=== PATIENT | female | born 1940 | race Caucasian/White ===

== ENCOUNTER 2020-01-30 11:38 | Inpatient (IN) | payer MEDICARE, SELFPAY ==
[2020-01-30] VITALS (9 sets, daily range): BP systolic 99–140; BP diastolic 40–83; PULSE 63–86; RESP 15–19; TEMP 36.8–37.9; O2SAT 97–100; BMI 33.8
--- NOTE | 2020-01-30 12:12 | ECG_ITS ---
Test Reason : SOB Blood Pressure : / mmHG Vent. Rate : 072 BPM Atrial Rate : 254 BPM P-R Int : 000 ms QRS Dur : 128 ms QT Int : 426 ms P-R-T Axes : 054 -73 -73 degrees QTc Int : 466 ms Atrial flutter with variable A-V block with premature ventricular or aberrantly conducted complexes Left axis deviation Non-specific intra-ventricular conduction block T wave abnormality, consider inferior ischemia Abnormal ECG When compared with ECG of 10-MAY-2016 08:57, Atrial flutter has replaced Sinus rhythm T wave inversion now evident in Inferior leads Nonspecific T wave abnormality, worse in Anterolateral leads Referred By: Altagracia Wall Electronically Signed By:FRAN PABON MD
--- NOTE | 2020-01-30 12:13 | XR_ITS ---
EXAMINATION: XR CHEST CLINICAL INFORMATION: SOB, pneumonia, cough COMPARISON: Chest 07/14/2016 TECHNIQUE: Frontal view of the chest was obtained. FINDINGS: The lungs are fairly well-expanded with new patchy opacity seen in left upper lobe and left lower lobe suspicious for infiltrate. There is no suggestion of pleural effusion. The heart size and perivascular is normal. There are median sternotomy sutures from previous intervention. No gross bony abnormality seen. XR/XR chest 1V IMPRESSION: New left upper lobe and left lower lobe infiltrates.
--- NOTE | 2020-01-30 12:19 | ED_ITS ---
HPI - URI/Sore Throat General Chief Complaint: Upper Respiratory Symptoms Stated Complaint: covid+,sob,ams Time Seen by Provider: 01/30/20 12:12 Source: EMS Mode of arrival: EMS Limitations: no limitations History of Present Illness HPI Narrative: 79-year-old female with a past medical history of COPD on chronic home O2, valve replacement, hypertension, high cholesterol, gout, congestive heart failure, SABRINA, depression, diet controlled diabetes, here with generalized weakness, shortness of breath and confusion. The patient tells me she woke up at 04:00 this morning. She called out to her for help but he did not answer. She tells me she started to walk to the bathroom but felt very short of breath and felt confused. She sat down and the symptoms improved. no associated headache, slurred speech, focal weakness. The patient tells me today with walking she does feel short of breath and has a productive cough with yellow sputum. She denies any fevers or chills. She does have some shortness of breath with exertion. No chest pain, leg pain or swelling. She denies confusion on arrival to the emergency department. She is known COVID positive and tested positive 9 days ago MD elicited complaint: cough Onset (ago): day(s) Consistency: intermittent Severity: mild Description of mucous: yellow Able to tolerate fluids by mouth: Yes Exacerbating factors: exertion Relieving factors: rest Associated symptoms: cough and shortness of breath Treatments prior to arrival: none Related Data Allergies Allergy/AdvReac Type Severity Reaction Status Date / Time No Known Allergies Allergy Unverified 11/17/19 14:34 [No Known Allergies*] Review of Systems Review of Systems: Yes all other systems are reviewed and are negative Constitutional: Constitutional: Reports no additional constitutional complaints, Denies body ache(s), Denies chills, Denies fever(s), Denies headache(s) and Denies weakness Eyes: Eyes: Reports no additional eye complaints and Denies change in vision ENT: Reports system reviewed and no additional complaints, except as documented, Denies dizziness, Denies headache(s), Denies nasal congestion, Denies nasal discharge and Denies neck pain Cardiovascular: Cardiovascular: Reports no additional cardiovascular co mplaints, Denies chest pain, Denies leg edema and Reports dyspnea Respiratory: Respiratory: Reports no additional respiratory complaints, Reports cough and Reports dyspnea Gastrointestinal: Gastrointestinal: Reports no additional gastrointestinal complaints, Denies abdominal pain, Denies diarrhea, Denies nausea and Denies vomiting Genitourinary: Genitourinary: Reports no additional female genitourinary complaints and Denies urinary incontinence Musculoskeletal: Musculoskeletal: Reports no additional musculoskeletal complaints, Denies back pain, Denies arthralgias, Denies joint swelling, Denies neck pain, Denies numbness and Denies tingling Integumentary/Breasts: Skin/Breast: Reports system reviewed and no additional complaints, except as docu and Denies rash Neurologic: Reports system reviewed and no additional complaints, except as documented, Denies Abnormal speech present, Reports confusion, Denies dizziness, Denies headache(s), Denies numbness, Denies tingling and Denies weakness Psychiatric: Psychiatric: Reports confusion PMFSH Past Medical History Attestation statement: The following information was validated with the patient. Source: old records reviewed and nursing notes reviewed Medical History COPD (chronic obstructive pulmonary disease) Heart valve problem HTN (hypertension) Social History Social History Advance Directives: No Advance Directives Information Provided: Yes Physical Exam Vital Signs: Vital Signs: Last Vital Signs Pulse 64 01/30/20 15:49 Resp 16 01/30/20 15:49 BP 109/40 L 01/30/20 15:49 Pulse Ox 99 01/30/20 15:49 Body Mass Index 33.8 Const: General: confusion Orientation/consciousness: confusion Limitations: no limitations HENMT: Head: Yes normal to inspection Ears: hearing grossly normal bilaterally General nose exam: Normal external nose present Face and sinus: Yes normal facial exam Mouth: Normal oral and palatal mucosa present Throat: Yes posterior oropharynx normal Eyes: General: appearance normal, both eyes and all related structures Pupils: Equal, round and reactive pupils present Neck: Neck: Yes normal visual inspection Chest: Chest palpation & inspection: normal inspection of the chest Resp: Effort & Inspection: normal respiratory effort Auscultation: rhonchi left upper and right upper Cardio: Rate: regular rate Rhythm: regular rhythm Peripheral pulses: Peripheral pulses 2+ throughout GI: Inspection: Yes normal to inspection Palpation (GI): Soft to palpation and nontender Auscultation: normal bowel sounds Back/Spine/Pelvis: Thoracic/Lumbar Spine: thoracic and lumbar spine normal to inspection Skin: General skin exam: no rashes or lesions noted Neuro: General: confusion Cranial nerves: Yes Equal, round and reactive pupils present Cognition (Neuro): normal cognition Speech: No Abnormal speech present Gait exam (Neuro): Normal gait present Motor exam (neuro): 5/5 motor strength present throughout Extrem: General: Yes normal to inspection Course Course Course Narrative: 79-year-old female here with complaints of shortness of breath, productive cough, Generalized weakness and some confusion this morning. The patient was tested for COVID 9 days ago and is positive. I called and spoke to the son. He tells me the patient called him several times this morning to ask for help and when he saw her Ms. calls he went downstairs to help her. He noticed she seemed confused and checked her oxygen and it was 84%. He thinks that she was disconnected from her nasal cannula through the night. He called EMS for transfer to hospital. On arrival patient is alert and oriented x3. She is stable saturations on her nasal cannula. She does have a productive cough with some congestion. Will check labs, chest x-ray, EKG. Confusion likely secondary to hypoxia. 1330-Chest x-ray consistent with pneumonia. At this time infection suspected. Blood cultures and lactic acid ordered. Antibiotics ordered. 1415-Episode of low blood pressure in the ED from dehydration and not from sepsis. 1605-Elevated troponin. NO chest pain. EKG shows atrial flutter with rate 72. Additional labs pending. May be secondary to abnormal labs which are pending. 1645- Additional electrolytes reviewed and unremarkable. Call out to Cardiology to discuss. CTA ordered to rule out PE. 1730- Multiple calls to cardiology to discuss patient. Repeat troponin pending. Sign out to Idalmis PEÑALOZA pending above. MDM - URI/Sore Throat MDM Narrative Medical decision making narrative: viral syndrome, COVID-19 infection, pneumonia, congestive heart failure, electrolyte abnormality, anemia Medical Records Attestation: I reviewed the patient's medical records. Lab Data Attestation: I reviewed the patient's lab results. Result diagrams: 01/30/20 12:30 01/30/20 14:24 Labs: Lab Results 01/30/20 01/30/20 01/30/20 Range/Units 12:30 12:30 14:24 WBC 9.1 (4.8-10.8) X10*3/uL RBC 4.02 L (4.20-5.50) X10*6/uL Hgb 12.0 (12.0-16.0) g/dl Hct 36.1 L (37-47) % MCV 89.8 (80-98) fL MCH 29.9 (27.0-33.0) pg MCHC 33.2 (31.0-35.0) g/dl RDW 13.3 (11.0-16.0) % Plt Count 415 H (160-400) X10*3/uL MPV 9.9 (9.4-12.3) fL Immature Gran % (Auto) 1.4 H (0.0-0.4) % Neut % (Auto) 72.8 (45-73) % Lymph % (Auto) 14.5 L (20-40) % Foster % (Auto) 11.2 H (2-11) % Eos % (Auto) 0.0 (0-4) % Baso % (Auto) 0.1 (0-2) % Lymph # (Auto) 1.3 (1.2-4.9) X10*3/uL Foster # (Auto) 1.0 (0.1-1.2) X10*3/uL Eos # (Auto) 0.0 (0.0-0.4) X10*3/uL Baso # (Auto) 0.0 (0.0-0.2) X10*3/uL Abs Immat Gran (auto) 0.13 H (0.00-0.03) X10*3/uL Absolute Neuts (auto) 6.6 (2.0-8.3) X10*3/uL Absolute Nucleated RBC 0.000 (0.0-0.012) X10*3/uL Nucleated RBC % (auto) 0.0 (0.0-0.2) /100WBC Smear Tech's Comments VERIFIED Sodium Cancelled Cancelled Potassium Cancelled Cancelled Chloride Cancelled Cancelled Carbon Dioxide Cancelled Cancelled Anion Gap Cancelled Cancelled BUN Cancelled Cancelled Creatinine Cancelled Cancelled Estim Creat Clear Calc Cancelled Cancelled Estimated GFR Cancelled Cancelled Random Glucose Cancelled Cancelled Lactic Acid (0.5-2.0) mmol/L Calcium Cancelled Cancelled Magnesium Cancelled Cancelled Total Bilirubin Cancelled 0.4 Direct Bilirubin Cancelled 0.2 AST Cancelled 34 H ALT Cancelled 15 Alkaline Phosphatase Cancelled 137 H Troponin I High Sens (<3.5-17.0) ng/L B-Natriuretic Peptide (<100) pg/mL Total Protein Cancelled 5.8 L Albumin Cancelled 3.4 L 01/30/20 01/30/20 01/30/20 Range/Units 14:24 14:24 14:32 WBC (4.8-10.8) X10*3/uL RBC (4.20-5.50) X10*6/uL Hgb (12.0-16.0) g/dl Hct (37-47) % MCV (80-98) fL MCH (27.0-33.0) pg MCHC (31.0-35.0) g/dl RDW (11.0-16.0) % Plt Count (160-400) X10*3/uL MPV (9.4-12.3) fL Immature Gran % (Auto) (0.0-0.4) % Neut % (Auto) (45-73) % Lymph % (Auto) (20-40) % Foster % (Auto) (2-11) % Eos % (Auto) (0-4) % Baso % (Auto) (0-2) % Lymph # (Auto) (1.2-4.9) X10*3/uL Foster # (Auto) (0.1-1.2) X10*3/uL Eos # (Auto) (0.0-0.4) X10*3/uL Baso # (Auto) (0.0-0.2) X10*3/uL Abs Immat Gran (auto) (0.00-0.03) X10*3/uL Absolute Neuts (auto) (2.0-8.3) X10*3/uL Absolute Nucleated RBC (0.0-0.012) X10*3/uL Nucleated RBC % (auto) (0.0-0.2) /100WBC Smear Tech's Comments Sodium 131 L Potassium 3.8 Chloride 95 L Carbon Dioxide 23 Anion Gap 17 BUN 17 H Creatinine 0.82 Estim Creat Clear Calc 57.6 Estimated GFR > 60 Random Glucose 72 Lactic Acid (0.5-2.0) mmol/L Calcium 8.5 Magnesium 1.7 Total Bilirubin 0.4 Direct Bilirubin 0.2 AST 34 H ALT 15 Alkaline Phosphatase 136 H Troponin I High Sens 1190.3 H (<3.5-17.0) ng/L B-Natriuretic Peptide 198 H (<100) pg/mL Total Protein 5.8 L Albumin 3.4 L 11/30/20 Range/Units 14:32 WBC (4.8-10.8) X10*3/uL RBC (4.20-5.50) X10*6/uL Hgb (12.0-16.0) g/dl Hct (37-47) % MCV (80-98) fL MCH (27.0-33.0) pg MCHC (31.0-35.0) g/dl RDW (11.0-16.0) % Plt Count (160-400) X10*3/uL MPV (9.4-12.3) fL Immature Gran % (Auto) (0.0-0.4) % Neut % (Auto) (45-73) % Lymph % (Auto) (20-40) % Foster % (Auto) (2-11) % Eos % (Auto) (0-4) % Baso % (Auto) (0-2) % Lymph # (Auto) (1.2-4.9) X10*3/uL Foster # (Auto) (0.1-1.2) X10*3/uL Eos # (Auto) (0.0-0.4) X10*3/uL Baso # (Auto) (0.0-0.2) X10*3/uL Abs Immat Gran (auto) (0.00-0.03) X10*3/uL Absolute Neuts (auto) (2.0-8.3) X10*3/uL Absolute Nucleated RBC (0.0-0.012) X10*3/uL Nucleated RBC % (auto) (0.0-0.2) /100WBC Smear Tech's Comments Sodium Potassium Chloride Carbon Dioxide Anion Gap BUN Creatinine Estim Creat Clear Calc Estimated GFR Random Glucose Lactic Acid 0.9 (0.5-2.0) mmol/L Calcium Magnesium Total Bilirubin Direct Bilirubin AST ALT Alkaline Phosphatase Troponin I High Sens (<3.5-17.0) ng/L B-Natriuretic Peptide (<100) pg/mL Total Protein Albumin ECG Data Attestation: I personally reviewed and interpreted this ECG as follows: ECG interpretation date: 01/30/20 ECG interpretation time: 15:41 Interpretation: Atrial flutter with a variable AV block, rate of 72. Normal QRS, QTC 466, nonspecific ST changes.
[2020-01-30 12:35] LABS: Basophils Percent Auto 0.1 % (0-2); Hematocrit 36.1 % (37-47); Imm Gran Abs Auto 0.13 X10*3/uL (0.00-0.03); Imm Gran Pct Auto 1.4 % (0.0-0.4); Lymphocytes Absolute Auto 1.3 X10*3/uL (1.2-4.9); Lymphocytes Percent Auto 14.5 % (20-40); MANUAL DIFF FLAG SCAN; Mean Corpuscular HGB Conc 33.2 g/dl (31.0-35.0); Mean Corpuscular Hemoglobin 29.9 pg (27.0-33.0); Mean Corpuscular Volume 89.8 fL (80-98); Mean Platelet Volume 9.9 fL (9.4-12.3); Monocytes Percent Auto 11.2 % (2-11); Neutrophils Absolute Auto 6.6 X10*3/uL (2.0-8.3); Neutrophils Percent Auto 72.8 % (45-73); Platelet Count 415 X10*3/uL (160-400); Red Blood Count 4.02 X10*6/uL (4.20-5.50); Red Cell Distribution Width 13.3 % (11.0-16.0); SCAN SMEAR FLAG 1; White Blood Count 9.1 X10*3/uL (4.8-10.8)
[2020-01-30 13:01] LABS: SLIDE REVIEW VERIFIED
[2020-01-30] MEDS: cefTRIAXone sodium 1 GM in 0.9 % Sodium Chloride 50 ML IV (14:39)
[2020-01-30] MEDS: 0.9 % Sodium Chloride 1,000 ML 999 ML IV (14:41)
[2020-01-30 15:05] LABS: Lactic Acid 0.9 mmol/L (0.5-2.0)
[2020-01-30 15:07] LABS: Alanine Aminotransferase 15 U/L (0-31); Albumin Level 3.4 g/dL (3.5-5.0); Alkaline Phosphatase 137 U/L (39-117); Aspartate Amino Transferase 34 U/L (5-31); Bilirubin Direct 0.2 mg/dL (0.0-0.5); Bilirubin Total 0.4 mg/dL (0.0-1.0); Total Protein 5.8 g/dL (6.5-8.0)
[2020-01-30 15:08] LABS: Alanine Aminotransferase 15 U/L (0-31); Albumin Level 3.4 g/dL (3.5-5.0); Alkaline Phosphatase 136 U/L (39-117); Aspartate Amino Transferase 34 U/L (5-31); Bilirubin Direct 0.2 mg/dL (0.0-0.5); Bilirubin Total 0.4 mg/dL (0.0-1.0); Total Protein 5.8 g/dL (6.5-8.0)
[2020-01-30 15:22] LABS: B Type Natriuretic Peptide 198 pg/mL (<100)
[2020-01-30 15:33] LABS: Troponin-I High Sensitivity 1190.3 ng/L (<3.5-17.0)
[2020-01-30 15:34] LABS: Magnesium 1.7 mg/dL (1.6-2.6)
--- NOTE | 2020-01-30 15:52 | PC.NURSE ---
pt resting comfortably, bronchial and vesicular ls clear and = bilat pt afib on monitor, denies chest discomfort sob or any other symptoms.
--- NOTE | 2020-01-30 15:55 | PC.NURSE ---
AWARE CRTI TROP RESULT. EKG OBTAINED AND REVIEWED.
--- NOTE | 2020-01-30 16:38 | PC.NURSE ---
lab called regarding BMP results, per lab they were cancelled but are now being run on previously drawn tube. pt ambulated approx 30 ft without o2, pt o2 sat 99% immediatly after being placed back on 2lpm. awaiting bmp and repeat trop.
[2020-01-30 16:42] LABS: Anion Gap 17 (12-20); Blood Urea Nitrogen 17 mg/dL (9-16); Calcium 8.5 mg/dL (8.4-10.2); Carbon Dioxide 23 mmol/L (22-29); Chloride 95 mmol/L (96-108); Creatinine Clr Calc Pharmacy 57.6; Estimated Glomerular Filt Rate > 60; Glucose Random 72 mg/dL (60-115); Potassium 3.8 mmol/l (3.3-5.1); Sodium 131 mmol/L (135-145)
--- NOTE | 2020-01-30 16:47 | CT_ITS ---
EXAMINATION: CTA CHEST PE STUDY CLINICAL INFORMATION: elevated troponin, SOB, hypoxia, r/o pe COMPARISON: No pertinent prior studies are available for comparison. TECHNIQUE: Prior to contrast administration, noncontrast localization images were obtained. After the administration of 65 mL of Omnipaque 350 IV contrast, contiguous thin slice helical images were obtained through the thorax. Reformatted MIP images in the coronal and sagittal planes were obtained at the acquisition workstation. This CT examination was performed using dose optimization techniques as appropriate, variously including the following: *Automated exposure control *Adjustment of mA and/or kV according to patient size (this includes techniques or standardized protocols for targeted exams where dose is matched to indication/reason for exam; i.e. extremities or head) *Use of iterative reconstruction technique DLP: 554 mGy-cm. FINDINGS: The bolus timing on this study was acceptable for visualization of the pulmonary arterial tree. There is a focal filling defect in the right lower lobe pulmonary artery consistent with pulmonary embolism. This best appreciated on axial image 334/533. Patchy bilateral airspace disease is seen left more so than right. Atypical or viral infectious etiology would be suspected with this distribution. This does not correspond to the right lower lobe pulmonary emboli. No abnormal pulmonary nodules or masses are appreciated. No significant hilar or mediastinal adenopathy. There is no evidence of pleural effusion or pneumothorax. The heart is normal in size. No evidence of ventricular septal bowing or right heart strain. Great vessels are normal. Otherwise the mediastinum is unremarkable. There is no pericardial effusion or pericardial thickening. Limited evaluation of the upper abdominal viscera demonstrates a lap band in the visualized upper abdomen. Multilevel degenerative changes in the spine.. CT/CT angio chest PE protocol IMPRESSION: There is evidence for a segmental and subsegmental filling defect in the right lower lobe pulmonary arteries consistent with pulmonary emboli. There is patchy bilateral groundglass airspace disease seen left more so than right. The airspace disease is more diffuse than the right sided pulmonary emboli and underlying viral or atypical infectious etiology would be suspected in this setting. COVID 19 cannot be excluded and should be clinically correlated. This critical result was discussed with Idalmis Early at 01/30/2020 6:44 PM and it was ascertained that the content and urgency of the report was understood at the time of direct communication. VTE: Positive
[2020-01-30] MEDS: Azithromycin 500 MG in 0.9 % Sodium Chloride 250 ML 125 MG IV (17:44)
[2020-01-30] MEDS: iohexoL 350 MG/ML 100 ML INFUS..BTL IV (18:14)
[2020-01-30 19:03] LABS: Glucose Urine UA NEG (NEG); Leukocyte Esterase Urine NEG (NEG); Nitrite Urine NEG (NEG); PH 5.5 (5.0-8.0); Specific Gravity - Urine <= 1.005 (1.005-1.025); Urine Blood TRACE (NEG); Urine Ketones NEG (NEG); Urine Protein NEG (NEG-TRACE)
[2020-01-30 19:05] LABS: Appearance Urine CLEAR; Color Urine YELLOW
[2020-01-30 19:10] LABS: INTERNATIONAL NORM RATIO 1.1 (0.9-1.1); Prothrombin Time 13.1 SEC (10.8-13.0)
[2020-01-30 19:13] LABS: Partial Thromboplastin Time 29.6 SEC (24.1-38.0)
[2020-01-30 19:18] LABS: Bacteria Urine 1+ /LPF; RBC Urine 0 /HPF (0); Squamous Epithelial Cell Urine 1+ /LPF; WBC Urine 0 /HPF (0-4)
[2020-01-30 19:38] LABS: Troponin-I High Sensitivity 1751.5 ng/L (<3.5-17.0)
--- NOTE | 2020-01-30 19:40 | PC.NURSE ---
ASSUMED CARE OF PT. PT RESTING IN STRETCHER. HOSPITALIST AT BEDSIDE WITH PT. PT ALERT, RESPIRATIONS N/L. PA ORDERED ELIQUIS TO BE HELD AT THIS TIME. HOSPITALIST AT BEDSIDE FOR EVAL. REPEAT TROP 1751.1 PA AWARE. ZITHROMAX INFUSING W/O DIFFICULTY. AWAITING FOR FURTHER ORDERS.
[2020-01-30] MEDS: Enoxaparin Sodium 100 MG/ML SYRINGE 85 MG SUBCUT (20:27)
--- NOTE | 2020-01-30 20:44 | PM.IMHP ---
History of Present Illness Date of Service: 01/30/20 <Toya Brown NP - Last Filed: 01/30/20 21:11> Chief Complaint: Shortness of breath <Toya Brown NP - Last Filed: 01/30/20 21:11> 79-year-old woman presented to the ER with complaints of worsening shortness of breath and weakness. She reports that approximately 2 weeks ago her son had tested positive for COVID and she had previously tested negative. Then her son encouraged her and her to go back to get tested again and last Thursday they tested positive. Throughout the week they continued to decline and have increased shortness of breath coughing with green and brown sputum, fevers, chills. She does have chronic respiratory failure related to COPD and does use home oxygen however she had been using it more frequently. She reported that she had been quarantine at home for her symptoms full worse especially yesterday where she had increased shortness of breath and lethargy and decided to come into the ER to be evaluated. Chest CT subsequently showed right lower lobe pulmonary emboli with patchy bilateral ground-glass airspace opacities. She had mild decrease in her sodium, she was noted to have an elevated troponin of 1109 D with BP of 1751. She had no complaints of chest pain and her EKG showed new atrial flutter. She did not appear to have any hypoxic episodes while in the ER. She did have some episodes of hypotension but these did resolve. She was started on therapeutic Lovenox in the ER. Given a dose of ceftriaxone, Rocephin. She be admitted for further management and treatment of coronavirus pneumonia, new pulmonary embolus and new onset atrial flutter. <Toya Brown NP - Last Filed: 01/30/20 21:11> Review of Systems Review of Systems: Denies any recent fever chills or decrease in appetite respiratory See HPI cardiovascular is adjustment of any PND or edema gastrointestinal denies any dysphagia abdominal pain nausea vomiting or diarrhea genitourinary denies any dysuria frequency or hematuria musculoskeletal denies any joint pain or swelling neuropsych denies any weakness or seizures all other systems reviewed are negative <Toya Brown NP - Last Filed: 01/30/20 21:11> Constitutional: Constitutional: Denies headache(s) and Denies weakness <Toya Brown NP - Last Filed: 01/30/20 21:11> ENT: Denies dizziness and Denies headache(s) <Toya Brown NP - Last Filed: 01/30/20 21:11> Musculoskeletal: Musculoskeletal: Denies numbness and Denies tingling <Toya Brown NP - Last Filed: 01/30/20 21:11> Neurologic: Reports system reviewed and no additional complaints, except as documented, Denies Abnormal speech present, Reports confusion, Denies dizziness, Denies headache(s), Denies numbness, Denies tingling and Denies weakness <Toya Brown NP - Last Filed: 01/30/20 21:11> Psychiatric: Psychiatric: Reports confusion <Toya Brown NP - Last Filed: 01/30/20 21:11> [facility] Medical History: Medical History Acute respiratory failure CHF (congestive heart failure) COPD (chronic obstructive pulmonary disease) Depression Diabetes mellitus Gout Heart valve problem HTN (hypertension) Myocarditis Obesity SABRINA on CPAP Pneumonia <Toya Brown NP - Last Filed: 01/30/20 21:11> Functional capacity: independent ambulation <Toya Brown NP - Last Filed: 01/30/20 21:11> Family History: Family History Sister Lung cancer Mother Renal cancer Other Diabetes mellitus <Toya Brown NP - Last Filed: 01/30/20 21:11> Surgical History: Surgical History History of aortic valve replacement with bioprosthetic valve History of total right hip arthroplasty Hx of laparoscopic gastric banding Previous back surgery <Toya Brown NP - Last Filed: 01/30/20 21:11> Social History: Social History Household Members: Family Housing: House Alcohol intake: never Smoking Status: Former smoker service: No Current occupational status: retired <Toya Brown NP - Last Filed: 01/30/20 21:11> Meds Allergies/Adverse reactions: Allergies Allergy/AdvReac Type Severity Reaction Status Date / Time No Known Allergies Allergy Unverified 11/17/19 14:34 [No Known Allergies*] <Toya Brown NP - Last Filed: 01/30/20 21:11> Home medications: Home Medications Medication Instructions Recorded Confirmed Type Kendall [place] 1 inh INHALATION DAILY 01/30/20 01/30/20 History allopurinol 100 mg PO DAILY 01/30/20 01/30/20 History bupropion HCl 150 mg PO DAILY@1700 01/30/20 01/30/20 History bupropion HCl 300 mg PO DAILY 01/30/20 01/30/20 History diltiazem HCl [DILT-XR] 240 mg PO DAILY 01/30/20 01/30/20 History duloxetine 60 mg PO DAILY 01/30/20 01/30/20 History furosemide 80 mg PO DAILY 01/30/20 01/30/20 History omeprazole 20 mg PO DAILY 01/30/20 01/30/20 History potassium chloride 10 meq PO DAILY 01/30/20 01/30/20 History rosuvastatin 20 mg PO DAILY 01/30/20 01/30/20 History <Toya Brown NP - Last Filed: 01/30/20 21:11> Physical Exam Vital Signs and Narrative: Vital Signs: Last Vital Signs Pulse 70 01/30/20 19:01 Resp 18 01/30/20 19:01 BP 116/52 L 01/30/20 19:01 Pulse Ox 100 01/30/20 19:01 Body Mass Index 33.8 <Toya Brown NP - Last Filed: 01/30/20 21:11> Const: General: confusion <Toya Brown NP - Last Filed: 01/30/20 21:11> Orientation/consciousness: confusion <Toya Brown NP - Last Filed: 01/30/20 21:11> Neuro: General: confusion <Toya Brown NP - Last Filed: 01/30/20 21:11> Speech: No Abnormal speech present <Toya Brown NP - Last Filed: 01/30/20 21:11> Results Labs CBC and Chem 7: : 02/01/20 05:44 02/01/20 05:44 <Toya Brown NP - Last Filed: 01/30/20 21:11> Labs: Laboratory Results - last 24 hr 01/30/20 01/30/20 01/30/20 12:30 12:30 14:24 MCV 89.8 MCH 29.9 MCHC 33.2 RDW 13.3 Plt Count 415 H MPV 9.9 Immature Gran % (Auto) 1.4 H Neut % (Auto) 72.8 Lymph % (Auto) 14.5 L [place] % (Auto) 11.2 H Eos % (Auto) 0.0 Baso % (Auto) 0.1 Lymph # (Auto) 1.3 [place] # (Auto) 1.0 Eos # (Auto) 0.0 Baso # (Auto) 0.0 Abs Immat Gran (auto) 0.13 H Absolute Neuts (auto) 6.6 Absolute Nucleated RBC 0.000 Nucleated RBC % (auto) 0.0 Smear Tech's Comments VERIFIED PT INR APTT Anion Gap Cancelled Cancelled Estim Creat Clear Calc Cancelled Cancelled Estimated GFR Cancelled Cancelled Random Glucose Cancelled Cancelled Lactic Acid Calcium Cancelled Cancelled Magnesium Cancelled Cancelled Total Bilirubin Cancelled 0.4 Direct Bilirubin Cancelled 0.2 AST Cancelled 34 H ALT Cancelled 15 Alkaline Phosphatase Cancelled 137 H Troponin I High Sens B-Natriuretic Peptide Total Protein Cancelled 5.8 L Albumin Cancelled 3.4 L Urine Color Urine Appearance Urine pH Ur Specific [place] Urine Protein Urine Glucose (UA) Urine Ketones Urine Blood Urine Nitrite Ur Leukocyte Esterase Urine RBC Urine WBC Ur Squamous Epith Cells Urine Bacteria 01/30/20 01/30/20 01/30/20 14:24 14:24 14:32 MCV MCH MCHC RDW Plt Count MPV Immature Gran % (Auto) Neut % (Auto) Lymph % (Auto) [place] % (Auto) Eos % (Auto) Baso % (Auto) Lymph # (Auto) [place] # (Auto) Eos # (Auto) Baso # (Auto) Abs Immat Gran (auto) Absolute Neuts (auto) Absolute Nucleated RBC Nucleated RBC % (auto) Smear Tech's Comments PT INR APTT Anion Gap 17 Estim Creat Clear Calc 57.6 Estimated GFR > 60 Random Glucose 72 Lactic Acid Calcium 8.5 Magnesium 1.7 Total Bilirubin 0.4 Direct Bilirubin 0.2 AST 34 H ALT 15 Alkaline Phosphatase 136 H Troponin I High Sens 1190.3 H B-Natriuretic Peptide 198 H Total Protein 5.8 L Albumin 3.4 L Urine Color Urine Appearance Urine pH Ur Specific [place] Urine Protein Urine Glucose (UA) Urine Ketones Urine Blood Urine Nitrite Ur Leukocyte Esterase Urine RBC Urine WBC Ur Squamous Epith Cells Urine Bacteria 01/30/20 01/30/20 01/30/20 14:32 18:46 18:53 MCV MCH MCHC RDW Plt Count MPV Immature Gran % (Auto) Neut % (Auto) Lymph % (Auto) [place] % (Auto) Eos % (Auto) Baso % (Auto) Lymph # (Auto) [place] # (Auto) Eos # (Auto) Baso # (Auto) Abs Immat Gran (auto) Absolute Neuts (auto) Absolute Nucleated RBC Nucleated RBC % (auto) Smear Tech's Comments PT 13.1 H INR 1.1 APTT 29.6 Anion Gap Estim Creat Clear Calc Estimated GFR Random Glucose Lactic Acid 0.9 Calcium Magnesium Total Bilirubin Direct Bilirubin AST ALT Alkaline Phosphatase Troponin I High Sens B-Natriuretic Peptide Total Protein Albumin Urine Color YELLOW Urine Appearance CLEAR Urine pH 5.5 Ur Specific [place] <= 1.005 Urine Protein NEG Urine Glucose (UA) NEG Urine Ketones NEG Urine Blood TRACE Urine Nitrite NEG Ur Leukocyte Esterase NEG Urine RBC 0 Urine WBC 0 Ur Squamous Epith Cells 1+ Urine Bacteria 1+ 01/30/20 18:53 MCV MCH MCHC RDW Plt Count MPV Immature Gran % (Auto) Neut % (Auto) Lymph % (Auto) [place] % (Auto) Eos % (Auto) Baso % (Auto) Lymph # (Auto) [place] # (Auto) Eos # (Auto) Baso # (Auto) Abs Immat Gran (auto) Absolute Neuts (auto) Absolute Nucleated RBC Nucleated RBC % (auto) Smear Tech's Comments PT INR APTT Anion Gap Estim Creat Clear Calc Estimated GFR Random Glucose Lactic Acid Calcium Magnesium Total Bilirubin Direct Bilirubin AST ALT Alkaline Phosphatase Troponin I High Sens 1751.5 H B-Natriuretic Peptide Total Protein Albumin Urine Color Urine Appearance Urine pH Ur Specific [place] Urine Protein Urine Glucose (UA) Urine Ketones Urine Blood Urine Nitrite Ur Leukocyte Esterase Urine RBC Urine WBC Ur Squamous Epith Cells Urine Bacteria <Toya Brown NP - Last Filed: 01/30/20 21:11> Imaging Radiologist's Impressions: Impressions Chest X-Ray 01/30/20 12:13 IMPRESSION: New left upper lobe and left lower lobe infiltrates. Chest CTA 01/30/20 16:47 IMPRESSION: There is evidence for a segmental and subsegmental filling defect in the right lower lobe pulmonary arteries consistent with pulmonary emboli. There is patchy bilateral groundglass airspace disease seen left more so than right. The airspace disease is more diffuse than the right sided pulmonary emboli and underlying viral or atypical infectious etiology would be suspected in this setting. COVID 19 cannot be excluded and should be clinically correlated. This critical result was discussed with Idalmis Early at 01/30/2020 6:44 PM and it was ascertained that the content and urgency of the report was understood at the time of direct communication. VTE: Positive <Toya Brown NP - Last Filed: 01/30/20 21:11> Assessment and Plan (1) COVID-19: Problem details: She has COVID She is on oxygen as she is at home but with slightly elevated needs She has new PE and is on anticoagulation She has atrial flutter Prognosis guarded <Toya Brown NP - Last Filed: 01/30/20 21:11> (2) Pulmonary embolism: Qualifiers: Acute cor pulmonale presence: without acute cor pulmonale Chronicity: acute Pulmonary embolism type: unspecified Qualified Code(s): I26.99 - Other pulmonary embolism without acute cor pulmonale <Toya Brown NP - Last Filed: 01/30/20 21:11> Status: Acute <Toya Brown NP - Last Filed: 01/30/20 21:11> (3) Atrial flutter: Qualifiers: Atrial flutter type: unspecified Qualified Code(s): I48.92 - Unspecified atrial flutter <Toya Brown NP - Last Filed: 01/30/20 21:11> Status: Resolved <Toya Brown NP - Last Filed: 01/30/20 21:11> 79-year-old woman admitted with COVID 19 pneumonia, new pulmonary embolus and a flutter. COVID-19 pneumonia. Will treat with Rocephin and azithromycin. Id consult, Decadron. Isolation. Add on Procal, ferritin and LDH. Elevated troponin. No chest pain. Likely related to pulmonary embolus and COVID-19. Will trend troponins, patient will be on therapeutic Lovenox for new pulmonary embolus and atrial flutter anyways. Cardiology to follow, trend troponins, EKG. Pulmonary embolus. Possibly related to COVID-19. Will treat with therapeutic Lovenox, echocardiogram in the morning. No heart strain shown on chest CTA. New atrial flutter. Rate controlled. Follow EKGs, cardiology to follow. Telemetry monitoring Chronic respiratory failure related to COPD on home oxygen. No exacerbation. albuterol as needed. Depression. Continue home medications. Hypertension. Hold home medications to episodes of hypotension. GERD. Continue PPI. Obesity. BMI 33.8. May contribute to other comorbidities. DVT prophylaxis with therapeutic Lovenox Discussed with Dr. Mohamud Full code Hyperlipidemia. Continue statin. <Toya Brown NP - Last Filed: 01/30/20 21:11>
--- NOTE | 2020-01-30 21:39 | PC.NURSE ---
attempted to call report to quynh friedman. no answer
[2020-01-30 22:44] LABS: Lactate Dehydrogenase 308 U/L (122-220)
[2020-01-30] MEDS: 0.9 % Sodium Chloride Flush 3 ML SYRINGE IVFLUSH (23:03)
[2020-01-30 23:06] LABS: Ferritin 388 ng/mL (10-250)
[2020-01-30 23:07] LABS: Hematocrit 36.2 % (37-47); Hemoglobin 11.9 g/dl (12.0-16.0); Mean Corpuscular HGB Conc 32.9 g/dl (31.0-35.0); Mean Corpuscular Hemoglobin 30.1 pg (27.0-33.0); Mean Corpuscular Volume 91.4 fL (80-98); Platelet Count 457 X10*3/uL (160-400); Red Blood Count 3.96 X10*6/uL (4.20-5.50); Red Cell Distribution Width 13.4 % (11.0-16.0); White Blood Count 10.1 X10*3/uL (4.8-10.8)
[2020-01-30 23:09] LABS: Procalcitonin 0.28 ng/mL
[2020-01-30 23:16] LABS: INTERNATIONAL NORM RATIO 1.2 (0.9-1.1); Prothrombin Time 13.8 SEC (10.8-13.0)
[2020-01-30 23:35] LABS: Troponin-I High Sensitivity 2052.7 ng/L (<3.5-17.0)
--- NOTE | 2020-01-30 23:41 | P.EN_ITS ---
Event Note Date of Service: 01/30/20 Event Note: admission note: 79 y/o female who presented from home due to SOB. To be admitted due to acute on chronic respiratory failure secondary to covid 19 infection and PE. ROS and Physical exam as per H and P. PMHX: CHF (congestive heart failure) COPD (chronic obstructive pulmonary disease) Depression Diabetes mellitus Gout Heart valve problem HTN (hypertension) Obesity SABRINA on CPAP PSx: History of aortic valve replacement with bioprosthetic valve History of total right hip arthroplasty Hx of laparoscopic gastric banding Previous back surgery Assessment/Plan: 1- Acute on chronic respiratory failure secondary to covid 19 infection and PE Continue with Full dose anticoagulation Continue with albuterol inhaler Continue with O2 supplement and titrate off as tolerated Continue with IV antbx and follow up Bcx / Ucx Infectious disease consult in the am Pulmonology consult as ordered No evidence of right heart strain on CTA but troponin increasing from 1190 to 1751 to 2056 Follow 2D Echo in the am. Patient is chest pain free at present front desk monitor Cardiology consult in the am Rest of the plan and management as discussed with ANABELA Brown per H and P
[2020-01-31] VITALS: BP 123/70; PULSE 85; RESP 16; TEMP 37.9; O2SAT 99
[2020-01-31 00:09] LABS: Influenza A PCR NEGATIVE (Negative); Influenza B PCR NEGATIVE (Negative); Resp Syncy Virus RNA Qual PCR NEGATIVE (Negative)
[2020-01-31 00:13] LABS: SARS COV2 PCR INHOUSE POSITIVE (Negative)
[2020-01-31 04:00] VITALS: BP 133/62; PULSE 82; RESP 16; O2SAT 99
--- NOTE | 2020-01-31 06:00 | ECG_ITS ---
Test Reason : NEW AFLUTTER Blood Pressure : / mmHG Vent. Rate : 074 BPM Atrial Rate : 256 BPM P-R Int : 000 ms QRS Dur : 136 ms QT Int : 482 ms P-R-T Axes : 000 -60 240 degrees QTc Int : 535 ms Atrial flutter with variable A-V block Left axis deviation Non-specific intra-ventricular conduction block T wave abnormality, consider inferior ischemia T wave abnormality, consider anterolateral ischemia Abnormal ECG When compared to the previous EKG of No significant changes seen Referred By: Toya Brown Electronically Signed By:FRAN PABON MD
[2020-01-31] MEDS: Omeprazole 20 MG CAPSULE.DR PO (06:23)
[2020-01-31 06:54] LABS: Hematocrit 34.5 % (37-47); Hemoglobin 11.2 g/dl (12.0-16.0); Mean Corpuscular HGB Conc 32.5 g/dl (31.0-35.0); Mean Corpuscular Hemoglobin 29.6 pg (27.0-33.0); Mean Platelet Volume 10.1 fL (9.4-12.3); Platelet Count 471 X10*3/uL (160-400); Red Blood Count 3.79 X10*6/uL (4.20-5.50); Red Cell Distribution Width 13.6 % (11.0-16.0); White Blood Count 9.8 X10*3/uL (4.8-10.8)
[2020-01-31 07:01] LABS: Anion Gap 13 (12-20); Blood Urea Nitrogen 12 mg/dL (9-16); Calcium 8.5 mg/dL (8.4-10.2); Carbon Dioxide 27 mmol/L (22-29); Chloride 98 mmol/L (96-108); Creatinine Clr Calc Pharmacy 60.6; Estimated Glomerular Filt Rate > 60; Glucose Random 60 mg/dL (60-115); Potassium 4.2 mmol/l (3.3-5.1); Sodium 134 mmol/L (135-145)
[2020-01-31 07:21] LABS: Troponin-I High Sensitivity 2504.1 ng/L (<3.5-17.0)
[2020-01-31 07:36] VITALS: BP 125/60; PULSE 78; RESP 18; TEMP 36.2; O2SAT 98
[2020-01-31] MEDS: DULoxetine HCl 60 MG CAPSULE.DR PO (08:25)
[2020-01-31] MEDS: Atorvastatin Calcium 80 MG TABLET PO (08:25)
[2020-01-31] MEDS: buPROPion HCl XL 300 MG TAB.ER.24H PO (08:26)
[2020-01-31] MEDS: allopurinoL 100 MG TABLET PO (08:26)
[2020-01-31] MEDS: dexAMETHasone 6 MG TABLET PO (08:26)
[2020-01-31] MEDS: 0.9 % Sodium Chloride Flush 3 ML SYRINGE IVFLUSH ×2 (08:26→16:38)
[2020-01-31] MEDS: Enoxaparin Sodium 80 MG/0.8 ML SYRINGE SUBCUT ×2 (08:26→20:25)
[2020-01-31 08:40] LABS: Atypical Lymph Absolute Manual 0.1 x10*3/uL; Atypical Lymphs Percent Manual 1 % (0-6); Band Neutrophils Percent 3 % (3-5); Lymphocytes Absolute Manual 1.1 X10*3/uL (0.6-4.8); Lymphocytes Percent Manual 11 % (20-40); Metamyelocytes Absolute 0.1 X10*3/uL; Metamyelocytes Percent 1 %; Monocytes Absolute Manual 0.8 X10*3/uL (0.0-1.2); Monocytes Percent Manual 8 % (2-11); Neutrophils Absolute Manual 7.7 X10*3/uL (2.2-7.9); Neutrophils Percent Manual 76 % (45-73); RBC Morphology NOTED
[2020-01-31 08:41] LABS: Hypochromasia 1+; Macrocytosis 1+; Platelet Estimate INCREASED (NORMAL)
[2020-01-31 08:42] LABS: Large Platelet PRESENT; Platelet Morphology Comment NOTED
--- NOTE | 2020-01-31 09:28 | P.CONPL_ITS ---
History of Present Illness History of Present Illness Consult date: 01/31/20 Chief complaint: covid+,new pe and aflutter Narrative: 79-year-old woman presented to the ER with complaints of worsening shortness of breath and weakness. She reports that approximately 2 weeks ago her son had tested positive for COVID and she had previously tested negative. Then her son encouraged her and her to go back to get tested again and last Thursday they tested positive. Throughout the week they continued to decline and have increased shortness of breath coughing with green and brown sputum, fevers, chills. She does have chronic respiratory failure related to COPD and does use home oxygen however she had been using it more frequently. She reported that she had been quarantine at home for her symptoms full worse especially yesterday where she had increased shortness of breath and lethargy and decided to come into the ER to be evaluated. Chest CT subsequently showed right lower lobe pulmonary emboli with patchy bilateral ground-glass airspace opacities and consolidation. She had mild decrease in her sodium, she was noted to have an elevated troponin of 1109. She had no complaints of chest pain and her EKG showed new atrial flutter. She did not appear to have any hypoxic episodes while in the ER. She did have some episodes of hypotension but these did resolve. She was started on therapeutic Lovenox in the ER. Given a dose of ceftriaxone, Rocephin. She be admitted for further management and treatment of coronavirus pneumonia, new pulmonary embolus and new onset atrial flutter. Currently the patient is doing well. She denies any chest pains. She is responding well to the oxygen. Review of Systems Constitutional: Constitutional: Denies headache(s) and Denies weakness ENT: Denies dizziness and Denies headache(s) Cardiovascular: Cardiovascular: Reports palpitations Respiratory: Respiratory: Reports cough and Denies pain with cough Musculoskeletal: Musculoskeletal: Denies numbness and Denies tingling Neurologic: Reports system reviewed and no additional complaints, except as documented, Denies Abnormal speech present, Denies dizziness, Denies headache(s), Denies numbness, Denies tingling and Denies weakness Endocrine: Endocrine: Reports palpitations PMFSH Past Medical History Medical History (Updated 01/31/20 @ 09:34 by Victor Hugo Brown MD) Acute respiratory failure CHF (congestive heart failure) COPD (chronic obstructive pulmonary disease) Depression Diabetes mellitus Gout Heart valve problem HTN (hypertension) Myocarditis Obesity SABRINA on CPAP Pneumonia Functional capacity: independent ambulation Family History Family History (Updated 01/30/20 @ 20:48 by Toya Brown NP) Sister Lung cancer Mother Renal cancer Other Diabetes mellitus Surgical History Surgical History History of aortic valve replacement with bioprosthetic valve History of total right hip arthroplasty Hx of laparoscopic gastric banding Previous back surgery Social History Social History (Updated 01/30/20 @ 20:48 by Toya Brown NP) Household Members: Family Household Members Other:: lives with her and her son Housing: House Do you presently have visiting nurse or other home services: No Alcohol intake: never Smoking Status: Former smoker Use of substances other than those prescribed or required for medical reasons: No Have you been hit, kicked, punched, or otherwise hurt by someone within the past year? If so, by whom?: No Do you feel safe in your current relationship?: Yes Is there a partner from a previous relationship who is making you feel unsafe now?: No Are you made to feel afraid or neglected: No Advance Directives: No Advance Directives Information Provided: Yes Do you have thoughts of harming others: None Do you have a plan to hurt others: No Plan Recently lost weight without trying: No Meds Allergies Allergy/AdvReac Type Severity Reaction Status Date / Time No Known Allergies Allergy Unverified 11/17/19 14:34 [No Known Allergies*] Home Medications Medication Instructions Recorded Confirmed Type allopurinol 100 mg PO DAILY 01/30/20 01/30/20 History bupropion HCl 150 mg PO DAILY@1700 01/30/20 01/30/20 History bupropion HCl 300 mg PO DAILY 01/30/20 01/30/20 History diltiazem HCl [DILT-XR] 240 mg PO DAILY 01/30/20 01/30/20 History duloxetine 60 mg PO DAILY 01/30/20 01/30/20 History [id number]-rhwikemop-crixtpxd 1 inh INHALATION DAILY 01/30/20 01/30/20 History [Trelegy Ellipta] furosemide 80 mg PO DAILY 01/30/20 01/30/20 History lisinopril 20 mg PO DAILY 01/30/20 01/30/20 History omeprazole 20 mg PO DAILY 01/30/20 01/30/20 History potassium chloride 10 meq PO DAILY 01/30/20 01/30/20 History rosuvastatin 20 mg PO DAILY 01/30/20 01/30/20 History Physical Exam Vital Signs: Vital Signs: Last Vital Signs Temp 97.1 F 01/31/20 07:36 Pulse 78 01/31/20 07:36 Resp 18 01/31/20 07:36 BP 125/60 01/31/20 07:36 Pulse Ox 98 01/31/20 07:36 Body Mass Index 33.8 Const: General: comfortable and alert HENMT: General nose exam: Abnormal external nose present and Nasal discharge present Eyes: Pupils: Equal, round and reactive pupils present Neck: Neck: Yes normal visual inspection, Yes full ROM and Yes no lymphadenopathy Chest: Chest palpation & inspection: normal inspection of the chest Resp: Auscultation: diminished lung sounds Cardio: Rate: regular rate Rhythm: regular rhythm Heart sounds: S1 normal heart sound present and S2 normal heart sound present GI: Palpation (GI): Soft to palpation and nontender Auscultation: normal bowel sounds Skin: General skin exam: rashes and/or lesions noted Neuro: Cranial nerves: Yes Equal, round and reactive pupils present Speech: No Abnormal speech present Results Laboratory Findings CBC and BMP: 01/31/20 05:50 01/31/20 05:50 ABG, PT/INR, D-dimer: PT/INR, D-dimer PT 13.8 SEC (10.8-13.0) H 01/30/20 22:53 INR 1.2 (0.9-1.1) H 01/30/20 22:53 Abnormal lab findings: Abnormal Labs 01/30/20 01/30/20 01/30/20 12:30 14:24 14:24 RBC 4.02 L Hgb Hct 36.1 L Plt Count 415 H Immature Gran % (Auto) 1.4 H Lymph % (Auto) 14.5 L [place] % (Auto) 11.2 H Abs Immat Gran (auto) 0.13 H Neutrophils % (Manual) Lymphocytes % (Manual) PT INR Sodium 131 L Chloride 95 L BUN 17 H Ferritin 388 H AST 34 H 34 H Alkaline Phosphatase 137 H 136 H Lactate Dehydrogenase 308 H Troponin I High Sens B-Natriuretic Peptide Total Protein 5.8 L 5.8 L Albumin 3.4 L 3.4 L Coronavirus (PCR) 01/30/20 01/30/20 01/30/20 14:32 18:53 18:53 RBC Hgb Hct Plt Count Immature Gran % (Auto) Lymph % (Auto) [place] % (Auto) Abs Immat Gran (auto) Neutrophils % (Manual) Lymphocytes % (Manual) PT 13.1 H INR Sodium Chloride BUN Ferritin AST Alkaline Phosphatase Lactate Dehydrogenase Troponin I High Sens 1190.3 H 1751.5 H B-Natriuretic Peptide 198 H Total Protein Albumin Coronavirus (PCR) 01/30/20 01/30/20 01/30/20 22:53 22:53 22:53 RBC 3.96 L Hgb 11.9 L Hct 36.2 L Plt Count 457 H Immature Gran % (Auto) Lymph % (Auto) [place] % (Auto) Abs Immat Gran (auto) Neutrophils % (Manual) Lymphocytes % (Manual) PT 13.8 H INR 1.2 H Sodium Chloride BUN Ferritin AST Alkaline Phosphatase Lactate Dehydrogenase Troponin I High Sens 2052.7 H B-Natriuretic Peptide Total Protein Albumin Coronavirus (PCR) 01/30/20 01/31/20 01/31/20 23:09 05:50 05:50 RBC 3.79 L Hgb 11.2 L Hct 34.5 L Plt Count 471 H Immature Gran % (Auto) Lymph % (Auto) [place] % (Auto) Abs Immat Gran (auto) Neutrophils % (Manual) 76 H Lymphocytes % (Manual) 11 L PT INR Sodium 134 L Chloride BUN Ferritin AST Alkaline Phosphatase Lactate Dehydrogenase Troponin I High Sens B-Natriuretic Peptide Total Protein Albumin Coronavirus (PCR) POSITIVE A 01/31/20 05:50 RBC Hgb Hct Plt Count Immature Gran % (Auto) Lymph % (Auto) [place] % (Auto) Abs Immat Gran (auto) Neutrophils % (Manual) Lymphocytes % (Manual) PT INR Sodium Chloride BUN Ferritin AST Alkaline Phosphatase Lactate Dehydrogenase Troponin I High Sens 2504.1 H B-Natriuretic Peptide Total Protein Albumin Coronavirus (PCR) Assessment and Plan (1) COVID-19: Problem details: muti-organ involvement. Day#7 of her illness. Needs to be treated aggressively to avoid further organ damage Status: Acute Convalescent plasma today ID consult for the use of Remdesivir. N Engl J Med 2020; [id number] (2) Pulmonary embolism: Qualifiers: Acute cor pulmonale presence: without acute cor pulmonale Chronicity: acute Pulmonary embolism type: unspecified Qualified Code(s): I26.99 - Other pulmonary embolism without acute cor pulmonale Status: Acute Will require anticoagulation x 3 months (3) Acute respiratory failure: Qualifiers: Respiratory failure complication: hypoxia Qualified Code(s): J96.01 - Acute respiratory failure with hypoxia Status: Acute (4) Pneumonia: Qualifiers: Pneumonia type: due to unspecified organism Laterality: right Lung location: lower lobe of lung Qualified Code(s): J18.9 - Pneumonia, unspecified organism Status: Acute RLL consolidation suggestive of post obs PNA versus pulmonary infearct (5) Myocarditis: Qualifiers: Myocarditis type: infective Infective myocarditis organism: viral Chronicity: acute Qualified Code(s): I40.0 - Infective myocarditis Status: Acute (6) COPD (chronic obstructive pulmonary disease): Qualifiers: COPD type: chronic bronchitis Chronic bronchitis type: simple Qualified Code(s): J41.0 - Simple chronic bronchitis Status: Acute
--- NOTE | 2020-01-31 10:10 | PM.CNCAR ---
History of Present Illness History of Present Illness Date of Service: 01/31/20 Requesting physician: Bowen Donnelly Chief complaint: covid+,new pe and aflutter Narrative: Thank you for inviting us on consult on Cindi for elevated troponin new onset atrial flutter. She is a pleasant 79-year-old woman with prior history of oxygen requiring COPD, aortic valve replacement 6 7 years ago with no CAD at that time, no cardiac arrhythmias. Patient present hospital for failure to thrive and generally not feeling well with shortness of breath and fatigue related to diagnosis of COVID about a week ago. She was exposed to go with through her son. She finally decided to come to the hospital. On admission she was noted to have elevated troponin and new onset atrial flutter. Subsequent workup revealed presence of pulmonary embolism as well as bilateral patchy infiltrates consistent with COVID pneumonia. She has been seen by Pulmonary. Blood work as suggested elevated troponin with rising troponin consistent with NSTEMI. Cardiology consult was sought for further management plan. She denies any chest pain. She says she feels tired but overall feels better on oxygen therapy. She has been treated with glucocorticoids and plans for convalescent plasma. She is not having any fevers at this time. She denies any palpitations, lightheadedness, syncope. No clear symptoms of orthopnea, PND, leg edema. Review of Systems Constitutional: Constitutional: Denies body ache(s), Denies chills, Reports fatigue, Denies fever(s), Denies headache(s), Reports lethargy, Reports malaise and Reports weakness Eyes: Eyes: Reports no additional eye complaints ENT: Denies dizziness and Denies headache(s) Cardiovascular: Cardiovascular: Reports no additional cardiovascular complaints and Reports dyspnea Respiratory: Respiratory: Reports dyspnea Gastrointestinal: Gastrointestinal: Reports no additional gastrointestinal complaints Musculoskeletal: Musculoskeletal: Denies numbness and Denies tingling Neurologic: Reports system reviewed and no additional complaints, except as documented, Denies dizziness, Denies headache(s), Denies numbness, Denies tingling and Reports weakness Endocrine: Endocrine: Reports fatigue Hematologic/Lymphatic: Hematologic/Lymphatic: Reports no additional hematologic/lymphatic complaints Allergic/Immunologic: Allergic/Immunologic: Reports no additional allergic/immunologic complaints PMFSH Past Medical History Medical History Acute respiratory failure CHF (congestive heart failure) COPD (chronic obstructive pulmonary disease) Depression Diabetes mellitus Gout Heart valve problem HTN (hypertension) Myocarditis Obesity SABRINA on CPAP Pneumonia Functional capacity: independent ambulation Family History Family History Sister Lung cancer Mother Renal cancer Other Diabetes mellitus Surgical History Surgical History History of aortic valve replacement with bioprosthetic valve History of total right hip arthroplasty Hx of laparoscopic gastric banding Previous back surgery Social History Social History Household Members: Family Household Members Other:: lives with her and her son Housing: House Do you presently have visiting nurse or other home services: No Alcohol intake: never Smoking Status: Former smoker Use of substances other than those prescribed or required for medical reasons: No Have you been hit, kicked, punched, or otherwise hurt by someone within the past year? If so, by whom?: No Do you feel safe in your current relationship?: Yes Is there a partner from a previous relationship who is making you feel unsafe now?: No Are you made to feel afraid or neglected: No Advance Directives: No Advance Directives Information Provided: Yes Do you have thoughts of harming others: None Do you have a plan to hurt others: No Plan Recently lost weight without trying: No Meds Allergies Allergy/AdvReac Type Severity Reaction Status Date / Time No Known Allergies Allergy Unverified 11/17/19 14:34 [No Known Allergies*] Home Medications Medication Instructions Recorded Confirmed Type allopurinol 100 mg PO DAILY 01/30/20 01/30/20 History bupropion HCl 150 mg PO DAILY@1700 01/30/20 01/30/20 History bupropion HCl 300 mg PO DAILY 01/30/20 01/30/20 History diltiazem HCl [DILT-XR] 240 mg PO DAILY 01/30/20 01/30/20 History duloxetine 60 mg PO DAILY 01/30/20 01/30/20 History iojgsusqlgk-iubuzxcuf-afixggey 1 inh INHALATION DAILY 01/30/20 01/30/20 History [Trelegy Ellipta] furosemide 80 mg PO DAILY 01/30/20 01/30/20 History lisinopril 20 mg PO DAILY 01/30/20 01/30/20 History omeprazole 20 mg PO DAILY 01/30/20 01/30/20 History potassium chloride 10 meq PO DAILY 01/30/20 01/30/20 History rosuvastatin 20 mg PO DAILY 01/30/20 01/30/20 History Physical Exam Vital Signs: Vital Signs: Last Vital Signs Temp 97.1 F 01/31/20 07:36 Pulse 78 01/31/20 07:36 Resp 18 01/31/20 07:36 BP 125/60 01/31/20 07:36 Pulse Ox 98 01/31/20 07:36 Body Mass Index 33.8 Const: General: cooperative, comfortable, no acute distress, alert and awake Nutritional Appearance: obese Orientation/consciousness: patient oriented x3 Limitations: no limitations HENMT: Head: Yes normocephalic and Yes atraumatic Eyes: General: appearance normal, both eyes and all related structures Neck: Neck: Yes trachea midline, Yes supple and Yes no JVD Chest: Chest palpation & inspection: normal inspection of the chest and other (Well-healed sternotomy scar) Resp: Effort & Inspection: normal respiratory effort Auscultation: no crackles, no rales, no wheezes and diminished lung sounds Cardio: Rate: regular rate Rhythm: regular rhythm Heart sounds: S1 normal heart sound present, S2 normal heart sound present and Murmur heart sound present (Ejection systolic murmur) GI: Auscultation: normal bowel sounds Skin: General skin exam: no rashes or lesions noted Neuro: General: patient oriented x3 Psych: Appearance: grossly normal Results Labs and Meds Result diagrams: 01/31/20 05:50 01/31/20 05:50 Lab results: Laboratory Results - last 24 hr 01/30/20 01/30/20 01/30/20 12:30 12:30 14:24 WBC 9.1 RBC 4.02 L Hgb 12.0 Hct 36.1 L MCV 89.8 MCH 29.9 MCHC 33.2 RDW 13.3 Plt Count 415 H MPV 9.9 Immature Gran % (Auto) 1.4 H Neut % (Auto) 72.8 Lymph % (Auto) 14.5 L [place] % (Auto) 11.2 H Eos % (Auto) 0.0 Baso % (Auto) 0.1 Lymph # (Auto) 1.3 [place] # (Auto) 1.0 Eos # (Auto) 0.0 Baso # (Auto) 0.0 Abs Immat Gran (auto) 0.13 H Absolute Neuts (auto) 6.6 Absolute Nucleated RBC 0.000 Nucleated RBC % (auto) 0.0 Neutrophils % (Manual) Band Neutrophils % Lymphocytes % (Manual) Atypical Lymphs % (Man) Monocytes % (Manual) Metamyelocytes % Abs Neuts (Manual) Lymphocytes # (Manual) Atyp Lymphs # (Manual) Monocytes # (Manual) Metamyelocytes # Platelet Estimate Large Platelets Plt Morphology Comment RBC Morphology Hypochromasia Macrocytosis Smear Tech's Comments VERIFIED PT INR APTT Sodium Cancelled Cancelled Potassium Cancelled Cancelled Chloride Cancelled Cancelled Carbon Dioxide Cancelled Cancelled Anion Gap Cancelled Cancelled BUN Cancelled Cancelled Creatinine Cancelled Cancelled Estim Creat Clear Calc Cancelled Cancelled Estimated GFR Cancelled Cancelled Random Glucose Cancelled Cancelled Lactic Acid Calcium Cancelled Cancelled Magnesium Cancelled Cancelled Ferritin 388 H Total Bilirubin Cancelled 0.4 Direct Bilirubin Cancelled 0.2 AST Cancelled 34 H ALT Cancelled 15 Alkaline Phosphatase Cancelled 137 H Lactate Dehydrogenase 308 H Troponin I High Sens B-Natriuretic Peptide Total Protein Cancelled 5.8 L Albumin Cancelled 3.4 L Procalcitonin Urine Color Urine Appearance Urine pH Ur Specific [place] Urine Protein Urine Glucose (UA) Urine Ketones Urine Blood Urine Nitrite Ur Leukocyte Esterase Urine RBC Urine WBC Ur Squamous Epith Cells Urine Bacteria Coronavirus (PCR) COVID-19 PCR Influenza Type A (PCR) Influenza Type B (PCR) RSV RNA Qual (PCR) 01/30/20 01/30/20 01/30/20 14:24 14:24 14:24 WBC RBC Hgb Hct MCV MCH MCHC RDW Plt Count MPV Immature Gran % (Auto) Neut % (Auto) Lymph % (Auto) [place] % (Auto) Eos % (Auto) Baso % (Auto) Lymph # (Auto) [place] # (Auto) Eos # (Auto) Baso # (Auto) Abs Immat Gran (auto) Absolute Neuts (auto) Absolute Nucleated RBC Nucleated RBC % (auto) Neutrophils % (Manual) Band Neutrophils % Lymphocytes % (Manual) Atypical Lymphs % (Man) Monocytes % (Manual) Metamyelocytes % Abs Neuts (Manual) Lymphocytes # (Manual) Atyp Lymphs # (Manual) Monocytes # (Manual) Metamyelocytes # Platelet Estimate Large Platelets Plt Morphology Comment RBC Morphology Hypochromasia Macrocytosis Smear Tech's Comments PT INR APTT Sodium 131 L Potassium 3.8 Chloride 95 L Carbon Dioxide 23 Anion Gap 17 BUN 17 H Creatinine 0.82 Estim Creat Clear Calc 57.6 Estimated GFR > 60 Random Glucose 72 Lactic Acid Calcium 8.5 Magnesium 1.7 Ferritin Total Bilirubin 0.4 Direct Bilirubin 0.2 AST 34 H ALT 15 Alkaline Phosphatase 136 H Lactate Dehydrogenase Troponin I High Sens B-Natriuretic Peptide Total Protein 5.8 L Albumin 3.4 L Procalcitonin 0.28 Urine Color Urine Appearance Urine pH Ur Specific [place] Urine Protein Urine Glucose (UA) Urine Ketones Urine Blood Urine Nitrite Ur Leukocyte Esterase Urine RBC Urine WBC Ur Squamous Epith Cells Urine Bacteria Coronavirus (PCR) COVID-19 PCR Influenza Type A (PCR) Influenza Type B (PCR) RSV RNA Qual (PCR) 01/30/20 01/30/20 01/30/20 14:32 14:32 18:46 WBC RBC Hgb Hct MCV MCH MCHC RDW Plt Count MPV Immature Gran % (Auto) Neut % (Auto) Lymph % (Auto) [place] % (Auto) Eos % (Auto) Baso % (Auto) Lymph # (Auto) [place] # (Auto) Eos # (Auto) Baso # (Auto) Abs Immat Gran (auto) Absolute Neuts (auto) Absolute Nucleated RBC Nucleated RBC % (auto) Neutrophils % (Manual) Band Neutrophils % Lymphocytes % (Manual) Atypical Lymphs % (Man) Monocytes % (Manual) Metamyelocytes % Abs Neuts (Manual) Lymphocytes # (Manual) Atyp Lymphs # (Manual) Monocytes # (Manual) Metamyelocytes # Platelet Estimate Large Platelets Plt Morphology Comment RBC Morphology Hypochromasia Macrocytosis Smear Tech's Comments PT INR APTT Sodium Potassium Chloride Carbon Dioxide Anion Gap BUN Creatinine Estim Creat Clear Calc Estimated GFR Random Glucose Lactic Acid 0.9 Calcium Magnesium Ferritin Total Bilirubin Direct Bilirubin AST ALT Alkaline Phosphatase Lactate Dehydrogenase Troponin I High Sens 1190.3 H B-Natriuretic Peptide 198 H Total Protein Albumin Procalcitonin Urine Color YELLOW Urine Appearance CLEAR Urine pH 5.5 Ur Specific [place] <= 1.005 Urine Protein NEG Urine Glucose (UA) NEG Urine Ketones NEG Urine Blood TRACE Urine Nitrite NEG Ur Leukocyte Esterase NEG Urine RBC 0 Urine WBC 0 Ur Squamous Epith Cells 1+ Urine Bacteria 1+ Coronavirus (PCR) COVID-19 PCR Influenza Type A (PCR) Influenza Type B (PCR) RSV RNA Qual (PCR) 01/30/20 01/30/20 01/30/20 18:53 18:53 22:53 WBC RBC Hgb Hct MCV MCH MCHC RDW Plt Count MPV Immature Gran % (Auto) Neut % (Auto) Lymph % (Auto) [place] % (Auto) Eos % (Auto) Baso % (Auto) Lymph # (Auto) [place] # (Auto) Eos # (Auto) Baso # (Auto) Abs Immat Gran (auto) Absolute Neuts (auto) Absolute Nucleated RBC Nucleated RBC % (auto) Neutrophils % (Manual) Band Neutrophils % Lymphocytes % (Manual) Atypical Lymphs % (Man) Monocytes % (Manual) Metamyelocytes % Abs Neuts (Manual) Lymphocytes # (Manual) Atyp Lymphs # (Manual) Monocytes # (Manual) Metamyelocytes # Platelet Estimate Large Platelets Plt Morphology Comment RBC Morphology Hypochromasia Macrocytosis Smear Tech's Comments PT 13.1 H INR 1.1 APTT 29.6 Sodium Potassium Chloride Carbon Dioxide Anion Gap BUN Creatinine Estim Creat Clear Calc Estimated GFR Random Glucose Lactic Acid Calcium Magnesium Ferritin Total Bilirubin Direct Bilirubin AST ALT Alkaline Phosphatase Lactate Dehydrogenase Troponin I High Sens 1751.5 H 2052.7 H B-Natriuretic Peptide Total Protein Albumin Procalcitonin Urine Color Urine Appearance Urine pH Ur Specific [place] Urine Protein Urine Glucose (UA) Urine Ketones Urine Blood Urine Nitrite Ur Leukocyte Esterase Urine RBC Urine WBC Ur Squamous Epith Cells Urine Bacteria Coronavirus (PCR) COVID-19 PCR Influenza Type A (PCR) Influenza Type B (PCR) RSV RNA Qual (PCR) 01/30/20 01/30/20 01/30/20 22:53 22:53 23:09 WBC 10.1 RBC 3.96 L Hgb 11.9 L Hct 36.2 L MCV 91.4 MCH 30.1 MCHC 32.9 RDW 13.4 Plt Count 457 H MPV 10.0 Immature Gran % (Auto) Neut % (Auto) Lymph % (Auto) [place] % (Auto) Eos % (Auto) Baso % (Auto) Lymph # (Auto) [place] # (Auto) Eos # (Auto) Baso # (Auto) Abs Immat Gran (auto) Absolute Neuts (auto) Absolute Nucleated RBC 0.000 Nucleated RBC % (auto) 0.0 Neutrophils % (Manual) Band Neutrophils % Lymphocytes % (Manual) Atypical Lymphs % (Man) Monocytes % (Manual) Metamyelocytes % Abs Neuts (Manual) Lymphocytes # (Manual) Atyp Lymphs # (Manual) Monocytes # (Manual) Metamyelocytes # Platelet Estimate Large Platelets Plt Morphology Comment RBC Morphology Hypochromasia Macrocytosis Smear Tech's Comments PT 13.8 H INR 1.2 H APTT 37.0 D Sodium Potassium Chloride Carbon Dioxide Anion Gap BUN Creatinine Estim Creat Clear Calc Estimated GFR Random Glucose Lactic Acid Calcium Magnesium Ferritin Total Bilirubin Direct Bilirubin AST ALT Alkaline Phosphatase Lactate Dehydrogenase Troponin I High Sens B-Natriuretic Peptide Total Protein Albumin Procalcitonin Urine Color Urine Appearance Urine pH Ur Specific [place] Urine Protein Urine Glucose (UA) Urine Ketones Urine Blood Urine Nitrite Ur Leukocyte Esterase Urine RBC Urine WBC Ur Squamous Epith Cells Urine Bacteria Coronavirus (PCR) POSITIVE A COVID-19 PCR Influenza Type A (PCR) NEGATIVE Influenza Type B (PCR) NEGATIVE RSV RNA Qual (PCR) NEGATIVE 01/30/20 01/31/20 01/31/20 23:09 05:50 05:50 WBC 9.8 RBC 3.79 L Hgb 11.2 L Hct 34.5 L MCV 91.0 MCH 29.6 MCHC 32.5 RDW 13.6 Plt Count 471 H MPV 10.1 Immature Gran % (Auto) Cancelled Neut % (Auto) Cancelled Lymph % (Auto) Cancelled [place] % (Auto) Cancelled Eos % (Auto) Cancelled Baso % (Auto) Cancelled Lymph # (Auto) Cancelled [place] # (Auto) Cancelled Eos # (Auto) Cancelled Baso # (Auto) Cancelled Abs Immat Gran (auto) Cancelled Absolute Neuts (auto) Cancelled Absolute Nucleated RBC 0.000 Nucleated RBC % (auto) 0.0 Neutrophils % (Manual) 76 H Band Neutrophils % 3 Lymphocytes % (Manual) 11 L Atypical Lymphs % (Man) 1 Monocytes % (Manual) 8 Metamyelocytes % 1 Abs Neuts (Manual) 7.7 Lymphocytes # (Manual) 1.1 Atyp Lymphs # (Manual) 0.1 Monocytes # (Manual) 0.8 Metamyelocytes # 0.1 Platelet Estimate INCREASED Large Platelets PRESENT Plt Morphology Comment NOTED RBC Morphology NOTED Hypochromasia 1+ Macrocytosis 1+ Smear Tech's Comments PT INR APTT Sodium 134 L Potassium 4.2 Chloride 98 Carbon Dioxide 27 Anion Gap 13 BUN 12 Creatinine 0.78 Estim Creat Clear Calc 60.6 Estimated GFR > 60 Random Glucose 60 Lactic Acid Calcium 8.5 Magnesium Ferritin Total Bilirubin Direct Bilirubin AST ALT Alkaline Phosphatase Lactate Dehydrogenase Troponin I High Sens B-Natriuretic Peptide Total Protein Albumin Procalcitonin Urine Color Urine Appearance Urine pH Ur Specific [place] Urine Protein Urine Glucose (UA) Urine Ketones Urine Blood Urine Nitrite Ur Leukocyte Esterase Urine RBC Urine WBC Ur Squamous Epith Cells Urine Bacteria Coronavirus (PCR) Cancelled COVID-19 PCR Cancelled Influenza Type A (PCR) Cancelled Influenza Type B (PCR) Cancelled RSV RNA Qual (PCR) Cancelled 01/31/20 05:50 WBC RBC Hgb Hct MCV MCH MCHC RDW Plt Count MPV Immature Gran % (Auto) Neut % (Auto) Lymph % (Auto) [place] % (Auto) Eos % (Auto) Baso % (Auto) Lymph # (Auto) [place] # (Auto) Eos # (Auto) Baso # (Auto) Abs Immat Gran (auto) Absolute Neuts (auto) Absolute Nucleated RBC Nucleated RBC % (auto) Neutrophils % (Manual) Band Neutrophils % Lymphocytes % (Manual) Atypical Lymphs % (Man) Monocytes % (Manual) Metamyelocytes % Abs Neuts (Manual) Lymphocytes # (Manual) Atyp Lymphs # (Manual) Monocytes # (Manual) Metamyelocytes # Platelet Estimate Large Platelets Plt Morphology Comment RBC Morphology Hypochromasia Macrocytosis Smear Tech's Comments PT INR APTT Sodium Potassium Chloride Carbon Dioxide Anion Gap BUN Creatinine Estim Creat Clear Calc Estimated GFR Random Glucose Lactic Acid Calcium Magnesium Ferritin Total Bilirubin Direct Bilirubin AST ALT Alkaline Phosphatase Lactate Dehydrogenase Troponin I High Sens 2504.1 H B-Natriuretic Peptide Total Protein Albumin Procalcitonin Urine Color Urine Appearance Urine pH Ur Specific [place] Urine Protein Urine Glucose (UA) Urine Ketones Urine Blood Urine Nitrite Ur Leukocyte Esterase Urine RBC Urine WBC Ur Squamous Epith Cells Urine Bacteria Coronavirus (PCR) COVID-19 PCR Influenza Type A (PCR) Influenza Type B (PCR) RSV RNA Qual (PCR) EKG shows atrial flutter with variable conduction with PVCs with nonspecific ST T wave changes Assessment and Plan (1) NSTEMI (non-ST elevated myocardial infarction): Status: Acute Elevated troponins consistent with non ST elevation myocardial infarction in setting of COVID infection. Differential diagnosis include coronary thrombosis given that she also has pulmonary embolism. Differential diagnosis also includes possibility of myocarditis. Less likely that this is related to RV strain related to pulmonary embolism and/or related to sepsis. She is already on treatment with full anticoagulation with Lovenox. Continue the same. Heart rate is currently well controlled. No need to add metoprolol therapy. No a need to add additional other anti ischemic therapy. Continue supportive care. Will eventually need to transition to oral anticoagulation therapy for her hypercoagulability. Continue statin therapy. Echocardiogram should be requested to evaluate for LV systolic and diastolic function to evaluate for regional wall motion abnormality. (2) Pulmonary embolism: Qualifiers: Acute cor pulmonale presence: without acute cor pulmonale Chronicity: acute Pulmonary embolism type: unspecified Qualified Code(s): I26.99 - Other pulmonary embolism without acute cor pulmonale Status: Acute Treatment as above. Will need oral anticoagulation therapy for at least 6 months.. (3) COVID-19: Problem details: muti-organ involvement. Day#7 of her illness. Needs to be treated aggressively to avoid further organ damage Status: Acute (4) Atrial flutter: Qualifiers: Atrial flutter type: unspecified Qualified Code(s): I48.92 - Unspecified atrial flutter Status: Acute Atrial flutter with adequate rate control without any rate control therapy. Already on oral anticoagulation. Currently no change in therapy, she is hemodynamically stable and no evidence of cardiac decompensation. Long-term anticoagulation will be decided based on presence of persistent atrial flutter eventually. She can follow with her own client services specialist as outpatient. Will sign of the case at current time. Please feel free to call us if there any other issues. Thank you for allowing us to partake in her care
[2020-01-31] MEDS: Doxycycline Hyclate 100 MG in 0.9 % Sodium Chloride 250 ML 166.67 MG IV ×2 (10:28→22:27)
[2020-01-31 11:13] VITALS: BP 133/63; PULSE 84; RESP 18; TEMP 36.5; O2SAT 100
--- NOTE | 2020-01-31 11:18 | HO.PM.IMPN ---
Subjective Subjective Date of Service: 01/31/20 Interval History: Seen in f/u fpr covid, pe, afib. Hemodynamically stable and no respiratory distress, no fever ROS: no chest pain, no sob, no fever Physical Exam Vital Signs: Vital Signs: Last Vital Signs Temp 97.7 F 01/31/20 11:13 Pulse 84 01/31/20 11:13 Resp 18 01/31/20 11:13 BP 133/63 01/31/20 11:13 Pulse Ox 100 01/31/20 11:13 Body Mass Index 33.8 General: AO X 3, no acute distress Resp: normal respiratory effort CVS: RRR GI: no pain, Skin: No rash Neuro: motor grossly intact Psych: appropriate affect Objective Data Current Medications Generic Name Dose Route Start Last Admin Trade Name Freq PRN Reason Stop Dose Admin Acetaminophen 650 mg 01/30/20 22:19 Acetaminophen 325 Mg Tablet PO Q6H PRN Pain, Mild (Pain Scale 1-3) Allopurinol 100 mg 01/31/20 09:00 01/31/20 08:26 Allopurinol 100 Mg Tablet PO 100 mg DAILY ERICH Administration Atorvastatin Calcium 80 mg 01/31/20 09:00 01/31/20 08:25 Atorvastatin Calcium 80 Mg Tablet PO 80 mg DAILY ERICH Administration Bupropion HCl 150 mg 01/31/20 17:00 Bupropion Hcl Xl 150 Mg Tab.Er.24h PO DAILY@1700 ERICH Bupropion HCl 300 mg 01/31/20 09:00 01/31/20 08:26 Bupropion Hcl Xl 300 Mg Tab.Er.24h PO 300 mg DAILY ERICH Administration Dexamethasone 6 mg 01/31/20 09:00 01/31/20 08:26 Dexamethasone 6 Mg Tablet PO 6 mg DAILY ERICH Administration Duloxetine HCl 60 mg 01/31/20 09:00 01/31/20 08:25 Duloxetine Hcl 60 Mg Capsule.Dr PO 60 mg DAILY ERICH Administration Enoxaparin Sodium 80 mg 01/31/20 08:00 01/31/20 08:26 Enoxaparin Sodium 80 Mg/0.8 Ml Syringe SUBCUT 80 mg Q12H ERICH Administration Doxycycline Hyclate 100 mg/ 250 mls @ 166.67 mls/hr 01/31/20 10:00 01/31/20 10:28 Sodium Chloride IV 166.67 mls/hr Q12H ERICH Administration Ceftriaxone Sodium 1 gm/ 50 mls @ 100 mls/hr 01/31/20 14:00 Sodium Chloride IV Q24H ERICH Omeprazole 20 mg 01/31/20 06:30 01/31/20 06:23 Omeprazole 20 Mg Capsule.Dr DIXON 20 mg DAILY@0630 ERICH Administration Ondansetron HCl 4 mg 01/30/20 22:19 Ondansetron Hcl 4 Mg/2 Ml Vial IVPUSH Q8H PRN Nausea and Vomiting Pharmacy Consult 1 each 01/30/20 17:27 Consult Rx Perform Med Rec MISCELLANE ONCE PRN Consult order Sodium Chloride 3 ml 01/31/20 00:00 01/31/20 08:26 0.9 % Sodium Chloride Flush 3 Ml Syringe IVFLUSH 3 ml QSHIFT ERICH Administration Labs CBC & Chem 7: 01/31/20 05:50 01/31/20 05:50 Assessment and Plan (1) NSTEMI (non-ST elevated myocardial infarction): Status: Acute (2) COVID-19: Problem details: muti-organ involvement. Day#7 of her illness. Needs to be treated aggressively to avoid further organ damage Status: Acute (3) Pulmonary embolism: Status: Acute (4) Atrial flutter: Status: Acute (5) Myocarditis: Status: Acute (6) Pneumonia: Status: Acute Assessment and Plan: 79/F COPD on home O2, and recent diagosis of covid 19 here with SOB and found to have NSTEMI, PE and new AFIB COVID-19 pneumonia. No increase in WBC, oxygenating fine. I don't think Abx indicated at this time and will check with ID about stopping them. NSTEMI. Conservative management as guided by Dr. Ross --see his fan of 01/30 Pulmonary embolus. Possibly related to COVID-19. Will treat with therapeutic Lovenox, echocardiogram today and ultimately will transition to oral NOAC New atrial flutter. Rate is controlled, and anticoagulation as above Chronic respiratory failure related to COPD on home oxygen. No exacerbation. albuterol as needed. Depression. Continue home medications. Hypertension. Hold home medications to episodes of hypotension. GERD. Continue PPI. Obesity. BMI 33.8. May contribute to other comorbidities. Hyperlipidemia. Continue statin DVT prophylaxis with therapeutic Lovenox .
--- NOTE | 2020-01-31 12:26 | MHC.CM.PN ---
IMM 01/31/20 Female 79 dx covid+ aflutter. She lives with family. She is O2 dependent 2.5L via [place]. [facility] is the provider. She has had [facility] for homecare in the past. If home care required she would like [facility] again. She is independent w equipment. DP home w [facility] family transport.
[2020-01-31] MEDS: cefTRIAXone sodium 1 GM in 0.9 % Sodium Chloride 50 ML IV (13:22)
[2020-01-31 15:03] VITALS: BMI 33.8
[2020-01-31 15:18] VITALS: BP 106/58; PULSE 80; RESP 19; TEMP 35.9; O2SAT 95
--- NOTE | 2020-01-31 16:20 | W.PM.IDCN ---
History of Present Illness Data of Consult Service Date: 01/31/20 Requesting physician: Jama Beckwith Primary Care Provider: MD OSCAR Sheets Reason for consult: shortness of breath She has shortness of breath for a week and dry cough Her son had COVID She has tested positive She has no purulent sputum or lobar pneumonia Review of Systems Constitutional: Constitutional: Denies headache(s) and Reports weakness ENT: Denies dizziness and Denies headache(s) Musculoskeletal: Musculoskeletal: Denies numbness and Denies tingling Neurologic: Reports system reviewed and no additional complaints, except as documented, Denies Abnormal speech present, Reports confusion, Denies dizziness, Denies headache(s), Denies numbness, Denies tingling and Reports weakness Psychiatric: Psychiatric: Reports confusion PMFSH Past Medical History Medical History Acute respiratory failure CHF (congestive heart failure) COPD (chronic obstructive pulmonary disease) Depression Diabetes mellitus Gout Heart valve problem HTN (hypertension) Myocarditis Obesity SABRINA on CPAP Pneumonia Functional capacity: independent ambulation Family History Family History Sister Lung cancer Mother Renal cancer Other Diabetes mellitus Surgical History Surgical History History of aortic valve replacement with bioprosthetic valve History of total right hip arthroplasty Hx of laparoscopic gastric banding Previous back surgery Social History Social History Household Members: Family Housing: House Alcohol intake: never Smoking Status: Former smoker service: No Current occupational status: retired [employer] Allergies Allergy/AdvReac Type Severity Reaction Status Date / Time No Known Allergies Allergy Unverified 11/17/19 14:34 [No Known Allergies*] Home Medications Medication Instructions Recorded Confirmed Type Trelegy Ellipta 1 inh INHALATION DAILY 01/30/20 01/30/20 History allopurinol 100 mg PO DAILY 01/30/20 01/30/20 History bupropion HCl 150 mg PO DAILY@1700 01/30/20 01/30/20 History bupropion HCl 300 mg PO DAILY 01/30/20 01/30/20 History diltiazem HCl [DILT-XR] 240 mg PO DAILY 01/30/20 01/30/20 History duloxetine 60 mg PO DAILY 01/30/20 01/30/20 History furosemide 80 mg PO DAILY 01/30/20 01/30/20 History omeprazole 20 mg PO DAILY 01/30/20 01/30/20 History potassium chloride 10 meq PO DAILY 01/30/20 01/30/20 History rosuvastatin 20 mg PO DAILY 01/30/20 01/30/20 History Physical Exam Vital Signs: Vital Signs: Last Vital Signs Temp 96.7 F L 01/31/20 15:18 Pulse 80 01/31/20 15:18 Resp 19 01/31/20 15:18 BP 106/58 L 01/31/20 15:18 Pulse Ox 95 01/31/20 15:18 Body Mass Index 33.8 Const: General: confusion Orientation/consciousness: confusion HENMT: Head: Yes normal to inspection Resp: Effort & Inspection: normal respiratory effort Cardio: Rate: regular rate Rhythm: abnormal rhythm GI: Palpation (GI): nontender Skin: General skin exam: no rashes or lesions noted Neuro: General: confusion Speech: No Abnormal speech present Extrem: General: Yes normal to inspection Assessment and Plan (1) COVID-19: Problem details: She has COVID She is on oxygen as she is at home but with slightly elevated needs She has new PE and is on anticoagulation She has atrial flutter Prognosis guarded Would recommend Dexamethasone 6 mg IV daily Remdesivir 200 mg and then 100 mg daily, clinical benefit modest at best and doesnt impact mortality or progression to need for mechanical ventilation Convalescent plasma is consideration (2) Myocarditis: Qualifiers: Chronicity: acute 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 Qualified Code(s): I40.0 - Infective myocarditis (3) COPD (chronic obstructive pulmonary disease): Qualifiers: COPD type: chronic bronchitis Chronic bronchitis type: simple Qualified Code(s): J41.0 - Simple chronic bronchitis (4) Pulmonary embolism: Qualifiers: Acute cor pulmonale presence: without acute cor pulmonale Chronicity: acute Pulmonary embolism type: unspecified Qualified Code(s): I26.99 - Other pulmonary embolism without acute cor pulmonale Status: Acute Results Labs CBC & Chem 7: 02/01/20 05:44 02/01/20 05:44 Labs: Short CBC 01/30/20 01/31/20 Range/Units 22:53 05:50 WBC 10.1 9.8 (4.8-10.8) X10*3/uL Hgb 11.9 L 11.2 L (12.0-16.0) g/dl Hct 36.2 L 34.5 L (37-47) % Plt Count 457 H 471 H (160-400) X10*3/uL BMP 01/30/20 01/31/20 14:24 05:50 Sodium 131 L 134 L Potassium 3.8 4.2 Chloride 95 L 98 Carbon Dioxide 23 27 BUN 17 H 12 Creatinine 0.82 0.78 Calcium 8.5 8.5 Urine 01/30/20 Range/Units 18:46 Urine Color YELLOW Urine Appearance CLEAR Urine pH 5.5 (5.0-8.0) Ur Specific [place] <= 1.005 (1.005-1.025) Urine Protein NEG (NEG-TRACE) MG/DL Urine Glucose (UA) NEG (NEG) MG/DL
[2020-01-31] MEDS: buPROPion HCl XL 150 MG TAB.ER.24H PO (16:38)
--- NOTE | 2020-01-31 17:00 | CA_ITS ---
Transthoracic Echocardiogram Patient (Last, First, Middle): Cindi Katz, Gender: Female Date of : 1940 Age: 79 Procedure Date: 01/31/2020 Procedure Type: Transthoracic Echocardiogram Location[place] [facility] [place] Height: 157.48 cm Weight: 83.92 kg BSA: 1.85 m2 Heart Rate: bpm Pricing/Signage Team Member: ELSA Referring MD: Toya Brown NP Center Machine Set Up Operator: Shawn Ross MD Symptoms: PE, NEW AFLUTTER Study Quality: Technically Difficult ECG Rhythm: Undetermined Conclusions: - 1. Low normal LV systolic function 2. At least moderate biatrial enlargement 3. Moderately dilated right ventricle 4. Bioprosthetic mitral valve present with mean gradient of 5 mm Hg 5. Moderately elevated right ventricular systolic pressure 6. No gross pericardial effusion Findings Left Ventricle Normal left ventricular cavity size. There is normal left ventricular wall thickness. The left ventricular systolic function is low normal. The visually estimated ejection fraction is between 50-55%. Regional wall motion abnormalities can not be excluded due to suboptimal endocardial definition. There is paradoxical septal motion consistent with a left bundle branch block. Diastolic function is indeterminate on the basis of available data. Right Ventricle Moderately increased right ventricular cavity size. Atria The left atrium is moderately dilated. There is no evidence of interatrial shunt. The right atrium is moderately dilated. Aortic Valve The aortic valve was not well visualized. There is no aortic valve stenosis. There is no aortic valve regurgitation. Mitral Valve A bioprosthetic mitral valve is present. The mitral valve was not well visualized. there appears to be a bioprosthetic aortic valve present in the mitral position with no abnormal rocking motion. The valve is well seated. There is no significant mitral regurgitation noted. Mean gradient across the valve is about 5 mm of mercury. Pulmonic Valve The pulmonic valve was not well visualized. Tricuspid Valve Likely normal tricuspid valve structure and function. There is moderate tricuspid valve regurgitation. Normal right atrial pressure. Moderate pulmonary hypertension is present. Great Vessels All visible segments of the aorta are normal in size. The pulmonary artery was not well visualized. Venous The inferior vena cava is normal in size and collapses greater than 50% with inspiration. Pericardium/Pleural There is no evidence of pericardial effusion. Measurements 2D Linear Measurements IVSd: 1.07 0.6-0.9/0.6-1.0 cm LVIDd: 4.18 3.9-5.3/4.2-5.9 cm LVIDd Index: 2.26 2.4-3.2/2.2-3.1 cm/m2 LVIDs: 2.32 2.0-3.6 cm LVPWd: 1.07 0.7-1.1 cm Ao Root: 2.50 2.1-3.5 cm LA Diam: 3.50 2.7-3.8/3.0-4.0 cm LAIDs Index: 1.89 1.5-2.3 cm/m2 LV Mass: 186.58 67-162/88-224 g LV Mass Index: 100.85 43-95/49-115 g/m2 LVOT Diam: 2.00 3.0+(-)1.3 cm Mitral Valve MV VTI: 0.48 MV Pk Irto: 2.03 MV Mn Rito: 1.05 MV Pk Grad: 16.00 MV Mn Grad: 6.00 MV Pk E: 1.67 MV PK A: 1.21 MV Decel Time: 134.00 E/A: 1.40 E'Lateral: 17.10 E'Medial: 7.45 E/E' Med: 22.40 E/E' Lat: 9.80 PHT: 39.00 MVA PHT: 5.64 MVA Continuity: 1.33 Decel [place]: 12.51 Aortic Valve AoV Pk Rito: 1.50 AoV Mn Rito: 0.94 AoV VTI: 0.26 AoV Pk Grad: 9.00 Aov Mn Grad: 4.00 ALONDRA Cont.VTI: 2.43 LVOT LVOT Pk Rito: 0.76 LVOT Mn Rito: 0.54 LVOT VTI: 0.20 LVOT Pk Grad: 2.00 LVOT Mn Grad: 1.00 LVOT Diam: 2.00 LVOT Area: 3.14 Diastolic Function MV Pk E: 1.67 MV Pk A: 1.21 E/A: 1.40 E'Medial: 7.45 E/E' Med: 22.40 E' Laterial: 17.10 E/E' Lat: 9.80 Tricuspid Valve TR Pk Rito: 3.41 TR Pk Grad: 47.00 RA Press: 8.00 RVSP: 55.00 Great Vessels Aorta Ao Root-2D: 2.50 2.0-3.7 cm Pulmonary Valve PV Pk Rito: 1.05 Peak PV Grad: 4.00 Updated in Other Vendor System with Status of Final Shawn Ross MD electronically signed on 01/31/2020 2:38:31 PM with status of Final
[2020-01-31 18:08] LABS: Hemoglobin 12.4 g/dl (12.0-16.0); Imm Gran Abs Auto 0.14 X10*3/uL (0.00-0.03); Imm Gran Pct Auto 1.4 % (0.0-0.4); MANUAL DIFF FLAG SCAN; Mean Corpuscular HGB Conc 33.2 g/dl (31.0-35.0); PLT CLUMP 1; SCAN SMEAR FLAG 1
[2020-01-31 18:10] LABS: Basophils Percent Auto 0.2 % (0-2); Hematocrit 37.4 % (37-47); Lymphocytes Absolute Auto 1.3 X10*3/uL (1.2-4.9); Lymphocytes Percent Auto 13.3 % (20-40); Mean Corpuscular Volume 90.6 fL (80-98); Mean Platelet Volume 10.9 fL (9.4-12.3); Monocytes Absolute Auto 0.4 X10*3/uL (0.1-1.2); Monocytes Percent Auto 3.9 % (2-11); Neutrophils Absolute Auto 7.9 X10*3/uL (2.0-8.3); Neutrophils Percent Auto 81.2 % (45-73); Platelet Count 487 X10*3/uL (160-400); Red Blood Count 4.13 X10*6/uL (4.20-5.50); Red Cell Distribution Width 13.5 % (11.0-16.0); White Blood Count 9.8 X10*3/uL (4.8-10.8)
[2020-01-31 18:20] LABS: INTERNATIONAL NORM RATIO 1.1 (0.9-1.1)
[2020-01-31 18:23] LABS: Partial Thromboplastin Time 34.8 SEC (24.1-38.0)
[2020-01-31 18:29] LABS: Alanine Aminotransferase 21 U/L (0-31); Albumin Level 3.5 g/dL (3.5-5.0); Alkaline Phosphatase 163 U/L (39-117); Anion Gap 19 (12-20); Aspartate Amino Transferase 45 U/L (5-31); Bilirubin Direct 0.2 mg/dL (0.0-0.5); Bilirubin Total 0.4 mg/dL (0.0-1.0); Blood Urea Nitrogen 12 mg/dL (9-16); Carbon Dioxide 22 mmol/L (22-29); Chloride 98 mmol/L (96-108); Estimated Glomerular Filt Rate > 60; Potassium 4.6 mmol/l (3.3-5.1); Sodium 134 mmol/L (135-145); Total Protein 6.2 g/dL (6.5-8.0)
[2020-01-31 18:44] LABS: SLIDE REVIEW VERIFIED
[2020-01-31 19:18] VITALS: BP 122/57; PULSE 72; RESP 19; TEMP 36; O2SAT 99
[2020-01-31] MEDS: Remdesivir 200 MG in 0.9 % Sodium Chloride 210 ML 125 MG IV (20:01)
[2020-01-31 21:57] LABS: INTERNATIONAL NORM RATIO 1.1 (0.9-1.1); Prothrombin Time 13.6 SEC (10.8-13.0)
[2020-02-01] VITALS (9 sets, daily range): BP systolic 116–160; BP diastolic 56–70; PULSE 66–86; RESP 16–20; TEMP 36.1–36.7; O2SAT 95–100
[2020-02-01] MEDS: 0.9 % Sodium Chloride Flush 3 ML SYRINGE IVFLUSH ×4 (00:35→23:54)
[2020-02-01] MEDS: Omeprazole 20 MG CAPSULE.DR PO (06:11)
[2020-02-01 06:49] LABS: Basophils Percent Auto 0.1 % (0-2); Hematocrit 33.4 % (37-47); Hemoglobin 10.8 g/dl (12.0-16.0); Imm Gran Abs Auto 0.18 X10*3/uL (0.00-0.03); Imm Gran Pct Auto 1.7 % (0.0-0.4); Lymphocytes Absolute Auto 1.6 X10*3/uL (1.2-4.9); Lymphocytes Percent Auto 15.7 % (20-40); MANUAL DIFF FLAG SCAN; Mean Corpuscular HGB Conc 32.3 g/dl (31.0-35.0); Mean Corpuscular Hemoglobin 29.4 pg (27.0-33.0); Mean Platelet Volume 10.2 fL (9.4-12.3); Neutrophils Absolute Auto 7.5 X10*3/uL (2.0-8.3); Neutrophils Percent Auto 72.5 % (45-73); Platelet Count 510 X10*3/uL (160-400); Red Blood Count 3.67 X10*6/uL (4.20-5.50); Red Cell Distribution Width 13.6 % (11.0-16.0); SCAN SMEAR FLAG 1; White Blood Count 10.4 X10*3/uL (4.8-10.8)
[2020-02-01 06:57] LABS: INTERNATIONAL NORM RATIO 1.1 (0.9-1.1); Prothrombin Time 12.5 SEC (10.8-13.0)
[2020-02-01 06:59] LABS: Partial Thromboplastin Time 34.8 SEC (24.1-38.0)
[2020-02-01 07:17] LABS: Alanine Aminotransferase 18 U/L (0-31); Albumin Level 3.1 g/dL (3.5-5.0); Alkaline Phosphatase 136 U/L (39-117); Anion Gap 15 (12-20); Aspartate Amino Transferase 37 U/L (5-31); Bilirubin Direct 0.2 mg/dL (0.0-0.5); Bilirubin Total 0.3 mg/dL (0.0-1.0); Blood Urea Nitrogen 12 mg/dL (9-16); Carbon Dioxide 27 mmol/L (22-29); Chloride 100 mmol/L (96-108); Creatinine Clr Calc Pharmacy 59.1; Estimated Glomerular Filt Rate > 60; Potassium 4.2 mmol/l (3.3-5.1); Sodium 138 mmol/L (135-145); Total Protein 5.7 g/dL (6.5-8.0)
[2020-02-01] MEDS: DULoxetine HCl 60 MG CAPSULE.DR PO (07:59)
[2020-02-01] MEDS: Enoxaparin Sodium 80 MG/0.8 ML SYRINGE SUBCUT ×2 (07:59→19:57)
[2020-02-01] MEDS: allopurinoL 100 MG TABLET PO (07:59)
[2020-02-01] MEDS: dexAMETHasone 6 MG TABLET PO (07:59)
[2020-02-01] MEDS: Atorvastatin Calcium 80 MG TABLET PO (07:59)
[2020-02-01] MEDS: buPROPion HCl XL 300 MG TAB.ER.24H PO (07:59)
[2020-02-01 08:04] LABS: SLIDE REVIEW VERIFIED
[2020-02-01] MEDS: Doxycycline Hyclate 100 MG in 0.9 % Sodium Chloride 250 ML 166.67 MG IV ×2 (10:39→22:24)
--- NOTE | 2020-02-01 13:54 | P.PNIM_ITS ---
Subjective Subjective Date of Service: 02/02/20 Interval History: Seen in f/u fpr covid, pe, afib. Hemodynamically stable and no respiratory distress, no fever ROS: no chest pain, no sob, no fever Physical Exam Vital Signs: Vital Signs: Last Vital Signs Temp 98.1 F 02/01/20 12:00 Pulse 77 02/01/20 12:00 Resp 20 02/01/20 12:00 BP 132/62 02/01/20 12:00 Pulse Ox 97 02/01/20 12:00 Body Mass Index 33.8 General: AO X 3, no acute distress Resp: CTA bilateral CVS: S1,S2,RRR GI: +BS, NT, no distention Skin: No rash Neuro: motor grossly intact Psych: appropriate affect Objective Data Current Medications Generic Name Dose Route Start Last Admin Trade Name Freq PRN Reason Stop Dose Admin Acetaminophen 650 mg 01/30/20 22:19 Acetaminophen 325 Mg Tablet PO Q6H PRN Pain, Mild (Pain Scale 1-3) Allopurinol 100 mg 01/31/20 09:00 02/01/20 07:59 Allopurinol 100 Mg Tablet PO 100 mg DAILY ERICH Administration Atorvastatin Calcium 80 mg 01/31/20 09:00 02/01/20 07:59 Atorvastatin Calcium 80 Mg Tablet PO 80 mg DAILY ERICH Administration Bupropion HCl 150 mg 01/31/20 17:00 01/31/20 16:38 Bupropion Hcl Xl 150 Mg Tab.Er.24h PO 150 mg DAILY@1700 ERICH Administration Bupropion HCl 300 mg 01/31/20 09:00 02/01/20 07:59 Bupropion Hcl Xl 300 Mg Tab.Er.24h PO 300 mg DAILY ERICH Administration Dexamethasone 6 mg 01/31/20 09:00 02/01/20 07:59 Dexamethasone 6 Mg Tablet PO 6 mg DAILY ERICH Administration Duloxetine HCl 60 mg 01/31/20 09:00 02/01/20 07:59 Duloxetine Hcl 60 Mg Capsule.Dr PO 60 mg DAILY ERICH Administration Enoxaparin Sodium 80 mg 01/31/20 08:00 02/01/20 07:59 Enoxaparin Sodium 80 Mg/0.8 Ml Syringe SUBCUT 80 mg Q12H ERICH Administration Doxycycline Hyclate 100 mg/ 250 mls @ 166.67 mls/hr 01/31/20 10:00 02/01/20 12:49 Sodium Chloride IV Infused Q12H [facility] Infusion Remdesivir 100 mg/ Sodium 250 mls @ 125 mls/hr 02/01/20 20:00 Chloride IV 02/04/20 21:59 Q24H ERICH Omeprazole 20 mg 01/31/20 06:30 02/01/20 06:11 Omeprazole 20 Mg Capsule. PO 20 mg DAILY@0630 [facility] Administration Ondansetron HCl 4 mg 01/30/20 22:19 Ondansetron Hcl 4 Mg/2 Ml Vial IVPUSH Q8H PRN Nausea and Vomiting Pharmacy Consult 1 each 01/30/20 17:27 Consult Rx Perform Med Rec MISCELLANE ONCE PRN Consult order Sodium Chloride 3 ml 01/31/20 00:00 02/01/20 08:00 0.9 % Sodium Chloride Flush 3 Ml Syringe IVFLUSH 3 ml QSHIFT [facility] Administration Labs CBC & Chem 7: 02/01/20 05:44 02/01/20 05:44 Microbiology Microbiology Results: Microbiology 01/30/20 14:32 Blood - Venous Blood Culture - Preliminary No growth after 24 hours. 01/30/20 14:24 Blood - Venous Blood Culture - Preliminary No growth after 24 hours. Assessment and Plan (1) NSTEMI (non-ST elevated myocardial infarction): Status: Acute (2) COVID-19: Problem details: She has COVID She is on oxygen as she is at home but with slightly elevated needs She has new PE and is on anticoagulation She has atrial flutter Prognosis guarded Status: Acute (3) Pulmonary embolism: Status: Acute (4) Atrial flutter: Status: Acute (5) Myocarditis: Status: Acute (6) Pneumonia: Status: Acute Assessment and Plan: 79/F COPD on home O2, and recent diagosis of covid 19 here with SOB and found to have NSTEMI, PE and new AFIB COVID-19 pneumonia. No increase in WBC, oxygenating fine. -continue Doxy -ID recommending stopping Remdesevir as no clear indication NSTEMI. Conservative management as guided by Dr. Ross --see his fan of 01/30 Pulmonary embolus. Possibly related to COVID-19. Will treat with therapeutic Lovenox, echocardiogram today and ultimately will transition to oral NOAC SABRINA--[facility]AP at [facility] New atrial flutter. Rate is controlled, and anticoagulation as above Chronic respiratory failure related to COPD on home oxygen. No exacerbation. albuterol as needed. Depression. Continue home medications. Hypertension. Hold home medications to episodes of hypotension. GERD. Continue PPI. Obesity. BMI 33.8. May contribute to other comorbidities. Hyperlipidemia. Continue statin DVT prophylaxis with therapeutic Lovenox .
[2020-02-01] MEDS: buPROPion HCl XL 150 MG TAB.ER.24H PO (18:56)
[2020-02-01] MEDS: Remdesivir 100 MG in 0.9 % Sodium Chloride 230 ML 125 MG IV (19:58)
[2020-02-02] VITALS: BP 137/65; PULSE 82; RESP 17; TEMP 36.4; O2SAT 100
[2020-02-02 03:43] VITALS: BP 126/84; PULSE 73; RESP 17; TEMP 36.1; O2SAT 99
[2020-02-02] MEDS: Omeprazole 20 MG CAPSULE.DR PO (05:36)
[2020-02-02 08:00] VITALS: BP 135/94; PULSE 98; RESP 18; TEMP 36.4; O2SAT 98
[2020-02-02] MEDS: Enoxaparin Sodium 80 MG/0.8 ML SYRINGE SUBCUT (08:35)
[2020-02-02] MEDS: allopurinoL 100 MG TABLET PO (08:36)
[2020-02-02] MEDS: dexAMETHasone 6 MG TABLET PO (08:36)
[2020-02-02] MEDS: DULoxetine HCl 60 MG CAPSULE.DR PO (08:36)
[2020-02-02] MEDS: buPROPion HCl XL 300 MG TAB.ER.24H PO (08:36)
[2020-02-02] MEDS: 0.9 % Sodium Chloride Flush 3 ML SYRINGE IVFLUSH (08:36)
[2020-02-02] MEDS: Atorvastatin Calcium 80 MG TABLET PO (08:36)
[2020-02-02] MEDS: Doxycycline Hyclate 100 MG in 0.9 % Sodium Chloride 250 ML 166.67 MG IV (11:00)
[2020-02-02 11:03] VITALS: BP 127/58; PULSE 88; RESP 18; TEMP 36.3; O2SAT 100
--- NOTE | 2020-02-02 11:36 | PM.DS ---
DS: Providers Provider Date of admission: 01/30/20 21:08 Primary care physician: Jann Thursotn MD Consults: 01/30/20 22:19 Consult to Cardiology Routine Consulting Provider: Shawn Ross Reason for consultation: new aflutter Has provider been notified: No Consult to Infectious Diseases Routine Consulting Provider: Chelsea Estrada Reason for consultation: covid 19 Has provider been notified: No 01/30/20 23:46 Consult to Pulmonology Routine Consulting Provider: [facility] Reason for consultation: PE Has provider been notified: No DS: Diagnosis Discharge Diagnosis (1) NSTEMI (non-ST elevated myocardial infarction): Status: Resolved (2) COVID-19: Problem details: She has COVID She is on oxygen as she is at home but with slightly elevated needs She has new PE and is on anticoagulation She has atrial flutter Prognosis guarded (3) Pulmonary embolism: Status: Acute (4) Atrial flutter: Status: Resolved (5) Myocarditis: (6) Pneumonia: DS: Medications Discharge Medications Home Medications: Home Medications Medication Instructions Recorded Confirmed allopurinol 100 mg PO DAILY 01/30/20 01/30/20 bupropion HCl 150 mg PO DAILY@1700 01/30/20 01/30/20 bupropion HCl 300 mg PO DAILY 01/30/20 01/30/20 diltiazem HCl [DILT-XR] 240 mg PO DAILY 01/30/20 01/30/20 duloxetine 60 mg PO DAILY 01/30/20 01/30/20 [id number] 1 inh INHALATION DAILY 01/30/20 01/30/20 [Trelegy Ellipta] furosemide 80 mg PO DAILY 01/30/20 01/30/20 lisinopril 20 mg PO DAILY 01/30/20 01/30/20 omeprazole 20 mg PO DAILY 01/30/20 01/30/20 potassium chloride 10 meq PO DAILY 01/30/20 01/30/20 rosuvastatin 20 mg PO DAILY 01/30/20 01/30/20 DS: Summary Hospital Course Hospital Course: HPI from 01/30/20 Chief Complaint: Shortness of breath 79-year-old woman presented to the ER with complaints of worsening shortness of breath and weakness. She reports that approximately 2 weeks ago her son had tested positive for COVID and she had previously tested negative. Then her son encouraged her and her to go back to get tested again and last Thursday they tested positive. Throughout the week they continued to decline and have increased shortness of breath coughing with green and brown sputum, fevers, chills. She does have chronic respiratory failure related to COPD and does use home oxygen however she had been using it more frequently. She reported that she had been quarantine at home for her symptoms full worse especially yesterday where she had increased shortness of breath and lethargy and decided to come into the ER to be evaluated. Chest CT subsequently showed right lower lobe pulmonary emboli with patchy bilateral ground-glass airspace opacities. She had mild decrease in her sodium, she was noted to have an elevated troponin of 1109 D with BP of 1751. She had no complaints of chest pain and her EKG showed new atrial flutter. She did not appear to have any hypoxic episodes while in the ER. She did have some episodes of hypotension but these did resolve. She was started on therapeutic Lovenox in the ER. Given a dose of ceftriaxone, Rocephin. She be admitted for further management and treatment of coronavirus pneumonia, new pulmonary embolus and new onset atrial flutter. Hospital Course: 79/F COPD on home O2, and recent diagosis of covid 19 here with SOB and found to have NSTEMI, PE and new AFIB COVID-19 pneumonia. No increase in WBC, oxygenating fine. Will treat with Doxycycline for 7 days To complete 10 day course of Dexamethasone. She wasgiven Plasma x 1 by pulmonology. ID started Remdesevir but given that patient was doing very well even before the medication, ID advised that it be stopped and to NSTEMI. Conservative management as guided by Dr. Ross Pulmonary embolus. Possibly related to COVID-19. Has been on Lovenox in the hospital and will transitioned to Eliquis SABRINA--CPAP at [facility] New atrial flutter. Rate is controlled, and anticoagulation as above Chronic respiratory failure related to COPD on home oxygen. No exacerbation. albuterol as needed. Depression. Continue home medications. Hypertension. Hold home medications to episodes of hypotension. GERD. Continue PPI. Obesity. BMI 33.8. May contribute to other comorbidities, advised weight loss Time Spent with Patient Time attestation: Total time spent providing and/or coordinating discharge services: Physical Exam Vital Signs: Vital Signs: Last Vital Signs Temp 97.3 F 02/02/20 11:03 Pulse 88 02/02/20 11:03 Resp 18 02/02/20 11:03 BP 127/58 L 02/02/20 11:03 Pulse Ox 100 02/02/20 11:03 Body Mass Index 33.8 General: AO X 3, no acute distress Resp: normal respiratory effort CVS: S1,S2,RRR GI: no pain Skin: No rash Neuro: motor grossly intact Psych: appropriate affect DS: Data Data Completed and Pending Labs on day of discharge: 01/30/20 Breakfast Low Sodium Diet 01/30/20 12:12 ECG 12 lead EKG Stat EKG Documentation DIRECTED 01/30/20 12:13 XR chest 1V Stat 01/30/20 12:30 Complete Blood Count Auto Diff Stat SLIDE REVIEW Stat 01/30/20 13:21 Azithromycin [Zithromax] 500 mg 0.9 % Sodium Chloride [Ns] 250 ml IV ONCE cefTRIAXone sodium [Rocephin] 1 gm 0.9 % Sodium Chloride [Ns] 50 ml IV ONCE 01/30/20 13:37 cefTRIAXone sodium [Rocephin] 1 gm .ROUTE .STK-MED ONE 01/30/20 13:38 Azithromycin [Zithromax] 500 mg IV .STK-MED ONE 01/30/20 14:18 0.9 % Sodium Chloride [Ns] 1,000 ml IV 999 mls/hr 01/30/20 14:24 Basic Metabolic Panel Stat Ferritin Stat Lactate Dehydrogenase Stat Liver Panel Stat Liver Panel Stat Magnesium Stat Procalcitonin Stat 01/30/20 14:32 B Type Natriuretic Peptide Stat Lactic Acid Stat Troponin-I High Sensitivity Stat 01/30/20 16:47 CT angio chest PE protocol Stat 01/30/20 17:32 Azithromycin [Zithromax] 500 mg 0.9 % Sodium Chloride [Ns] 250 ml IV ONCE 01/30/20 17:35 Azithromycin [Zithromax] 500 mg IV .STK-MED ONE 01/30/20 18:13 iohexoL 350 MG/ML [Omnipaque 350 MG/ML] 100 ml IV ONCE ONE 01/30/20 18:53 Partial Thromboplastin Time Stat Prothrombin Time INR Stat Troponin-I High Sensitivity Stat 01/30/20 19:04 Apixaban [Eliquis] 10 mg PO ONCE ONE 01/30/20 19:51 Enoxaparin Sodium [Lovenox] 85 mg SUBCUT ONCE ONE 01/30/20 21:00 Transfer Order Routine 01/30/20 22:19 EKG Documentation DIRECTED 01/30/20 22:37 Add Laboratory Test Stat 01/30/20 22:53 Complete Blood Count no Diff Stat Partial Thromboplastin Time Stat Prothrombin Time INR Stat Troponin-I High Sensitivity Routine 01/30/20 23:09 SARS-CoV2/FLU/RSV Stat 01/31/20 05:50 Basic Metabolic Panel DAILY@0600 Complete Blood Count Man Dif Routine Troponin-I High Sensitivity Routine 01/31/20 06:00 ECG 12 lead EKG Routine 01/31/20 08:00 Enoxaparin Sodium [Lovenox] 80 mg SUBCUT Q12H 01/31/20 10:16 Doxycycline Hyclate [Vibramycin] 100 mg IV .STK-MED ONE 01/31/20 13:17 cefTRIAXone sodium [Rocephin] 1 gm .ROUTE .STK-MED ONE 01/31/20 14:00 cefTRIAXone sodium [Rocephin] 1 gm 0.9 % Sodium Chloride [Ns] 50 ml IV Q24H 01/31/20 15:37 Convalescent Covid Plasma Urgent Type and Screen Urgent 01/31/20 17:00 CA echo transthoracic complete Routine 01/31/20 17:24 Blood Urea Nitrogen Stat Complete Blood Count Auto Diff Stat Creatinine Stat Electrolytes Stat Liver Panel Stat Partial Thromboplastin Time Stat Prothrombin Time INR Stat SLIDE REVIEW Stat 01/31/20 20:00 Remdesivir (EUA) 200 mg 0.9 % Sodium Chloride [Ns] 210 ml IV ONCE 01/31/20 21:07 Prothrombin Time INR Routine 01/31/20 21:55 Doxycycline Hyclate [Vibramycin] 100 mg IV .STK-MED ONE 02/01/20 05:44 Blood Urea Nitrogen Routine Complete Blood Count Auto Diff Routine Creatinine Routine Electrolytes Routine Liver Panel Routine Partial Thromboplastin Time Routine Prothrombin Time INR Routine SLIDE REVIEW Routine 02/01/20 10:35 Doxycycline Hyclate [Vibramycin] 100 mg IV .STK-MED ONE 02/01/20 20:00 Remdesivir (EUA) 100 mg 0.9 % Sodium Chloride [Ns] 230 ml IV Q24H 02/01/20 22:17 Doxycycline Hyclate [Vibramycin] 100 mg IV .STK-MED ONE 02/02/20 10:54 Doxycycline Hyclate [Vibramycin] 100 mg IV .STK-MED ONE Laboratory Last Values WBC 10.4 X10*3/uL (4.8-10.8) 02/01/20 05:44 RBC 3.67 X10*6/uL (4.20-5.50) L 02/01/20 05:44 Hgb 10.8 g/dl (12.0-16.0) L 02/01/20 05:44 Hct 33.4 % (37-47) L 02/01/20 05:44 MCV 91.0 fL (80-98) 02/01/20 05:44 MCH 29.4 pg (27.0-33.0) 02/01/20 05:44 MCHC 32.3 g/dl (31.0-35.0) 02/01/20 05:44 RDW 13.6 % (11.0-16.0) 02/01/20 05:44 Plt Count 510 X10*3/uL (160-400) H 02/01/20 05:44 MPV 10.2 fL (9.4-12.3) 02/01/20 05:44 Immature Gran % (Auto) 1.7 % (0.0-0.4) H 02/01/20 05:44 Neut % (Auto) 72.5 % (45-73) 02/01/20 05:44 Lymph % (Auto) 15.7 % (20-40) L 02/01/20 05:44 Power % (Auto) 10.0 % (2-11) 02/01/20 05:44 Eos % (Auto) 0.0 % (0-4) 02/01/20 05:44 Baso % (Auto) 0.1 % (0-2) 02/01/20 05:44 Lymph # (Auto) 1.6 X10*3/uL (1.2-4.9) 02/01/20 05:44 Power # (Auto) 1.0 X10*3/uL (0.1-1.2) 02/01/20 05:44 Eos # (Auto) 0.0 X10*3/uL (0.0-0.4) 02/01/20 05:44 Baso # (Auto) 0.0 X10*3/uL (0.0-0.2) 02/01/20 05:44 Abs Immat Gran (auto) 0.18 X10*3/uL (0.00-0.03) H 02/01/20 05:44 Absolute Neuts (auto) 7.5 X10*3/uL (2.0-8.3) 02/01/20 05:44 Absolute Nucleated RBC 0.000 X10*3/uL (0.0-0.012) 02/01/20 05:44 Nucleated RBC % (auto) 0.0 /100WBC (0.0-0.2) 02/01/20 05:44 Neutrophils % (Manual) 76 % (45-73) H 01/31/20 05:50 Band Neutrophils % 3 % (3-5) 01/31/20 05:50 Lymphocytes % (Manual) 11 % (20-40) L 01/31/20 05:50 Atypical Lymphs % (Man) 1 % (0-6) 01/31/20 05:50 Monocytes % (Manual) 8 % (2-11) 01/31/20 05:50 Metamyelocytes % 1 % 01/31/20 05:50 Abs Neuts (Manual) 7.7 X10*3/uL (2.2-7.9) 01/31/20 05:50 Lymphocytes # (Manual) 1.1 X10*3/uL (0.6-4.8) 01/31/20 05:50 Atyp Lymphs # (Manual) 0.1 x10*3/uL 01/31/20 05:50 Monocytes # (Manual) 0.8 X10*3/uL (0.0-1.2) 01/31/20 05:50 Metamyelocytes # 0.1 X10*3/uL 01/31/20 05:50 Platelet Estimate INCREASED (NORMAL) 01/31/20 05:50 Large Platelets PRESENT 01/31/20 05:50 Plt Morphology Comment NOTED 01/31/20 05:50 RBC Morphology NOTED 01/31/20 05:50 Hypochromasia 1+ 01/31/20 05:50 Macrocytosis 1+ 01/31/20 05:50 Smear Tech's Comments VERIFIED 02/01/20 05:44 PT 12.5 SEC (10.8-13.0) 02/01/20 05:44 INR 1.1 (0.9-1.1) 02/01/20 05:44 APTT 34.8 SEC (24.1-38.0) 02/01/20 05:44 Sodium 138 mmol/L (135-145) 02/01/20 05:44 Potassium 4.2 mmol/l (3.3-5.1) 02/01/20 05:44 Chloride 100 mmol/L (96-108) 02/01/20 05:44 Carbon Dioxide 27 mmol/L (22-29) 02/01/20 05:44 Anion Gap 15 (-20) 02/01/20 05:44 BUN 12 mg/dL (9-16) 02/01/20 05:44 Creatinine 0.80 mg/dL (0.5-1.4) 02/01/20 05:44 Estim Creat Clear Calc 59.1 02/01/20 05:44 Estimated GFR > 60 02/01/20 05:44 Random Glucose 60 mg/dL (60-115) 01/31/20 05:50 Lactic Acid 0.9 mmol/L (0.5-2.0) 01/30/20 14:32 Calcium 8.5 mg/dL (8.4-10.2) 01/31/20 05:50 Magnesium 1.7 mg/dL (1.6-2.6) 01/30/20 14:24 Magnesium Cancelled 01/30/20 14:24 Ferritin 388 ng/mL (10-250) H 01/30/20 14:24 Total Bilirubin 0.3 mg/dL (0.0-1.0) 02/01/20 05:44 Direct Bilirubin 0.2 mg/dL (0.0-0.5) 02/01/20 05:44 AST 37 U/L (5-31) H 02/01/20 05:44 ALT 18 U/L (0-31) 02/01/20 05:44 Alkaline Phosphatase 136 U/L (39-117) H 02/01/20 05:44 Lactate Dehydrogenase 308 U/L (122-220) H 01/30/20 14:24 Troponin I High Sens 2504.1 ng/L (<3.5-17.0) H 01/31/20 05:50 B-Natriuretic Peptide 198 pg/mL (<100) H 01/30/20 14:32 Total Protein 5.7 g/dL (6.5-8.0) L 02/01/20 05:44 Albumin 3.1 g/dL (3.5-5.0) L 02/01/20 05:44 Procalcitonin 0.28 ng/mL 01/30/20 14:24 Urine Color YELLOW 01/30/20 18:46 Urine Appearance CLEAR 01/30/20 18:46 Urine pH 5.5 (5.0-8.0) 01/30/20 18:46 Ur Specific [place] <= 1.005 (1.005-1.025) 01/30/20 18:46 Urine Protein NEG MG/DL (NEG-TRACE) 01/30/20 18:46 Urine Glucose (UA) NEG MG/DL (NEG) 01/30/20 18:46 Urine Ketones NEG MG/DL (NEG) 01/30/20 18:46 Urine Blood TRACE (NEG) 01/30/20 18:46 Urine Nitrite NEG (NEG) 01/30/20 18:46 Ur Leukocyte Esterase NEG (NEG) 01/30/20 18:46 Urine RBC 0 /HPF (0) 01/30/20 18:46 Urine WBC 0 /HPF (0-4) 01/30/20 18:46 Ur Squamous Epith Cells 1+ /LPF 01/30/20 18:46 Urine Bacteria 1+ /LPF 01/30/20 18:46 Coronavirus (PCR) Cancelled 01/30/20 23:09 Coronavirus (PCR) POSITIVE (Negative) A 01/30/20 23:09 COVID-19 PCR Cancelled 01/30/20 23:09 Influenza Type A (PCR) Cancelled 01/30/20 23:09 Influenza Type A (PCR) NEGATIVE (Negative) 01/30/20 23:09 Influenza Type B (PCR) Cancelled 01/30/20 23:09 Influenza Type B (PCR) NEGATIVE (Negative) 01/30/20 23:09 RSV RNA Qual (PCR) Cancelled 11/30/20 23:09 RSV RNA Qual (PCR) NEGATIVE (Negative) 01/30/20 23:09 Blood Type O Negative 01/31/20 15:37 Antibody Screen NEGATIVE 01/31/20 15:37 Preliminary micro results at discharge 01/30/20 14:32 Blood Culture - Preliminary Blood - Venous No growth after 48 hours. 01/30/20 14:24 Blood Culture - Preliminary Blood - Venous No growth after 48 hours. Discharge Plan Discharge Anticipated Discharge Date/Time: 02/02/20 11:47 Patient Disposition: Home, Self-Care Referrals: Jann Thurston MD [Primary Care Provider] - 1 Week (Nurse will call you with a appointment.) Discharge Medications: New doxycycline hyclate 100 mg tablet 100 mg PO DAILY Qty: 10 RF: 0 dexamethasone 6 mg Tablet 6 mg PO DAILY Qty: 7 RF: 0 apixaban 5 mg tablet 5 - 10 mg PO BID Qty: 45 RF: 0 Continued potassium chloride 10 mEq capsule, extended release 10 meq PO DAILY RF: 0 diltiazem HCl [DILT-XR] 240 mg capsule,ext.rel 24h degradable 240 mg PO DAILY RF: 0 allopurinol 100 mg tablet 100 mg PO DAILY RF: 0 furosemide 80 mg tablet 80 mg PO DAILY RF: 0 omeprazole 20 mg capsule,delayed release(DR/EC) 20 mg PO DAILY RF: 0 rosuvastatin 20 mg tablet 20 mg PO DAILY RF: 0 bupropion HCl 300 mg tablet extended release 24 hr 300 mg PO DAILY RF: 0 duloxetine 60 mg capsule,delayed release(DR/EC) 60 mg PO DAILY RF: 0 Trelegy Ellipta 100-62.5-25 mcg blister with device 1 inh inhalation DAILY RF: 0 bupropion HCl 150 mg tablet extended release 24 hr 150 mg PO DAILY@1700 RF: 0 Discontinued lisinopril 20 mg tablet 20 mg PO DAILY RF: 0 Discharge Orders: Discharge Order (Routine); Ordered 02/02/20 Ordered By: Jama Beckwith Activity on Discharge: As tolerated Discharge Date/Time: 02/02/20 15:20 Visit Report Forms: Patient Portal Discharge page Care Plan Goals: prevent rehospitalization and fully recover Health Concerns: need for blood thinking Plan of Treatment: Take Eliquis, Dexamathosone and Doxycline as recommended. Follow up with your Doctor in a week, call for appointment. Stop taking Lisinopril as you do not need for high blood pressure at this time.
--- NOTE | 2020-02-02 12:06 | MHC.CM.PN ---
Pt being discharged home today, no services ordered. Family to transport
--- NOTE | 2020-02-02 12:26 | MHC.CM.PN ---
CM spoke to pts son, Robert ([phone]) who reports he will be the one picking pt up at [place]. CM explained that pt will be Dc on Eliquis and pt will be provided with a 30 free trial coupon that should be presented at the pharmacy. Robert asked that pts DC meds be reviewed with him. CM explained the pts nurse would be reviewing DC meds and instructions and CM will ask that she call him to do so. Robert will discuss pickers material handlers time with pts nurse.
[2020-02-02 13:07] VITALS: BP 127/58; PULSE 88
[2020-02-02] MEDS: dilTIAZem HCL CD 240 MG CAP.ER.DEG PO (13:07)
[2020-02-02] MEDS: Furosemide 40 MG TABLET 80 MG PO (13:07)
[2020-02-02 14:11] VITALS: BP 156/76
== END 2020-02-02 15:20 | disposition home or self-care (01) | DRG 177 ==
LOC: HO.ED 19:09 → HO.IMC 21:37
PROVIDERS: Internal Medicine; Nurse Practitioner Acute Care; Nurse Practitioner Family; Admitting Provider Internal Medicine; Emergency Provider Internal Medicine; PCP Internal Medicine; Visit Provider Internal Medicine
DX: U07.1 COVID-19 (principal); I26.99 Other pulmonary embolism without acute cor pulmonale; J12.89 Other viral pneumonia; I40.0 Infective myocarditis; I21.4 Non-ST elevation (NSTEMI) myocardial infarction; I48.92 Unspecified atrial flutter; J96.10 Chronic respiratory failure, unspecified whether with hypoxia or hypercapnia; M10.9 Gout, unspecified; E66.9 Obesity, unspecified; K21.9 Gastro-esophageal reflux disease without esophagitis; E78.5 Hyperlipidemia, unspecified; J41.0 Simple chronic bronchitis; F32.9 Major depressive disorder, single episode, unspecified; Z68.33 Body mass index [BMI] 33.0-33.9, adult; Z98.84 Bariatric surgery status; Z99.89 Dependence on other enabling machines and devices; Z99.81 Dependence on supplemental oxygen; Z95.2 Presence of prosthetic heart valve; Z79.01 Long term (current) use of anticoagulants; Z79.899 Other long term (current) drug therapy
CPT/HCPCS: 0241U; 36415; 71045; 71275; 80048; 80051; 80076; 81001; 81003; 82565; 82728; 83605; 83615; 83735; 83880; 84145; 84484; 84520; 85007; 85025; 85027; 85610; 85730; 86850; 86900; 86901; 87040; 93005; 93306; 96365; 96366; 96372; 99285; J0456; J0696; J1650; J3490; J8540; Q9967; U0003

== ENCOUNTER 2020-08-17 12:06 | Inpatient (IN) | payer MEDICARE, SELFPAY ==
--- NOTE | ~2020-08-17 | FL_ITS ---
EXAMINATION: FL BARIUM SWALLOW CLINICAL INFORMATION: History a gastric band evaluation of aspiration. COMPARISON: None TECHNIQUE: Barium swallow examination is performed using fluoroscopic evaluation in addition to multiple fluoroscopic spot views. The patient is imaged both upright and prone and using both thick and thin sulfate along with effervescent granules. Fluoroscopy time: 2.2 minutes DAP: 23.868 Gycm2 Images: 67 FINDINGS: Following oral administration of thin barium there is normal propagation of bolus from the oral cavity through the pharynx, esophagus into the stomach is no intraluminal filling defects seen. There is a gastric band seen in the fundus which appears to be slightly tighter resulting in distention of remaining proximal fundus and the distal esophagus. Constant gastroesophageal reflux but no hiatal hernia seen. No laryngeal penetration or aspiration seen during exam. No retention of barium in the valleculae or piriform sinuses. FL/FL barium swallow IMPRESSION: No intraluminal filling defects seen in the esophagus or any narrowing. There is a tight gastric band seen in the proximal fundus resulting in moderate distention proximal fundal stomach and the distal esophagus. There is moderate gastroesophageal reflux seen throughout the exam. No laryngeal penetration or aspiration seen during the exam.
--- NOTE | ~2020-08-17 | CT_ITS ---
EXAMINATION: CT ANGIOGRAM OF THE CHEST WITH AND WITHOUT CONTRAST (CT PULMONARY ANGIOGRAM FOR PE) CLINICAL INFORMATION: Reason for Exam coughing up blood clots. PE? COMPARISON: Previous CTA January 2020 chest x-ray most recent from earlier the same day TECHNIQUE: Prior to contrast administration, noncontrast localization images were obtained. Subsequently, multidetector volumetric imaging was performed from the thoracic inlet to below the diaphragms following the administration of 65 mL Omnipaque 350 intravenous contrast. No contrast reaction reported Sagittal, coronal, and MIP oblique sagittal reformatted images were obtained on the CT workstation, uploaded to PACS, and reviewed. This CT examination was performed using dose optimization techniques as appropriate, variously including the following: *Automated exposure control *Adjustment of mA and/or kV according to patient size (this includes techniques or standardized protocols for targeted exams where dose is matched to indication/reason for exam; i.e. extremities or head) *Use of iterative reconstruction technique Total exam dose-length product 414 mGy-cm FINDINGS: QUALITY OF STUDY/CONTRAST BOLUS: Satisfactory. PULMONARY ARTERIES: There is a small right lower lobe pulmonary embolism for example image [id number] series 5. This is seen in the area of previous pulmonary embolism January 2020 and appears decreased in size. It is uncertain whether this represents a new or acute pulmonary embolism or is related to chronic changes from old pulmonary embolism. No other evidence of pulmonary emboli is seen. THORACIC AORTA: No aneurysm or dissection. LUNG: There are small areas of new airspace disease in the posterior segment of the right upper lobe and left lower lobe suggestive of pneumonia. The previously identified groundglass attenuation areas in the lungs are no longer seen. There is scarring or subsegmental atelectasis in the inferior segment of the lingula and bilateral lower lobes. PLEURA: No pleural effusion or pneumothorax. MEDIASTINUM: Normal heart size. Post-CABG changes. No pericardial effusion. No hilar or mediastinal lymphadenopathy. No evidence of septal bowing or right heart strain. The esophagus is dilated and slightly fluid-filled. Possible aspiration should be considered. CHEST WALL/AXILLA: No axillary or internal mammary lymphadenopathy. OSSEOUS STRUCTURES: There are degenerative changes of the spine. There are median sternotomy changes. UPPER ABDOMEN: There is a gastric lap band. No reflux of contrast into the hepatic veins to suggest elevated right heart pressures. CT/CT angio chest PE protocol IMPRESSION: Small right lower lobe pulmonary emboli. This is in similar location to pulmonary emboli seen January 2020 and appears decreased in size. It is uncertain whether this represents chronic changes from pulmonary emboli or could represent an acute pulmonary emboli. New airspace disease in the right upper lobe and left lower lobe probably representing pneumonia. Dilated fluid filled esophagus. Possible aspiration should be considered. Gastric lap band. Post-CABG changes. VTE: positive Findings were communicated Nikih[place]se[place] by telephone on 08/17/2020 at 5:00 PM.
--- NOTE | ~2020-08-17 | XR_ITS ---
EXAMINATION: XR CHEST CLINICAL INFORMATION: Cough. COMPARISON: CT a chest 01/30/2020 TECHNIQUE: Frontal view of the chest was obtained. FINDINGS: The lungs are is hyperinflated without acute pneumonic process. There is patchy atelectatic changes in the left lower lobe posterior basal segment. The heart size and pulmonary vascularity is normal. There are median sternotomy sutures from previous intervention. No gross bony abnormality seen. XR/XR chest 1V IMPRESSION: There is patchy atelectatic or infiltrate changes in left lower lobe posterior segment. Rest of the lungs. A left lower lobe infiltrate was seen on the previous CTA chest 01/30/2020.
[2020-08-17 12:42] VITALS: BP 165/70; PULSE 78; RESP 81; TEMP 36.4; O2SAT 100; BMI 32.0
[2020-08-17 13:51] VITALS: BP 144/102; PULSE 71; RESP 20; TEMP 36.3; O2SAT 97
[2020-08-17 14:00] VITALS: BP 124/46; PULSE 73; RESP 16; O2SAT 98
[2020-08-17 14:21] LABS: MANUAL DIFF FLAG NO
[2020-08-17 14:22] LABS: Basophils Absolute Auto 0.1 X10*3/uL (0.0-0.2); Basophils Percent Auto 0.4 % (0-2); Eosinophils Absolute Auto 0.1 X10*3/uL (0.0-0.4); Eosinophils Percent Auto 1.1 % (0-4); Hematocrit 35.8 % (37-47); Hemoglobin 11.1 g/dl (12.0-16.0); Imm Gran Pct Auto 0.8 % (0.0-0.4); Lymphocytes Absolute Auto 2.2 X10*3/uL (1.2-4.9); Lymphocytes Percent Auto 17.6 % (20-40); Mean Corpuscular Hemoglobin 28.2 pg (27.0-33.0); Mean Corpuscular Volume 91.1 fL (80-98); Mean Platelet Volume 9.8 fL (9.4-12.3); Monocytes Absolute Auto 1.1 X10*3/uL (0.1-1.2); Monocytes Percent Auto 8.9 % (2-11); Neutrophils Absolute Auto 8.8 X10*3/uL (2.0-8.3); Neutrophils Percent Auto 71.2 % (45-73); Platelet Count 415 X10*3/uL (160-400); Red Blood Count 3.93 X10*6/uL (4.20-5.50); Red Cell Distribution Width 15.2 % (11.0-16.0); White Blood Count 12.3 X10*3/uL (4.8-10.8)
[2020-08-17 14:36] LABS: INTERNATIONAL NORM RATIO 1.6 (0.9-1.1); Prothrombin Time 18.7 SEC (10.8-13.0)
[2020-08-17 14:39] LABS: Partial Thromboplastin Time 38.8 SEC (24.1-38.0)
[2020-08-17 14:56] LABS: Alanine Aminotransferase 9 U/L (0-31); Alkaline Phosphatase 204 U/L (39-117); Anion Gap 15 (12-20); Aspartate Amino Transferase 14 U/L (5-31); Bilirubin Total 0.4 mg/dL (0.0-1.0); Blood Urea Nitrogen 15 mg/dL (9-16); Carbon Dioxide 31 mmol/L (22-29); Chloride 102 mmol/L (96-108); Estimated Glomerular Filt Rate 46; Glucose Random 100 mg/dL (60-115); Potassium 5.1 mmol/L (3.3-5.1); Sodium 143 mmol/L (135-145); Total Protein 6.7 g/dL (6.5-8.0)
[2020-08-17 15:02] LABS: Influenza A PCR NEGATIVE (Negative); Influenza B PCR NEGATIVE (Negative); Resp Syncy Virus RNA Qual PCR NEGATIVE (Negative); SARS COV2 PCR INHOUSE NEGATIVE (Negative)
[2020-08-17 15:03] LABS: B Type Natriuretic Peptide 90 pg/mL (<100)
[2020-08-17 15:21] LABS: OBS Int Ctl Valid YES; OBS1 NEGATIVE (NEGATIVE)
[2020-08-17] MEDS: iohexoL 350 MG/ML 100 ML INFUS..BTL 65 ML IV (16:29)
[2020-08-17 17:43] VITALS: O2SAT 100
--- NOTE | 2020-08-17 17:56 | ED.URI ---
HPI - URI/Sore Throat General Chief Complaint: Upper Respiratory Symptoms Stated Complaint: coughing up blood Time Seen by Provider: 08/17/20 13:47 Source: patient Mode of arrival: ambulatory Limitations: no limitations History of Present Illness HPI Narrative: Patient presents to ED for coughing up blood clots. Patient states 3 days ago she had nose bleed that resolved on his own and today she woke up with 4 episodes of coughing of blood clots. Patient states before this she had been having a dry cough with fever for 4 days. Patient states he is vaccinated against the COVID vaccine. Patient denies any chest pain or shortness of breath. Patient states known history of pulmonary embolus as recent as December of last year. Patient denies any leg swelling or calf pain. MD elicited complaint: fever and cough Related Data Home Medications Medication Instructions Recorded Confirmed Trelegy Ellipta 1 inh INHALATION DAILY 01/30/20 01/30/20 allopurinol 100 mg PO DAILY 01/30/20 01/30/20 bupropion HCl 150 mg PO DAILY@1700 01/30/20 01/30/20 bupropion HCl 300 mg PO DAILY 01/30/20 01/30/20 diltiazem HCl [DILT-XR] 240 mg PO DAILY 01/30/20 01/30/20 duloxetine 60 mg PO DAILY 01/30/20 01/30/20 furosemide 80 mg PO DAILY 01/30/20 01/30/20 omeprazole 20 mg PO DAILY 01/30/20 01/30/20 potassium chloride 10 meq PO DAILY 01/30/20 01/30/20 rosuvastatin 20 mg PO DAILY 01/30/20 01/30/20 Previous Rx's Medication Instructions Recorded apixaban 5 - 10 mg PO BID #45 tab 02/02/20 dexamethasone 6 mg PO DAILY #7 tab 02/02/20 doxycycline hyclate 100 mg PO DAILY #10 tab 02/02/20 Allergies Allergy/AdvReac Type Severity Reaction Status Date / Time No Known Allergies Allergy Unverified 11/17/19 14:34 [No Known Allergies*] Review of Systems Review of Systems: Yes all other systems are reviewed and are negative Constitutional: Constitutional: Reports as per HPI, Reports no additional constitutional complaints and Reports fever(s) Eyes: Eyes: Reports as per HPI and Reports no additional eye complaints ENT: Reports system reviewed and no additional complaints, except as documented and Reports as per HPI Cardiovascular: Cardiovascular: Reports as per HPI and Reports no additional cardiovascular complaints Respiratory: Respiratory: Reports as per HPI, Reports no additional respiratory complaints, Reports cough and Reports hemoptysis Comments: Hemoptysis Gastrointestinal: Gastrointestinal: Reports as per HPI and Reports no additional gastrointestinal complaints Genitourinary: Genitourinary: Reports no additional female genitourinary complaints and Reports as per HPI Musculoskeletal: Musculoskeletal: Reports no additional musculoskeletal complaints and Reports as per HPI Neurologic: Reports system reviewed and no additional complaints, except as documented and Reports as per HPI Psychiatric: Psychiatric: Reports no additional psychiatric complaints and Reports as per HPI [facility] Past Medical History Medical History Acute respiratory failure CHF (congestive heart failure) COPD (chronic obstructive pulmonary disease) Depression Diabetes mellitus Gout Heart valve problem HTN (hypertension) Myocarditis Obesity SABRINA on CPAP Pneumonia Surgical History History of aortic valve replacement with bioprosthetic valve History of total right hip arthroplasty Hx of laparoscopic gastric banding Previous back surgery Family History Family History Sister Lung cancer Mother Renal cancer Other Diabetes mellitus Social History Social History Household Members: Family Household Members Other:: lives with her and her son Housing: House Do you presently have visiting nurse or other home services: No Alcohol intake: never Patient Tobacco Use Status: Never used Tobacco Use of substances other than those prescribed or required for medical reasons: No Advance Directives: No Advance Directives Information Provided: No service: No Current occupational status: retired Physical Exam Vital Signs: Vital Signs: Last Vital Signs Temp 97.4 F 08/17/20 13:51 Pulse 73 08/17/20 14:00 Resp 16 08/17/20 14:00 BP 124/46 L 08/17/20 14:00 Pulse Ox 100 08/17/20 17:43 Oxygen Flow Rate 2 08/17/20 17:43 Body Mass Index 32.0 Const: General: cooperative, healthy appearing, comfortable, no acute distress, well developed, alert, awake and Physically active Orientation/consciousness: patient oriented x3 HENMT: Other: Nares and oral exam negative for any blood. Head: Yes normal to inspection, Yes No palpable skull fracture present, Yes normocephalic, Yes atraumatic and No abrasion Eyes: General: appearance normal, both eyes and all related structures Neck: Neck: Yes normal visual inspection, Yes full ROM, Yes no lymphadenopathy, Yes no meningeal signs, Yes trachea midline and Yes supple Chest: Chest palpation & inspection: normal inspection of the chest and normal palpation of entire chest wall Resp: Effort & Inspection: normal respiratory effort and able to speak in complete sentences Auscultation: clear to auscultation bilaterally Cardio: Jugular venous distension: no JVD Heart sounds: S1 normal heart sound present and S2 normal heart sound present GI: Other: Rectal exam negative for shivani blood or black stool. Positive for brown stool Inspection: Yes normal to inspection and No abdominal wall ecchymosis Palpation (GI): Soft to palpation, not firm, nontender, no guarding and not rigid : General: Yes CVA tenderness and Yes no CVA tenderness Back/Spine/Pelvis: Back: no CVA tenderness, CVA tenderness and No back tenderness Skin: General skin exam: no rashes or lesions noted and elasticity normal Neuro: General: patient oriented x3, gait normal, no meningeal signs and CN's II-XI intact bilaterally Cranial nerves: Yes CN's II-XII intact bilaterally Extrem: General: Yes normal to inspection and Yes full ROM Psych: Appearance: grossly normal, well kempt and not disheveled Course Course Course Narrative: Patient will have labs, stool guaiac, and chest CT ordered. Reevaluation(s) Reevaluation #1: Guaiac stool negative. Patient labs are at baseline. Patient hemodynamically stable. Patient is oxygen dependent and O2 saturation is 97% which is her baseline. Will send patient chest CT to rule out any PE or new pneumonia Time: 12:59 Reevaluation #2: Chest CTA shows right lower lobe PE that is smaller and in the same area as PE that was in December of last year. 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 Chest CT also shows bilateral pneumonia. Patient will be admitted for bilateral pneumonia. Patient evaluated by Dr. Gomez, the hospitalist, who states patient is not septic. She will accept patient for hemoptysis and pneumonia. Patient is afebrile not tachycardic and not hypoxic. Time: 18:05 MDM - URI/Sore Throat MDM Narrative Medical decision making narrative: Pneumonia. Hemoptysis Lab Data Result diagrams: 08/17/20 13:59 08/17/20 13:59 Labs: Lab Results 08/17/20 08/17/20 08/17/20 Range/Units 13:59 13:59 14:15 WBC 12.3 H (4.8-10.8) X10*3/uL RBC 3.93 L (4.20-5.50) X10*6/uL Hgb 11.1 L (12.0-16.0) g/dl Hct 35.8 L (37-47) % MCV 91.1 (80-98) fL MCH 28.2 (27.0-33.0) pg MCHC 31.0 (31.0-35.0) g/dl RDW 15.2 (11.0-16.0) % Plt Count 415 H (160-400) X10*3/uL MPV 9.8 (9.4-12.3) fL Immature Gran % (Auto) 0.8 H (0.0-0.4) % Neut % (Auto) 71.2 (45-73) % Lymph % (Auto) 17.6 L (20-40) % [place] % (Auto) 8.9 (2-11) % Eos % (Auto) 1.1 (0-4) % Baso % (Auto) 0.4 (0-2) % Lymph # (Auto) 2.2 (1.2-4.9) X10*3/uL [place] # (Auto) 1.1 (0.1-1.2) X10*3/uL Eos # (Auto) 0.1 (0.0-0.4) X10*3/uL Baso # (Auto) 0.1 (0.0-0.2) X10*3/uL Abs Immat Gran (auto) 0.10 H (0.00-0.03) X10*3/uL Absolute Neuts (auto) 8.8 H (2.0-8.3) X10*3/uL Absolute Nucleated RBC 0.000 (0.0-0.012) X10*3/uL Nucleated RBC % (auto) 0.0 (0.0-0.2) /100WBC PT 18.7 H D (10.8-13.0) SEC INR 1.6 H (0.9-1.1) APTT 38.8 H (24.1-38.0) SEC Sodium 143 (135-145) mmol/L Potassium 5.1 (3.3-5.1) mmol/L Chloride 102 (96-108) mmol/L Carbon Dioxide 31 H (22-29) mmol/L Anion Gap 15 (12-20) BUN 15 (9-16) mg/dL Creatinine 1.15 (0.5-1.4) mg/dL Estim Creat Clear Calc 40.0 Estimated GFR 46 Random Glucose 100 D (60-115) mg/dL Calcium 10.0 D (8.4-10.2) mg/dL Total Bilirubin 0.4 (0.0-1.0) mg/dL AST 14 D (5-31) U/L ALT 9 (0-31) U/L Alkaline Phosphatase 204 H D (39-117) U/L Troponin I High Sens (<3.5-17.0) ng/L B-Natriuretic Peptide (<100) pg/mL Total Protein 6.7 (6.5-8.0) g/dL Albumin 4.0 D (3.5-5.0) g/dL Stool Occult Blood (NEGATIVE) Coronavirus (PCR) (Negative) Influenza Type A (PCR) (Negative) Influenza Type B (PCR) (Negative) RSV RNA Qual (PCR) (Negative) 08/17/20 08/17/20 08/17/20 Range/Units 14:15 14:15 15:13 WBC (4.8-10.8) X10*3/uL RBC (4.20-5.50) X10*6/uL Hgb (12.0-16.0) g/dl Hct (37-47) % MCV (80-98) fL MCH (27.0-33.0) pg MCHC (31.0-35.0) g/dl RDW (11.0-16.0) % Plt Count (160-400) X10*3/uL MPV (9.4-12.3) fL Immature Gran % (Auto) (0.0-0.4) % Neut % (Auto) (45-73) % Lymph % (Auto) (20-40) % [place] % (Auto) (2-11) % Eos % (Auto) (0-4) % Baso % (Auto) (0-2) % Lymph # (Auto) (1.2-4.9) X10*3/uL [place] # (Auto) (0.1-1.2) X10*3/uL Eos # (Auto) (0.0-0.4) X10*3/uL Baso # (Auto) (0.0-0.2) X10*3/uL Abs Immat Gran (auto) (0.00-0.03) X10*3/uL Absolute Neuts (auto) (2.0-8.3) X10*3/uL Absolute Nucleated RBC (0.0-0.012) X10*3/uL Nucleated RBC % (auto) (0.0-0.2) /100WBC PT (10.8-13.0) SEC INR (0.9-1.1) APTT (24.1-38.0) SEC Sodium (135-145) mmol/L Potassium (3.3-5.1) mmol/L Chloride (96-108) mmol/L Carbon Dioxide (22-29) mmol/L Anion Gap (12-20) BUN (9-16) mg/dL Creatinine (0.5-1.4) mg/dL Estim Creat Clear Calc Estimated GFR Random Glucose (60-115) mg/dL Calcium (8.4-10.2) mg/dL Total Bilirubin (0.0-1.0) mg/dL AST (5-31) U/L ALT (0-31) U/L Alkaline Phosphatase (39-117) U/L Troponin I High Sens 7.0 (<3.5-17.0) ng/L B-Natriuretic Peptide 90 (<100) pg/mL Total Protein (6.5-8.0) g/dL Albumin (3.5-5.0) g/dL Stool Occult Blood NEGATIVE (NEGATIVE) Coronavirus (PCR) NEGATIVE (Negative) Influenza Type A (PCR) NEGATIVE (Negative) Influenza Type B (PCR) NEGATIVE (Negative) RSV RNA Qual (PCR) NEGATIVE (Negative) Discharge Plan Discharge Clinical Impression: Pneumonia Patient Disposition: Admitted As Inpatient
[2020-08-17] MEDS: cefTRIAXone sodium 1 GM in 0.9 % Sodium Chloride 50 ML IV (18:38)
[2020-08-17 18:59] LABS: Lactic Acid 1.5 mmol/L (0.5-2.0)
--- NOTE | 2020-08-17 19:15 | PC.NURSE ---
ASSUMED CARE OF PT FROM PREVIOUS NURSE. PT RESTING IN STRETCHER SPEAKING WITH HOSPITALIST AT BEDSIDE. PT DENIES ANY COMPLAINTS. PT REMAINS ON MONITOR WITH HR 58. PT STATES IM HUNGRY AND HAVEN'T EATEN SINCE NOON . PT GIVEN SANDWICH TO EAT. PT AWAITING FOR ROOM ASSIGNMENT. WILL CONTINUE TO MONITOR PT.
[2020-08-17] MEDS: Azithromycin 500 MG in 0.9 % Sodium Chloride 250 ML 125 MG IV (20:00)
--- NOTE | 2020-08-17 20:19 | P.HPHOSP_ITS ---
History of Present Illness Date of Service: 08/17/20 Chief Complaint: Cough, clots w coughing This is a 79-year-old female with an extensive past medical history including CHF, A fib,CAD s/p CABG, COPD, COVID-19 infection in January of 2020, PE on apixaban, HTN, NSTEMI, who presents to the hospital with complaints of persistent cough as well as shortness of breath. Patient also noticed multiple episodes of bloody phlegm as well as clots. Patient reports she had been coughing for the past 1 week with cold symptoms including runny nose, some sputum production, that initially was just green in color but yesterday she developed three episodes of small nose bleeds that spontaneously resolved. This a.m. around 2:23 a.m. patient felt something in her throat, cough turned up and found a large half upon size solid wet clot, she then had 2-3 episodes of bloody phlegm through the day that were small, reports that he has chronically been short of breath with no worsening, denies any melena, no blood in stool, no abdominal pain, she has had fevers at home around 100, denies any headache or change in vision, no chest pain, no palpitations. Patient is on baseline oxygen of 2-3 L at home. Patient denies any vomiting with no difficulty swallowing or episodes of aspiration. On arrival to the ED patient vitals significant for a temp of 97.5?, heart rate of 78, respiratory rate of 20, blood pressure was 65/70, satting 100% on 3 L of oxygen which is around her baseline Labs on arrival are significant for WBC count of 12.3, hemoglobin of 11.1, hematocrit 35.8 PT of 18.7, INR of 1.6, PTT of 38.8, BUN of 15, creatinine of 1.15, otherwise unremarkable. Chest CT angiogram showed small right lower lobe pulmonary emboli, this is in similar location to pulmonary emboli seen in January 2020 and appears decreased in size, it is uncertain whether this represents chronic changes from pulmonary emboli occurred present and acute pulmonary emboli, new airspace disease in the right upper lobe and left lower lobe probably representing pneumonia. Review of Systems Review of Systems: Yes all other systems are reviewed and are negative [facility] Medical History Acute respiratory failure CHF (congestive heart failure) COPD (chronic obstructive pulmonary disease) COVID-19 Depression Diabetes mellitus Gout Heart valve problem HTN (hypertension) Myocarditis Obesity SABRINA on CPAP Pneumonia Family History Sister Lung cancer Mother Renal cancer Other Diabetes mellitus Surgical History History of aortic valve replacement with bioprosthetic valve History of total right hip arthroplasty Hx of laparoscopic gastric banding Previous back surgery Social History Household Members: Family Household Members Other:: lives with her and her son Housing: House Do you presently have visiting nurse or other home services: No Alcohol intake: never Patient Tobacco Use Status: Never used Tobacco Use of substances other than those prescribed or required for medical reasons: No Advance Directives: No Advance Directives Information Provided: No service: No Current occupational status: retired [employer] Allergies Allergy/AdvReac Type Severity Reaction Status Date / Time No Known Allergies Allergy Unverified 11/17/19 14:34 [No Known Allergies*] Active Medications: Current Medications Generic Name Dose Route Start Last Admin Trade Name Freq PRN Reason Stop Dose Admin Ceftriaxone Sodium 1 gm/ 50 mls @ 100 mls/hr 08/17/20 18:00 08/17/20 18:38 Sodium Chloride IV 100 mls/hr Q12H ERICH Administration Home Medications Medication Instructions Recorded Confirmed Last Taken Type Trelegy Ellipta 1 inh INHALATION DAILY 01/30/20 08/17/20 Unknown History allopurinol 100 mg PO DAILY 01/30/20 08/17/20 Unknown History bupropion HCl 150 mg PO DAILY@1700 01/30/20 08/17/20 Unknown History bupropion HCl 300 mg PO DAILY 01/30/20 08/17/20 Unknown History duloxetine 60 mg PO DAILY 01/30/20 08/17/20 Unknown History furosemide 80 mg PO DAILY 01/30/20 08/17/20 Unknown History omeprazole 20 mg PO DAILY 01/30/20 08/17/20 Unknown History potassium chloride 10 meq PO DAILY 01/30/20 08/17/20 Unknown History rosuvastatin 20 mg PO DAILY 01/30/20 08/17/20 Unknown History apixaban 5 mg PO BID 08/17/20 08/17/20 Unknown History diltiazem HCl [DILT-XR] 180 mg PO DAILY 08/17/20 08/17/20 Unknown History lisinopril 20 mg PO 08/18/20 Unknown History Physical Exam Vital Signs and Narrative: Vital Signs: Last Vital Signs Temp 97.4 F 08/17/20 13:51 Pulse 73 08/17/20 14:00 Resp 16 08/17/20 14:00 BP 124/46 L 08/17/20 14:00 Pulse Ox 100 08/17/20 17:43 Oxygen Flow Rate 2 08/17/20 17:43 Body Mass Index 32.0 Const: General: cooperative and no acute distress Orientation/consciousness: patient oriented x3 Eyes: General: appearance normal, both eyes and all related structures Resp: Effort & Inspection: normal respiratory effort and able to speak in complete sentences Cardio: Rate: regular rate Rhythm: regular rhythm GI: Palpation (GI): Soft to palpation Auscultation: normal bowel sounds Skin: General skin exam: no rashes or lesions noted Neuro: General: patient oriented x3 Cognition (Neuro): normal cognition Extrem: General: Yes normal to inspection and Yes no pedal edema Results Labs CBC and Chem 7: 08/17/20 13:59 08/17/20 13:59 Labs: Laboratory Results - last 24 hr 08/17/20 08/17/20 08/17/20 13:59 13:59 14:15 MCV 91.1 MCH 28.2 MCHC 31.0 RDW 15.2 Plt Count 415 H MPV 9.8 Immature Gran % (Auto) 0.8 H Neut % (Auto) 71.2 Lymph % (Auto) 17.6 L [place] % (Auto) 8.9 Eos % (Auto) 1.1 Baso % (Auto) 0.4 Lymph # (Auto) 2.2 [place] # (Auto) 1.1 Eos # (Auto) 0.1 Baso # (Auto) 0.1 Abs Immat Gran (auto) 0.10 H Absolute Neuts (auto) 8.8 H Absolute Nucleated RBC 0.000 Nucleated RBC % (auto) 0.0 PT 18.7 H D INR 1.6 H APTT 38.8 H Anion Gap 15 Estim Creat Clear Calc 40.0 Estimated GFR 46 Random Glucose 100 D Lactic Acid Calcium 10.0 D Total Bilirubin 0.4 AST 14 D ALT 9 Alkaline Phosphatase 204 H D Troponin I High Sens B-Natriuretic Peptide Total Protein 6.7 Albumin 4.0 D Stool Occult Blood Coronavirus (PCR) Influenza Type A (PCR) Influenza Type B (PCR) RSV RNA Qual (PCR) 08/17/20 08/17/20 08/17/20 14:15 14:15 15:13 MCV MCH MCHC RDW Plt Count MPV Immature Gran % (Auto) Neut % (Auto) Lymph % (Auto) [place] % (Auto) Eos % (Auto) Baso % (Auto) Lymph # (Auto) [place] # (Auto) Eos # (Auto) Baso # (Auto) Abs Immat Gran (auto) Absolute Neuts (auto) Absolute Nucleated RBC Nucleated RBC % (auto) PT INR APTT Anion Gap Estim Creat Clear Calc Estimated GFR Random Glucose Lactic Acid Calcium Total Bilirubin AST ALT Alkaline Phosphatase Troponin I High Sens 7.0 B-Natriuretic Peptide 90 Total Protein Albumin Stool Occult Blood NEGATIVE Coronavirus (PCR) NEGATIVE Influenza Type A (PCR) NEGATIVE Influenza Type B (PCR) NEGATIVE RSV RNA Qual (PCR) NEGATIVE 08/17/20 18:20 MCV MCH MCHC RDW Plt Count MPV Immature Gran % (Auto) Neut % (Auto) Lymph % (Auto) [place] % (Auto) Eos % (Auto) Baso % (Auto) Lymph # (Auto) [place] # (Auto) Eos # (Auto) Baso # (Auto) Abs Immat Gran (auto) Absolute Neuts (auto) Absolute Nucleated RBC Nucleated RBC % (auto) PT INR APTT Anion Gap Estim Creat Clear Calc Estimated GFR Random Glucose Lactic Acid 1.5 Calcium Total Bilirubin AST ALT Alkaline Phosphatase Troponin I High Sens B-Natriuretic Peptide Total Protein Albumin Stool Occult Blood Coronavirus (PCR) Influenza Type A (PCR) Influenza Type B (PCR) RSV RNA Qual (PCR) Imaging Radiologist's Impressions: Impressions Chest X-Ray 08/17/20 12:35 IMPRESSION: There is patchy atelectatic or infiltrate changes in left lower lobe posterior segment. Rest of the lungs. A left lower lobe infiltrate was seen on the previous CTA chest 01/30/2020. Chest CTA 08/17/20 15:35 IMPRESSION: Small right lower lobe pulmonary emboli. This is in similar location to pulmonary emboli seen January 2020 and appears decreased in size. It is uncertain whether this represents chronic changes from pulmonary emboli or could represent an acute pulmonary emboli. New airspace disease in the right upper lobe and left lower lobe probably representing pneumonia. Dilated fluid filled esophagus. Possible aspiration should be considered. Gastric lap band. Post-CABG changes. VTE: positive Findings were communicated September by telephone on 08/17/2020 at 5:00 PM. Assessment and Plan (1) Pneumonia: Status: Acute (2) Pulmonary embolism: Qualifiers: Acute cor pulmonale presence: without acute cor pulmonale Chronicity: acute Pulmonary embolism type: unspecified Qualified Code(s): I26.99 - Other pulmonary embolism without acute cor pulmonale Status: Acute (3) Hemoptysis: Status: Acute 79-year-old female with extensive past medical history as mentioned above who presents to the hospital with complaints of cough, hemoptysis found to have pneumonia # community-acquired pneumonia - CT angiogram shows evidence of pneumonia with possible aspiration - patient denies any aspiration event at home, no difficulty with swallowing - at this time will start her with broad-spectrum antibiotics - follow cultures - follow respiratory status # hemoptysis - reports few episodes of bloody phlegm production as well as 1 episode of wet clot - patient is hemodynamically stable - hemoglobin stable with no drop in hematocrit - no tachycardia or tachypnea suggestive of acute blood loss anemia - blood clot may be secondary to her recent PE in January as well as pneumonia - at this time will resume her apixaban given the stable hemoglobin as well as her history of AFib and PE - consult pulmonology # PE - CT angiogram shows a PE in the same exact location as the previous 1 so there is most likely chronic - will continue apixaban # CHF - no evidence of exacerbation - continue Lasix as well as diltiazem # of hyperlipidemia - continue statin # COPD - on home baseline oxygen - will continue home inhalers - treat pneumonia DVT prophylaxis: Apixaban Quality Stroke Does the patient have a stroke diagnosis?: No VTE Prior VTE?: Yes VTE Risk Level:: Medical - moderate - high VTE Device Contraindication: Treatment Not Indicated VTE Drug Contraindication: N/A - Med Ordered
[2020-08-17 21:45] VITALS: BP 109/40; PULSE 59; RESP 19; TEMP 37.7; O2SAT 97
[2020-08-17 22:00] VITALS: BP 131/46; PULSE 60; RESP 16
[2020-08-18] VITALS (10 sets, daily range): BP systolic 114–168; BP diastolic 43–59; PULSE 58–74; RESP 16–19; TEMP 36.9–37.8; O2SAT 96–100
[2020-08-18] MEDS: guaiFENesin DM 100/10/5 ML 5 ML SYRUP PO ×2 (00:22→09:28)
[2020-08-18] MEDS: 0.9 % Sodium Chloride Flush 3 ML SYRINGE IVFLUSH ×3 (05:50→21:43)
[2020-08-18] MEDS: Omeprazole 20 MG CAPSULE.DR PO (05:52)
[2020-08-18] MEDS: Apixaban 5 MG TABLET PO ×2 (05:52→21:43)
[2020-08-18] MEDS: Lactated Ringers 1,000 ML 50 ML IVCONT (05:53)
--- NOTE | 2020-08-18 07:20 | PC.NURSE ---
report taken from ABDOULAYE Lopez. Pt in bed resting quietly, pt awaiting bed assignment.
[2020-08-18 07:30] LABS: MANUAL DIFF FLAG NO
[2020-08-18 07:38] LABS: Basophils Percent Auto 0.3 % (0-2); Eosinophils Absolute Auto 0.1 X10*3/uL (0.0-0.4); Eosinophils Percent Auto 1.2 % (0-4); Hematocrit 31.5 % (37-47); Hemoglobin 9.9 g/dl (12.0-16.0); Imm Gran Abs Auto 0.06 X10*3/uL (0.00-0.03); Imm Gran Pct Auto 0.5 % (0.0-0.4); Lymphocytes Absolute Auto 2.5 X10*3/uL (1.2-4.9); Mean Corpuscular HGB Conc 31.4 g/dl (31.0-35.0); Mean Corpuscular Volume 89.2 fL (80-98); Mean Platelet Volume 9.9 fL (9.4-12.3); Monocytes Absolute Auto 1.2 X10*3/uL (0.1-1.2); Monocytes Percent Auto 10.1 % (2-11); Neutrophils Absolute Auto 7.6 X10*3/uL (2.0-8.3); Neutrophils Percent Auto 65.9 % (45-73); Platelet Count 378 X10*3/uL (160-400); Red Blood Count 3.53 X10*6/uL (4.20-5.50); Red Cell Distribution Width 15.2 % (11.0-16.0); White Blood Count 11.6 X10*3/uL (4.8-10.8)
[2020-08-18 08:14] LABS: Anion Gap 12 (12-20); Blood Urea Nitrogen 13 mg/dL (9-16); Calcium 9.6 mg/dL (8.4-10.2); Carbon Dioxide 31 mmol/L (22-29); Chloride 103 mmol/L (96-108); Creatinine Clr Calc Pharmacy 45.9; Estimated Glomerular Filt Rate 54; Glucose Random 82 mg/dL (60-115); Sodium 142 mmol/L (135-145)
[2020-08-18] MEDS: allopurinoL 100 MG TABLET PO (09:22)
[2020-08-18] MEDS: DULoxetine HCl 60 MG CAPSULE.DR PO (09:22)
[2020-08-18] MEDS: Furosemide 40 MG TABLET PO (09:22)
[2020-08-18] MEDS: buPROPion HCl XL 300 MG TAB.ER.24H PO (09:22)
[2020-08-18] MEDS: dilTIAZem HCL CD 180 MG CAP.ER.24H PO (09:23)
[2020-08-18] MEDS: Atorvastatin Calcium 80 MG TABLET PO (09:23)
[2020-08-18] MEDS: Benzonatate 100 MG CAPSULE PO (10:46)
--- NOTE | 2020-08-18 11:39 | P.PNIM_ITS ---
Subjective Subjective Date of Service: 08/18/20 Interval History: the patient was seen and evaluated this morning Laying in bed, feels comfortable overall, No recurrent episodes of hemoptysis overnight Denies any fever, chills or chest pain No reported other overnight events. Systemic review: No fever, chills or weakness No chest pain, palpitation Increasing baseline shortness of breath but reporting episodes of coughing No abdominal pain, nausea or vomiting No urinary symptoms No any rash or wounds Physical Exam Vital Signs: Vital Signs: Last Vital Signs Temp 99.8 F 08/17/20 21:45 Pulse 62 08/18/20 09:23 Resp 18 08/18/20 07:12 BP 168/59 H 08/18/20 09:23 Pulse Ox 98 08/18/20 05:08 Oxygen Flow Rate 2 08/17/20 17:43 Body Mass Index 32.0 Const: Other: Constitutional : Alert, oriented, not in distress Neck : Normal inspection, Supple Cardiovascular : RRR, S1 S2, no lower extremity edema Respiratory : Good bilateral air entry, basal fine crackles, no wheezes or rhonchi Gastrointestinal: soft, lax, Normal bowel sounds, Non tender Skin : Warm/Dry, No rash Neurological : Alert & oriented x3, No focal deficit Objective Data Current Medications Generic Name Dose Route Start Last Admin Trade Name Freq PRN Reason Stop Dose Admin Acetaminophen 650 mg 08/18/20 05:08 Acetaminophen 325 Mg Tablet PO Q6H PRN Pain, Mild (Pain Scale 1-3) Allopurinol 100 mg 08/18/20 09:00 08/18/20 09:22 Allopurinol 100 Mg Tablet PO 100 mg DAILY ERIHC Administration Apixaban 5 mg 08/18/20 05:08 08/18/20 05:52 Apixaban 5 Mg Tablet PO 5 mg BID ERICH Administration Atorvastatin Calcium 80 mg 08/18/20 09:00 08/18/20 09:23 Atorvastatin Calcium 80 Mg Tablet PO 80 mg DAILY ERICH Administration Benzonatate 100 mg 08/17/20 20:20 08/18/20 10:46 Benzonatate 100 Mg Capsule PO 100 mg TID PRN Administration Cough Bupropion HCl 150 mg 08/18/20 17:00 Bupropion Hcl Xl 150 Mg Tab.Er.24h PO DAILY@1700 [facility] Bupropion HCl 300 mg 08/18/20 09:00 08/18/20 09:22 Bupropion Hcl Xl 300 Mg Tab.Er.24h PO 300 mg DAILY ERICH Administration Diltiazem HCl 180 mg 08/18/20 09:00 08/18/20 09:23 Diltiazem Hcl Cd 180 Mg Cap.Er.24h PO 180 mg DAILY ERICH Administration Protocol Docusate Sodium 100 mg 08/18/20 05:08 Docusate Sodium 100 Mg Capsule PO DAILY PRN Constipation Duloxetine HCl 60 mg 08/18/20 09:00 08/18/20 09:22 Duloxetine Hcl 60 Mg Capsule. PO 60 mg DAILY ERICH Administration Furosemide 40 mg 08/18/20 09:00 08/18/20 09:22 Furosemide 40 Mg Tablet PO 40 mg DAILY ERICH Administration Protocol Guaifenesin/Dextromethorphan 5 ml 08/17/20 20:20 08/18/20 09:28 Guaifenesin Dm 100/10/5 Ml 5 Ml Syrup PO 5 ml Q4H PRN Administration cough Azithromycin 500 mg/ Sodium 250 mls @ 125 mls/hr 08/18/20 20:00 Chloride IV Q24H ERICH Ceftriaxone Sodium 1 gm/ 50 mls @ 100 mls/hr 08/18/20 18:00 Sodium Chloride IV Q24H ERICH Lactated Ringer's 1,000 mls @ 50 mls/hr 08/18/20 05:08 08/18/20 05:53 Lr IVCONT 50 mls/hr .Q20H ERICH Administration Non-Formulary Medication 1 inhalation 08/18/20 09:00 [id number] [Trelegy Ellipta] INHALE DAILY [facility] Omeprazole 20 mg 08/18/20 06:30 08/18/20 05:52 Omeprazole 20 Mg Capsule. PO 20 mg DAILY@0630 ERICH Administration Ondansetron HCl 4 mg 08/18/20 05:08 Ondansetron Hcl 4 Mg/2 Ml Vial IVPUSH Q8H PRN Nausea and Vomiting Potassium Chloride 10 meq 08/18/20 09:00 08/18/20 09:22 Potassium Chloride Er 10 Meq Capsule.Er PO 10 meq DAILY ERICH Administration Sodium Chloride 3 ml 08/18/20 05:08 08/18/20 08:35 0.9 % Sodium Chloride Flush 3 Ml Syringe IVFLUSH Not Given QSHIFT [facility] Labs CBC & Chem 7: 08/18/20 06:52 08/18/20 06:52 Labs: Laboratory Results - last 24 hr 08/17/20 08/17/20 08/17/20 13:59 13:59 14:15 WBC 12.3 H RBC 3.93 L Hgb 11.1 L Hct 35.8 L MCV 91.1 MCH 28.2 MCHC 31.0 RDW 15.2 Plt Count 415 H MPV 9.8 Immature Gran % (Auto) 0.8 H Neut % (Auto) 71.2 Lymph % (Auto) 17.6 L [place] % (Auto) 8.9 Eos % (Auto) 1.1 Baso % (Auto) 0.4 Lymph # (Auto) 2.2 [place] # (Auto) 1.1 Eos # (Auto) 0.1 Baso # (Auto) 0.1 Abs Immat Gran (auto) 0.10 H Absolute Neuts (auto) 8.8 H Absolute Nucleated RBC 0.000 Nucleated RBC % (auto) 0.0 PT 18.7 H D INR 1.6 H APTT 38.8 H Sodium 143 Potassium 5.1 Chloride 102 Carbon Dioxide 31 H Anion Gap 15 BUN 15 Creatinine 1.15 Estim Creat Clear Calc 40.0 Estimated GFR 46 Random Glucose 100 D Lactic Acid Calcium 10.0 D Total Bilirubin 0.4 AST 14 D ALT 9 Alkaline Phosphatase 204 H D Troponin I High Sens B-Natriuretic Peptide Total Protein 6.7 Albumin 4.0 D Stool Occult Blood Coronavirus (PCR) Influenza Type A (PCR) Influenza Type B (PCR) RSV RNA Qual (PCR) 08/17/20 08/17/20 08/17/20 14:15 14:15 15:13 WBC RBC Hgb Hct MCV MCH MCHC RDW Plt Count MPV Immature Gran % (Auto) Neut % (Auto) Lymph % (Auto) [place] % (Auto) Eos % (Auto) Baso % (Auto) Lymph # (Auto) [place] # (Auto) Eos # (Auto) Baso # (Auto) Abs Immat Gran (auto) Absolute Neuts (auto) Absolute Nucleated RBC Nucleated RBC % (auto) PT INR APTT Sodium Potassium Chloride Carbon Dioxide Anion Gap BUN Creatinine Estim Creat Clear Calc Estimated GFR Random Glucose Lactic Acid Calcium Total Bilirubin AST ALT Alkaline Phosphatase Troponin I High Sens 7.0 B-Natriuretic Peptide 90 Total Protein Albumin Stool Occult Blood NEGATIVE Coronavirus (PCR) NEGATIVE Influenza Type A (PCR) NEGATIVE Influenza Type B (PCR) NEGATIVE RSV RNA Qual (PCR) NEGATIVE 08/17/20 08/18/20 08/18/20 18:20 06:52 06:52 WBC 11.6 H RBC 3.53 L Hgb 9.9 L Hct 31.5 L MCV 89.2 MCH 28.0 MCHC 31.4 RDW 15.2 Plt Count 378 MPV 9.9 Immature Gran % (Auto) 0.5 H Neut % (Auto) 65.9 Lymph % (Auto) 22.0 [place] % (Auto) 10.1 Eos % (Auto) 1.2 Baso % (Auto) 0.3 Lymph # (Auto) 2.5 [place] # (Auto) 1.2 Eos # (Auto) 0.1 Baso # (Auto) 0.0 Abs Immat Gran (auto) 0.06 H Absolute Neuts (auto) 7.6 Absolute Nucleated RBC 0.000 Nucleated RBC % (auto) 0.0 PT INR APTT Sodium 142 Potassium 4.0 D Chloride 103 Carbon Dioxide 31 H Anion Gap 12 BUN 13 Creatinine 1.00 Estim Creat Clear Calc 45.9 Estimated GFR 54 Random Glucose 82 Lactic Acid 1.5 Calcium 9.6 Total Bilirubin AST ALT Alkaline Phosphatase Troponin I High Sens B-Natriuretic Peptide Total Protein Albumin Stool Occult Blood Coronavirus (PCR) Influenza Type A (PCR) Influenza Type B (PCR) RSV RNA Qual (PCR) Quality Stroke Does the patient have a stroke diagnosis?: No VTE Prior VTE?: Yes VTE Risk Level:: Medical - moderate - high VTE Device Contraindication: Treatment Not Indicated VTE Drug Contraindication: N/A - Med Ordered Assessment and Plan (1) Pneumonia: Status: Acute (2) Pulmonary embolism: Status: Acute (3) Hemoptysis: Status: Acute Assessment and Plan: 79-year-old female with extensive past medical history as mentioned above who presents to the hospital with complaints of cough, hemoptysis found to have pneumonia # community-acquired pneumonia CT angiogram shows evidence of pneumonia with possible aspiration patient denies any aspiration event at home no difficulty with swallowing Continue azithromycin and ceftriaxone follow cultures follow respiratory status # hemoptysis reports few episodes of bloody phlegm production as well as 1 episode of wet clot hemoglobin stable with no drop in hematocrit blood clot may be secondary to her recent PE in January as well as pneumonia Continue apixaban given the stable hemoglobin as well as her history of AFib and PE consult pulmonology # PE CT angiogram shows a PE in the same exact location as the previous 1 will continue apixaban for no and discussed the need of change the medication if consider failed # CHF no evidence of exacerbation continue Lasix as well as diltiazem # of hyperlipidemia continue statin # COPD on home baseline oxygen will continue home inhalers treat pneumonia DVT prophylaxis Apixaban
--- NOTE | 2020-08-18 12:25 | PM.CNPUL ---
History of Present Illness History of Present Illness Consult date: 08/18/20 Chief complaint: CAP, Hemotysis Narrative: This is a 79-year-old female with an extensive past medical history including CHF, A fib,CAD s/p CABG, COPD, COVID-19 infection in January of 2020, PE on apixaban, HTN, NSTEMI, who presents to the hospital with complaints of persistent cough as well as shortness of breath. Patient also noticed multiple episodes of bloody phlegm as well as clots. Patient reports she had been coughing for the past 1 week with cold symptoms including runny nose, some sputum production, that initially was just green in color but yesterday she developed three episodes of small nose bleeds that spontaneously resolved. She presented to the ED with worsening hemoptysis and shortness of breath. Had a repeat CT chest personally reviewed by me demonstrating persistent RLL PE along with new areas of airspace disease along with pulmonary nodules. She is feeling better now. No more evidence of hemoptysis. Review of Systems Constitutional: Constitutional: Denies night sweats ENT: Denies change in voice, Denies lip swelling, Denies mouth pain, Reports nasal congestion, Reports nasal discharge and Denies tongue swelling Cardiovascular: Cardiovascular: Denies chest pain and Reports dyspnea Respiratory: Respiratory: Denies chest congestion, Reports cough, Reports hemoptysis and Reports dyspnea Gastrointestinal: Gastrointestinal: Denies abdominal pain Musculoskeletal: Musculoskeletal: Denies no additional musculoskeletal complaints Neurologic: Denies Neuro-related abnormal movements Psychiatric: Psychiatric: Denies no additional psychiatric complaints Hematologic/Lymphatic: Hematologic/Lymphatic: Denies easy bleeding and Denies lymphadenopathy Allergic/Immunologic: Allergic/Immunologic: Denies lip swelling and Denies tongue swelling [facility] Past Medical History Medical History (Updated 08/18/20 @ 12:30 by Victor Hugo Brown MD) Acute respiratory failure CHF (congestive heart failure) COPD (chronic obstructive pulmonary disease) COPD (chronic obstructive pulmonary disease) COVID-19 Depression Diabetes mellitus Gout Heart valve problem HTN (hypertension) Myocarditis Obesity SABRINA on CPAP Pneumonia Pulmonary nodules Family History Family History Sister Lung cancer Mother Renal cancer Other Diabetes mellitus Surgical History Surgical History History of aortic valve replacement with bioprosthetic valve History of total right hip arthroplasty Hx of laparoscopic gastric banding Previous back surgery Social History Social History Household Members: Family Household Members Other:: lives with her and her son Housing: House Do you presently have visiting nurse or other home services: No Alcohol intake: never Patient Tobacco Use Status: Never used Tobacco Use of substances other than those prescribed or required for medical reasons: No Advance Directives: No Advance Directives Information Provided: No service: No Current occupational status: retired [employer] Allergies Allergy/AdvReac Type Severity Reaction Status Date / Time No Known Allergies Allergy Unverified 11/17/19 14:34 [No Known Allergies*] Active Medications: Current Medications Generic Name Dose Route Start Last Admin Trade Name Freq PRN Reason Stop Dose Admin Acetaminophen 650 mg 08/18/20 05:08 Acetaminophen 325 Mg Tablet PO Q6H PRN Pain, Mild (Pain Scale 1-3) Allopurinol 100 mg 08/18/20 09:00 08/18/20 09:22 Allopurinol 100 Mg Tablet PO 100 mg DAILY ERICH Administration Apixaban 5 mg 08/18/20 05:08 08/18/20 05:52 Apixaban 5 Mg Tablet PO 5 mg BID ERICH Administration Atorvastatin Calcium 80 mg 08/18/20 09:00 08/18/20 09:23 Atorvastatin Calcium 80 Mg Tablet PO 80 mg DAILY ERICH Administration Benzonatate 100 mg 08/17/20 20:20 08/18/20 10:46 Benzonatate 100 Mg Capsule PO 100 mg TID PRN Administration Cough Bupropion HCl 150 mg 08/18/20 17:00 Bupropion Hcl Xl 150 Mg Tab.Er.24h PO DAILY@1700 ERICH Bupropion HCl 300 mg 08/18/20 09:00 08/18/20 09:22 Bupropion Hcl Xl 300 Mg Tab.Er.24h PO 300 mg DAILY ERICH Administration Diltiazem HCl 180 mg 08/18/20 09:00 08/18/20 09:23 Diltiazem Hcl Cd 180 Mg Cap.Er.24h PO 180 mg DAILY ERICH Administration Protocol Docusate Sodium 100 mg 08/18/20 05:08 Docusate Sodium 100 Mg Capsule PO DAILY PRN Constipation Duloxetine HCl 60 mg 08/18/20 09:00 08/18/20 09:22 Duloxetine Hcl 60 Mg Capsule. PO 60 mg DAILY ERICH Administration Furosemide 40 mg 08/18/20 09:00 08/18/20 09:22 Furosemide 40 Mg Tablet PO 40 mg DAILY [facility] Administration Protocol Guaifenesin/Dextromethorphan 5 ml 08/17/20 20:20 08/18/20 09:28 Guaifenesin Dm 100/10/5 Ml 5 Ml Syrup PO 5 ml Q4H PRN Administration cough Azithromycin 500 mg/ Sodium 250 mls @ 125 mls/hr 08/18/20 20:00 Chloride IV Q24H ERICH Ceftriaxone Sodium 1 gm/ 50 mls @ 100 mls/hr 08/18/20 18:00 Sodium Chloride IV Q24H ERICH Lactated Ringer's 1,000 mls @ 50 mls/hr 08/18/20 05:08 08/18/20 05:53 Lr IVCONT 50 mls/hr .Q20H ERICH Administration Non-Formulary Medication 1 inhalation 08/18/20 09:00 [id number] [Trelegy Ellipta] INHALE DAILY [facility] Omeprazole 20 mg 08/18/20 06:30 08/18/20 05:52 Omeprazole 20 Mg Capsule. PO 20 mg DAILY@0630 [facility] Administration Ondansetron HCl 4 mg 08/18/20 05:08 Ondansetron Hcl 4 Mg/2 Ml Vial IVPUSH Q8H PRN Nausea and Vomiting Potassium Chloride 10 meq 08/18/20 09:00 08/18/20 09:22 Potassium Chloride Er 10 Meq Capsule.Er PO 10 meq DAILY [facility] Administration Sodium Chloride 3 ml 08/18/20 05:08 08/18/20 08:35 0.9 % Sodium Chloride Flush 3 Ml Syringe IVFLUSH Not Given QSHIFT [facility] Home Medications Medication Instructions Recorded Confirmed Last Taken Type Trelegy Ellipta 1 inh INHALATION DAILY 01/30/20 08/17/20 Unknown History allopurinol 100 mg PO DAILY 01/30/20 08/17/20 Unknown History bupropion HCl 150 mg PO DAILY@1700 01/30/20 08/17/20 Unknown History bupropion HCl 300 mg PO DAILY 01/30/20 08/17/20 Unknown History duloxetine 60 mg PO DAILY 01/30/20 08/17/20 Unknown History furosemide 40 mg PO DAILY 01/30/20 08/18/20 Unknown History omeprazole 20 mg PO DAILY 01/30/20 08/17/20 Unknown History potassium chloride 10 meq PO DAILY 01/30/20 08/17/20 Unknown History rosuvastatin 20 mg PO DAILY 01/30/20 08/17/20 Unknown History apixaban 5 mg PO BID 08/17/20 08/17/20 Unknown History diltiazem HCl [DILT-XR] 180 mg PO DAILY 08/17/20 08/17/20 Unknown History lisinopril 20 mg PO DAILY 08/18/20 08/18/20 Unknown History Physical Exam Vital Signs: Vital Signs: Last Vital Signs Temp 99.8 F 08/17/20 21:45 Pulse 62 08/18/20 09:23 Resp 18 08/18/20 07:12 BP 168/59 H 08/18/20 09:23 Pulse Ox 98 08/18/20 05:08 Oxygen Flow Rate 2 08/17/20 17:43 Body Mass Index 32.0 Const: General: alert HENMT: General nose exam: No nasal polyps present, Normal nasal mucous membranes and turbinates present and Nasal discharge present (post membrane) mucoid Neck: Neck: Yes normal visual inspection, Yes full ROM and Yes no lymphadenopathy Chest: Chest palpation & inspection: normal inspection of the chest Resp: Auscultation: diminished lung sounds Cardio: Rate: regular rate Rhythm: regular rhythm Heart sounds: S1 normal heart sound present and S2 normal heart sound present GI: Palpation (GI): Soft to palpation and nontender Auscultation: normal bowel sounds Skin: General skin exam: rashes and/or lesions noted Results Laboratory Findings CBC and BMP: 08/18/20 06:52 08/18/20 06:52 ABG, PT/INR, D-dimer: PT/INR, D-dimer PT 18.7 SEC (10.8-13.0) H D 08/17/20 14:15 INR 1.6 (0.9-1.1) H 08/17/20 14:15 Abnormal lab findings: Abnormal Labs 08/17/20 08/17/20 08/17/20 13:59 13:59 14:15 WBC 12.3 H RBC 3.93 L Hgb 11.1 L Hct 35.8 L Plt Count 415 H Immature Gran % (Auto) 0.8 H Lymph % (Auto) 17.6 L Abs Immat Gran (auto) 0.10 H Absolute Neuts (auto) 8.8 H PT 18.7 H D INR 1.6 H APTT 38.8 H Carbon Dioxide 31 H Alkaline Phosphatase 204 H D 08/18/20 08/18/20 06:52 06:52 WBC 11.6 H RBC 3.53 L Hgb 9.9 L Hct 31.5 L Plt Count Immature Gran % (Auto) 0.5 H Lymph % (Auto) Abs Immat Gran (auto) 0.06 H Absolute Neuts (auto) PT INR APTT Carbon Dioxide 31 H Alkaline Phosphatase Assessment and Plan (1) Hemoptysis: Status: Acute (2) Pneumonia: Qualifiers: Pneumonia type: aspiration pneumonia Aspiration pneumonia type: due to gastric secretions Laterality: bilateral Lung location: unspecified part of lung Qualified Code(s): J69.0 - Pneumonitis due to inhalation of food and vomit Status: Acute (3) Pulmonary embolism: Qualifiers: Acute cor pulmonale presence: without acute cor pulmonale Chronicity: acute Pulmonary embolism type: unspecified Qualified Code(s): I26.99 - Other pulmonary embolism without acute cor pulmonale Status: Acute (4) COPD (chronic obstructive pulmonary disease): Qualifiers: COPD type: chronic bronchitis Chronic bronchitis type: simple Qualified Code(s): J41.0 - Simple chronic bronchitis Status: Inactive (5) Pulmonary nodules: Status: Acute (6) COPD (chronic obstructive pulmonary disease): Qualifiers: COPD type: chronic bronchitis Chronic bronchitis type: mixed simple and mucopurulent Qualified Code(s): J41.8 - Mixed simple and mucopurulent chronic bronchitis Status: Acute The patient has evidence of chronic thromboembolic disease. Therefore will require life long anticoagulation REC -Continue Eliquis -Monitor for any further hemoptysis -FU with ENT as outpt -Continue Antibiotics to treat for 8 days -Serial Imaging to f/u pulmonary nodules -continue oxygen, may benefit from humidification - -Barium swallow (has a gastric band which could be the problem) - Procedures Date of Service Date of Service: 08/18/20
[2020-08-18] MEDS: lisinopriL 20 MG TABLET PO (14:42)
[2020-08-18] MEDS: cefTRIAXone sodium 1 GM in 0.9 % Sodium Chloride 50 ML IV (16:57)
[2020-08-18] MEDS: buPROPion HCl XL 150 MG TAB.ER.24H PO (16:57)
[2020-08-18] MEDS: Azithromycin 500 MG in 0.9 % Sodium Chloride 250 ML 125 MG IV (21:45)
[2020-08-19] MEDS: Lactated Ringers 1,000 ML 50 ML IVCONT (01:31)
[2020-08-19] MEDS: guaiFENesin DM 100/10/5 ML 5 ML SYRUP PO (01:31)
[2020-08-19] MEDS: Benzonatate 100 MG CAPSULE PO (01:31)
[2020-08-19 03:34] VITALS: BP 140/73; PULSE 67; RESP 18; TEMP 36.4; O2SAT 99
[2020-08-19] MEDS: Omeprazole 20 MG CAPSULE.DR PO (06:13)
[2020-08-19 06:31] LABS: Hematocrit 31.4 % (37-47); Hemoglobin 9.9 g/dl (12.0-16.0); Mean Corpuscular HGB Conc 31.5 g/dl (31.0-35.0); Mean Corpuscular Hemoglobin 28.3 pg (27.0-33.0); Mean Corpuscular Volume 89.7 fL (80-98); Mean Platelet Volume 9.8 fL (9.4-12.3); Platelet Count 366 X10*3/uL (160-400); Red Cell Distribution Width 15.2 % (11.0-16.0); White Blood Count 12.5 X10*3/uL (4.8-10.8)
[2020-08-19 06:57] LABS: Anion Gap 12 (12-20); Blood Urea Nitrogen 14 mg/dL (9-16); Calcium 9.4 mg/dL (8.4-10.2); Carbon Dioxide 32 mmol/L (22-29); Chloride 104 mmol/L (96-108); Creatinine Clr Calc Pharmacy 45.9; Estimated Glomerular Filt Rate 54; Glucose Random 86 mg/dL (60-115); Potassium 4.6 mmol/L (3.3-5.1); Sodium 143 mmol/L (135-145)
[2020-08-19 07:25] VITALS: BP 140/61; PULSE 56; RESP 20; TEMP 37.1; O2SAT 100
[2020-08-19] MEDS: DULoxetine HCl 60 MG CAPSULE.DR PO (08:57)
[2020-08-19] MEDS: lisinopriL 20 MG TABLET PO (08:58)
[2020-08-19] MEDS: allopurinoL 100 MG TABLET PO (08:58)
[2020-08-19] MEDS: dilTIAZem HCL CD 180 MG CAP.ER.24H PO (08:59)
[2020-08-19] MEDS: Apixaban 5 MG TABLET PO ×2 (08:59→20:22)
[2020-08-19] MEDS: Furosemide 40 MG TABLET PO (08:59)
[2020-08-19] MEDS: Atorvastatin Calcium 80 MG TABLET PO (08:59)
[2020-08-19] MEDS: buPROPion HCl XL 300 MG TAB.ER.24H PO (08:59)
[2020-08-19] MEDS: 0.9 % Sodium Chloride Flush 3 ML SYRINGE IVFLUSH ×2 (09:00→15:35)
--- NOTE | 2020-08-19 11:22 | MHC.CM.PN ---
met with pt who is independent and living with her pt does not feel she will require cm intervention when she is dcd
[2020-08-19 11:26] VITALS: BP 117/56; PULSE 70; RESP 20; TEMP 36.2; O2SAT 95
--- NOTE | 2020-08-19 12:38 | HO.PM.IMPN ---
Subjective Subjective Date of Service: 08/19/20 Interval History: The patient was seen and evaluated this morning Laying in bed, feels comfortable overall, the improved to breathe the and oxygen requirement decreased No recurrent episodes of hemoptysis overnight Denies any fever, chills or chest pain No reported other overnight events. Systemic review: No fever, chills or weakness No chest pain, palpitation Increasing baseline shortness of breath but reporting episodes of coughing No abdominal pain, nausea or vomiting No urinary symptoms No any rash or wounds Physical Exam Vital Signs: Vital Signs: Last Vital Signs Temp 97.1 F 08/19/20 11:26 Pulse 70 08/19/20 11:26 Resp 20 08/19/20 11:26 BP 117/56 L 08/19/20 11:26 Pulse Ox 95 08/19/20 11:26 Oxygen Flow Rate 2 08/17/20 17:43 Body Mass Index 32.0 Const: Other: Constitutional : Alert, oriented, not in distress Neck : Normal inspection, Supple Cardiovascular : RRR, S1 S2, no lower extremity edema Respiratory : Good bilateral air entry, basal fine crackles, no wheezes or rhonchi Gastrointestinal: soft, lax, Normal bowel sounds, Non tender Skin : Warm/Dry, No rash Neurological : Alert & oriented x3, No focal deficit Objective Data Current Medications Generic Name Dose Route Start Last Admin Trade Name Freq PRN Reason Stop Dose Admin Acetaminophen 650 mg 08/18/20 05:08 Acetaminophen 325 Mg Tablet PO Q6H PRN Pain, Mild (Pain Scale 1-3) Allopurinol 100 mg 08/18/20 09:00 08/19/20 08:58 Allopurinol 100 Mg Tablet PO 100 mg DAILY [facility] Administration Apixaban 5 mg 08/18/20 05:08 08/19/20 08:59 Apixaban 5 Mg Tablet PO 5 mg BID [facility] Administration Atorvastatin Calcium 80 mg 08/18/20 09:00 08/19/20 08:59 Atorvastatin Calcium 80 Mg Tablet PO 80 mg DAILY [facility] Administration Benzonatate 100 mg 08/17/20 20:20 08/19/20 01:31 Benzonatate 100 Mg Capsule PO 100 mg TID PRN Administration Cough Bupropion HCl 150 mg 08/18/20 17:00 08/18/20 16:57 Bupropion Hcl Xl 150 Mg Tab.Er.24h PO 150 mg DAILY@1700 [facility] Administration Bupropion HCl 300 mg 08/18/20 09:00 08/19/20 08:59 Bupropion Hcl Xl 300 Mg Tab.Er.24h PO 300 mg DAILY [facility] Administration Diltiazem HCl 180 mg 08/18/20 09:00 08/19/20 08:59 Diltiazem Hcl Cd 180 Mg Cap.Er.24h PO 180 mg DAILY [facility] Administration Protocol Docusate Sodium 100 mg 08/18/20 05:08 Docusate Sodium 100 Mg Capsule PO DAILY PRN Constipation Duloxetine HCl 60 mg 08/18/20 09:00 08/19/20 08:57 Duloxetine Hcl 60 Mg Capsule. PO 60 mg DAILY [facility] Administration Furosemide 40 mg 08/18/20 09:00 08/19/20 08:59 Furosemide 40 Mg Tablet PO 40 mg DAILY [facility] Administration Protocol Guaifenesin/Dextromethorphan 5 ml 08/17/20 20:20 08/19/20 01:31 Guaifenesin Dm 100/10/5 Ml 5 Ml Syrup PO 5 ml Q4H PRN Administration cough Azithromycin 500 mg/ Sodium 250 mls @ 125 mls/hr 08/18/20 20:00 08/19/20 00:20 Chloride IV Infused Q24H [facility] Infusion Ceftriaxone Sodium 1 gm/ 50 mls @ 100 mls/hr 08/18/20 18:00 08/18/20 17:42 Sodium Chloride IV Infused Q24H [facility] Infusion Lisinopril 20 mg 08/18/20 13:25 08/19/20 08:58 Lisinopril 20 Mg Tablet PO 20 mg DAILY [facility] Administration Protocol Non-Formulary Medication 1 inhalation 08/18/20 09:00 [id number] [Trelegy Ellipta] INHALE DAILY [facility] Omeprazole 20 mg 08/18/20 06:30 08/19/20 06:13 Omeprazole 20 Mg Capsule. PO 20 mg DAILY@0630 [facility] Administration Ondansetron HCl 4 mg 08/18/20 05:08 Ondansetron Hcl 4 Mg/2 Ml Vial IVPUSH Q8H PRN Nausea and Vomiting Potassium Chloride 10 meq 08/18/20 09:00 08/19/20 08:58 Potassium Chloride Er 10 Meq Capsule.Er PO 10 meq DAILY [facility] Administration Sodium Chloride 3 ml 08/18/20 05:08 08/19/20 09:00 0.9 % Sodium Chloride Flush 3 Ml Syringe IVFLUSH 3 ml QSHIFT [facility] Administration Labs CBC & Chem 7: 08/19/20 05:53 08/19/20 05:53 Labs: Laboratory Results - last 24 hr 08/19/20 08/19/20 05:53 05:53 WBC 12.5 H RBC 3.50 L Hgb 9.9 L Hct 31.4 L MCV 89.7 MCH 28.3 MCHC 31.5 RDW 15.2 Plt Count 366 MPV 9.8 Absolute Nucleated RBC 0.000 Nucleated RBC % (auto) 0.0 Sodium 143 Potassium 4.6 Chloride 104 Carbon Dioxide 32 H Anion Gap 12 BUN 14 Creatinine 1.00 Estim Creat Clear Calc 45.9 Estimated GFR 54 Random Glucose 86 Calcium 9.4 Microbiology Microbiology Results: Microbiology 08/17/20 18:33 Blood Culture - Preliminary Blood - Venous No growth after 24 hours. 08/17/20 18:20 Blood Culture - Preliminary Blood - Venous No growth after 24 hours. Quality Stroke Does the patient have a stroke diagnosis?: No VTE Prior VTE?: Yes VTE Risk Level:: Medical - moderate - high VTE Device Contraindication: Treatment Not Indicated VTE Drug Contraindication: N/A - Med Ordered Assessment and Plan (1) Pneumonia: Status: Acute (2) Pulmonary embolism: Status: Acute (3) Hemoptysis: Status: Acute Assessment and Plan: 79-year-old female with extensive past medical history as mentioned above who presents to the hospital with complaints of cough, hemoptysis found to have pneumonia # community-acquired pneumonia CT angiogram shows evidence of pneumonia with possible aspiration patient denies any aspiration event at home no difficulty with swallowing Continue azithromycin and ceftriaxone D3 follow cultures follow respiratory status # hemoptysis reports few episodes of bloody phlegm production as well as 1 episode of wet clot hemoglobin stable with no drop in hematocrit blood clot may be secondary to her recent PE in January as well as pneumonia Continue apixaban given the stable hemoglobin as well as her history of AFib and PE Pulmonology input appreciated, continue antibiotics and Eliquis # PE CT angiogram shows a PE in the same exact location as the previous 1 will continue apixaban # CHF no evidence of exacerbation continue Lasix as well as diltiazem # of hyperlipidemia continue statin # COPD on home baseline oxygen will continue home inhalers treat pneumonia DVT prophylaxis Apixaban
--- NOTE | 2020-08-19 15:36 | PC.NURSE ---
wound to patient's coccyx noted. Patient states she has had the wound since December and goes to the wound clinic for treatment. changes dressings every other day at home with santyl ointment and foam dressing. Patient states the wound had started as a pilonidal cyst that ruptured from a fall. Picture sent to Dr. Pandey and wound care nurse. Consult entered for wound care center. Dressing changed per order.
[2020-08-19 16:00] VITALS: BP 115/57; PULSE 60; RESP 19; TEMP 37.1; O2SAT 91
[2020-08-19] MEDS: cefTRIAXone sodium 1 GM in 0.9 % Sodium Chloride 50 ML IV (17:16)
[2020-08-19] MEDS: buPROPion HCl XL 150 MG TAB.ER.24H PO (17:16)
[2020-08-19 19:57] VITALS: BP 131/59; PULSE 77; RESP 19; TEMP 36.3; O2SAT 98
[2020-08-19] MEDS: Azithromycin 500 MG in 0.9 % Sodium Chloride 250 ML 125 MG IV (20:22)
[2020-08-19 23:18] VITALS: BP 132/60; PULSE 67; RESP 18; TEMP 37; O2SAT 92
[2020-08-20] VITALS (7 sets, daily range): BP systolic 105–151; BP diastolic 47–69; PULSE 58–79; RESP 18–20; TEMP 36.4–37.1; O2SAT 91–96
[2020-08-20] MEDS: 0.9 % Sodium Chloride Flush 3 ML SYRINGE IVFLUSH ×4 (01:33→20:40)
[2020-08-20] MEDS: Omeprazole 20 MG CAPSULE.DR PO (05:35)
[2020-08-20 06:44] LABS: Hematocrit 32.2 % (37-47); Hemoglobin 10.1 g/dl (12.0-16.0); Mean Corpuscular HGB Conc 31.4 g/dl (31.0-35.0); Mean Corpuscular Hemoglobin 28.1 pg (27.0-33.0); Mean Corpuscular Volume 89.4 fL (80-98); Platelet Count 395 X10*3/uL (160-400); Red Cell Distribution Width 15.2 % (11.0-16.0); White Blood Count 11.9 X10*3/uL (4.8-10.8)
[2020-08-20] MEDS: allopurinoL 100 MG TABLET PO (07:53)
[2020-08-20] MEDS: dilTIAZem HCL CD 180 MG CAP.ER.24H PO (07:53)
[2020-08-20] MEDS: DULoxetine HCl 60 MG CAPSULE.DR PO (07:53)
[2020-08-20] MEDS: Apixaban 5 MG TABLET PO ×2 (07:53→20:40)
[2020-08-20] MEDS: buPROPion HCl XL 300 MG TAB.ER.24H PO (07:53)
[2020-08-20] MEDS: lisinopriL 20 MG TABLET PO (07:54)
[2020-08-20] MEDS: Furosemide 40 MG TABLET PO (07:54)
[2020-08-20] MEDS: Atorvastatin Calcium 80 MG TABLET PO (07:54)
[2020-08-20] MEDS: Collagenase Clostridium Hist. 30 GM TUBE 1 APPL TOPICAL (07:59)
--- NOTE | 2020-08-20 10:18 | MHC.CLN ---
RE: CONSULT PO INTAKE 100% X 1 MEAL DIET RX: 2200DM CHOPPED-APPROPRIATE NSG NOTED: Patient states the wound had started as a pilonidal cyst that ruptured from a fall PT WITH O/A ON COCCYX BUT NOT PRESSURE IN ORIGIN NUTRITION RISK IS LOW CONTINUE TO MONITOR PO INTAKE
--- NOTE | 2020-08-20 11:18 | MHC.CM.PN ---
Per ROUNDS discussion, Patient is having a Barrium study and pending results, may be able to return home today; CM will follow.
--- NOTE | 2020-08-20 13:40 | P.CONWO_ITS ---
History of Present Illness Data of Consult Service Date: 08/20/20 Requesting physician: Candie Pandey Primary Care Provider: CHER Tate HPI Reason for consult: coccyx wound 72-year-old female diagnosed with COVID in January of 2020, recovered now hospitalized with shortness of breath and multiple comorbidities including COPD, CHF, history of NSTEMI and recent pulmonary embolus. She does not correlate her wound with prolonged hospitalization in January. In fact, she has a history of pilonidal cyst and is treated at [facility]. This is being treated with Santyl and debridement. It is moderately painful. No associated fever. Review of Systems Review of Systems: Shortness of breath is better. Denies fever. No chest pain. Appetite is good. Taking plenty of protein. Yes all other systems are reviewed and are negative [facility] Medical History (Updated 08/20/20 @ 13:49 by CHER Doan) Acute respiratory failure CHF (congestive heart failure) COPD (chronic obstructive pulmonary disease) COPD (chronic obstructive pulmonary disease) COVID-19 Depression Diabetes mellitus Gout Heart valve problem HTN (hypertension) Myocarditis Obesity SABRINA on CPAP Pneumonia Pulmonary nodules Family History Sister Lung cancer Mother Renal cancer Other Diabetes mellitus Surgical History History of aortic valve replacement with bioprosthetic valve History of total right hip arthroplasty Hx of laparoscopic gastric banding Previous back surgery Social History Household Members: Family Household Members Other:: lives with her and her son Housing: House Do you presently have visiting nurse or other home services: No Alcohol intake: never Patient Tobacco Use Status: Never used Tobacco service: No Current occupational status: retired Meds Allergies Allergy/AdvReac Type Severity Reaction Status Date / Time No Known Allergies Allergy Unverified 11/17/19 14:34 [No Known Allergies*] Active Medications: Current Medications Generic Name Dose Route Start Last Admin Trade Name Freq PRN Reason Stop Dose Admin Acetaminophen 650 mg 08/18/20 05:08 Acetaminophen 325 Mg Tablet PO Q6H PRN Pain, Mild (Pain Scale 1-3) Allopurinol 100 mg 08/18/20 09:00 08/20/20 07:53 Allopurinol 100 Mg Tablet PO 100 mg DAILY [facility] Administration Apixaban 5 mg 08/18/20 05:08 08/20/20 07:53 Apixaban 5 Mg Tablet PO 5 mg BID ERICH Administration Atorvastatin Calcium 80 mg 08/18/20 09:00 08/20/20 07:54 Atorvastatin Calcium 80 Mg Tablet PO 80 mg DAILY [facility] Administration Benzonatate 100 mg 08/17/20 20:20 08/19/20 01:31 Benzonatate 100 Mg Capsule PO 100 mg TID PRN Administration Cough Bupropion HCl 150 mg 08/18/20 17:00 08/19/20 17:16 Bupropion Hcl Xl 150 Mg Tab.Er.24h PO 150 mg DAILY@1700 [facility] Administration Bupropion HCl 300 mg 08/18/20 09:00 08/20/20 07:53 Bupropion Hcl Xl 300 Mg Tab.Er.24h PO 300 mg DAILY [facility] Administration Collagenase 1 appl 08/20/20 09:00 08/20/20 07:59 Collagenase Clostridium Hist. 30 Gm Tube TOPICAL 1 appl DAILY [facility] Administration Protocol Diltiazem HCl 180 mg 08/18/20 09:00 08/20/20 07:53 Diltiazem Hcl Cd 180 Mg Cap.Er.24h PO 180 mg DAILY [facility] Administration Protocol Docusate Sodium 100 mg 08/18/20 05:08 Docusate Sodium 100 Mg Capsule PO DAILY PRN Constipation Duloxetine HCl 60 mg 08/18/20 09:00 08/20/20 07:53 Duloxetine Hcl 60 Mg Capsule.Dr PO 60 mg DAILY [facility] Administration Fluticasone/Vilanterol 1 puff 08/21/20 08:00 Fluticasone/Vilanterol 100/25 Blst.W.Dev INHALE RDAILY [facility] Furosemide 40 mg 08/18/20 09:00 08/20/20 07:54 Furosemide 40 Mg Tablet PO 40 mg DAILY [facility] Administration Protocol Guaifenesin/Dextromethorphan 5 ml 08/17/20 20:20 08/19/20 01:31 Guaifenesin Dm 100/10/5 Ml 5 Ml Syrup PO 5 ml Q4H PRN Administration cough Azithromycin 500 mg/ Sodium 250 mls @ 125 mls/hr 08/18/20 20:00 08/19/20 22:30 Chloride IV Infused Q24H [facility] Infusion Ceftriaxone Sodium 1 gm/ 50 mls @ 100 mls/hr 08/18/20 18:00 08/19/20 18:15 Sodium Chloride IV Infused Q24H [facility] Infusion Lisinopril 20 mg 08/18/20 13:25 08/20/20 07:54 Lisinopril 20 Mg Tablet PO 20 mg DAILY [facility] Administration Protocol Omeprazole 20 mg 08/18/20 06:30 08/20/20 05:35 Omeprazole 20 Mg Capsule.Dr PO 20 mg DAILY@0630 [facility] Administration Ondansetron HCl 4 mg 08/18/20 05:08 Ondansetron Hcl 4 Mg/2 Ml Vial IVPUSH Q8H PRN Nausea and Vomiting Potassium Chloride 10 meq 08/18/20 09:00 08/20/20 07:53 Potassium Chloride Er 10 Meq Capsule.Er PO 10 meq DAILY [facility] Administration Sodium Chloride 3 ml 08/18/20 05:08 08/20/20 07:53 0.9 % Sodium Chloride Flush 3 Ml Syringe IVFLUSH 3 ml QSHIFT [facility] Administration Tiotropium [place] 1 puff 08/21/20 08:00 Tiotropium [place] 18 Mcg Cap.W.Dev INHALE RDAILY [facility] Home Medications Medication Instructions Recorded Confirmed Last Taken Type Trelegy Ellipta 1 inh INHALATION DAILY 01/30/20 08/17/20 Unknown History allopurinol 100 mg PO DAILY 01/30/20 08/17/20 Unknown History bupropion HCl 150 mg PO DAILY@1700 01/30/20 08/17/20 Unknown History bupropion HCl 300 mg PO DAILY 01/30/20 08/17/20 Unknown History duloxetine 60 mg PO DAILY 01/30/20 08/17/20 Unknown History furosemide 40 mg PO DAILY 01/30/20 08/18/20 Unknown History omeprazole 20 mg PO DAILY 01/30/20 08/17/20 Unknown History potassium chloride 10 meq PO DAILY 01/30/20 08/17/20 Unknown History rosuvastatin 20 mg PO DAILY 01/30/20 08/17/20 Unknown History apixaban 5 mg PO BID 08/17/20 08/17/20 Unknown History diltiazem HCl [DILT-XR] 180 mg PO DAILY 08/17/20 08/17/20 Unknown History lisinopril 20 mg PO DAILY 08/18/20 08/18/20 Unknown History Physical Exam Vital Signs and Narrative: Vital Signs: Last Vital Signs Temp 98.3 F 08/20/20 12:00 Pulse 66 08/20/20 12:00 Resp 18 08/20/20 12:00 BP 134/64 08/20/20 12:00 Pulse Ox 93 08/20/20 12:00 Oxygen Flow Rate 2 08/17/20 17:43 Body Mass Index 32.0 Wound is deep within the gluteal cleft. Is directly over the coccyx. Periwound is blanching. This is not associated with pressure in anyway. No bruising of the gluteal to suggest trauma. No evidence of abscess or infection. No purulence or fluctuance. Results Labs CBC and Chem 7: 08/20/20 05:40 08/19/20 05:53 Labs: Laboratory Results - last 24 hr 08/20/20 05:40 MCV 89.4 MCH 28.1 MCHC 31.4 RDW 15.2 Plt Count 395 MPV 10.0 Absolute Nucleated RBC 0.000 Nucleated RBC % (auto) 0.0 Assessment and Plan (1) Non-pressure chronic ulcer of skin of other sites with fat layer exposed: Status: Acute 80-year-old female with comorbidities as above recovering from community acquired pneumonia with long-standing history of coccygeal ulcer treated at [facility], appropriately with topical Santyl. Her comes in to the hospital daily. He has been doing the wound care. I think this is fine. We do not have Santyl on the formulary. Make an order that the patient can use her own medication. Followup with Dr. Trevino at [facility] wound [facility] after discharge.
--- NOTE | 2020-08-20 14:19 | HO.PM.IMPN ---
Subjective Subjective Date of Service: 08/20/20 Interval History: The patient was seen and evaluated this morning Laying in bed, feels better today, episode of hemoptysis yesterday but nothing overnight Did barium swallow test this morning Denies any fever, chills or chest pain No reported other overnight events. Systemic review: No fever, chills or weakness No chest pain, palpitation Increasing baseline shortness of breath but reporting episodes of coughing No abdominal pain, nausea or vomiting No urinary symptoms No any rash or wounds Physical Exam Vital Signs: Vital Signs: Last Vital Signs Temp 98.3 F 08/20/20 12:00 Pulse 66 08/20/20 12:00 Resp 18 08/20/20 12:00 BP 134/64 08/20/20 12:00 Pulse Ox 93 08/20/20 12:00 Oxygen Flow Rate 2 08/17/20 17:43 Body Mass Index 32.0 Const: Other: Constitutional : Alert, oriented, not in distress Neck : Normal inspection, Supple Cardiovascular : RRR, S1 S2, no lower extremity edema Respiratory : Good bilateral air entry, basal fine crackles bilaterally, no wheezes or rhonchi Gastrointestinal: soft, lax, Normal bowel sounds, Non tender Skin : Warm/Dry, stage III Coccyx ulcer Neurological : Alert & oriented x3, No focal deficit Objective Data Current Medications Generic Name Dose Route Start Last Admin Trade Name Freq PRN Reason Stop Dose Admin Acetaminophen 650 mg 08/18/20 05:08 Acetaminophen 325 Mg Tablet PO Q6H PRN Pain, Mild (Pain Scale 1-3) Allopurinol 100 mg 08/18/20 09:00 08/20/20 07:53 Allopurinol 100 Mg Tablet PO 100 mg DAILY [facility] Administration Apixaban 5 mg 08/18/20 05:08 08/20/20 07:53 Apixaban 5 Mg Tablet PO 5 mg BID ERICH Administration Atorvastatin Calcium 80 mg 08/18/20 09:00 08/20/20 07:54 Atorvastatin Calcium 80 Mg Tablet PO 80 mg DAILY [facility] Administration Benzonatate 100 mg 08/17/20 20:20 08/19/20 01:31 Benzonatate 100 Mg Capsule PO 100 mg TID PRN Administration Cough Bupropion HCl 150 mg 08/18/20 17:00 08/19/20 17:16 Bupropion Hcl Xl 150 Mg Tab.Er.24h PO 150 mg DAILY@1700 ERICH Administration Bupropion HCl 300 mg 08/18/20 09:00 08/20/20 07:53 Bupropion Hcl Xl 300 Mg Tab.Er.24h PO 300 mg DAILY [facility] Administration Collagenase 1 appl 08/20/20 09:00 08/20/20 07:59 Collagenase Clostridium Hist. 30 Gm Tube TOPICAL 1 appl DAILY [facility] Administration Protocol Diltiazem HCl 180 mg 08/18/20 09:00 08/20/20 07:53 Diltiazem Hcl Cd 180 Mg Cap.Er.24h PO 180 mg DAILY [facility] Administration Protocol Docusate Sodium 100 mg 08/18/20 05:08 Docusate Sodium 100 Mg Capsule PO DAILY PRN Constipation Duloxetine HCl 60 mg 08/18/20 09:00 08/20/20 07:53 Duloxetine Hcl 60 Mg Capsule. PO 60 mg DAILY [facility] Administration Fluticasone/Vilanterol 1 puff 08/21/20 08:00 Fluticasone/Vilanterol 100/25 Blst.W.Dev INHALE RDAILY [facility] Furosemide 40 mg 08/18/20 09:00 08/20/20 07:54 Furosemide 40 Mg Tablet PO 40 mg DAILY [facility] Administration Protocol Guaifenesin/Dextromethorphan 5 ml 08/17/20 20:20 08/19/20 01:31 Guaifenesin Dm 100/10/5 Ml 5 Ml Syrup PO 5 ml Q4H PRN Administration cough Azithromycin 500 mg/ Sodium 250 mls @ 125 mls/hr 08/18/20 20:00 08/19/20 22:30 Chloride IV Infused Q24H [facility] Infusion Ceftriaxone Sodium 1 gm/ 50 mls @ 100 mls/hr 08/18/20 18:00 08/19/20 18:15 Sodium Chloride IV Infused Q24H [facility] Infusion Lisinopril 20 mg 08/18/20 13:25 08/20/20 07:54 Lisinopril 20 Mg Tablet PO 20 mg DAILY [facility] Administration Protocol Omeprazole 20 mg 08/18/20 06:30 08/20/20 05:35 Omeprazole 20 Mg Capsule. PO 20 mg DAILY@0630 [facility] Administration Ondansetron HCl 4 mg 08/18/20 05:08 Ondansetron Hcl 4 Mg/2 Ml Vial IVPUSH Q8H PRN Nausea and Vomiting Potassium Chloride 10 meq 08/18/20 09:00 06/21/21 07:53 Potassium Chloride Er 10 Meq Capsule.Er PO 10 meq DAILY [facility] Administration Sodium Chloride 3 ml 08/18/20 05:08 08/20/20 07:53 0.9 % Sodium Chloride Flush 3 Ml Syringe IVFLUSH 3 ml QSHIFT ERICH Administration Tiotropium [place] 1 puff 08/21/20 08:00 Tiotropium [place] 18 Mcg Cap.W.Dev INHALE RDAILY [facility] Labs CBC & Chem 7: 08/20/20 05:40 08/19/20 05:53 Labs: Laboratory Results - last 24 hr 08/20/20 05:40 WBC 11.9 H RBC 3.60 L Hgb 10.1 L Hct 32.2 L MCV 89.4 MCH 28.1 MCHC 31.4 RDW 15.2 Plt Count 395 MPV 10.0 Absolute Nucleated RBC 0.000 Nucleated RBC % (auto) 0.0 Microbiology Microbiology Results: Microbiology 08/17/20 18:33 Blood Culture - Preliminary Blood - Venous No growth after 48 hours. 08/17/20 18:20 Blood Culture - Preliminary Blood - Venous No growth after 48 hours. Quality Stroke Does the patient have a stroke diagnosis?: No VTE Prior VTE?: Yes VTE Risk Level:: Medical - moderate - high VTE Device Contraindication: Treatment Not Indicated VTE Drug Contraindication: N/A - Med Ordered Assessment and Plan (1) Pneumonia: Status: Acute (2) Pulmonary embolism: Status: Acute (3) Hemoptysis: Status: Acute Assessment and Plan: 79-year-old female with extensive past medical history as mentioned above who presents to the hospital with complaints of cough, hemoptysis found to have pneumonia # community-acquired pneumonia CT angiogram shows evidence of pneumonia with possible aspiration patient denies any aspiration event at home no difficulty with swallowing Continue azithromycin and ceftriaxone D3 Negative cultures Value swallow done, pending report follow respiratory status # hemoptysis reports few episodes of bloody phlegm production as well as 1 episode of wet clot hemoglobin stable with no drop in hematocrit blood clot may be secondary to her recent PE in January as well as pneumonia Continue apixaban given the stable hemoglobin as well as her history of AFib and PE Pulmonology input appreciated, continue antibiotics and Eliquis # PE CT angiogram shows a PE in the same exact location as the previous 1 will continue apixaban # stage III Coccyx ulcer Wound care input appreciated Continue wound care # CHF no evidence of exacerbation continue Lasix as well as diltiazem # of hyperlipidemia continue statin # COPD on home baseline oxygen will continue home inhalers treat pneumonia DVT prophylaxis Apixaban
[2020-08-20] MEDS: cefTRIAXone sodium 1 GM in 0.9 % Sodium Chloride 50 ML IV (17:55)
[2020-08-20] MEDS: buPROPion HCl XL 150 MG TAB.ER.24H PO (17:55)
[2020-08-20] MEDS: Azithromycin 500 MG in 0.9 % Sodium Chloride 250 ML 125 MG IV (20:39)
[2020-08-21] VITALS (7 sets, daily range): BP systolic 152–161; BP diastolic 67–87; PULSE 55–66; RESP 18–20; TEMP 35.9–36.4; O2SAT 92–96
[2020-08-21] MEDS: Benzonatate 100 MG CAPSULE PO (00:50)
--- NOTE | 2020-08-21 01:47 | PM.EVENT ---
Event Note Date of Service: 08/21/20 Event Note: Diarrhea: pt on Antibiotics; Sent Stool studies including C diff
[2020-08-21] MEDS: Omeprazole 20 MG CAPSULE.DR PO (06:06)
[2020-08-21] MEDS: Fluticasone/Vilanterol 100/25 BLST.W.DEV 1 PUFF INHALE (07:35)
[2020-08-21] MEDS: 0.9 % Sodium Chloride Flush 3 ML SYRINGE IVFLUSH (08:25)
[2020-08-21] MEDS: dilTIAZem HCL CD 180 MG CAP.ER.24H PO (08:26)
[2020-08-21] MEDS: Apixaban 5 MG TABLET PO (08:26)
[2020-08-21] MEDS: buPROPion HCl XL 300 MG TAB.ER.24H PO (08:27)
[2020-08-21] MEDS: Furosemide 40 MG TABLET PO (08:27)
[2020-08-21] MEDS: DULoxetine HCl 60 MG CAPSULE.DR PO (08:27)
[2020-08-21] MEDS: lisinopriL 20 MG TABLET PO (08:27)
[2020-08-21] MEDS: Atorvastatin Calcium 80 MG TABLET PO (08:27)
[2020-08-21] MEDS: allopurinoL 100 MG TABLET PO (08:27)
[2020-08-21] MEDS: Collagenase Clostridium Hist. 30 GM TUBE 1 APPL TOPICAL (08:28)
--- NOTE | 2020-08-21 11:15 | MHC.CLN ---
F/U PT CONSUMING 100% OF MEALS DIET RX: 2200DM CHOPPED-APPROPRIATE WILL ADD TIALIA TO [facility]
--- NOTE | 2020-08-21 11:54 | MHC.CM.PN ---
pt dcd home with no services pts family to transport
[2020-08-21 12:33] LABS: Leukocytes Stool Qualitative NEGATIVE (NEGATIVE)
[2020-08-21 14:25] LABS: CDIFF Ag Negative (Negative); CDIFF Internal ctrl Dots and bkg OK (V); CDiff Toxin Negative (Negative)
--- NOTE | 2020-08-21 14:37 | PC.NURSE ---
Skin assessment completed today. Stage 3 coccyx PU, stable. Applying Santyl and foam dressing. No other skin issues noted.
--- NOTE | 2020-08-21 14:54 | P.DS_ITS ---
DS: Providers Provider Date of Service: 08/21/20 Date of admission: 08/18/20 05:08 Primary care physician: CHER Tate Consults: 08/18/20 05:08 Consult to Pulmonology Routine Consulting Provider: Roxanna Naik Reason for consultation: hemoptysis w hx of PE Has provider been notified: No 08/19/20 14:19 Consult to Wound Care Routine Consulting Provider: Susannah King Reason for consultation: Coccyx wound; Pilonidal cyst for your kind eval DS: Diagnosis Discharge Diagnosis (1) Pneumonia: Status: Acute (2) Pulmonary embolism: Status: Acute (3) Hemoptysis: Status: Acute (4) Non-pressure chronic ulcer of skin of other sites with fat layer exposed: Status: Acute DS: Medications Discharge Medications Home Medications: Home Medications Medication Instructions Recorded Confirmed Trelegy Ellipta 1 inh INHALATION DAILY 01/30/20 08/17/20 allopurinol 100 mg PO DAILY 01/30/20 08/17/20 bupropion HCl 150 mg PO DAILY@1700 01/30/20 08/17/20 bupropion HCl 300 mg PO DAILY 01/30/20 08/17/20 duloxetine 60 mg PO DAILY 01/30/20 08/17/20 furosemide 40 mg PO DAILY 01/30/20 08/18/20 omeprazole 20 mg PO DAILY 01/30/20 08/17/20 potassium chloride 10 meq PO DAILY 01/30/20 08/17/20 rosuvastatin 20 mg PO DAILY 01/30/20 08/17/20 apixaban 5 mg PO BID 08/17/20 08/17/20 diltiazem HCl [DILT-XR] 180 mg PO DAILY 08/17/20 08/17/20 lisinopril 20 mg PO DAILY 08/18/20 08/18/20 Previous Rx's Medication Instructions Recorded azithromycin 500 mg PO DAILY #6 tab 08/21/20 benzonatate 100 mg PO TID PRN #30 cap 08/21/20 cefuroxime axetil 500 mg PO BID #12 tab 08/21/20 DS: Summary Hospital Course Hospital Course: Admission note HPI This is a 79-year-old female with an extensive past medical history including CHF, A fib,CAD s/p CABG, COPD, COVID-19 infection in January of 2020, PE on apixaban, HTN, NSTEMI, who presents to the hospital with complaints of persistent cough as well as shortness of breath. Patient also noticed multiple episodes of bloody phlegm as well as clots. Patient reports she had been coughing for the past 1 week with cold symptoms including runny nose, some sputum production, that initially was just green in color but yesterday she developed three episodes of small nose bleeds that spontaneously resolved. This a.m. around 2:23 a.m. patient felt something in her throat, cough turned up and found a large half upon size solid wet clot, she then had 2-3 episodes of bloody phlegm through the day that were small, reports that he has chronically been short of breath with no worsening, denies any melena, no blood in stool, no abdominal pain, she has had fevers at home around 100, denies any headache or change in vision, no chest pain, no palpitations. Patient is on baseline oxygen of 2-3 L at home. Patient denies any vomiting with no difficulty swallowing or episodes of aspiration. On arrival to the ED patient vitals significant for a temp of 97.5?, heart rate of 78, respiratory rate of 20, blood pressure was 65/70, satting 100% on 3 L of oxygen which is around her baseline Labs on arrival are significant for WBC count of 12.3, hemoglobin of 11.1, hematocrit 35.8 PT of 18.7, INR of 1.6, PTT of 38.8, BUN of 15, creatinine of 1.15, otherwise unremarkable. Chest CT angiogram showed small right lower lobe pulmonary emboli, this is in similar location to pulmonary emboli seen in January 2020 and appears decreased in size, it is uncertain whether this represents chronic changes from pulmonary emboli occurred present and acute pulmonary emboli, new airspace disease in the right upper lobe and left lower lobe probably representing pneumonia. Hospital course the patient was admitted to the hospital for evaluation of hemoptysis. A CTA of the chest was consistent with pulmonary embolism at the same location of the most recent PE last year along with changes suggestive of pneumonia. She was treated with IV antibiotics of azithromycin and ceftriaxone with resumption of her home Eliquis dose. Evaluated by finance consultant Dr. Brown who recommended to continue anti biotics and to take blood thinners for the rest of her life for recurrence of the PE. A barium swallow study was done showing no deformities in the esophagus but a proximal distension of the part of the stomach above the gastric band that she placed 10 years ago for weight loss causing picture of reflux and distension of the fundus of the stomach. Advised to follow-up with her surgeon for either removal or adjust the the location of the band. Hemoptysis thought to be a result of sided epistaxis given the patient description but still possibly a result of the PE or the pneumonia. No major bleeding was noticed as she had 2 episodes of small amount of hemoptysis inpatient. She was on room her and did not require any oxygen supplement and was able to ambulate freely with no reported dyspnea. Evaluated by the wound care team for stage III coccyx ulcer with local care. Time Spent with Patient Time attestation: Total time spent providing and/or coordinating discharge services: Discharge coordination time: Greater than 30 minutes Quality: Stroke Does the patient have a stroke diagnosis?: No Physical Exam Vital Signs: Vital Signs: Last Vital Signs Temp 97.6 F 08/21/20 10:58 Pulse 62 08/21/20 10:58 Resp 20 08/21/20 10:58 BP 152/67 H 08/21/20 10:58 Pulse Ox 94 08/21/20 10:58 Oxygen Flow Rate 2 08/17/20 17:43 Body Mass Index 32.0 Const: Other: Constitutional : Alert, oriented, not in distress Neck : Normal inspection, Supple Cardiovascular : RRR, S1 S2, no lower extremity edema Respiratory : Good bilateral air entry, no crackles, no wheezes or rhonchi Gastrointestinal: soft, lax, Normal bowel sounds, Non tender Skin : Warm/Dry, stage III Coccyx ulcer Neurological : Alert & oriented x3, No focal deficit DS: Data Data Completed and Pending Completed studies during hospitalization [Text1]: Procedures Introduction of Remdesivir Anti-infective into Peripheral Vein, Percutaneous Approach, [employer] 5 (01/30/20) Transfusion of Nonautologous Frozen Plasma into Peripheral Vein, Percutaneous Approach (01/30/20) Labs on day of discharge: Laboratory Results - last 24 hr 08/21/20 08/21/20 10:37 10:37 Stool Leukocytes, Qual NEGATIVE C. difficile Toxin A&B Negative C. difficile Antigen Negative C. difficile Interpret SEE NOTE Preliminary micro results at discharge 08/17/20 18:33 Blood Culture - Preliminary Blood - Venous No growth after 48 hours. 08/17/20 18:20 Blood Culture - Preliminary Blood - Venous No growth after 48 hours. Discharge Plan Discharge Patient Disposition: Home, Self-Care Discharge Diagnosis: Pneumonia Pulmonary embolisms Referrals: Miguel Morrison PA [Primary Care Provider] - 1 Week Discharge Medications: New benzonatate 100 mg Capsule 100 mg PO TID PRN (Reason: Cough) Qty: 30 RF: 0 cefuroxime axetil 500 mg tablet 500 mg PO BID Qty: 12 RF: 0 azithromycin 500 mg tablet 500 mg PO DAILY Qty: 6 RF: 0 Continued diltiazem HCl [DILT-XR] 180 mg capsule,ext.rel 24h degradable 180 mg PO DAILY RF: 0 apixaban 5 mg tablet 5 mg PO BID RF: 0 lisinopril 20 mg tablet 20 mg PO DAILY RF: 0 potassium chloride 10 mEq capsule, extended release 10 meq PO DAILY RF: 0 allopurinol 100 mg tablet 100 mg PO DAILY RF: 0 furosemide 80 mg tablet 40 mg PO DAILY RF: 0 omeprazole 20 mg capsule,delayed release(DR/EC) 20 mg PO DAILY RF: 0 rosuvastatin 20 mg tablet 20 mg PO DAILY RF: 0 bupropion HCl 300 mg tablet extended release 24 hr 300 mg PO DAILY RF: 0 duloxetine 60 mg capsule,delayed release(DR/EC) 60 mg PO DAILY RF: 0 Trelegy Ellipta 100-62.5-25 mcg blister with device 1 inh inhalation DAILY RF: 0 bupropion HCl 150 mg tablet extended release 24 hr 150 mg PO DAILY@1700 RF: 0 Discharge Orders: Discharge Order (Routine); Ordered 08/21/20 Ordered By: Candie Pandey Diet: advance to usual diet Activity on Discharge: As tolerated Stand Alone Forms: Patient Portal Discharge page Care Plan Goals: Read below Health Concerns: Read below Plan of Treatment: You were admitted to the hospital for evaluation of coughing blood. Images and blood work were concerning for possible pneumonia. A CTA of the chest showed lung clot at the same location as the old 1. You were treated with IV antibiotics and resumption of your blood thinner medication. You were evaluated by lung specialist who recommended treatment for the pneumonia and to take blood thinners for the rest of your life. 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 Continue azithromycin and Ceftin for 6 more days To follow-up with your surgeon regarding the stoma it band and its need to be adjusted or removed.
== END 2020-08-21 15:35 | disposition home or self-care (01) | DRG 193 ==
LOC: HO.ED 18:08 → HO.EDOVER 08-18 05:59 → HO.IMC 08-18 14:04
PROVIDERS: Hospitalist; Physician Assistant; Admitting Provider Internal Medicine; Emergency Provider Internal Medicine; PCP Physician Assistant Medical; Visit Provider Student in an Organized Health Care Education/Training Program
DX: J18.9 Pneumonia, unspecified organism (principal); L89.153 Pressure ulcer of sacral region, stage 3; J44.0 Chronic obstructive pulmonary disease with (acute) lower respiratory infection; R04.2 Hemoptysis; I27.82 Chronic pulmonary embolism; I25.10 Atherosclerotic heart disease of native coronary artery without angina pectoris; Z95.1 Presence of aortocoronary bypass graft; Z98.84 Bariatric surgery status; Z96.641 Presence of right artificial hip joint; E78.5 Hyperlipidemia, unspecified; I25.2 Old myocardial infarction; Z20.822 Contact with and (suspected) exposure to COVID-19; Z95.2 Presence of prosthetic heart valve; Z79.01 Long term (current) use of anticoagulants; Z79.899 Other long term (current) drug therapy
CPT/HCPCS: 0241U; 36415; 71045; 71275; 74220; 80048; 80053; 82272; 83605; 83880; 84484; 85025; 85027; 85610; 85730; 87040; 87045; 87046; 87324; 87449; 89055; 94640; 99285; J0456; J0696; Q9967

== ENCOUNTER 2021-04-04 18:40 | Emergency (ER) | payer MEDICARE, SELFPAY ==
[2021-04-04 18:56] VITALS: BP 156/82; PULSE 68; RESP 16; TEMP 36; O2SAT 97; BMI 34.7
[2021-04-04 20:32] VITALS: BP 140/56; PULSE 63; RESP 18; TEMP 36.6; O2SAT 98
--- NOTE | 2021-04-04 20:43 | ED_ITS ---
History of Present Illness General Chief Complaint: Epistaxis Stated Complaint: bloody nose Time Seen by Provider: 04/04/21 18:53 Source: patient Mode of arrival: ambulatory History of Present Illness HPI Narrative: 80-year-old female currently on anticoagulation who presents with and at that time with a saline spray and a salve. Patient states that her nose is longer bleeding at this time. Related Data Home Medications Medication Instructions Recorded Confirmed allopurinol 100 mg tablet 100 mg PO DAILY 01/30/20 08/17/20 bupropion HCl 150 mg 24 hr 150 mg PO DAILY@1700 01/30/20 08/17/20 tablet, extended release bupropion HCl 300 mg 24 hr 300 mg PO DAILY 01/30/20 08/17/20 tablet, extended release duloxetine 60 mg capsule,delayed 60 mg PO DAILY 01/30/20 08/17/20 release fluticasone fur. 100 mcg-umeclid 1 inh INHALATION DAILY 01/30/20 08/17/20 62.5 mcg-vilant 25 mcg inhalat.powder (Trelegy Ellipta) furosemide 80 mg tablet 40 mg PO DAILY 01/30/20 08/18/20 omeprazole 20 mg capsule,delayed 20 mg PO DAILY 01/30/20 08/17/20 release potassium chloride 10 mEq 10 meq PO DAILY 01/30/20 08/17/20 capsule,extended release rosuvastatin 20 mg tablet 20 mg PO DAILY 01/30/20 08/17/20 apixaban 5 mg tablet 5 mg PO BID 08/17/20 08/17/20 diltiazem HCl 180 mg 180 mg PO DAILY 08/17/20 08/17/20 capsule,extended release 24 hr, controlled (DILT-XR) lisinopril 20 mg tablet 20 mg PO DAILY 08/18/20 08/18/20 Previous Rx's Medication Instructions Recorded azithromycin 500 mg tablet 500 mg PO DAILY #6 tab 08/21/20 benzonatate 100 mg capsule 100 mg PO TID PRN #30 cap 08/21/20 cefuroxime axetil 500 mg tablet 500 mg PO BID #12 tab 08/21/20 Allergies Allergy/AdvReac Type Severity Reaction Status Date / Time No Known Allergies Allergy Verified 04/04/21 18:56 [No Known Allergies*] Review of Systems Verdana 4l Review of Systems: Verdana 4d Pertinent positives and Verdana 4d negatives as stated in HPI 10 point review of systems is otherwise negative. Verdana 4d PMFSH Past Medical History Source: nursing notes reviewed Medical History Acute respiratory failure CHF (congestive heart failure) COPD (chronic obstructive pulmonary disease) COPD (chronic obstructive pulmonary disease) COVID-19 Depression Diabetes mellitus Gout Heart valve problem HTN (hypertension) Myocarditis Non-pressure chronic ulcer of skin of other sites with fat layer exposed Obesity SABRINA on CPAP Pneumonia Pulmonary embolism Pulmonary nodules Surgical History History of aortic valve replacement with bioprosthetic valve History of total right hip arthroplasty Hx of laparoscopic gastric banding Previous back surgery Family History Family History Sister Lung cancer Mother Renal cancer Other Diabetes mellitus Social History Social History Household Members: Family Household Members Other:: lives with her and her son Housing: House Do you presently have visiting nurse or other home services: No Alcohol intake: never Patient Tobacco Use Status: Never used Tobacco Advance Directives: No Advance Directives Information Provided: Yes service: No Current occupational status: retired Physical Exam Verdana 4l Vital Signs: Verdana 4d Verdana 4d Vital Signs: Verdana 4d Verdana 4Bd Last Vital Signs Verdana 4d Lockstitch Binder New 4d Lockstitch Binder New 4d Temp 97.8 F 04/04/21 20:32 Lockstitch Binder New 4d Pulse 63 04/04/21 20:32 Lockstitch Binder New 4d Resp 18 04/04/21 20:32 BP 140/56 H 04/04/21 20:32 Pulse Ox 98 04/04/21 20:32 BMI result Body Mass Index 34.7 VITAL SIGNS: Reviewed. GENERAL: Well developed, well nourished, in no acute distress. HEAD: Normocephalic/atraumatic EYES: PERRLA, EOMI EARS: Ext canals without abnormality NOSE: Nares patent bilateral, no active bleeding at this time OROPHARYNX: no oral lesions noted, posterior pharynx clear but stigmata of recent bleed evident and is not currently active NECK: Supple, no adenopathy LUNGS: Normal breath sounds. No adventitious sounds or accessory muscle use. SpO2<98> CARDIOVASCULAR: Regular rate and rhythm without noted murmurs ABDOMEN: Soft, non-tender, non-distended with bowel sounds. NEUROLOGIC: Alert and oriented x 4. Course Course Course Narrative: 80-year-old female with history and clinical presentation consistent with recurrent epistaxis secondary to anticoagulation use during winter. She is currently asymptomatic will receive Afrin and be discharged home in stable condition. Discharge Plan Discharge Clinical Impression: Epistaxis Patient Disposition: Home, Self-Care Instructions: Nosebleed (ED) Additional Instructions: 1. Resume all home medications as prescribed. 2. Recommend adding a cool mist humidifier in your home, especially at your bedside while sleeping. Return to the ER for worsening symptoms. Prescriptions: No Action diltiazem HCl [DILT-XR] 180 mg capsule,ext.rel 24h degradable 180 mg PO DAILY 0RF apixaban 5 mg tablet 5 mg PO BID 0RF lisinopril 20 mg tablet 20 mg PO DAILY 0RF benzonatate 100 mg Capsule 100 mg PO TID PRN (Reason: Cough) Qty: 30 0RF cefuroxime axetil 500 mg tablet 500 mg PO BID Qty: 12 0RF azithromycin 500 mg tablet 500 mg PO DAILY Qty: 6 0RF potassium chloride 10 mEq capsule, extended release 10 meq PO DAILY 0RF allopurinol 100 mg tablet 100 mg PO DAILY 0RF furosemide 80 mg tablet 40 mg PO DAILY 0RF omeprazole 20 mg capsule,delayed release(DR/EC) 20 mg PO DAILY 0RF rosuvastatin 20 mg tablet 20 mg PO DAILY 0RF bupropion HCl 300 mg tablet extended release 24 hr 300 mg PO DAILY 0RF duloxetine 60 mg capsule,delayed release(DR/EC) 60 mg PO DAILY 0RF Trelegy Ellipta 100-62.5-25 mcg blister with device 1 inh inhalation DAILY 0RF bupropion HCl 150 mg tablet extended release 24 hr 150 mg PO DAILY@1700 0RF
[2021-04-04] MEDS: Oxymetazoline HCl 0.05 % Nasal 15 ML SPRAY 1 SPRAY NOSTRIL-B (20:48)
== END 2021-04-04 20:55 | disposition home or self-care (01) ==
LOC: HO.ED 20:48
PROVIDERS: Emergency Provider Student in an Organized Health Care Education/Training Program
DX: R04.0 Epistaxis (principal); E11.9 Type 2 diabetes mellitus without complications; I11.0 Hypertensive heart disease with heart failure; I50.9 Heart failure, unspecified; Z86.711 Personal history of pulmonary embolism; Z79.01 Long term (current) use of anticoagulants; Z95.2 Presence of prosthetic heart valve; Z79.02 Long term (current) use of antithrombotics/antiplatelets
CPT/HCPCS: 99283; 99284

== ENCOUNTER 2021-06-13 13:38 | Emergency (ER) | payer MEDICARE, SELFPAY ==
--- NOTE | ~2021-06-13 | MR_ITS ---
MRI OF THE BRAIN WITHOUT IV CONTRAST INDICATION: Altered mental status since surgery June 10. COMPARISON: Head CT 06/13/2021. TECHNIQUE: Multiplanar multisequence MR imaging of the brain was obtained without IV contrast. FINDINGS: There is no hydrocephalus, extra-axial surface collection, or herniation. There is global cerebral volume loss and there is mild chronic microangiopathy. The major flow voids at the skull base are preserved. There is no acute infarct on diffusion-weighted imaging. There is no intracranial hemorrhage on the gradient recalled echo acquisition. The midline structures are normal. The cerebellar tonsils are normally positioned. The cerebellum and brainstem are normal. The craniocervical junction is normal. Osseous marrow signal intensity is homogenous. The visualized soft tissues are unremarkable. Hyperostosis frontalis interna. MR/MR head/brain wo con IMPRESSION: - No acute intracranial findings. No acute infarcts. - There is global cerebral volume loss and there is mild chronic microangiopathy.
--- NOTE | ~2021-06-13 | CT_ITS ---
EXAMINATION: CT BRAIN. CHEST. CLINICAL INFORMATION: Heavy sedation centimeters in fusion. COMPARISON: None TECHNIQUE: 5 mm thin axial and reformatted 2 mm thin sagittal and coronal images of brain were obtained without contrast. DLP 645. Chest x-ray 1 view. FINDINGS: Brain: There is no acute intra-axial, extra-axial bleed, masses or midline shift. There is no acute infarction evolution. The lateral ventricles are symmetrical in size and configuration without enlargement. The sousa to white matter difference is maintained normal. Bone windows reveal no calvarial abnormality. There is benign hyperostosis frontalis interna. There is no scalp soft tissue abnormality. Bilateral paranasal sinuses and mastoid air cells are aerated except for minimal mucoperiosteal thickening left frontal sinus. Chest x-ray: The lungs are well-expanded and clear acute pneumonic process. Mild platelike atelectasis left lung base. The heart size and pulmonary vascularity is normal. There are median sternotomy sutures from previous intervention. CT/CT head/brain wo con IMPRESSION: Mild platelike atelectasis left lung base otherwise no acute process seen. There is no acute intracranial process seen
[2021-06-13 13:54] VITALS: BP 115/35; PULSE 68; RESP 16; TEMP 35.9; O2SAT 95; BMI 38.0
[2021-06-13 14:27] VITALS: BP 153/50; PULSE 66; RESP 14; O2SAT 98
--- NOTE | 2021-06-13 14:28 | ECG_ITS ---
Test Reason : AMS Blood Pressure : / mmHG Vent. Rate : 062 BPM Atrial Rate : 234 BPM P-R Int : 000 ms QRS Dur : 118 ms QT Int : 404 ms P-R-T Axes : 093 -61 055 degrees QTc Int : 410 ms Atrial flutter with variable A-V block Left axis deviation Pulmonary disease pattern Non-specific intra-ventricular conduction delay Minimal voltage criteria for LVH, may be normal variant ( Alonzo product ) Junctional ST depression, probably normal Abnormal ECG When compared with ECG of 31-JAN-2020 16:31, Significant changes have occurred Referred By: Tamela Saldana Electronically Signed By:Jimy Ambriz
[2021-06-13 14:46] LABS: Basophils Percent Auto 0.2 % (0-2); Eosinophils Absolute Auto 0.2 X10*3/uL (0.0-0.4); Eosinophils Percent Auto 1.1 % (0-4); Hematocrit 32.8 % (37.0-47.0); Hemoglobin 10.2 g/dl (12.0-16.0); Imm Gran Abs Auto 0.04 X10*3/uL (0.00-0.03); Imm Gran Pct Auto 0.3 % (0.0-0.4); Lymphocytes Absolute Auto 2.4 X10*3/uL (1.2-4.9); Lymphocytes Percent Auto 18.1 % (20-40); MANUAL DIFF FLAG SCAN; Mean Corpuscular HGB Conc 31.1 g/dl (31.0-35.0); Mean Corpuscular Hemoglobin 26.8 pg (27.0-33.0); Mean Corpuscular Volume 86.1 fL (80.0-98.0); Monocytes Absolute Auto 1.7 X10*3/uL (0.1-1.2); Monocytes Percent Auto 12.7 % (2-11); Neutrophils Absolute Auto 9.1 x10*3/uL (2.0-8.3); Neutrophils Percent Auto 67.6 % (45-73); Platelet Count 325 X10*3/uL (160-400); Red Blood Count 3.81 X10*6/uL (4.20-5.50); Red Cell Distribution Width 21.3 % (11.0-16.0); SCAN SMEAR FLAG 1; White Blood Count 13.5 X10*3/uL (4.8-10.8)
[2021-06-13 14:59] LABS: COVID-19 Test Negative (Negative); IDNOW Serial# 16C4AD1C
[2021-06-13 15:03] LABS: INTERNATIONAL NORM RATIO 1.7 (0.9-1.1); Prothrombin Time 19.4 SEC (9.9-13.0)
[2021-06-13 15:05] LABS: Partial Thromboplastin Time 32.8 SEC (24.1-38.0)
[2021-06-13 15:07] LABS: SLIDE REVIEW VERIFIED
--- NOTE | 2021-06-13 15:08 | PHA.MEDREC ---
Pharmacy Consult ? Medication Reconciliation Pharmacy has completed the medication reconciliation. Pt's family at bed side, confirmed medication list as well as OTC. There was some confusion about what dose of potassium pt is currently on, but ultimately son told me that she takes 40 mEq daily, but it changes. Sima Grande, PharmD
[2021-06-13 15:09] LABS: Alanine Aminotransferase 9 U/L (0-31); Albumin Level 3.8 g/dL (3.5-5.0); Alkaline Phosphatase 134 U/L (39-117); Anion Gap 15 (12-20); Aspartate Amino Transferase 20 U/L (5-31); Bilirubin Direct 0.3 mg/dL (0.0-0.5); Bilirubin Total 0.6 mg/dL (0.0-1.0); Blood Urea Nitrogen 27 mg/dL (9-16); Carbon Dioxide 28 mmol/L (22-29); Chloride 97 mmol/L (96-108); Creatinine Clr Calc Pharmacy 39.9; Estimated Glomerular Filt Rate 46; Glucose Random 81 mg/dL (60-115); Lipase 11 U/L (8-78); Potassium 3.9 mmol/L (3.3-5.1); Sodium 136 mmol/L (135-145); Total Protein 6.3 g/dL (6.5-8.0)
[2021-06-13 15:11] LABS: B Type Natriuretic Peptide 132 pg/mL (<100); Troponin-I High Sensitivity 20.6 ng/L (<3.5-17.0)
--- NOTE | 2021-06-13 15:22 | ED.GENADULT ---
HPI - General Adult General Chief complaint: General Medical Stated complaint: confusion Time Seen by Provider: 06/13/21 14:02 Source: patient Mode of arrival: ambulatory History of Present Illness HPI narrative: 80-year-old female with a past medical history of COPD on chronic O2, PE on Eliquis, diabetes, depression, gout, HTN, obesity, SABRINA on CPAP, s/p orthopedic surgery (left thumb basal joint trapeziectomy and interpositional arthroplasty using FCR tendon) on 06/10/[address] Cedillo at [facility] performed under regional and local anesthesia, presenting to the ED for AMS/increasing confusion since surgery. Son reports patient having visual hallucinations/performing on behaviors. Saw people walking in the street when she could not see the street, saw carpet moving/believed she just ate bag of Cheetos when did not, talking as if past events are the present, and picking out stuffing from splint material & throwing on floor while laughing. Patient herself does not realize she is confused. Son does report fall on Thursday off bed onto buttock, denies head trauma or LOC. Denies cough, CP/SOB, abdominal pain, fever, recent illness, abdominal pain, new medication Onset (ago): day(s) Related Data Home Medications Medication Instructions Recorded Confirmed allopurinol 100 mg tablet 100 mg PO DAILY 01/30/20 06/13/21 bupropion HCl 150 mg 24 hr tablet, 150 mg PO DAILY@1700 01/30/20 06/13/21 extended release bupropion HCl 300 mg 24 hr tablet, 300 mg PO DAILY 01/30/20 06/13/21 extended release duloxetine 60 mg capsule,delayed 60 mg PO DAILY 01/30/20 06/13/21 release fluticasone fur. 100 mcg-umeclid 1 inh INHALATION DAILY 01/30/20 06/13/21 62.5 mcg-vilant 25 mcg inhalat.powder (Trelegy Ellipta) omeprazole 20 mg capsule,delayed 20 mg PO DAILY 01/30/20 06/13/21 release potassium chloride 10 mEq 40 meq PO DAILY 01/30/20 06/13/21 capsule,extended release rosuvastatin 20 mg tablet 20 mg PO DAILY 01/30/20 06/13/21 apixaban 5 mg tablet 5 mg PO BID 08/17/20 06/13/21 diltiazem HCl 180 mg 180 mg PO DAILY 08/17/20 06/13/21 capsule,extended release 24 hr, controlled (DILT-XR) lisinopril 20 mg tablet 20 mg PO DAILY 08/18/20 06/13/21 albuterol sulfate 90 mcg/actuation 2 puff INHALATION Q6H PRN 06/13/21 06/13/21 aerosol inhaler cholecalciferol (vitamin D3) 50 50 mcg PO BEDTIME 06/13/21 06/13/21 mcg (2,000 unit) tablet docusate sodium 50 mg capsule 50 mg PO DAILY PRN 06/13/21 06/13/21 ferrous sulfate 325 mg (65 mg 325 mg PO DAILY 06/13/21 06/13/21 iron) tablet furosemide 40 mg tablet 20 mg PO DAILY@1700 06/13/21 06/13/21 furosemide 40 mg tablet 40 mg PO DAILY 06/13/21 06/13/21 Allergies Allergy/AdvReac Type Severity Reaction Status Date / Time No Known Allergies Allergy Verified 04/04/21 18:56 [No Known Allergies*] Review of Systems Review of Systems: Constitutional: No Fever, No Chills, No Fatigue, No Malaise ENT/Mouth: No Ear Pain, No Nasal Congestion, No sore throat, No Rhinorrhea, No Swallowing Difficulty Eyes: No Eye Pain, No Swelling, No Redness,No Vision Changes Cardiovascular: No Chest Pain, No SOB, No Edema, No Palpitations Respiratory: No Cough, No Sputum, No Dyspnea Gastrointestinal: No Nausea, No Vomiting, No Diarrhea, No Constipation, No Abdominal pain Genitourinary: No Dysuria, No Urinary Frequency, No Hematuria, No Flank Pain, No Urinary Flow Changes Musculoskeletal: No joint pain, No Myalgias, No Joint Swelling Skin: No Skin Lesions, No rash Neuro: No Weakness, No Numbness, No Paresthesias, No Loss of Consciousness, No Dizziness, No Headache, + confusion Psych: No Anxiety/Panic, No Depression, +VH, No Social Issues Yes all other systems are reviewed and are negative [facility] Past Medical History Attestation statement: The following information was validated with the patient. Medical History Acute respiratory failure CHF (congestive heart failure) COPD (chronic obstructive pulmonary disease) COPD (chronic obstructive pulmonary disease) COVID-19 Depression Diabetes mellitus Gout Heart valve problem HTN (hypertension) Myocarditis Non-pressure chronic ulcer of skin of other sites with fat layer exposed Obesity SABRINA on CPAP Pneumonia Pulmonary embolism Pulmonary nodules Surgical History History of aortic valve replacement with bioprosthetic valve History of total right hip arthroplasty Hx of laparoscopic gastric banding Previous back surgery Family History Family History Sister Lung cancer Mother Renal cancer Other Diabetes mellitus Social History Social History Household Members: Family Household Members Other:: lives with her and her son Housing: House Do you presently have visiting nurse or other home services: No Alcohol intake: never Patient Tobacco Use Status: Never used Tobacco Advance Directives: No Advance Directives Information Provided: Yes service: No Current occupational status: retired Physical Exam ED Vital Signs: Vital Signs - 24 hr 06/13/21 13:54 06/13/21 14:27 06/13/21 16:31 Temperature 96.7 F L 98.9 F Pulse Rate 68 66 62 Respiratory Rate 16 14 13 Blood Pressure 115/35 L 153/50 H 118/47 L Pulse Oximetry 95 98 99 06/13/21 20:12 Temperature 100.3 F Pulse Rate 58 Respiratory Rate 16 Blood Pressure 137/44 L Pulse Oximetry 95 BMI result Body Mass Index 38.0 Const Other: + confused/altered General: cooperative, healthy appearing and no acute distress Orientation/consciousness: patient oriented x3 Limitations: no limitations HENMT Head: Yes normal to inspection and Yes atraumatic Ears: hearing grossly normal bilaterally General nose exam: Normal external nose present Face and sinus: Yes normal facial exam Eyes General: appearance normal, both eyes and all related structures Pupils: Equal, round and reactive pupils present EOM: EOMs intact bilaterally Neck Neck: Yes normal visual inspection and Yes no meningeal signs Resp Effort & Inspection: normal respiratory effort and no respiratory distress Auscultation: clear to auscultation bilaterally, no rales, no rhonchi and no wheezes Cardio Rate: regular rate Heart sounds: S1 normal heart sound present and S2 normal heart sound present GI Inspection: Yes normal to inspection Palpation (GI): Soft to palpation, nontender, no guarding and not rigid Skin Rashes: no rashes Wounds: no wounds Neuro Other: + mild slurred speech at the end of sentences. Speaking as if past is present. A&O x3 General: patient oriented x3, tone normal, moves all extremities, no meningeal signs, no focal motor deficits and CN's II-XI intact bilaterally Cranial nerves: Yes CN's II-XII intact bilaterally, Yes Equal, round and reactive pupils present, Yes Bilaterally intact EOM present and Yes Nystagmus not present Motor exam (neuro): 5/5 motor strength present throughout, Pronator motor function not present, no tremor noted and no asterixis Coordination: [id number]-to-[id number] test normal Romberg Test: Negative Extrem Other: Splint intact to LUE General: Yes normal to inspection and Yes no pedal edema Course Course Course Narrative: -1533--mild leukocytosis of 13.5. H&H at baseline. BUN 27. Alk-phos chronically elevated. Troponin acute on chronically elevated to 20.6 > will obtain 3hr repeat -BNP 132. COVID-19 negative -tox screen positive for fentanyl >> ?symptoms likely medication related XR chest 1V IMPRESSION: Mild platelike atelectasis left lung base otherwise no acute process seen. CT head/brain wo con IMPRESSION:? There is no acute intracranial process seen -1700--UA negative -CPK 177 -case discussed with hospitalist, no medical need for admission. Will obtain BHN/psychiatry consult. Physician observation initiated as patient needs more time to be evaluated -repeat troponin equivocal, mi unlikely. -2128--ED care transferred to Dr. Priest pending CARE team and psych eval Medical Decision Making [facility] Narrative Medical decision making narrative: 80-year-old female with a past medical history of COPD on chronic O2, PE on Eliquis, diabetes, depression, gout, HTN, obesity, SABRINA on CPAP, s/p orthopedic surgery (left thumb basal joint trapeziectomy and interpositional arthroplasty using FCR tendon) on 06/10/[address] Cedillo at [facility] performed under regional and local anesthesia, presenting to the ED for AMS/increasing confusion since surgery. On exam vital signs stable, NAD/nontoxic, physical exams of the, patient A&O x3 however confused/altered, experiencing visual hallucinations, no focal neuro deficits. Concern for metabolic vs infectious etiologies vs subacute CVA vs anesthesia reaction vs medications/opiate reaction (Rx Oxy after surgery) Plan: EKG, labs, UA, CXR, head CT, drug screen, anticipated admission Medical Records Medical records reviewed: Yes I reviewed the patient's medical records. Lab Data Lab results reviewed: Yes I reviewed the patient's lab results. Result diagrams: 06/13/21 14:38 06/13/21 14:38 Labs: Lab Results 06/13/21 06/13/21 06/13/21 Range/Units 14:38 14:38 14:38 WBC 13.5 H (4.8-10.8) X10*3/uL RBC 3.81 L (4.20-5.50) X10*6/uL Hgb 10.2 L (12.0-16.0) g/dl Hct 32.8 L (37.0-47.0) % MCV 86.1 (80.0-98.0) fL MCH 26.8 L (27.0-33.0) pg MCHC 31.1 (31.0-35.0) g/dl RDW 21.3 H (11.0-16.0) % Plt Count 325 (160-400) X10*3/uL MPV 10.0 (9.4-12.3) fL Immature Gran % (Auto) 0.3 (0.0-0.4) % Neut % (Auto) 67.6 (45-73) % Lymph % (Auto) 18.1 L (20-40) % Gem % (Auto) 12.7 H (2-11) % Eos % (Auto) 1.1 (0-4) % Baso % (Auto) 0.2 (0-2) % Lymph # (Auto) 2.4 (1.2-4.9) X10*3/uL Gem # (Auto) 1.7 H (0.1-1.2) X10*3/uL Eos # (Auto) 0.2 (0.0-0.4) X10*3/uL Baso # (Auto) 0.0 (0.0-0.2) X10*3/uL Abs Immat Gran (auto) 0.04 H (0.00-0.03) X10*3/uL Absolute Neuts (auto) 9.1 H (2.0-8.3) x10*3/uL Absolute Nucleated RBC 0.000 (0.0-0.012) X10*3/uL Nucleated RBC % (auto) 0.0 (0.0-0.2) /100WBC Smear Tech's Comments VERIFIED PT 19.4 H (9.9-13.0) SEC INR 1.7 H (0.9-1.1) APTT 32.8 (24.1-38.0) SEC Sodium 136 (135-145) mmol/L Potassium 3.9 (3.3-5.1) mmol/L Chloride 97 (96-108) mmol/L Carbon Dioxide 28 (22-29) mmol/L Anion Gap 15 (12-20) BUN 27 H (9-16) mg/dL Creatinine 1.15 (0.5-1.4) mg/dL Estim Creat Clear Calc 39.9 Estimated GFR 46 Random Glucose 81 (60-115) mg/dL Calcium 10.0 D (8.4-10.2) mg/dL Magnesium 2.0 (1.6-2.6) mg/dL Total Bilirubin 0.6 (0.0-1.0) mg/dL Direct Bilirubin 0.3 (0.0-0.5) mg/dL AST 20 D (5-31) U/L ALT 9 (0-31) U/L Alkaline Phosphatase 134 H D (39-117) U/L Total Creatine Kinase 177 H (26-140) U/L Troponin I High Sens (<3.5-17.0) ng/L B-Natriuretic Peptide (<100) pg/mL Total Protein 6.3 L (6.5-8.0) g/dL Albumin 3.8 (3.5-5.0) g/dL Lipase 11 (8-78) U/L Urine Color Urine Appearance Urine pH (5.0-8.0) Ur Specific [place] (1.005-1.025) Urine Protein (NEG-TRACE) MG/DL Urine Glucose (UA) (NEG) MG/DL Urine Ketones (NEG) MG/DL Urine Blood (NEG) Urine Nitrite (NEG) Ur Leukocyte Esterase (NEG) Urine RBC (0) /HPF Urine WBC (0-4) /HPF Ur Squamous Epith Cells /LPF Ur Renal Epithelial Cell /LPF Urine Bacteria /LPF Urine Opiates Screen (Not Detect) Urine Fentanyl Screen (Not Detect) Ur Barbiturates Screen (Not Detect) Ur Phencyclidine Scrn (Not Detect) Ur Amphetamines Screen (Not Detect) U Benzodiazepines Scrn (Not Detect) Urine Cocaine Screen (Not Detect) U Marijuana (THC) Screen (Not Detect) COVID-19 ([place]) (Negative) COVID-19 Clin Com 06/13/21 06/13/21 06/13/21 Range/Units 14:38 14:38 16:00 WBC (4.8-10.8) X10*3/uL RBC (4.20-5.50) X10*6/uL Hgb (12.0-16.0) g/dl Hct (37.0-47.0) % MCV (80.0-98.0) fL MCH (27.0-33.0) pg MCHC (31.0-35.0) g/dl RDW (11.0-16.0) % Plt Count (160-400) X10*3/uL MPV (9.4-12.3) fL Immature Gran % (Auto) (0.0-0.4) % Neut % (Auto) (45-73) % Lymph % (Auto) (20-40) % Gem % (Auto) (2-11) % Eos % (Auto) (0-4) % Baso % (Auto) (0-2) % Lymph # (Auto) (1.2-4.9) X10*3/uL Gem # (Auto) (0.1-1.2) X10*3/uL Eos # (Auto) (0.0-0.4) X10*3/uL Baso # (Auto) (0.0-0.2) X10*3/uL Abs Immat Gran (auto) (0.00-0.03) X10*3/uL Absolute Neuts (auto) (2.0-8.3) x10*3/uL Absolute Nucleated RBC (0.0-0.012) X10*3/uL Nucleated RBC % (auto) (0.0-0.2) /100WBC Smear Tech's Comments PT (9.9-13.0) SEC INR (0.9-1.1) APTT (24.1-38.0) SEC Sodium (135-145) mmol/L Potassium (3.3-5.1) mmol/L Chloride (96-108) mmol/L Carbon Dioxide (22-29) mmol/L Anion Gap (12-20) BUN (9-16) mg/dL Creatinine (0.5-1.4) mg/dL Estim Creat Clear Calc Estimated GFR Random Glucose (60-115) mg/dL Calcium (8.4-10.2) mg/dL Magnesium (1.6-2.6) mg/dL Total Bilirubin (0.0-1.0) mg/dL Direct Bilirubin (0.0-0.5) mg/dL AST (5-31) U/L ALT (0-31) U/L Alkaline Phosphatase (39-117) U/L Total Creatine Kinase (26-140) U/L Troponin I High Sens 20.6 H (<3.5-17.0) ng/L B-Natriuretic Peptide 132 H (<100) pg/mL Total Protein (6.5-8.0) g/dL Albumin (3.5-5.0) g/dL Lipase (8-78) U/L Urine Color YELLOW Urine Appearance HAZY Urine pH 5.5 (5.0-8.0) Ur Specific [place] 1.015 (1.005-1.025) Urine Protein NEG (NEG-TRACE) MG/DL Urine Glucose (UA) NEG (NEG) MG/DL Urine Ketones NEG (NEG) MG/DL Urine Blood NEG (NEG) Urine Nitrite NEG (NEG) Ur Leukocyte Esterase TRACE H (NEG) Urine RBC 0 (0) /HPF Urine WBC 1-4 (0-4) /HPF Ur Squamous Epith Cells 4+ /LPF Ur Renal Epithelial Cell 1+ /LPF Urine Bacteria 3+ /LPF Urine Opiates Screen (Not Detect) Urine Fentanyl Screen (Not Detect) Ur Barbiturates Screen (Not Detect) Ur Phencyclidine Scrn (Not Detect) Ur Amphetamines Screen (Not Detect) U Benzodiazepines Scrn (Not Detect) Urine Cocaine Screen (Not Detect) U Marijuana (THC) Screen (Not Detect) COVID-19 ([place]) Negative (Negative) COVID-19 Clin Com See Note 06/13/21 06/13/21 Range/Units 16:00 17:35 WBC (4.8-10.8) X10*3/uL RBC (4.20-5.50) X10*6/uL Hgb (12.0-16.0) g/dl Hct (37.0-47.0) % MCV (80.0-98.0) fL MCH (27.0-33.0) pg MCHC (31.0-35.0) g/dl RDW (11.0-16.0) % Plt Count (160-400) X10*3/uL MPV (9.4-12.3) fL Immature Gran % (Auto) (0.0-0.4) % Neut % (Auto) (45-73) % Lymph % (Auto) (20-40) % Gem % (Auto) (2-11) % Eos % (Auto) (0-4) % Baso % (Auto) (0-2) % Lymph # (Auto) (1.2-4.9) X10*3/uL Gem # (Auto) (0.1-1.2) X10*3/uL Eos # (Auto) (0.0-0.4) X10*3/uL Baso # (Auto) (0.0-0.2) X10*3/uL Abs Immat Gran (auto) (0.00-0.03) X10*3/uL Absolute Neuts (auto) (2.0-8.3) x10*3/uL Absolute Nucleated RBC (0.0-0.012) X10*3/uL Nucleated RBC % (auto) (0.0-0.2) /100WBC Smear Tech's Comments PT (9.9-13.0) SEC INR (0.9-1.1) APTT (24.1-38.0) SEC Sodium (135-145) mmol/L Potassium (3.3-5.1) mmol/L Chloride (96-108) mmol/L Carbon Dioxide (22-29) mmol/L Anion Gap (12-20) BUN (9-16) mg/dL Creatinine (0.5-1.4) mg/dL Estim Creat Clear Calc Estimated GFR Random Glucose (60-115) mg/dL Calcium (8.4-10.2) mg/dL Magnesium (1.6-2.6) mg/dL Total Bilirubin (0.0-1.0) mg/dL Direct Bilirubin (0.0-0.5) mg/dL AST (5-31) U/L ALT (0-31) U/L Alkaline Phosphatase (39-117) U/L Total Creatine Kinase (26-140) U/L Troponin I High Sens 18.9 H (<3.5-17.0) ng/L B-Natriuretic Peptide (<100) pg/mL Total Protein (6.5-8.0) g/dL Albumin (3.5-5.0) g/dL Lipase (8-78) U/L Urine Color Urine Appearance Urine pH (5.0-8.0) Ur Specific [place] (1.005-1.025) Urine Protein (NEG-TRACE) MG/DL Urine Glucose (UA) (NEG) MG/DL Urine Ketones (NEG) MG/DL Urine Blood (NEG) Urine Nitrite (NEG) Ur Leukocyte Esterase (NEG) Urine RBC (0) /HPF Urine WBC (0-4) /HPF Ur Squamous Epith Cells /LPF Ur Renal Epithelial Cell /LPF Urine Bacteria /LPF Urine Opiates Screen Not Detected (Not Detect) Urine Fentanyl Screen POSITIVE H (Not Detect) Ur Barbiturates Screen Not Detected (Not Detect) Ur Phencyclidine Scrn Not Detected (Not Detect) Ur Amphetamines Screen Not Detected (Not Detect) U Benzodiazepines Scrn Not Detected (Not Detect) Urine Cocaine Screen Not Detected (Not Detect) U Marijuana (THC) Screen Not Detected (Not Detect) COVID-19 ([place]) (Negative) COVID-19 Clin Com Discharge Plan Discharge Clinical Impression: Confusion, Hallucinations Patient Disposition: Still a Patient Prescriptions: No Action diltiazem HCl [DILT-XR] 180 mg capsule,ext.rel 24h degradable 180 mg PO DAILY 0RF apixaban 5 mg tablet 5 mg PO BID 0RF lisinopril 20 mg tablet 20 mg PO DAILY 0RF potassium chloride 10 mEq capsule, extended release 40 meq PO DAILY 0RF allopurinol 100 mg tablet 100 mg PO DAILY 0RF omeprazole 20 mg capsule,delayed release(DR/EC) 20 mg PO DAILY 0RF rosuvastatin 20 mg tablet 20 mg PO DAILY 0RF bupropion HCl 300 mg tablet extended release 24 hr 300 mg PO DAILY 0RF duloxetine 60 mg capsule,delayed release(DR/EC) 60 mg PO DAILY 0RF Trelegy Ellipta 100-62.5-25 mcg blister with device 1 inh inhalation DAILY 0RF bupropion HCl 150 mg tablet extended release 24 hr 150 mg PO DAILY@1700 0RF furosemide 40 mg tablet 40 mg PO DAILY 0RF furosemide 40 mg tablet 20 mg PO DAILY@1700 0RF docusate sodium 50 mg Capsule 50 mg PO DAILY PRN (Reason: Constipation) 0RF ferrous sulfate 325 mg (65 mg iron) Tablet 325 mg PO DAILY 0RF albuterol sulfate 90 mcg/actuation Hfa Aerosol Inhaler 2 puff INHALATION Q6H PRN (Reason: Shortness Of Breath) 0RF cholecalciferol (vitamin D3) 50 mcg (2,000 unit) Tablet 50 mcg PO BEDTIME 0RF
[2021-06-13] MEDS: 0.9 % Sodium Chloride 500 ML 999 ML IV (16:09)
[2021-06-13 16:14] LABS: Appearance Urine HAZY; Color Urine YELLOW; Glucose Urine UA NEG (NEG); Leukocyte Esterase Urine TRACE (NEG); Nitrite Urine NEG (NEG); PH 5.5 (5.0-8.0); Specific Gravity - Urine 1.015 (1.005-1.025); UACC Culture Trigger YES; Urine Blood NEG (NEG); Urine Ketones NEG (NEG); Urine Protein NEG (NEG-TRACE)
[2021-06-13 16:28] LABS: Amphetamine Screen Urine Not Detected (Not Detect); Barbiturates, Urine Not Detected (Not Detect); Benzodiazepines Screen Urine Not Detected (Not Detect); Cannabinoid Screen Urine Not Detected (Not Detect); Cocaine Screen Urine Not Detected (Not Detect); Fentanyl, urine POSITIVE (Not Detect); Opiate Screen Urine Not Detected (Not Detect); Phencyclidine Screen Urine Not Detected (Not Detect)
[2021-06-13 16:31] VITALS: BP 118/47; PULSE 62; RESP 13; TEMP 37.2; O2SAT 99
[2021-06-13 16:43] LABS: Bacteria Urine 3+ /LPF; RBC Urine 0 /HPF (0); Renal Epithelial Cells Urine 1+ /LPF; Squamous Epithelial Cell Urine 4+ /LPF
[2021-06-13 18:00] LABS: Troponin-I High Sensitivity 18.9 ng/L (<3.5-17.0)
[2021-06-13 20:12] VITALS: BP 137/44; PULSE 58; RESP 16; TEMP 37.9; O2SAT 95
[2021-06-13] MEDS: Acetaminophen 325 MG TABLET 975 MG PO (20:49)
[2021-06-13] MEDS: Apixaban 5 MG TABLET PO (20:49)
[2021-06-13] MEDS: Cholecalciferol (Vitamin D3) 25 MCG TABLET 50 MCG PO (20:49)
--- NOTE | 2021-06-13 21:37 | PM.PSYCN ---
History of Present Illness Date of Service: 06/13/21 Chief Complaint: confusion Reason for Consult: Disposition, medication Requesting physician: Tamela Saldana Discussed with referring provider: Yes Sources of Information: patient interviewed, chart reviewed and crisis/core team assessment reviewed HPI Narrative: Cindi is a 80 y.o. Female who carries a dx of MDD recurrent and EDWIAN. She has a past medical history of COPD on chronic O2, PE on Eliquis, diabetes, gout, HTN, obesity, SABRINA on CPAP, s/p orthopedic surgery (left thumb basal joint trapeziectomy and interpositional arthroplasty using FCR tendon) on 06/10/[address] Cedillo at [facility] performed under regional and local anesthesia. She presented to [facility] [place] [facility] for AMS/increasing confusion since surgery. Pt?s son reported pt is also having VH i.e. ?saw people walking in the street when she could not see the street, saw carpet moving/believed she just ate bag of Cheetos when did not, talking as if past events are the present, and picking out stuffing from splint material & throwing on floor while laughing. The hospitalist noted that pt had mild slurred speech, was speaking as if past is present. Patient herself does not realize she is confused.? Utox positive for fentanyl, pt denies illicit substance use. Per CARE team laurenal pt is not at baseline and this is a ?huge change? in her mental status and that she did not present this way prior to surgery. Pt told CARE team clinician that she feels depressed. Has poor appetite and sleep.? Consult requested for medication, disposition.? I evaluated the pt this evening and upon interview she reports she is at the hospital because ?My kids are concerned with my health.? Per pt, ?I think they are all ganging up on me to put me away.? At times pt is coherent. She is tangential with racing thoughts. Says ?it was the hallucinations that made him [her son] think I needed the hospital. Sleep is ?not good, I dream all night long.? Says her energy is low. Mood is ?depressed,? as she discusses her three marriages and regrets she has. Says she has been writing journals for her kids about her life. Pt says she had a similar episode in which she was hallucinating last December, after she was hospitalized with COVBROOKE. Says her sons told her she was not making sense, however this resolved on its own. She doesnt want to take anything for sleep. She does acknowledge ?I am a talker, all this stuff is bottled up.? Current medications: wellbutrin XL 300 mg QAM, cymbalta 90 mg, and ativan 0.5 mg QD PRN.? Past Psychiatric History: -Denies Medical Evaluation Reviewed: Yes [facility] Medical History Acute respiratory failure CHF (congestive heart failure) COPD (chronic obstructive pulmonary disease) COPD (chronic obstructive pulmonary disease) COVID-19 Depression Diabetes mellitus Gout Heart valve problem HTN (hypertension) Myocarditis Non-pressure chronic ulcer of skin of other sites with fat layer exposed Obesity SABRINA on CPAP Pneumonia Pulmonary embolism Pulmonary nodules Surgical History History of aortic valve replacement with bioprosthetic valve History of total right hip arthroplasty Hx of laparoscopic gastric banding Previous back surgery Social History: -Pt resides with her and her son Robert. Diagnostics Vital Signs (24Hr): Vital Signs - 24 hr 06/13/21 13:54 06/13/21 14:27 06/13/21 16:31 Temperature 96.7 F L 98.9 F Pulse Rate 68 66 62 Respiratory Rate 16 14 13 Blood Pressure 115/35 L 153/50 H 118/47 L Pulse Oximetry 95 98 99 06/13/21 20:12 Temperature 100.3 F Pulse Rate 58 Respiratory Rate 16 Blood Pressure 137/44 L Pulse Oximetry 95 BMI result Body Mass Index 38.0 Labs Results: 06/13/21 14:38 06/13/21 14:38 Labs: Laboratory Results - last 48 hr 06/13/21 06/13/21 06/13/21 14:38 14:38 14:38 WBC 13.5 H RBC 3.81 L Hgb 10.2 L Hct 32.8 L MCV 86.1 MCH 26.8 L MCHC 31.1 RDW 21.3 H Plt Count 325 MPV 10.0 Immature Gran % (Auto) 0.3 Neut % (Auto) 67.6 Lymph % (Auto) 18.1 L Bergen % (Auto) 12.7 H Eos % (Auto) 1.1 Baso % (Auto) 0.2 Lymph # (Auto) 2.4 Bergen # (Auto) 1.7 H Eos # (Auto) 0.2 Baso # (Auto) 0.0 Abs Immat Gran (auto) 0.04 H Absolute Neuts (auto) 9.1 H Absolute Nucleated RBC 0.000 Nucleated RBC % (auto) 0.0 Smear Tech's Comments VERIFIED PT 19.4 H INR 1.7 H APTT 32.8 Sodium 136 Potassium 3.9 Chloride 97 Carbon Dioxide 28 Anion Gap 15 BUN 27 H Creatinine 1.15 Estim Creat Clear Calc 39.9 Estimated GFR 46 Random Glucose 81 Calcium 10.0 D Magnesium 2.0 Total Bilirubin 0.6 Direct Bilirubin 0.3 AST 20 D ALT 9 Alkaline Phosphatase 134 H D Total Creatine Kinase 177 H Troponin I High Sens B-Natriuretic Peptide Total Protein 6.3 L Albumin 3.8 Lipase 11 Urine Color Urine Appearance Urine pH Ur Specific [place] Urine Protein Urine Glucose (UA) Urine Ketones Urine Blood Urine Nitrite Ur Leukocyte Esterase Urine RBC Urine WBC Ur Squamous Epith Cells Ur Renal Epithelial Cell Urine Bacteria Urine Opiates Screen Urine Fentanyl Screen Ur Barbiturates Screen Ur Phencyclidine Scrn Ur Amphetamines Screen U Benzodiazepines Scrn Urine Cocaine Screen U Marijuana (THC) Screen COVID-19 ([facility]) COVID-19 Clin Com 06/13/21 06/13/21 06/13/21 14:38 14:38 16:00 WBC RBC Hgb Hct MCV MCH MCHC RDW Plt Count MPV Immature Gran % (Auto) Neut % (Auto) Lymph % (Auto) Berg[place] % (Auto) Eos % (Auto) Baso % (Auto) Lymph # (Auto) [place] # (Auto) Eos # (Auto) Baso # (Auto) Abs Immat Gran (auto) Absolute Neuts (auto) Absolute Nucleated RBC Nucleated RBC % (auto) Smear Tech's Comments PT INR APTT Sodium Potassium Chloride Carbon Dioxide Anion Gap BUN Creatinine Estim Creat Clear Calc Estimated GFR Random Glucose Calcium Magnesium Total Bilirubin Direct Bilirubin AST ALT Alkaline Phosphatase Total Creatine Kinase Troponin I High Sens 20.6 H B-Natriuretic Peptide 132 H Total Protein Albumin Lipase Urine Color YELLOW Urine Appearance HAZY Urine pH 5.5 Ur Specific [place] 1.015 Urine Protein NEG Urine Glucose (UA) NEG Urine Ketones NEG Urine Blood NEG Urine Nitrite NEG Ur Leukocyte Esterase TRACE H Urine RBC 0 Urine WBC 1-4 Ur Squamous Epith Cells 4+ Ur Renal Epithelial Cell 1+ Urine Bacteria 3+ Urine Opiates Screen Urine Fentanyl Screen Ur Barbiturates Screen Ur Phencyclidine Scrn Ur Amphetamines Screen U Benzodiazepines Scrn Urine Cocaine Screen U Marijuana (THC) Screen COVID-19 ([place]) Negative COVID-19 Clin Com See Note 06/13/21 06/13/21 16:00 17:35 WBC RBC Hgb Hct MCV MCH MCHC RDW Plt Count MPV Immature Gran % (Auto) Neut % (Auto) Lymph % (Auto) Berg[place] % (Auto) Eos % (Auto) Baso % (Auto) Lymph # (Auto) Berg[place] # (Auto) Eos # (Auto) Baso # (Auto) Abs Immat Gran (auto) Absolute Neuts (auto) Absolute Nucleated RBC Nucleated RBC % (auto) Smear Tech's Comments PT INR APTT Sodium Potassium Chloride Carbon Dioxide Anion Gap BUN Creatinine Estim Creat Clear Calc Estimated GFR Random Glucose Calcium Magnesium Total Bilirubin Direct Bilirubin AST ALT Alkaline Phosphatase Total Creatine Kinase Troponin I High Sens 18.9 H B-Natriuretic Peptide Total Protein Albumin Lipase Urine Color Urine Appearance Urine pH Ur Specific [place] Urine Protein Urine Glucose (UA) Urine Ketones Urine Blood Urine Nitrite Ur Leukocyte Esterase Urine RBC Urine WBC Ur Squamous Epith Cells Ur Renal Epithelial Cell Urine Bacteria Urine Opiates Screen Not Detected Urine Fentanyl Screen POSITIVE H Ur Barbiturates Screen Not Detected Ur Phencyclidine Scrn Not Detected Ur Amphetamines Screen Not Detected U Benzodiazepines Scrn Not Detected Urine Cocaine Screen Not Detected U Marijuana (THC) Screen Not Detected COVID-19 ([facility]) COVID-19 Clin Com Imaging Radiology Impressions: ITS Impressions Chest X-Ray 06/13/21 15:15 IMPRESSION: Mild platelike atelectasis left lung base otherwise no acute process seen. There is no acute intracranial process seen Head CT 06/13/21 15:25 IMPRESSION: Mild platelike atelectasis left lung base otherwise no acute process seen. There is no acute intracranial process seen Medications Medications Current Medications Albuterol Sulfate (Albuterol Sulfate 90 Mcg 8 Gm Inhaler) 2 puff INHALE RQ6H PRN PRN Reason: Shortness Of Breath Allopurinol (Allopurinol 100 Mg Tablet) 100 mg PO DAILY [facility] Apixaban (Apixaban 5 Mg Tablet) 5 mg PO BID [facility] Last Admin: 06/13/21 20:49 Dose: 5 mg Documented by: Atorvastatin Calcium (Atorvastatin Calcium 80 Mg Tablet) 80 mg PO DAILY [facility] Bupropion HCl (Bupropion Hcl Xl 300 Mg Tab.Er.24h) 300 mg PO DAILY [facility] Diltiazem HCl (Diltiazem Hcl Cd 180 Mg Cap.Er.24h) 180 mg PO DAILY [facility]; Protocol Docusate Sodium (Docusate Sodium 100 Mg/10 Ml Liquid) 50 mg PO DAILY PRN PRN Reason: Constipation Duloxetine HCl (Duloxetine Hcl 60 Mg Capsule.) 60 mg PO DAILY [facility] Ferrous Sulfate (Ferrous Sulfate 324 Mg Tablet.) 324 mg PO DAILY [facility] Furosemide (Furosemide 20 Mg Tablet) 20 mg PO DAILY@1700 [facility]; Protocol Furosemide (Furosemide 40 Mg Tablet) 40 mg PO DAILY [facility]; Protocol Lisinopril (Lisinopril 20 Mg Tablet) 20 mg PO DAILY [facility]; Protocol Non-Formulary Medication (Pohecxsaghh-Hvvmbodgd-Hsfbmqyp [Trelegy Ellipta]) 1 inhalation INHALE DAILY [facility] Omeprazole (Omeprazole 20 Mg Capsule.) 20 mg PO DAILY@0630 [facility] Pharmacy Consult (Consult Rx Perform Med Rec) 1 each MISCELLANE ONCE PRN PRN Reason: Consult order Potassium Chloride (Potassium Chloride Er 10 Meq Capsule.Er) 40 meq PO DAILY [facility] Vitamin D (Cholecalciferol (Vitamin D3) 25 Mcg Tablet) 50 mcg PO BEDTIME [facility] Last Admin: 06/13/21 20:49 Dose: 50 mcg Documented by: Allergies Allergies Allergy/AdvReac Type Severity Reaction Status Date / Time No Known Allergies Allergy Verified 04/04/21 18:56 [No Known Allergies*] Assessment & Plan Assessment & Plan (1) Delirium: Status: Acute Code(s): R41.0 - Disorientation, unspecified Plan Cindi is a 80 y.o. Female who carries a dx of MDD recurrent and EDWINA. She has a past medical history of COPD on chronic O2, PE on Eliquis, diabetes, gout, HTN, obesity, SABRINA on CPAP, s/p orthopedic surgery (left thumb basal joint trapeziectomy and interpositional arthroplasty using FCR tendon) on 06/10/[address] Cedillo at [facility] performed under regional and local anesthesia. She presented to [facility] [place] [facility] for AMS/increasing confusion since surgery. Plan: Pt appears to have sx consistent with delirium s/p recent surgery, as she does not have a psychiatric history and has had a hx of delirium s/p COVID that was similar and resolved with treatment of underlying condition. Recommend holding wellbutrin, as this is stimulating and may be worsening pt?s symptoms and sleep. Hospitalist will obtain MRI to r/o CVA. -Continue monitoring medically. -Patient cannot leave AGAINST MEDICAL ADVICE. initial treatments ordered collateral history needed I have shared this with Tamela Thank you for this consultation. If you have any questions or concerns, please do not hesitate to contact psychiatry service. I spent minutes with the patient and/or on the patient floor today, greater than?50% of which was spent counseling/coordinating care.
[2021-06-13 23:51] LABS: Influenza A Negative (Negative); Influenza B2 Negative (Negative)
[2021-06-14] VITALS (8 sets, daily range): BP systolic 128–175; BP diastolic 50–59; PULSE 60–83; RESP 11–18; TEMP 36.7–37.2; O2SAT 88–99
[2021-06-14] MEDS: Omeprazole 20 MG CAPSULE.DR PO (06:06)
--- NOTE | 2021-06-14 06:06 | PC.NURSE ---
Pt POC blood sugar 72, applications system analyst aware
[2021-06-14 06:08] LABS: Glucose, Whole Blood 72 mg/dL (60-115)
[2021-06-14] MEDS: Apixaban 5 MG TABLET PO (08:27)
[2021-06-14] MEDS: Ferrous Sulfate 324 MG TABLET.DR PO (08:27)
[2021-06-14] MEDS: DULoxetine HCl 60 MG CAPSULE.DR PO (08:27)
[2021-06-14] MEDS: allopurinoL 100 MG TABLET PO (08:27)
[2021-06-14] MEDS: buPROPion HCl XL 300 MG TAB.ER.24H PO (08:27)
[2021-06-14] MEDS: dilTIAZem HCL CD 180 MG CAP.ER.24H PO (08:27)
[2021-06-14] MEDS: Atorvastatin Calcium 80 MG TABLET PO (08:27)
[2021-06-14] MEDS: Furosemide 40 MG TABLET PO (08:27)
[2021-06-14] MEDS: lisinopriL 20 MG TABLET PO (08:28)
[2021-06-14 08:29] LABS: Glucose, Whole Blood 74 mg/dL (60-115)
--- NOTE | 2021-06-14 11:10 | PC.NURSE ---
patient a&o, vitals obtained after patient returning from bathroom, noted pt o2 sat in 80s on room air, pt states she is on home o2, reapplied oxygen at 2.5 liters and patient increased to 96%, pt was speaking in full sentences no distress noted, family at bedside, pt c/o back pain from stretcher- will see if we can obtain a hospital bed to help, call [facility] within reach, will continue to monitor
--- NOTE | 2021-06-14 13:12 | MHC.CARE ---
Pt does not require a psychiatric admission. Plan for case management regarding discharge needs.
--- NOTE | 2021-06-14 14:10 | MHC.CM.ED ---
Received case management consult from Altagracia PEÑALOZA. Patient came to ER due to confusion. Work up was essentially negative. Patient was cleared by Care team. Physical therapy eval completed. Home therapy is recommended. Met with patient and , Don in regards to discharge planning. Patient lives with Don and son Robert. Patient is active with [facility] for alf and occupational therapy. PCP verified as Miguel Morrison. Patient and Don agreeable to returning home with physical therapy being added to services. [facility] made aware. Don will transport patient home when medically stable. Continue to monitor for d/c needs.
== END 2021-06-14 14:17 | disposition home or self-care (01) ==
PROVIDERS: Physician Assistant; Emergency Provider Emergency Medicine; PCP Physician Assistant Medical
DX: R41.0 Disorientation, unspecified (principal); R44.1 Visual hallucinations; Z20.822 Contact with and (suspected) exposure to COVID-19; E11.9 Type 2 diabetes mellitus without complications; I10 Essential (primary) hypertension; J44.9 Chronic obstructive pulmonary disease, unspecified; Z86.711 Personal history of pulmonary embolism; Z99.81 Dependence on supplemental oxygen; Z79.01 Long term (current) use of anticoagulants; Z79.899 Other long term (current) drug therapy
CPT/HCPCS: 36415; 70450; 70551; 71045; 80048; 80076; 80307; 81001; 82550; 82947; 83690; 83735; 83880; 84484; 85025; 85610; 85730; 87086; 87502; 87635; 93005; 97162; 99285

== ENCOUNTER 2021-06-19 11:29 | Emergency (ER) | payer MEDICARE, SELFPAY ==
--- NOTE | ~2021-06-19 | XR_ITS ---
EXAMINATION: XR CHEST CLINICAL INFORMATION: Hemoptysis for one month. COMPARISON: 06/13/2021 chest radiograph. TECHNIQUE: Frontal view of the chest was obtained. FINDINGS: The lungs are clear. The heart and mediastinal structures are unremarkable. Multilevel sternotomy wires are intact. XR/XR chest 1V IMPRESSION: No acute cardiopulmonary process.
[2021-06-19 11:41] VITALS: BP 147/57; PULSE 90; RESP 17; TEMP 36.3; O2SAT 95; BMI 31.8
[2021-06-19 13:25] LABS: MANUAL DIFF FLAG NO
--- NOTE | 2021-06-19 13:29 | ECG_ITS ---
Test Reason : VOMITING BLOOD Blood Pressure : / mmHG Vent. Rate : 072 BPM Atrial Rate : 241 BPM P-R Int : 000 ms QRS Dur : 126 ms QT Int : 412 ms P-R-T Axes : 110 -69 050 degrees QTc Int : 451 ms Atrial flutter with variable A-V block with premature ventricular or aberrantly conducted complexes Left axis deviation Non-specific intra-ventricular conduction block Minimal voltage criteria for LVH, may be normal variant ( [place] product ) Abnormal ECG When compared with ECG of 13-JUN-2021 14:42, ST less depressed in Inferior leads Referred By: Danita Dozier Electronically Signed By:FRAN PABON MD
--- NOTE | 2021-06-19 13:29 | ED.NAVMDI ---
HPI - Nausea/Vomiting/Diarrhea General Chief complaint: Nausea/Vomiting/Diarrhea Stated complaint: vomiting blood clots Time Seen by Provider: 06/19/21 13:18 Source: patient Mode of arrival: ambulatory Limitations: no limitations History of Present Illness HPI Narrative: Patient comes to the emergency room complaining of black emesis for 2 days. Patient states that yesterday she started complaining of epigastric burning, today she had multiple episodes of black vomiting. Patient states that she has noticed that for about a month, sometimes when she coughs black specks. Patient states that she is compliant taking Eliquis, patient takes it for previous history of pulmonary embolisms and atrial fibrillation. Patient denies any chest pain or shortness of breath. She uses 3 L of oxygen at home. Patient denies fever chills, no diarrhea, no blood/black stool. This time, patient does not have abdominal pain, nausea, no vomiting since patient arrived to emergency room. Related Data Home Medications Medication Instructions Recorded Confirmed allopurinol 100 mg tablet 100 mg PO DAILY 01/30/20 06/13/21 bupropion HCl 150 mg 24 hr tablet, 150 mg PO DAILY@1700 01/30/20 06/13/21 extended release bupropion HCl 300 mg 24 hr tablet, 300 mg PO DAILY 01/30/20 06/13/21 extended release duloxetine 60 mg capsule,delayed 60 mg PO DAILY 01/30/20 06/13/21 release fluticasone fur. 100 mcg-umeclid 1 inh INHALATION DAILY 01/30/20 06/13/21 62.5 mcg-vilant 25 mcg inhalat.powder (Trelegy Ellipta) omeprazole 20 mg capsule,delayed 20 mg PO DAILY 01/30/20 06/13/21 release potassium chloride 10 mEq 40 meq PO DAILY 01/30/20 06/13/21 capsule,extended release rosuvastatin 20 mg tablet 20 mg PO DAILY 01/30/20 06/13/21 apixaban 5 mg tablet 5 mg PO BID 08/17/20 06/13/21 diltiazem HCl 180 mg 180 mg PO DAILY 08/17/20 06/13/21 capsule,extended release 24 hr, controlled (DILT-XR) lisinopril 20 mg tablet 20 mg PO DAILY 08/18/20 06/13/21 albuterol sulfate 90 mcg/actuation 2 puff INHALATION Q6H PRN 06/13/21 06/13/21 aerosol inhaler cholecalciferol (vitamin D3) 50 50 mcg PO BEDTIME 06/13/21 06/13/21 mcg (2,000 unit) tablet docusate sodium 50 mg capsule 50 mg PO DAILY PRN 06/13/21 06/13/21 ferrous sulfate 325 mg (65 mg 325 mg PO DAILY 06/13/21 06/13/21 iron) tablet furosemide 40 mg tablet 20 mg PO DAILY@1700 06/13/21 06/13/21 furosemide 40 mg tablet 40 mg PO DAILY 06/13/21 06/13/21 Previous Rx's Medication Instructions Recorded ondansetron 4 mg disintegrating 4 mg PO Q8H PRN #14 tab 06/19/21 tablet Allergies Allergy/AdvReac Type Severity Reaction Status Date / Time No Known Allergies Allergy Verified 04/04/21 18:56 [No Known Allergies*] Review of Systems Review of Systems: Constitutional : No Weight loss, No Fever, No Chills, No Night Sweats, No Fatigue, No Malaise ENT/Mouth : No Hearing loss, No Ear Pain, No Nasal Congestion, No Sinus Pain, No Hoarseness, No sore throat, No Rhinorrhea, No Swallowing Difficulty Eyes: No Eye Pain, No Swelling, No Redness, No Foreign Body, No Discharge, No Vision Changes Cardiovascular : No Chest Pain, No SOB, No Dyspnea on Exertion, No Orthopnea, No Edema, No Palpitations Respiratory : No Cough, No Sputum, No Wheezing, No Smoke Exposure, No Dyspnea Gastrointestinal : Complaining of multiple episodes of nausea and black emesis, No Diarrhea, No Constipation, complaining of epigastric burning sensation since yesterday, No Hematochezia, No Melena Genitourinary : no irregular bleeding, No Dysuria, No Urinary Frequency, No Hematuria, No Urinary Incontinence, No Urgency, No Flank Pain, No Urinary Flow Changes, No Hesitancy Musculoskeletal : No joint pain, No Myalgias, No Joint Swelling Skin : No Skin Lesions, No rash Neuro : No Weakness, No Numbness, No Paresthesias, No Loss of Consciousness, No Dizziness, No Headache Psych : No Anxiety/Panic, No Depression, No SI/HI/AH/VH, No Social Issues, Heme/Lymph: No Bruising, No Bleeding,No Lymphadenopathy Endocrine : No Polyuria, No Polydipsia, No Temperature Intolerance [facility] Past Medical History Medical History Acute respiratory failure CHF (congestive heart failure) COPD (chronic obstructive pulmonary disease) COPD (chronic obstructive pulmonary disease) COVID-19 Depression Diabetes mellitus Gout Heart valve problem HTN (hypertension) Myocarditis Non-pressure chronic ulcer of skin of other sites with fat layer exposed Obesity SABRINA on CPAP Pneumonia Pulmonary embolism Pulmonary nodules Surgical History History of aortic valve replacement with bioprosthetic valve History of total right hip arthroplasty Hx of laparoscopic gastric banding Previous back surgery Family History Family History Sister Lung cancer Mother Renal cancer Other Diabetes mellitus Social History Social History Household Members: Family Household Members Other:: lives with her and her son Housing: House Do you presently have visiting nurse or other home services: No Alcohol intake: never Patient Tobacco Use Status: Never used Tobacco Advance Directives: Yes Advance Directives Information Provided: Yes Advance Directives on File: No service: No Current occupational status: retired Physical Exam Vital Signs: Vital Signs: Last Vital Signs Temp 97.4 F 06/19/21 11:41 Pulse 90 06/19/21 11:41 Resp 17 06/19/21 11:41 BP 147/57 H 06/19/21 11:41 Pulse Ox 95 06/19/21 11:41 BMI result Body Mass Index 31.8 Const: Other: Appearance: Alert. Oriented X3. No acute distress. Eyes: Pupils equal, round and reactive to light. ENT: Pharynx normal. Neck: Normal inspection. Neck supple. No lymph nodes noted. No crepitus CVS: Normal heart rate and rhythm. Pulses normal. Normal S1 and S2 Respiratory: No respiratory distress. Breath sounds normal. No Wheezing. No rales , on 3 L home O2 Abdomen: Soft and nontender. No rigidity. No distention. Digital rectal exam shows brown stool Skin: Skin warm and dry. Normal skin color. Normal skin turgor. Patient has a healing wound above the gluteal , without any drainage. Extremities: No lower extremity edema. No Lacerations. No Rash Neuro: Oriented X 3. No motor deficit. No sensory deficit. Moving all extremities. No slurred speech. CN 2 through 12 grossly intact Psych: calm, cooperative, normal affect Course Course Course Narrative: On physical exam it was noted the patient has a 1 cm wound above her buttocks. Patient states she has been going to the wound clinic for 1 year, patient had a pilonidal cyst and a fall, patient denies any worsening pain. Patient's takes care of the wound in the have ongoing wound clinic visits, last visit 3 weeks ago. Patient received 1 L of fluids and Zofran. I discussed the labs with the patient, no acute findings that need correction, white blood cell count, hemoglobin, hematocrit and platelets are at baseline, no electrolyte abnormalities. Chest x-ray normal, urinalysis negative, occult/guaiac test negative. Troponin at baseline. MDM - Nausea/Vomiting/Diarrhea Lab Data Result diagrams: 06/19/21 13:21 06/19/21 13:21 Labs: Lab Results 06/19/21 06/19/21 06/19/21 Range/Units 13:21 13:21 13:21 WBC 11.6 H (4.8-10.8) X10*3/uL RBC 4.08 L (4.20-5.50) X10*6/uL Hgb 11.0 L (12.0-16.0) g/dl Hct 35.5 L (37.0-47.0) % MCV 87.0 (80.0-98.0) fL MCH 27.0 (27.0-33.0) pg MCHC 31.0 (31.0-35.0) g/dl RDW 20.8 H (11.0-16.0) % Plt Count 423 H D (160-400) X10*3/uL MPV 10.0 (9.4-12.3) fL Immature Gran % (Auto) 0.6 H (0.0-0.4) % Neut % (Auto) 73.6 H (45-73) % Lymph % (Auto) 16.1 L (20-40) % [place] % (Auto) 8.2 (2-11) % Eos % (Auto) 1.2 (0-4) % Baso % (Auto) 0.3 (0-2) % Lymph # (Auto) 1.9 (1.2-4.9) X10*3/uL [place] # (Auto) 1.0 (0.1-1.2) X10*3/uL Eos # (Auto) 0.1 (0.0-0.4) X10*3/uL Baso # (Auto) 0.0 (0.0-0.2) X10*3/uL Abs Immat Gran (auto) 0.07 H (0.00-0.03) X10*3/uL Absolute Neuts (auto) 8.5 H (2.0-8.3) x10*3/uL Absolute Nucleated RBC 0.000 (0.0-0.012) X10*3/uL Nucleated RBC % (auto) 0.0 (0.0-0.2) /100WBC Sodium 139 (135-145) mmol/L Potassium 4.2 (3.3-5.1) mmol/L Chloride 99 (96-108) mmol/L Carbon Dioxide 29 (22-29) mmol/L Anion Gap 15 (12-20) BUN 12 D (9-16) mg/dL Creatinine 1.03 (0.5-1.4) mg/dL Estim Creat Clear Calc 47.2 Estimated GFR 52 Random Glucose 129 H (60-115) mg/dL Calcium 10.5 H (8.4-10.2) mg/dL Total Bilirubin 0.2 (0.0-1.0) mg/dL Direct Bilirubin 0.2 (0.0-0.5) mg/dL AST 17 (5-31) U/L ALT 10 (0-31) U/L Alkaline Phosphatase 153 H (39-117) U/L Troponin I High Sens 13.2 (<3.5-17.0) ng/L Total Protein 6.4 L (6.5-8.0) g/dL Albumin 3.8 (3.5-5.0) g/dL Lipase 15 (8-78) U/L Urine Color Urine Appearance Urine pH (5.0-8.0) Ur Specific [place] (1.005-1.025) Urine Protein (NEG-TRACE) MG/DL Urine Glucose (UA) (NEG) MG/DL Urine Ketones (NEG) MG/DL Urine Blood (NEG) Urine Nitrite (NEG) Ur Leukocyte Esterase (NEG) Stool Occult Blood (NEGATIVE) 06/19/21 06/19/21 Range/Units 13:42 14:00 WBC (4.8-10.8) X10*3/uL RBC (4.20-5.50) X10*6/uL Hgb (12.0-16.0) g/dl Hct (37.0-47.0) % MCV (80.0-98.0) fL MCH (27.0-33.0) pg MCHC (31.0-35.0) g/dl RDW (11.0-16.0) % Plt Count (160-400) X10*3/uL MPV (9.4-12.3) fL Immature Gran % (Auto) (0.0-0.4) % Neut % (Auto) (45-73) % Lymph % (Auto) (20-40) % [place] % (Auto) (2-11) % Eos % (Auto) (0-4) % Baso % (Auto) (0-2) % Lymph # (Auto) (1.2-4.9) X10*3/uL [place] # (Auto) (0.1-1.2) X10*3/uL Eos # (Auto) (0.0-0.4) X10*3/uL Baso # (Auto) (0.0-0.2) X10*3/uL Abs Immat Gran (auto) (0.00-0.03) X10*3/uL Absolute Neuts (auto) (2.0-8.3) x10*3/uL Absolute Nucleated RBC (0.0-0.012) X10*3/uL Nucleated RBC % (auto) (0.0-0.2) /100WBC Sodium (135-145) mmol/L Potassium (3.3-5.1) mmol/L Chloride (96-108) mmol/L Carbon Dioxide (22-29) mmol/L Anion Gap (12-20) BUN (9-16) mg/dL Creatinine (0.5-1.4) mg/dL Estim Creat Clear Calc Estimated GFR Random Glucose (60-115) mg/dL Calcium (8.4-10.2) mg/dL Total Bilirubin (0.0-1.0) mg/dL Direct Bilirubin (0.0-0.5) mg/dL AST (5-31) U/L ALT (0-31) U/L Alkaline Phosphatase (39-117) U/L Troponin I High Sens (<3.5-17.0) ng/L Total Protein (6.5-8.0) g/dL Albumin (3.5-5.0) g/dL Lipase (8-78) U/L Urine Color YELLOW Urine Appearance CLOUDY Urine pH 6.0 (5.0-8.0) Ur Specific [place] 1.020 (1.005-1.025) Urine Protein NEG (NEG-TRACE) MG/DL Urine Glucose (UA) NEG (NEG) MG/DL Urine Ketones NEG (NEG) MG/DL Urine Blood NEG (NEG) Urine Nitrite NEG (NEG) Ur Leukocyte Esterase NEG (NEG) Stool Occult Blood NEGATIVE (NEGATIVE) ECG Data Attestation: I personally reviewed and interpreted this ECG as follows: (Atrial flutter, heart rate 72, no ST segment depression elevation, occasional PVCs, QTC 451) Discharge Plan Discharge Clinical Impression: Vomiting Patient Disposition: Home, Self-Care Instructions: Acute Nausea and Vomiting (ED) Additional Instructions: Please follow-up with your primary care physician tomorrow. If you have any worsening or new symptoms, please return to the emergency room or call 911 Prescriptions: New ondansetron 4 mg tablet,disintegrating 4 mg PO Q8H PRN (Reason: nausea and vomiting) Qty: 14 0RF No Action diltiazem HCl [DILT-XR] 180 mg capsule,ext.rel 24h degradable 180 mg PO DAILY 0RF apixaban 5 mg tablet 5 mg PO BID 0RF lisinopril 20 mg tablet 20 mg PO DAILY 0RF potassium chloride 10 mEq capsule, extended release 40 meq PO DAILY 0RF allopurinol 100 mg tablet 100 mg PO DAILY 0RF omeprazole 20 mg capsule,delayed release(DR/EC) 20 mg PO DAILY 0RF rosuvastatin 20 mg tablet 20 mg PO DAILY 0RF bupropion HCl 300 mg tablet extended release 24 hr 300 mg PO DAILY 0RF duloxetine 60 mg capsule,delayed release(DR/EC) 60 mg PO DAILY 0RF Trelegy Ellipta 100-62.5-25 mcg blister with device 1 inh inhalation DAILY 0RF bupropion HCl 150 mg tablet extended release 24 hr 150 mg PO DAILY@1700 0RF furosemide 40 mg tablet 40 mg PO DAILY 0RF furosemide 40 mg tablet 20 mg PO DAILY@1700 0RF docusate sodium 50 mg Capsule 50 mg PO DAILY PRN (Reason: Constipation) 0RF ferrous sulfate 325 mg (65 mg iron) Tablet 325 mg PO DAILY 0RF albuterol sulfate 90 mcg/actuation Hfa Aerosol Inhaler 2 puff INHALATION Q6H PRN (Reason: Shortness Of Breath) 0RF cholecalciferol (vitamin D3) 50 mcg (2,000 unit) Tablet 50 mcg PO BEDTIME 0RF Referrals: Miguel Morrison PA [Primary Care Provider] - 2 days
[2021-06-19 13:32] LABS: Basophils Percent Auto 0.3 % (0-2); Eosinophils Absolute Auto 0.1 X10*3/uL (0.0-0.4); Eosinophils Percent Auto 1.2 % (0-4); Hematocrit 35.5 % (37.0-47.0); Imm Gran Abs Auto 0.07 X10*3/uL (0.00-0.03); Imm Gran Pct Auto 0.6 % (0.0-0.4); Lymphocytes Absolute Auto 1.9 X10*3/uL (1.2-4.9); Lymphocytes Percent Auto 16.1 % (20-40); Monocytes Percent Auto 8.2 % (2-11); Neutrophils Absolute Auto 8.5 x10*3/uL (2.0-8.3); Neutrophils Percent Auto 73.6 % (45-73); Platelet Count 423 X10*3/uL (160-400); Red Blood Count 4.08 X10*6/uL (4.20-5.50); Red Cell Distribution Width 20.8 % (11.0-16.0); White Blood Count 11.6 X10*3/uL (4.8-10.8)
[2021-06-19 13:49] LABS: OBS Int Ctl Valid YES; OBS1 NEGATIVE (NEGATIVE)
[2021-06-19] MEDS: 0.9 % Sodium Chloride 1,000 ML 300 ML IVCONT (13:56)
[2021-06-19] MEDS: ondansetron HCL 4 MG/2 ML VIAL IVPUSH (13:56)
[2021-06-19 14:04] LABS: Troponin-I High Sensitivity 13.2 ng/L (<3.5-17.0)
[2021-06-19 14:08] LABS: Alanine Aminotransferase 10 U/L (0-31); Albumin Level 3.8 g/dL (3.5-5.0); Alkaline Phosphatase 153 U/L (39-117); Anion Gap 15 (12-20); Aspartate Amino Transferase 17 U/L (5-31); Bilirubin Direct 0.2 mg/dL (0.0-0.5); Bilirubin Total 0.2 mg/dL (0.0-1.0); Blood Urea Nitrogen 12 mg/dL (9-16); Calcium 10.5 mg/dL (8.4-10.2); Carbon Dioxide 29 mmol/L (22-29); Chloride 99 mmol/L (96-108); Creatinine Clr Calc Pharmacy 47.2; Estimated Glomerular Filt Rate 52; Glucose Random 129 mg/dL (60-115); Lipase 15 U/L (8-78); Potassium 4.2 mmol/L (3.3-5.1); Sodium 139 mmol/L (135-145); Total Protein 6.4 g/dL (6.5-8.0)
[2021-06-19 14:11] LABS: Appearance Urine CLOUDY; Color Urine YELLOW; Glucose Urine UA NEG (NEG); Leukocyte Esterase Urine NEG (NEG); Nitrite Urine NEG (NEG); Urine Blood NEG (NEG); Urine Ketones NEG (NEG); Urine Protein NEG (NEG-TRACE)
== END 2021-06-19 15:45 | disposition home or self-care (01) ==
PROVIDERS: Emergency Provider Emergency Medicine; PCP Physician Assistant Medical
DX: R11.10 Vomiting, unspecified (principal); I48.91 Unspecified atrial fibrillation; E11.9 Type 2 diabetes mellitus without complications; I11.0 Hypertensive heart disease with heart failure; I50.9 Heart failure, unspecified; J44.9 Chronic obstructive pulmonary disease, unspecified; Z86.711 Personal history of pulmonary embolism; Z79.01 Long term (current) use of anticoagulants; Z99.81 Dependence on supplemental oxygen
CPT/HCPCS: 36415; 71045; 80048; 80076; 81003; 82272; 83690; 84484; 85025; 93005; 96361; 96374; 99284; J2405

== ENCOUNTER 2024-04-12 12:03 | Outpatient (AMB) | payer MEDICARE, SELFPAY ==
[2024-04-12 12:46] VITALS: BP 110/68; PULSE 70; TEMP 36.6; O2SAT 94
--- NOTE | 2024-04-12 12:46 | MHC.OFFWIV ---
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 Patient Tobacco Use Status: Never used Tobacco Allergies No Known Allergies [No Known Allergies*] Allergy (Verified 04/12/24 13:00) Do you need a note to return to daycare/school/sports/work: No HPI HPI Comments History of Present Illness Details This is an 83-year-old female with a past medical history of COPD currently oxygen dependent on 2 L via nasal cannula, pulmonary emboli currently anticoagulated, hypertension, [id number] diabetes and hyperlipidemia presenting for evaluation of cough, chills and subjective fevers that have been ongoing for the past 2 days. Patient states that she had to increase her oxygen requirement of 3 L today. She denies having any chest pain, otalgia, pharyngitis, nausea or vomiting. Patient has not taken any medication for management of her symptoms. [facility] Medical History Acute respiratory failure CHF (congestive heart failure) COPD (chronic obstructive pulmonary disease) COPD (chronic obstructive pulmonary disease) COVID-19 Depression Diabetes mellitus Gout Heart valve problem HTN (hypertension) Myocarditis Non-pressure chronic ulcer of skin of other sites with fat layer exposed Obesity SABRINA on CPAP Pneumonia Pulmonary embolism Pulmonary nodules Surgical History History of aortic valve replacement with bioprosthetic valve History of total right hip arthroplasty Hx of laparoscopic gastric banding Previous back surgery Family History Sister Lung cancer Mother Renal cancer Other Diabetes mellitus Social History Household Members: Family Household Members Other:: lives with her and her son Housing: House Do you presently have visiting nurse or other home services: No Alcohol intake: never Patient Tobacco Use Status: Never used Tobacco service: No Current occupational status: retired Review of Systems Const All systems reviewed & are unremarkable except as noted in HPI and below Reports chills, Reports fatigue, Reports fever(s) and Denies headache(s) Eyes Reports no additional complaints ENT Reports no additional complaints, Denies otalgia, Denies headache(s) and Denies sore throat Card Denies chest pain and Reports dyspnea Resp Reports cough and Reports dyspnea GI Reports no additional complaints, Denies diarrhea, Denies nausea and Denies vomiting Reports no additional complaints Musc Reports no additional complaints Skin/Breast Reports system reviewed and no additional complaints, except as documented Neuro Reports no additional complaints and Denies headache(s) Psych Reports no additional complaints Endo Reports no additional complaints and Reports fatigue Rylan/Lymph Reports no additional complaints Aller/Immun Reports no additional complaints Physical Exam Vital Signs: Last Vital Signs Temp 97.9 F 04/12/24 12:46 Pulse 70 04/12/24 12:46 BP 110/68 04/12/24 12:46 Pulse Ox 94 04/12/24 12:46 Oxygen Delivery Method Room Air 04/12/24 12:46 Const Other: Patient is on supplemental oxygen via nasal cannula. General: cooperative, comfortable, no acute distress, well developed, alert, awake and Physically active; No acute distress Nutritional Appearance: obese Orientation/consciousness: patient oriented x3 Limitations: wheelchair HEENT Head: Yes normal to inspection and Yes normocephalic Ears: hearing grossly normal bilaterally, external ears normal, TM's normal bilaterally and EAC's normal Face and sinus: Yes normal facial exam and Yes sinuses nontender Mouth: Normal oral and palatal mucosa present Throat: Yes posterior oropharynx normal and No postnasal drainage Eyes General: appearance normal, both eyes and all related structures Resp Effort & Inspection: normal respiratory effort, able to speak in complete sentences, no audible wheezes, Actively coughing, decreased respiratory effort, no nasal flaring and not tachypneic Auscultation: rhonchi right lower and diminished lung sounds bilateral in the lower lung salazar Cardio Rate: regular rate Rhythm: regular rhythm Skin Other: no pitting edema distal lower extremities Neuro General: patient oriented x3 Psych Appearance: grossly normal Mental Status: mental status grossly normal Insight: Good insight present (Psych) Judgement: Good judgement present (Psych) Results Reviewed Results Reviewed: CXR reviewed Assessment & Plan Assessment & Plan (1) Acute upper respiratory infection: Comment: SARS panel is ordered and pending. Code(s): J06.9 - Acute upper respiratory infection, unspecified Plan: Oxygen as needed, ibuprofen or Tylenol for any fevers that may develop. Cefpodoxime will be prescribed given the chronicity of illness. Orders: Orders SARS-CoV2/FLU/RSV Today J06.9 - Acute upper respiratory infection, unspecified XR chest 2V Today J06.9 - Acute upper respiratory infection, unspecified Medications: New cefpodoxime must administer with a meal/food 100 mg PO BID 14 tabs 0RF Coding Level of Care Code Est Pt Level 4 (85176) Diagnoses Acute upper respiratory infection J06.9
== END 2024-04-12 14:39 | disposition home or self-care (01) ==
PROVIDERS: PCP Physician Assistant Medical; Visit Provider Physician Assistant
DX: J06.9 Acute upper respiratory infection, unspecified (principal)

== ENCOUNTER 2024-04-12 12:03 | Outpatient (REF) | payer MEDICARE, SELFPAY ==
--- NOTE | ~2024-04-12 | XR_ITS ---
EXAMINATION: XR CHEST CLINICAL INFORMATION: J06.9 - Acute upper respiratory infection, unspecified COMPARISON: 06/19/2021. TECHNIQUE: 2 views of the chest were obtained. FINDINGS: The cardiac, hilar, and mediastinal contours are normal. Prior median sternotomy. Calcification of the aorta. Lungs demonstrate mild hyperaeration. There are linear opacities in the left lower lobe distribution, which could represent atelectasis and/or pneumonia. No effusion or pneumothorax. There is no focal osseous or soft tissue abnormality. There are spinal degenerative changes. XR/XR chest 2V IMPRESSION: 1. Linear opacities left lower lobe, either atelectasis or patchy pneumonia suspected. 2. Prior median sternotomy. Electronically signed by: Willy Christianson MD 04/12/2024 01:48 PM [facility]
--- OUTSIDE RECORDS SUMMARY | 2024-04-12 14:30 | XMS_ITS | Encounter Summary ---
Author Organization [facility] Address [address] [place] [address] Care Team Providers Care Picker Box Operator Name Role Phone Miguel Morrison Primary Care Provider [phone] Reason for Visit * Reason Onset Date Comments Medication Problem 03/30/2024 Encounter Details Date Type Department Care Team (Special Care Hospital Contact Info) Description 03/30/2024 Telephone [facility] [address] [facility] [address] [place] [address] Jose Guillen MD [address] [facility] [address] [place], [place] [id number] Medication Problem Social History Tobacco Use Types Packs/Day Years Used Date Smoking Tobacco: Former Cigarettes 2.5 45.9 0 [birth year]/1953 - 07/04/1999 Smokeless Tobacco: Never Alcohol Use Standard Drinks/Week Comments No 0 (1 standard drink = 0.6 oz pur e alcohol) Housing Instability Answer Date Recorde d Are you worried that in the next 2 months you may not have stable housing? No 03/09/2024 Food Access & Nutrition Answer Date Rec orded Do you have access to a vari ety of food including fruits and vegetables? Yes 03/09/2024 Access to Healthcare Answer Date Record ed Within the last 3 months, ho w many times did you visit the emergency department for your medical care? 0 03/09/2024 Health Literacy Answer Date Recorded How often do you need to hav e someone help you when you read instructions, pamphlets, or other written material from your doctor or pharmacy? Sometimes 03/09/2024 Caregiver: How often do you need to have someone help you when you read instructions, pamphlets, or other written material from your doctor or pharmacy? Not on file 03/09/2024 Financial Risk Answer Date Recorded How hard is it for you to pa y for the very basics like food, housing, medical care, and air conditioning / heating? Patient declined 03/09/2024 Transportation Answer Date Recorded Has the lack of transportati on kept you from meetings, work, or from getting things needed for daily living? No Has the lack of transportati on kept you from medical appointments or from getting medications? No 03/09/2024 Social Isolation Answer Date Recorded How often do you feel lonely or isolated from those around you? Sometimes 03/09/2024 Food Risk Answer Date Recorded Within the past 12 months we worried whether our food would run out before we got money to buy more. Never true 03/09/2024 Within the past 12 months th e food we bought just didn't last and we didn't have money to get more. Never true 03/09/2024 Dependent Care Answer Date Recorded Do you need help finding or paying for care for your loved ones. For example, director child development center or elderly care for an older adult? No 03/09/2024 Education Answer Date Recorded Do you think completing more education or training, like finishing a GED, going to college, or learning a trade, would be helpful for you? No 03/09/2024 Employment and Income Answer Date Recor ded During the last four weeks, have you been actively looking for work? No 03/09/2024 Living Situation Answer Date Recorded What is your living situation? 0 03/09/2024 Comments Unknown Sex and Gender Information Value Date Recorded Sex Assigned at Not on file Legal Sex Female 9:51 PM EST Gender Identity Not on file Sexual Orientation Not on file documented as of this encounter Progress Notes * Jose Guillen MD - 03/31/2024 6:35 PM EST Okay- you send the breztri * Cuong Garland MA - 03/31/2024 4:35 PM EST Rx request received and faxed to [facility]. * Cuong Garland MA - 03/30/2024 4:29 PM EST RYLIE 02/22/24 * Alicia Guerin - 03/30/2024 4:19 PM EST Pharmacy requesting alternative medication for: BREZTRI AERO SPHERE INHALER 120 Medication not covered by insurance. documented in this encounter Plan of Treatment Upcoming Encounters Date Type Department Care Team (Late st Contact Info) Description 06/22/2024 9:45 AM EDT Office Visit Pulmonolgy - [place] [address] [facility] [address] [place] [address] Jose Guillen MD 175 [facility] [address] [place] [address] 07/13/2024 10:30 AM EDT Office Visit [facility] [address] [phone] Miguel Morrison PA [address] [place], [place] 08/11/2024 2:45 PM EDT Office Visit Nephrology - [address] [phone] Karthik Marroquin MD [address] [facility] [address] [place] [address] documented as of this encounter Visit Diagnoses Diagnosis COPD, moderate (CMS/HCC)- Primary documented in this encounter Additional Health Concerns Assessment Noted Time PHQ-9 Depression Total Score: 0 03/09/19 25 8:56 AM EST documented as of this encounter Care Teams Picker Box Operator Relationship Specialty Start Date End Date Miguel Morrison PA [address] [place] [address] PCP - General Internal Medicine 02/16/20 documented as of this encounter
--- OUTSIDE RECORDS SUMMARY | 2024-04-12 14:30 | XMS_ITS | Clinical Summary ---
Author Organization [facility] [address] [facility] Address [address] [place] [address] Phone Care Team Providers Care Education Technician Name Role Phone Miguel Morrison Primary Care Provider [phone] Allergies Active Allergy Reactions Criticality Noted Date Comments Fentanyl 08/15/2022 delerium Medications furosemide (LASIX) 40 mg tablet TAKE 1 TABLET EVERY DAY MAY ALSO TAKE 1/2 TABLET DAILY NEEDED (IF DEVELOPS LEG SWELLING) 023 Active ferrous sulfate 325 mg (65 mg elemental iron) tablet Take 1 tablet (325 mg total) by mouth 1 (one) time each day. 024 Active azithromycin (ZITHROMAX) 500 mg tablet Take 1 tablet (500 mg total) by mouth 1 (one) time each day. 024 Active albuterol HFA (PROAIR HFA ; PROVENTIL HFA ; VENTOLIN HFA) 90 mcg/actuation inhaler Inhale 2 puffs by mouth. 024 Active acetaminophen (TYLENOL) 500 mg tablet Take by mouth. Activ e glucose blood test strip Test blood sugar 3 times daily Active Oxygen Therapy (O2) gas Administer 2-3 L into affected nostril(s). Active blood-glucose meter misc 1 Lancet by extracorporeal route 1 (one) time each day. 10/05/2 016 Active Autolet lancing device by Not Applicable route. 005 Active ONETOUCH DELICA LANCETS [facility] Test blood sugar 3 times daily 016 Active lisinopril (PRINIVIL,ZES TRIL) 40 mg tablet Take 1 tablet (40 mg total) by mouth 1 (one) time each day. 90 tablet 1 025 Active DULoxetine (CYMBALTA) [address] capsule Take 1 capsule (60 mg total) by mouth 1 (one) time each day. 90 capsule 1 025 Active colchicine (COLCRYS) 0.6 mg tablet TAKE 1 TABLET BY MOUTH DAILY NEEDED (FOR GOUT FLARE UP) 90 tablet 1 025 Active buPROPion XL (WELLBUTRIN XL) 300 mg 24 hr tablet Take 1 tablet (300 mg total) by mouth 1 (one) time each day in the morning. 90 tablet 1 025 Active allopurinoL (ZYLOPRIM) 100 mg tablet Take 1 tablet (100 mg total) by mouth 1 (one) time each day. 90 tablet 1 025 Active rosuvastatin (CRESTOR) 20 mg tablet Take 1 tablet (20 mg total) by mouth 1 (one) time each day. 90 tablet 3 025 Active potassium chloride (MICRO-K) 10 mEq CR capsule Take 2 capsules (20 mEq total) by mouth 1 (one) time each day. 90 capsule 1 025 Active omeprazole (PriLOSEC) [address] capsule Take 1 capsule (20 mg total) by mouth 2 (two) times a day. 90 capsule 1 025 Active budesonide-gl ycopyr-formot kyree (Breztri Aerosphere) 160-9-4.8 mcg/actuation HFA aerosol inhaler inhaler Inhale 2 puffs by mouth 1 (one) time each day. 1 each 1 025 Active apixaban (Eliquis) 5 mg tablet Take 1 tablet (5 mg total) by mouth 2 (two) times a day. 90 tablet 1 025 Active dilTIAZem CD (CARDIZEM CD) 180 mg 24 hr capsule Take 1 capsule (180 mg total) by mouth 1 (one) time each day. 90 each 2 025 Active potassium chloride (MICRO-K) 10 mEq CR capsule Take 2 capsules (20 mEq total) by mouth 1 (one) time each day. 024 2024 Discontinued(R eorder) omeprazole (PriLOSEC) [address] capsule Take 1 capsule (20 mg total) by mouth 2 (two) times a day. 023 2024 Discontinued(R eorder) DULoxetine (CYMBALTA) [address] capsule Take 1 capsule (60 mg total) by mouth 1 (one) time each day. 023 2024 Discontinued(R eorder) dilTIAZem XR (DILACOR XR) 180 mg 24 hr capsule Take 1 capsule (180 mg total) by mouth 1 (one) time each day. 024 2024 Discontinued colchicine (COLCRYS) 0.6 mg tablet TAKE 1 TABLET BY MOUTH DAILY NEEDED (FOR GOUT FLARE UP) 2024 Discontinued(R eorder) buPROPion XL (WELLBUTRIN XL) 300 mg 24 hr tablet Take 1 tablet (300 mg total) by mouth 1 (one) time each day in the morning. 023 2024 Discontinued(R eorder) budesonide-gl ycopyr-formot kyree (Breztri Aerosphere) 160-9-4.8 mcg/actuation HFA aerosol inhaler inhaler Inhale 2 puffs by mouth. 2024 Discontinued(R eorder) apixaban (Eliquis) 5 mg tablet Take 1 tablet (5 mg total) by mouth 2 (two) times a day. 024 2024 Discontinued(R eorder) rosuvastatin (CRESTOR) 20 mg tablet Take 1 tablet (20 mg total) by mouth 1 (one) time each day. 90 tablet 3 024 2024 Discontinued(R eorder) lisinopril (PRINIVIL,ZES TRIL) 40 mg tablet Take 1 tablet (40 mg total) by mouth 1 (one) time each day. 90 tablet 1 024 2024 Discontinued(R eorder) allopurinoL (ZYLOPRIM) 100 mg tablet Take 1 tablet (100 mg total) by mouth 1 (one) time each day. 90 tablet 1 024 2024 Discontinued(R eorder) dilTIAZem CD (CARDIZEM CD) 180 mg 24 hr capsule Take 1 capsule (180 mg total) by mouth 1 (one) time each day. 90 each 3 025 2024 Discontinued(R eorder) dilTIAZem CD (CARDIZEM CD) 180 mg 24 hr capsule Take 1 capsule (180 mg total) by mouth 1 (one) time each day. 10 each 025 2024 Discontinued Active Problems Problem Noted Date Diagnosed Date Chronic cough 12/22/2023 SOB (shortness of breath) 12/22/2023 Pulmonary hypertension 11/18/2023 Peripheral edema 11/17/2023 Overview (01/04/2024): Last Assessment & Plan: As above; may be related to heart failure but we will evaluate for venous insufficiency with bilateral venous duplex study. Secondary hypercoagulable state 07/23/2023 Typical atrial flutter 08/21/2021 Arthritis of carpometacarpal (CMC) joint of left thumb 07/06/2021 Prediabetes 05/22/2021 Primary osteoarthritis of both first carpometaca rpal joints 03/22/2021 Mitral valve stenosis 03/04/2021 Overview (01/04/2024): Mitral valve stenosis Last Assessment & Plan: Status post mitral valve replacement in August 2012. Valve appears to continue to function normally on most recent echo 10/26/2023. We will contiue to monitor with serial echocardiograms. Diastolic congestive heart failure 05/18/2020 Overview (01/04/2024): Last Assessment & Plan: The patient's most recent echocardiogram shows a preserved EF, and is quite ismilar to last echo in 2020 except that her pulmonary pressure has risen, likely secondary to both her COPD and diastolic dysfunction. She has a history of chronic dyspnea with exertion secondary to COPD and continues to use supplemental oxygen with exertion. She continues to struggle with lower extremity edema and is also noted to have fine crackles bibasilarly despite using an extra 20 mg of furosemide daily. She will increase her furosemide to 40 mg twice daily for the next 3 days with close follow up uf her renal function which has increased slightly since increasing furosemide at last visit. She will obtain compression stockings and elevate as able being mindful to not cross her legs which she did repeatedly throughout our visit and which coincides with the indentation noted at the location of her previous injury on her right krishna. We once again had a long discussion today regarding heart healthy diet including sodium restriction; she appears to feel as though she follows a low-sodium diet although specific foods she has described are quite the opposite. I have asked her to obtain a new scale so that she may monitor her weights at home and we discussed the importance of this as it relates to her heart failure. She will call us sooner for any new or worsening symptoms, seeking emergent medical attention as appropriate. Continue ACEI and loop diuretic; we may want to consider addition if SGLT2 if renal function will allow in the future. I've asked the patient to call if they develop worsening symptoms of heart failure such as increased shortness of breath, new or worsening cough, increased swelling in the legs or ankles, or weight gain of more than 2 pounds in one day or 4 pounds in one week. Paroxysmal atrial fibrillation 05/18/2020 Overview (01/04/2024): Unsuccessful MARIA ANTONIA guided cardioversion in June 2020 No symptom benefit when briefly in sinus rhythm Rate control strategy and anticoagulation with apixaban Last Assessment & Plan: Rhythm remains regular today and she was noted to be in sinus rhythm on ECG at last visit; rate remains well-controlled on diltiazem. She remains anticoagulated on full dose of Eliquis which is appropriate for her age of [age] years old; her creatinine has risen to 1.7 (baseline 1.3) and if it remains elevated above 1.5 after trial of increased furosemide, we will need to consider a reduced dose of Eliquis. We discussed the risks and benefits of continuing with anticoagulation for cardioembolic prophylaxis and she wishes to continue with the current plan. She is aware to seek emergent medical attention for any uncontrolled bleeding, signs or symptoms of GI or other internal bleeding, or for any head injury. 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 Continue with rosuvastatin. S/P mitral valve replacement 10/26/2012 Overview (01/04/2024): 09/2012 Dr. Garay Last Assessment & Plan: Her mitral valve is normally functioning on most recent MARIA ANTONIA as well as TTE. Continue routine surveillance, as well as antibiotic prophylaxis prior to dental or surgical procedures. Lung nodules 08/25/2012 Overview (01/04/2024): Multiple low suspicion lung nodules. Previous smoker, will repeat in 1 year for follow up( due in 07/2013) Obesity 10/02/2010 Overview (01/04/2024): Last Assessment & Plan: Patient is obese. Approaches towards weight loss are discussed, including burning more calories than one takes in by portion control and regular exercise with an emphasis on duration rather than intensity . COPD, moderate 05/29/2010 Overview (01/04/2024): last PFTs 03/2009; on 2.5-3 L portable oxygen with activity Last Assessment & Plan: I have requested she use her inhalers as ordered, including rescue inhaler, to see if this improves breathing at all. Continue supplemental oxygen with exertion. She will continue to follow with pulmonology. CKD (chronic kidney disease) stage 3, GFR 30-59 ml/min 05/06/2010 Overview (01/04/2024): Last Assessment & Plan: Continues to follow with Dr. Marroquin as recommended. Will update metabolic panel after the completion of increased furosemide dosing x [address] with Dr Marroquin moving forward as indicated. Microalbuminuria 05/06/2010 Status post hip replacement 05/06/2010 Obstructive sleep apnea 08/09/2009 Overview (01/04/2024): Has mask Used infrequently. [facility] Home Sleep Apnea Test: Date 10/23/2017; Wt 221#; BMI 42; VIK 7, AI 0.4; HI 6.4; Unclassified apneas 0; Obstructive apneas 3; Central apneas 0; Mixed apneas 0; hypopneas 50; average oxygen saturation 90% (lowest 80% with saturations <88% for 5% or more of study) [facility] Sleep Center Polysomnogram treatment study. Date 11/14/2018. Wt 200#; BMI 36; SE 22 % SM 30 %; spent 0 % of the study in REM. On CPAP @ 6; RDI 9 (AHI 7.2), Central apneas 0; Obstructive apneas 0; Mixed apneas 0; hypopneas 12; RERAs 3; and, average oxygen saturation was 94%. For the entire study, PLMs ~0. - Obstructive Sleep Apnea - mild; mostly hypopneas; with sleep related hypoventilation by 2018 home sleep apnea test. 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 Depression 09/07/2008 Gout 09/25/2005 Hypertension 03/13/2005 Overview (01/04/2024): Last Assessment & Plan: Blood pressure is relatively well-controlled on current medical therapy; continue lisinopril, diltiazem, and furosemide. Patient continues to follow with nephrology as per their recommendation; will continue to follow labs to assist with further treatment planning. Lumbosacral spondylosis without myelopathy 02/05 Overview (01/04/2024): SX x 2 Encounters Date Type Department Care Team Description 04/04/2024 Telephone [facility] [address] [facility] [address] [place] [address] Venancio Dobbs MD Med Refill 03/30/2024 Telephone Pulmonolgy - [place] [address] [phone] Jose Guillen MD Medication Problem 03/24/2024 Telephone [facility] 154 [address] [facility] [address] [place] [phone] Nettie Montejo MA Med Refill (Incoming fax [facility] Diltiazem 180) 03/09/2024 10:00 AM EST Office Visit Adult Medicine [address] [phone] Miguel Morrison PA Diabetes mellitus type 2 with neurological manifestations (CMS/HCC) (Primary Dx); Stage 3 chronic kidney disease, unspecified whether stage 3a or 3b CKD (CMS/HCC); COPD, moderate (CMS/HCC); Gout, unspecified cause, unspecified chronicity, unspecified site; Hyperparathyroidism (CMS/HCC); Primary hypertension; Hyperlipidemia, unspecified hyperlipidemia type; Depression, unspecified depression type; Typical atrial flutter (CMS/HCC); Paroxysmal atrial fibrillation (CMS/HCC); Prediabetes 03/08/[address] [facility] [address] [place] [phone] Cuong Garland [place] dme request ([employer] [facility] [employer]) 03/04/2024 Telephone Adult [address] [phone] Christa Persaud RN Forms/questionnaires 02/23/[address] [phone] Gretta Jameson [place] DME request 02/22/2024 10:42 AM EST - 02/22/2024 11:59 PM EST Hospital Encounter [address] [phone] Chronic cough Discharge Disposition: Home or Self Care 02/22/2024 9:30 AM EST Office Visit [address] [phone] Jose Guillen MD SABRINA (obstructive sleep apnea) (Primary Dx); COPD, severe (CMS/HCC) 01/19/2024 3:21 PM EST - 01/19/2024 11:59 PM EST Hospital Encounter [facility]EL [facility] [place] [address] Chronic cough Discharge Disposition: Home or Self Care from Last 3 Months Immunizations Name Administration Dates Next Due H1N1 Inj Preservative Free 03/22/2009 Influenza Quadravalent, 0.5m l (Fluad) 65yo and older 11/28/2022 Influenza trivalent, 0.5mL ( Fluad) 65yo and older 12/09/2021,12/30/2018 Influenza trivalent, 0.5mL, preservative free (Fluarix; FluLaval; Fluzone) ages 6mo and older (Afluria) 3 years and older 11/30/2017,12/25/2014,12/15/2012,01/11,01/02/2011,11/21/2009,12/08/2008 ,12/21/2007,12/24/2006,02/01/2006 Pneumococcal conjugate 13 va lent (Prevnar 13, PCV13) 2mo and older 11/30/2017,01/29/2015 Pneumococcal polysaccharide 23 valent (Pneumovax 23) 2yo and older 01/16/2014,12/25/2005,02/01/1993 Td Tetanus diptheria (Tdvax) 7yo and older 09/15/2018,12/31/1997 Tdap Tetanus diptheria acell ular pertussis (Boostrix; Adacel) 7yo and older 09/07/2008 Zoster Live 09/13/2008 Zoster recombinant (Shingrix ) 19yo and older 01/11/2019,11/11/2018 Surgical History Surgery Date Site/Laterality Comments OTHER SURGICAL HISTORY PROCEDURE: WA MADRID FACETECTOMY & FORAMOTOMY 1 VRT SGM LUMBAR; COMMENT: x 2 FOR DDD LAPAROSCOPIC GASTRIC BANDING 05/2010 PROCEDURE: LAP ADJUSTABLE GASTRIC BAND OTHER SURGICAL HISTORY 2012 PROCEDURE: HISTORICAL MITRAL VALVE REPL TONSILLECTOMY PROCEDURE: HISTORICAL TONSILLECTOMY COLONOSCOPY 03/17/2007 PROCEDURE: HISTORICAL COLONOSCOPY; COMMENT: Up to hepatic flexure, small polyp in transverse colon: Tubular adenoma. BE: Extreme degree of sigmoid redundancy. Mild left colonic diverticulosis. No evidence of neoplasm. HAND SURGERY 01/13/2022 Right PROCEDURE: HISTORICAL HAND SURGERY; COMMENT: right [facility] arthritis surgery Medical History Medical History Date Comments CKD (chronic kidney disease) stage 3, GFR 30-59 ml/min ([facility]) 05/06/2010 DX:CKD (chronic kidney dise ase) stage 3, GFR 30-59 ml/min ([facility]) Congestive heart failure (CH F) ([facility]) 07/07/2012 DX:Congestive heart failure (CHF) ([facility]); COMMENT: ECHO: 06/2012: LVEF 60-65%, no focal wall motion abnormalitis, moderate diastolic dysfunction with dilated right ventricle and increased LA pressure, mod-severe pulm htn and mode/severe MS. Depressive disorder 09/07/2008 DX:Depressiv e disorder Diabetes mellitus type 2 wit h neurological manifestations ([facility]) 03/19/2015 DX:Diabetes vivian itus type 2 with neurological manifestations ([facility]) Gout 09/25/2005 DX:Gout Hyperlipidemia 02/24/2014 DX:Hyperlipidemi a Hypertension 03/13/2005 DX:Hypertension LAP-BAND surgery status 10/06/2016 DX:LAP-B AND surgery status Lumbosacral spondylosis with out myelopathy 02/05/2005 DX:Lumbosacral spondylosis w ithout myelopathy; COMMENT: SX x 2 Lung nodules 08/25/2012 DX:Lung nodules; COMMENT: Multiple low suspicion lung nodules. Previous smoker, will repeat in 1 year for follow up( due in 07/2013) Microalbuminuria 05/06/2010 DX:Microalbumin uria COPD, moderate ([facility]) 05/29/2010 DX:COPD , moderate ([facility]); COMMENT: last PFTs 03/2009; on 2.5-3 L portable oxygen with activity Morbid obesity ([facility]) 10/02/2010 DX:Morb id obesity ([facility]) Obstructive sleep apnea 08/09/2009 DX:Obstr uctive sleep apnea; COMMENT: Has mask Used infreeequently S/P mitral valve replacement 10/26/2012 DX: S/P mitral valve replacement; COMMENT: 09/2012 Dr. Garay Status post hip replacement 05/06/2010 DX:S tatus post hip replacement Type 2 diabetes mellitus wit h renal manifestations, controlled ([facility]) 12/15/2012 DX:Type 2 diabete s mellitus with renal manifestations, controlled (HCC) Family History Medical History Relation Name Comments Ovarian cancer Aunt maternal (ova poly or uterine) Diabetes Maternal Grandmother Diabetes Mother Hypertension Mother Other cancer Mother kidney Thyroid disease Other cousin, mate rnal Lung cancer Sister 1 Diabetes Sister 2 Hypertension Sister 3 Relation Name Status Comments Aunt Father WWII Maternal Grandmother Mother (Age 70s) renal anamaria l cancer dm Other Sister 1 Sister 2 Sister 3 Sister 4 (Age 67) lung cance r Social History Tobacco Use Types Packs/Day Years Used Date Smoking Tobacco: Former Cigarettes 2.5 45.9 0 [birth year]/12/1953 - 07/04/1999 Smokeless Tobacco: Never Tobacco Cessation:Counseling Given: Not Answered Alcohol Use Standard Drinks/Week Comments No 0 [...] care for your loved ones. For example, child care center assistant director or elderly care for an older adult? [...] on file Sexual Orientation Not on file Obstetrics History Last Filed Vital Signs Vital Sign Reading Time Taken Comments Blood Pressure 133/54 03/09/2024 10:13 AM EST Pulse 50 03/09/2024 10:13 AM EST Temperature 35.7 ??C (96.2 ??F) 03/09/2024 10:[address] Respiratory Rate 18 03/09/2024 10:13 AM EST Oxygen Saturation 97% 02/22/2024 9:45 AM EST Inhaled Oxygen Concentration - - Weight 88.3 kg (194 lb 9.6 oz) 03/09/2024 10:13 AM EST Height 157.5 cm (5' 2 ) 03/09/2024 10:13 AM EST Body Mass Index 35.59 03/09/2024 10:13 AM EST Plan of Treatment Upcoming Encounters Date Type Department Care Team (Late st Contact Info) Description 06/22/2024 9:45 AM EDT Office Visit Pulmonolgy - [place] [address] [place] [phone] Joes Guillen MD [address] [place] [address] [place] [address] 07/13/2024 10:30 AM EDT Office Visit Adult Medicine [place] - [place] [address] [place], [place] [phone] Miguel Morrison PA [address] [place], [place] 08/11/2024 2:45 PM EDT Office Visit Nephrology - [place] [address] [place], [place] [phone] Karthik Marroquin MD [address] [phone] Health Maintenance Due Date Last Done Comments Medicare Annual Wellness Visit 02/08/2022 COVID-19 Vaccine ( season) 2023 12/18/2021, 07/31/2021, 01/03/2021, Additional history exists Influenza Vaccine (#1) 2023 , 12/09/2021, 11/16/2019, Additional history exists Diabetes: Blood Sugar Control Test (HGBA1C) 09/06/2024 03/09/2024, 11/23/2023, 07/28/2023 Diabetes: Annual Retina Eye Exam 10/07/2024 10/08/2023 Diabetes: Annual Foot Exam 10/08/2024 10/09/2023 Depression Screening 03/09/2025 03/09/2024 Diabetes: Annual Urine Albumin-Creatinine Ratio (uACR) 03/09/2025 03/09/2024, 11/23/2023 Diabetes: Annual GFR (Glomerular Filtration Rate) 03/09/2025 03/09/2024, 11/23/2023, 11/23/2023, Additional history exists Falls Risk Assessment 03/09/2025 03/09/2024 Hypertension/CHF/CAD Annual BMP Blood Test 03/09/2025 03/09/2024, 11/23/2023, 11/23/2023, Additional history exists Social Influencers of Health Screening 03/09/2025 03/09/2024 DTaP,Tdap,and Td Vaccines (4 - Td or Tdap) 09/15/2028 09/15/2018, 09/07/2008, 12/31/1997 Cholesterol Screening (Lipid Panel) 03/09/2029 03/09/2024, 11/23/2023 Osteoporosis Screening (Bone Density Screening) 08/12/2032 08/12/2017 Pneumococcal Vaccine: 50+ Years Completed 11/30/2017, 01/29/2015, 01/16/2014, Additional history exists Zoster Vaccines Completed 01/11/2019, 10/31, 09/13/2008 RSV Immunization Patients 60+ Years Old Completed 12/06/2022 HIB Vaccines Aged Out No longer eligi ble based on patient's age to complete this topic HPV Vaccines Aged Out No longer eligi ble based on patient's age to complete this topic Hepatitis A Vaccines Aged Out No long er eligible based on patient's age to complete this topic Hepatitis B Vaccines Aged Out No long er eligible based on patient's age to complete this topic IPV Vaccines Aged Out No longer eligi ble based on patient's age to complete this topic MMR Vaccines Aged Out No longer eligi ble based on patient's age to complete this topic Meningococcal ACWY Vaccine Aged Out N o longer eligible based on patient's age to complete this topic Meningococcal B Vacine Aged Out No lo nger eligible based on patient's age to complete this topic RSV Immunization Patients Under 20 months Aged Out No longer eligible based on patient's age to complete this topic Varicella Vaccines Aged Out No longer eligible based on patient's age to complete this topic Procedures Procedure Name Priority Date/Time Associated Diagnosis Comments CBC WITH AUTO DIFFERENTIAL Routine 03/09/2024 11:22 AM EST Stage 3 chronic kidney disease, unspecified whether stage 3a or 3b CKD (CMS/HCC) COPD, 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) Gout, unspecified cause, unspecified chronicity, unspecified site Hyperparathyroidism (CMS/HCC) Primary hypertension Hyperlipidemia, unspecified hyperlipidemia type Depression, unspecified depression type Typical atrial flutter (CMS/HCC) Paroxysmal atrial fibrillation (CMS/HCC) Prediabetes URIC ACID Routine 03/09/2024 11:22 AM EST Stage 3 chronic kidney disease, unspecified whether stage 3a or 3b CKD (CMS/HCC) COPD, 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) Gout, unspecified cause, unspecified chronicity, unspecified site Hyperparathyroidism (CMS/HCC) Primary hypertension Hyperlipidemia, unspecified hyperlipidemia type Depression, unspecified depression type Typical atrial flutter (CMS/HCC) Paroxysmal atrial fibrillation (CMS/HCC) Prediabetes LIPID PANEL WITH REFLEX TO DIRECT LDL Routine 03/09/2024 11:22 AM EST Stage 3 chronic kidney disease, unspecified whether stage 3a or 3b CKD (CMS/HCC) COPD, 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) Gout, unspecified cause, unspecified chronicity, unspecified site Hyperparathyroidism (CMS/HCC) Primary hypertension Hyperlipidemia, unspecified hyperlipidemia type Depression, unspecified depression type Typical atrial flutter (CMS/HCC) Paroxysmal atrial fibrillation (CMS/HCC) Prediabetes MICROALBUMIN CREATININE URINE RATIO Routine 03/09/2024 11:22 AM EST Stage 3 chronic kidney disease, unspecified whether stage 3a or 3b CKD (CMS/HCC) COPD, 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) Gout, unspecified cause, unspecified chronicity, unspecified site Hyperparathyroidism (CMS/HCC) Primary hypertension Hyperlipidemia, unspecified hyperlipidemia type Depression, unspecified depression type Typical atrial flutter (CMS/HCC) Paroxysmal atrial fibrillation (CMS/HCC) Prediabetes COMPREHENSIVE METABOLIC PANEL Routine 03/09/2024 11:22 AM EST Stage 3 chronic kidney disease, unspecified whether stage 3a or 3b CKD (CMS/HCC) COPD, 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) Gout, unspecified cause, unspecified chronicity, unspecified site Hyperparathyroidism (CMS/HCC) Primary hypertension Hyperlipidemia, unspecified hyperlipidemia type Depression, unspecified depression type Typical atrial flutter (CMS/HCC) Paroxysmal atrial fibrillation (CMS/HCC) Prediabetes HEMOGLOBIN A1C Routine 03/09/2024 11:22 AM EST Stage 3 chronic kidney disease, unspecified whether stage 3a or 3b CKD (CMS/HCC) COPD, 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) Gout, unspecified cause, unspecified chronicity, unspecified site Hyperparathyroidism (CMS/HCC) Primary hypertension Hyperlipidemia, unspecified hyperlipidemia type Depression, unspecified depression type Typical atrial flutter (CMS/HCC) Paroxysmal atrial fibrillation (CMS/HCC) Prediabetes CBC AND DIFFERENTIAL Routine 03/09/2024 11:22 AM EST Stage 3 chronic kidney disease, unspecified whether stage 3a or 3b CKD (CMS/HCC) COPD, 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) Gout, unspecified cause, unspecified chronicity, unspecified site Hyperparathyroidism (CMS/HCC) Primary hypertension Hyperlipidemia, unspecified hyperlipidemia type Depression, unspecified depression type Typical atrial flutter (CMS/HCC) Paroxysmal atrial fibrillation (CMS/HCC) Prediabetes IRON AND TIBC Routine 03/09/2024 11:22 AM EST Stage 3 chronic kidney disease, unspecified whether stage 3a or 3b CKD (CMS/HCC) COPD, 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) Gout, unspecified cause, unspecified chronicity, unspecified site Hyperparathyroidism (CMS/HCC) Primary hypertension Hyperlipidemia, unspecified hyperlipidemia type Depression, unspecified depression type Typical atrial flutter (CMS/HCC) Paroxysmal atrial fibrillation (CMS/HCC) Prediabetes PARATHYROID HORMONE INTACT Routine 03/09/2024 11:22 AM EST Stage 3 chronic kidney disease, unspecified whether stage 3a or 3b CKD (CMS/HCC) COPD, 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) Gout, unspecified cause, unspecified chronicity, unspecified site Hyperparathyroidism (CMS/HCC) Primary hypertension Hyperlipidemia, unspecified hyperlipidemia type Depression, unspecified depression type Typical atrial flutter (CMS/HCC) Paroxysmal atrial fibrillation (CMS/HCC) Prediabetes XR CHEST 2 VIEWS Routine 02/22/2024 10:53 AM EST Chronic cough XR CHEST 2 VIEWS Routine 01/19/2024 3:25 PM EST Chronic cough DXA BONE DENSITY STUDY 1+ SITS AXIAL SKEL Routine 08/12/2017 10:37 AM EDT Encounter for screening for osteoporosis Stage 3 chronic kidney disease (CMS/HCC) Hyperparathyroidism, unspecified (CMS/HCC) from Last 3 Months or Most Recently Relevant to Health Maintenance Results * Lipid panel with reflex to direct LDL (03/09/2024 11:22 AM EST) Cholesterol 165 0 - 200 mg/dL LAB CHEMISTRY METHOD 03/09/2024 3:11 PM EST [facility] Triglycerides 126 0 - 150 mg/dL LAB CHEMISTRY METHOD 03/09/2024 3:11 PM EST [facility] HDL 86 >=40 mg/dL LAB CHEMISTRY METHOD 03/09/2024 3:11 PM [facility] LDL Calculated 54 0 - 100 mg/dL LAB CHEMISTRY METHOD 03/09/2024 3:11 PM EST [facility] VLDL Cholesterol Jonathan 25.2 mg/dL LAB CHEMISTRY METHOD 03/09/2024 3:11 PM EST [facility] Non HDL Chol. (LDL+VLDL) 79 <145 mg/dL LAB CHEMISTRY METHOD 03/09/2024 3:11 PM EST [facility] Chol/HDL Ratio 1.9 0.0 - 4.4 LAB CHEMISTRY METHOD 03/09/2024 3:11 PM EST [facility] Blood Venous blood specimen / Unknown Venipuncture / Unknown 03/09/2024 11:22 AM EST 03/09/2024 11:22 AM EST us Miguel KWON LAB BLOOD ORDERABLES Dede l Result [facility] [address] [place] [address], * (ABNORMAL) CBC auto differential (03/09/2024 11:22 AM EST) WBC 15.7(H) 4.8 - 10.8 K/mcL LAB HEMETOLOGY METHOD 03/09/2024 3:57 PM [facility] RBC 3.90 3.80 - 4.80 M/mcL LAB HEMETOLOGY METHOD 03/09/2024 3:57 PM [facility] Hemoglobin 11.2(L) 11.5 - 16.0 g/dL LAB HEMETOLOGY METHOD 03/09/2024 3:57 PM [facility] Hematocrit 38.3 35.0 - 47.0 % LAB HEMETOLOGY METHOD 03/09/2024 3:57 PM [facility] MCV 99.0(H) 79.0 - 98.0 FL LAB HEMETOLOGY METHOD 03/09/2024 3:57 PM [facility] MCH 28.9 27.0 - 32.0 pcg LAB HEMETOLOGY METHOD 03/09/2024 3:57 PM [facility] MCHC 29.2(L) 32.0 - 37.0 g/dL LAB HEMETOLOGY METHOD 03/09/2024 3:57 PM [facility] RDW 15.9(H) 11.0 - 15.0 % LAB HEMETOLOGY METHOD 03/09/2024 3:57 PM [facility] Platelets 397 130 - 400 K/mcL LAB HEMETOLOGY METHOD 03/09/2024 3:57 PM [facility] MPV 12.1(H) 7.0 - 11.0 FL LAB HEMETOLOGY METHOD 03/09/2024 3:57 PM [facility] NRBC 0.0 <1.0 % LAB HEMETOLOGY METHOD 03/09/2024 3:57 PM [facility] NRBC Absolute 0.00 <0.10 K/mcL LAB HEMETOLOGY METHOD 03/09/2024 3:57 PM [facility] Neutrophils Relative 65.8 % LAB HEMETOLOGY METHOD 03/09/2024 3:57 PM [facility] Lymphocytes Relative 22.4 % LAB HEMETOLOGY METHOD 03/09/2024 3:57 PM [facility] Monocytes Relative 9.1 % LAB HEMETOLOGY METHOD 03/09/2024 3:57 PM [facility] Eosinophils Relative 1.8 % LAB HEMETOLOGY METHOD 03/09/2024 3:57 PM [facility] Basophils Relative 0.6 % LAB HEMETOLOGY METHOD 03/09/2024 3:57 PM [facility] Immature Granulocytes Relative 0.3 % LAB HEMETOLOGY METHOD 03/09/2024 3:57 PM [facility] Neutrophils Absolute 10.32(H) 1.50 - 7.00 K/mcL LAB HEMETOLOGY METHOD 03/09/2024 3:57 PM [facility] Lymphocytes Absolute 3.51 1.00 - 5.00 K/mcL LAB HEMETOLOGY METHOD 03/09/2024 3:57 PM [facility] Monocytes Absolute 1.43(H) 0.20 - 1.00 K/mcL LAB HEMETOLOGY METHOD 03/09/2024 3:57 PM [facility] Eosinophils Absolute 0.28 0.00 - 0.50 K/mcL LAB HEMETOLOGY METHOD 03/09/2024 3:57 PM [facility] Basophils Absolute 0.09 0.00 - 0.20 K/mcL LAB HEMETOLOGY METHOD 03/09/2024 3:57 PM [facility] Immature Granulocytes Absolute 0.05(H) 0.00 - 0.03 K/mcL LAB HEMETOLOGY METHOD 03/09/2024 3:57 PM [facility] Blood Venous blood specimen / Unknown Venipuncture / Unknown 03/09/2024 11:22 AM EST 03/09/2024 11:22 AM EST Miguel KWON LAB BLOOD ORDERABLES Dede l Result Performing Organization Address [facility]/ZIP Co de Phone Number [facility] [address] [place] [address], [place] [phone] * (ABNORMAL) Iron and TIBC (03/09/2024 11:22 AM EST) Iron 50 40 - 150 mcg/dL LAB CHEMISTRY METHOD 03/09/2024 3:06 PM EST [facility] TIBC 437 250 - 450 mcg/dL LAB CHEMISTRY METHOD 03/09/2024 3:06 PM EST [facility] Iron Saturation 11(L) 15 - 50 % LAB CHEMISTRY METHOD 03/09/2024 3:06 PM EST [facility] Blood Venous blood specimen / Unknown Venipuncture / Unknown 03/09/2024 11:22 AM EST 03/09/2024 11:22 AM EST Miguel KWON LAB BLOOD ORDERABLES Dede l Result Performing Organization Address [facility]/ZIP Co de Phone Number [facility] [address] [place] [address], [place] [phone] * Microalbumin creatinine urine ratio (03/09/2024 11:22 AM EST) Creatinine, Urine 111.0 mg/dL LAB CHEMISTRY METHOD 03/09/2024 3:36 PM EST [facility] Microalb, Ur 19.8 0.0 - 29.0 mg/L LAB CHEMISTRY METHOD 03/09/2024 3:36 PM EST [facility] Microalb/Creat Ratio 18 <30 mg/g creat LAB CHEMISTRY METHOD 03/09/2024 3:36 PM EST [facility] Urine Urine specimen obtained by clean catch procedure / Unknown Non-blood Collection / Unknown 03/09/2024 11:22 AM EST 03/09/2024 11:22 AM EST Miguel KWON LAB URINE ORDERABLES Dede l Result Performing Organization Address [facility]/ZIP Co de Phone Number [facility] [address] [place] [address], [place] [phone] * Uric acid (03/09/2024 11:22 AM EST) [facility] Uric Acid 5.1 3.1 - 7.8 mg/dL LAB CHEMISTRY METHOD 03/09/2024 3:06 PM EST [facility] Blood Venous blood specimen / Unknown Venipuncture / Unknown 03/09/2024 11:22 AM EST 03/09/2024 11:22 AM EST Miguel KWON LAB BLOOD ORDERABLES Dede l Result Performing Organization Address [facility] Co de Phone Number [facility] [address] [place] [address], [place] [phone] * (ABNORMAL) Parathyroid hormone intact (03/09/2024 11:22 AM EST) [facility] PTH 114.1(H) 18.5 - 88.0 pcg/mL LAB CHEMISTRY METHOD 03/09/2024 2:41 PM EST [facility] Blood Venous blood specimen / Unknown Venipuncture / Unknown 03/09/2024 11:22 AM EST 03/09/2024 11:22 AM EST Miguel KWON LAB BLOOD ORDERABLES Dede l Result Performing Organization Address City/[facility]/ZIP Co de Phone Number [facility] [address] [place] [address], [place] [phone] * Hemoglobin A1c (03/09/2024 11:22 AM EST) Hemoglobin A1C 6.0 <6.5 % LAB CHEMISTRY METHOD 03/09/2024 7:52 PM [facility] Mean Bld Glu Estim. 126 mg/dL LAB CHEMISTRY METHOD 03/09/2024 7:52 PM [facility] Blood Venous blood specimen / Unknown Venipuncture / Unknown 03/09/2024 11:22 AM EST 03/09/2024 11:22 AM EST Miguel KWON LAB BLOOD ORDERABLES Dede l Result [facility] [address] [place] [address], * (ABNORMAL) Comprehensive metabolic panel (03/09/2024 11:22 AM EST) Sodium 138 133 - 145 mmol/L LAB CHEMISTRY METHOD 03/09/2024 3:06 PM [facility] Potassium 4.5 3.5 - 5.5 mmol/L LAB CHEMISTRY METHOD 03/09/2024 3:06 PM [facility] Chloride 102 96 - 110 mmol/L LAB CHEMISTRY METHOD 03/09/2024 3:06 PM [facility] CO2 24 21 - 32 mmol/L LAB CHEMISTRY METHOD 03/09/2024 3:06 PM [facility] Anion Gap 12(H) 3 - 11 LAB CHEMISTRY METHOD 03/09/2024 3:06 PM [facility] Glucose 158(H) 70 - 100 mg/dL LAB CHEMISTRY METHOD 03/09/2024 3:06 PM [facility] BUN 17 5 - 25 mg/dL LAB CHEMISTRY METHOD 03/09/2024 3:06 PM [facility] Creatinine 1.60(H) 0.50 - 1.10 mg/dL LAB CHEMISTRY METHOD 03/09/2024 3:06 PM [facility] eGFR 32(L) >=60 mL/min/1. 73m2 LAB CHEMISTRY METHOD 03/09/2024 3:06 PM [facility] Comment:Calculation based on the??Chronic Kidney Disease Epidemiology Collaboration (CKD-EPI) equation refit??without adjustment for race. BUN/Creatinine Ratio 10.6 LAB CHEMISTRY METHOD 03/09/2024 3:06 PM [facility] Calcium 10.8(H) 8.5 - 10.5 mg/dL LAB CHEMISTRY METHOD 03/09/2024 3:06 PM [facility] AST (SGOT) 18 10 - 42 unit/L LAB CHEMISTRY METHOD 03/09/2024 3:06 PM [facility] ALT (SGPT) 18 10 - 60 unit/L LAB CHEMISTRY METHOD 03/09/2024 3:06 PM [facility] Alkaline Phosphatase 138(H) 42 - 121 unit/L LAB CHEMISTRY METHOD 03/09/2024 3:06 PM [facility] Total Protein 6.7 6.0 - 8.0 g/dL LAB CHEMISTRY METHOD 03/09/2024 3:06 PM [facility] Albumin 3.8 3.2 - 5.0 g/dL LAB CHEMISTRY METHOD 03/09/2024 3:06 PM [facility] Total Bilirubin 0.6 0.0 - 1.4 mg/dL LAB CHEMISTRY METHOD 03/09/2024 3:06 PM [facility] Blood Venous blood specimen / Unknown Venipuncture / Unknown 03/09/2024 11:22 AM EST 03/09/2024 11:22 AM EST us Miguel KWON LAB BLOOD ORDERABLES Dede craven Result [facility] [address] [place] [address], * XR Chest 2 Views (02/22/2024 10:53 AM EST) Only the most recent of2 resultswithin the time period is included. Anatomical Region Laterality Modality Body Radiographic Sravanthi ging 02/22/2024 10:5 9 AM EST Impressions 02/22/2024 11:03 AM EST Impression: No acute radiographic findings. -------- FINAL REPORT -------- Dictated By: Harris Lama Dictated Date: 02/22/2024 10:59 ET Assigned Physician: Harris Lama Reviewed and Electronically Signed By: Harris Lama Signed Date: 02/22/2024 11:03 ET Workstation ID: [id number] Transcribed By: Self Edit Transcribed Date: 02/22/2024 10:59 ET Narrative 02/22/2024 11:03 AM EST History: Chronic cough. ??Abnormal chest x-ray. Chest PA and lateral: Compared to 01/19/2024 some subtle left basilar patchy densities seen previously has resolved. ??A prominent left epicardial fat pad is again noted. ??Otherwise the lungs are clear. ??There are no infiltrates or effusions. The vasculature is not congested. The cardiac and mediastinal silhouettes appear normal. ??Degenerative changes are again noted in the spine. Procedure Note Harris Lama MD - 02/22/2024 History: Chronic cough. Abnormal chest x-ray. Chest PA and lateral: Compared to 01/19/2024 some subtle left basilarpatchy densities seen previously has resolved. A prominent leftepicardial fat pad is again noted. Otherwise the lungs are clear. Thereare no infiltrates or effusions. The vasculature is not congested. Thecardiac and mediastinal silhouettes appear normal. Degenerative changesare again noted in the spine. IMPRESSION: Impression: No acute radiographic findings. -------- FINAL REPORT -------- Dictated By: Harris Lama Dictated Date: 02/22/2024 10:59 ET Assigned Physician: Harris Lama Reviewed and Electronically Signed By: Harris Lama Signed Date: 02/22/2024 11:03 ET Workstation ID: [id number] Transcribed By: Self Edit Transcribed Date: 02/22/2024 10:59 ET us Lauren Cates MD IMG XR PROCEDURES Final Res ult * DXA BONE DENSITY STUDY 1+ SITS AXIAL SKEL (08/12/2017 10:37 AM EDT) Anatomical Region Laterality Modality Bone Densitometr y 07/10/2017 10:5 9 AM EDT Narrative 08/12/2017 12:21 PM EDT BONE DENSITY ? Left Wrist T-score is -0.5 ?? (SD relative to 20-29 y/o adult) Z-score is +1.9 ??(SD relative to age matched peers) This is normal by criteria defined by the WHO. Left Hip T-score is +0.2 Z-score is +2.3 This is normal by criteria defined by the WHO. Comparison exam(s): significant decrease in bone density of ??hip when compared to most recent bone density examination ?? Confidence level is +/-95%. Impression: Based on the World Health Organization criteria, Cindi Katz should be classified as having normal bone density. [facility] Department of Internal Medicine recommends using National Osteoporosis Foundation (NOF) guidelines in treatment decisions related to osteoporosis. NOF guidelines suggest considering treatment for postmenopausal women and men aged 50 or older presenting with the following: History of hip or vertebral fracture. T-score less than or equal to -2.5 (DXA) at the femoral neck, total hip, or spine, after appropriate evaluation to exclude secondary causes. Low bone mass (T-score between -1.0 and -2.5 at the femoral neck or spine) AND a 10-year probability of a hip fracture greater than or equal to 3% OR a 10-year probability of a major osteoporosis-related fracture greater than or equal to 20% based on the [place]-adapted WHO algorithm Please note that all treatment decisions require clinical judgment and consideration of individual patient factors, including patient preferences, co-morbidities, previous drug use, risk factors not captured in the FRAX model (e.g., frailty, falls, vitamin D deficiency, increased bone turnover, interval significant decline in bone density) and possible under- or over-estimation of fracture risk by FRAX. Procedure Note Harris Lama MD - 02/18/2022 BONE DENSITY Left Wrist T-score is -0.5 (SD relative to 20-29 y/o adult) Z-score is +1.9 (SD relative to age matched peers) This is normal by criteria defined by the WHO. Left Hip T-score is +0.2 Z-score is +2.3 This is normal by criteria defined by the WHO. Comparison exam(s): significant decrease in bone density of hip whencompared to most recent bone density examination Confidence level is +/-95%. Impression: Based on the World Health Organization criteria, Cindi Craven Felicitylyndsey shouldbe classified as having normal bone density. [facility] Department of Internal Medicine recommendsusing National Osteoporosis Foundation (NOF) guidelines in treatmentdecisions related to osteoporosis. NOF guidelines suggest consideringtreatment for postmenopausal women and men aged 50 or older presentingwith the following: History of hip or vertebral fracture. T-score less than or equal to -2.5 (DXA) at the femoral neck, total hip,or spine, after appropriate evaluation to exclude secondary causes. Low bone mass (T-score between -1.0 and -2.5 at the femoral neck or spine)AND a 10-year probability of a hip fracture greater than or equal to 3% ORa 10-year probability of a major osteoporosis-related fracture greaterthan or equal to 20% based on the [place]-adapted WHO algorithm Please note that all treatment decisions require clinical judgment andconsideration of individual patient factors, including patientpreferences, co-morbidities, previous drug use, risk factors not capturedin the FRAX model (e.g., frailty, falls, vitamin D deficiency, increasedbone turnover, interval significant decline in bone density) and possibleunder- or over-estimation of fracture risk by FRAX. Miguel KWON Casimiro DXA PROCEDURES Final Result from Last 3 Months or Most Recently Relevant to Health Maintenance Insurance MEDICARE [facility] Care Teams Education Technician Relationship Specialty Start Date End Date Miguel Morrison PA [address] [place] [address] PCP - General Internal Medicine 02/16/20
--- OUTSIDE RECORDS SUMMARY | 2024-04-12 14:30 | XMS_ITS | Encounter Summary ---
Author Organization [facility] Address [address] [place] [address] Care Team Providers Care Senior Software Engineering Manager Name Role Phone Miguel Morrison Primary Care Provider [phone] Reason for Visit * Reason Onset Date Comments Med Refill 03/24/2024 Incoming fax Exp ress scripts Diltiazem 180 Encounter Details Date Type Department Care Team (Late st Contact Info) Description 03/24/2024 Telephone [facility] - [facility] [address] [facility] [address] [place] [address] Nettie Montejo [place] Med Refill (Incoming fax Express scripts Diltiazem 180) Social History Tobacco Use Types Packs/Day Years [...] care for your loved ones. For example, childcare worker or elderly care for an older adult? [...] on file documented as of this encounter Ordered Prescriptions Prescription Sig Dispense Quantity Refills Last Filled Start Date End Date dilTIAZem CD (CARDIZEM CD) 180 mg 24 hr capsule Take 1 capsule (180 mg total) by mouth 1 (one) time each day. 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 Labs documented in this encounter Plan of Treatment Upcoming Encounters Date Type Department Care Team (Late st Contact Info) Description 06/22/2024 9:45 AM EDT Office Visit Pulmonolgy - [place] [address] [facility] [address] [place] [address] Jose Guillen MD 175 [facility] [address] [place] [address] 07/13/2024 10:30 AM EDT Office Visit [facility] - [place] [address] [place], [place] [phone] Miguel Morrison PA [address] [place], [place] [phone] 08/11/2024 2:45 PM EDT Office Visit Nephrology - [place] [address] [place] [address] Karthik Marroquin MD [address] [facility] [address] [place] [address] documented as of this encounter Visit Diagnoses Not on filedocumented in this encounter Discontinued Medications Medication Sig Discontinue Reason Start Date End Da te dilTIAZem XR (DILACOR XR) 180 mg 24 hr capsule Take 1 capsule (180 mg total) by mouth 1 (one) time each day. 08/13/2023 03/24/2024 documented as of this encounter Additional Health Concerns Assessment Noted Time PHQ-9 Depression Total Score: 0 03/09/19 25 8:56 AM EST documented as of this encounter Care Teams Senior Software Engineering Manager Relationship Specialty Start Date End Date Miguel Morrison PA [address] [place] [address] PCP - General Internal Medicine 02/16/20 documented as of this encounter
--- OUTSIDE RECORDS SUMMARY | 2024-04-12 14:30 | XMS_ITS | Encounter Summary ---
Author Organization [facility] Address [address] [place] [address] Care Team Providers Care Nurses Medical Assistants Phlebotomists Name Role Phone Miguel Morrison Primary Care Provider [phone] Reason for Visit * Reason Onset Date Comments Med Refill 04/04/2024 Encounter Details Date Type Department Care Team (Late st Contact Info) Description 04/04/2024 Telephone [facility] - [facility] [address] [address] Venancio Dobbs MD [address] [address] Med Refill Social History Tobacco Use Types Packs/Day Years [...] care for your loved ones. For example, early childhood services coordinator or elderly care for an older adult? [...] (one) time each day. 90 each 2 04/08/2024 dilTIAZem CD (CARDIZEM CD) 180 mg 24 hr capsule Take 1 capsule (180 mg total) by mouth 1 (one) time each day. 10 each 04/04/2024 documented in this encounter Progress Notes * Torres Montejo MA - 04/08/2024 4:45 PM ESTAddended by: TORRES MONTEJO on: 04/08/2024 04:45 PM Modules accepted: Orders * Torres Montejo [place] - 04/08/2024 4:45 PM EST Incoming fax from [facility] diltiazem renewed. * Torres Montejo [place] - 04/04/2024 12:00 PM EST Sent * Carey Donnelly - 04/04/2024 11:29 AM EST The patients harish Jones called requesting a 10 day refill for Diltiazem 180 mg, 1 tablet daily. Please send to the local pharmacy as they are still waiting for the order from [employer]. documented in this encounter Plan of Treatment Upcoming Encounters Date Type Department Care Team (Late st Contact Info) Description 06/22/2024 9:45 AM EDT [facility] [address] [phone] Jose Guillen MD 175 [facility] [address] [place] [address] 07/13/2024 10:30 AM EDT Office Visit Adult Medicine [address] [phone] Miguel Morrison PA [address] [place] [address] 08/11/2024 2:45 PM EDT Office Visit Nephrology - [place] [address] [place] [address] Karthik Marroquin MD [address] [phone] documented as of this encounter Visit Diagnoses Not on filedocumented in this encounter Discontinued Medications Medication Sig Discontinue Reason Start Date End Da te dilTIAZem CD (CARDIZEM CD) 180 mg 24 hr capsule Take 1 capsule (180 mg total) by mouth 1 (one) time each day. Reorder 03/24/2024 04/04/2024 dilTIAZem CD (CARDIZEM CD) 180 mg 24 hr capsule Take 1 capsule (180 mg total) by mouth 1 (one) time each day. 04/04/2024 04/08/2024 documented as of this encounter Additional Health Concerns Assessment Noted Time PHQ-9 Depression Total Score: 0 03/09/19 25 8:56 AM EST documented as of this encounter Care Teams Nurses Medical Assistants Phlebotomists Relationship Specialty Start Date End Date Miguel Morrison PA [address] [place] [address] PCP - General Internal Medicine 02/16/20 documented as of this encounter
[2024-04-12 17:22] LABS: Influenza A PCR NEGATIVE (Negative); Influenza B PCR NEGATIVE (Negative); Resp Syncy Virus RNA Qual PCR NEGATIVE (Negative); SARS COV2 PCR INHOUSE NEGATIVE (Negative)
== END 2024-04-12 12:04 | disposition home or self-care (01) ==
LOC: HO.HMGCX 12:03
PROVIDERS: PCP Physician Assistant Medical; Visit Provider Physician Assistant
DX: J06.9 Acute upper respiratory infection, unspecified (principal); J44.9 Chronic obstructive pulmonary disease, unspecified; I10 Essential (primary) hypertension; E11.9 Type 2 diabetes mellitus without complications; Z86.711 Personal history of pulmonary embolism; Z79.01 Long term (current) use of anticoagulants; Z99.81 Dependence on supplemental oxygen
CPT/HCPCS: 0241U; 71046; 99212

== ENCOUNTER → 2024-04-12 13:24 | Outpatient (BNV) | payer MEDICARE, SELFPAY | PROVIDERS: PCP Physician Assistant Medical; Visit Provider Radiology Diagnostic Radiology | DX: J06.9 Acute upper respiratory infection, unspecified (principal) | CPT/HCPCS: 71046 ==

== ENCOUNTER 2024-10-19 15:59 | Inpatient (IN) | payer MEDICARE, SELFPAY ==
--- NOTE | 2024-10-19 | ECG_ITS ---
Test Reason : CHEST TIGHTNESS Blood Pressure : */* mmHG Vent. Rate : 62 BPM Atrial Rate : 234 BPM P-R Int : * ms QRS Dur : 116 ms QT Int : 346 ms P-R-T Axes : * -64 34 degrees QTcB Int : 351 ms Poor data quality Possible Atrial flutter with 4:1 A-V conduction Left axis deviation Minimal voltage criteria for LVH, may be normal variant ( Alonzo product ) Nonspecific ST and T wave abnormality Abnormal ECG When compared with ECG of 19-Jun-2021 14:04, Poor data quality in current ECG precludes serial comparison Referred By: Generic ED Physician Electronically Signed By: FRAN PABON MD
--- NOTE | ~2024-10-19 | CT_ITS ---
CLINICAL HISTORY: dyspnea, chf vs pna CT chest without contrast Comparison: None provided Findings: Normal heart size. Severe mitral annular calcification 1 cm nodule within the left lobe of the thyroid gland. Numerous mediastinal lymph nodes measuring up to 15 mm in short axis dimension. Dilatation of the esophagus with gas and fluid. There are moderate bilateral pleural effusions. There are ground-glass opacities and areas of septal thickening within the bilateral lungs. There are foci of atelectasis within the bilateral lower lungs. There is a gastric band. There is no acute abnormality of the visualized abdomen. The bones are intact. IMPRESSION: 1. Moderate bilateral pleural effusions. Mild interstitial edema. 2. There is dilatation of the esophagus which is distended with gas and fluid. This may be secondary to achalasia. This document has been electronically signed by: Sharifa Luna MD on 10/19/2024 20:57:20
--- NOTE | ~2024-10-19 | XR_ITS ---
CLINICAL HISTORY: SOB 1 view chest x-ray Comparison: CR/SR - XR CHEST 2 VIEWS - 04/12/24 13:32 EST Findings: Airspace opacities within the bilateral lower lungs. Possible small bilateral pleural effusions. Borderline heart size. Prior sternotomy. No acute fracture. IMPRESSION: 1. Atelectasis and/or infiltrate and/or edema within the bilateral lower lungs. 2. Possible small bilateral pleural effusions. This document has been electronically signed by: Sharifa Luna MD on 10/19/2024 17:58:17
[2024-10-19 16:14] VITALS: BP 163/71; PULSE 74; PULSE 80; RESP 22; O2SAT 100; O2SAT 97; BMI 36.1
--- NOTE | 2024-10-19 16:42 | ED.SOB ---
HPI - SOB/Dyspnea General Chief Complaint: Dyspnea Stated Complaint: sob, weakness, chest tightness Time Seen by Provider: 10/19/24 16:33 Source: patient, family and EMS Mode of arrival: EMS Limitations: no limitations History of Present Illness ED Provider: HPI Narrative: 84-year-old woman with history of COPD, on CPAP and oxygen at home as needed, presenting with shortness of breath and a secondary complaint of dark appearing urine, she was reported a low 80s wheezy for EMS, received nebulizer treatments with some improvement but continues to have some shortness of breath denies chest pain fevers or chills reports intermittent back pain. Has had no dysuria or hematuria. Nonsmoker Related Data Home Medications ?Medication ?Instructions ?Recorded ?Confirmed allopurinol 100 mg tablet 100 mg PO DAILY 01/30/20 06/13/21 bupropion HCl 150 mg 24 hr tablet, 150 mg PO DAILY@1700 01/30/20 06/13/21 extended release bupropion HCl 300 mg 24 hr tablet, 300 mg PO DAILY 01/30/20 06/13/21 extended release duloxetine 60 mg capsule,delayed 60 mg PO DAILY 01/30/20 06/13/21 release fluticasone fur. 100 mcg-umeclid 1 inh inhalation DAILY 01/30/20 06/13/21 62.5 mcg-vilant 25 mcg inhalat.powder (Trelegy Ellipta) omeprazole 20 mg capsule,delayed 20 mg PO DAILY@0630 01/30/20 06/13/21 release potassium chloride 10 mEq 40 meq PO DAILY 01/30/20 06/13/21 capsule,extended release rosuvastatin 20 mg tablet 20 mg PO DAILY 01/30/20 06/13/21 apixaban 5 mg tablet 5 mg PO BID 08/17/20 06/13/21 diltiazem HCl 180 mg 180 mg PO DAILY 08/17/20 06/13/21 capsule,extended release 24 hr, controlled (DILT-XR) lisinopril 20 mg tablet 20 mg PO DAILY 08/18/20 06/13/21 albuterol sulfate 90 mcg/actuation 2 puff inhalation Q6H PRN 06/13/21 06/13/21 aerosol inhaler Shortness Of Breath cholecalciferol (vitamin D3) 50 50 mcg PO BEDTIME 06/13/21 06/13/21 mcg (2,000 unit) tablet docusate sodium 50 mg capsule 50 mg PO DAILY PRN Constipation 06/13/21 06/13/21 ferrous sulfate 325 mg (65 mg 325 mg PO DAILY 06/13/21 06/13/21 iron) tablet furosemide 40 mg tablet 40 mg PO DAILY 06/13/21 06/13/21 buspirone 7.5 mg tablet 7.5 mg PO BID 10/19/24 colchicine 0.6 mg tablet 0.6 mg PO DAILY 10/19/24 Previous Rx's ?Medication ?Instructions ?Recorded ondansetron 4 mg disintegrating 4 mg PO Q8H PRN nausea and 06/19/21 tablet vomiting #14 tabs Allergies Allergy/AdvReac Type Severity Reaction Status Date / Time fentanyl Allergy Difficulty Verified 10/19/24 16:31 Breathing Review of Systems Constitutional: Constitutional: Reports as per [facility] Past Medical History Medical History Non-pressure chronic ulcer of skin of other sites with fat layer exposed COPD (chronic obstructive pulmonary disease) Pulmonary nodules Myocarditis Pneumonia Acute respiratory failure Gout Depression Obesity CHF (congestive heart failure) SABRNIA on CPAP Diabetes mellitus Pulmonary embolism COVID-19 HTN (hypertension) Heart valve problem COPD (chronic obstructive pulmonary disease) Surgical History History of aortic valve replacement with bioprosthetic valve History of total right hip arthroplasty Hx of laparoscopic gastric banding Previous back surgery Family History Family History Sister Lung cancer Mother Renal cancer Other Diabetes mellitus Social History Social History Household Members: Family Household Members Other:: lives with her and her son Housing: House Do you presently have visiting nurse or other home services: No Unable to assess alcohol history related to: Unable to respond Alcohol intake: never Patient Tobacco Use Status: Never used Tobacco Smoked in Last 30 Days: No Use of substances other than those prescribed or required for medical reasons: No Advance Directives: No Advance Directives Information Provided: Yes Do you have a plan to hurt others: No Plan Nutrition Risks: No Nutritional Risk service: No Current occupational status: retired Physical Exam Vital Signs: Vital Signs: Last Vital Signs Temp 98.2 F 10/19/24 20:04 Pulse 76 10/19/24 20:04 Resp 20 10/19/24 20:04 BP 147/59 H 10/19/24 20:04 Pulse Ox 94 10/19/24 20:04 O2 Del Method Room Air 10/19/24 20:04 O2 Flow Rate 1 10/19/24 19:12 Oxygen Flow Rate 2 10/19/24 16:14 BMI result Body Mass Index 36.1 Const: Other: Gen: ?Overall well-appearing patient HEENT: PERRLA, EOMI, MMM, Neck: Supple, no LAD CV: RRR, no obvious murmurs appreciated Resp: No rales, slight expiratory wheezing Abd: ?Bowel sounds are present, no tenderness no rebound no rigidity MSK: FROM, strength 5/5 all extremities, no lower extremity edema Skin: Warm, dry, intact, Neuro: ?Alert and oriented x3, moving upper and lower extremities symmetrically, no obvious facial asymmetry noted Medications Administered Discontinued Medications Generic Name Dose Route Start Last Admin Trade Name Freq PRN Reason Stop Dose Admin Ceftriaxone Sodium 2 gm 10/19/24 18:47 10/19/24 19:06 Ceftriaxone Sodium 2 Gm Vial IVPUSH 10/19/24 18:48 2 gm ONCE ONE Administration Albuterol Sulfate 5 mg/ 0 mg 10/19/24 17:31 10/19/24 17:40 Albuterol/Ipratropium 3 ml INHALE 10/19/24 17:32 1 each ONCE ONE Administration Furosemide 40 mg 10/19/24 17:42 10/19/24 18:32 Furosemide 40 Mg/4 Ml Vial IVPUSH 10/19/24 17:43 40 mg ONCE ONE Administration Protocol Methylprednisolone Sodium Succinate 60 mg 10/19/24 16:43 10/19/24 17:01 Methylprednisolone Sod Succ 125 Mg/2 Ml Vial IVPUSH 10/19/24 16:44 60 mg ONCE ONE Administration Medical Decision Making Medical Decision Making [facility] Narrative: Presenting with shortness of breath does have history of COPD and CHF, reportedly hypoxic at home, admit the time of elevation still endorses some dyspnea, difficult to tell whether this is mild heart failure or COPD exacerbation we will provide additional nebulizer treatments, we will workup for CHF, there were no apparent rales, no weight gain no pitting edema, disposition to be determined. Her ECG does not reveal any evidence for underlying ACS or the underlying dysrhythmia. Five hundred forty-three thus far patient's workup is suggestive of CHF based on chest x-ray, BNP highest it has been, slightly elevated troponin, likely demand overall anticipating admission 0645: Patient is meeting adult SIRS criteria, chest x-ray with what my impression was pulmonary edema and pleural effusions but also possibly underlying infectious etiology, we will obtain blood cultures, start IV antibiotics, and if lactate is elevated over 4 I will administer fluids but with a fluid occlusion bolus given the fact that she also appears to have CHF. Differential Diagnosis Differential Diagnoses: The differential diagnosis associated with the presentation includes (CHF, COPD exacerbation, pneumonia, pneumothorax, ACS, PE,) Admission/Observation Consideration of admission/observation: Escalation of care including admission/observation considered 2022 Emergency Medicine Coding Guide from [employer] on 10/19/2024 All calculations should be rechecked by clinician prior to use RESULT SUMMARY: 5 Estimated Level of Service Problems: High (5) Risk: High (5) Data: Extensive (5) NARRATIVE MDM: This patient's problem complexity is High as patient: with chronic illness(es) with severe exacerbation/progression/side effects. This patient's risk is High due to: overall presentation requiring evaluation for a potentially High-risk process. This patient's data complexity is Extensive due to: -multiple tests ordered/reviewed -independent interpretation of imaging or EKG INPUTS: Number and Complexity ?> 1 = 5: chronic illness w/severe exacerbation (a) Risk level ?> 4 = High Tests ordered ?> 3 = =3 Tests results reviewed (excluding labs) ?> 2 = 2 Prior external notes reviewed ?> 0 = 0 Assessment requiring and independent historian ?> 0 = No Independent interpretation of tests ?> 1 = Yes Discussed management/test interpretation w/external professional ?> 0 = No Lab Data [facility] Lab Attestation statement: I reviewed the patient's lab results. 10/19/24 17:01 10/19/24 18:05 Labs: Lab Results 10/19/24 10/19/24 10/19/24 Range/Units 17:00 17:01 18:05 WBC 15.3 H (4.8-10.8) X10*3/uL RBC 4.26 (4.20-5.50) X10*6/uL Hgb 12.6 (12.0-16.0) g/dl Hct 38.6 (37.0-47.0) % MCV 90.6 (80.0-98.0) fL MCH 29.6 (27.0-33.0) pg MCHC 32.6 (31.0-35.0) g/dl RDW 17.1 H (11.0-16.0) % Plt Count 255 D (160-400) X10*3/uL MPV 11.1 (9.4-12.3) fL Immature Gran % (Auto) 0.4 (0.0-0.4) % Neut % (Auto) 74.9 H (45-73) % Lymph % (Auto) 11.4 L (20-40) % [place] % (Auto) 12.5 H (2-11) % Eos % (Auto) 0.5 (0-4) % Baso % (Auto) 0.3 (0-2) % Lymph # (Auto) 1.7 (1.2-4.9) X10*3/uL [place] # (Auto) 1.9 H (0.1-1.2) X10*3/uL Eos # (Auto) 0.1 (0.0-0.4) X10*3/uL Baso # (Auto) 0.0 (0.0-0.2) X10*3/uL Abs Immat Gran (auto) 0.06 H (0.00-0.03) X10*3/uL Absolute Neuts (auto) 11.5 H (2.0-8.3) x10*3/uL Absolute Nucleated RBC 0.000 (0.0-0.012) X10*3/uL Nucleated RBC % (auto) 0.0 (0.0-0.2) /100WBC Smear Tech's Comments VERIFIED Sodium 144 (135-145) mmol/L Potassium 3.8 (3.3-5.1) mmol/L Chloride 103 (96-108) mmol/L Carbon Dioxide 30 H (22-29) mmol/L Anion Gap 15 (12-20) BUN 9 (9-16) mg/dL Creatinine 0.68 (0.5-1.4) mg/dL Estim Creat Clear Calc 61.3 Estimated GFR > 60 Random Glucose 100 (60-115) mg/dL Lactic Acid (0.5-2.0) mmol/L Calcium 9.9 (8.4-10.2) mg/dL Troponin I High Sens 36.6 H (<3.5-17.0) ng/L B-Natriuretic Peptide 706 H (<100) pg/mL Influenza Type A (PCR) NEGATIVE (Negative) Influenza Type B (PCR) NEGATIVE (Negative) RSV RNA Qual (PCR) NEGATIVE (Negative) SARS-CoV-2 RNA (RT-PCR) NEGATIVE (Negative) 10/19/24 Range/Units 19:03 WBC (4.8-10.8) X10*3/uL RBC (4.20-5.50) X10*6/uL Hgb (12.0-16.0) g/dl Hct (37.0-47.0) % MCV (80.0-98.0) fL MCH (27.0-33.0) pg MCHC (31.0-35.0) g/dl RDW (11.0-16.0) % Plt Count (160-400) X10*3/uL MPV (9.4-12.3) fL Immature Gran % (Auto) (0.0-0.4) % Neut % (Auto) (45-73) % Lymph % (Auto) (20-40) % [place] % (Auto) (2-11) % Eos % (Auto) (0-4) % Baso % (Auto) (0-2) % Lymph # (Auto) (1.2-4.9) X10*3/uL [place] # (Auto) (0.1-1.2) X10*3/uL Eos # (Auto) (0.0-0.4) X10*3/uL Baso # (Auto) (0.0-0.2) X10*3/uL Abs Immat Gran (auto) (0.00-0.03) X10*3/uL Absolute Neuts (auto) (2.0-8.3) x10*3/uL Absolute Nucleated RBC (0.0-0.012) X10*3/uL Nucleated RBC % (auto) (0.0-0.2) /100WBC Smear Tech's Comments Sodium (135-145) mmol/L Potassium (3.3-5.1) mmol/L Chloride (96-108) mmol/L Carbon Dioxide (22-29) mmol/L Anion Gap (12-20) BUN (9-16) mg/dL Creatinine (0.5-1.4) mg/dL Estim Creat Clear Calc Estimated GFR Random Glucose (60-115) mg/dL Lactic Acid 1.9 (0.5-2.0) mmol/L Calcium (8.4-10.2) mg/dL Troponin I High Sens (<3.5-17.0) ng/L B-Natriuretic Peptide (<100) pg/mL Influenza Type A (PCR) (Negative) Influenza Type B (PCR) (Negative) RSV RNA Qual (PCR) (Negative) SARS-CoV-2 RNA (RT-PCR) (Negative) Independent Interpretation I performed an independent interpretation of an: EKG (62 beats per minute otherwise normal ECG without dysrhythmia, AV shayan blocks or ST-T changes to suspect underlying ACS, my independent interpretation) and Plain X-Ray (Increased vascular congestion, bilateral pleural effusions all) Independent Historian Clinical information obtained from an independent historian. History obtained from or confirmed by: EMS Critical Care Time Critical Care Time Critical Care Time: Yes Total Critical Care Time: 45 Attestation: Time is exclusive of separately billable procedures. Time includes: direct patient care, patient reassessment, coordination of patient care, interpretation of data (laboratory data, pulse oximetry, arterial blood gases and chest xrays), review of patient's medical records, medical consultation and documentation of patient care. Procedures excluded from critical care time: central intravenous line placement and electrocardiography. Discharge Plan Discharge Clinical Impression: Acute exacerbation of CHF (congestive heart failure), Community acquired pneumonia Patient Disposition: Admitted As Inpatient
--- OUTSIDE RECORDS SUMMARY | 2024-10-19 16:43 | XMS_ITS | Clinical Summary ---
Author Organization [facility] Address [address] [place] [id number] Phone Care Team Providers Care Ground Support Agent Name Role Phone Lowell Washington MD Primary Care Provider + Social History Tobacco Use Types Packs/Day Years Used Date Smoking Tobacco: Never Assessed Education Answer Date Recorded Are you interested in more education? Not on lolly e 06/28/2022 Are you concerned about learning? Not on file 06/28/2022 No 06/28/2022 No 06/28/2022 Digital Access Answer Date Recorded No 07/29/2022 No 07/29/2022 Reliable internet access at home? Not on file 07/29/2022 Device with a working camera? Not on file Comments Unknown Sex and Gender Information Value Date Recorded Sex Assigned at Not on file Legal Sex Female 9:16 AM EST Gender Identity Not on file Sexual Orientation Not on file Plan of Treatment Not on file Medical Devices Not on file [place] [id number] [facility] MEDEX SUPPLEMENT MEDICARE PART A & B Member Subscriber Plan / Payer ( fective 2007-) Name:Cindi Katz Member ID:[id number] Relation to Subscriber:Self Name:Cindi Katz Subscriber ID:[id number] Payer ID:[id number] Group ID:Not on file Type:Medicare Address: [facility] [employer] [facility] [address] [place] [phone] [facility] MEDEX SUPPLEMENT MEDICARE PART A & B [employer] MEDEX SUPPLEMENT MEDICARE PART A & B [employer] MEDEX SUPPLEMENT MEDICARE PART A & B [employer] MEDEX SUPPLEMENT MEDICARE PART A & B [employer] MEDEX SUPPLEMENT MEDICARE PART A & B [employer] MEDEX SUPPLEMENT MEDICARE PART A & B [employer] MEDEX SUPPLEMENT MEDICARE PART A & B [employer] MEDEX SUPPLEMENT Care Teams Ground Support Agent Relationship Specialty Start Date End Date Lowell Washington MD [address] [place] [id number] PCP - General Internal Medicine 01/28/21 Additional Source Comments The information contained in this document represents components of the legal health record. It is not the complete legal health record.[facility]
--- OUTSIDE RECORDS SUMMARY | 2024-10-19 16:43 | XMS_ITS | Clinical Summary ---
Author Organization [facility] Facility Address [address] [place] [address] Care Team Providers Care Radarman Name Role Phone Unavailable Primary Care Provider Unavailabl e Allergies Active Allergy Reactions Criticality Noted Date Comments Fentanyl 08/15/2022 delerium Encounters Date Type Department Care Team Description 08/15/2024 Orders Only [facility] [address] [address] [phone] Karthik Marroquin MD Anemia in chronic kidney disease (Primary Dx) 08/12/2024 Telephone [facility] [address] [phone] Jannette Gonzales from Last 3 Months Social History Tobacco Use Types Packs/Day Years Used Date Smoking Tobacco: Never Assessed Comments Unknown Sex and Gender Information Value Date Recorded Sex Assigned at Not on file Legal Sex Female 11:58 AM EDT Gender Identity Not on file Sexual Orientation Not on file Plan of Treatment Health Maintenance Due Date Last Done Comments Diabetes: Ophthalmology Exam 08/12/2024 Diabetes: Pedal Pulse Checked 08/12/2024 Diabetes: Sensory Foot Exam 08/12/2024 Diabetes: Visual Foot Exam 08/12/2024 Diabetes: Hemoglobin A1C 10/06/2024 07/06/2024 Influenza Vaccine (#1) 2024 3, 12/09/2021, 12/30/2018, Additional history exists Pneumococcal Vaccine: 50+ Years Completed 11/30/2017, 01/29/2015, 01/16/2014, Additional history exists Hepatitis B Vaccine Aged Out No longe r eligible based on patient's age to complete this topic
--- OUTSIDE RECORDS SUMMARY | 2024-10-19 16:43 | XMS_ITS ---
Author Name [facility] Organization Unknown Care Team Organization Name Specialty Phone Email Start Date End Da te [facility] 10/19/2024 [facility] 01/07/2022
[2024-10-19 17:16] LABS: Hematocrit 38.6 % (37.0-47.0); Hemoglobin 12.6 g/dl (12.0-16.0); Imm Gran Abs Auto 0.06 X10*3/uL (0.00-0.03); Imm Gran Pct Auto 0.4 % (0.0-0.4); Lymphocytes Absolute Auto 1.7 X10*3/uL (1.2-4.9); MANUAL DIFF FLAG SCAN; Mean Corpuscular HGB Conc 32.6 g/dl (31.0-35.0); Mean Corpuscular Hemoglobin 29.6 pg (27.0-33.0); Mean Corpuscular Volume 90.6 fL (80.0-98.0); NRBC Abs Auto 0.000 X10*3/uL (0.0-0.012); NRBC Pct Auto 0.0 /100WBC (0.0-0.2); Platelet Count 255 X10*3/uL (160-400); Red Blood Count 4.26 X10*6/uL (4.20-5.50); SCAN SMEAR FLAG 1; White Blood Count 15.3 X10*3/uL (4.8-10.8)
[2024-10-19 17:39] LABS: B Type Natriuretic Peptide 706 pg/mL (<100)
[2024-10-19] MEDS: Albuterol Sulfate 5 MG, Albuterol/Iprat 2.5/0.5MG 3 ML 3 ML INHALE (17:40)
[2024-10-19 17:41] VITALS: PULSE 56; RESP 17; O2SAT 95
[2024-10-19 17:41] LABS: Troponin-I High Sensitivity 36.6 ng/L (<3.5-17.0)
[2024-10-19 17:55] LABS: Resp Syncy Virus RNA Qual PCR NEGATIVE (Negative); SARS COV2 PCR INHOUSE NEGATIVE (Negative)
[2024-10-19 18:25] LABS: Anion Gap 15 (12-20); Blood Urea Nitrogen 9 mg/dL (9-16); Calcium 9.9 mg/dL (8.4-10.2); Carbon Dioxide 30 mmol/L (22-29); Chloride 103 mmol/L (96-108); Creatinine Clr Calc Pharmacy 61.3; Estimated Glomerular Filt Rate > 60; Potassium 3.8 mmol/L (3.3-5.1); Sodium 144 mmol/L (135-145)
[2024-10-19 18:30] VITALS: BP 142/46; PULSE 73; RESP 20; TEMP 36.9; O2SAT 94
[2024-10-19 18:32] VITALS: BP 142/46
[2024-10-19] MEDS: Furosemide 40 MG/4 ML VIAL IVPUSH (18:32)
[2024-10-19 19:12] VITALS: BP 110/85; PULSE 76; RESP 16; O2SAT 93
[2024-10-19 19:39] LABS: Appearance Urine Clear; Glucose Urine UA Negative (Negative); PH 5.5 (5.0-9.0); Specific Gravity - Urine 1.010 (1.005-1.025); UMIC TRIGGER UACC YES
--- NOTE | 2024-10-19 19:53 | PM.IMHP ---
History of Present Illness Date of Service: 10/19/24 Chief Complaint: Dyspnea This has a 84-year-old female with pertinent history of chronic hypoxemic respiratory failure due to COPD on baseline 3 L supplemental oxygen, mood disorder, history of PE and paroxysmal atrial flutter on Eliquis, gout, congestive heart failure with preserved ejection fraction who presents to the emergency department for evaluation of dyspnea. Patient states he has been having dyspnea which is worse with exertion and worse when lying flat. No cough reported. No fever or chills. She denies chest pain or palpitations. No lower extremity leg swelling. Patient states her symptoms have been progressive over the last few days and got worse on the day of presentation. She has been compliant with home medications. No abdominal pain, changes in urinary or bowel habits. In the emergency department, BNP found to be elevated and imaging concerning for pulmonary edema. Patient was given IV lasix in the ER. Review of Systems Constitutional: Constitutional: Reports fatigue, Reports malaise and Reports weakness Cardiovascular: Cardiovascular: Reports dyspnea on exertion and Reports orthopnea Respiratory: Respiratory: Reports dyspnea on exertion Neurologic: Reports weakness Endocrine: Endocrine: Reports fatigue [facility] Medical History Non-pressure chronic ulcer of skin of other sites with fat layer exposed COPD (chronic obstructive pulmonary disease) Pulmonary nodules Myocarditis Pneumonia Acute respiratory failure Gout Depression Obesity CHF (congestive heart failure) SABRINA on CPAP Diabetes mellitus Pulmonary embolism COVID-19 HTN (hypertension) Heart valve problem COPD (chronic obstructive pulmonary disease) Family History Sister Lung cancer Mother Renal cancer Other Diabetes mellitus Surgical History Previous back surgery History of aortic valve replacement with bioprosthetic valve Hx of laparoscopic gastric banding History of total right hip arthroplasty Social History Household Members: Family Household Members Other:: lives with her and her son Housing: House Do you presently have visiting nurse or other home services: No Unable to assess alcohol history related to: Unable to respond Alcohol intake: never Patient Tobacco Use Status: Never used Tobacco Smoked in Last 30 Days: No Use of substances other than those prescribed or required for medical reasons: No Advance Directives: No Advance Directives Information Provided: Yes Do you have a plan to hurt others: No Plan Nutrition Risks: No Nutritional Risk service: No Current occupational status: retired Meds Allergies Allergy/AdvReac Type Severity Reaction Status Date / Time fentanyl Allergy Difficulty Verified 10/19/24 16:31 Breathing Home Medications ?Medication ?Instructions ?Recorded ?Confirmed ?Last Taken ?Type allopurinol 100 mg tablet 100 mg PO DAILY 01/30/20 10/19/24 10/19/24 History bupropion HCl 150 mg 24 hr tablet, 150 mg PO DAILY@1700 01/30/20 10/19/24 10/18/24 History extended release bupropion HCl 300 mg 24 hr tablet, 300 mg PO DAILY 01/30/20 10/19/24 10/18/24 History extended release duloxetine 60 mg capsule,delayed 60 mg PO DAILY 01/30/20 10/19/24 10/18/24 History release omeprazole 20 mg capsule,delayed 20 mg PO DAILY@0630 01/30/20 10/19/24 10/18/24 History release potassium chloride 10 mEq 10 meq PO BID 01/30/20 10/19/24 10/18/24 History capsule,extended release rosuvastatin 20 mg tablet 20 mg PO BEDTIME 01/30/20 10/19/24 10/18/24 History apixaban 5 mg tablet 5 mg PO BID 08/17/20 10/19/24 10/19/24 History diltiazem HCl 180 mg 180 mg PO DAILY 08/17/20 10/19/24 10/19/24 History capsule,extended release 24 hr, controlled (DILT-XR) lisinopril 20 mg tablet 20 mg PO DAILY 08/18/20 10/19/24 10/19/24 History albuterol sulfate 90 mcg/actuation 2 puff inhalation Q6H PRN 06/13/21 10/19/24 Unknown History aerosol inhaler Shortness Of Breath cholecalciferol (vitamin D3) 50 50 mcg PO BEDTIME 06/13/21 10/19/24 10/18/24 History mcg (2,000 unit) tablet docusate sodium 50 mg capsule 50 mg PO DAILY PRN Constipation 06/13/21 10/19/24 Unknown History ferrous sulfate 325 mg (65 mg 325 mg PO Q48H 06/13/21 10/19/24 10/17/24 History iron) tablet furosemide 40 mg tablet 40 mg PO DAILY 06/13/21 10/19/24 10/18/24 History budesonide 160 mcg-glycopyr 9 2 inh inhalation BID 10/19/24 10/19/24 10/19/24 History mcg-formot 4.8 mcg/actuation HFA inhaler (Breztri Aerosphere) buspirone 7.5 mg tablet 7.5 mg PO BID 10/19/24 10/19/24 10/19/24 History colchicine 0.6 mg tablet 0.6 mg PO DAILY 10/19/24 10/19/24 10/18/24 History Physical Exam Vital Signs and Narrative: Vital Signs: Last Vital Signs Temp 98.4 F 10/19/24 18:30 Pulse 76 10/19/24 19:12 Resp 16 10/19/24 19:12 BP 110/85 10/19/24 19:12 Pulse Ox 93 10/19/24 19:12 O2 Del Method Nasal Cannula 10/19/24 19:12 O2 Flow Rate 1 10/19/24 19:12 Oxygen Flow Rate 2 10/19/24 16:14 BMI result Body Mass Index 36.1 Const: Other: Elderly female lying in bed in mild distress on supplemental oxygen Neck supple Regular rate and rhythm, S1-S2 heard Bilateral crackles appreciated Abdomen soft nontender, no guarding, no rigidity Patient is awake, alert and oriented x3 ; no focal motor deficit Psych: Normal mood Mild pedal edema Results Labs 10/19/24 17:01 10/19/24 18:05 Labs: Laboratory Results - last 24 hr 10/19/24 10/19/24 10/19/24 17:00 17:01 18:05 MCV 90.6 MCH 29.6 MCHC 32.6 RDW 17.1 H Plt Count 255 D MPV 11.1 Immature Gran % (Auto) 0.4 Neut % (Auto) 74.9 H Lymph % (Auto) 11.4 L Lamb % (Auto) 12.5 H Eos % (Auto) 0.5 Baso % (Auto) 0.3 Lymph # (Auto) 1.7 Lamb # (Auto) 1.9 H Eos # (Auto) 0.1 Baso # (Auto) 0.0 Abs Immat Gran (auto) 0.06 H Absolute Neuts (auto) 11.5 H Absolute Nucleated RBC 0.000 Nucleated RBC % (auto) 0.0 Smear Tech's Comments VERIFIED Anion Gap 15 Estim Creat Clear Calc 61.3 Estimated GFR > 60 Random Glucose 100 Lactic Acid Calcium 9.9 B-Natriuretic Peptide 706 H Urine Color Urine Appearance Urine pH Ur Specific [place] Urine Protein Urine Glucose (UA) Urine Ketones Urine Blood Urine Nitrite Ur Leukocyte Esterase Influenza Type A (PCR) NEGATIVE Influenza Type B (PCR) NEGATIVE RSV RNA Qual (PCR) NEGATIVE SARS-CoV-2 RNA (RT-PCR) NEGATIVE 10/19/24 10/19/24 19:03 19:26 MCV MCH MCHC RDW Plt Count MPV Immature Gran % (Auto) Neut % (Auto) Lymph % (Auto) Lamb % (Auto) Eos % (Auto) Baso % (Auto) Lymph # (Auto) Lamb # (Auto) Eos # (Auto) Baso # (Auto) Abs Immat Gran (auto) Absolute Neuts (auto) Absolute Nucleated RBC Nucleated RBC % (auto) Smear Tech's Comments Anion Gap Estim Creat Clear Calc Estimated GFR Random Glucose Lactic Acid 1.9 Calcium B-Natriuretic Peptide Urine Color Yellow Urine Appearance Clear Urine pH 5.5 Ur Specific [place] 1.010 Urine Protein 30 (1+) H Urine Glucose (UA) Negative Urine Ketones Negative Urine Blood Trace H Urine Nitrite Negative Ur Leukocyte Esterase Trace H Influenza Type A (PCR) Influenza Type B (PCR) RSV RNA Qual (PCR) SARS-CoV-2 RNA (RT-PCR) Assessment and Plan (1) Acute exacerbation of CHF (congestive heart failure): Status: Acute Plan This has a 84-year-old female with pertinent history of chronic hypoxemic respiratory failure due to COPD on baseline 3 L supplemental oxygen, mood disorder, history of PE and paroxysmal atrial flutter on Eliquis, gout, congestive heart failure with preserved ejection fraction who presents to the emergency department for evaluation of dyspnea. #. Acute on chronic congestive heart failure with preserved ejection fraction: Will admit patient with IV diuresis. Strict I's and O's. Patient refused low-salt diet. Will repeat transthoracic echocardiogram. Scheduled and p.r.n. DuoNebs for cardiac wheezing. #. Chronic hypoxemic respiratory failure due to COPD: DuoNebs as above. Continue home inhaler. Defer steroids as can cause worsening of CHF. #. Leukocytosis, reactive #. Dilatation of esophagus on imaging. Patient without any symptoms currently. Continue to monitor #. Mood disorder: Continue home mood stabilizers #. Proximal atrial flutter: On Eliquis Med rec pending DVT prophylaxis: Eliquis Full code. Discussed with patient at bedside Admit as inpatient and will require two night minimum hospital stay for IV diuresis (as above), which is not possible in a lesser acute setting. Quality Stroke Does the patient have a stroke diagnosis?: No VTE Prior VTE?: No VTE Risk Level:: Medical - moderate - high VTE Device Contraindication: Treatment Not Indicated VTE Drug Contraindication: N/A - Med Ordered
[2024-10-19 20:04] VITALS: BP 147/59; PULSE 76; RESP 20; TEMP 36.8; O2SAT 94
--- NOTE | 2024-10-19 21:07 | PHA.MEDREC ---
Pharmacy Consult ? Medication Reconciliation Pharmacy has completed the medication reconciliation. Spoke with pt son at bedside and he was able to confirm the pt medications. Per son pt, takes her Colchicine as needed for gout (pt has not really needed it since starting on Allopurinol), takes her Iron tablets Q48h (pt last took it Thursday but not able to take this Am) and is taking Breztri 2 puffs BID per son.
--- NOTE | 2024-10-19 21:16 | PHA.MEDREC ---
Addendum entered by Mina Lindsey [facility] 10/19/24 21:21: Reviewed by [facility] Addendum entered by Melida Arshad 10/19/24 21:20: Per son pt taking Omeprazole QD not BID as prescribed. Original Note: Pharmacy Consult ? Medication Reconciliation Pharmacy has completed the medication reconciliation. Spoke with pt son at bedside and he was able to confirm the pt medications. Per son pt, takes her Colchicine as needed for gout (pt has not really needed it since starting on Allopurinol), takes her Iron tablets Q48h (pt last took it Thursday but not able to take this Am) and is taking Breztri 2 puffs BID per son. Pt son confirmed pt is not taking Lorazepam anymore and is now taking Buspirone for anxiety.
[2024-10-20] VITALS (9 sets, daily range): BP systolic 140–170; BP diastolic 50–72; PULSE 74–97; RESP 16–22; TEMP 36.4–36.9; O2SAT 74–99; BMI 35.7
--- NOTE | 2024-10-20 01:45 | PC.NURSE ---
Report received and care assumed at 2300. Staff to bedside to answer callbell shortly after 0115. Pt requesting need for toileting, up with a 1 person assist to bedside commode. Pt noted to be winded and short of breath upon returning to the bed however never desatted and O2 always remains above 90 with O2 via NC in place and with rest she was able to regain her breath and is now comfortably sitting in the stretcher. The pt reports always waking with a headache and requested additional tylenol to be given if able; unfortunately the pt is not yet due for additional medicine. She reports difficulty sleeping s/t alarms from monitors and a close by patient in the room across the rodriguez; RN offered her ear plugs to assist with quiet and relaxation
[2024-10-20 05:53] LABS: MANUAL DIFF FLAG NO
[2024-10-20 06:16] LABS: Hematocrit 37.1 % (37.0-47.0); Hemoglobin 11.9 g/dl (12.0-16.0); Imm Gran Abs Auto 0.04 X10*3/uL (0.00-0.03); Imm Gran Pct Auto 0.4 % (0.0-0.4); Lymphocytes Absolute Auto 0.8 X10*3/uL (1.2-4.9); Mean Corpuscular HGB Conc 32.1 g/dl (31.0-35.0); Mean Corpuscular Hemoglobin 28.8 pg (27.0-33.0); Mean Corpuscular Volume 89.8 fL (80.0-98.0); NRBC Abs Auto 0.000 X10*3/uL (0.0-0.012); NRBC Pct Auto 0.0 /100WBC (0.0-0.2); Platelet Count 264 X10*3/uL (160-400); Red Blood Count 4.13 X10*6/uL (4.20-5.50); White Blood Count 10.0 X10*3/uL (4.8-10.8)
[2024-10-20 06:21] LABS: Anion Gap 15 (12-20); Blood Urea Nitrogen 10 mg/dL (9-16); Calcium 10.3 mg/dL (8.4-10.2); Carbon Dioxide 29 mmol/L (22-29); Chloride 103 mmol/L (96-108); Creatinine Clr Calc Pharmacy 50.7; Estimated Glomerular Filt Rate > 60; Potassium 3.9 mmol/L (3.3-5.1); Sodium 143 mmol/L (135-145)
--- NOTE | 2024-10-20 07:00 | CA_ITS ---
Transthoracic Echocardiogram Patient (Last, First, Middle): Cindi Katz, Gender: Female Date of : 1940 Age: 84 Procedure Date: 10/20/2024 Procedure Type: Transthoracic Echocardiogram Location: ER Height: 152.4 cm Weight: 83.92 kg BSA: 1.81 m2 Heart Rate: 76 bpm BP: 147 / 59 mmHg Needle Molder: JAREN/ELMER Referring MD: Idalmis Graham MD Drill Press Operator For Metal: Shawn Ross MD Symptoms: CHF Study Quality: Adequate w contrast ECG Rhythm: Sinus Conclusions: - 1. Normal LV ejection fraction 65-70% 2. Biatrial enlargement, right greater than left 3. Mild aortic stenosis 4. Significantly increased gradient across bioprosthetic mitral valve suggestive of significant stenosis 5. Moderate to severe elevation of right ventricular systolic pressure 6. No pericardial effusion Findings Procedure Information Contrast agent, definity, is being given per protocol without apparent complications. Left Ventricle Normal left ventricular size, thickness, and systolic function. The visually estimated ejection fraction is between 65-70%. Diastolic function is indeterminate on the basis of available data. Right Ventricle Mildly increased right ventricular cavity size. There is normal right ventricular systolic function. Atria The left atrium is mildly dilated. There is no evidence of interatrial shunt. The right atrium is moderately dilated. Aortic Valve There is mild calcification of the aortic valve. There is mild aortic valve stenosis. There is no aortic valve regurgitation. Mitral Valve A bioprosthetic mitral valve is present. The prosthetic mitral valve appears to be functioning abnormally. 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 Pulmonic Valve The pulmonic valve is likely normal. Tricuspid Valve Normal tricuspid valve structure. There is mild tricuspid valve regurgitation. Normal right atrial pressure. Moderate to severe pulmonary hypertension is present. Great Vessels All visible segments of the aorta are normal in size. The pulmonary artery was not well visualized. Venous The inferior vena cava is normal in size and collapses greater than 50% with inspiration. Pericardium/Pleural There is no evidence of pericardial effusion. Prior Study Comparison Changes noted compared to prior study dated: 01/31/2020. RV systolic pressures are further elevated. Gradient across bioprosthetic mitral valve significantly increased to 13 mm Hg suggestive of stenosis of the valve. Measurements 2D Linear Measurements IVSd: 0.97 0.6-0.9/0.6-1.0 cm LVIDd: 4.37 3.9-5.3/4.2-5.9 cm LVIDd Index: 2.41 2.4-3.2/2.2-3.1 cm/m2 LVIDs: 2.49 2.0-3.6 cm LVPWd: 1.01 0.7-1.1 cm LA Diam: 3.70 2.7-3.8/3.0-4.0 cm LAIDs Index: 2.04 1.5-2.3 cm/m2 LV Mass: 178.87 67-162/88-224 g LV Mass Index: 98.82 43-95/49-115 g/m2 LVOT Diam: 1.80 3.0+(-)1.3 cm 2D Systolic Function EF 4C: 57.20 >55% EF 2C: 73.70 >55% EF BiP: 67.20 >55% Mitral Valve MV VTI: 0.74 MV Pk Rito: 2.65 MV Mn Rito: 1.65 MV Pk Grad: 28.00 MV Mn Grad: 13.00 MV Pk E: 1.91 MV PK A: 1.37 MV Decel Time: 268.00 E/A: 1.40 E'Lateral: 11.90 E'Medial: 5.87 E/E' Med: 32.50 E/E' Lat: 16.10 PHT: 78.00 MVA PHT: 2.82 MVA Continuity: 1.00 Decel Uinta: 7.13 Aortic Valve AoV Pk Rito: 2.14 AoV Mn Rito: 1.40 AoV VTI: 0.43 AoV Pk Grad: 18.00 Aov Mn Grad: 9.00 ALONDRA Cont.VTI: 1.73 LVOT LVOT Pk Rito: 1.30 LVOT Mn Rito: 1.00 LVOT VTI: 0.29 LVOT Pk Grad: 7.00 LVOT Mn Grad: 4.00 LVOT Diam: 1.80 LVOT Area: 2.54 Diastolic Function MV Pk E: 1.91 MV Pk A: 1.37 E/A: 1.40 E'Medial: 5.87 E/E' Med: 32.50 E' Laterial: 11.90 E/E' Lat: 16.10 Right Ventricle TAPSE (mm): 21.70 TVS' Rito: 14.00 Tricuspid Valve TR Pk Rito: 3.66 TR Pk Grad: 58.00 RA Press: 3.00 RVSP: 61.00 Great Vessels Aorta Sinus of Valsalva: 2.60 2.0-3.5 cm Ao Asc: 2.80 2.1-3.4 cm Pulmonary Veins Pulm Vein S/D 0.70 Pulmonary Valve PV Pk Rito: 1.27 Peak PV Grad: 6.00 Updated in Other Vendor System with Status of Final Shawn Ross MD electronically signed on 10/20/2024 4:41:49 PM with status of Final
[2024-10-20 07:16] LABS: Glucose, Whole Blood 148 mg/dL (60-115)
[2024-10-20] MEDS: Albuterol/Iprat 2.5/0.5MG 3 ML AMPUL.NEB INHALE ×4 (07:55→19:52)
[2024-10-20] MEDS: dilTIAZem HCL CD 180 MG CAP.ER.24H PO (08:46)
[2024-10-20] MEDS: Potassium Chloride ER 10 MEQ TABLET.ER PO ×2 (08:47→20:00)
[2024-10-20] MEDS: buPROPion HCl XL 300 MG TAB.ER.24H PO (08:47)
[2024-10-20] MEDS: Furosemide 40 MG/4 ML VIAL IVPUSH (08:47)
[2024-10-20] MEDS: 0.9 % Sodium Chloride Flush 3 ML SYRINGE IVFLUSH ×3 (08:51→20:03)
--- NOTE | 2024-10-20 14:50 | MHC.SL.SWA ---
Speech Pathologist Impression: Risk of Aspiration Due to: Dysphasia Diet Status: Liquid Consistency and Strategies for Safe Swallow: Liquid Intake Recommendation: Thin Liquid Intake Strategies: Solid Food Consistency: Dietary Recommendations: Regular Additional Modifications to Solid Foods: Elect softer foods from regular menu to accommodate dentures. Oral Medication Intake: Whole with Liquid Please contact the pharmacy regarding appropriate crushable or liquid drug formulations that are available whenever modified delivery is recommended. Compensatory Strategies and Precautions to be Taken for Safe Swallow: Supervision While Eating and Drinking for Safe Swallow: None Needed Foods to Avoid: Tough difficult to chew solids, secondary to dentures. Swallowing Recommended Treatments: Recommendation for Speech: NA:Typical Evaluation Comment: Patient presents with all aspects of oral motor function (with the exception of dentures due to absent dentition) and swallow WFL. Patient denied any history of GERD, difficulty swallowing, globus sensation. Patient does have history of bariatric/gastric band. Recommend patient continue on current REGULAR diet with THIN liquids, pills whole with liquid. Patient was encouraged to elect softer foods from regular menu to accommodated dentures. No further speech service indicated at this time, ASSEMBLY LINE DRIVER will d/c order. REGAN ESTRADA notified by secure text, RN in person. Frequency/Duration: Date Range for Service Req: Timeline to reassess: Iv Rn Clinican/Clinical Fellow: No Supervisory Statement: I have reviewed and agree with the student/clinical fellow's documentation: N/A Speech Language Pathologist: Katelin Gonzalez M.A., [facility]-ASSEMBLY LINE DRIVER
--- NOTE | 2024-10-20 16:38 | P.PNIM_ITS ---
Subjective Subjective Date of Service: 10/20/24 Interval History: chf execerebation Review of Systems sob seems improving denies any chest pain Review of Systems: Yes all other systems are reviewed and are negative Physical Exam 2 Exam: Exam: cvs:Regular rate and rhythm, S1-S2 heard chest:air entry diminshed ,mild Bilateral crackles. Abdomen soft nontender, no guarding, no rigidity Patient is awake, alert and oriented x3 ; no focal motor deficit Psych: Normal mood Mild pedal edema Vital Signs: Vital Signs: Last Vital Signs Temp 98.3 F 10/20/24 15:35 Pulse 82 10/20/24 15:50 Resp 22 H 10/20/24 15:50 BP 140/50 H 10/20/24 15:35 Pulse Ox 98 10/20/24 15:35 O2 Del Method Nasal Cannula 10/20/24 15:35 O2 Flow Rate 3 10/20/24 15:35 Oxygen Flow Rate 2 10/19/24 16:14 BMI result Body Mass Index 36.1 Objective Data Active Medications Acetaminophen (Acetaminophen 325 Mg Tablet) 650 mg PO Q6H PRN PRN Reason: Pain, Mild 1-3,fever,headache Last Admin: 10/20/24 15:29 Dose: 650 mg Documented By: BARB Albuterol/Ipratropium (Albuterol/Iprat 2.5/0.5mg 3 Ml Ampul.Neb) 3 ml INHALE Q4H PRN PRN Reason: Shortness of Breath/Wheezing Albuterol/Ipratropium (Albuterol/Iprat 2.5/0.5mg 3 Ml Ampul.Neb) 3 ml INHALE RQ4H WHILE AWAKE [facility] Last Admin: 10/20/24 15:49 Dose: 3 ml Documented By: LAVON Allopurinol (Allopurinol 100 Mg Tablet) 100 mg PO DAILY [facility] Last Admin: 10/20/24 08:46 Dose: 100 mg Documented By: LOTUS Apixaban (Apixaban 5 Mg Tablet) 5 mg PO BID [facility] Last Admin: 10/20/24 08:47 Dose: 5 mg Documented By: LOTUS Atorvastatin Calcium (Atorvastatin Calcium 80 Mg Tablet) 80 mg PO BEDTIME [facility] Benzonatate (Benzonatate 100 Mg Capsule) 100 mg PO TID PRN PRN Reason: Cough Bupropion HCl (Bupropion Hcl Xl 150 Mg Tab.Er.24h) 150 mg PO DAILY@1700 ERICH Bupropion HCl (Bupropion Hcl Xl 300 Mg Tab.Er.24h) 300 mg PO DAILY [facility] Last Admin: 10/20/24 08:47 Dose: 300 mg Documented By: LOTUS Buspirone HCl (Buspirone Hcl 5 Mg Tablet) 7.5 mg PO BID [facility] Last Admin: 10/20/24 08:46 Dose: 7.5 mg Documented By: LOTUS Calcium Carbonate (Calcium Carbonate 750 Mg Tab.Chew) 750 mg PO Q4H PRN PRN Reason: Heartburn Diltiazem HCl (Diltiazem Hcl Cd 180 Mg Cap.Er.24h) 180 mg PO DAILY [facility]; Protocol Last Admin: 10/20/24 08:46 Dose: 180 mg Documented By: LOTUS Docusate Sodium (Docusate Sodium 100 Mg/10 Ml Liquid) 50 mg PO DAILY PRN PRN Reason: Constipation Duloxetine HCl (Duloxetine Hcl 60 Mg Capsule.) 60 mg PO DAILY [facility] Last Admin: 10/20/24 08:46 Dose: 60 mg Documented By: LOTUS Furosemide (Furosemide 40 Mg/4 Ml Vial) 40 mg IVPUSH DAILY [facility]; Protocol Last Admin: 10/20/24 08:47 Dose: 40 mg Documented By: LOTUS Lisinopril (Lisinopril 40 Mg Tablet) 40 mg PO DAILY [facility]; Protocol Last Admin: 10/20/24 08:46 Dose: 40 mg Documented By: LOTUS Magnesium Hydroxide (Milk Of Magnesia 30 Ml Oral.Susp) 30 ml PO DAILY PRN PRN Reason: Constipation Melatonin (Melatonin 3 Mg Tablet) 6 mg PO BEDTIME PRN PRN Reason: Insomnia Multivitamins/Vitamin C (Multivitamin Tablet) 1 tab PO DAILY [facility] Last Admin: 10/20/24 08:47 Dose: 1 tab Documented By: LOTUS Non-Formulary Medication (Mjskblalqs-Lweaosuj-Amrdjaczir [Breztri Aerosphere]) 2 inhalation INHALE BID [facility] Omeprazole (Omeprazole 20 Mg Capsule.) 20 mg PO DAILY@0630 [facility] Last Admin: 10/20/24 07:07 Dose: 20 mg Documented By: LOTUS Ondansetron HCl (Ondansetron Hcl 4 Mg/2 Ml Vial) 4 mg IVPUSH Q8H PRN PRN Reason: Nausea and Vomiting Potassium Chloride (Potassium Chloride Er 10 Meq Tablet.Er) 10 meq PO BID [facility] Last Admin: 10/20/24 08:47 Dose: 10 meq Documented By: LOTUS Sodium Chloride (0.9 % Sodium Chloride Flush 3 Ml Syringe) 3 ml IVFLUSH QSHIFT [facility] Last Admin: 10/20/24 08:51 Dose: 3 ml Documented By: LOTUS Vitamin D (Cholecalciferol (Vitamin D3) 25 Mcg Tablet) 50 mcg PO BEDTIME [facility] Labs 10/20/24 05:11 10/20/24 05:11 Labs: Laboratory Results - last 24 hr 10/19/24 10/19/24 10/19/24 17:00 17:01 18:05 MCV 90.6 MCH 29.6 MCHC 32.6 RDW 17.1 H Plt Count 255 D MPV 11.1 Immature Gran % (Auto) 0.4 Neut % (Auto) 74.9 H Lymph % (Auto) 11.4 L [place] % (Auto) 12.5 H Eos % (Auto) 0.5 Baso % (Auto) 0.3 Lymph # (Auto) 1.7 [place] # (Auto) 1.9 H Eos # (Auto) 0.1 Baso # (Auto) 0.0 Abs Immat Gran (auto) 0.06 H Absolute Neuts (auto) 11.5 H Absolute Nucleated RBC 0.000 Nucleated RBC % (auto) 0.0 Smear Tech's Comments VERIFIED Anion Gap 15 Estim Creat Clear Calc 61.3 Estimated GFR > 60 POC Glucose Random Glucose 100 Lactic Acid Calcium 9.9 B-Natriuretic Peptide 706 H Urine Color Urine Appearance Urine pH Ur Specific [place] Urine Protein Urine Glucose (UA) Urine Ketones Urine Blood Urine Nitrite Ur Leukocyte Esterase Urine RBC Urine WBC Ur Squamous Epith Cells Urine Bacteria Hyaline Casts Influenza Type A (PCR) NEGATIVE Influenza Type B (PCR) NEGATIVE RSV RNA Qual (PCR) NEGATIVE SARS-CoV-2 RNA (RT-PCR) NEGATIVE 10/19/24 10/19/24 10/20/24 19:03 19:26 05:11 MCV 89.8 MCH 28.8 MCHC 32.1 RDW 16.9 H Plt Count 264 MPV 10.6 Immature Gran % (Auto) 0.4 Neut % (Auto) 88.3 H Lymph % (Auto) 7.9 L [place] % (Auto) 3.3 Eos % (Auto) 0.0 Baso % (Auto) 0.1 Lymph # (Auto) 0.8 L [place] # (Auto) 0.3 Eos # (Auto) 0.0 Baso # (Auto) 0.0 Abs Immat Gran (auto) 0.04 H Absolute Neuts (auto) 8.8 H Absolute Nucleated RBC 0.000 Nucleated RBC % (auto) 0.0 Smear Tech's Comments Anion Gap 15 Estim Creat Clear Calc 50.7 Estimated GFR > 60 POC Glucose Random Glucose 182 H Lactic Acid 1.9 Calcium 10.3 H B-Natriuretic Peptide Urine Color Yellow Urine Appearance Clear Urine pH 5.5 Ur Specific [place] 1.010 Urine Protein 30 (1+) H Urine Glucose (UA) Negative Urine Ketones Negative Urine Blood Trace H Urine Nitrite Negative Ur Leukocyte Esterase Trace H Urine RBC 0-2 Urine WBC 0-5 Ur Squamous Epith Cells 3-5 Urine Bacteria None Seen Hyaline Casts 0-2 Influenza Type A (PCR) Influenza Type B (PCR) RSV RNA Qual (PCR) SARS-CoV-2 RNA (RT-PCR) 10/20/24 07:04 MCV MCH MCHC RDW Plt Count MPV Immature Gran % (Auto) Neut % (Auto) Lymph % (Auto) [place] % (Auto) Eos % (Auto) Baso % (Auto) Lymph # (Auto) [place] # (Auto) Eos # (Auto) Baso # (Auto) Abs Immat Gran (auto) Absolute Neuts (auto) Absolute Nucleated RBC Nucleated RBC % (auto) Smear Tech's Comments Anion Gap Estim Creat Clear Calc Estimated GFR POC Glucose 148 H Random Glucose Lactic Acid Calcium B-Natriuretic Peptide Urine Color Urine Appearance Urine pH Ur Specific [place] Urine Protein Urine Glucose (UA) Urine Ketones Urine Blood Urine Nitrite Ur Leukocyte Esterase Urine RBC Urine WBC Ur Squamous Epith Cells Urine Bacteria Hyaline Casts Influenza Type A (PCR) Influenza Type B (PCR) RSV RNA Qual (PCR) SARS-CoV-2 RNA (RT-PCR) Assessment and Plan (1) Acute exacerbation of CHF (congestive heart failure): Status: Acute Plan 84-year-old female with pertinent history of chronic hypoxemic respiratory failure due to COPD on baseline 3 L supplemental oxygen, mood disorder, history of PE and paroxysmal atrial flutter on Eliquis, gout, congestive heart failure with preserved ejection fraction who presents to the emergency department for evaluation of dyspnea. Acute on chronic congestive heart failure with preserved ejection fraction: sob seems somwhat improving po intake need to monitered properly( i/o),daily weights plan; IV diuresis. Strict I's and O's. transthoracic echocardiogram. Scheduled and p.r.n. DuoNebs for cardiac wheezing. Chronic hypoxemic respiratory failure due to COPD: DuoNebs as above. Continue home inhaler. Defer steroids as can cause worsening of CHF. Leukocytosis, reactive and resolved. Dilatation of esophagus on imaging. Patient without any symptoms currently. Continue to monitor denies any acute symptoms ,cleared by speech Mood disorder: Continue home mood stabilizers. generalised weak-added pt eval. Proximal atrial flutter: On Eliquis ongoing need:Acute on chronic congestive heart failure with preserved ejection fraction-iv lasix ,i/o monitering ,cardiac workup ,renal function/electrolytic monitering Quality Stroke Does the patient have a stroke diagnosis?: No VTE Prior VTE?: No VTE Risk Level:: Medical - moderate - high VTE Device Contraindication: Treatment Not Indicated VTE Drug Contraindication: N/A - Med Ordered
[2024-10-20] MEDS: buPROPion HCl XL 150 MG TAB.ER.24H PO (16:39)
[2024-10-20 17:52] LABS: Glucose, Whole Blood 124 mg/dL (60-115)
[2024-10-20 18:10] LABS: Hemoglobin A1C 120.7096 umol/L; Total Hemoglobin (HGBA1C) 3194.6473 umol/L
[2024-10-21] VITALS (8 sets, daily range): BP systolic 129–148; BP diastolic 62–67; PULSE 63–78; RESP 16–20; TEMP 36.2–36.6; O2SAT 97–99
[2024-10-21] MEDS: Albuterol/Iprat 2.5/0.5MG 3 ML AMPUL.NEB INHALE ×4 (07:58→20:00)
[2024-10-21] MEDS: Furosemide 40 MG/4 ML VIAL IVPUSH (08:09)
[2024-10-21] MEDS: buPROPion HCl XL 300 MG TAB.ER.24H PO (08:09)
[2024-10-21] MEDS: dilTIAZem HCL CD 180 MG CAP.ER.24H PO (08:09)
[2024-10-21] MEDS: Potassium Chloride ER 10 MEQ TABLET.ER PO ×2 (08:09→20:32)
[2024-10-21] MEDS: 0.9 % Sodium Chloride Flush 3 ML SYRINGE IVFLUSH ×3 (08:12→20:33)
[2024-10-21 08:17] LABS: Glucose, Whole Blood 89 mg/dL (60-115)
--- NOTE | 2024-10-21 08:51 | MHC.CM.PN ---
PT REPORTS SHE LIVES WITH HER AND IS INDEPENDENT WITH SELF CARE SHE USES A WALKER WHEN OUT OF THE HOME AND HAS [employer] FOR O2 (3L @ BL) AND CPAP SHE IS ACTIVE WITH [facility] FOR A DEVULCANIZER TENDER AND MOW PCP: JOLEEN PRATT COPY OF HCP REQUESTED, SHE REPORTS THE AGENTS ARE HER AND TWO SONS, HOLLY AND JOLEEN IMM DELIVERED DCP: [facility] FAMILY TO TRANSPORT
[2024-10-21 09:11] LABS: Anion Gap 11 (12-20); Blood Urea Nitrogen 15 mg/dL (9-16); Calcium 9.7 mg/dL (8.4-10.2); Carbon Dioxide 33 mmol/L (22-29); Chloride 104 mmol/L (96-108); Creatinine Clr Calc Pharmacy 44.0; Estimated Glomerular Filt Rate 57; Potassium 3.6 mmol/L (3.3-5.1); Sodium 144 mmol/L (135-145)
[2024-10-21 09:15] LABS: B Type Natriuretic Peptide 216 pg/mL (<100)
[2024-10-21 11:35] LABS: Glucose, Whole Blood 109 mg/dL (60-115)
--- NOTE | 2024-10-21 13:58 | PM.CNCAR ---
History of Present Illness History of Present Illness Date of Service: 10/21/24 Requesting physician: Marian Cates Consult reason: congestive heart failure Chief complaint: Dyspnea Narrative: I was consulted to see Cindi in cardiology consultation today for worsening shortness of breath and heart failure. She was 84-year-old female with prior history of bioprosthetic mitral valve replacement 2012 for what appears to be severe mitral stenosis and heart failure syndrome, undergoing a 29 mm bioprosthetic [place] valve. At that time she had nonobstructive coronary artery disease. She also has history of oxygen requiring COPD, consistent with chronic respiratory failure, obesity, atrial flutter persistent on chronic anticoagulation, hypertension, hyperlipidemia. She came to the hospital with worsening shortness of breath over the last few months. She says she has been having progressively more and more short of breath walking short distance and having shortness of breath laying down. She denies any palpitations. When she came to the hospital she was noted to be in congestive heart failure with radiographic findings elevated BNP. He has been admitted for diuresis. She has been diuresed although intake and output chart seems to be inaccurate. She feels better but continues to have exertional shortness of breath walking to the bathroom. No palpitations, lightheadedness, chest pain. Patient was accompanied by her son and in the room. She was not had any recent bleeding issues or neurologic events. Echo done yesterday showed significant stenosis of the bioprosthetic aortic valve with mean gradient which has significantly increased with elevated right ventricular systolic pressure is significantly elevated right atrial pressures. Review of Systems Constitutional: Constitutional: Reports no additional constitutional complaints Eyes: Eyes: Reports no additional eye complaints Cardiovascular: Cardiovascular: Denies chest pain, Reports leg edema, Denies lightheadedness, Denies Loss of Consciousness, Denies palpitations, Reports dyspnea on exertion and Reports orthopnea Respiratory: Respiratory: Reports cough, Reports dyspnea on exertion and Denies wheezing Gastrointestinal: Gastrointestinal: Reports no additional gastrointestinal complaints Genitourinary: Genitourinary: Reports no additional female genitourinary complaints Integumentary/Breasts: Skin/Breast: Reports system reviewed and no additional complaints, except as docu Neurologic: Reports system reviewed and no additional complaints, except as documented Psychiatric: Psychiatric: Reports no additional psychiatric complaints Endocrine: Endocrine: Denies palpitations Allergic/Immunologic: Allergic/Immunologic: Denies wheezing PMFSH Past Medical History Medical History Non-pressure chronic ulcer of skin of other sites with fat layer exposed COPD (chronic obstructive pulmonary disease) Pulmonary nodules Myocarditis Pneumonia Acute respiratory failure Gout Depression Obesity CHF (congestive heart failure) SABRINA on CPAP Diabetes mellitus Pulmonary embolism COVID-19 HTN (hypertension) Heart valve problem COPD (chronic obstructive pulmonary disease) Family History Family History Sister Lung cancer Mother Renal cancer Other Diabetes mellitus Surgical History Surgical History Previous back surgery History of aortic valve replacement with bioprosthetic valve Hx of laparoscopic gastric banding History of total right hip arthroplasty Social History Social History Household Members: Spouse and Children Household Members Other:: lives with her and her son Housing: House Do you presently have visiting nurse or other home services: No Unable to assess alcohol history related to: Unable to respond Alcohol intake: never Patient Tobacco Use Status: Never used Tobacco service: No Current occupational status: retired [employer] Allergies Allergy/AdvReac Type Severity Reaction Status Date / Time fentanyl Allergy Difficulty Verified 10/19/24 16:31 Breathing Active Medications: Current Medications Acetaminophen (Acetaminophen 325 Mg Tablet) 650 mg PO Q6H PRN PRN Reason: Pain, Mild 1-3,fever,headache Last Admin: 10/20/24 15:29 Dose: 650 mg Albuterol/Ipratropium (Albuterol/Iprat 2.5/0.5mg 3 Ml Ampul.Neb) 3 ml INHALE Q4H PRN PRN Reason: Shortness of Breath/Wheezing Albuterol/Ipratropium (Albuterol/Iprat 2.5/0.5mg 3 Ml Ampul.Neb) 3 ml INHALE RQ4H WHILE AWAKE [facility] Last Admin: 10/21/24 11:30 Dose: 3 ml Allopurinol (Allopurinol 100 Mg Tablet) 100 mg PO DAILY [facility] Last Admin: 10/21/24 08:09 Dose: 100 mg Apixaban (Apixaban 5 Mg Tablet) 5 mg PO BID [facility] Last Admin: 10/21/24 08:09 Dose: 5 mg Atorvastatin Calcium (Atorvastatin Calcium 80 Mg Tablet) 80 mg PO BEDTIME [facility] Last Admin: 10/20/24 20:00 Dose: 80 mg Benzonatate (Benzonatate 100 Mg Capsule) 100 mg PO TID PRN PRN Reason: Cough Bupropion HCl (Bupropion Hcl Xl 150 Mg Tab.Er.24h) 150 mg PO DAILY@1700 [facility] Last Admin: 10/20/24 16:39 Dose: 150 mg Bupropion HCl (Bupropion Hcl Xl 300 Mg Tab.Er.24h) 300 mg PO DAILY [facility] Last Admin: 10/21/24 08:09 Dose: 300 mg Buspirone HCl (Buspirone Hcl 5 Mg Tablet) 7.5 mg PO BID [facility] Last Admin: 10/21/24 08:10 Dose: 7.5 mg Calcium Carbonate (Calcium Carbonate 750 Mg Tab.Chew) 750 mg PO Q4H PRN PRN Reason: Heartburn Diltiazem HCl (Diltiazem Hcl Cd 180 Mg Cap.Er.24h) 180 mg PO DAILY [facility]; Protocol Last Admin: 10/21/24 08:09 Dose: 180 mg Docusate Sodium (Docusate Sodium 100 Mg/10 Ml Liquid) 50 mg PO DAILY PRN PRN Reason: Constipation Last Admin: 10/21/24 11:31 Dose: 50 mg Duloxetine HCl (Duloxetine Hcl 60 Mg Capsule.Dr) 60 mg PO DAILY [facility] Last Admin: 10/21/24 08:09 Dose: 60 mg Furosemide (Furosemide 40 Mg/4 Ml Vial) 40 mg IVPUSH DAILY [facility]; Protocol Last Admin: 10/21/24 08:09 Dose: 40 mg Lisinopril (Lisinopril 40 Mg Tablet) 40 mg PO DAILY [facility]; Protocol Last Admin: 10/21/24 08:09 Dose: 40 mg Magnesium Hydroxide (Milk Of Magnesia 30 Ml Oral.Susp) 30 ml PO DAILY PRN PRN Reason: Constipation Melatonin (Melatonin 3 Mg Tablet) 6 mg PO BEDTIME PRN PRN Reason: Insomnia Multivitamins/Vitamin C (Multivitamin Tablet) 1 tab PO DAILY [facility] Last Admin: 10/21/24 08:09 Dose: 1 tab Non-Formulary Medication (Cgrvnyqzcu-Jvysrxeo-Uyguikifrb [Breztri Aerosphere]) 2 inhalation INHALE BID [facility] Omeprazole (Omeprazole 20 Mg Capsule.Dr) 20 mg PO DAILY@0630 [facility] Last Admin: 10/21/24 06:42 Dose: 20 mg Ondansetron HCl (Ondansetron Hcl 4 Mg/2 Ml Vial) 4 mg IVPUSH Q8H PRN PRN Reason: Nausea and Vomiting Potassium Chloride (Potassium Chloride Er 10 Meq Tablet.Er) 10 meq PO BID [facility] Last Admin: 10/21/24 08:09 Dose: 10 meq Sodium Chloride (0.9 % Sodium Chloride Flush 3 Ml Syringe) 3 ml IVFLUSH QSHIFT [facility] Last Admin: 10/21/24 08:12 Dose: 3 ml Vitamin D (Cholecalciferol (Vitamin D3) 25 Mcg Tablet) 50 mcg PO BEDTIME [facility] Last Admin: 10/20/24 20:00 Dose: 50 mcg Home Medications ?Medication ?Instructions ?Recorded ?Confirmed ?Last Taken ?Type allopurinol 100 mg tablet 100 mg PO DAILY 01/30/20 10/19/24 10/19/24 History bupropion HCl 150 mg 24 hr tablet, 150 mg PO DAILY@1700 01/30/20 10/19/24 10/18/24 History extended release bupropion HCl 300 mg 24 hr tablet, 300 mg PO DAILY 01/30/20 10/19/24 10/18/24 History extended release duloxetine 60 mg capsule,delayed 60 mg PO DAILY 01/30/20 10/19/24 10/18/24 History release omeprazole 20 mg capsule,delayed 20 mg PO DAILY@0630 01/30/20 10/19/24 10/18/24 History release potassium chloride 10 mEq 10 meq PO BID 01/30/20 10/19/24 10/18/24 History capsule,extended release rosuvastatin 20 mg tablet 20 mg PO BEDTIME 01/30/20 10/19/24 10/18/24 History apixaban 5 mg tablet 5 mg PO BID 08/17/20 10/19/24 10/19/24 History diltiazem HCl 180 mg 180 mg PO DAILY 08/17/20 10/19/24 10/19/24 History capsule,extended release 24 hr, controlled (DILT-XR) albuterol sulfate 90 mcg/actuation 2 puff inhalation Q6H PRN 06/13/21 10/19/24 Unknown History aerosol inhaler Shortness Of Breath cholecalciferol (vitamin D3) 50 50 mcg PO BEDTIME 04/14/22 08/20/25 08/19/25 History mcg (2,000 unit) tablet docusate sodium 50 mg capsule 50 mg PO DAILY PRN Constipation 06/13/21 10/19/24 Unknown History ferrous sulfate 325 mg (65 mg 325 mg PO Q48H 06/13/21 10/19/24 10/17/24 History iron) tablet furosemide 40 mg tablet 40 mg PO DAILY 06/13/21 10/19/24 10/18/24 History budesonide 160 mcg-glycopyr 9 2 inh inhalation BID 10/19/24 10/19/24 10/19/24 History mcg-formot 4.8 mcg/actuation HFA inhaler (Breztri Aerosphere) buspirone 7.5 mg tablet 7.5 mg PO BID 10/19/24 10/19/24 10/19/24 History colchicine 0.6 mg tablet 0.6 mg PO DAILY PRN Gout 10/19/24 10/19/24 Unknown History lisinopril 40 mg tablet 40 mg PO DAILY 10/19/24 10/19/24 10/19/24 History mhmgvylt-jxcr-kgki 8 mg-folic 400 1 tab PO DAILY 10/19/24 10/19/24 10/18/24 History mcg-K 50 mcg-lutein 300 mcg tablet (Multivitamin Women 50 Plus) Physical Exam Vital Signs: Vital Signs: Last Vital Signs Temp 97.8 F 10/21/24 08:00 Pulse 73 10/21/24 12:35 Resp 16 10/21/24 11:33 BP 129/62 10/21/24 08:00 Pulse Ox 98 10/21/24 08:00 O2 Del Method Nasal Cannula 10/21/24 08:00 O2 Flow Rate 3 10/21/24 08:00 Oxygen Flow Rate 2 10/19/24 16:14 BMI result Body Mass Index 35.7 Const: General: cooperative, comfortable, alert and awake Nutritional Appearance: obese Orientation/consciousness: patient oriented x3 HEENT: Head: Yes normocephalic and Yes atraumatic Neck: Neck: Yes trachea midline, Yes supple and Yes JVD Resp: Effort & Inspection: normal respiratory effort Auscultation: no wheezes and diminished lung sounds Cardio: Jugular venous distension: JVD Rate: regular rate Heart sounds: S1 normal heart sound present, S2 normal heart sound present, no click, no gallops and Murmur heart sound present diastolic GI: Auscultation: normal bowel sounds Skin: General skin exam: no rashes or lesions noted Neuro: General: patient oriented x3 and no focal motor deficits Extrem: General: No clubbing, No cyanosis and Yes edema Psych: Appearance: grossly normal Objective Labs and Meds 10/20/24 05:11 10/21/24 08:00 Lab results: Laboratory Results - last 24 hr 10/20/24 10/20/24 10/21/24 05:11 17:46 08:00 Sodium 144 Potassium 3.6 Chloride 104 Carbon Dioxide 33 H Anion Gap 11 L BUN 15 Creatinine 0.94 Estim Creat Clear Calc 44.0 Estimated GFR 57 POC Glucose 124 H Random Glucose 87 Estimat Average Glucose 114 Hemoglobin A1c % 5.6 Calcium 9.7 B-Natriuretic Peptide 216 H 10/21/24 10/21/24 08:01 11:31 Sodium Potassium Chloride Carbon Dioxide Anion Gap BUN Creatinine Estim Creat Clear Calc Estimated GFR POC Glucose 89 109 Random Glucose Estimat Average Glucose Hemoglobin A1c % Calcium B-Natriuretic Peptide Assessment and Plan (1) Acute exacerbation of CHF (congestive heart failure): Status: Acute Patient comes with acute heart failure with symptoms. Clinically doing better with diuresis. Continue IV diuresis. Strict intake and output chart needs to be pursued. Heart failure appears to be secondary to stenosis of her bioprosthetic aortic valve with fusion need to be evaluated eventually. For now continue aggressive diuretic therapy. Continue monitor renal function as well as electrolytes and and replace as needed. Continue oxygen therapy. Continue management of COPD. Will continue to follow with you (2) S/P mitral valve replacement with bioprosthetic valve: Status: Acute Patient with bioprosthetic mitral valve in place which appears to be stenotic with significantly increased gradient. This will need further evaluation as outpatient by his own primary veneer lathe operator Dr. Dobbs. Will most likely need a MARIA ANTONIA and if confirms will need cardiac catheterization consideration for replacement although would be not a candidate for open valve replacement but possibly transcatheter mitral valve replacement. Will need to be followed as outpatient. Continue SBE prophylaxis as per [facility] guidelines. Continue currently on full oral anticoagulation. (3) Atrial flutter: Qualifiers: Atrial flutter type: unspecified Qualified Code(s): I48.92 - Unspecified atrial flutter Status: Resolved Persistent rate control atrial flutter, has failed rhythm control as per her in the past. In his rate control approach. Continue full oral anticoagulation, currently on Eliquis 5 mg b.i.d.. Will continue to follow with you. Gradient 40 minutes was spent in managing and reviewing her chart and formulating a plan Procedures Date of Service Date of Service: 10/21/24
--- NOTE | 2024-10-21 15:35 | P.PNIM_ITS ---
Subjective Subjective Date of Service: 10/21/24 Interval History: chf execerebation Review of Systems sob seems improving denies any chest pain Review of Systems: Yes all other systems are reviewed and are negative Physical Exam 2 Exam: Exam: cvs:Regular rate and rhythm, S1-S2 heard chest:air entry diminshed ,mild Bilateral crackles. Abdomen soft nontender, no guarding, no rigidity Patient is awake, alert and oriented x3 ; no focal motor deficit Psych: Normal mood Mild pedal edema Vital Signs: Vital Signs: Last Vital Signs Temp 97.5 F 10/21/24 15:21 Pulse 71 10/21/24 15:21 Resp 18 10/21/24 15:21 BP 148/67 H 10/21/24 15:21 Pulse Ox 98 10/21/24 15:21 O2 Del Method Nasal Cannula 10/21/24 15:21 O2 Flow Rate 2 10/21/24 15:21 Oxygen Flow Rate 2 10/19/24 16:14 BMI result Body Mass Index 35.7 Objective Data Active Medications Acetaminophen (Acetaminophen 325 Mg Tablet) 650 mg PO Q6H PRN PRN Reason: Pain, Mild 1-3,fever,headache Last Admin: 10/21/24 13:59 Dose: 650 mg Documented By: SON Albuterol/Ipratropium (Albuterol/Iprat 2.5/0.5mg 3 Ml Ampul.Neb) 3 ml INHALE Q4H PRN PRN Reason: Shortness of Breath/Wheezing Albuterol/Ipratropium (Albuterol/Iprat 2.5/0.5mg 3 Ml Ampul.Neb) 3 ml INHALE RQ4H WHILE AWAKE [facility] Last Admin: 10/21/24 15:33 Dose: 3 ml Documented By: TIFFANIE Allopurinol (Allopurinol 100 Mg Tablet) 100 mg PO DAILY [facility] Last Admin: 10/21/24 08:09 Dose: 100 mg Documented By: SON Apixaban (Apixaban 5 Mg Tablet) 5 mg PO BID [facility] Last Admin: 10/21/24 08:09 Dose: 5 mg Documented By: SON Atorvastatin Calcium (Atorvastatin Calcium 80 Mg Tablet) 80 mg PO BEDTIME [facility] Last Admin: 10/20/24 20:00 Dose: 80 mg Documented By: JORY Benzonatate (Benzonatate 100 Mg Capsule) 100 mg PO TID PRN PRN Reason: Cough Bupropion HCl (Bupropion Hcl Xl 150 Mg Tab.Er.24h) 150 mg PO DAILY@1700 [facility] Last Admin: 10/20/24 16:39 Dose: 150 mg Documented By: LOTUS Bupropion HCl (Bupropion Hcl Xl 300 Mg Tab.Er.24h) 300 mg PO DAILY [facility] Last Admin: 10/21/24 08:09 Dose: 300 mg Documented By: SON Buspirone HCl (Buspirone Hcl 5 Mg Tablet) 7.5 mg PO BID [facility] Last Admin: 10/21/24 08:10 Dose: 7.5 mg Documented By: SON Calcium Carbonate (Calcium Carbonate 750 Mg Tab.Chew) 750 mg PO Q4H PRN PRN Reason: Heartburn Diltiazem HCl (Diltiazem Hcl Cd 180 Mg Cap.Er.24h) 180 mg PO DAILY [facility]; Protocol Last Admin: 10/21/24 08:09 Dose: 180 mg Documented By: SON Docusate Sodium (Docusate Sodium 100 Mg/10 Ml Liquid) 50 mg PO DAILY PRN PRN Reason: Constipation Last Admin: 10/21/24 11:31 Dose: 50 mg Documented By: SON Duloxetine HCl (Duloxetine Hcl 60 Mg Capsule.Dr) 60 mg PO DAILY [facility] Last Admin: 10/21/24 08:09 Dose: 60 mg Documented By: SON Furosemide (Furosemide 40 Mg/4 Ml Vial) 40 mg IVPUSH DAILY [facility]; Protocol Last Admin: 10/21/24 08:09 Dose: 40 mg Documented By: SON Lisinopril (Lisinopril 40 Mg Tablet) 40 mg PO DAILY [facility]; Protocol Last Admin: 10/21/24 08:09 Dose: 40 mg Documented By: SON Magnesium Hydroxide (Milk Of Magnesia 30 Ml Oral.Susp) 30 ml PO DAILY PRN PRN Reason: Constipation Melatonin (Melatonin 3 Mg Tablet) 6 mg PO BEDTIME PRN PRN Reason: Insomnia Multivitamins/Vitamin C (Multivitamin Tablet) 1 tab PO DAILY [facility] Last Admin: 10/21/24 08:09 Dose: 1 tab Documented By: SON Non-Formulary Medication (Letjlxwbec-Vkllqjnc-Okcqrrqmek [Breztri Aerosphere]) 2 inhalation INHALE BID [facility] Omeprazole (Omeprazole 20 Mg Capsule.Dr) 20 mg PO DAILY@0630 [facility] Last Admin: 10/21/24 06:42 Dose: 20 mg Documented By: JORY Ondansetron HCl (Ondansetron Hcl 4 Mg/2 Ml Vial) 4 mg IVPUSH Q8H PRN PRN Reason: Nausea and Vomiting Potassium Chloride (Potassium Chloride Er 10 Meq Tablet.Er) 10 meq PO BID [facility] Last Admin: 10/21/24 08:09 Dose: 10 meq Documented By: SON Sodium Chloride (0.9 % Sodium Chloride Flush 3 Ml Syringe) 3 ml IVFLUSH QSHIFT [facility] Last Admin: 10/21/24 15:28 Dose: 3 ml Documented By: SON Vitamin D (Cholecalciferol (Vitamin D3) 25 Mcg Tablet) 50 mcg PO BEDTIME [facility] Last Admin: 10/20/24 20:00 Dose: 50 mcg Documented By: JORY Labs 10/20/24 05:11 10/21/24 08:00 Labs: Laboratory Results - last 24 hr 10/20/24 10/20/24 10/21/24 05:11 17:46 08:00 Anion Gap 11 L Estim Creat Clear Calc 44.0 Estimated GFR 57 POC Glucose 124 H Random Glucose 87 Estimat Average Glucose 114 Hemoglobin A1c % 5.6 Calcium 9.7 B-Natriuretic Peptide 216 H 10/21/24 10/21/24 08:01 11:31 Anion Gap Estim Creat Clear Calc Estimated GFR POC Glucose 89 109 Random Glucose Estimat Average Glucose Hemoglobin A1c % Calcium B-Natriuretic Peptide Microbiology Microbiology Results: Microbiology 10/19/24 19:03 Blood Culture - Preliminary Blood - Venous No growth after 24 hours. 10/19/24 19:03 Blood Culture - Preliminary Blood - Venous No growth after 24 hours. Assessment and Plan (1) Acute exacerbation of CHF (congestive heart failure): Status: Acute Plan 84-year-old female with pertinent history of chronic hypoxemic respiratory failure due to COPD on baseline 3 L supplemental oxygen, mood disorder, history of PE and paroxysmal atrial flutter on Eliquis, gout, congestive heart failure with preserved ejection fraction who presents to the emergency department for evaluation of dyspnea. Acute on chronic congestive heart failure with preserved ejection fraction: sob seems somwhat improving po intake need to monitered properly( i/o),daily weights transthoracic echocardiogram:1. Normal LV ejection fraction 65-70% 2. Biatrial enlargement, right greater than left. 3. Mild aortic stenosis 4. Significantly increased gradient across bioprosthetic mitral valve suggestive of significant stenosis 5. Moderate to severe elevation of right ventricular systolic pressure . 6. No pericardial effusion plan; IV diuresis. Strict I's and O's. Scheduled and p.r.n. DuoNebs for cardiac wheezing. seen by cardiology-continue iv lasix , moniter i/o Chronic hypoxemic respiratory failure due to COPD: DuoNebs as above. Continue home inhaler. Defer steroids as can cause worsening of CHF. Leukocytosis, reactive and resolved. Dilatation of esophagus on imaging. Patient without any symptoms currently. Continue to monitor denies any acute symptoms ,cleared by speech Mood disorder: Continue home mood stabilizers. generalised weak-added pt eval. Proximal atrial flutter: On Eliquis ongoing need:Acute on chronic congestive heart failure with preserved ejection fraction-iv lasix ,i/o monitering ,cardiac workup ,renal function/electrolytic monitering Quality Stroke Does the patient have a stroke diagnosis?: No VTE Prior VTE?: No VTE Risk Level:: Medical - moderate - high VTE Device Contraindication: Treatment Not Indicated VTE Drug Contraindication: N/A - Med Ordered
[2024-10-21 15:58] LABS: Glucose, Whole Blood 102 mg/dL (60-115)
[2024-10-21] MEDS: buPROPion HCl XL 150 MG TAB.ER.24H PO (17:31)
[2024-10-21 19:55] LABS: Glucose, Whole Blood 113 mg/dL (60-115)
[2024-10-22] VITALS (8 sets, daily range): BP systolic 140–154; BP diastolic 62–72; PULSE 64–78; RESP 15–20; TEMP 36.2–36.4; O2SAT 92–98
[2024-10-22] MEDS: Albuterol/Iprat 2.5/0.5MG 3 ML AMPUL.NEB INHALE ×4 (07:35→19:58)
[2024-10-22 07:39] LABS: Glucose, Whole Blood 97 mg/dL (60-115)
[2024-10-22] MEDS: dilTIAZem HCL CD 180 MG CAP.ER.24H PO (08:27)
[2024-10-22] MEDS: buPROPion HCl XL 300 MG TAB.ER.24H PO (08:27)
[2024-10-22] MEDS: Potassium Chloride ER 10 MEQ TABLET.ER PO ×2 (08:27→20:11)
[2024-10-22] MEDS: Furosemide 40 MG/4 ML VIAL IVPUSH (08:29)
[2024-10-22] MEDS: 0.9 % Sodium Chloride Flush 3 ML SYRINGE IVFLUSH ×3 (08:36→20:12)
--- NOTE | 2024-10-22 09:50 | PM.PNCARD ---
Subjective Subjective Date of Service: 10/22/24 Principal diagnosis: Congestive heart failure status post MVR with stenosis Interval history: Patient says she feels better but still short of breath walking to the bathroom which has minimal improvement. She does not have significant orthopnea although this is difficult to a certain. Leg edema is better. Intake and output charts are not chart it. Review of Systems Constitutional: Reports fatigue Cardiovascular: Denies chest pain, Denies lightheadedness, Denies Loss of Consciousness, Denies palpitations and Reports dyspnea on exertion Respiratory: Reports dyspnea on exertion and Reports wheezing Gastrointestinal: Reports no additional gastrointestinal complaints Musculoskeletal: Reports no additional musculoskeletal complaints Reports system reviewed and no additional complaints, except as documented Endocrine: Reports fatigue and Denies palpitations Allergic/Immunologic: Reports wheezing Physical Exam Vital Signs: Last Vital Signs Temp 97.6 F 10/22/24 07:51 Pulse 64 10/22/24 07:51 Resp 18 10/22/24 07:51 BP 152/72 H 10/22/24 07:51 Pulse Ox 97 10/22/24 07:51 O2 Del Method Nasal Cannula 10/22/24 07:51 O2 Flow Rate 2 10/22/24 07:51 Oxygen Flow Rate 2 10/19/24 16:14 BMI result Body Mass Index 35.7 Const General: cooperative, comfortable, alert and awake Nutritional Appearance: obese Orientation/consciousness: patient oriented x3 HEENT Head: Yes normocephalic and Yes atraumatic Neck Neck: Yes trachea midline, Yes supple and Yes JVD Resp Effort & Inspection: normal respiratory effort Auscultation: no wheezes and diminished lung sounds Cardio Jugular venous distension: JVD Rate: regular rate Heart sounds: S1 normal heart sound present, S2 normal heart sound present, no click, no gallops and Murmur heart sound present diastolic GI Auscultation: normal bowel sounds Skin General skin exam: no rashes or lesions noted Neuro General: patient oriented x3 and no focal motor deficits Extrem General: No clubbing, No cyanosis and Yes edema Psych Appearance: grossly normal Objective Labs and Meds 10/20/24 05:11 10/21/24 08:00 Lab results: Laboratory Results - last 24 hr 10/21/24 10/21/24 10/21/24 11:31 15:46 19:42 POC Glucose 109 102 113 10/22/24 07:35 POC Glucose 97 Progress Note: A&P Assessment and plan (1) Acute exacerbation of CHF (congestive heart failure): Status: Acute Assessment and Plan: Patient with continued shortness of breath but also appears to have some wheezing. Can you diuresis. Strict intake and output chart needs to be pursued as it was not done for now. Patient was some improvement in overall fluid overload. Continue to trend renal function as well as BNP. Replace electrolytes as needed. Better control blood pressure. Add spironolactone 12.5 mg to regimen. Check potassium tomorrow. (2) S/P mitral valve replacement with bioprosthetic valve: Status: Acute Assessment and Plan: Status post mitral valve with recent echo suggestive of significantly increased gradient across bioprosthetic valve suggest a stenosis. Will need further evaluation by her primary carton lettering machine operator as an outpatient including possibly a MARIA ANTONIA to evaluate her valve function appropriately as well as possibly a cardiac catheterization. Then decision will have to be made if she was significant stenosis to pursue transcatheter mitral valve replacement. Continue SBE prophylaxis. Continue full oral anticoagulation she had, currently on Eliquis (3) Atrial flutter: Status: Resolved Assessment and Plan: Persistent long-lasting atrial flutter. Continue rate control. Continue full oral anticoagulation with Eliquis. Will follow with you Time Spent With Patient Time: Total time managing care of this patient today ____ minutes. Progress Note: Quality Stroke Does the patient have a stroke diagnosis?: No Procedures Date of Service Date of Service: 10/22/24
[2024-10-22 09:52] LABS: Anion Gap 13 (12-20); Blood Urea Nitrogen 12 mg/dL (9-16); Calcium 10.1 mg/dL (8.4-10.2); Carbon Dioxide 32 mmol/L (22-29); Chloride 103 mmol/L (96-108); Creatinine Clr Calc Pharmacy 49.9; Estimated Glomerular Filt Rate > 60; Potassium 3.5 mmol/L (3.3-5.1); Sodium 144 mmol/L (135-145)
[2024-10-22 10:01] LABS: B Type Natriuretic Peptide 202 pg/mL (<100)
[2024-10-22 11:28] LABS: Glucose, Whole Blood 131 mg/dL (60-115)
--- NOTE | 2024-10-22 13:31 | P.PNIM_ITS ---
Subjective Subjective Date of Service: 10/22/24 Interval History: chf execerebation Review of Systems sob seems improving ,denies any chest pain Review of Systems: Yes all other systems are reviewed and are negative Physical Exam 2 Exam: Exam: cvs:Regular rate and rhythm, S1-S2 heard chest:air entry diminshed ,mild Bilateral crackles. Abdomen soft nontender, no guarding, no rigidity Patient is awake, alert and oriented x3 ; no focal motor deficit Psych: Normal mood Mild pedal edema Vital Signs: Vital Signs: Last Vital Signs Temp 97.6 F 10/22/24 07:51 Pulse 66 10/22/24 12:05 Resp 16 10/22/24 12:05 BP 152/72 H 10/22/24 07:51 Pulse Ox 97 10/22/24 07:51 O2 Del Method Nasal Cannula 10/22/24 07:51 O2 Flow Rate 2 10/22/24 07:51 Oxygen Flow Rate 2 10/19/24 16:14 BMI result Body Mass Index 35.7 Objective Data Active Medications Acetaminophen (Acetaminophen 325 Mg Tablet) 650 mg PO Q6H PRN PRN Reason: Pain, Mild 1-3,fever,headache Last Admin: 10/21/24 13:59 Dose: 650 mg Documented By: SON Albuterol/Ipratropium (Albuterol/Iprat 2.5/0.5mg 3 Ml Ampul.Neb) 3 ml INHALE Q4H PRN PRN Reason: Shortness of Breath/Wheezing Albuterol/Ipratropium (Albuterol/Iprat 2.5/0.5mg 3 Ml Ampul.Neb) 3 ml INHALE RQ4H WHILE AWAKE [facility] Last Admin: 10/22/24 12:02 Dose: 3 ml Documented By: URBANO Allopurinol (Allopurinol 100 Mg Tablet) 100 mg PO DAILY [facility] Last Admin: 10/22/24 08:27 Dose: 100 mg Documented By: PATRIA Apixaban (Apixaban 5 Mg Tablet) 5 mg PO BID [facility] Last Admin: 10/22/24 08:28 Dose: 5 mg Documented By: PATRIA Atorvastatin Calcium (Atorvastatin Calcium 80 Mg Tablet) 80 mg PO BEDTIME [facility] Last Admin: 10/21/24 20:30 Dose: 80 mg Documented By: HO.VILAA Benzonatate (Benzonatate 100 Mg Capsule) 100 mg PO TID PRN PRN Reason: Cough Bisacodyl (Bisacodyl 5 Mg Tablet.Dr) 10 mg PO BEDTIME PRN PRN Reason: Constipation Bupropion HCl (Bupropion Hcl Xl 150 Mg Tab.Er.24h) 150 mg PO DAILY@1700 [facility] Last Admin: 10/21/24 17:31 Dose: 150 mg Documented By: SON Bupropion HCl (Bupropion Hcl Xl 300 Mg Tab.Er.24h) 300 mg PO DAILY [facility] Last Admin: 10/22/24 08:27 Dose: 300 mg Documented By: PATRIA Buspirone HCl (Buspirone Hcl 5 Mg Tablet) 7.5 mg PO BID [facility] Last Admin: 10/22/24 08:28 Dose: 7.5 mg Documented By: PATRIA Calcium Carbonate (Calcium Carbonate 750 Mg Tab.Chew) 750 mg PO Q4H PRN PRN Reason: Heartburn Diltiazem HCl (Diltiazem Hcl Cd 180 Mg Cap.Er.24h) 180 mg PO DAILY [facility]; Protocol Last Admin: 10/22/24 08:27 Dose: 180 mg Documented By: PATRIA Docusate Sodium (Docusate Sodium 100 Mg/10 Ml Liquid) 50 mg PO DAILY PRN PRN Reason: Constipation Last Admin: 10/21/24 11:31 Dose: 50 mg Documented By: SON Docusate Sodium (Docusate Sodium 100 Mg Capsule) 100 mg PO BID [facility] Last Admin: 10/22/24 09:46 Dose: 100 mg Documented By: PATRIA Duloxetine HCl (Duloxetine Hcl 60 Mg Capsule.) 60 mg PO DAILY [facility] Last Admin: 10/22/24 08:27 Dose: 60 mg Documented By: PATRIA Furosemide (Furosemide 40 Mg/4 Ml Vial) 40 mg IVPUSH DAILY [facility]; Protocol Last Admin: 10/22/24 08:29 Dose: 40 mg Documented By: PATRIA Lisinopril (Lisinopril 40 Mg Tablet) 40 mg PO DAILY [facility]; Protocol Last Admin: 10/22/24 08:27 Dose: 40 mg Documented By: PATRIA Magnesium Hydroxide (Milk Of Magnesia 30 Ml Oral.Susp) 30 ml PO DAILY PRN PRN Reason: Constipation Melatonin (Melatonin 3 Mg Tablet) 6 mg PO BEDTIME PRN PRN Reason: Insomnia Multivitamins/Vitamin C (Multivitamin Tablet) 1 tab PO DAILY [facility] Last Admin: 10/22/24 08:27 Dose: 1 tab Documented By: PATRIA Omeprazole (Omeprazole 20 Mg Capsule.Dr) 20 mg PO DAILY@0630 [facility] Last Admin: 10/22/24 05:48 Dose: 20 mg Documented By: JORY Ondansetron HCl (Ondansetron Hcl 4 Mg/2 Ml Vial) 4 mg IVPUSH Q8H PRN PRN Reason: Nausea and Vomiting Potassium Chloride (Potassium Chloride Er 10 Meq Tablet.Er) 10 meq PO BID [facility] Last Admin: 10/22/24 08:27 Dose: 10 meq Documented By: PATRIA Sodium Chloride (0.9 % Sodium Chloride Flush 3 Ml Syringe) 3 ml IVFLUSH QSHIFT [facility] Last Admin: 10/22/24 08:36 Dose: 3 ml Documented By: PATRIA Vitamin D (Cholecalciferol (Vitamin D3) 25 Mcg Tablet) 50 mcg PO BEDTIME [facility] Last Admin: 10/21/24 20:30 Dose: 50 mcg Documented By: JORY Labs 10/20/24 05:11 10/22/24 09:34 Labs: Laboratory Results - last 24 hr 10/21/24 10/21/24 10/22/24 15:46 19:42 07:35 Anion Gap Estim Creat Clear Calc Estimated GFR POC Glucose 102 113 97 Random Glucose Calcium B-Natriuretic Peptide 10/22/24 10/22/24 09:34 11:24 Anion Gap 13 Estim Creat Clear Calc 49.9 Estimated GFR > 60 POC Glucose 131 H Random Glucose 152 H Calcium 10.1 B-Natriuretic Peptide 202 H Microbiology Microbiology Results: Microbiology 10/19/24 19:03 Blood Culture - Preliminary Blood - Venous No growth after 48 hours. 10/19/24 19:03 Blood Culture - Preliminary Blood - Venous No growth after 48 hours. Assessment and Plan (1) Acute exacerbation of CHF (congestive heart failure): Status: Acute Plan 84-year-old female with pertinent history of chronic hypoxemic respiratory failure due to COPD on baseline 3 L supplemental oxygen, mood disorder, history of PE and paroxysmal atrial flutter on Eliquis, gout, congestive heart failure with preserved ejection fraction who presents to the emergency department for evaluation of dyspnea. Acute on chronic congestive heart failure with preserved ejection fraction: sob seems somwhat improving po intake need to monitered properly( i/o),daily weights transthoracic echocardiogram:1. Normal LV ejection fraction 65-70% 2. Biatrial enlargement, right greater than left. 3. Mild aortic stenosis 4. Significantly increased gradient across bioprosthetic mitral valve suggestive of significant stenosis 5. Moderate to severe elevation of right ventricular systolic pressure . 6. No pericardial effusion plan; IV diuresis. Strict I's and O's. Scheduled and p.r.n. DuoNebs for cardiac wheezing. seen by cardiology-continue iv lasix , moniter i/o Chronic hypoxemic respiratory failure due to COPD: DuoNebs as above. Continue home inhaler. Defer steroids as can cause worsening of CHF. Leukocytosis, reactive and resolved. Dilatation of esophagus on imaging. Patient without any symptoms currently. Continue to monitor denies any acute symptoms ,cleared by speech Mood disorder: Continue home mood stabilizers. generalised weak-added pt eval. Proximal atrial flutter: On Eliquis ongoing need:Acute on chronic congestive heart failure with preserved ejection fraction-iv lasix ,i/o monitering ,cardiac workup ,renal function/electrolytic monitering Quality Stroke Does the patient have a stroke diagnosis?: No VTE Prior VTE?: No VTE Risk Level:: Medical - moderate - high VTE Device Contraindication: Treatment Not Indicated VTE Drug Contraindication: N/A - Med Ordered
[2024-10-22 16:26] LABS: Glucose, Whole Blood 110 mg/dL (60-115)
[2024-10-22] MEDS: buPROPion HCl XL 150 MG TAB.ER.24H PO (16:33)
[2024-10-22 20:27] LABS: Glucose, Whole Blood 109 mg/dL (60-115)
[2024-10-23] VITALS (7 sets, daily range): BP systolic 130–182; BP diastolic 60–68; PULSE 62–86; RESP 14–18; TEMP 36–36.3; O2SAT 95–100
--- NOTE | 2024-10-23 01:55 | MHC.PIE ---
p; pt c/o pain to back 5/10 asking for tylenol. note; prn tylenol 650mg q6 given at 2236. i; dr gallegos notified - new order tylenol 975mg q6. ok to give now e; will cont to monitor
[2024-10-23 06:51] LABS: B Type Natriuretic Peptide 218 pg/mL (<100)
[2024-10-23 06:57] LABS: Anion Gap 13 (12-20); Blood Urea Nitrogen 11 mg/dL (9-16); Calcium 10.5 mg/dL (8.4-10.2); Carbon Dioxide 34 mmol/L (22-29); Chloride 102 mmol/L (96-108); Creatinine Clr Calc Pharmacy 51.1; Estimated Glomerular Filt Rate > 60; Potassium 4.5 mmol/L (3.3-5.1); Sodium 144 mmol/L (135-145)
[2024-10-23 07:55] LABS: Glucose, Whole Blood 101 mg/dL (60-115)
[2024-10-23] MEDS: Potassium Chloride ER 10 MEQ TABLET.ER PO ×2 (08:32→20:33)
[2024-10-23] MEDS: dilTIAZem HCL CD 180 MG CAP.ER.24H PO (08:32)
[2024-10-23] MEDS: Furosemide 40 MG/4 ML VIAL IVPUSH (08:34)
[2024-10-23] MEDS: buPROPion HCl XL 300 MG TAB.ER.24H PO (08:34)
[2024-10-23] MEDS: 0.9 % Sodium Chloride Flush 3 ML SYRINGE IVFLUSH ×3 (08:35→20:33)
[2024-10-23] MEDS: PT OWN (Budesonide-Glycopyr-Formoterol [Breztri Aerosphere] 160-9-4.8 mc 2 EACH INHALE ×2 (08:42→20:37)
--- NOTE | 2024-10-23 11:13 | P.PNCA_ITS ---
Subjective Subjective Date of Service: 10/23/24 Principal diagnosis: Congestive heart failure status post MVR with stenosis Interval history: She states that she is okay at rest but when she starts walking she does get short of breath. Per sign-out and recent echocardiogram, suspected to be related to bioprosthetic mitral valve stenosis. Review of Systems Review of Systems Yes all other systems are reviewed and are negative Constitutional: Reports as per HPI and Reports no additional constitutional complaints Eyes: Reports as per HPI and Denies no additional eye complaints Denies system reviewed and no additional complaints, except as documented and Reports as per HPI Cardiovascular: Reports as per HPI, Reports no additional cardiovascular complaints, Denies acrocyanosis, Denies cool extremities, Denies chest pain, Denies leg edema, Denies lightheadedness, Denies palpitations and Reports dyspnea Respiratory: Reports as per HPI, Denies no additional respiratory complaints and Reports dyspnea Gastrointestinal: Reports as per HPI and Denies no additional gastrointestinal complaints Genitourinary: Reports as per HPI Musculoskeletal: Reports no additional musculoskeletal complaints and Reports as per HPI Skin/Breast: Reports system reviewed and no additional complaints, except as docu Reports system reviewed and no additional complaints, except as documented and Reports as per HPI Psychiatric: Reports no additional psychiatric complaints and Reports as per HPI Endocrine: Reports no additional endocrine complaints, Reports as per HPI and Denies palpitations Hematologic/Lymphatic: Reports no additional hematologic/lymphatic complaints and Reports as per HPI Allergic/Immunologic: Reports no additional allergic/immunologic complaints and Reports as per HPI Physical Exam Vital Signs: Last Vital Signs Temp 97.1 F 10/23/24 07:47 Pulse 62 10/23/24 07:47 Resp 14 10/23/24 07:47 BP 130/60 10/23/24 07:47 Pulse Ox 97 10/23/24 07:47 O2 Del Method Nasal Cannula 10/23/24 07:47 O2 Flow Rate 2 10/23/24 07:47 Oxygen Flow Rate 2 10/19/24 16:14 BMI result Body Mass Index 35.7 Const General: comfortable and no acute distress Orientation/consciousness: patient oriented x3 HEENT Other: Unremarkable Head: Yes normal to inspection Neck Neck: Yes normal visual inspection Chest Chest palpation & inspection: normal inspection of the chest Resp Auscultation: crackles Cardio Palpation: normal PMI Heart sounds: S1 normal heart sound present, S2 normal heart sound present, no gallops, no murmurs and no rubs GI Palpation (GI): Soft to palpation Back/Spine/Pelvis Other: unremarkable Skin General skin exam: no rashes or lesions noted Neuro General: patient oriented x3 Extrem General: Yes normal to inspection Psych Mental Status: mental status grossly normal Objective Labs and Meds 10/20/24 05:11 10/23/24 05:48 Lab results: Laboratory Results - last 24 hr 10/22/24 10/22/24 10/22/24 11:24 16:14 20:17 Hold Purple Top Sodium Potassium Chloride Carbon Dioxide Anion Gap BUN Creatinine Estim Creat Clear Calc Estimated GFR POC Glucose 131 H 110 109 Random Glucose Calcium B-Natriuretic Peptide 10/23/24 10/23/24 05:48 07:51 Hold Purple Top SEE NOTE Sodium 144 Potassium 4.5 D Chloride 102 Carbon Dioxide 34 H Anion Gap 13 BUN 11 Creatinine 0.81 Estim Creat Clear Calc 51.1 Estimated GFR > 60 POC Glucose 101 Random Glucose 104 Calcium 10.5 H B-Natriuretic Peptide 218 H Progress Note: A&P Assessment and plan (1) Acute exacerbation of CHF (congestive heart failure): Status: Acute (2) S/P mitral valve replacement with bioprosthetic valve: Status: Acute (3) Prosthetic mitral valve stenosis: Status: Acute Plan Per recent echocardiogram, LVEF is 65-70%. Description of bioprosthetic mitral valve stenosis. Mild aortic stenosis. [id number] pulmonary hypertension. Clinically, she does not appear overtly volume overloaded. Continue with IV diuretics. Renal function is stable with a BUN of 11 creatinine of 0.81. 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 Time Spent With Patient Time: Total time managing care of this patient today ____ minutes. Progress Note: Quality Stroke Does the patient have a stroke diagnosis?: No Procedures Date of Service Date of Service: 10/23/24
--- NOTE | 2024-10-23 11:24 | P.PNIM_ITS ---
Subjective Subjective Date of Service: 10/23/24 Interval History: chf execerebation Review of Systems sob seems improving,still sob with minimal excersion no chest pain Review of Systems: Yes all other systems are reviewed and are negative Physical Exam 2 Exam: Exam: cvs:Regular rate and rhythm, S1-S2 heard chest:air entry diminshed ,mild Bilateral crackles. Abdomen soft nontender, no guarding, no rigidity Patient is awake, alert and oriented x3 ; no focal motor deficit Psych: Normal mood Mild pedal edema Vital Signs: Vital Signs: Last Vital Signs Temp 97.1 F 10/23/24 07:47 Pulse 62 10/23/24 07:47 Resp 14 10/23/24 07:47 BP 130/60 10/23/24 07:47 Pulse Ox 97 10/23/24 07:47 O2 Del Method Nasal Cannula 10/23/24 07:47 O2 Flow Rate 2 10/23/24 07:47 Oxygen Flow Rate 2 10/19/24 16:14 BMI result Body Mass Index 35.7 Objective Data Active Medications Acetaminophen (Acetaminophen 325 Mg Tablet) 975 mg PO Q6H PRN PRN Reason: Pain, Mild 1-3,fever,headache Last Admin: 10/23/24 01:53 Dose: 975 mg Documented By: SOLEDAD Albuterol/Ipratropium (Albuterol/Iprat 2.5/0.5mg 3 Ml Ampul.Neb) 3 ml INHALE Q4H PRN PRN Reason: Shortness of Breath/Wheezing Albuterol/Ipratropium (Albuterol/Iprat 2.5/0.5mg 3 Ml Ampul.Neb) 3 ml INHALE RQ4H WHILE AWAKE [facility] Last Admin: 10/23/24 07:47 Dose: Not Given Documented By: LATONYA Non-Admin Reason: Patient Refused Allopurinol (Allopurinol 100 Mg Tablet) 100 mg PO DAILY [facility] Last Admin: 10/23/24 08:32 Dose: 100 mg Documented By: PATRIA Apixaban (Apixaban 5 Mg Tablet) 5 mg PO BID [facility] Last Admin: 10/23/24 08:33 Dose: 5 mg Documented By: PATRIA Atorvastatin Calcium (Atorvastatin Calcium 80 Mg Tablet) 80 mg PO BEDTIME [facility] Last Admin: 10/22/24 20:11 Dose: 80 mg Documented By: SOLEDAD Benzonatate (Benzonatate 100 Mg Capsule) 100 mg PO TID PRN PRN Reason: Cough Bisacodyl (Bisacodyl 5 Mg Tablet.) 10 mg PO BEDTIME PRN PRN Reason: Constipation Bupropion HCl (Bupropion Hcl Xl 150 Mg Tab.Er.24h) 150 mg PO DAILY@1700 [facility] Last Admin: 10/22/24 16:33 Dose: 150 mg Documented By: MANI Bupropion HCl (Bupropion Hcl Xl 300 Mg Tab.Er.24h) 300 mg PO DAILY [facility] Last Admin: 10/23/24 08:34 Dose: 300 mg Documented By: PATRIA Buspirone HCl (Buspirone Hcl 5 Mg Tablet) 7.5 mg PO BID [facility] Last Admin: 10/23/24 08:32 Dose: 7.5 mg Documented By: PATRIA Calcium Carbonate (Calcium Carbonate 750 Mg Tab.Chew) 750 mg PO Q4H PRN PRN Reason: Heartburn Diltiazem HCl (Diltiazem Hcl Cd 180 Mg Cap.Er.24h) 180 mg PO DAILY [facility]; Protocol Last Admin: 10/23/24 08:32 Dose: 180 mg Documented By: PATRIA Docusate Sodium (Docusate Sodium 100 Mg/10 Ml Liquid) 50 mg PO DAILY PRN PRN Reason: Constipation Last Admin: 10/21/24 11:31 Dose: 50 mg Documented By: GRAZMEHNAZ Docusate Sodium (Docusate Sodium 100 Mg Capsule) 100 mg PO BID [facility] Last Admin: 10/23/24 08:32 Dose: 100 mg Documented By: PATRIA Duloxetine HCl (Duloxetine Hcl 60 Mg Capsule.) 60 mg PO DAILY [facility] Last Admin: 10/23/24 08:32 Dose: 60 mg Documented By: PATRIA Furosemide (Furosemide 40 Mg/4 Ml Vial) 40 mg IVPUSH DAILY [facility]; Protocol Last Admin: 10/23/24 08:34 Dose: 40 mg Documented By: PATRIA Lisinopril (Lisinopril 40 Mg Tablet) 40 mg PO DAILY [facility]; Protocol Last Admin: 10/23/24 08:34 Dose: 40 mg Documented By: PATRIA Magnesium Hydroxide (Milk Of Magnesia 30 Ml Oral.Susp) 30 ml PO DAILY PRN PRN Reason: Constipation Melatonin (Melatonin 3 Mg Tablet) 6 mg PO BEDTIME PRN PRN Reason: Insomnia Multivitamins/Vitamin C (Multivitamin Tablet) 1 tab PO DAILY [facility] Last Admin: 10/23/24 08:34 Dose: 1 tab Documented By: PATRIA Pt Own (Budesonide- Glycopyr-Formoterol [Breztri Aerosphere] 160-9-4.8 Mc 2 inhalation INHALE BID [facility] Last Admin: 10/23/24 08:42 Dose: 2 inhalation Documented By: PATRIA Omeprazole (Omeprazole 20 Mg Capsule.Dr) 20 mg PO DAILY@0630 [facility] Last Admin: 10/23/24 06:14 Dose: 20 mg Documented By: SOLEDAD Ondansetron HCl (Ondansetron Hcl 4 Mg/2 Ml Vial) 4 mg IVPUSH Q8H PRN PRN Reason: Nausea and Vomiting Potassium Chloride (Potassium Chloride Er 10 Meq Tablet.Er) 10 meq PO BID [facility] Last Admin: 10/23/24 08:32 Dose: 10 meq Documented By: PATRIA Sodium Chloride (0.9 % Sodium Chloride Flush 3 Ml Syringe) 3 ml IVFLUSH QSHIFT [facility] Last Admin: 10/23/24 08:35 Dose: 3 ml Documented By: PATRIA Vitamin D (Cholecalciferol (Vitamin D3) 25 Mcg Tablet) 50 mcg PO BEDTIME [facility] Last Admin: 10/22/24 20:11 Dose: 50 mcg Documented By: SOLEDAD Labs 10/20/24 05:11 10/23/24 05:48 Labs: Laboratory Results - last 24 hr 10/22/24 10/22/24 10/22/24 11:24 16:14 20:17 Hold Purple Top Anion Gap Estim Creat Clear Calc Estimated GFR POC Glucose 131 H 110 109 Random Glucose Calcium B-Natriuretic Peptide 10/23/24 10/23/24 05:48 07:51 Hold Purple Top SEE NOTE Anion Gap 13 Estim Creat Clear Calc 51.1 Estimated GFR > 60 POC Glucose 101 Random Glucose 104 Calcium 10.5 H B-Natriuretic Peptide 218 H Assessment and Plan (1) Acute exacerbation of CHF (congestive heart failure): Status: Acute Plan 84-year-old female with pertinent history of chronic hypoxemic respiratory failure due to COPD on baseline 3 L supplemental oxygen, mood disorder, history of PE and paroxysmal atrial flutter on Eliquis, gout, congestive heart failure with preserved ejection fraction who presents to the emergency department for evaluation of dyspnea. Acute on chronic congestive heart failure with preserved ejection fraction: sob seems somwhat improving po intake need to monitered properly( i/o),daily weights transthoracic echocardiogram:1. Normal LV ejection fraction 65-70% 2. Biatrial enlargement, right greater than left. 3. Mild aortic stenosis 4. Significantly increased gradient across bioprosthetic mitral valve suggestive of significant stenosis 5. Moderate to severe elevation of right ventricular systolic pressure . 6. No pericardial effusion plan; IV diuresis. Strict I's and O's. Scheduled and p.r.n. DuoNebs for cardiac wheezing. seen by cardiology-continue iv lasix , moniter i/o Chronic hypoxemic respiratory failure due to COPD: DuoNebs as above. Continue home inhaler. Defer steroids as can cause worsening of CHF. Leukocytosis, reactive and resolved. Dilatation of esophagus on imaging. Patient without any symptoms currently. Continue to monitor denies any acute symptoms ,cleared by speech Mood disorder: Continue home mood stabilizers. generalised weak-added pt eval. Proximal atrial flutter: On Eliquis ongoing need:Acute on chronic congestive heart failure with preserved ejection fraction-iv lasix ,i/o monitering ,cardiac workup ,renal function/electrolytic monitering Quality Stroke Does the patient have a stroke diagnosis?: No VTE Prior VTE?: No VTE Risk Level:: Medical - moderate - high VTE Device Contraindication: Treatment Not Indicated VTE Drug Contraindication: N/A - Med Ordered
[2024-10-23 11:27] LABS: Glucose, Whole Blood 160 mg/dL (60-115)
[2024-10-23] MEDS: Albuterol/Iprat 2.5/0.5MG 3 ML AMPUL.NEB INHALE ×3 (11:36→20:02)
[2024-10-23 16:09] LABS: Glucose, Whole Blood 143 mg/dL (60-115)
[2024-10-23] MEDS: buPROPion HCl XL 150 MG TAB.ER.24H PO (16:56)
[2024-10-23 20:17] LABS: Glucose, Whole Blood 131 mg/dL (60-115)
[2024-10-24] VITALS (9 sets, daily range): BP systolic 122–179; BP diastolic 60–72; PULSE 59–78; RESP 12–18; TEMP 36.1–36.9; O2SAT 94–100
[2024-10-24 07:44] LABS: Glucose, Whole Blood 91 mg/dL (60-115)
--- NOTE | 2024-10-24 07:52 | HO.PM.IMPN ---
Subjective Subjective Date of Service: 10/24/24 Interval History: chf Review of Systems sob seems slightly improving ,but still sob with ambulation Review of Systems: Yes all other systems are reviewed and are negative Physical Exam Exam: Exam: cvs:Regular rate and rhythm, S1-S2 heard chest:air entry diminshed ,mild Bilateral crackles. Abdomen soft nontender, no guarding, no rigidity Patient is awake, alert and oriented x3 ; no focal motor deficit Psych: Normal mood Mild pedal edema Vital Signs: Vital Signs: Last Vital Signs Temp 97.4 F 10/24/24 07:18 Pulse 60 10/24/24 07:18 Resp 16 10/24/24 07:18 BP 167/71 H 10/24/24 07:18 Pulse Ox 94 10/24/24 07:18 O2 Del Method Nasal Cannula 10/24/24 07:18 O2 Flow Rate 2 10/24/24 07:18 Oxygen Flow Rate 2 10/19/24 16:14 BMI result Body Mass Index 35.7 Objective Data Active Medications Acetaminophen (Acetaminophen 325 Mg Tablet) 975 mg PO Q6H PRN PRN Reason: Pain, Mild 1-3,fever,headache Last Admin: 10/23/24 22:52 Dose: 975 mg Documented By: NATHANIEL Albuterol/Ipratropium (Albuterol/Iprat 2.5/0.5mg 3 Ml Ampul.Neb) 3 ml INHALE Q4H PRN PRN Reason: Shortness of Breath/Wheezing Albuterol/Ipratropium (Albuterol/Iprat 2.5/0.5mg 3 Ml Ampul.Neb) 3 ml INHALE RQ4H WHILE AWAKE [facility] Last Admin: 10/23/24 20:02 Dose: 3 ml Documented By: BRAD Allopurinol (Allopurinol 100 Mg Tablet) 100 mg PO DAILY [facility] Last Admin: 10/23/24 08:32 Dose: 100 mg Documented By: PATRIA Apixaban (Apixaban 5 Mg Tablet) 5 mg PO BID [facility] Last Admin: 10/23/24 20:33 Dose: 5 mg Documented By: NATHANIEL Atorvastatin Calcium (Atorvastatin Calcium 80 Mg Tablet) 80 mg PO BEDTIME [facility] Last Admin: 10/23/24 20:33 Dose: 80 mg Documented By: NATHANIEL Benzonatate (Benzonatate 100 Mg Capsule) 100 mg PO TID PRN PRN Reason: Cough Bisacodyl (Bisacodyl 5 Mg Tablet.Dr) 10 mg PO BEDTIME PRN PRN Reason: Constipation Bupropion HCl (Bupropion Hcl Xl 150 Mg Tab.Er.24h) 150 mg PO DAILY@1700 [facility] Last Admin: 10/23/24 16:56 Dose: 150 mg Documented By: PATRIA Bupropion HCl (Bupropion Hcl Xl 300 Mg Tab.Er.24h) 300 mg PO DAILY [facility] Last Admin: 10/23/24 08:34 Dose: 300 mg Documented By: PATRIA Buspirone HCl (Buspirone Hcl 5 Mg Tablet) 7.5 mg PO BID [facility] Last Admin: 10/23/24 20:32 Dose: 7.5 mg Documented By: NATHANIEL Calcium Carbonate (Calcium Carbonate 750 Mg Tab.Chew) 750 mg PO Q4H PRN PRN Reason: Heartburn Diltiazem HCl (Diltiazem Hcl Cd 180 Mg Cap.Er.24h) 180 mg PO DAILY [facility]; Protocol Last Admin: 10/23/24 08:32 Dose: 180 mg Documented By: PATRIA Docusate Sodium (Docusate Sodium 100 Mg/10 Ml Liquid) 50 mg PO DAILY PRN PRN Reason: Constipation Last Admin: 10/21/24 11:31 Dose: 50 mg Documented By: SON Docusate Sodium (Docusate Sodium 100 Mg Capsule) 100 mg PO BID [facility] Last Admin: 10/23/24 20:33 Dose: 100 mg Documented By: NATHANIEL Duloxetine HCl (Duloxetine Hcl 60 Mg Capsule.) 60 mg PO DAILY [facility] Last Admin: 10/23/24 08:32 Dose: 60 mg Documented By: PATRIA Furosemide (Furosemide 40 Mg/4 Ml Vial) 40 mg IVPUSH DAILY [facility]; Protocol Last Admin: 10/23/24 08:34 Dose: 40 mg Documented By: PATRIA Lisinopril (Lisinopril 40 Mg Tablet) 40 mg PO DAILY [facility]; Protocol Last Admin: 10/23/24 08:34 Dose: 40 mg Documented By: PATRIA Magnesium Hydroxide (Milk Of Magnesia 30 Ml Oral.Susp) 30 ml PO DAILY PRN PRN Reason: Constipation Melatonin (Melatonin 3 Mg Tablet) 6 mg PO BEDTIME PRN PRN Reason: Insomnia Multivitamins/Vitamin C (Multivitamin Tablet) 1 tab PO DAILY [facility] Last Admin: 10/23/24 08:34 Dose: 1 tab Documented By: PATRIA Pt Own (Budesonide- Glycopyr-Formoterol [Breztri Aerosphere] 160-9-4.8 Mc 2 inhalation INHALE BID [facility] Last Admin: 10/23/24 20:37 Dose: 2 inhalation Documented By: NATHANIEL Omeprazole (Omeprazole 20 Mg Capsule.Dr) 20 mg PO DAILY@0630 [facility] Last Admin: 10/24/24 05:27 Dose: 20 mg Documented By: NATHANIEL Ondansetron HCl (Ondansetron Hcl 4 Mg/2 Ml Vial) 4 mg IVPUSH Q8H PRN PRN Reason: Nausea and Vomiting Potassium Chloride (Potassium Chloride Er 10 Meq Tablet.Er) 10 meq PO BID [facility] Last Admin: 10/23/24 20:33 Dose: 10 meq Documented By: NATHANIEL Sodium Chloride (0.9 % Sodium Chloride Flush 3 Ml Syringe) 3 ml IVFLUSH QSHIFT [facility] Last Admin: 10/23/24 20:33 Dose: 3 ml Documented By: NATHANIEL Vitamin D (Cholecalciferol (Vitamin D3) 25 Mcg Tablet) 50 mcg PO BEDTIME [facility] Last Admin: 10/23/24 20:33 Dose: 50 mcg Documented By: NATHANIEL Labs 10/20/24 05:11 10/24/24 08:37 Labs: Laboratory Results - last 24 hr 10/23/24 10/23/24 10/23/24 07:51 11:20 15:58 POC Glucose 101 160 H 143 H 10/23/24 10/24/24 20:10 07:23 POC Glucose 131 H 91 Assessment and Plan (1) Acute exacerbation of CHF (congestive heart failure): Status: Acute Plan 84-year-old female with pertinent history of chronic hypoxemic respiratory failure due to COPD on baseline 3 L supplemental oxygen, mood disorder, history of PE and paroxysmal atrial flutter on Eliquis, gout, congestive heart failure with preserved ejection fraction who presents to the emergency department for evaluation of dyspnea. Acute on chronic congestive heart failure with preserved ejection fraction: sob seems somwhat improving po intake need to monitered properly( i/o),daily weights transthoracic echocardiogram:1. Normal LV ejection fraction 65-70% 2. Biatrial enlargement, right greater than left. 3. Mild aortic stenosis 4. Significantly increased gradient across bioprosthetic mitral valve suggestive of significant stenosis 5. Moderate to severe elevation of right ventricular systolic pressure . 6. No pericardial effusion plan; IV diuresis. Strict I's and O's. Scheduled and p.r.n. DuoNebs for cardiac wheezing. seen by cardiology-continue iv lasix , moniter i/o 4 liter negative Chronic hypoxemic respiratory failure due to COPD: DuoNebs as above. Continue home inhaler. Defer steroids as can cause worsening of CHF. Leukocytosis, reactive and resolved. Dilatation of esophagus on imaging. Patient without any symptoms currently. Continue to monitor denies any acute symptoms ,cleared by speech Mood disorder: Continue home mood stabilizers. generalised weak-added pt eval. Proximal atrial flutter: On Eliquis ongoing need:Acute on chronic congestive heart failure with preserved ejection fraction-iv lasix ,i/o monitering ,cardiac workup ,renal function/electrolytic monitering Quality Stroke Does the patient have a stroke diagnosis?: No VTE Prior VTE?: No VTE Risk Level:: Medical - moderate - high VTE Device Contraindication: Treatment Not Indicated VTE Drug Contraindication: N/A - Med Ordered
[2024-10-24] MEDS: buPROPion HCl XL 300 MG TAB.ER.24H PO (08:24)
[2024-10-24] MEDS: dilTIAZem HCL CD 180 MG CAP.ER.24H PO (08:24)
[2024-10-24] MEDS: Furosemide 40 MG/4 ML VIAL IVPUSH (08:24)
[2024-10-24] MEDS: Potassium Chloride ER 10 MEQ TABLET.ER PO ×2 (08:25→20:46)
[2024-10-24] MEDS: 0.9 % Sodium Chloride Flush 3 ML SYRINGE IVFLUSH ×3 (08:25→20:47)
[2024-10-24] MEDS: Albuterol/Iprat 2.5/0.5MG 3 ML AMPUL.NEB INHALE ×4 (08:40→21:15)
[2024-10-24 09:42] LABS: Anion Gap 12 (12-20); Blood Urea Nitrogen 11 mg/dL (9-16); Calcium 10.0 mg/dL (8.4-10.2); Carbon Dioxide 33 mmol/L (22-29); Chloride 102 mmol/L (96-108); Creatinine Clr Calc Pharmacy 51.8; Estimated Glomerular Filt Rate > 60; Potassium 3.9 mmol/L (3.3-5.1); Sodium 143 mmol/L (135-145)
[2024-10-24 09:47] LABS: B Type Natriuretic Peptide 222 pg/mL (<100)
--- NOTE | 2024-10-24 10:25 | PM.PNCARD ---
Subjective Subjective Date of Service: 10/24/24 Principal diagnosis: Congestive heart failure status post MVR with stenosis Interval history: She states that she is feeling better. Improving shortness of breath. Still feels deconditioned. Review of Systems Review of Systems Yes all other systems are reviewed and are negative Constitutional: Reports as per HPI and Reports no additional constitutional complaints Eyes: Reports as per HPI and Denies no additional eye complaints Denies system reviewed and no additional complaints, except as documented and Reports as per HPI Cardiovascular: Reports as per HPI, Reports no additional cardiovascular complaints, Denies acrocyanosis, Denies cool extremities, Denies chest pain, Denies leg edema, Denies lightheadedness, Denies palpitations and Reports dyspnea Respiratory: Reports as per HPI, Denies no additional respiratory complaints and Reports dyspnea Gastrointestinal: Reports as per HPI and Denies no additional gastrointestinal complaints Genitourinary: Reports as per HPI Musculoskeletal: Reports no additional musculoskeletal complaints and Reports as per HPI Skin/Breast: Reports system reviewed and no additional complaints, except as docu Reports system reviewed and no additional complaints, except as documented and Reports as per HPI Psychiatric: Reports no additional psychiatric complaints and Reports as per HPI Endocrine: Reports no additional endocrine complaints, Reports as per HPI and Denies palpitations Hematologic/Lymphatic: Reports no additional hematologic/lymphatic complaints and Reports as per HPI Allergic/Immunologic: Reports no additional allergic/immunologic complaints and Reports as per HPI Physical Exam Vital Signs: Last Vital Signs Temp 97.4 F 10/24/24 07:18 Pulse 78 10/24/24 08:40 Resp 16 10/24/24 07:18 BP 167/71 H 10/24/24 07:18 Pulse Ox 94 10/24/24 07:18 O2 Del Method Nasal Cannula 10/24/24 07:18 O2 Flow Rate 2 10/24/24 07:18 Oxygen Flow Rate 2 10/19/24 16:14 BMI result Body Mass Index 35.7 Const General: comfortable and no acute distress Orientation/consciousness: patient oriented x3 HEENT Other: Unremarkable Head: Yes normal to inspection Neck Neck: Yes normal visual inspection Chest Chest palpation & inspection: normal inspection of the chest Resp Auscultation: crackles Cardio Palpation: normal PMI Heart sounds: S1 normal heart sound present, S2 normal heart sound present, no gallops, no murmurs and no rubs GI Palpation (GI): Soft to palpation Back/Spine/Pelvis Other: unremarkable Skin General skin exam: no rashes or lesions noted Neuro General: patient oriented x3 Extrem Other: Trace edema General: Yes normal to inspection Psych Mental Status: mental status grossly normal Objective Labs and Meds 10/20/24 05:11 10/24/24 08:37 Lab results: Laboratory Results - last 24 hr 10/23/24 10/23/24 10/23/24 11:20 15:58 20:10 Sodium Potassium Chloride Carbon Dioxide Anion Gap BUN Creatinine Estim Creat Clear Calc Estimated GFR POC Glucose 160 H 143 H 131 H Random Glucose Calcium B-Natriuretic Peptide 10/24/24 10/24/24 07:23 08:37 Sodium 143 Potassium 3.9 Chloride 102 Carbon Dioxide 33 H Anion Gap 12 BUN 11 Creatinine 0.80 Estim Creat Clear Calc 51.8 Estimated GFR > 60 POC Glucose 91 Random Glucose 101 Calcium 10.0 B-Natriuretic Peptide 222 H Progress Note: A&P Assessment and plan (1) Acute exacerbation of CHF (congestive heart failure): Status: Acute (2) S/P mitral valve replacement with bioprosthetic valve: Status: Acute (3) Prosthetic mitral valve stenosis: Status: Acute Plan Per recent echocardiogram, LVEF is 65-70%. Description of bioprosthetic mitral valve stenosis. Mild aortic stenosis. [id number] pulmonary hypertension. Per I/O charting, she is negative 2890ml. Renal function remains stable. We can continue IV diuretics for another day or so and then switch her back to p.o.. With regard to the finding of prosthetic mitral valve dysfunction, we will need follow up with her own administrative specialist as an outpatient. Concurrent treatment of her COPD and that may also be contributing to her shortness of breath. Clinically, she does not appear overtly volume overloaded. Continue with IV diuretics. Renal function is stable with a BUN of 11 creatinine of 0.81. With regard to the question of prosthetic mitral valve dysfunction, most likely outpatient workup through her own administrative specialist. Ambulate her and see how she does. Time Spent With Patient Time: Total time managing care of this patient today ____ minutes. Progress Note: Quality Stroke Does the patient have a stroke diagnosis?: No Procedures Date of Service Date of Service: 10/24/24
[2024-10-24] MEDS: PT OWN (Budesonide-Glycopyr-Formoterol [Breztri Aerosphere] 160-9-4.8 mc 2 EACH INHALE ×2 (10:50→20:46)
--- NOTE | 2024-10-24 15:54 | MHC.CM.PN ---
per rounds pt may be transferred to [facility]
[2024-10-24 16:50] LABS: Glucose, Whole Blood 122 mg/dL (60-115)
[2024-10-24] MEDS: buPROPion HCl XL 150 MG TAB.ER.24H PO (17:57)
[2024-10-24 19:58] LABS: Glucose, Whole Blood 158 mg/dL (60-115)
[2024-10-25 03:37] VITALS: BP 173/76; PULSE 53; RESP 16; TEMP 36.1; O2SAT 93
--- NOTE | 2024-10-25 07:30 | P.PNIM_ITS ---
Subjective Subjective Date of Service: 10/25/24 Interval History: chf Review of Systems Review of Systems: Yes all other systems are reviewed and are negative Physical Exam 2 Vital Signs: Vital Signs: Last Vital Signs Temp 96.9 F 10/25/24 03:37 Pulse 53 10/25/24 03:37 Resp 16 10/25/24 03:37 BP 173/76 H 10/25/24 03:37 Pulse Ox 93 10/25/24 03:37 O2 Del Method Nasal Cannula 10/25/24 03:37 O2 Flow Rate 2 10/25/24 03:37 Oxygen Flow Rate 2 10/19/24 16:14 BMI result Body Mass Index 35.7 Objective Data Active Medications Acetaminophen (Acetaminophen 325 Mg Tablet) 975 mg PO Q6H PRN PRN Reason: Pain, Mild 1-3,fever,headache Last Admin: 10/24/24 12:12 Dose: 975 mg Documented By: YANELIS Albuterol/Ipratropium (Albuterol/Iprat 2.5/0.5mg 3 Ml Ampul.Neb) 3 ml INHALE Q4H PRN PRN Reason: Shortness of Breath/Wheezing Albuterol/Ipratropium (Albuterol/Iprat 2.5/0.5mg 3 Ml Ampul.Neb) 3 ml INHALE RQ4H WHILE AWAKE [facility] Last Admin: 10/24/24 21:15 Dose: 3 ml Documented By: BRAD Allopurinol (Allopurinol 100 Mg Tablet) 100 mg PO DAILY [facility] Last Admin: 10/24/24 08:24 Dose: 100 mg Documented By: YANELIS Apixaban (Apixaban 5 Mg Tablet) 5 mg PO BID [facility] Last Admin: 10/24/24 20:46 Dose: 5 mg Documented By: NATHANIEL Atorvastatin Calcium (Atorvastatin Calcium 80 Mg Tablet) 80 mg PO BEDTIME [facility] Last Admin: 10/24/24 20:46 Dose: 80 mg Documented By: NATHANIEL Benzonatate (Benzonatate 100 Mg Capsule) 100 mg PO TID PRN PRN Reason: Cough Bisacodyl (Bisacodyl 5 Mg Tablet.Dr) 10 mg PO BEDTIME PRN PRN Reason: Constipation Bupropion HCl (Bupropion Hcl Xl 150 Mg Tab.Er.24h) 150 mg PO DAILY@1700 [facility] Last Admin: 10/24/24 17:57 Dose: 150 mg Documented By: YANELIS Bupropion HCl (Bupropion Hcl Xl 300 Mg Tab.Er.24h) 300 mg PO DAILY [facility] Last Admin: 10/24/24 08:24 Dose: 300 mg Documented By: YANELIS Buspirone HCl (Buspirone Hcl 5 Mg Tablet) 7.5 mg PO BID [facility] Last Admin: 10/24/24 20:46 Dose: 7.5 mg Documented By: NATHANIEL Calcium Carbonate (Calcium Carbonate 750 Mg Tab.Chew) 750 mg PO Q4H PRN PRN Reason: Heartburn Diltiazem HCl (Diltiazem Hcl Cd 180 Mg Cap.Er.24h) 180 mg PO DAILY [facility]; Protocol Last Admin: 10/24/24 08:24 Dose: 180 mg Documented By: YANELIS Docusate Sodium (Docusate Sodium 100 Mg/10 Ml Liquid) 50 mg PO DAILY PRN PRN Reason: Constipation Last Admin: 10/21/24 11:31 Dose: 50 mg Documented By: SON Docusate Sodium (Docusate Sodium 100 Mg Capsule) 100 mg PO BID [facility] Last Admin: 10/24/24 20:46 Dose: 100 mg Documented By: NATHANIEL Duloxetine HCl (Duloxetine Hcl 60 Mg Capsule.Dr) 60 mg PO DAILY [facility] Last Admin: 10/24/24 08:24 Dose: 60 mg Documented By: YANELIS Furosemide (Furosemide 40 Mg/4 Ml Vial) 40 mg IVPUSH DAILY [facility]; Protocol Last Admin: 10/24/24 08:24 Dose: 40 mg Documented By: YANELIS Hydralazine HCl (Hydralazine Hcl 10 Mg Tablet) 10 mg PO BID [facility]; Protocol Last Admin: 10/24/24 20:46 Dose: 10 mg Documented By: NATHANIEL Lisinopril (Lisinopril 40 Mg Tablet) 40 mg PO DAILY [facility]; Protocol Last Admin: 10/24/24 08:24 Dose: 40 mg Documented By: YANELIS Magnesium Hydroxide (Milk Of Magnesia 30 Ml Oral.Susp) 30 ml PO DAILY PRN PRN Reason: Constipation Melatonin (Melatonin 3 Mg Tablet) 6 mg PO BEDTIME PRN PRN Reason: Insomnia Multivitamins/Vitamin C (Multivitamin Tablet) 1 tab PO DAILY [facility] Last Admin: 10/24/24 08:24 Dose: 1 tab Documented By: YANELIS Pt Own (Budesonide- Glycopyr-Formoterol [Breztri Aerosphere] 160-9-4.8 Mc 2 inhalation INHALE BID [facility] Last Admin: 10/24/24 20:46 Dose: 2 inhalation Documented By: NATHANIEL Omeprazole (Omeprazole 20 Mg Capsule.Dr) 20 mg PO DAILY@0630 [facility] Last Admin: 10/25/24 05:25 Dose: 20 mg Documented By: NATHANIEL Ondansetron HCl (Ondansetron Hcl 4 Mg/2 Ml Vial) 4 mg IVPUSH Q8H PRN PRN Reason: Nausea and Vomiting Potassium Chloride (Potassium Chloride Er 10 Meq Tablet.Er) 10 meq PO BID [facility] Last Admin: 10/24/24 20:46 Dose: 10 meq Documented By: NATHANIEL Sodium Chloride (0.9 % Sodium Chloride Flush 3 Ml Syringe) 3 ml IVFLUSH QSHIFT [facility] Last Admin: 10/24/24 20:47 Dose: 3 ml Documented By: NATHANIEL Vitamin D (Cholecalciferol (Vitamin D3) 25 Mcg Tablet) 50 mcg PO BEDTIME [facility] Last Admin: 10/24/24 20:46 Dose: 50 mcg Documented By: NATHANIEL Labs 10/20/24 05:11 10/24/24 08:37 Labs: Laboratory Results - last 24 hr 10/24/24 10/24/24 10/24/24 07:23 08:37 16:22 Anion Gap 12 Estim Creat Clear Calc 51.8 Estimated GFR > 60 POC Glucose 91 122 H Random Glucose 101 Calcium 10.0 B-Natriuretic Peptide 222 H 10/24/24 19:04 Anion Gap Estim Creat Clear Calc Estimated GFR POC Glucose 158 H Random Glucose Calcium B-Natriuretic Peptide Microbiology Microbiology Results: Microbiology 10/19/24 19:03 Blood Culture - Final Blood - Venous No growth after 5 days. 10/19/24 19:03 Blood Culture - Final Blood - Venous No growth after 5 days. Assessment and Plan (1) Acute exacerbation of CHF (congestive heart failure): Status: Acute Plan 84-year-old female with pertinent history of chronic hypoxemic respiratory failure due to COPD on baseline 3 L supplemental oxygen, mood disorder, history of PE and paroxysmal atrial flutter on Eliquis, gout, congestive heart failure with preserved ejection fraction who presents to the emergency department for evaluation of dyspnea. Acute on chronic congestive heart failure with preserved ejection fraction: sob seems somwhat improving po intake need to monitered properly( i/o),daily weights transthoracic echocardiogram:1. Normal LV ejection fraction 65-70% 2. Biatrial enlargement, right greater than left. 3. Mild aortic stenosis 4. Significantly increased gradient across bioprosthetic mitral valve suggestive of significant stenosis 5. Moderate to severe elevation of right ventricular systolic pressure . 6. No pericardial effusion plan; IV diuresis. Strict I's and O's. Scheduled and p.r.n. DuoNebs for cardiac wheezing. seen by cardiology-continue iv lasix , moniter i/o 4 liter negative Chronic hypoxemic respiratory failure due to COPD: DuoNebs as above. Continue home inhaler. Defer steroids as can cause worsening of CHF. Leukocytosis, reactive and resolved. Dilatation of esophagus on imaging. Patient without any symptoms currently. Continue to monitor denies any acute symptoms ,cleared by speech Mood disorder: Continue home mood stabilizers. generalised weak-added pt eval. Proximal atrial flutter: On Eliquis ongoing need:Acute on chronic congestive heart failure with preserved ejection fraction-iv lasix ,i/o monitering ,cardiac workup ,renal function/electrolytic monitering Quality Stroke Does the patient have a stroke diagnosis?: No VTE Prior VTE?: No VTE Risk Level:: Medical - moderate - high VTE Device Contraindication: Treatment Not Indicated VTE Drug Contraindication: N/A - Med Ordered
[2024-10-25 07:36] LABS: Glucose, Whole Blood 95 mg/dL (60-115)
[2024-10-25 07:37] VITALS: BP 156/64; PULSE 60; RESP 18; TEMP 36.3; O2SAT 98
[2024-10-25] MEDS: Albuterol/Iprat 2.5/0.5MG 3 ML AMPUL.NEB INHALE ×2 (07:47→11:27)
[2024-10-25 07:50] VITALS: PULSE 65; RESP 18; O2SAT 95
[2024-10-25 08:41] LABS: Anion Gap 11 (12-20); Blood Urea Nitrogen 14 mg/dL (9-16); Calcium 10.4 mg/dL (8.4-10.2); Carbon Dioxide 36 mmol/L (22-29); Chloride 101 mmol/L (96-108); Creatinine Clr Calc Pharmacy 52.4; Estimated Glomerular Filt Rate > 60; Potassium 4.3 mmol/L (3.3-5.1); Sodium 144 mmol/L (135-145)
[2024-10-25 08:49] LABS: B Type Natriuretic Peptide 135 pg/mL (<100)
[2024-10-25] MEDS: dilTIAZem HCL CD 180 MG CAP.ER.24H PO (08:58)
[2024-10-25] MEDS: Potassium Chloride ER 10 MEQ TABLET.ER PO (08:58)
[2024-10-25] MEDS: PT OWN (Budesonide-Glycopyr-Formoterol [Breztri Aerosphere] 160-9-4.8 mc 2 EACH INHALE (08:59)
[2024-10-25] MEDS: buPROPion HCl XL 300 MG TAB.ER.24H PO (08:59)
[2024-10-25] MEDS: 0.9 % Sodium Chloride Flush 3 ML SYRINGE IVFLUSH (09:06)
--- NOTE | 2024-10-25 10:20 | P.DS_ITS ---
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 Attending physician on discharge: Marian Cates Discharging clinician: Marian Cates DS: Diagnosis Discharge Diagnosis (1) Acute exacerbation of CHF (congestive heart failure): Status: Acute DS: Summary Hospital Course Hospital Course: Hpi:84-year-old female with pertinent history of chronic hypoxemic respiratory failure due to COPD on baseline 3 L supplemental oxygen, mood disorder, history of PE and paroxysmal atrial flutter on Eliquis, gout, congestive heart failure with preserved ejection fraction who presents to the emergency department for evaluation of dyspnea. Patient states he has been having dyspnea which is worse with exertion and worse when lying flat. No cough reported. No fever or chills. She denies chest pain or palpitations. No lower extremity leg swelling. Patient states her symptoms have been progressive over the last few days and got worse on the day of presentation. She has been compliant with home medications. No abdominal pain, changes in urinary or bowel habits. In the emergency department, BNP found to be elevated and imaging concerning for pulmonary edema. Patient was given IV lasix in the ER. Hospital course: Patient was admitted for acute on chronic CHF-heart failure with preserved fraction: CT chest shows mild interstitial edema, pleural effusions, elevated BNP, patient was significantly short of breath especially with exertion: Patient was started on IV Lasix, renal function electrolytes monitored closely, echo was done Which showed:1. Normal LV ejection fraction 65- 70%2. Biatrial enlargement, right greater than left. 3. Mild aortic stenosis . 4. 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 Moderate to severe elevation of right ventricular systolic pressure .6. No pericardial effusion. With the above management patient significantly improved, in addition patient seen by cardiology: Recommended to continue home Lasix, patient is to follow-up with her own correctional case manager for question of mitral valve dysfunction. Leukocytosis likely reactive, resolved patient does not have any new symptoms. Asymptomatic currently. Chronic respiratory failure due to COPD:continue home oxygen. Generalized weak: Seen by PT- Patient will be going home with [facility] PT. Dilatation of esophagus on imaging. Patient without any symptoms currently. Continue to monitor denies any acute symptoms ,patient seems eating fine ,denies any gi symptoms , follow up with pcp - consider outpatient workup and management . plan: Continue Lasix, CHF education given.Monitor renal function electrolytes outpatient. Home oxygen evaluation pending If any new symptoms shortness of breath or chest pain or any new symptoms go to nearest emergency room for further evaluation. Above management discussed with the patient in detail length as well as her son- they both understand and in agreement with the above plan, time spent 45 minute. All questions answered. Staff was present during conversation. Time Attestation Total time managing care of this patient today: 45 mintues. Discharge Coordination Time (in mins): 45 min Quality: Safe Use of Opioids Does Pt have an Active Cancer Diagnosis on the Problem List?: No Quality: Stroke Does the patient have a stroke diagnosis?: No Physical Exam Exam: Exam: Appearance: Alert.? Oriented X3.resting comfortably. cvs: rrr, [id number] . res: air entry fair , no rales or wheezing abd: no rebound or guarding ,nt, bs present. ext pulses present , no cyanosis. neuro: axo3 , nonfocal. Vital Signs: Vital Signs: Last Vital Signs Temp 97.4 F 10/25/24 07:37 Pulse 65 10/25/24 07:50 Resp 18 10/25/24 07:50 BP 156/64 H 10/25/24 07:37 Pulse Ox 98 10/25/24 07:37 O2 Del Method Nasal Cannula 10/25/24 07:37 O2 Flow Rate 2 10/25/24 07:37 Oxygen Flow Rate 2 10/19/24 16:14 BMI result Body Mass Index 35.7 DS: Data Data Completed and Pending Completed studies during hospitalization [Text1]: Procedures Introduction of Remdesivir Anti-infective into Peripheral Vein, Percutaneous Approach, [employer] 5 (01/30/20) Transfusion of Nonautologous Frozen Plasma into Peripheral Vein, Percutaneous Approach (01/30/20) Labs on day of discharge: Laboratory Results - last 24 hr 10/24/24 10/24/24 10/25/24 16:22 19:04 07:10 Sodium Potassium Chloride Carbon Dioxide Anion Gap BUN Creatinine Estim Creat Clear Calc Estimated GFR POC Glucose 122 H 158 H 95 Random Glucose Calcium B-Natriuretic Peptide 10/25/24 07:59 Sodium 144 Potassium 4.3 Chloride 101 Carbon Dioxide 36 H Anion Gap 11 L BUN 14 Creatinine 0.79 Estim Creat Clear Calc 52.4 Estimated GFR > 60 POC Glucose Random Glucose 87 Calcium 10.4 H B-Natriuretic Peptide 135 H Imaging Chest x-ray: My impression: cxr: 1. Atelectasis and/or infiltrate and/or edema within the bilateral lower lungs. 2. Possible small bilateral pleural effusions. Ct chest: 1. Moderate bilateral pleural effusions. Mild interstitial edema. 2. There is dilatation of the esophagus which is distended with gas and fluid. This may be secondary to achalasia. Discharge Plan Discharge Anticipated Discharge Date/Time: 10/25/24 10:11 Patient Disposition: Home Health Service Discharge Diagnosis: chf Referrals: [facility] [Other] - 1 Week Miguel Morrison PA [Primary Care Provider, Internal Medicine] - 1 Week Discharge Medications: Continued diltiazem HCl [DILT-XR] 180 mg capsule,ext.rel 24h degradable 180 mg PO DAILY apixaban 5 mg tablet 5 mg PO BID potassium chloride 10 mEq capsule, extended release 10 meq PO BID allopurinol 100 mg tablet 100 mg PO DAILY omeprazole 20 mg capsule,delayed release(DR/EC) 20 mg PO DAILY@0630 rosuvastatin 20 mg tablet 20 mg PO BEDTIME bupropion HCl 300 mg tablet extended release 24 hr 300 mg PO DAILY duloxetine 60 mg capsule,delayed release(DR/EC) 60 mg PO DAILY bupropion HCl 150 mg tablet extended release 24 hr 150 mg PO DAILY@1700 furosemide 40 mg tablet 40 mg PO DAILY docusate sodium 50 mg Capsule 50 mg PO DAILY PRN (Reason: Constipation) ferrous sulfate 325 mg (65 mg iron) Tablet 325 mg PO Q48H albuterol sulfate 90 mcg/actuation Hfa Aerosol Inhaler 2 puff INHALATION Q6H PRN (Reason: Shortness Of Breath) cholecalciferol (vitamin D3) 50 mcg (2,000 unit) Tablet 50 mcg PO BEDTIME buspirone 7.5 mg tablet 7.5 mg PO BID colchicine 0.6 mg tablet 0.6 mg PO DAILY PRN (Reason: Gout) Breztri Aerosphere 160-9-4.8 mcg/actuation HFA aerosol inhaler 2 inh inhalation BID Multivitamin Women 50 Plus 8 mg iron-400 mcg-50 mcg Tablet 1 tab PO DAILY lisinopril 40 mg tablet 40 mg PO DAILY Discharge Orders: Discharge Order (Routine); Ordered 10/25/24 Ordered By: Marian Cates Diet: Advance to usual diet Activity on Discharge: As tolerated Stand Alone Forms: Patient Portal Discharge page Print Language: Togolese Other Ambulatory Orders: Basic Metabolic Panel (Routine) Timeframe: 1 Week Facility: [facility] - Location: Laboratory Ordered By: Marian Cates B Type Natriuretic Peptide (Routine) Timeframe: 1 Week Facility: [facility] - Location: Laboratory Ordered By: Marian Cates Care Plan Goals: chf -CHF education given-if gains weight 2 lb or more in a week-will need outpatient Lasix dosing assessment with PCP. Consider Follow-up with cardiology outpatient. Continue Lasix 40 mg daily Follow-up with PCP/Cardiology outpatient for question of prosthetic mitral valve dysfunction, most likely outpatient workup through her own correctional case manager. leucocytosis seems reactive - improved. Health Concerns: As above. Plan of Treatment: As above. Assessment: As above. Patient Instructions: Heart Failure (DC) Discharge Date/Time: 10/25/24 12:15
--- NOTE | 2024-10-25 10:34 | MHC.CM.PN ---
pt is dcd today w/[facility]
--- NOTE | 2024-10-25 11:20 | P.F2F_ITS ---
Service Date Service Date: 10/25/24 Encounter Date of encounter: 10/25/24 Encounter: chf ,copd Reasons for Services Signs and symptoms assessed: Shortness of breaths or chest pain or any new complaints Reason for intermediate: CV/CP assess and/or care, medication management, medication treatment and teach disease management Reason for physical therapy: home safety and mobility, therapeutic exercises, restore joint function, gait/transfer training, assess need for DME, ADL training, energy conservation and other MD Overseeing Care: Miguel Morrison Homebound: Leaving the home is medically contraindicated at this time without the asist of a device and/or another person due th the listed conditions above and below. Reason homebound: weakness related to hospital stay Homebound supporting statement: Patient is generalised weak post hospitlisation and need help with going to appointments and labs draws as well as PT. Certification: Based on the above findings, I certify that this patient is confined to the home and needs intermittent intermediate care, physical therapy and/or speech therapy, or continues to need occupational therapy. The patient is under my care, and I have initiated the establishment of the plan of care. The patient will be followed by a physician who will periodically review the plan of care. Time Spent With Patient Time: Total time managing care of this patient today ____ minutes.
[2024-10-25 11:28] LABS: Glucose, Whole Blood 115 mg/dL (60-115)
[2024-10-25 11:50] VITALS: BP 128/58; PULSE 71; RESP 18; TEMP 36.9; O2SAT 93
[2024-10-25 11:55] VITALS: PULSE 75; RESP 18; O2SAT 100
== END 2024-10-25 12:15 | disposition home health service (06) | DRG 291 ==
LOC: HO.ED 19:00 → HO.EDOVER 19:29 → HO.S3 10-20 16:00
PROVIDERS: Admitting Provider Student in an Organized Health Care Education/Training Program; Emergency Provider Emergency Medicine; PCP Physician Assistant Medical; Visit Provider Internal Medicine
DX: I11.0 Hypertensive heart disease with heart failure (principal); I50.33 Acute on chronic diastolic (congestive) heart failure; J18.9 Pneumonia, unspecified organism; J44.0 Chronic obstructive pulmonary disease with (acute) lower respiratory infection; J96.11 Chronic respiratory failure with hypoxia; I48.92 Unspecified atrial flutter; T82.857A Stenosis of other cardiac prosthetic devices, implants and grafts, initial encounter; F39 Unspecified mood [affective] disorder; Y71.2 Prosthetic and other implants, materials and accessory cardiovascular devices associated with adverse incidents; I35.0 Nonrheumatic aortic (valve) stenosis; Z20.822 Contact with and (suspected) exposure to COVID-19; Z99.81 Dependence on supplemental oxygen; Z79.01 Long term (current) use of anticoagulants; Z79.899 Other long term (current) drug therapy
CPT/HCPCS: 36415; 71045; 71250; 80048; 81001; 82947; 83036; 83605; 83880; 84484; 85025; 87040; 87637; 92610; 93005; 93306; 94640; 97162; 97530; 99285; J0696; J1938; J2919; Q9957

== ENCOUNTER → 2024-10-19 16:30 | Outpatient (BNV) | payer MEDICARE, SELFPAY | PROVIDERS: Admitting Provider Student in an Organized Health Care Education/Training Program; Emergency Provider Emergency Medicine; PCP Physician Assistant Medical; Visit Provider Internal Medicine Cardiovascular Disease | DX: R94.31 Abnormal electrocardiogram [ECG] [EKG] (principal); R07.89 Other chest pain | CPT/HCPCS: 93010 ==

== ENCOUNTER → 2024-10-19 16:43 | Outpatient (BNV) | payer MEDICARE, SELFPAY | PROVIDERS: Emergency Provider Emergency Medicine; PCP Physician Assistant Medical; Visit Provider Radiology Diagnostic Radiology | DX: J90 Pleural effusion, not elsewhere classified (principal); R06.02 Shortness of breath | CPT/HCPCS: 71045; 71250 ==

== ENCOUNTER 2024-10-19 19:06 | Outpatient (BNV) | payer MEDICARE, SELFPAY | END 2024-10-20 07:00 | PROVIDERS: Admitting Provider Student in an Organized Health Care Education/Training Program; Emergency Provider Emergency Medicine; PCP Physician Assistant Medical; Visit Provider Internal Medicine Cardiovascular Disease | DX: I51.7 Cardiomegaly (principal) | CPT/HCPCS: 93306 ==

== ENCOUNTER → 2024-10-19 19:06 | Outpatient (BNV) | payer MEDICARE, SELFPAY | PROVIDERS: Admitting Provider Student in an Organized Health Care Education/Training Program; Emergency Provider Emergency Medicine; PCP Physician Assistant Medical; Visit Provider Student in an Organized Health Care Education/Training Program | DX: I50.9 Heart failure, unspecified (principal) | CPT/HCPCS: 99223; 99231; 99232 ==

== ENCOUNTER → 2024-10-19 19:06 | Outpatient (BNV) | payer MEDICARE, SELFPAY | PROVIDERS: Admitting Provider Student in an Organized Health Care Education/Training Program; Emergency Provider Emergency Medicine; PCP Physician Assistant Medical; Visit Provider Internal Medicine Cardiovascular Disease | DX: I50.9 Heart failure, unspecified (principal); Z95.3 Presence of xenogenic heart valve; I48.92 Unspecified atrial flutter | CPT/HCPCS: 99233 ==

== ENCOUNTER 2024-11-01 11:41 | Outpatient (REF) | payer MEDICARE, SELFPAY ==
--- OUTSIDE RECORDS SUMMARY | 2024-10-26 17:30 | XMS_ITS | Encounter Summary ---
Author Organization [facility] Address [address] [place] [address] Care Team Providers Care Blintze Roller Name Role Phone Miguel Morrison Primary Care Provider [phone] Reason for Referral * Imaging (Routine) - Closed Specialty Diagnoses / Procedures Referred By Contgloria t Referred To Contact Radiology Diagnoses Low back pain without sciatica, unspecified back pain laterality, unspecified chronicity Dysuria Stage 3 chronic kidney disease, unspecified whether stage 3a or 3b CKD ([facility] V24, [facility] V28) COPD, moderate ([facility] V24, [facility] V28) Depression, unspecified depression type Diabetes mellitus type 2 with neurological manifestations ([facility] V24, [facility] V28) Hyperlipidemia, unspecified hyperlipidemia type Gout, unspecified cause, unspecified chronicity, unspecified site Primary hypertension Hyperparathyroidism ([facility] V24) Microalbuminuria Obstructive sleep apnea Paroxysmal atrial fibrillation ([facility] V24, [facility] V28) Pulmonary hypertension ([facility] V24, [facility] V28) Procedures MR Lumbar Spine wo Contrast Miguel Morrison PA [address] [place], [place] Phone: tel: fax: [facility] [address] [place] [address] Phone: tel:[phone] Referral ID Status Reason Start Date Expiration Date Visits Re quested Visits Authorized [id number] Closed 10/14/2024 10/14/2025 1 1 Reason for Visit * Imaging (Routine) - Closed Specialty Diagnoses / Procedures Referred By Contgloria t Referred To Contact Radiology Diagnoses Low back pain without sciatica, unspecified back pain laterality, unspecified chronicity Dysuria Stage 3 chronic kidney disease, unspecified whether stage 3a or 3b CKD ([facility] V24, [facility] V28) COPD, moderate ([facility] V24, [facility] V28) Depression, unspecified depression type Diabetes mellitus type 2 with neurological manifestations ([facility] V24, [facility] V28) Hyperlipidemia, unspecified hyperlipidemia type Gout, unspecified cause, unspecified chronicity, unspecified site Primary hypertension Hyperparathyroidism ([facility] V24) Microalbuminuria Obstructive sleep apnea Paroxysmal atrial fibrillation ([facility] V24, [facility] V28) Pulmonary hypertension ([facility] V24, [facility] V28) Procedures MR Lumbar Spine wo Contrast Miguel Morrison PA [address] [place] [address] Phone: tel: fax: [address] Phone: tel: Referral ID Status Reason Start Date Expiration Date Visits Re quested Visits Authorized [id number] Closed 10/14/2024 10/14/2025 1 1 Encounter Details Date Type Department Care Team (Latest Contact Info) Description 10/26/2024 5:30 PM EDT - 10/26/2024 11:59 PM EDT Hospital Encounter Radiology Department - [address] [phone] Low back pain without sciatica, unspecified back pain laterality, unspecified chronicity; Dysuria; Stage 3 chronic kidney disease, unspecified whether stage 3a or 3b CKD ([facility] V24, [facility] V28); COPD, moderate ([facility] V24, [facility] V28); Depression, unspecified depression type; Diabetes mellitus type 2 with neurological manifestations ([facility] V24, [facility] V28); Hyperlipidemia, unspecified hyperlipidemia type; Gout, unspecified cause, unspecified chronicity, unspecified site; Primary hypertension; Hyperparathyroidism ([facility] V24); Microalbuminuria; Obstructive sleep apnea; Paroxysmal atrial fibrillation ([facility] V24, [facility] V28); Pulmonary hypertension ([facility] V24, [facility] V28) Discharge Disposition: Home or Self Care Social History Tobacco Use Types Packs/Day Years [...] Record ed Within the last 3 months, joslyn mccartney many times did you visit the emergency [...] your loved ones. For example, early childhood specialist or elderly care for an older adult? [...] is your living situation? 0 03/09/2024 Comments No Sex and Gender Information Value Date Recorded Sex Assigned at Not on file Legal Sex Female 9:51 PM EST Gender Identity Not on file Sexual Orientation Not on file documented as of this encounter Medications at Time of Discharge acetaminophen (TYLENOL) 500 mg tablet Take by mouth. albuterol HFA (PROAIR HFA ; PROVENTIL HFA ; VENTOLIN HFA) 90 mcg/actuation inhaler Inhale 2 puffs by mouth. 10/02/2023 allopurinoL (ZYLOPRIM) 100 mg tablet TAKE 1 TABLET DAILY 90 tablet 3 09/01/2024 Autolet lancing device by Not Applicable route. 02/06/2005 bisacodyL (DULCOLAX) 5 mg EC tablet Take 2 tablets by mouth right before beginning bowel prep. See instructions provided by the office 2 tablet 10/12/2024 blood sugar diagnostic (FreeStyle Lite Strips) test strip Use to check blood sugar daily 100 each 12 06/20/2024 blood-glucose meter kit 1 each if needed (use to check blood sugar daily). 1 each 06/20/2024 blood-glucose meter misc 1 Lancet by extracorporeal route 1 (one) time each day. 12/05/2015 budesonide-glyc opyr-formoterol (Breztri Aerosphere) 160-9-4.8 mcg/actuation HFA aerosol inhaler inhaler Inhale 2 puffs by mouth 1 (one) time each day. 1 each 1 03/28/2024 buPROPion XL (WELLBUTRIN XL) 300 mg 24 hr tablet Take 1 tablet (300 mg total) by mouth 1 (one) time each day in the morning. 90 tablet 1 03/28/2024 busPIRone (BUSPAR) 7.5 mg tablet Take 1 tablet (7.5 mg total) by mouth 2 (two) times a day. 180 each 3 07/13/2024 colchicine (COLCRYS) 0.6 mg tablet TAKE 1 TABLET BY MOUTH DAILY NEEDED (FOR GOUT FLARE UP) 90 tablet 1 03/28/2024 dilTIAZem CD (CARDIZEM CD) 180 mg 24 hr capsule Take 1 capsule (180 mg total) by mouth 1 (one) time each day. 90 each 2 04/08/2024 DULoxetine (CYMBALTA) [address] capsule Take 1 capsule (60 mg total) by mouth 1 (one) time each day. 90 capsule 1 03/28/2024 Eliquis 5 mg tablet TAKE 1 TABLET TWICE A DAY 90 tablet 7 09/26/2024 ferrous sulfate (Slow Fe) 137 mg (45 mg iron) tablet extended release Take 1 tablet by mouth 1 (one) time each day. 90 tablet 3 07/13/2024 freestyle (FreeStyle Lancets) 28 gauge lancets Use to check blood sugar daily 100 each 12 06/20/2024 furosemide (LASIX) 40 mg tablet TAKE 1 TABLET DAILY 30 tablet 11 09/26/2024 glucose blood test strip Test blood sugar 3 times daily 12/05/2015 lisinopril (PRINIVIL,ZESTR IL) 40 mg tablet TAKE 1 TABLET DAILY 90 tablet 3 09/01/2024 omeprazole (PriLOSEC) [address] capsule TAKE 1 CAPSULE TWICE A DAY 90 capsule 7 09/26/2024 ONETOUCH DELICA LANCETS MISC Test blood sugar 3 times daily 12/05/2015 Oxygen Therapy (O2) gas Administer 2-3 L into affected nostril(s). polyethylene glycol (Golytely) 236-22.74-6.74 -5.86 gram solution Take 4L by mouth once for one dose. May substitue any PEG. Starting at 2PM the day before your procedure drink 1 8oz glasses at your own pace until you complete half of the gallon. Finish 2nd half of the gallon at 8PM. 4000 mL 10/12/2024 potassium chloride (MICRO-K) 10 mEq CR capsule Take 2 capsules (20 mEq total) by mouth 1 (one) time each day. 180 capsule 3 08/02/2024 rosuvastatin (CRESTOR) 20 mg tablet Take 1 tablet (20 mg total) by mouth 1 (one) time each day. 90 tablet 3 03/28/2024 documented as of this encounter Discharge Disposition Disposition Code Departure Means Destination Home or Self Care documented in this encounter Plan of Treatment Upcoming Encounters Date Type Department Care Team (Late st Contact Info) Description 11/29/2024 8:10 AM EDT Office Visit [facility] [address] [facility] [address] [place] [phone] Shari Guerrero NP [address] [place] [address] [address] [place] [address] 12/27/2024 2:15 PM EDT Office Visit Orthopedic Surgery - [place] [address] [phone] Manolo Trammell DPM [address] [phone] 12/30/2024 1:30 PM EDT Office Visit [facility] - [address] [phone] Miguel Morrison PA [address] [place], [place] 01/02/2025 8:00 AM EST Appointment [facility] Endoscopy [address] [place] [phone] Rylan Castillo DO [address] [place], [place] 01/30/2025 9:45 AM EST Office Visit Pulmonolgy [facility] 175 [facility] [address] [place] [phone] Jose Guillen MD [address] [place] [address] 08/10/2025 1:00 PM EDT Office Visit Nephrology [address] [phone] Karthik Marroquin MD [address] [facility] [address] [place] [phone] documented as of this encounter Procedures Procedure Name Priority Date/Time Associated Diagnosis Comments MR LUMBAR SPINE WO CONTRAST Routine 10/26/2024 6:22 PM EDT Low back pain without sciatica, unspecified back pain laterality, unspecified chronicity Dysuria Stage 3 chronic kidney disease, unspecified whether stage 3a or 3b CKD ([facility] V24, [facility] V28) COPD, moderate ([facility] V24, [facility] V28) Depression, unspecified depression type Diabetes mellitus type 2 with neurological manifestations ([facility] V24, [facility] V28) Hyperlipidemia, unspecified hyperlipidemia type Gout, unspecified cause, unspecified chronicity, unspecified site Primary hypertension Hyperparathyroidism ([facility] V24) Microalbuminuria Obstructive sleep apnea Paroxysmal atrial fibrillation ([facility] V24, [facility] V28[facility] Pulmonary hypertension ([facility] V24, [facility] V28) documented in this encounter Results * MR Lumbar Spine wo Contrast (10/26/2024 6:22 PM EDT) Anatomical Region Laterality Modality L-spine, Spine Magnetic Resonan ce 10/27/2024 9:06 AM EDT Impressions 10/27/2024 5:39 PM EDT Multilevel central spinal canal stenosis, most severe at L3-4 and L4-5. Compression left T10 nerve root, left T11 nerve root, right L3 nerve root and right L4 nerve root. Multilevel bony and discogenic degenerative changes as described. -------- FINAL REPORT -------- Dictated By: Kathia Almanzar Dictated Date: 10/27/2024 09:06 ET Assigned Physician: Kathia Almanzar Reviewed and Electronically Signed By: Kathia Almanzar Signed Date: 10/27/2024 17:39 ET Workstation ID: [id number] Transcribed By: Self Edit Transcribed Date: 10/27/2024 09:13 ET Narrative 10/27/2024 5:39 PM EDT MR LUMBAR SPINE WO CONTRAST MR OF THE LUMBAR SPINE WITHOUT CONTRAST HISTORY: Lumbar radiculopathy. Technique: MR of the lumber spine was performed without contrast utilizing the standard departmental protocol. COMPARISON: Lumbar spine 10/14/2024. FINDINGS: Detail somewhat limited by motion. Conus medullaris terminates at the [L1-2] level, and demonstrates normal signal. There is clumping of the nerve roots in the canal distal to the conus medullaris.. There is rotatory levoscoliosis of the lumbar spine. There is slight anterolisthesis of L4 on L5. Vertebral body heights are normal. Marrow signal is normal. At T10-T11: There is diffuse disc bulging with bilateral paracentral disc protrusions and endplate osteophytes. There is severe left neural foraminal narrowing with compression of the left T10 nerve root. There is moderate to severe right neural foraminal narrowing. There is moderate moderate central spinal canal stenosis. At T11-T12: There is diffuse disc bulging with bilateral paracentral disc protrusions and endplate osteophytes. There is severe left neural foramen with compression of the left T11 nerve root. There is moderate severe right neural foraminal narrowing. Ligamentous bulging and facet hypertrophy. There is severe central canal stenosis. At T12-L1, diffuse disc bulging, endplate spurring, facet hypertrophy, and ligamentous bulging. There is mild left neural foraminal narrowing and moderate right neural foraminal narrowing. No central canal stenosis. At L1-L2, there is disc space narrowing. There is diffuse disc bulging with tiny central disc herniation extending slightly caudal to the disc space. There is endplate spurring, ligamentous hypertrophy and facet hypertrophy. There is severe right neural foraminal narrowing and moderate left neural foraminal narrowing. Mild central spinal canal stenosis. At L2-L3, there is disc space narrowing. There is diffuse disc bulging, endplate spurring, ligamentous bulging, moderate facet hypertrophy, mild to moderate right neural foraminal narrowing, mild left neural foraminal narrowing and mild central spinal canal stenosis. At L3-L4, there is disc space narrowing. There is diffuse disc bulging, endplate spurring, ligamentous bulging and severe facet hypertrophy. There is severe right neural foraminal narrowing with compression of the exiting right L3 nerve root. There is moderate left neural foraminal narrowing. There is severe central spinal canal stenosis with obliteration of the CSF at this level. At L4-L5, there is slight anterolisthesis of L4 on L5. There is diffuse disc bulging, endplate spurring, ligamentous bulging and severe facet hypertrophy. There is moderate to severe bilateral neural foraminal narrowing with compression of the right elbow for nerve root and effacement of the left L5 nerve root. There is severe central spinal canal stenosis. At L5-S1, there is disc space narrowing. There is mild disc bulging and severe left lateral endplate spurring. There is mild right neural foraminal narrowing and moderate to severe left neural foraminal narrowing. No central spinal canal stenosis. There is mild right facet hypertrophy and moderate left facet hypertrophy. There is left lateral recess narrowing. Procedure Note Kathia Almanzar MD - 10/27/2024 MR LUMBAR SPINE WO CONTRAST MR OF THE LUMBAR SPINE WITHOUT CONTRAST HISTORY: Lumbar radiculopathy. Technique: MR of the lumber spine was performed without contrast utilizingthe standard departmental protocol. COMPARISON: Lumbar spine 10/14/2024. FINDINGS: Detail somewhat limited by motion. Conus medullaris terminatesat the [L1-2] level, and demonstrates normal signal. There is clumping ofthe nerve roots in the canal distal to the conus medullaris.. There isrotatory levoscoliosis of the lumbar spine. There is slightanterolisthesis of L4 on L5. Vertebral body heights are normal. Marrowsignal is normal. At T10-T11: There is diffuse disc bulging with bilateral paracentral discprotrusions and endplate osteophytes. There is severe left neuralforaminal narrowing with compression of the left T10 nerve root. There ismoderate to severe right neural foraminal narrowing. There is moderatemoderate central spinal canal stenosis. At T11-T12: There is diffuse disc bulging with bilateral paracentral discprotrusions and endplate osteophytes. There is severe left neural foramenwith compression of the left T11 nerve root. There is moderate severeright neural foraminal narrowing. Ligamentous bulging and facethypertrophy. There is severe central canal stenosis. At T12-L1, diffuse disc bulging, endplate spurring, facet hypertrophy, andligamentous bulging. There is mild left neural foraminal narrowing andmoderate right neural foraminal narrowing. No central canal stenosis. At L1-L2, there is disc space narrowing. There is diffuse disc bulgingwith tiny central disc herniation extending slightly caudal to the discspace. There is endplate spurring, ligamentous hypertrophy and facethypertrophy. There is severe right neural foraminal narrowing and moderateleft neural foraminal narrowing. Mild central spinal canal stenosis. At L2-L3, there is disc space narrowing. There is diffuse disc bulging,endplate spurring, ligamentous bulging, moderate facet hypertrophy, mildto moderate right neural foraminal narrowing, mild left neural foraminalnarrowing and mild central spinal canal stenosis. At L3-L4, there is disc space narrowing. There is diffuse disc bulging,endplate spurring, ligamentous bulging and severe facet hypertrophy. Thereis severe right neural foraminal narrowing with compression of the exitingright L3 nerve root. There is moderate left neural foraminal narrowing.There is severe central spinal canal stenosis with obliteration of the CSFat this level. At L4-L5, there is slight anterolisthesis of L4 on L5. There is diffusedisc bulging, endplate spurring, ligamentous bulging and severe facethypertrophy. There is moderate to severe bilateral neural foraminalnarrowing with compression of the right elbow for nerve root andeffacement of the left L5 nerve root. There is severe central spinal canalstenosis. At L5-S1, there is disc space narrowing. There is mild disc bulging andsevere left lateral endplate spurring. There is mild right neuralforaminal narrowing and moderate to severe left neural foraminalnarrowing. No central spinal canal stenosis. There is mild right facethypertrophy and moderate left facet hypertrophy. There is left lateralrecess narrowing. IMPRESSION: Multilevel central spinal canal stenosis, most severe at L3-4 and L4-5. Compression left T10 nerve root, left T11 nerve root, right L3 nerve rootand right L4 nerve root. Multilevel bony and discogenic degenerative changes as described. -------- FINAL REPORT -------- Dictated By: Kathia Almanzar Dictated Date: 10/27/2024 09:06 ET Assigned Physician: Kathia Almanzar Reviewed and Electronically Signed By: Kathia Almanzar Signed Date: 10/27/2024 17:39 ET Workstation ID: [id number] Transcribed By: Self Edit Transcribed Date: 10/27/2024 09:13 ET Miguel ARCEO MRI PROCEDURES Final Result documented in this encounter Visit Diagnoses Diagnosis Low back pain without sciatica, unspecified back pain laterality, unspecified chronicity Dysuria Stage 3 chronic kidney disease, unspecified whether stage 3a or 3b CKD ([facility] V24, [facility] V28) COPD, moderate ([facility] V24, [facility] V28) Depression, unspecified depression type Diabetes mellitus type 2 with neurological manifestations ([facility] V24, [facility] V28) Hyperlipidemia, unspecified hyperlipidemia type Gout, unspecified cause, unspecified chronicity, unspecified site Primary hypertension Unspecified essential hypertension Hyperparathyroidism ([facility] V24) Hyperparathyroidism, unspecified Microalbuminuria Proteinuria Obstructive sleep apnea Obstructive sleep apnea (adult) (pediatric) Paroxysmal atrial fibrillation ([facility] V24, [facility] V28) Atrial fibrillation Pulmonary hypertension ([facility] V24, [facility] V28) Other chronic pulmonary heart diseases documented in this encounter Additional Health Concerns Assessment Noted Time PHQ-9 Depression Total Score: 0 03/09/19 25 8:56 AM EST documented as of this encounter Care Teams Blintze Roller Relationship Specialty Start Date End Date Miguel Morrison PA [address] [place] [address] PCP - General Internal Medicine 02/16/20 documented as of this encounter
--- OUTSIDE RECORDS SUMMARY | 2024-11-01 13:15 | XMS_ITS | Encounter Summary ---
Author Organization [facility] Address [address] [place] [address] Care Team Providers Care Egg Tester Name Role Phone Miguel Morrison Primary Care Provider [phone] Reason for Referral * Imaging (Routine) - Authorized Specialty Diagnoses / Procedures Referred By Contac t Referred To Contact Cardiology Diagnoses Nonrheumatic mitral valve stenosis SOB (shortness of breath) S/P mitral valve replacement Procedures Transthoracic echocardiogram (TTE) complete with PRN contrast, bubble, strain, and 3D order panel NH TTE W 2D IMAGE COMPLETE W DOPPLER ECHO & COLOR FLOW DOPPLER ECHO NH MARIA ANTONIA 2D COMPLETE W/CONTRAST OR W & WO CONTRAST WITH DOPPLER Venancio Dobbs MD [address] [place] [address] Dr Ford [address] [place] [phone] [facility] Referral ID Status Reason Start Date Expiration Date V isits Requested Visits Authorized [id number] Authorized 10/26/2024 10/26/2025 1 1 Reason for Visit * Reason Onset Date Comments valve issue 10/21/2024 Encounter Details Date Type Department Care Team (Late st Contact Info) Description 10/21/2024 Telephone [facility] - [address] [place] [address] Venancio Dobbs MD [address] [place] [address] [place] [address] Social History Tobacco Use Types Packs/Day Years [...] care for your loved ones. For example, children's minister or elderly care for an older adult? [...] as of this encounter Progress Notes * Lorrie Avalos RN - 10/28/2024 1:12 PM EDT Poke with patient and relayed Dr. Dobbs stated she does not need to repeat. * Lorrie Avalos RN - 10/28/2024 10:38 AM EDT Regarding task below, was the echo done at [facility] acceptable or do you feel she needs echo done that was cancelled here. Just want to check with provider before calling patient/family. * Kayla Grover MA - 10/28/2024 10:24 AM EDT No if the echo is already done we can not bill the insurance for another one. * Lorrie Avalos RN - 10/26/2024 3:22 PM EDT Please see task below. Echo done at [facility] this month scanned in. Was scheduled for echo here. It was cancelled because she had one done at [facility]. Per task D in law asking if this needed to be repeated. * Carey Donnelly - 10/26/2024 2:26 PM EDT Spoke with the patients daughter in law and scheduled for the next available opening on 11/29/24 with Shari Guerrero. They would like to clarify if a repeat echo is needed. The patient came in this morning and was turned away because she had one done at [place]. Please call them back at [phone]. * Alexandra Mosquera RN - 10/26/2024 9:06 AM EDT ACCESS: Pt went to [facility] for SOB chest pain, records are in [employer] Pt needs hospitalfollow up son is requesting HFU with Dr Dobbs Thank you Son Robert informed he will be hearing from ACCESS Pt has been scheduled today for ECHO * Venancio Dobbs MD - 10/26/2024 9:00 AM EDTAddended by: VENANCIO DOBBS on: 10/26/2024 09:00 AM Modules accepted: Orders * Alexandra Mosquera RN - 10/26/2024 8:28 AM EDT Records from [facility] are in [employer] ER NOTE, CT CHEST and XRAY * Yulissa Suárez - 10/24/2024 10:35 AM EDT Patients son Robert states Dr. Dennis spoke to . He states he should be getting a call back regarding his mom at [phone] * Renetta Fitzgerald - 10/21/2024 3:01 PM EDT Notes requested from [facility] . * Carey Donnelly - 10/21/2024 2:31 PM EDT Please request records from [facility], thank you. * Екатерина Leavitt MA - 10/21/2024 2:24 PM EDT Called patient's son, he stated this was not a provider to provider call, the patient is already home.The patient was in the emergency room at [facility] the other day because she was unable to breathe. During the workup one of their doctors noticed that the mitral valve that was replaced is now narrowing. The provider at [facility] advised them to contact her primary vice president sales and marketing office to getan appointment to go over options on what to do. The provider wants the patient to see Campbell Dobbs asa follow up to go over this, the provider is also sending the notes over from her visit in the ER. Please contact the son Robert at [phone] as soon as possible to schedule an appointment, * Yulissa Suárez - 10/21/2024 1:37 PM EDT Patients harish Jones states patient is admitted to [facility]. The [employer] states the valve she has is narrowing and she needs Dr. Dobbs to look at it. He was told to call and see what he can do. The doctor will be sending over the note as well. He would like a call back. documented in this encounter Plan of Treatment Upcoming Encounters Date Type Department Care Team (Late st Contact Info) Description 11/29/2024 8:10 AM EDT Office Visit [facility] - [address] [place] [address] Shari Guerrero NP [address] [place] [address] [place] [address] 12/27/2024 2:15 PM EDT Office Visit Orthopedic Surgery - [place] [address] [facility] 250 [place] [phone] Manolo Trammell DPM 175 [facility] 250 [place] [phone] 12/30/2024 1:30 PM EDT Office Visit Adult Medicine [facility] [address] [place] [address] Miguel Morrison PA [address] [place] [address] 01/02/2025 8:00 AM EST Appointment [facility] Endoscopy [address] [place] [phone] Rylan Castillo DO [address] [place] [address] 01/30/2025 9:45 AM EST Office Visit Pulmonolgy - [place] 175 [facility] 200 [place] [phone] Jose Guillen MD [address] [place] [address] 08/10/2025 1:00 PM EDT Office Visit Nephrology [facility] [address] [place], [place] [phone] Karthik Marroquin MD [address] [facility] [address] [place] [phone] Scheduled Orders Name Type Priority Associated Diagnoses Orde r Schedule Transthoracic echocardiogram (TTE) complete with PRN contrast, bubble, strain, and 3D order panel Echocardiography Routine Nonrheumatic mitral valve stenosis SOB (shortness of breath) S/P mitral valve replacement Expected: 10/26/2024, Expires: 10/26/2025 documented as of this encounter Visit Diagnoses Diagnosis Nonrheumatic mitral valve stenosis- Primary SOB (shortness of breath) Shortness of breath S/P mitral valve replacement Heart valve replaced by other means documented in this encounter Additional Health Concerns Assessment Noted Time PHQ-9 Depression Total Score: 0 03/09/19 8:56 AM EST documented as of this encounter Care Teams Egg Tester Relationship Specialty Start Date End Date Miguel Morrison PA [address] [place] [address] PCP - General Internal Medicine 02/16/20 documented as of this encounter
--- OUTSIDE RECORDS SUMMARY | 2024-11-01 13:15 | XMS_ITS ---
Author Organization [facility] [address] [facility] Address [address] [place] [address] Phone Care Team Providers Care Supervisor [employer] Name Role Phone Miguel Morrison Primary Care Provider [phone] [phone] Chronic Care Management Status:Identified (Enrolling) Start date:10/26/2024 Enrollment reason:Referred by Care Team Case Team Name Relationship Phone Na Talbert RN Care Manager(Responsible Staff) Continued Care and Services Coordination
--- OUTSIDE RECORDS SUMMARY | 2024-11-01 13:15 | XMS_ITS | Encounter Summary ---
Author Organization [facility] Address [address] [place] [address] Care Team Providers Care Business Records Manager Name Role Phone Miguel Morrison Primary Care Provider [phone] [phone] Reason for Visit * Reason Onset Date Comments vna 10/28/2024 Encounter Details Date Type Department Care Team (Late st Contact Info) Description 10/28/2024 Telephone Adult Medicine [address] [phone] Miguel Morrison PA [address] [place] [phone] Social History Tobacco Use Types Packs/Day Years [...] for your loved ones. For example, child psychology teacher or elderly care for an older adult? [...] as of this encounter Progress Notes * Fazal Johnson LPN - 10/28/2024 1:05 PM EDT Please see message from [facility] need VO for PT care plan Please send response to nurse triage [facility] ok to wait * Yola Juan David - 10/28/2024 12:42 PM EDT [facility] CALL Which [facility] office is calling? Moustapha BUCK Full name of caller: Fredy The caller is An Occupational Therapist Is the caller at the patients home?: no Reason for call: Fredy calls in stating he will be doing ot with patient 1x a week for up to 9 weeks, doesn't need a call back unless the Dr disagrees with plan Does caller need an urgent call back? no Was CONTACT Telephone # obtained above?: yes Fax #: n/a documented in this encounter Plan of Treatment Upcoming Encounters Date Type Department Care Team (Late st Contact Info) Description 11/29/2024 8:10 AM EDT Office Visit [facility] - [facility] [address] [facility] 102 [place] [phone] Shari Guerrero, ANABELA [address] [place] [address] Dr Ford [address] [place] [address] 12/27/2024 2:15 PM EDT Office Visit Orthopedic Surgery - [place] [address] [phone] Manolo Trammell DPM [address] [phone] 12/30/2024 1:30 PM EDT Office Visit Adult Medicine [address] [address] Miguel Morrison PA [address] [place], [place] 01/02/2025 8:00 AM EST Appointment [facility] Endoscopy [address] [place] [phone] Rylan Castillo DO [address] [place] [address] 01/30/2025 9:45 AM EST Office Visit Pulmonolgy - [place] 175 [facility] 200 [place] [phone] Jose Guillen MD [address] [place] [address] 08/10/2025 1:00 PM EDT Office Visit Nephrology - [place] [address] [place] [address] Karthik Marroquin MD [address] [phone] documented as of this encounter Visit Diagnoses Not on filedocumented in this encounter Additional Health Concerns Assessment Noted Time PHQ-9 Depression Total Score: 0 03/09/19 25 8:56 AM EST documented as of this encounter Care Teams Business Records Manager Relationship Specialty Start Date End Date Miguel Morrison PA [address] [place] [address] PCP - General Internal Medicine 02/16/20 documented as of this encounter
--- OUTSIDE RECORDS SUMMARY | 2024-11-01 13:15 | XMS_ITS | Clinical Summary ---
Author Organization [facility] Address [address] [place] [address] Phone Care Team Providers Care Key Entry Operator Name Role Phone Miguel Morrison Primary Care Provider [phone] Allergies Active Allergy Reactions Criticality Noted Date Comments Fentanyl 08/15/2022 delerium Medications albuterol HFA (PROAIR HFA ; PROVENTIL HFA ; VENTOLIN HFA) 90 mcg/actuation inhaler Inhale 2 puffs by mouth. 4 Active acetaminophen (TYLENOL) 500 mg tablet Take by mouth. Activ e glucose blood test strip Test blood sugar 3 times daily 6 Active Oxygen Therapy (O2) gas Administer 2-3 L into affected nostril(s). Active blood-glucose meter misc 1 Lancet by extracorporeal route 1 (one) time each day. 6 Active Autolet lancing device by Not Applicable route. 5 Active ONETOUCH DELICA LANCETS MISC Test blood sugar 3 times daily 6 Active DULoxetine (CYMBALTA) [address] capsule Take 1 capsule (60 mg total) by mouth 1 (one) time each day. 90 capsule 1 5 Active colchicine (COLCRYS) 0.6 mg tablet TAKE 1 TABLET BY MOUTH DAILY NEEDED (FOR GOUT FLARE UP) 90 tablet 1 5 Active buPROPion XL (WELLBUTRIN XL) 300 mg 24 hr tablet Take 1 tablet (300 mg total) by mouth 1 (one) time each day in the morning. 90 tablet 1 5 Active rosuvastatin (CRESTOR) 20 mg tablet Take 1 tablet (20 mg total) by mouth 1 (one) time each day. 90 tablet 3 5 Active budesonide-gly copyr-formoter ol (Breztri Aerosphere) 160-9-4.8 mcg/actuation HFA aerosol inhaler inhaler Inhale 2 puffs by mouth 1 (one) time each day. 1 each 1 5 Active dilTIAZem CD (CARDIZEM CD) 180 mg 24 hr capsule Take 1 capsule (180 mg total) by mouth 1 (one) time each day. 90 each 2 5 Active freestyle (FreeStyle Lancets) 28 gauge lancets Use to check blood sugar daily 100 each 12 5 Active blood-glucose meter kit 1 each if needed (use to check blood sugar daily). 1 each 5 026 Active blood sugar diagnostic (FreeStyle Lite Strips) test strip Use to check blood sugar daily 100 each 12 5 Active busPIRone (BUSPAR) 7.5 mg tablet Take 1 tablet (7.5 mg total) by mouth 2 (two) times a day. 180 each 3 5 Active ferrous sulfate (Slow Fe) 137 mg (45 mg iron) tablet extended release Take 1 tablet by mouth 1 (one) time each day. 90 tablet 3 5 Active Additional Information Patient not taking.Reported on 10/14/2024 potassium chloride (MICRO-K) 10 mEq CR capsule Take 2 capsules (20 mEq total) by mouth 1 (one) time each day. 180 capsule 3 5 Active allopurinoL (ZYLOPRIM) 100 mg tablet TAKE 1 TABLET DAILY 90 tablet 3 5 Active lisinopril (PRINIVIL,ZEST RIL) 40 mg tablet TAKE 1 TABLET DAILY 90 tablet 3 5 Active furosemide (LASIX) 40 mg tablet TAKE 1 TABLET DAILY 30 tablet 11 5 Active Eliquis 5 mg tablet TAKE 1 TABLET TWICE A DAY 90 tablet 7 5 Active omeprazole (PriLOSEC) [address] capsule TAKE 1 CAPSULE TWICE A DAY 90 capsule 7 5 Active polyethylene glycol (Golytely) 236-22.74-6.74 -5.86 gram solution Take 4L by mouth once for one dose. May substitue any PEG. Starting at 2PM the day before your procedure drink 1 8oz glasses at your own pace until you complete half of the gallon. Finish 2nd half of the gallon at 8PM. 4000 mL 5 Active bisacodyL (DULCOLAX) 5 mg EC tablet Take 2 tablets by mouth right before beginning bowel prep. See instructions provided by the office 2 tablet 5 Active Active Problems Problem Noted Date Diagnosed Date Chronic cough 12/22/2023 SOB (shortness of breath) 12/22/2023 Pulmonary hypertension ([facility] V24, [facility] V28 ) 11/18/2023 Peripheral edema 11/17/2023 Overview (01/04/2024): Last Assessment & Plan: As above; may be related to heart failure but we will evaluate for venous insufficiency with bilateral venous duplex study. Secondary hypercoagulable state ([facility] V24) Typical atrial flutter ([facility] V24, [facility] V28 ) 08/21/2021 Arthritis of carpometacarpal (CMC) joint of [...] monitor with serial echocardiograms. Diastolic congestive heart f ailure ([facility] V24, [facility] V28) 05/18/2020 Overview (01/04/2024): Last Assessment & Plan: [...] pounds in one week. Paroxysmal atrial fibrillation ([facility] V24, CMS /HCC V28) 05/18/2020 Overview (01/04/2024): Unsuccessful MARIA ANTONIA guided [...] or for any head injury. Pulmonary embolism ([facility] V24, [facility] V28) Disease due to severe acute respiratory syndrome coronavirus 2 (SARS-CoV-2) 01/25/2020 Hyperparathyroidism ([facility] V24) 07/09/2017 Diabetes mellitus type 2 wit h neurological manifestations ([facility] V24, [facility] V28) 03/19/2015 Hyperlipidemia 02/24/2014 Overview (01/04/2024): Last Assessment [...] duration rather than intensity . COPD, moderate ([facility] V24, [facility] V28) 2010 Overview (01/04/2024): last PFTs 03/2009; on 2.5-3 L portable oxygen with activity Last Assessment & Plan: I have requested she use her inhalers as ordered, including rescue inhaler, to see if this improves breathing at all. Continue supplemental oxygen with exertion. She will continue to follow with pulmonology. CKD (chronic kidney disease) stage 3, GFR 30-59 ml/min ([facility] V24, [facility] V28) 05/06/2010 Overview (01/04/2024): Last Assessment & Plan: Continues to follow with Dr. Marroquin as recommended. Will update metabolic panel after the completion of increased furosemide dosing x [address] with Dr Marroquin moving forward as indicated. Microalbuminuria 05/06/2010 Status post hip replacement 05/06/2010 Obstructive sleep apnea 08/09/2009 Overview (01/04/2024): Has mask Used infrequently. [facility] Home Sleep Apnea Test: Date 10/23/2017; Wt 221#; BMI 42; VIK 7, AI 0.4; HI 6.4; Unclassified apneas 0; Obstructive apneas 3; Central apneas 0; Mixed apneas 0; hypopneas 50; average oxygen saturation 90% (lowest 80% with saturations <88% for 5% or more of study) [facility] Sleep Center Polysomnogram treatment study. [...] own machine; she is working with her acquisition marketing coordinator regarding this. Depression 09/07/2008 Gout 09/25/2005 Hypertension [...] Encounters Date Type Department Care Team Description 10/28/2024 Telephone Adult Medicine [address] [phone] Miguel Morrison, PA 10/26/2024 5:30 PM EDT - 10/26/2024 11:59 PM EDT Hospital Encounter Radiology Department [address] [phone] Low back pain without sciatica, unspecified back pain laterality, unspecified chronicity; Dysuria; Stage 3 chronic kidney disease, unspecified whether stage 3a or 3b CKD ([facility] V24, [facility] V28); COPD, moderate ([facility] V24, [facility] V28); Depression, unspecified depression type; Diabetes mellitus type 2 with neurological manifestations ([facility] V24, [facility] V28); Hyperlipidemia, unspecified hyperlipidemia type; Gout, unspecified cause, unspecified chronicity, unspecified site; Primary hypertension; Hyperparathyroidism ([facility] V24); Microalbuminuria; Obstructive sleep apnea; Paroxysmal atrial fibrillation ([facility] V24, [facility] V28); Pulmonary hypertension ([facility] V24, [facility] V28) Discharge Disposition: Home or Self Care 10/26/2024 Telephone Adult Medicine [address] [phone] Amina Newberry PharmD 10/26/2024 Telephone [facility] Cardiology [facility] [address] [phone] Emily Kevin 10/21/2024 Telephone [facility] Cardiology [facility] 101 300 [facility] [address] [place] [phone] Venancio Dobbs MD 10/21/2024 Telephone Gastroenterology [facility] 175 [facility] [address] [facility] [address] [place] [phone] JonathanRylan DO 10/14/2024 9:53 AM EDT - 10/14/2024 11:59 PM EDT Hospital Encounter [address] [phone] Low back pain without sciatica, unspecified back pain laterality, unspecified chronicity; Dysuria; Stage 3 chronic kidney disease, unspecified whether stage 3a or 3b CKD (CMS/HCC V24, CMS/HCC V28); COPD, moderate (CMS/HCC V24, CMS/HCC V28); Depression, unspecified depression type; Diabetes mellitus type 2 with neurological manifestations (CMS/HCC V24, CMS/HCC V28); Hyperlipidemia, unspecified hyperlipidemia type; Gout, unspecified cause, unspecified chronicity, unspecified site; Primary hypertension; Hyperparathyroidism (CMS/HCC V24); Microalbuminuria; Obstructive sleep apnea; Paroxysmal atrial fibrillation (CMS/HCC V24, CMS/HCC V28); Pulmonary hypertension (CMS/HCC V24, CMS/HCC V28) Discharge Disposition: Home or Self Care 10/14/2024 9:00 AM EDT Office Visit Adult Medicine [address] [phone] Miguel Morrison PA Diabetes mellitus type 2 with neurological manifestations (CMS/HCC V24, CMS/HCC V28) (Primary Dx); Low back pain without sciatica, unspecified back pain laterality, unspecified chronicity; Dysuria; Stage 3 chronic kidney disease, unspecified whether stage 3a or 3b CKD (CMS/HCC V24, CMS/HCC V28); COPD, moderate (CMS/HCC V24, CMS/HCC V28); Depression, unspecified depression type; Hyperlipidemia, unspecified hyperlipidemia type; Gout, unspecified cause, unspecified chronicity, unspecified site; Primary hypertension; Hyperparathyroidism (CMS/HCC V24); Microalbuminuria; Obstructive sleep apnea; Paroxysmal atrial fibrillation (CMS/HCC V24, CMS/HCC V28); Pulmonary hypertension (CMS/HCC V24, CMS/HCC V28) 09/28/2024 Telephone Gastroenterology - [place] 175 [facility] 175 [facility] [address] [place] [phone] ConwayPatti fabianOEMGA 09/13/2024 9:00 AM EDT Consult Gastroenterology - [place] [address] [facility] [address] [place] [address] Josee Andrade, ANABELA Iron deficiency anemia, unspecified iron deficiency anemia type (Primary Dx) 09/13/2024 Telephone Gastroenterology - [address] [facility] [address] [place] [address] Josee Andrade NP 08/11/2024 2:00 PM EDT Office Visit Nephrology [facility] [address] [place] [address] Karthik Marroquin MD Stage 3 chronic kidney disease, unspecified whether stage 3a or 3b CKD ([facility] V24, [facility] V28) (Primary Dx); Hypertension, unspecified type; Heart failure with preserved ejection fraction, unspecified HF chronicity ([facility] V24, [facility] V28); Iron deficiency from Last 3 Months Immunizations Name Administration [...] Date Site/Laterality Comments OTHER SURGICAL HISTORY PROCEDURE: [place] MADRID FACETECTOMY & FORAMOTOMY 1 VRT SGM [...] kidney disease) stage 3, GFR 30-59 ml/min ([facility] V24, [facility] V28) 05/06/2010 DX:CKD (chronic kidney disea se) stage 3, GFR 30-59 ml/min ([facility]) Congestive heart failure (CH F) ([facility] V24, [facility] V28) 07/07/2012 DX:Congestive heart failure (CHF) ([facility]); COMMENT: ECHO: 06/2012: LVEF 60-65%, no focal wall motion abnormalitis, moderate diastolic dysfunction with dilated right ventricle and increased LA pressure, mod-severe pulm htn and mode/severe MS. Depressive disorder 09/07/2008 DX:Depressiv e disorder Diabetes mellitus type 2 wit h neurological manifestations ([facility] V24, [facility] V28) 03/19/2015 DX:Diabetes mellitus type 2 with neurological manifestations (HCC) Gout 09/25/2005 DX:Gout Hyperlipidemia 02/24/2014 DX:Hyperlipidemi a Hypertension 03/13/2005 DX:Hypertension LAP-BAND surgery status 10/06/2016 DX:LAP-B AND surgery status Lumbosacral spondylosis with out myelopathy 02/05/2005 DX:Lumbosacral spondylosis w ithout myelopathy; COMMENT: SX x 2 Lung nodules 08/25/2012 DX:Lung nodules; COMMENT: Multiple low suspicion lung nodules. Previous smoker, will repeat in 1 year for follow up( due in 07/2013) Microalbuminuria 05/06/2010 DX:Microalbumin uria COPD, moderate ([facility] V24, [facility] V28) 05/29/2010 DX:COPD, moderate ([facility]); COM MENT: last PFTs 03/2009; on 2.5-3 L portable oxygen with activity Morbid obesity ([facility] V24, [facility] V28) 10/02/2010 DX:Morbid obesity ([facility]) Obstructive sleep apnea 08/09/2009 DX:Obstr uctive sleep apnea; COMMENT: Has mask Used infreeequently S/P mitral valve replacement 10/26/2012 DX: S/P mitral valve replacement; COMMENT: 09/2012 Dr. Garay Status post hip replacement 05/06/2010 DX:S tatus post hip replacement Type 2 diabetes mellitus wit h renal manifestations, controlled ([facility] V24, [facility] V28) 12/15/2012 DX:Type 2 diabetes mellitus with renal manifestations, controlled ([facility]) Family History Medical History Relation Name Comments [...] care for your loved ones. For example, childrens club attendant or elderly care for an older adult? [...] Sign Reading Time Taken Comments Blood Pressure 146/68 10/14/2024 9:12 AM EDT provider will recheck Pulse 71 10/14/2024 9:12 AM EDT Temperature 36.1 C (97 F) 10/14/2024 9:12 AM EDT Respiratory Rate 13 10/14/2024 9:12 AM EDT Oxygen Saturation 98% 10/14/2024 9:1 2 AM EDT Inhaled Oxygen Concentration - - Weight 77.1 kg (170 lb) 10/14/2024 9:12 AM EDT Height 152.4 cm (5') 10/14/2024 9:12 AM EDT Body Mass Index 33.2 10/14/2024 9:12 AM EDT Plan of Treatment Upcoming Encounters Date Type Department Care Team (Late st Contact Info) Description 11/29/2024 8:10 AM EDT Office Visit [facility] 102 300 [facility] [address] [place] [phone] Shari Guerrero NP [address] [place] [address] [address] [place] [address] 12/27/2024 2:15 PM EDT Office Visit Orthopedic Surgery - [place] [address] 175 [facility] [address] [place] [phone] Manolo Trammell DPM 175 [facility] [address] [place] [phone] 12/30/2024 1:30 PM EDT Office Visit [facility] - [place] [address] [place], [place] [phone] Miguel Morrison PA [address] [place], [place] 01/02/2025 8:00 AM EST Appointment [facility] [address] [place] [phone] Rylan Castillo DO [address] [place], [place] 01/30/2025 9:45 AM EST Office Visit Pulmonolgy - [place] 175 [facility] 200 [place] [phone] Jose Guillen MD [address] [place], [place] 08/10/2025 1:00 PM EDT Office Visit Nephrology - [place] [address] [place], [place] [phone] Karthik Marroquin MD [address] [facility] [address] [place] [address] Health Maintenance Due Date Last Done Comments Medicare Annual Wellness Visit 02/08/2022 Diabetes: Annual Foot Exam 10/08/2024 10/09/2023 COVID-19 Vaccine ( season) 2024 12/18/2021, 07/31/2021, 01/03/2021, Additional history exists Influenza Vaccine (#1) 2024 , 12/09/2021, 11/16/2019, Additional history exists Falls Risk Assessment 03/09/2025 03/09/2024 Social Influencers of Health Screening 03/09/2025 03/09/2024 Diabetes: Blood Sugar Control Test (HGBA1C) 04/14/2025 10/12/2024, 07/06/2024, 03/09/2024, Additional history exists Diabetes: Annual Retina Eye Exam 10/03/2025 10/03/2024, 10/08/2023 Diabetes: Annual Urine Albumin-Creatinine Ratio (uACR) 10/12/2025 10/12/2024, 07/06/2024, 03/09/2024, Additional history exists Diabetes: Annual GFR (Glomerular Filtration Rate) 10/12/2025 10/12/2024, 07/06/2024, 03/09/2024, Additional history exists Hypertension/CHF/CAD Annual BMP Blood Test 10/12/2025 10/12/2024, 07/06/2024, 03/09/2024, Additional history exists DTaP,Tdap,and Td Vaccines (4 - Td or Tdap) 09/15/2028 09/15/2018, 09/07/2008, 12/31/1997 Cholesterol Screening (Lipid Panel) 10/12/2029 10/12/2024, 07/06/2024, 03/09/2024, Additional history exists Osteoporosis Screening (Bone Density Screening) 08/12/2032 08/12/2017 Pneumococcal Vaccine: 50+ Years Completed 11/30/2017, 01/29/2015, 01/16/2014, Additional history exists Zoster Vaccines Completed 01/11/2019, 10/31, 09/13/2008 RSV Immunization Adult Patients Completed 12/06/2022 Depression Screening Completed 03/09/2024 HIB Vaccines Aged Out No longer eligi [...] age to complete this topic Meningococcal B Vaccine Aged Out No l onger eligible based on patient's age to complete [...] unspecified whether stage 3a or 3b CKD ([facility] V24, [facility] V28) COPD, moderate ([facility] V24, [facility] V28) Depression, unspecified depression type Diabetes mellitus type 2 with neurological manifestations ([facility] V24, [facility] V28) Hyperlipidemia, unspecified hyperlipidemia type Gout, unspecified cause, unspecified chronicity, unspecified site Primary hypertension Hyperparathyroidism ([facility] V24) Microalbuminuria Obstructive sleep apnea Paroxysmal atrial fibrillation ([facility] V24, [facility] V28) Pulmonary hypertension ([facility] V24, [facility] V28) EXTERNAL CT REPORT 10/19/2024 URINALYSIS WITH REFLEX MICROSCOPIC Routine 10/14/2024 10:32 AM EDT Low back pain without sciatica, unspecified back pain laterality, unspecified chronicity Dysuria Stage 3 chronic kidney disease, unspecified whether stage 3a or 3b CKD (CMS/HCC V24, [facility] V28) COPD, moderate (CMS/HCC V24, [facility] V28) Depression, unspecified depression type Diabetes mellitus type 2 with neurological manifestations ([facility] V24, [facility] V28) Hyperlipidemia, unspecified hyperlipidemia type Gout, unspecified cause, unspecified chronicity, unspecified site Primary hypertension Hyperparathyroidism ([facility] V[facility]) Microalbuminuria Obstructive sleep apnea Paroxysmal atrial fibrillation ([facility], [facility] V28) Pulmonary hypertension ([facility], [facility] V28) URINALYSIS WITH REFLEX MICROSCOPIC Routine 10/14/2024 10:32 AM EDT Low back pain without sciatica, unspecified back pain laterality, unspecified chronicity Dysuria Stage 3 chronic kidney disease, unspecified whether stage 3a or 3b CKD ([facility], [facility] V[facility]) COPD, moderate ([facility], [facility]) Depression, unspecified depression type Diabetes mellitus type 2 with neurological manifestations ([facility], [facility] V28) Hyperlipidemia, unspecified hyperlipidemia type Gout, unspecified cause, unspecified chronicity, unspecified site Primary hypertension Hyperparathyroidism ([facility]) Microalbuminuria Obstructive sleep apnea Paroxysmal atrial fibrillation ([facility], [facility]) Pulmonary hypertension ([facility], [facility] V28) XR LUMBAR SPINE 4+ VIEWS Routine 10/14/2024 10:08 AM EDT Low back pain without sciatica, unspecified back pain laterality, unspecified chronicity Dysuria Stage 3 chronic kidney disease, unspecified whether stage 3a or 3b CKD ([facility], [facility] V28) COPD, moderate ([facility], [facility] V28) Depression, unspecified depression type Diabetes mellitus type 2 with neurological manifestations ([facility], [facility] V28) Hyperlipidemia, unspecified hyperlipidemia type Gout, unspecified cause, unspecified chronicity, unspecified site Primary hypertension Hyperparathyroidism ([facility]) Microalbuminuria Obstructive sleep apnea Paroxysmal atrial fibrillation ([facility], [facility]) Pulmonary hypertension ([facility], [facility] V28) CBC WITH AUTO DIFFERENTIAL Routine 10/12/2024 10:35 AM EDT Stage 3 chronic kidney disease, unspecified whether stage 3a or 3b CKD ([facility], [facility]) COPD, moderate ([facility], [facility]) Depression, unspecified depression type Diabetes mellitus type 2 with neurological manifestations ([facility], [facility]) Gout, unspecified cause, unspecified chronicity, unspecified site Hyperparathyroidism ([facility]) Primary hypertension Hyperlipidemia, unspecified hyperlipidemia type Diastolic congestive heart failure, unspecified HF chronicity ([facility], [facility]) Pulmonary hypertension ([facility], [facility]) Paroxysmal atrial fibrillation ([facility], [facility]) Obstructive sleep apnea Typical atrial flutter ([facility], [facility]) URIC ACID Routine 10/12/2024 10:35 AM EDT Stage 3 chronic kidney disease, unspecified whether stage 3a or 3b CKD ([facility], [facility]) COPD, moderate ([facility], [facility]) Depression, unspecified depression type Diabetes mellitus type 2 with neurological manifestations ([facility], [facility]) Gout, unspecified cause, unspecified chronicity, unspecified site Hyperparathyroidism ([facility]) Primary hypertension Hyperlipidemia, unspecified hyperlipidemia type Diastolic congestive heart failure, unspecified HF chronicity ([facility], [facility]) Pulmonary hypertension ([facility], [facility] Paroxysmal atrial fibrillation ([facility], [facility]) Obstructive sleep apnea Typical atrial flutter ([facility], [facility]) PARATHYROID HORMONE INTACT Routine 10/12/2024 10:35 AM EDT Stage 3 chronic kidney disease, unspecified whether stage 3a or 3b CKD ([facility], [facility] V28) COPD, moderate ([facility], [facility] V28) Depression, unspecified depression type Diabetes mellitus type 2 with neurological manifestations ([facility], [facility] V28) Gout, unspecified cause, unspecified chronicity, unspecified site Hyperparathyroidism ([facility] V24) Primary hypertension Hyperlipidemia, unspecified hyperlipidemia type Diastolic congestive heart failure, unspecified HF chronicity (CMS/HCC V24, CMS/HCC V28) Pulmonary hypertension (CMS/HCC V24, CMS/HCC V28) Paroxysmal atrial fibrillation (CMS/HCC V24, CMS/HCC V28) Obstructive sleep apnea Typical atrial flutter (CMS/HCC V24, CMS/HCC V28) CBC AND DIFFERENTIAL Routine 10/12/2024 10:35 AM EDT Stage 3 chronic kidney disease, unspecified whether stage 3a or 3b CKD (CMS/HCC V24, CMS/HCC V28) COPD, moderate (CMS/HCC V24, CMS/HCC V28) Depression, unspecified depression type Diabetes mellitus type 2 with neurological manifestations (CMS/HCC V24, CMS/HCC V28) Gout, unspecified cause, unspecified chronicity, unspecified site Hyperparathyroidism ([facility]/HCC V24) Primary hypertension Hyperlipidemia, unspecified hyperlipidemia type Diastolic congestive heart failure, unspecified HF chronicity (CMS/HCC V24, CMS/HCC V28) Pulmonary hypertension (CMS/HCC V24, CMS/HCC V28) Paroxysmal atrial fibrillation (CMS/HCC V24, CMS/HCC V28) Obstructive sleep apnea Typical atrial flutter (CMS/HCC V24, CMS/HCC V28) IRON AND TIBC Routine 10/12/2024 10:35 AM EDT Stage 3 chronic kidney disease, unspecified whether stage 3a or 3b CKD ([facility]/HCC V24, CMS/HCC V28) COPD, moderate (CMS/HCC V24, CMS/HCC V28) Depression, unspecified depression type Diabetes mellitus type 2 with neurological manifestations ([facility]/HCC V24, [facility]/HCC V28) Gout, unspecified cause, unspecified chronicity, unspecified site Hyperparathyroidism (CMS/HCC V24) Primary hypertension Hyperlipidemia, unspecified hyperlipidemia type Diastolic congestive heart failure, unspecified HF chronicity (CMS/HCC V24, CMS/HCC V28) Pulmonary hypertension (CMS/HCC V24, CMS/HCC V28) Paroxysmal atrial fibrillation (CMS/HCC V24, CMS/HCC V28) Obstructive sleep apnea Typical atrial flutter (CMS/HCC V24, CMS/HCC V28) HEMOGLOBIN A1C Routine 10/12/2024 10:35 AM EDT Stage 3 chronic kidney disease, unspecified whether stage 3a or 3b CKD ([facility], [facility] V28) COPD, moderate ([facility], [facility] V28) Depression, unspecified depression type Diabetes mellitus type 2 with neurological manifestations ([facility], [facility] V28) Gout, unspecified cause, unspecified chronicity, unspecified site Hyperparathyroidism ([facility] V24) Primary hypertension Hyperlipidemia, unspecified hyperlipidemia type Diastolic congestive heart failure, unspecified HF chronicity ([facility], [facility] V28) Pulmonary hypertension ([facility], [facility] V28) Paroxysmal atrial fibrillation ([facility], [facility] V28) Obstructive sleep apnea Typical atrial flutter ([facility], [facility] V28) COMPREHENSIVE METABOLIC PANEL Routine 10/12/2024 10:35 AM EDT Stage 3 chronic kidney disease, unspecified whether stage 3a or 3b CKD ([facility], [facility] V28) COPD, moderate ([facility], [facility] V28) Depression, unspecified depression type Diabetes mellitus type 2 with neurological manifestations ([facility], [facility] V28) Gout, unspecified cause, unspecified chronicity, unspecified site Hyperparathyroidism ([facility] V[facility]) Primary hypertension Hyperlipidemia, unspecified hyperlipidemia type Diastolic congestive heart failure, unspecified HF chronicity ([facility], [facility] V28) Pulmonary hypertension ([facility], [facility] V28) Paroxysmal atrial fibrillation ([facility], [facility] V28) Obstructive sleep apnea Typical atrial flutter ([facility], [facility] V28) MICROALBUMIN CREATININE URINE RATIO Routine 10/12/2024 10:35 AM EDT Stage 3 chronic kidney disease, unspecified whether stage 3a or 3b CKD ([facility], [facility] V[facility]) COPD, moderate ([facility], [facility] V[facility]) Depression, unspecified depression type Diabetes mellitus type 2 with neurological manifestations ([facility], [facility] V[facility]) Gout, unspecified cause, unspecified chronicity, unspecified site Hyperparathyroidism ([facility]) Primary hypertension Hyperlipidemia, unspecified hyperlipidemia type Diastolic congestive heart failure, unspecified HF chronicity ([facility]/HCC V24, [facility] V28) Pulmonary hypertension ([facility]/HCC V24, CMS/HCC V28) Paroxysmal atrial fibrillation ([facility] V24, [facility] V28) Obstructive sleep apnea Typical atrial flutter ([facility] V24, CMS/HCC V28) LIPID PANEL WITH REFLEX TO DIRECT LDL Routine 10/12/2024 10:35 AM EDT Stage 3 chronic kidney disease, unspecified whether stage 3a or 3b CKD ([facility] V24, [facility] V28) COPD, moderate ([facility]/HCC V24, [facility] V28) Depression, unspecified depression type Diabetes mellitus type 2 with neurological manifestations ([facility] V24, [facility] V28) Gout, unspecified cause, unspecified chronicity, unspecified site Hyperparathyroidism ([facility] V24) Primary hypertension Hyperlipidemia, unspecified hyperlipidemia type Diastolic congestive heart failure, unspecified HF chronicity ([facility] V24, [facility] V28) Pulmonary hypertension ([facility] V24, [facility] V28) Paroxysmal atrial fibrillation ([facility] V24, [facility] V28) Obstructive sleep apnea Typical atrial flutter ([facility] V24, [facility] V28) EXTERNAL DIABETIC RETINA EYE EXAM 10/03/2024 DXA BONE DENSITY STUDY 1+ SITS AXIAL SKEL Routine 08/12/2017 10:37 AM EDT Encounter for screening for osteoporosis Stage 3 chronic kidney disease ([facility] V24, [facility] V28) Hyperparathyroidism, unspecified ([facility] V24) from Last 3 Months or Most Recently Relevant to Health Maintenance Results * MR Lumbar Spine wo Contrast [...] Signed Date: 10/27/2024 17:39 ET Workstation ID: [id number] Transcribed By: Self Edit Transcribed Date: 10/27/2024 [...] Signed Date: 10/27/2024 17:39 ET Workstation ID: [id number] Transcribed By: Self Edit Transcribed Date: 10/27/2024 09:13 ET Miguel KWON [facility] MRI PROCEDURES Final Result * External CT Report (10/19/2024) Anatomical Region Laterality Modality Computed Tomogra phy Provider [facility] G CT PROCEDURES Final Result * (ABNORMAL) Urinalysis with reflex microscopic (10/14/2024 10:32 AM EDT) Specific [place] Urine 1.014 1.003 - 1.030 LAB URINALYSIS - AUTOMATED METHOD 10/14/2024 12:00 PM [facility] pH, Urine 6.0 5.0 - 8.0 pH LAB URINALYSIS - AUTOMATED METHOD 10/14/2024 12:00 PM [facility] Leukocytes, Urine Trace(A) Negative LAB URINALYSIS - AUTOMATED METHOD 10/14/2024 12:00 PM [facility] Nitrite, Urine Negative Negative LAB URINALYSIS - AUTOMATED METHOD 10/14/2024 12:00 PM [facility] Protein, Urine Trace <=Trace mg/dL LAB URINALYSIS - AUTOMATED METHOD 10/14/2024 12:00 PM [facility] Glucose, Urine Negative Negative mg/dL LAB URINALYSIS - AUTOMATED METHOD 10/14/2024 12:00 PM [facility] Ketones, Urine Negative Negative mg/dL LAB URINALYSIS - AUTOMATED METHOD 10/14/2024 12:00 PM [facility] Urobilinogen, Urine 0.2 0.2 - 1.0 mg/dL LAB URINALYSIS - AUTOMATED METHOD 10/14/2024 12:00 PM [facility] Bilirubin, Urine Negative Negative LAB URINALYSIS - AUTOMATED METHOD 10/14/2024 12:00 PM [facility] Blood, Urine Negative Negative LAB URINALYSIS - AUTOMATED METHOD 10/14/2024 12:00 PM [facility] RBC, Urine 2.6 0 - 4 /HPF LAB URINALYSIS - AUTOMATED METHOD 10/14/2024 12:00 PM [facility] WBC, Urine 6.8(H) 0 - 4 /HPF LAB URINALYSIS - AUTOMATED METHOD 10/14/2024 12:00 PM [facility] Squamous Epithelial, Urine >100(H) 0 - 60 /LPF LAB URINALYSIS - AUTOMATED METHOD 10/14/2024 12:00 PM [facility] Bacteria, Urine Negative Negative /HPF LAB URINALYSIS - AUTOMATED METHOD 10/14/2024 12:00 PM [facility] Hyaline Casts, Urine 1.6 0 - 3 /LPF LAB URINALYSIS - AUTOMATED METHOD 10/14/2024 12:00 PM [facility] Urine Urine specimen obtained by clean catch procedure / Unknown Non-blood Collection / Unknown 10/14/2024 10:32 AM EDT 10/14/2024 10:32 AM EDT us Miguel KWON LAB URINE ORDERABLES Dede craven Result [facility] [address] [place] [address], [place] [phone] * XR Lumbar Spine 4+ Views (10/14/2024 10:08 AM EDT) Anatomical Region Laterality Modality Spine, L-spine Radiographic Sravanthi ging 10/14/2024 11:5 3 AM EDT Impressions 10/14/2024 12:01 PM EDT Scoliosis. Extensive degenerative changes. Grade 1 spondylolisthesis at L4-5. POS - [id number] -------- FINAL REPORT -------- Dictated By: Lorena Conroy Dictated Date: 10/14/2024 11:53 ET Assigned Physician: Lorena Conroy Reviewed and Electronically Signed By: Lorena Conroy Signed Date: 10/14/2024 12:01 ET Workstation ID: [id number] Transcribed By: Self Edit Transcribed Date: 10/14/2024 11:53 ET Narrative 10/14/2024 12:01 PM EDT EXAM: Lumbar spine x-ray HISTORY: Low back pain. COMPARISON: None FINDINGS: 4 views of the lumbar spine were performed. 5 lumbar type vertebral bodies and a transitional lumbosacral element. Levoscoliosis with a rotatory component. Vertebral body heights appear maintained. Diffuse moderate/severe disc space narrowing. Diffuse endplate osteophytes which are bridging at multiple levels. Limited visualization of the right pars. No definite spondylolysis of the visualized left pars. Multilevel facet arthropathy. Grade 1 anterolisthesis of L4 on L5. Moderate atherosclerotic calcifications of the abdominal aorta with ectasia of the upper calcifications. Gastric band in place in the left epigastric region. Partially imaged right hip prosthesis. Procedure Note Lorean Conroy MD - 10/14/2024 EXAM: Lumbar spine x-ray HISTORY: Low back pain. COMPARISON: None FINDINGS: 4 views of the lumbar spine were performed. 5 lumbar type vertebral bodies and a transitional lumbosacral element.Levoscoliosis with a rotatory component. Vertebral body heights appearmaintained. Diffuse moderate/severe disc space narrowing. Diffuse endplateosteophytes which are bridging at multiple levels. Limited visualizationof the right pars. No definite spondylolysis of the visualized left pars.Multilevel facet arthropathy. Grade 1 anterolisthesis of L4 on L5. Moderate atherosclerotic calcifications of the abdominal aorta withectasia of the upper calcifications. Gastric band in place in the leftepigastric region. Partially imaged right hip prosthesis. IMPRESSION: Scoliosis. Extensive degenerative changes. Grade 1 spondylolisthesis atL4-5. POS - [id number] -------- FINAL REPORT -------- Dictated By: Lorena Conroy Dictated Date: 10/14/2024 11:53 ET Assigned Physician: Lorena Conroy Reviewed and Electronically Signed By: Lorena Conroy Signed Date: 10/14/2024 12:01 ET Workstation ID: [id number] Transcribed By: Self Edit Transcribed Date: 10/14/2024 11:53 ET Miguel KWON IMG XR PROCEDURES Final R esult * Lipid panel with reflex to direct LDL (10/12/2024 10:35 AM EDT) Cholesterol 141 0 - 200 mg/dL LAB CHEMISTRY METHOD 10/12/2024 3:23 PM [facility] Triglycerides 104 0 - 150 mg/dL LAB CHEMISTRY METHOD 10/12/2024 3:23 PM [facility] HDL 68 >=40 mg/dL LAB CHEMISTRY METHOD 10/12/2024 3:23 PM [facility] LDL Calculated 52 0 - 100 mg/dL LAB CHEMISTRY METHOD 10/12/2024 3:23 PM [facility] Comment:Estimated LDL Calcul ated using equation: Total cholesterol - HDL cholesterol - (Triglycerides/5) VLDL Cholesterol Jonathan 20.8 mg/dL LAB CHEMISTRY METHOD 10/12/2024 3:23 PM [facility] Non HDL Chol. (LDL+VLDL) 73 <145 mg/dL LAB CHEMISTRY METHOD 10/12/2024 3:23 PM [facility] Chol/HDL Ratio 2.1 0.0 - 4.4 LAB CHEMISTRY METHOD 10/12/2024 3:23 PM [facility] Blood Venous blood specimen / Unknown Venipuncture / Unknown 10/12/2024 10:35 AM EDT 10/12/2024 10:35 AM EDT Miguel KWON LAB BLOOD ORDERABLES Dede merissa Result [facility] [address] [place] [address], * (ABNORMAL) CBC auto differential (10/12/2024 10:35 AM EDT) WBC 14.8(H) 4.8 - 10.8 K/mcL LAB HEMETOLOGY METHOD 10/12/2024 1:53 PM EDT [facility] RBC 4.20 3.80 - 4.80 M/mcL LAB HEMETOLOGY METHOD 10/12/2024 1:53 PM EDT [facility] Hemoglobin 12.3 11.5 - 16.0 g/dL LAB HEMETOLOGY METHOD 10/12/2024 1:53 PM EDT [facility] Hematocrit 39.6 35.0 - 47.0 % LAB HEMETOLOGY METHOD 10/12/2024 1:53 PM EDT [facility] MCV 93.6 79.0 - 98.0 FL LAB HEMETOLOGY METHOD 10/12/2024 1:53 PM EDT [facility] MCH 29.1 27.0 - 32.0 pcg LAB HEMETOLOGY [facility] MCHC 31.1(L) 32.0 - 37.0 g/dL LAB HEMETOLOGY METHOD 10/12/2024 1:53 PM EDT [facility] RDW 17.7(H) 11.0 - 15.0 % LAB HEMETOLOGY METHOD 10/12/2024 1:53 PM EDT [facility] Platelets 279 130 - 400 K/mcL LAB HEMETOLOGY METHOD 10/12/2024 1:53 PM EDT [facility] MPV 11.5(H) 7.0 - 11.0 FL LAB HEMETOLOGY METHOD [facility] NRBC 0.0 <1.0 % LAB HEMETOLOGY METHOD [facility] NRBC Absolute 0.00 <0.10 K/mcL LAB HEMETOLOGY METHOD 10/[facility]24 [facility] Neutrophils Relative 72.5 % LAB HEMETOLOGY METHOD 10/12/2024 1:53 PM [facility] Lymphocytes Relative 15.4 % LAB HEMETOLOGY METHOD 10/12/2024 1:53 PM [facility] Monocytes Relative 9.4 % LAB HEMETOLOGY METHOD 10/12/2024 1:53 PM [facility] Eosinophils Relative 2.0 % LAB HEMETOLOGY METHOD 10/12/2024 1:53 PM [facility] Basophils Relative 0.3 % LAB HEMETOLOGY METHOD 10/12/2024 1:53 PM [facility] Immature Granulocytes Relative 0.4 % LAB HEMETOLOGY METHOD [facility] Neutrophils Absolute 10.70(H) 1.50 - 7.00 K/mcL LAB HEMETOLOGY METHOD 10/[facility] Lymphocytes Absolute 2.27 1.00 - 5.00 K/mcL LAB HEMETOLOGY METHOD 10/[facility] Monocytes Absolute 1.38(H) 0.20 - 1.00 K/mcL LAB HEMETOLOGY METHOD 10/12/2024 1:53 PM EDT [facility] Eosinophils Absolute 0.29 0.00 - 0.50 K/mcL LAB HEMETOLOGY METHOD 10/12/2024 1:53 PM EDT [facility] Basophils Absolute 0.05 0.00 - 0.20 K/mcL LAB HEMETOLOGY METHOD 10/12/2024 1:53 PM EDT [facility] Immature Granulocytes Absolute 0.06(H) 0.00 - 0.03 K/mcL LAB HEMETOLOGY METHOD 10/12/2024 1:53 PM EDT [facility] Blood Venous blood specimen / Unknown Venipuncture / Unknown 10/12/2024 10:35 AM EDT 10/12/2024 10:35 AM EDT Miguel KWON LAB BLOOD ORDERABLES Dede l Result Performing Organization Address City/[facility]/ZIP Co de Phone Number [facility] [address] [place] [address], [place] [phone] * (ABNORMAL) Iron and TIBC (10/12/2024 10:35 AM EDT) Iron 47 40 - 150 mcg/dL LAB CHEMISTRY METHOD 10/12/2024 3:23 PM EDT [facility] TIBC 351 250 - 450 mcg/dL LAB CHEMISTRY METHOD 10/12/2024 3:23 PM EDT [facility] Iron Saturation 13(L) 15 - 50 % LAB CHEMISTRY METHOD 10/12/2024 3:23 PM EDT [facility] Blood Venous blood specimen / Unknown Venipuncture / Unknown 10/12/2024 10:35 AM EDT 10/12/2024 10:35 AM EDT [facility] Bindu KWON LAB BLOOD ORDERABLES Dede l Result Performing Organization Address City/[facility]/ZIP Co de Phone Number [facility] [address] [place] [address], [place] [phone] * (ABNORMAL) Microalbumin creatinine urine ratio (10/12/2024 10:35 AM EDT) Creatinine, Urine 85.0 mg/dL LAB CHEMISTRY METHOD 10/12/2024 2:39 PM EDT [facility] Microalb, Ur 80.3(H) 0.0 - 29.0 mg/L LAB CHEMISTRY METHOD 10/12/2024 2:39 PM EDT [facility] Microalb/Crea t Ratio 94(H) <30 mg/g creat LAB CHEMISTRY METHOD 10/12/2024 2:39 PM EDT [facility] Urine Urine specimen obtained by clean catch procedure / Unknown Non-blood Collection / Unknown 10/12/2024 10:35 AM EDT 10/12/2024 10:35 AM EDT Miguel KWON LAB URINE ORDERABLES Dede l Result [facility] [address] [place] [address], [place] [phone] * Uric acid (10/12/2024 10:35 AM EDT) Uric Acid 3.5 3.1 - 7.8 mg/dL LAB CHEMISTRY METHOD 10/12/2024 3:23 PM EDT [facility] Blood Venous blood specimen / Unknown Venipuncture / Unknown 10/12/2024 10:35 AM EDT 10/12/2024 10:35 AM EDT Miguel KWON LAB BLOOD ORDERABLES Dede l Result [facility] [address] [place] [address], [place] [phone] * Parathyroid hormone intact (10/12/2024 10:35 AM EDT) PTH 68.7 18.5 - 88.0 pcg/mL LAB CHEMISTRY METHOD 10/12/2024 4:29 PM EDT [facility] Blood Venous blood specimen / Unknown Venipuncture / Unknown 10/12/2024 10:35 AM EDT 10/12/2024 10:35 AM EDT [facility] Bindu [place] LAB BLOOD ORDERABLES Dede l Result Performing Organization Address City/[facility]/ZIP Co de Phone Number [facility] [address] [place] [address], [place] [phone] * Hemoglobin A1c (10/12/2024 10:35 AM EDT) [facility] Hemoglobin A1C 5.8 <6.5 % LAB CHEMISTRY METHOD 10/12/2024 3:09 PM EDT [facility] Mean Bld Glu Estim. 120 mg/dL LAB CHEMISTRY METHOD 10/12/2024 3:09 PM EDT [facility] Blood Venous blood specimen / Unknown Venipuncture / Unknown 10/12/2024 10:35 AM EDT 10/12/2024 10:35 AM EDT Miguel Morrison [place] LAB BLOOD ORDERABLES Dede l Result Performing Organization Address City/[facility]/ZIP Co de Phone Number [facility] [address] [place] [address], [place] [phone] * (ABNORMAL) Comprehensive metabolic panel (10/12/2024 10:35 AM EDT) [facility] Sodium 141 133 - 145 mmol/L LAB CHEMISTRY METHOD 10/12/2024 3:30 PM EDT [facility] Potassium 4.2 3.5 - 5.5 mmol/L LAB CHEMISTRY METHOD 10/12/2024 3:30 PM EDT [facility] Chloride 107 96 - 110 mmol/L LAB CHEMISTRY METHOD 10/12/2024 3:30 PM [facility] CO2 29 21 - 32 mmol/L LAB CHEMISTRY METHOD 10/12/2024 3:30 PM [facility] Anion Gap 5 3 - 11 LAB CHEMISTRY METHOD 10/12/2024 3:30 PM [facility] Glucose 88 70 - 100 mg/dL LAB CHEMISTRY METHOD 10/12/2024 3:30 PM [facility] BUN 9 5 - 25 mg/dL LAB CHEMISTRY METHOD 10/12/2024 3:30 PM [facility] Creatinine 1.02 0.50 - 1.10 mg/dL LAB CHEMISTRY METHOD 10/12/2024 3:30 PM [facility] eGFR 55(L) >=60 mL/min/1. 73m2 LAB CHEMISTRY METHOD 10/12/2024 3:30 PM [facility] Comment:Calculation based on the Chronic Kidney Disease Epidemiology Collaboration (CKD-EPI) equation refit without adjustment for race. BUN/Creatinine Ratio 8.8 LAB CHEMISTRY METHOD 10/12/2024 3:30 PM [facility] Calcium 9.9 8.5 - 10.5 mg/dL LAB CHEMISTRY METHOD 10/12/2024 3:30 PM [facility] AST (SGOT) 19 10 - 42 unit/L LAB CHEMISTRY METHOD 10/12/2024 3:30 PM [facility] ALT (SGPT) 22 10 - 60 unit/L LAB CHEMISTRY METHOD 10/12/2024 3:30 PM [facility] Alkaline Phosphatase 139(H) 42 - 121 unit/L LAB CHEMISTRY METHOD 10/12/2024 3:30 PM [facility] Total Protein 6.5 6.0 - 8.0 g/dL LAB CHEMISTRY METHOD 10/12/2024 3:30 PM [facility] Albumin 3.8 3.2 - 5.0 g/dL LAB CHEMISTRY METHOD 10/12/2024 3:30 PM EDT [facility] Total Bilirubin 0.6 0.0 - 1.4 mg/dL LAB CHEMISTRY METHOD 10/12/2024 3:30 PM EDT [facility] Blood Venous blood specimen / Unknown Venipuncture / Unknown 10/12/2024 10:35 AM EDT 10/12/2024 10:35 AM EDT Miguel KWON LAB BLOOD ORDERABLES Dede craven Result [facility] [address] [place] [address], [place] [phone] * External Diabetic Retina Eye Exam Report (10/03/2024) Anatomical Region Laterality Modality Ultrasound us Provider [facility] IMG US PROCEDURES Final Result * DXA BONE DENSITY STUDY 1+ SITS AXIAL SKEL (08/12/2017 10:37 AM EDT) Anatomical Region Laterality Modality Bone Densitometr y 07/10/2017 10:5 9 AM EDT Narrative 08/12/2017 12:21 PM EDT BONE DENSITY Left Wrist T-score is -0.5 (SD relative to 20-29 y/o adult) Z-score is +1.9 (SD relative to age matched peers) This is normal by criteria defined by the WHO. Left Hip T-score is +0.2 Z-score is +2.3 This is normal by criteria defined by the WHO. Comparison exam(s): significant decrease in bone density of hip when compared to most recent bone density examination Confidence level is +/-95%. Impression: Based on the World Health Organization criteria, Cindi Katz should be classified as having normal bone density. [facility] Department of Internal Medicine recommends using National [...] the World Health Organization criteria, Cindi Katz shouldbe classified as having normal bone density. [facility] Department of Internal Medicine recommendsusing National Osteoporosis [...] of fracture risk by FRAX. Miguel KWON IMCasimiro DXA PROCEDURES Final Result from Last 3 Months or Most Recently Relevant to Health Maintenance Insurance MEDICARE [facility] Care Teams Key Entry Operator Relationship Specialty Start Date End Date Miguel Morrison, CHER [address] [place] [id number] PCP - General Internal Medicine 02/16/20
--- OUTSIDE RECORDS SUMMARY | 2024-11-01 13:15 | XMS_ITS | Clinical Summary ---
Author Organization [facility] Address [address] [place] [id number] Phone Care Team Providers Care Dairy Scientist Name Role Phone Lowell Washington MD Primary [...] [place] [id number] [facility] MEDEX SUPPLEMENT MEDICARE PART A & B [facility] MEDEX SUPPLEMENT MEDICARE PART A & B [employer] MEDEX SUPPLEMENT MEDICARE PART A & B [employer] MED[employer] SUPPLEMENT MEDICARE PART A & B [employer] MED[employer] SUPPLEMENT MEDICARE PART A & B [employer] MED[employer] SUPPLEMENT MEDICARE PART A & B [employer] MEDEX SUPPLEMENT MEDICARE PART A & B [employer] SUPPLEMENT MEDICARE PART A & B [employer] MEDEX SUPPLEMENT Care Teams Dairy Scientist Relationship Specialty Start Date End Date Lowell Washington MD [address] [place] [id number] PCP - General Internal Medicine 01/28/21 Additional Source Comments The information contained in this document represents components of the legal health record. It is not the complete legal health record.[facility]
--- OUTSIDE RECORDS SUMMARY | 2024-11-01 13:15 | XMS_ITS ---
Author Organization [facility] [address] [facility] Address [address] [place] [address] Phone Care Team Providers Care Risk Control Representative Name Role Phone Miguel Morrison Primary Care Provider [phone] Transitional Care Management Status:Ongoing (Active) Start date:10/25/2024 Enrollment date:10/26/2024 Enrollment reason:Identified using hospital discharge data Case Team Name Relationship Phone Zuleyma Grace LPN Care Manager(Responsible Staf f) [phone] Continued Care and Services Coordination
[2024-11-01 13:51] LABS: B Type Natriuretic Peptide 131 pg/mL (<100)
[2024-11-01 13:54] LABS: Anion Gap 12 (12-20); Blood Urea Nitrogen 10 mg/dL (9-16); Calcium 10.3 mg/dL (8.4-10.2); Carbon Dioxide 30 mmol/L (22-29); Chloride 107 mmol/L (96-108); Estimated Glomerular Filt Rate 60; Potassium 4.7 mmol/L (3.3-5.1); Sodium 144 mmol/L (135-145)
== END 2024-11-01 11:42 | disposition home or self-care (01) ==
LOC: HO.LAB 11:41
PROVIDERS: PCP Physician Assistant Medical; Visit Provider Internal Medicine
DX: I50.9 Heart failure, unspecified (principal)
CPT/HCPCS: 36415; 80048; 83880

== ENCOUNTER 2024-11-28 12:29 | Outpatient (REF) | payer MEDICARE, SELFPAY ==
[2024-11-28 13:08] LABS: Anion Gap 13 (12-20); Blood Urea Nitrogen 16 mg/dL (9-16); Calcium 10.5 mg/dL (8.4-10.2); Carbon Dioxide 33 mmol/L (22-29); Chloride 103 mmol/L (96-108); Estimated Glomerular Filt Rate 52; Magnesium 2.3 mg/dL (1.6-2.6); Potassium 3.9 mmol/L (3.3-5.1); Sodium 145 mmol/L (135-145)
[2024-11-28 13:15] LABS: NT Pro B Type Natriuretic Pept 901.4 pg/mL (<300)
--- OUTSIDE RECORDS SUMMARY | 2024-11-28 13:44 | XMS_ITS | Encounter Summary ---
Author Organization [facility] Address [address] [place] [address] Care Team Providers Care Medical Technologist Name Role Phone Miguel Morrison Primary Care Provider [phone] Encounter Details Date Type Department Care Team (Late st Contact Info) Description 11/24/2024 Telephone [facility] - [facility] [place] [address] [facility] [place] [address] [place] [address] Lorrie Avalos, ABDOUALYE Social History Tobacco Use Types Packs/Day Years Used Date Smoking Tobacco: Former Cigarettes 2.5 45.9 0 08/12/1951 - 07/04/1999 Smokeless Tobacco: Never Alcohol Use Standard Drinks/Week Comments No 0 (1 standard drink = 0.6 oz pur e alcohol) Housing Instability Answer Date Recorde d Are you worried that in the next 2 months you may not have stable housing? No 11/08/2024 Food Access & Nutrition Answer Date Rec orded Do you have access to a vari ety of food including fruits and vegetables? Yes 11/08/2024 Access to Healthcare Answer Date Record ed Within the last 3 months, joslyn mccartney many times did you visit the emergency department for your medical care? 1 11/08/2024 Health Literacy Answer Date Recorded How often do you need to hav e someone help you when you read instructions, pamphlets, or other written material from your doctor or pharmacy? Rarely 11/08/2024 Caregiver: How often do you need to have someone help you when you read instructions, pamphlets, or other written material from your doctor or pharmacy? Not on file 11/08/2024 Financial Risk Answer Date Recorded How hard is it for you to pa y for the very basics like food, housing, medical care, and air conditioning / heating? Not very hard 11/08/2024 Transportation Answer Date Recorded Has the lack of transportati on kept you from meetings, work, or from getting things needed for daily living? No Has the lack of transportati on kept you from medical appointments or from getting medications? No 11/08/2024 Social Isolation Answer Date Recorded How often do you feel lonely or isolated from th ose around you? Never 11/08/2024 Food Risk Answer Date Recorded Within the past 12 months we worried whether our food would run out before we got money to buy more. Never true 11/08/2024 Within the past 12 months th e food we bought just didn't last and we didn't have money to get more. Never true 11/08/2024 Dependent Care Answer Date Recorded Do you need help finding or paying for care for your loved ones. For example, child psychiatrist or elderly care for an older adult? No 11/08/2024 Education Answer Date Recorded Do you think completing more education or training, like finishing a GED, going to college, or learning a trade, would be helpful for you? N/A 11/08/2024 Employment and Income Answer Date Recor ded During the last four weeks, have you been actively looking for work? No 11/08/2024 Living Situation Answer Date Recorded What is your living situation? Unrecognized valu e 11/08/2024 Comments No Sex and Gender Information Value Date Recorded Sex Assigned at Not on file Legal Sex Female 9:51 PM EST Gender Identity Not on file Sexual Orientation Not on file documented as of this encounter Progress Notes * Belkys Lucas, J2EE CONSULTANT - 11/28/2024 12:35 PM EDT Her lungs sound to be unchanged when compared to Shilpi's visit on 11/17/24. But her BP is quite elevated, leading to a propensity to hold onto water Let's see if her labs allow more diuresis which would also help her BP * Clovis Murillo RN - 11/28/2024 11:46 AM EDT Please see below. Called harish Jones this AM for an update. States pt is doing better. Had completed the additional 2 day increase of Lasix 40mg BID and is back to normal dosing 40mg daily. Swelling infeet has improved. U/O consistent. Weight has been consistent no significant weight loss over the weekend. Per [facility] this AM still has crackles in bases, BP 178/76, no other concerns from [facility]. Has baseline LOPEZ - no worsening SOB. Labs drawn this AM by [facility], results pending. Is aware to cont to monitor, aware to call office back if any changes in s/s. Is aware for any developing concerning s/s to call 911. * Clovis Murillo RN - 11/25/2024 9:41 AM EDT Called [facility] this AM and scheduled home lab draw for pt on Thursday - BMP, BNP, Mag - resultingagency is [facility]. Called son back this AM. Made aware of lab draw on Thursday. Is aware for now, per provider, we will be following up on Thursday for an update and determine from there if pt would need to schedule a triage apt. Is thankful for the call back. * Shari Guerrero NP - 11/24/2024 6:21 PM EDT Sure, ok to add BMP and BNP to mag level already ordered for next week. Let's have her check in on Tuesday 11/28 to see how she is doing and can get her set up for a triage visit as needed at that point if it is still needed. * Clovis Murillo RN - 11/24/2024 5:05 PM EDT Called pt's son Robert this PM and made aware of Dia Guerrero's response below. Is aware and already has the RX for the Mag replacement. Is aware to additionally have labs drawn in one week. States uses [facility] but is aware I will f/u with [facility] to see if we can do a home draw. Shilpi: Do we want BMP, MAG, and a BNP for next week? Is aware to cont increase of Lasix for another 2 days to 40 mg twice daily to see if we can take off some more fluid and improve swelling further and then go back to normal dosing. Aware to have her elevate her legs and encourage daily compression stocking use. Aware to encouragestrict low-sodium diet as well as daily weights. States his sister has already called about the high sodium meals provided by [employer] and is awaiting call back to see if they offer any alternatives (low salt meals). Is aware blood pressures and heart rates should be checked 1 to 2 hours after medications are taken in the morning. Made aware to also encourage her to call her toddler caregiver as recommended at her last visit. No available apts with you to book, do you want me to schedule with another ANISH or squeeze her in atriage spot with Dr. Dobbs? * Shari Guerrero NP - 11/24/2024 4:12 PM EDT Chart reviewed. The patient had labs completed yesterday showing normal renal function and low magnesium but otherwise normal electrolytes; I have started her on a magnesium supplement and it has been sent to the pharmacy for her with recheck of labs due in about 1 week. Please have her increase her Lasix for another 2 days to 40 mg twice daily to see if we can take off some more fluid and improve swelling further. Please have her elevate her legs and encourage daily compression stocking use. Please encourage strict low-sodium diet as well as daily weights. Agree that there needs to be an alternative to high sodium meals provided by [employer]. Blood pressures and heart rate should be c hecked 1 to 2 hours after medications are taken in the morning. Please also encourage her to call her toddler caregiver as I recommended at her last visit. FYI, the patient does not have an appointment with me on 11/29/2024; this was canceled by the patient. * Lorrie Avalos RN - 11/24/2024 2:40 PM EDT Images from the original note were not included. See below sent from [facility] [employer]. Patient has appt 11/29/24 with SHILPI. Na Talbert RN [facility] [address] [facility] minutes ago (2:04 PM) [facility], Pt is not wearing compression stockings. Pt has swelling in right ankle and the left leg from the krishna down to the foot. The swelling is down and looks better than it did when I started the Lasix. Pt was not aware to take Lasix 40 mg po for 2 days. Pt took Lasix 40 mg po today. Pt took Lasix 40 mg po BID for the past 3 days. Daily weight has not been taken in 3 days. Pt receiving MOW and sodiumcontent in today's lunch was 902 mgs of sodium. Daughter to contact [facility] where pt is receiving MOW's to see if a cardiac diet is offered. 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 Date Daily weight BP O2 sat 11/24 Not taken 158/78 93% 11/23 Unsure 146/67 88% 11/22 Not taken had appts 11/21 174 168/82 95% 11/20 178.2 153/66 91% 11/19 178 124/60 90% Blood pressure taken before medications. Pt not recording heart rates, I asked to do so moving forward. Oxygen saturation is taken Sometimes with or without oxygen. If I am sitting I do not wear theoxygen as much. Please call pt to advise, Thank you Na Talbert RN aemt [facility] PH: [phone] Hours: M-F 7:30a-4p documented in this encounter Plan of Treatment Upcoming Encounters Date Type Department Care Team (Late st Contact Info) Description 11/29/2024 9:00 AM EDT Office Visit Adult Medicine [facility] [address] [place], [place] [phone] Lexi De Oliveira PA [address] [place], [place] 12/27/2024 2:15 PM EDT Office Visit Orthopedic Surgery - [place] [address] [phone] Manolo Trammell DPM [address] [phone] 01/02/2025 8:00 AM EST Appointment [facility] Endoscopy [address] [place] [phone] Rylan Castillo DO [address] [phone] 01/30/2025 9:45 AM EST Office Visit Pulmonology [facility] [address] [phone] Jose Guillen MD [address] [address] 08/10/2025 1:00 PM EDT Office Visit Nephrology [facility] [address] [place] [address] Karthik Marroquin MD [address] [phone] Scheduled Orders Name Type Priority Associated Diagnoses Orde r Schedule Basic metabolic panel Lab Routine Diastolic congestive heart failure, unspecified HF chronicity (CMS/HCC V24, [facility] V28) 1 Occurrences starting 11/25/2024 until 11/24/2025 B-type natriuretic peptide Lab Routine Diastolic congestive heart failure, unspecified HF chronicity ([facility] V24, [facility] V28) 1 Occurrences starting 11/25/2024 until 11/24/2025 documented as of this encounter Goals Goal Patient Goal Type Associated Problems Recent Progress Patient-Stated? Author Adherence to Treatment Plan General Na Hua, RN Note: To to weigh herself daily Pt to continue to follow a low salt diet documented as of this encounter Visit Diagnoses Diagnosis Diastolic congestive heart failure, unspecified HF chronicity ([facility] V24, [facility] V28)- Primary documented in this encounter Additional Health Concerns Assessment Noted Time PHQ-9 Depression Total Score: 0 03/09/19 25 8:56 AM EST documented as of this encounter Care Teams Medical Technologist Relationship Specialty Start Date End Date Miguel Morrison PA [address] [place] [address] PCP - General Internal Medicine 02/16/20 documented as of this encounter
--- OUTSIDE RECORDS SUMMARY | 2024-11-28 13:44 | XMS_ITS | Encounter Summary ---
Author Organization [facility] Address [address] [place] [address] Care Team Providers Care Director Of Academic Name Role Phone Miguel Morrison Primary Care Provider [phone] Reason for Visit * Reason Onset Date Comments Results 11/24/2024 Bmp/Mag levels Encounter Details Date Type Department Care Team (Late st Contact Info) Description 11/24/2024 Telephone [facility] - [facility] [address] [facility] [place] [address] [place] [address] Gisel Crain MA Social History Tobacco Use Types Packs/Day Years [...] for your loved ones. For example, children's ministry director or elderly care for an older [...] Refills Last Filled Start Date End Date magnesium oxide (MAG-OX) 400 mg (241.3 elemental magnesium) tabletIndications:H ypomagnesemia Take 1 tablet (400 mg total) by mouth 1 (one) time each day. 90 each 1 11/24/2024 documented in this encounter Progress Notes * Shari Marinelli NP - 11/24/2024 10:23 AM EDTAddended by: SHILPI MARINELLI on: 11/24/2024 10:23 AM Modules accepted: Orders * Shari Marinelli NP - 11/24/2024 10:21 AM EDT Magnesium prescription sent and orders entered as below. * Gisel Crain MA - 11/24/2024 9:26 AM EDT Spoke with the patient and her daughter and she is okay with you sending the Magnesium Oxide to [facility] [place] [facility]. You can place the order for the repeat labs as she goes to a [place] lab. Thank you * Gisel Crain MA - 11/24/2024 9:25 AM EDT ----- Message from Boo Marinelli NP sent at 11/23/2024 7:33 PM EDT ----- Please call the patient and let her know that her magnesium level came back low; I would like her to start magnesium oxide 400 mg tablet once daily with a repeat of labs in approximately 1 week. I amhappy to send it to the pharmacy for her if you can confirm which pharmacy she would like it to go to; also confirm which lab she will go to. Please let her know that sometimes this will cause some GI upset; if it is really significant, she should notify our office and we can discuss an alternativebut most people tolerate it well. Otherwise her labs look fine; her kidney function is much improved from the past and electrolytes are otherwise normal. Thank you. documented in this encounter Plan of Treatment Upcoming Encounters Date Type Department Care Team (Late st Contact Info) Description 11/29/2024 9:00 AM EDT Office Visit Adult Medicine [facility] [address] [place], [place] [phone] Lexi De Oliveira PA [address] [place], [place] 12/27/2024 2:15 PM EDT Office Visit Orthopedic Surgery - [place] [address] [phone] Manolo Trammell DPM [address] [phone] 01/02/2025 8:00 AM EST Appointment [facility] Endoscopy [address] [place] [phone] Rylan Castillo DO [address] [address] 01/30/2025 9:45 AM EST Office Visit Pulmonology [facility] [address] [phone] Jose Guillen MD [address] [address] 08/10/2025 1:00 PM EDT Office Visit Nephrology [facility] [address] [place] [address] Karthik Marroquin MD [address] [facility] [address] [place] [phone] Scheduled Orders Name Type Priority Associated Diagnoses Orde r Schedule Magnesium Lab Routine Hypomagnesemia 1 Occurrences starting 11/24/2024 until 11/24/2025 documented as of this encounter Goals Goal Patient Goal Type Associated Problems Recent Progress Patient-Stated? Author Adherence to Treatment Plan General Na Hua, RN Note: To to weigh herself daily Pt to continue to follow a low salt diet documented as of this encounter Visit Diagnoses Diagnosis Hypomagnesemia- Primary Disorders of magnesium metabolism documented in this encounter Additional Health Concerns Assessment Noted Time PHQ-9 Depression Total Score: 0 03/09/19 25 8:56 AM EST documented as of this encounter Care Teams Director Of Academic Relationship Specialty Start Date End Date Miguel Morrison PA [address] [place] [address] PCP - General Internal Medicine 02/16/20 documented as of this encounter
--- OUTSIDE RECORDS SUMMARY | 2024-11-28 13:44 | XMS_ITS | Clinical Summary ---
Author Organization [facility] [address] [facility] Address [address] [place] [address] Phone Care Team Providers Care Indirect Sales Representative Name Role Phone Miguel Morrison Primary Care Provider [phone] Allergies Active Allergy Reactions Criticality Noted Date Comments Fentanyl 08/15/2022 delerium Medications albuterol HFA (PROAIR HFA ; PROVENTIL HFA ; VENTOLIN HFA) 90 mcg/actuation inhaler Inhale 2 puffs by mouth. 10/02/19 24 Active acetaminophen (TYLENOL) 500 mg tablet Take by mouth. Activ e glucose blood test strip Test blood sugar 3 times daily 12/05/19 16 Active Oxygen Therapy (O2) gas Administer 2-3 L into affected nostril(s). Active blood-glucose meter misc 1 Lancet by extracorporeal route 1 (one) time each day. 12/05/19 16 Active Autolet lancing device by Not Applicable route. 02/07/20 05 Active ONETOUCH DELICA LANCETS MISC Test blood sugar 3 times daily 12/05/19 16 Active DULoxetine (CYMBALTA) [address] capsule Take 1 capsule (60 mg total) by mouth 1 (one) time each day. 90 capsule 1 03/28/19 25 Active colchicine (COLCRYS) 0.6 mg tablet TAKE 1 TABLET BY MOUTH DAILY NEEDED (FOR GOUT FLARE UP) 90 tablet 1 03/28/19 25 Active buPROPion XL (WELLBUTRIN XL) 300 mg 24 hr tablet Take 1 tablet (300 mg total) by mouth 1 (one) time each day in the morning. 90 tablet 1 03/28/19 25 Active rosuvastatin (CRESTOR) 20 mg tablet Take 1 tablet (20 mg total) by mouth 1 (one) time each day. 90 tablet 3 03/28/19 25 Active budesonide-gly copyr-formoter ol (Breztri Aerosphere) 160-9-4.8 mcg/actuation HFA aerosol inhaler inhaler Inhale 2 puffs by mouth 1 (one) time each day. 1 each 1 03/28/19 25 Active dilTIAZem CD (CARDIZEM CD) 180 mg 24 hr capsule Take 1 capsule (180 mg total) by mouth 1 (one) time each day. 90 each 2 04/08/19 25 Active freestyle (FreeStyle Lancets) 28 gauge lancets Use to check blood sugar daily 100 each 06/21/19 25 Active blood sugar diagnostic (FreeStyle Lite Strips) test strip Use to check blood sugar daily 100 each 06/21/19 25 Active busPIRone (BUSPAR) 7.5 mg tablet Take 1 tablet (7.5 mg total) by mouth 2 (two) times a day. 180 each 07/14/19 25 Active ferrous sulfate (Slow Fe) 137 mg (45 mg iron) tablet extended release Take 1 tablet by mouth 1 (one) time each day. 90 tablet 07/14/19 25 Active allopurinoL (ZYLOPRIM) 100 mg tablet TAKE 1 TABLET DAILY 90 tablet 09/02/19 25 Active lisinopril (PRINIVIL,ZEST RIL) 40 mg tablet TAKE 1 TABLET DAILY 90 tablet 09/02/19 25 Active furosemide (LASIX) 40 mg tablet TAKE 1 TABLET DAILY 30 tablet 11 09/27/19 25 Active Eliquis 5 mg tablet TAKE 1 TABLET TWICE A DAY 90 tablet 09/27/19 25 Active omeprazole (PriLOSEC) [address] capsule TAKE 1 CAPSULE TWICE A DAY 90 capsule 09/27/19 25 Active Additional Information Patient taking differently:20 mg oralDaily, Reported on 11/17/2024 polyethylene glycol (Golytely) 236-22.74-6.74 -5.86 gram solution Take 4L by mouth once for one dose. May substitue any PEG. Starting at 2PM the day before your procedure drink 1 8oz glasses at your own pace until you complete half of the gallon. Finish 2nd half of the gallon at 8PM. 4000 mL 10/13/19 Active bisacodyL (DULCOLAX) 5 mg EC tablet Take 2 tablets by mouth right before beginning bowel prep. See instructions provided by the office 2 tablet 10/13/19 Active Additional Information Patient not taking.Reported on 11/17/2024 blood-glucose meter kit Used to check blood sugar daily 1 each 11/09/19 Active lancets lancets Used to check blood sugar daily 100 each 11 11/09/19 Active potassium chloride (MICRO-K) 10 mEq CR capsule Take 2 capsules (20 mEq total) by mouth 1 (one) time each day. 180 capsule 11/16/19 25 Active multivit-min/f errous fumarate (MULTI VITAMIN ORAL) Take by mouth. Activ e HYDROcodone-ac etaminophen (NORCO) 5-325 mg per tablet Take 1 tablet by mouth every 6 (six) hours if needed for severe pain. Max Daily Amount: 4 tablets Active magnesium oxide (MAG-OX) 400 mg (241.3 elemental magnesium) tabletIndicati ons:Hypomagnes emia Take 1 tablet (400 mg total) by mouth 1 (one) time each day. 90 each 1 11/25/19 25 Active blood-glucose meter kit 1 each if needed (use to check blood sugar daily). 1 each 06/21/19 25 025 Discontin ued(Reord er) potassium chloride (MICRO-K) 10 mEq CR capsule Take 2 capsules (20 mEq total) by mouth 1 (one) time each day. 180 capsule 3 08/03/19 25 025 Discontin ued(Reord er) Active Problems Problem Noted Date Diagnosed Date Tricuspid valve insufficiency 11/18/2024 Assessment & Plan (11/18/2024 2:46 PM EDT): Mild TR and mild aortic valve stenosis were both noted on her most recent echocardiogram from 10/20/2024. Will continue to monitor these on serial echocardiograms. Aortic valve stenosis 11/18/2024 Assessment & Plan (11/18/2024 2:46 PM EDT): As above. Coronary artery disease invo lving barrow coronary artery of barrow heart without angina pectoris 11/17/2024 Assessment & Plan (11/18/2024 2:46 PM EDT): The patient is noted to have a diagnosis of coronary artery disease on her chart today; however, I do not see this on her problem list in [facility] epic prior to our conversion to the current system. Her cath from 2012 showed minimal luminal irregularities. She does present today with worsening shortness of breath with exertion; she presented in respiratory distress at the time of her cath in 2012. It does not currently appear as though her shortness of breath is related to underlying ischemia; rather it appears as though it is related to diastolic heart failure and underlying pulmonary disease. We will continue to pursue her shortness of breath from this perspective; we will continue to consider underlying ischemia as an anginal equivalent should this be unrevealing for a cause. 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 I have reviewed these findings with Dr. Dobbs who would like to review the echo images from [place] himself; I will reach out to the appropriate folks to get this done. She is aware of the need for antibiotic prophylaxis 30 to 60 minutes prior to dental procedures or cleanings. Acute exacerbation of CHF (c ongestive heart failure) (CMS/[facility] V24, CMS/[facility] V28) 11/16/2024 Chronic cough 12/22/2023 SOB (shortness of breath) 12/22/2023 Assessment & Plan (11/18/2024 2:46 PM EDT): As above, likely multifactorial related to underlying pulmonary hypertension due to both diastolic heart failure and underlying pulmonary disease (on supplemental oxygen) as well as deconditioning and obesity. Her diastolic heart failure is likely aggravated by her valvular dysfunction as well as significant dietary indiscretions. She reports that she has become more reliant on her supplemental oxygen than in the past, even at rest now; review of her previous notes shows that she previously reported needing her supplemental oxygen even with walking just a few feet around the house. We are attempting to improve symptoms with increases in her diuretics. Otherwise, I have asked her to follow-up with her filling machine operator for continued evaluation and treatment. We will continue to readdress this as indicated. Pulmonary hypertension ([facility] V24, CMS/[facility] V28 ) 11/18/2023 Assessment & Plan (11/18/2024 2:46 PM EDT): Peripheral edema 11/17/2023 Overview (01/04/2024): Last Assessment & Plan: As above; may be related to heart failure but we will evaluate for venous insufficiency with bilateral venous duplex study. Secondary hypercoagulable state (CMS/[facility] V24) Assessment & Plan (11/18/2024 2:46 PM EDT): Typical atrial flutter (CMS/HCC V24, CMS/HCC V28 ) 08/21/2021 Arthritis of carpometacarpal (CMC) [...] will contiue to monitor with serial echocardiograms. Assessment & Plan (11/18/2024 2:46 PM EDT): Diastolic congestive heart f ailure (CMS/[facility] V24, CMS/[facility] V28) 05/18/2020 Overview (01/04/2024): Last Assessment & [...] day or 4 pounds in one week. Assessment & Plan (11/18/2024 2:46 PM EDT): The patient's most recent echocardiogram on 10/20/2024 showed preserved systolic function with an LV EF of 65 to 70% with mild aortic stenosis and a significantly increased gradient across her bioprosthetic mitral valve suggestive of significant stenosis. She was also noted to have moderate to severe pulmonary hypertension, likely due to combination of her diastolic dysfunction and underlying COPD. At the time of this echocardiogram, she was hospitalized for heart failure exacerbation and diuresed well while inpatient and was discharged home on her home dose of Lasix. She reports today that she does not feel as though her breathing improve much at all with this increased diuresis and she remains short of breath with increased supplemental oxygen requirements and is noted to have right lower lobe crackles and increased bilateral lower extremity edema. Given what we discussed today, I suspect that her recent heart failure exacerbation was due to a combination of different factors including dietary indiscretions and worsening valvular dysfunction. She has continued to eat poorly with a high sodium diet. We had a very detailed discussion regarding the importance of a strict low-sodium diet, elevating her legs and using compression stockings which she admits she does have at home. She was encouraged to not cross her legs which she was noted to do throughout the entirety of her visit today and corresponds with an indentation on her right anterior lower leg at the site of her previous injury. She was instructed on daily weights. She reports that historically, she has not benefited from an extra 20 mg of furosemide in addition to her normal daily dosing of 40 mg daily; as such we will have her increase her furosemide to 40 mg twice daily for the next 3 days with close follow-up of her renal function and electrolytes early next week. She will call us on Thursday11/21/2024 to let us know how she responded; at that point, we could consider continuing this higher dose for a longer timeframe if she did have a good response but continues to have symptoms. ER precautions were reviewed. We discussed risk reduction through lifestyle modifications including healthy diet, routine exercise, and weight management. We reviewed heart failure management including low sodium diet, symptom surveillance, daily weights, and medication compliance. I've asked the patient to call if they develop worsening symptoms of heart failure such as increased shortness of breath, new or worsening cough, increased swelling in the legs or ankles, or weight gain of more than 2 pounds in one day or 4 pounds in one week. Orders: Basic metabolic panel; Future Magnesium; Future Paroxysmal atrial fibrillation ([facility] V24, [facility] V28) 05/18/2020 Overview (01/04/2024): Unsuccessful MARIA ANTONIA [...] internal bleeding, or for any head injury. Assessment & Plan (11/18/2024 2:46 PM EDT): Patient has a history of paroxysmal atrial fibrillation; rhythm is regular on exam today. Rate is well-controlled on diltiazem alone. She is anticoagulated on Eliquis for cardioembolic prophylaxis. We discussed the risks and benefits of continuing with anticoagulation and she wishes to continue with current plan. Eliquis 5 mg twice daily is the appropriate dose for her age of greater than 80 years, weight of greater than 60 kg, and creatinine of less than 1.5. She is aware to seek urgent medical attention for any uncontrolled bleeding, signs or symptoms of GI or other internal bleeding, or for any head injury. Pulmonary embolism ([facility] V24, [facility] V28) Disease due to severe acute respiratory syndrome coronavirus 2 (SARS-CoV-2) 01/25/2020 Hyperparathyroidism ([facility] V24) 07/09/2017 Diabetes mellitus type 2 wit h neurological manifestations ([facility] V24, [facility] V28) 03/19/2015 Hyperlipidemia 02/24/2014 Overview (01/04/2024): Last Assessment & Plan: Most recent lipid panel completed 05/05/2023 with an LDL of 55 which is at goal for this patient who has a history of coronary artery disease as well as diabetes. Continue with rosuvastatin. Assessment & Plan (11/18/2024 2:46 PM EDT): The patient's most recent lipid panel was completed on 10/12/2024 showing an LDL of 52 which is at goal; continue rosuvastatin. S/P mitral valve replacement 10/26/2012 Overview (01/04/2024): 09/2012 Dr. Garay Last Assessment & Plan: Her mitral valve is normally functioning on most recent MARIA ANTONIA as well as TTE. Continue routine surveillance, as well as antibiotic prophylaxis prior to dental or surgical procedures. Assessment & Plan (11/18/2024 2:46 PM EDT): Lung nodules 08/25/2012 Overview (01/04/2024): Multiple low suspicion lung nodules. Previous smoker, will repeat in 1 year for follow up( due in 07/2013) Obesity 10/02/2010 Overview (01/04/2024): Last Assessment & Plan: Patient is obese. Approaches towards weight loss are discussed, including burning more calories than one takes in by portion control and regular exercise with an emphasis on duration rather than intensity . Assessment & Plan (11/18/2024 2:46 PM EDT): Patient is obese. Approaches towards weight loss are discussed, including burning more calories than one takes in by portion control and regular exercise with an emphasis on duration rather than intensity. COPD, moderate (CMS/HCC V24, CMS/HCC V28) 2010 Overview (01/04/2024): last PFTs 03/2009; on 2.5-3 L portable oxygen with activity Last Assessment & Plan: I have requested she use her inhalers as ordered, including rescue inhaler, to see if this improves breathing at all. Continue supplemental oxygen with exertion. She will continue to follow with pulmonology. CKD (chronic kidney disease) stage 3, GFR 30-59 ml/min (CMS/HCC V24, CMS/HCC V28) 05/06/2010 Overview (01/04/2024): Last Assessment & Plan: Continues to follow with Dr. Marroquin as recommended. Will update metabolic panel after the completion of increased furosemide dosing x [address] with Dr Marroquin moving forward as indicated. Microalbuminuria 05/06/2010 Status post hip replacement 05/06/2010 Obstructive sleep apnea 08/09/2009 Overview (01/04/2024): Has mask Used infrequently. [facility] Home Sleep Apnea Test: Date 10/23/2017; Wt 221#; BMI 42; VIK 7, AI 0.4; HI 6.4; Unclassified apneas 0; Obstructive apneas 3; Central apneas 0; Mixed apneas 0; hypopneas 50; average oxygen saturation 90% (lowest 80% with saturations <88% for 5% or more of study) [facility] Sleep Center Polysomnogram treatment study. Date [...] own machine; she is working with her filling machine operator regarding this. Depression 09/07/2008 Gout 09/25/2005 Hypertension 03/13/2005 Overview (01/04/2024): Last Assessment & Plan: Blood pressure is relatively well-controlled on current medical therapy; continue lisinopril, diltiazem, and furosemide. Patient continues to follow with nephrology as per their recommendation; will continue to follow labs to assist with further treatment planning. Assessment & Plan (11/18/2024 2:46 PM EDT): Blood pressure is favorable on current medical therapy; continue current antihypertensive regimen with lisinopril, diltiazem, and furosemide. Most recent metabolic panel from hospitalization showed normal renal function and electrolytes. Orders: Basic metabolic panel; Future Magnesium; Future Lumbosacral spondylosis without myelopathy 02/05 Overview (01/04/2024): SX x 2 Encounters Date Type Department Care Team Description 11/24/2024 Telephone [facility] Cardiology [facility] [address] [place] [address] Lorrie Avalos RN 11/24/2024 Telephone [facility] [address] [place] [address] Gisel Crain MA 11/21/2024 Telephone [facility] [address] [place] [phone] Shari Guerrero NP 11/20/2024 Telephone Adult Medicine [address] [phone] Alphonse Amos MD 11/18/2024 Telephone Adult Medicine [address] [phone] Miguel Morrison PA 11/17/2024 12:40 PM EDT Office Visit [facility] [address] [place] [phone] Shari Guerrero NP Chronic diastolic congestive heart failure (CMS/HCC V24, CMS/HCC V28) (Primary Dx); Pulmonary hypertension (CMS/HCC V24, CMS/HCC V28); Stenosis of prosthetic mitral valve, subsequent encounter; S/P mitral valve replacement; Nonrheumatic mitral valve stenosis; Tricuspid valve insufficiency, unspecified etiology; Aortic valve stenosis, etiology of cardiac valve disease unspecified; Coronary artery disease involving barrow coronary artery of barrow heart without angina pectoris; Hyperlipidemia, unspecified hyperlipidemia type; Primary hypertension; Paroxysmal atrial fibrillation (CMS/HCC V24, CMS/HCC V28); Secondary hypercoagulable state (CMS/HCC V24); Class 1 obesity due to excess calories with serious comorbidity and body mass index (BMI) of 33.0 to 33.9 in adult; SOB (shortness of breath); Hospital discharge follow-up 11/08/2024 Telephone Adult Medicine [address] [phone] Miguel Morrison PA 11/02/2024 Telephone [facility] Cardiology [facility] [address] [facility] [address] [place] [phone] Venancio Dobbs MD 10/28/2024 Telephone Adult Medicine [address] [phone] Miguel Morrison PA 10/26/2024 5:30 PM EDT - 10/26/2024 11:59 PM EDT Hospital Encounter Radiology Department [address] [phone] Low back pain without sciatica, unspecified back [...] or Self Care 10/26/2024 Telephone Adult Medicine [address] [phone] Amina Newberry PharmD 10/26/2024 Telephone [facility] Cardiology [facility] [address] [facility] [address] [place] [phone] Emily Kevin 10/21/2024 Telephone [facility] Cardiology [facility] [address] [place] [phone] Venancio Dobbs MD 10/21/2024 Telephone Gastroenterology - [place] [address] [facility] [address] [place] [address] Jonathan RylanDO 10/14/2024 9:53 AM EDT - 10/14/2024 11:59 PM EDT Hospital Encounter [address] [phone] Low back pain without sciatica, unspecified back [...] 9:00 AM EDT Office Visit Adult Medicine [address] [phone] Miguel Morrison, PA Diabetes mellitus type 2 with neurological [...] V24, CMS/HCC V28) 09/28/2024 Telephone Gastroenterology - [place] [address] [place] [address] Chamisal PattiOMEGA 09/13/2024 9:00 AM EDT Consult Gastroenterology - [place] [address] [place] [address] Josee Andrade, INSPECTION MANAGER Iron deficiency anemia, unspecified iron deficiency anemia type (Primary Dx) 09/13/2024 Telephone Gastroenterology - [address] [place] [address] Josee Andrade, ANABELA from Last 3 Months Immunizations Immunization Administration Dates Next Due H1N1 Inj Preservative [...] Date Site/Laterality Comments OTHER SURGICAL HISTORY PROCEDURE: [place] MADRID FACETECTOMY & FORAMOTOMY 1 VRT SGM [...] kidney disease) stage 3, GFR 30-59 ml/min ([facility] V24, [facility] V28) 05/06/2010 DX:CKD (chronic kidney disea se) stage 3, GFR 30-59 ml/min ([facility]) Congestive heart failure (CH F) ([facility] V24, [facility] V28) 07/07/2012 DX:Congestive heart failure (CHF) ([facility]); COMMENT: ECHO: 06/2012: LVEF 60-65%, no focal wall motion abnormalitis, moderate diastolic dysfunction with dilated right ventricle and increased LA pressure, mod-severe pulm htn and mode/severe MS. Depressive disorder 09/07/2008 DX:Depressiv e disorder Diabetes mellitus type 2 wit h neurological manifestations ([facility] V24, [facility] V28) 03/19/2015 DX:Diabetes mellitus type 2 with neurological manifestations ([facility]) Gout 09/25/2005 DX:Gout Hyperlipidemia 02/24/2014 DX:Hyperlipidemi a Hypertension 03/13/2005 DX:Hypertension LAP-BAND surgery status 10/06/2016 DX:LAP-B AND surgery status Lumbosacral spondylosis with out myelopathy 02/05/2005 DX:Lumbosacral spondylosis w ithout myelopathy; COMMENT: SX x 2 Lung nodules 08/25/2012 DX:Lung nodules; COMMENT: Multiple low suspicion lung nodules. Previous smoker, will repeat in 1 year for follow up( due in 07/2013) Microalbuminuria 05/06/2010 DX:Microalbumin uria COPD, moderate ([facility] V24, [facility] V28) 05/29/2010 DX:COPD, moderate ([facility]); COM MENT: last PFTs 03/2009; on 2.5-3 L portable oxygen with activity Morbid obesity ([facility] V24, [facility] V28) 10/02/2010 DX:Morbid obesity (HCC) Obstructive sleep apnea 08/09/2009 DX:Obstr uctive sleep apnea; COMMENT: Has mask Used infreeequently S/P mitral valve replacement 10/26/2012 DX: S/P mitral valve replacement; COMMENT: 09/2012 Dr. Garay Status post hip replacement 05/06/2010 DX:S tatus post hip replacement Type 2 diabetes mellitus wit h renal manifestations, controlled ([facility] V24, [facility] V28) 12/15/2012 DX:Type 2 diabetes mellitus with renal manifestations, controlled ([facility]) Family History Medical History Relation Name Comments [...] for your loved ones. For example, child watch attendant or elderly care for an older [...] Sign Reading Time Taken Comments Blood Pressure 128/70 11/17/2024 12:42 PM EDT Pulse 70 11/17/2024 12:42 PM EDT Temperature 36.1 C (97 F) 10/14/2024 9:12 AM EDT Respiratory Rate 13 10/14/2024 9:12 AM EDT Oxygen Saturation 97% 11/17/2024 12:42 PM EDT Inhaled Oxygen Concentration - - Weight 79.4 kg (175 lb) 11/17/2024 12:42 PM EDT Height 152.4 cm (5') 11/17/2024 12:42 PM EDT Body Mass Index 34.18 11/17/2024 12:42 PM EDT Plan of Treatment Upcoming Encounters Date Type Department Care Team (Late st Contact Info) Description 11/29/2024 9:00 AM EDT Office Visit [facility] - [place] [address] [place], [place] [phone] Lexi De Oliveira PA [address] [place], [place] 12/27/2024 2:15 PM EDT Office Visit Orthopedic Surgery - [place] [address] [phone] Manolo Trammell DPM [address] [phone] 01/02/2025 8:00 AM EST Appointment [facility] Endoscopy [address] [place] [phone] Rylan Castillo DO [address] [address] 01/30/2025 9:45 AM EST Office Visit Pulmonology - [place] [address] [phone] Jose Guillen MD [address] [id number] 08/10/2025 1:00 PM EDT Office Visit Nephrology - [place] [address] [place], [place] [phone] Karthik Marroquin MD 3550 [facility] [address] [place] [phone] Health Maintenance Due Date Last Done Comments Medicare Annual Wellness Visit 02/08/2022 Diabetes: Annual Foot Exam 10/08/2024 10/09/2023 COVID-19 Vaccine ( season) 2024 12/18/2021, 07/31/2021, 01/03/2021, Additional history exists Influenza Vaccine (#1) 2024 , 12/09/2021, 11/16/2019, Additional history exists Falls Risk Assessment 03/09/2025 03/09/2024 Diabetes: Blood Sugar Control Test (HGBA1C) 04/14/2025 10/12/2024, 07/06/2024, 03/09/2024, Additional history exists Diabetes: Annual Retina Eye Exam 10/03/2025 10/03/2024, 10/08/2023 Diabetes: Annual Urine Albumin-Creatinine Ratio (uACR) 10/12/2025 10/12/2024, 07/06/2024, 03/09/2024, Additional history exists Social Influencers of Health Screening 11/08/2025 11/08/2024 Diabetes: Annual GFR (Glomerular Filtration Rate) 11/22/2025 11/22/2024, 10/12/2024, 07/06/2024, Additional history exists Hypertension/CHF/CAD Annual BMP Blood Test 11/22/2025 11/22/2024, 10/12/2024, 07/06/2024, Additional history exists DTaP,Tdap,and Td Vaccines (4 [...] on patient's age to complete this topic Goals Goal Patient Goal Type Associated Problems Recent Progress Patient-Stated? Author Adherence to Treatment Plan General No Na Talbert, RN Note: To to weigh herself daily Pt to continue to follow a low salt diet Procedures Procedure Name Priority Date/Time Associated Diagnosis Comments BASIC METABOLIC PANEL Routine 11/22/2024 2:18 PM EDT Chronic diastolic congestive heart failure ([facility] V24, CMS/[facility] V28) Primary hypertension MAGNESIUM Routine 11/22/2024 2:18 PM EDT Chronic diastolic congestive heart failure (CMS/HCC V24, CMS/HCC V28) Primary hypertension EXTERNAL CLINICAL LAB 11/01/2024 MR LUMBAR SPINE WO CONTRAST Routine 10/26/2024 6:22 PM EDT Low back pain without sciatica, unspecified back pain laterality, unspecified chronicity Dysuria Stage 3 chronic kidney disease, unspecified whether stage 3a or 3b CKD (CMS/HCC V24, CMS/HCC V28) COPD, moderate (CMS/HCC V24, CMS/HCC V28) Depression, unspecified depression type Diabetes mellitus type 2 with neurological manifestations (CMS/HCC V24, CMS/HCC V28) Hyperlipidemia, unspecified hyperlipidemia type Gout, unspecified cause, unspecified chronicity, unspecified site Primary hypertension Hyperparathyroidism (CMS/[facility] V24) Microalbuminuria Obstructive sleep apnea Paroxysmal atrial fibrillation (CMS/[facility] V24, CMS/[facility] V28) Pulmonary hypertension (CMS/[facility] V24, CMS/[facility] V28) EXTERNAL CT REPORT 10/19/2024 URINALYSIS WITH REFLEX MICROSCOPIC Routine 10/14/2024 10:32 AM EDT Low back pain without sciatica, unspecified back pain laterality, unspecified chronicity Dysuria Stage 3 chronic kidney disease, unspecified whether stage 3a or 3b CKD ([facility] V24, [facility] V28) COPD, moderate ([facility] V24, [facility] V28) Depression, unspecified depression type Diabetes mellitus type 2 with neurological manifestations ([facility] V24, [facility] V28) Hyperlipidemia, unspecified hyperlipidemia type Gout, unspecified cause, unspecified chronicity, unspecified site Primary hypertension Hyperparathyroidism ([facility] V24) Microalbuminuria Obstructive sleep apnea Paroxysmal atrial fibrillation ([facility] V24, [facility] V28) Pulmonary hypertension ([facility] V24, [facility] V28) URINALYSIS WITH REFLEX MICROSCOPIC Routine 10/14/2024 10:32 AM EDT Low back pain without sciatica, unspecified back pain laterality, unspecified chronicity Dysuria Stage 3 chronic kidney disease, unspecified whether stage 3a or 3b CKD ([facility] V24, [facility] V28) COPD, moderate ([facility] V24, [facility] V28) Depression, unspecified depression type Diabetes mellitus type 2 with neurological manifestations ([facility] V24, [facility] V28) Hyperlipidemia, unspecified hyperlipidemia type Gout, unspecified cause, unspecified chronicity, unspecified site Primary hypertension Hyperparathyroidism ([facility] V24) Microalbuminuria Obstructive sleep apnea Paroxysmal atrial fibrillation ([facility] V24, [facility] V28) Pulmonary hypertension ([facility] V24, [facility] V28) XR LUMBAR SPINE 4+ VIEWS Routine 10/14/2024 10:08 AM EDT Low back pain without sciatica, unspecified back pain laterality, unspecified chronicity Dysuria Stage 3 chronic kidney disease, unspecified whether stage 3a or 3b CKD ([facility] V24, [facility] V28) COPD, moderate ([facility] V24, [facility] V28) Depression, unspecified depression type Diabetes mellitus type 2 with neurological manifestations ([facility] V24, [facility] V28) Hyperlipidemia, unspecified hyperlipidemia type Gout, unspecified cause, unspecified chronicity, unspecified site Primary hypertension Hyperparathyroidism ([facility] V24) Microalbuminuria Obstructive sleep apnea Paroxysmal atrial fibrillation (CMS/HCC V24, CMS/HCC V28) Pulmonary hypertension (CMS/HCC V24, CMS/HCC V28) CBC WITH AUTO DIFFERENTIAL Routine 10/12/2024 10:35 AM EDT Stage 3 chronic kidney disease, unspecified whether stage 3a or 3b CKD ([facility]/HCC V24, [facility]/HCC V28) COPD, moderate ([facility]/HCC V24, [facility]/HCC V28) Depression, unspecified depression type Diabetes mellitus type 2 with neurological manifestations ([facility]/HCC V24, CMS/[facility] V28) Gout, unspecified cause, unspecified chronicity, unspecified site Hyperparathyroidism ([facility]/HCC V24) Primary hypertension Hyperlipidemia, unspecified hyperlipidemia type Diastolic congestive heart failure, unspecified HF chronicity ([facility]/HCC V24, CMS/HCC V28) Pulmonary hypertension ([facility]/HCC V24, CMS/HCC V28) Paroxysmal atrial fibrillation ([facility] V24, CMS/HCC V28) Obstructive sleep apnea Typical atrial flutter ([facility] V24, CMS/HCC V28) URIC ACID Routine 10/12/2024 10:35 AM EDT Stage 3 chronic kidney disease, unspecified whether stage 3a or 3b CKD ([facility]/HCC V24, [facility]/HCC V28) COPD, moderate (CMS/HCC V24, CMS/HCC V28) Depression, unspecified depression type Diabetes mellitus type 2 with neurological manifestations ([facility]/HCC V24, [facility]/HCC V28) Gout, unspecified cause, unspecified chronicity, unspecified site Hyperparathyroidism ([facility]/HCC V24) Primary hypertension Hyperlipidemia, unspecified hyperlipidemia type Diastolic congestive heart failure, unspecified HF chronicity (CMS/HCC V24, CMS/HCC V28) Pulmonary hypertension (CMS/HCC V24, CMS/HCC V28) Paroxysmal atrial fibrillation (CMS/HCC V24, CMS/HCC V28) Obstructive sleep apnea Typical atrial flutter ([facility]/HCC V24, CMS/HCC V28) PARATHYROID HORMONE INTACT Routine 10/12/2024 10:35 AM EDT Stage 3 chronic kidney disease, unspecified whether stage 3a or 3b CKD ([facility]/HCC V24, [facility] V28) COPD, moderate (CMS/HCC V24, CMS/HCC V28) Depression, unspecified depression type Diabetes mellitus type 2 with neurological manifestations ([facility] V24, [facility] V28) Gout, unspecified cause, unspecified chronicity, unspecified site Hyperparathyroidism ([facility] V24) Primary hypertension Hyperlipidemia, unspecified hyperlipidemia type Diastolic congestive heart failure, unspecified HF chronicity ([facility] V24, [facility] V28) Pulmonary hypertension ([facility] V24, [facility]/HCC V28) Paroxysmal atrial fibrillation ([facility] V24, [facility] V28) Obstructive sleep apnea Typical atrial flutter ([facility] V24, [facility] V28) CBC AND DIFFERENTIAL Routine 10/12/2024 10:35 AM EDT Stage 3 chronic kidney disease, unspecified whether stage 3a or 3b CKD ([facility] V24, [facility] V28) COPD, moderate ([facility] V24, [facility] V28) Depression, unspecified depression type Diabetes mellitus type 2 with neurological manifestations ([facility] V24, [facility] V28) Gout, unspecified cause, unspecified chronicity, unspecified site Hyperparathyroidism ([facility] V24) Primary hypertension Hyperlipidemia, unspecified hyperlipidemia type Diastolic congestive heart failure, unspecified HF chronicity ([facility] V24, [facility] V28) Pulmonary hypertension ([facility] V24, [facility] V28) Paroxysmal atrial fibrillation ([facility] V24, [facility] V28) Obstructive sleep apnea Typical atrial flutter ([facility] V24, [facility] V28) IRON AND TIBC Routine 10/12/2024 10:35 AM EDT Stage 3 chronic kidney disease, unspecified whether stage 3a or 3b CKD ([facility] V24, [facility] V28) COPD, moderate ([facility] V24, [facility] V28) Depression, unspecified depression type Diabetes mellitus type 2 with neurological manifestations ([facility] V24, [facility] V28) Gout, unspecified cause, unspecified chronicity, unspecified site Hyperparathyroidism ([facility] V24) Primary hypertension Hyperlipidemia, unspecified hyperlipidemia type Diastolic congestive heart failure, unspecified HF chronicity ([facility] V24, [facility] V28) Pulmonary hypertension ([facility] V24, [facility] V28) Paroxysmal atrial fibrillation ([facility] V24, [facility] V28) Obstructive sleep apnea Typical atrial flutter ([facility] V24, [facility] V28) HEMOGLOBIN A1C Routine 10/12/2024 10:35 AM EDT Stage 3 chronic kidney disease, unspecified whether stage 3a or 3b CKD ([facility] V24, [facility] V28) COPD, moderate ([facility] V24, [facility] V28) Depression, unspecified depression type Diabetes mellitus type 2 with neurological manifestations ([facility] V24, [facility] V28) Gout, unspecified cause, unspecified chronicity, unspecified site Hyperparathyroidism ([facility] V24) Primary hypertension Hyperlipidemia, unspecified hyperlipidemia type Diastolic congestive heart failure, unspecified HF chronicity ([facility] V24, [facility] V28) Pulmonary hypertension ([facility] V24, [facility] V28) Paroxysmal atrial fibrillation ([facility] V24, [facility] V28) Obstructive sleep apnea Typical atrial flutter ([facility] V24, [facility] V28) COMPREHENSIVE METABOLIC PANEL Routine 10/12/2024 10:35 AM EDT Stage 3 chronic kidney disease, unspecified whether stage 3a or 3b CKD ([facility] V24, [facility] V28) COPD, moderate ([facility] V24, [facility] V28) Depression, unspecified depression type Diabetes mellitus type 2 with neurological manifestations ([facility] V24, [facility] V28) Gout, unspecified cause, unspecified chronicity, unspecified site Hyperparathyroidism ([facility] V24) Primary hypertension Hyperlipidemia, unspecified hyperlipidemia type Diastolic congestive heart failure, unspecified HF chronicity ([facility] V24, [facility] V28) Pulmonary hypertension ([facility] V24, [facility] V28) Paroxysmal atrial fibrillation ([facility] V24, [facility] V28) Obstructive sleep apnea Typical atrial flutter ([facility] V24, [facility] V28) MICROALBUMIN CREATININE URINE RATIO Routine 10/12/2024 10:35 AM EDT Stage 3 chronic kidney disease, unspecified whether stage 3a or 3b CKD ([facility] V24, [facility] V28) COPD, moderate ([facility] V24, [facility] V28) Depression, unspecified depression type Diabetes mellitus type 2 with neurological manifestations ([facility] V24, [facility] V28) Gout, unspecified cause, unspecified chronicity, unspecified site Hyperparathyroidism ([facility] V24) Primary hypertension Hyperlipidemia, unspecified hyperlipidemia type Diastolic congestive heart failure, unspecified HF chronicity ([facility] V24, [facility] V28) Pulmonary hypertension ([facility] V24, [facility] V28) Paroxysmal atrial fibrillation ([facility] V24, [facility] V28) Obstructive sleep apnea Typical atrial flutter ([facility] V24, [facility] V28) LIPID PANEL WITH REFLEX TO DIRECT LDL Routine 10/12/2024 10:35 AM EDT Stage 3 chronic kidney disease, unspecified whether stage 3a or 3b CKD ([facility] V24, [facility] V28) COPD, moderate ([facility] V24, [facility] V28) Depression, unspecified depression type Diabetes mellitus type 2 with neurological manifestations ([facility] V24, [facility] V28) Gout, unspecified cause, unspecified chronicity, unspecified site Hyperparathyroidism ([facility] V24) Primary hypertension Hyperlipidemia, unspecified hyperlipidemia type Diastolic congestive heart failure, unspecified HF chronicity ([facility] V24, [facility] V28) Pulmonary hypertension ([facility] V24, [facility] V28) Paroxysmal atrial fibrillation ([facility] V24, [facility] V28) Obstructive sleep apnea Typical atrial flutter ([facility] V24, [facility] V28) EXTERNAL DIABETIC RETINA EYE EXAM 10/03/2024 DXA BONE DENSITY STUDY 1+ SITS AXIAL SKEL Routine 08/12/2017 10:37 AM EDT Encounter for screening for osteoporosis Stage 3 chronic kidney disease ([facility] V24, [facility] V28) Hyperparathyroidism, unspecified ([facility] V24) from Last 3 Months or Most Recently Relevant to Health Maintenance Results * (ABNORMAL) Magnesium (11/22/2024 2:18 PM EDT) [facility] Signature Magnesium 1.7(L) 1.9 - 2.6 mg/dL LAB CHEMISTRY METHOD 11/22/2024 4:58 PM T [facility] Blood Venous blood specimen / Unknown Venipuncture / Unknown 11/22/2024 2:18 PM EDT 11/22/2024 2:18 PM EDT Shari Guerrero INSPECTION MANAGER LAB BLOOD ORDERABLES Final Result [facility] [address] [place] [address], [place] [phone] * Basic metabolic panel (11/22/2024 2:18 PM EDT) Sodium 140 133 - 145 mmol/L LAB CHEMISTRY METHOD 11/22/2024 4:58 PM [facility] Potassium 3.8 3.5 - 5.5 mmol/L LAB CHEMISTRY METHOD 11/22/2024 4:58 PM [facility] Chloride 102 96 - 110 mmol/L LAB CHEMISTRY METHOD 11/22/2024 4:58 PM [facility] CO2 30 21 - 32 mmol/L LAB CHEMISTRY METHOD 11/22/2024 4:58 PM [facility] Anion Gap 8 3 - 11 LAB CHEMISTRY METHOD 11/22/2024 4:58 PM [facility] Glucose 85 70 - 100 mg/dL LAB CHEMISTRY METHOD 11/22/2024 4:58 PM [facility] BUN 12 5 - 25 mg/dL LAB CHEMISTRY METHOD 11/22/2024 4:58 PM [facility] Creatinine 0.85 0.50 - 1.10 mg/dL LAB CHEMISTRY METHOD 11/22/2024 4:58 PM [facility] eGFR 69 >=60 mL/min/1. 73m2 LAB CHEMISTRY METHOD 11/22/2024 4:58 PM EDT [facility] Comment:Calculation based on the Chronic Kidney Disease Epidemiology Collaboration (CKD-EPI) equation refit without adjustment for race. BUN/Creatinine Ratio 14.1 LAB CHEMISTRY METHOD 11/22/2024 4:58 PM EDT [facility] Calcium 9.8 8.5 - 10.5 mg/dL LAB CHEMISTRY METHOD 11/22/2024 4:58 PM EDT [facility] Blood Venous blood specimen / Unknown Venipuncture / Unknown 11/22/2024 2:18 PM EDT 11/22/2024 2:18 PM EDT Shari Guerrero NP LAB BLOOD ORDERABLES Final Result [facility] [address] [place] [address], [place] [phone] * External clinical lab (11/01/2024) Provider [facility] LAB BLOOD ORDERABLES Fin al Result * MR Lumbar Spine wo Contrast (10/26/2024 [...] Signed Date: 10/27/2024 17:39 ET Workstation ID: [id number] Transcribed By: Self Edit Transcribed Date: 10/27/2024 [...] Signed Date: 10/27/2024 17:39 ET Workstation ID: [id number] Transcribed By: Self Edit Transcribed Date: 10/27/2024 09:13 ET Miguel KWON IM MRI PROCEDURES Final Result * External CT Report (10/19/2024) Anatomical Region Laterality Modality Computed Tomogra phy Provider [facility] IMG CT PROCEDURES Final Result * (ABNORMAL) Urinalysis with reflex microscopic (10/14/2024 10:32 AM EDT) Specific [place] Urine 1.014 1.003 - 1.030 LAB URINALYSIS - AUTOMATED METHOD 10/14/2024 12:00 PM [facility] pH, Urine 6.0 5.0 - 8.0 pH LAB URINALYSIS - AUTOMATED METHOD 10/14/2024 12:00 PM [facility] Leukocytes, Urine Trace(A) Negative LAB URINALYSIS - AUTOMATED METHOD 10/14/2024 12:00 PM [facility] Nitrite, Urine Negative Negative LAB URINALYSIS - AUTOMATED METHOD 10/14/2024 12:00 PM [facility] Protein, Urine Trace <=Trace mg/dL LAB URINALYSIS - AUTOMATED METHOD 10/14/2024 12:00 PM [facility] Glucose, Urine Negative Negative mg/dL LAB URINALYSIS - AUTOMATED METHOD 10/14/2024 12:00 PM [facility] Ketones, Urine Negative Negative mg/dL LAB URINALYSIS - AUTOMATED METHOD 10/14/2024 12:00 PM [facility] Urobilinogen, Urine 0.2 0.2 - 1.0 mg/dL LAB URINALYSIS - AUTOMATED METHOD 10/14/2024 12:00 PM [facility] Bilirubin, Urine Negative Negative LAB URINALYSIS - AUTOMATED METHOD 10/14/2024 12:00 PM EDT [facility] Blood, Urine Negative Negative LAB URINALYSIS - AUTOMATED METHOD 10/14/2024 12:00 PM EDT [facility] RBC, Urine 2.6 0 - 4 /HPF LAB URINALYSIS - AUTOMATED METHOD 10/14/2024 12:00 PM EDT [facility] WBC, Urine 6.8(H) 0 - 4 /HPF LAB URINALYSIS - AUTOMATED METHOD 10/14/2024 12:00 PM EDT [facility] Squamous Epithelial, Urine >100(H) 0 - 60 /LPF LAB URINALYSIS - AUTOMATED METHOD 10/14/2024 12:00 PM EDT [facility] Bacteria, Urine Negative Negative /HPF LAB URINALYSIS - AUTOMATED METHOD 10/14/2024 12:00 PM [facility] Hyaline Casts, Urine 1.6 0 - 3 /LPF LAB URINALYSIS - AUTOMATED METHOD 10/14/2024 12:00 PM T [facility] Urine Urine specimen obtained by clean catch procedure / Unknown Non-blood Collection / Unknown 10/14/2024 10:32 AM EDT 10/14/2024 10:32 AM EDT Miguel KWON LAB URINE ORDERABLES Dede l Result [facility] [address] [place] [address], * XR Lumbar Spine 4+ Views (10/14/2024 10:08 AM EDT) Anatomical Region Laterality Modality Spine, L-spine Radiographic Sravanthi ging 10/14/2024 11:5 3 AM EDT Impressions 10/14/2024 12:01 PM EDT Scoliosis. Extensive degenerative changes. Grade 1 spondylolisthesis at L4-5. POS - [id number] -------- FINAL REPORT -------- Dictated By: Lorena Conroy Dictated Date: 10/14/2024 11:53 ET Assigned Physician: Lorena Conroy Reviewed and Electronically Signed By: Lorena Conroy Signed Date: 10/14/2024 12:01 ET Workstation ID: [id number] Transcribed By: Self Edit Transcribed Date: 10/14/2024 [...] Partially imaged right hip prosthesis. Procedure Note Lorena Conroy MD - 10/14/2024 EXAM: Lumbar spine [...] changes. Grade 1 spondylolisthesis atL4-5. POS - [id number] -------- FINAL REPORT -------- Dictated By: Lorena Conroy Dictated Date: 10/14/2024 11:53 ET Assigned Physician: Lorena Conroy Reviewed and Electronically Signed By: Lorena Conroy Signed Date: 10/14/2024 12:01 ET Workstation ID: [id number] Transcribed By: Self Edit Transcribed Date: 10/14/2024 11:53 ET Miguel KWON IMG XR PROCEDURES Final R esult * Lipid panel with reflex to direct LDL (10/12/2024 10:35 AM EDT) Cholesterol 141 0 - 200 mg/dL LAB CHEMISTRY METHOD 10/12/2024 3:23 PM EDT [facility] Triglycerides 104 0 - 150 mg/dL LAB CHEMISTRY METHOD 10/12/2024 3:23 PM EDT [facility] HDL 68 >=40 mg/dL LAB CHEMISTRY METHOD 10/12/2024 3:23 PM EDT [facility] LDL Calculated 52 0 - 100 mg/dL LAB CHEMISTRY METHOD 10/12/2024 3:23 PM EDT [facility] [facility] Comment:Estimated LDL Calcul ated using equation: Total cholesterol - HDL cholesterol - (Triglycerides/5) VLDL Cholesterol Jonathan 20.8 mg/dL LAB CHEMISTRY METHOD 10/12/2024 3:23 PM EDT [facility] Non HDL Chol. (LDL+VLDL) 73 <145 mg/dL LAB CHEMISTRY METHOD 10/12/2024 3:23 PM EDT [facility] Chol/HDL Ratio 2.1 0.0 - 4.4 LAB CHEMISTRY METHOD 10/12/2024 3:23 PM EDT [facility] Blood Venous blood specimen / Unknown Venipuncture / Unknown 10/12/2024 10:35 AM EDT 10/12/2024 10:35 AM EDT Miguel KWON LAB BLOOD ORDERABLES Dede l Result [facility] [address] [place] [address], [place] [phone] * (ABNORMAL) CBC auto differential (10/12/2024 10:35 AM EDT) [facility] WBC 14.8(H) 4.8 - 10.8 K/mcL LAB HEMETOLOGY METHOD 10/12/2024 1:53 PM [facility] RBC 4.20 3.80 - 4.80 M/mcL LAB HEMETOLOGY [facility] Hemoglobin 12.3 11.5 - 16.0 g/dL LAB HEMETOLOGY METHOD 10/12/2024 1:53 PM [facility] Hematocrit 39.6 35.0 - 47.0 % LAB HEMETOLOGY METHOD 10/12/2024 1:53 PM [facility] MCV 93.6 79.0 - 98.0 FL LAB HEMETOLOGY METHOD 10/12/2024 1:53 PM [facility] MCH 29.1 27.0 - 32.0 pcg LAB HEMETOLOGY METHOD 10/12/2024 1:53 PM [facility] MCHC 31.1(L) 32.0 - 37.0 g/dL LAB HEMETOLOGY METHOD 10/12/2024 1:53 PM [facility] RDW 17.7(H) 11.0 - 15.0 % LAB HEMETOLOGY METHOD 10/12/2024 1:53 PM [facility] Platelets 279 130 - 400 K/mcL LAB HEMETOLOGY METHOD 10/12/2024 1:53 PM [facility] MPV 11.5(H) 7.0 - 11.0 FL LAB HEMETOLOGY METHOD 10/12/2024 1:53 PM [facility] NRBC 0.0 <1.0 % LAB HEMETOLOGY METHOD [facility]24 [facility] NRBC Absolute 0.00 <0.10 K/mcL LAB HEMETOLOGY METHOD 10/12/2024 1:53 PM EDT [facility] Neutrophils Relative 72.5 % LAB HEMETOLOGY METHOD 10/12/2024 1:53 PM [facility] Lymphocytes Relative 15.4 % LAB HEMETOLOGY METHOD 10/12/2024 1:53 [facility] Monocytes Relative 9.4 % LAB HEMETOLOGY METHOD 10/12/2024 1:53 PM [facility] Eosinophils Relative 2.0 % LAB HEMETOLOGY METHOD 10/12/2024 1:53 PM [facility] Basophils Relative 0.3 % LAB HEMETOLOGY METHOD 10/12/2024 1:53 PM [facility] Immature Granulocytes Relative 0.4 % LAB HEMETOLOGY METHOD 10/12/2024 1:53 PM [facility] Neutrophils Absolute 10.70(H) 1.50 - 7.00 K/mcL LAB HEMETOLOGY METHOD 10/12/2024 1:53 PM [facility] Lymphocytes Absolute 2.27 1.00 - 5.00 K/mcL LAB HEMETOLOGY METHOD 10/12/2024 1:53 PM [facility] Monocytes Absolute 1.38(H) 0.20 - 1.00 K/mcL LAB HEMETOLOGY METHOD 10/12/2024 1:53 PM [facility] Eosinophils Absolute 0.29 0.00 - 0.50 K/mcL LAB HEMETOLOGY METHOD 10/12/2024 1:53 PM [facility] Basophils Absolute 0.05 0.00 - 0.20 K/mcL LAB HEMETOLOGY METHOD 10/12/2024 1:53 PM [facility] Immature Granulocytes Absolute 0.06(H) 0.00 - 0.03 K/mcL LAB HEMETOLOGY METHOD 10/12/2024 1:53 PM EDT [facility] Blood Venous blood specimen / Unknown Venipuncture / Unknown 10/12/2024 10:35 AM EDT 10/12/2024 10:35 AM EDT Miguel KWON LAB BLOOD ORDERABLES Dede l Result Performing Organization Address [facility] de Phone Number [facility] [address] [place] [address], [place] [phone] * (ABNORMAL) Iron and TIBC (10/12/2024 10:35 AM EDT) Iron 47 40 - 150 mcg/dL LAB CHEMISTRY METHOD 10/12/2024 3:23 PM EDT [facility] TIBC 351 250 - 450 mcg/dL LAB CHEMISTRY METHOD 10/12/2024 3:23 PM EDT [facility] Iron Saturation 13(L) 15 - 50 % LAB CHEMISTRY METHOD 10/12/2024 3:23 PM EDT [facility] Blood Venous blood specimen / Unknown Venipuncture / Unknown 10/12/2024 10:35 AM EDT 10/12/2024 10:35 AM EDT Miguel KWON LAB BLOOD ORDERABLES Dede l Result Performing Organization Address [facility] de Phone Number [facility] [address] [place] [address], [place] [phone] * (ABNORMAL) Microalbumin creatinine urine ratio (10/12/2024 10:35 AM EDT) Creatinine, Urine 85.0 mg/dL LAB CHEMISTRY METHOD 10/12/2024 2:39 PM EDT [facility] Microalb, Ur 80.3(H) 0.0 - 29.0 mg/L LAB CHEMISTRY METHOD 10/12/2024 2:39 PM EDT [facility] Microalb/Crea t Ratio 94(H) <30 mg/g creat LAB CHEMISTRY METHOD 10/12/2024 2:39 PM EDT [facility] Urine Urine specimen obtained by clean catch procedure / Unknown Non-blood Collection / Unknown 10/12/2024 10:35 AM EDT 10/12/2024 10:35 AM EDT iMguel KWON LAB URINE ORDERABLES Dede l Result Performing Organization Address [facility]/ZIP Co de Phone Number [facility] [address] [place] [address], * Uric acid (10/12/2024 10:35 AM EDT) Uric Acid 3.5 3.1 - 7.8 mg/dL LAB CHEMISTRY METHOD 10/12/2024 3:23 PM EDT [facility] Blood Venous blood specimen / Unknown Venipuncture / Unknown 10/12/2024 10:35 AM EDT 10/12/2024 10:35 AM EDT Miguel KWON LAB BLOOD ORDERABLES Dede l Result Performing Organization Address [facility]/ZIP Co de Phone Number [facility] [address] [place] [address], [place] [phone] * Parathyroid hormone intact (10/12/2024 10:35 AM EDT) PTH 68.7 18.5 - 88.0 pcg/mL LAB CHEMISTRY METHOD 10/12/2024 4:29 PM EDT [facility] Blood Venous blood specimen / Unknown Venipuncture / Unknown 10/12/2024 10:35 AM EDT 10/12/2024 10:35 AM EDT Miguel KWON LAB BLOOD ORDERABLES Dede l Result Performing Organization Address City/[facility]/ZIP Co de Phone Number [facility] [address] [place] [address], * Hemoglobin A1c (10/12/2024 10:35 AM EDT) [facility] Hemoglobin A1C 5.8 <6.5 % LAB CHEMISTRY METHOD 10/12/2024 3:09 PM EDT [facility] Mean Bld Glu Estim. 120 mg/dL LAB CHEMISTRY METHOD 10/12/2024 3:09 PM EDT [facility] Blood Venous blood specimen / Unknown Venipuncture / Unknown 10/12/2024 10:35 AM EDT 10/12/2024 10:35 AM EDT Miguel KWON LAB BLOOD ORDERABLES Dede l Result Performing Organization Address [facility]/ZIP Co de Phone Number [facility] [address] [place] [address], [place] [phone] * (ABNORMAL) Comprehensive metabolic panel (10/12/2024 10:35 AM EDT) [facility] Sodium 141 133 - 145 mmol/L LAB CHEMISTRY METHOD 10/12/2024 3:30 PM EDT [facility] Potassium 4.2 3.5 - 5.5 mmol/L LAB CHEMISTRY METHOD 10/12/2024 3:30 PM EDT [facility] Chloride 107 96 - 110 mmol/L LAB CHEMISTRY METHOD 10/12/2024 3:30 PM EDT [facility] CO2 29 21 - 32 mmol/L LAB CHEMISTRY METHOD 10/12/2024 3:30 PM EDT [facility] Anion Gap 5 3 - 11 LAB CHEMISTRY METHOD [facility] Glucose 88 70 - 100 mg/dL LAB CHEMISTRY METHOD 10/12/2024 3:30 PM [facility] BUN 9 5 - 25 mg/dL LAB CHEMISTRY METHOD 10/12/2024 3:30 PM [facility] Creatinine 1.02 0.50 - 1.10 mg/dL LAB CHEMISTRY METHOD 10/12/2024 3:30 PM [facility] eGFR 55(L) >=60 mL/min/1. 73m2 LAB CHEMISTRY METHOD 10/12/2024 3:30 PM [facility] Comment:Calculation based on the Chronic Kidney Disease Epidemiology Collaboration (CKD-EPI) equation refit without adjustment for race. BUN/Creatinine Ratio 8.8 LAB CHEMISTRY METHOD 10/12/2024 3:30 PM [facility] Calcium 9.9 8.5 - 10.5 mg/dL LAB CHEMISTRY METHOD 10/12/2024 3:30 PM [facility] AST (SGOT) 19 10 - 42 unit/L LAB CHEMISTRY METHOD 10/12/2024 3:30 PM [facility] ALT (SGPT) 22 10 - 60 unit/L LAB CHEMISTRY METHOD 10/12/2024 3:30 PM [facility] Alkaline Phosphatase 139(H) 42 - 121 unit/L LAB CHEMISTRY METHOD 10/12/2024 3:30 PM [facility] Total Protein 6.5 6.0 - 8.0 g/dL LAB CHEMISTRY METHOD 10/12/2024 3:30 PM [facility] Albumin 3.8 3.2 - 5.0 g/dL LAB CHEMISTRY METHOD 10/12/2024 3:30 PM [facility] Total Bilirubin 0.6 0.0 - 1.4 mg/dL LAB CHEMISTRY METHOD 10/12/2024 3:30 PM [facility] Blood Venous blood specimen / Unknown Venipuncture / Unknown 10/12/2024 10:35 AM EDT 10/12/2024 10:35 AM EDT Miguel KWON LAB BLOOD ORDERABLES Dede merissa Result [facility] [address] [place] [address], * External Diabetic Retina Eye Exam Report [...] classified as having normal bone density. The [facility] Department of Internal Medicine recommends using [...] classified as having normal bone density. The [facility] Department of Internal Medicine recommendsusing National [...] Recently Relevant to Health Maintenance Insurance MEDICARE [facility] Care Teams Indirect Sales Representative Relationship Specialty Start Date End Date Miguel Morrison PA [address] [place] [phone] PCP - General Internal Medicine 02/16/20
--- OUTSIDE RECORDS SUMMARY | 2024-11-28 13:44 | XMS_ITS ---
Author Organization [facility] [address] [facility] Address [address] [place] [address] Phone Care Team Providers Care Director Of Vocational Training Name Role Phone Miguel Morrison Primary Care Provider [phone] [phone] Chronic Care Management Status:Ongoing (Active) Start date:10/26/2024 Enrollment date:11/08/2024 Enrollment reason:Referred by Care Team Related social drivers of health:Housing Instability, Food Access & Nutrition, Access to Healthcare, Health Literacy, Financial Risk, Transportation, Social Isolation, Food Risk, Dependent Care, Education, Employment and Income, [place] Health Literacy, Living Situation Case Team Name Relationship Phone Na Talbert RN(Responsible Staff) [employer] Continued Care and Services Coordination
--- OUTSIDE RECORDS SUMMARY | 2024-11-28 13:44 | XMS_ITS ---
Author Organization [facility] [address] [facility] Address [address] [place] [address] Phone Care Team Providers Care Service Center Specialist Name Role Phone Miguel Morrison Primary Care Provider [phone] [phone] Transitional Care Management Status:Closed (Closed) Start date:10/25/2024 Enrollment date:10/25/2024 Enrollment reason:Identified using hospital discharge data End date:11/25/2024 Close reason:Completed program Related social drivers of health:Housing Instability, Food Access & Nutrition, Access to Healthcare, Health Literacy, Financial Risk, Transportation, Social Isolation, Food Risk, Dependent Care, Education, Employment and Income, [place] Health Literacy, Living Situation Continued Care and Services Coordination
--- OUTSIDE RECORDS SUMMARY | 2024-11-28 13:44 | XMS_ITS | Encounter Summary ---
Author Organization [facility] Address [address] [place] [address] Care Team Providers Care Talent Acquisition Partner Name Role Phone Miguel Morriosn Primary Care Provider [phone] [phone] Reason for Visit * Reason Onset Date Comments faxed order 11/18/2024 Moustapha A - #[id number], #[id number] Encounter Details Date Type Department Care Team ([facility] Contact Info) Description 11/18/2024 Telephone Adult Medicine [address] [phone] Miguel Morrison PA [address] [place] [phone] Social History Tobacco Use Types Packs/Day Years [...] for your loved ones. For example, children's service supervisor or elderly care for an older adult? [...] as of this encounter Progress Notes * Frances Stark MA - 11/23/2024 8:59 AM EDT ORDER FAXED BACK ON 11.23.24 Via Right Fax * Ruthann Ward MA - 11/20/2024 6:04 PM EDT Order on dr hazel desk to sign covering for jose calros * Saul Pickering - 11/18/2024 3:13 PM EDT Moustapha FUNG - #[id number], #[id number] orders received. Please sign and fax to [phone] documented in this encounter Plan of Treatment Upcoming Encounters Date Type Department Care Team (Late st Contact Info) Description 11/29/2024 9:00 AM EDT Office Visit Adult Medicine [facility] [address] [place] [address] Lexi De Oliveira PA [address] [place], [place] 12/27/2024 2:15 PM EDT Office Visit Orthopedic Surgery - [place] [address] [phone] Manolo Trammell DPM [address] [phone] 01/02/2025 8:00 AM EST Appointment [facility] Endoscopy [address] [place] [phone] Rylan Castillo DO 175 [facility] [place] [address] [place] [address] 01/30/2025 9:45 AM EST Office Visit Pulmonology - [place] 175 [facility] [address] [place] [phone] Jose Guillen MD 175 [facility] 200 [place] [address] 08/10/2025 1:00 PM EDT Office Visit Nephrology [facility] [address] [place] [address] Karthik Marroquin MD 3550 [facility] [address] [place] [address] documented as of this encounter Goals Goal [...] documented as of this encounter Care Teams Talent Acquisition Partner Relationship Specialty Start Date End Date Miguel Morrison PA [address] [place] [address] PCP - General Internal Medicine 02/16/20 documented as of this encounter
--- OUTSIDE RECORDS SUMMARY | 2024-11-28 13:44 | XMS_ITS | Encounter Summary ---
Author Organization [facility] Address [address] [place] [address] Care Team Providers Care Supervisor Contact Lens Name Role Phone Miguel Morrison Primary Care Provider [phone] [phone] Reason for Visit * Reason Onset Date Comments Home Health Cert 11/20/2024 10/25/24- 5 Encounter Details Date Type Department Care Team (Late st Contact Info) Description 11/20/[address] [facility] [address] [place] [phone] Alphonse Amos MD [address] [place], [place] Social History Tobacco Use Types Packs/Day [...] your loved ones. For example, early childhood lead teacher or elderly care for an older [...] Notes * Frances Stark MA - 11/23/2024 8:36 AM EDT ORDER FAXED BACK ON 11.23.24 Via Right Fax * Ruthann Ward MA - 11/20/2024 6:19 PM EDT [facility] 10/27/24-12/25/[address] hazel desk to sign covering for jose carlos documented in this encounter Plan of Treatment Upcoming Encounters Date Type Department Care Team (Late st Contact Info) Description 11/29/2024 9:00 AM EDT Office Visit Adult Medicine [address] [phone] Lexi De Oliveira PA [address] [place], [place] 12/27/2024 2:15 PM EDT Office Visit Orthopedic Surgery - [place] [address] [phone] Manolo Trammell DPJaved [address] [phone] 01/02/2025 8:00 AM EST Appointment [facility] Endoscopy [address] [place] [phone] Rylan Castillo DO [address] [address] 01/30/2025 9:45 AM EST Office Visit Pulmonology - [place] [address] [phone] Jose Guillen MD [address] [address] 08/10/2025 1:00 PM EDT Office Visit Nephrology - [place] [address] [place] [address] Karthik Marroquin MD [address] [phone] documented as of this encounter Goals Goal [...] documented as of this encounter Care Teams Supervisor Contact Lens Relationship Specialty Start Date End Date Miguel Morrison PA [address] [place] [address] PCP - General Internal Medicine 02/16/20 documented as of this encounter
== END 2024-11-28 12:30 | disposition home or self-care (01) ==
LOC: HO.HVNA 12:29
PROVIDERS: Visit Provider Internal Medicine Cardiovascular Disease
DX: I11.0 Hypertensive heart disease with heart failure (principal); I50.33 Acute on chronic diastolic (congestive) heart failure
CPT/HCPCS: 36415; 80048; 83735; 83880

== ENCOUNTER 2024-12-06 13:31 | Outpatient (REF) | payer MEDICARE, SELFPAY ==
[2024-12-06 13:51] LABS: Anion Gap 13 (12-20); Blood Urea Nitrogen 21 mg/dL (9-16); Calcium 10.7 mg/dL (8.4-10.2); Carbon Dioxide 30 mmol/L (22-29); Chloride 101 mmol/L (96-108); Estimated Glomerular Filt Rate 52; Potassium 4.2 mmol/L (3.3-5.1); Sodium 140 mmol/L (135-145)
--- OUTSIDE RECORDS SUMMARY | 2024-12-06 16:36 | XMS_ITS ---
Author Organization [facility] 444 [facility] Address [address] [place] [address] Phone Care Team Providers Care Hardware Sales Assistant Name Role Phone Miguel Morrison Primary Care Provider [phone] [phone] Chronic Care Management Status:Ongoing (Active) Start date:10/26/2024 Enrollment date:11/08/2024 Enrollment reason:Referred by Care Team Related social drivers of health:Housing Instability, Food Access & Nutrition, Access to Healthcare, [place] Health Literacy, Financial Risk, Transportation, Social Isolation, Food Risk Case Team Name Relationship Phone Na Talbert RN(Responsible Staff) Paleobotanist Continued Care and Services Coordination
--- OUTSIDE RECORDS SUMMARY | 2024-12-06 16:36 | XMS_ITS | Encounter Summary ---
Author Organization [facility] Address [address] [place] [address] Care Team Providers Care Stitchdowns Toe Former Name Role Phone Miguel Morrison Primary Care Provider [phone] Encounter Details Date Type Department Care Team (Late st Contact Info) Description 11/24/2024 Telephone [facility] - [facility] [address] [facility] [address] [place] [address] Lorrie Avalos, ABDOULAYE Social History Tobacco Use Types Packs/Day Years [...] for your loved ones. For example, child attendant or elderly care for an older [...] Refills Last Filled Start Date End Date potassium chloride (KLOR-CON M20) 20 mEq CR tablet Take 1 tablet (20 mEq total) by mouth 2 (two) times a day. Tablet may be swallowed whole (do not crush/chew/suck on) OR broken in half and each half swallowed separately OR dissolved (whole tablet) in ~4 ounces of water (allow ~2 minutes to dissolve, stir well and administer immediately). 60 each 2 11/30/2024 furosemide (LASIX) 40 mg tablet Take 1 tablet (40 mg total) by mouth 2 (two) times a day. 60 each 2 11/30/2024 documented in this encounter Progress Notes * Lorrie Avalos RN - 11/30/2024 1:18 PM EDT Spoke with harish Jones and made him aware of med changes Lasix 40 mg BID KCL 20 MEQ BID and that new scripts sent to pharmacy. Faxed [facility] lab orders. * Belkys Lucas NP - 11/30/2024 12:11 PM EDT Yes please for increased potassium as well Thank you! * Lorrie Avalos RN - 11/30/2024 9:15 AM EDT Spoke with harish Jones and relayed your response and orders. Sent in script lasix 40 mg BID #60 2 rfsas req. Do you still want KCL 20 MEQ increased to BID? Son reports patient ran out of lasix for 5 days. She has been back on KCL 20 MEQ QD x 1 week. BMP ordered and will be faxed to [facility]. Awaiting response from provider regarding KCL. * Belkys Lucas NP - 11/30/2024 7:27 AM EDT Reviewed labs. Renal function and electrolytes with support increase diuretic. Her BNP is elevated at 900, suggesting still some volume on board. Lets have her stay on the 40 mg of furosemide twice daily as a new regular dose for the week and update her labs next week--another BMP. We and follow her symptoms and blood pressure along to determine if she should stay on this dose permanently or if we need to back off. Her potassium is borderline. According to her medication list, looks like she takes 20 mEq of her potassium daily. I like to increase that to 20 mEq twice daily. Does she need new prescriptions for either the furosemide or the potassium at the increased doses? I am happy to send anything wherever. Can you please order a BMP and get it to her [facility] however they feel best? Thank you for your help! * Nettie Montejo MA - 11/29/2024 4:12 PM EDT Labs are scanned in for review * Clovis Murillo RN - 11/29/2024 3:24 PM EDT Called [facility] pt lab and they will be faxing results from labs drawn yesterday. Will scan intoEPIC once available. * Belkys Lucas NP - 11/28/2024 12:35 PM EDT Her lungs [...] RN - 11/25/2024 9:41 AM EDT Called [facility] this AM and scheduled home lab draw for pt on Thursday - BMP, BNP, Mag - resultingagency is [facility]. Called son back this AM. Made aware [...] is aware I will f/u with [facility] services to see if we can [...] to also encourage her to call her jump iron machine presser as recommended at her last visit. No [...] Please also encourage her to call her jump iron machine presser as I recommended at her last visit. FYI, the patient does not have an appointment with me on 11/29/2024; this was canceled by the patient. * Lorrie Avalos RN - 11/24/2024 2:40 PM EDT Images from the original note were not included. See below sent from [facility] Insurance Follow Up Representative. Patient has appt 11/29/24 with SHILPI. Na Talbert RN [facility] [address] [facility]33 minutes ago (2:04 PM) [facility], Pt [...] to be ready at the pharmacy to sampler pickup. Date Daily weight BP O2 sat 11/24 [...] to advise, Thank you Na Talbert RN bending press operator [facility] PH: [phone] Hours: M-F 7:30a-4p documented in this encounter Plan of Treatment Upcoming Encounters Date Type Department Care Team (Late st Contact Info) Description 12/15/2024 9:00 AM EDT Office Visit Adult Medicine [place] [address] [place] [phone] Lexi De Oliveira PA [address] [place], [place] 12/27/2024 2:15 PM EDT Office Visit Orthopedic Surgery - [place] 250 175 [facility] [address] [place] [phone] Manolo Trammell DPJaved 175 [facility] [address] [place] [phone] 01/02/2025 8:00 AM EST Appointment [facility] Endoscopy [address] [place] [phone] Rylan Castillo DO 175 [facility] [address] [place] [address] 01/30/2025 9:45 AM EST Office Visit Pulmonology - [place] 175 [facility] [address] [place] [phone] Jose Guillen MD 175 [facility] [address] [place] [address] 08/10/2025 1:00 PM EDT Office Visit Nephrology [facility] [address] [place], [place] [phone] Karthik Marroquin MD 3550 [facility] [address] [place] [phone] Scheduled Orders Name Type Priority Associated Diagnoses Orde r Schedule Basic metabolic panel Lab Routine Diastolic congestive heart failure, unspecified HF chronicity (CMS/HCC V24, CMS/HCC V28) 1 Occurrences starting 11/25/2024 until 11/24/2025 B-type natriuretic peptide Lab Routine Diastolic congestive heart failure, unspecified HF chronicity (CMS/HCC V24, CMS/HCC V28) 1 Occurrences starting 11/25/2024 until 11/24/2025 Basic metabolic panel Lab Routine Diastolic congestive heart failure, unspecified HF chronicity (CMS/HCC V24, CMS/HCC V28) 1 Occurrences starting 11/30/2024 until 11/30/2025 documented as of this encounter Goals Goal Patient Goal Type Associated Problems Recent Progress Patient-Stated? Author Adherence to Treatment Plan Na Ladd, RN Note: To to weigh herself daily Pt to continue to follow a low salt diet documented as of this encounter Visit Diagnoses Diagnosis Diastolic congestive heart failure, unspecified HF chronicity (CMS/[facility] V24, CMS/[facility] V28)- Primary documented in this encounter Discontinued Medications Medication Sig Discontinue Reason Start Date End Da te furosemide (LASIX) 40 mg tablet TAKE 1 TABLET DAILY 09/26/2024 11/30/2024 potassium chloride (MICRO-K) 10 mEq CR capsule Take 2 capsules (20 mEq total) by mouth 1 (one) time each day. 11/15/2024 11/30/2024 documented as of this encounter Additional Health Concerns Assessment Noted Time PHQ-9 Depression Total Score: 0 03/09/19 25 8:56 AM EST documented as of this encounter Care Teams Stitchdowns Toe Former Relationship Specialty Start Date End Date Miguel Morrison PA [address] [place] [phone] PCP - General Internal Medicine 02/16/20 documented as of this encounter
--- OUTSIDE RECORDS SUMMARY | 2024-12-06 16:36 | XMS_ITS | Encounter Summary ---
Author Organization [facility] Address [address] [place] [address] Care Team Providers Care Research Electrician Name Role Phone Miguel Morrison Primary Care Provider [phone] Reason for Visit * Reason Onset Date Comments faxed order 12/06/2024 Moustapha A - #[id number], #[id number] Encounter Details Date Type Department Care Team ([facility] Contact Info) Description 12/06/2024 Telephone Adult Medicine [address] [phone] Miguel Morrison PA [address] [place] [phone] Social History Tobacco Use Types Packs/Day Years [...] your loved ones. For example, children's service worker or elderly care for an older [...] as of this encounter Progress Notes * Saul Pickering - 12/06/2024 9:55 AM EDT Moustapha A - #[id number], #[id number] orders received. Please sign and fax to [phone] documented in this encounter Plan of Treatment Upcoming Encounters Date Type Department Care Team (Late st Contact Info) Description 12/15/2024 9:00 AM EDT Office Visit Adult Medicine [facility] - [place] [address] [place], [place] [phone] Lexi De Oliveira PA [address] [place], [place] 12/27/2024 2:15 PM EDT Office Visit Orthopedic Surgery - [place] [address] [phone] Manolo Trammell DPJaved [address] [phone] 01/02/2025 8:00 AM EST Appointment [facility] [address] [place] [phone] Rylan Castillo DO [address] [address] 01/30/2025 9:45 AM EST Office Visit Pulmonology - [place] [address] [phone] Jose Guillen MD [address] [address] 08/10/2025 1:00 PM EDT Office Visit Nephrology - [place] [address] [place], [place] [phone] Karthik Marroquin MD [address] [phone] documented as of this encounter Goals Goal Patient Goal Type Associated Problems Recent Progress Patient-Stated? Author Adherence to Treatment Plan General Na Hua, RN Note: To to weigh herself daily Pt to continue to follow a low salt diet documented as of this encounter Visit Diagnoses Not on filedocumented in this encounter Additional Health Concerns Active Problems Noted Date Diagnosed Date Autogenerated Problem 12/04/2024 Assessment Noted Time PHQ-9 Depression Total Score: 0 03/09/19 25 8:56 AM EST documented as of this encounter Care Teams Research Electrician Relationship Specialty Start Date End Date Miguel Morrison PA [address] [place] [address] PCP - General Internal Medicine 02/16/20 documented as of this encounter
--- OUTSIDE RECORDS SUMMARY | 2024-12-06 16:36 | XMS_ITS | Clinical Summary ---
Author Organization [facility] [address] [facility] Address [address] [place] [address] Phone Care Team Providers Care Client Relations Representative Name Role Phone Miguel Morrison Primary Care Provider [phone] Allergies Active Allergy Reactions Criticality Noted Date [...] extracorporeal route 1 (one) time each day. 016 Active Autolet lancing device by Not Applicable route. 005 Active ONETOUCH DELICA LANCETS MISC Test blood sugar 3 times daily Active DULoxetine (CYMBALTA) [address] capsule Take 1 capsule (60 mg total) by mouth 1 (one) time each day. 90 capsule 1 01/27/2 025 Active colchicine (COLCRYS) 0.6 mg tablet TAKE 1 TABLET BY MOUTH DAILY NEEDED (FOR GOUT FLARE UP) 90 tablet 1 025 Active buPROPion XL (WELLBUTRIN XL) 300 mg 24 hr tablet Take 1 tablet (300 mg total) by mouth 1 (one) time each day in the morning. 90 tablet 1 025 Active rosuvastatin (CRESTOR) 20 mg tablet Take 1 tablet (20 mg total) by mouth 1 (one) time each day. 90 tablet 3 025 Active dilTIAZem CD (CARDIZEM CD) 180 mg 24 hr capsule Take 1 capsule (180 mg total) by mouth 1 (one) time each day. 90 each 2 025 Active freestyle (FreeStyle Lancets) 28 gauge lancets Use to check blood sugar daily 100 each 12 025 Active blood sugar diagnostic (FreeStyle Lite Strips) test strip Use to check blood sugar daily 100 each Active busPIRone (BUSPAR) 7.5 mg tablet Take 1 tablet (7.5 mg total) by mouth 2 (two) times a day. 180 each Active ferrous sulfate (Slow Fe) 137 mg (45 mg iron) tablet extended release Take 1 tablet by mouth 1 (one) time each day. 90 tablet 025 Active allopurinoL (ZYLOPRIM) 100 mg tablet TAKE 1 TABLET DAILY 90 tablet 3 Active lisinopril (PRINIVIL,ZES TRIL) 40 mg tablet TAKE 1 TABLET DAILY 90 tablet 3 Active Eliquis 5 mg tablet TAKE 1 TABLET TWICE A DAY 90 tablet 7 Active omeprazole (PriLOSEC) [address] capsule TAKE 1 CAPSULE TWICE A DAY 90 capsule Active Additional Information Patient taking differently:20 mg oralDaily, Reported on 11/17/2024 polyethylene glycol (Golytely) 236-22.74-6.7 4 -5.86 gram solution Take 4L by mouth once for one dose. May substitue any PEG. Starting at 2PM the day before your procedure drink 1 8oz glasses at your own pace until you complete half of the gallon. Finish 2nd half of the gallon at 8PM. 4000 mL Active bisacodyL (DULCOLAX) 5 mg EC tablet Take 2 tablets by mouth right before beginning bowel prep. See instructions provided by the office 2 tablet Active Additional Information Patient not taking.Reported on 11/17/2024 blood-glucose meter kit Used to check blood sugar daily 1 each Active lancets lancets Used to check blood sugar daily 100 each 11 Active multivit-min/ ferrous fumarate (MULTI VITAMIN ORAL) Take by mouth. A ctive HYDROcodone-a cetaminophen (NORCO) 5-325 mg per tablet Take 1 tablet by mouth every 6 (six) hours if needed for severe pain. Max Daily Amount: 4 tablets Active magnesium oxide (MAG-OX) 400 mg (241.3 elemental magnesium) tabletIndicat ions:Hypomagn esemia Take 1 tablet (400 mg total) by mouth 1 (one) time each day. 90 each 1 Active furosemide (LASIX) 40 mg tablet Take 1 tablet (40 mg total) by mouth 2 (two) times a day. 60 each 2 Active potassium chloride (KLOR-CON M20) 20 mEq CR tablet Take 1 tablet (20 mEq total) by mouth 2 (two) times a day. Tablet may be swallowed whole (do not crush/chew/suck on) OR broken in half and each half swallowed separately OR dissolved (whole tablet) in ~4 ounces of water (allow ~2 minutes to dissolve, stir well and administer immediately). 60 each 2 Active budesonide-gl ycopyr-formot kyree (Breztri Aerosphere) 160-9-4.8 mcg/actuation HFA aerosol inhaler inhaler INHALE 2 PUFFS INTO THE LUNGS TWICE DAILY FOR 30 DAYS 10.7 g 11 025 2025 Active budesonide-gl ycopyr-formot kyree (Breztri Aerosphere) 160-9-4.8 mcg/actuation HFA aerosol inhaler inhaler Inhale 2 puffs by mouth 1 (one) time each day. 1 each 1 025 2024 Discontinued blood-glucose meter kit 1 each if needed (use to check blood sugar daily). 1 each 025 2024 Discontinued(R eorder) potassium chloride (MICRO-K) 10 mEq CR capsule Take 2 capsules (20 mEq total) by mouth 1 (one) time each day. 180 capsule 3 025 2024 Discontinued(R eorder) furosemide (LASIX) 40 mg tablet TAKE 1 TABLET DAILY 30 tablet 11 025 2024 Discontinued potassium chloride (MICRO-K) 10 mEq CR capsule Take 2 capsules (20 mEq total) by mouth 1 (one) time each day. 180 capsule 025 2024 Discontinued Active Problems Problem Noted [...] As above. Coronary artery disease invo lving nome coronary artery of nome heart without angina pectoris 11/17/2024 Assessment & [...] echocardiogram completed while hospitalized on 10/20/2024 at [facility] showed a significantly increased gradient across the bioprosthetic mitral valve suggestive of significant stenosis; mean gradient was 13 at heart rate of 76 bpm. I have reviewed these findings with Dr. Dobbs who would like to review the echo images from [place] himself; I will reach out to the appropriate folks to get this done. She is aware of the need for antibiotic prophylaxis 30 to 60 minutes prior to dental procedures or cleanings. Acute exacerbation of CHF (c ongestive heart failure) ([facility] V24, [facility] V28) 11/16/2024 Chronic cough 12/22/2023 SOB (shortness [...] have asked her to follow-up with her biopharmaceutical rep for continued evaluation and treatment. We will continue to readdress this as indicated. Pulmonary hypertension ([facility] V24, [facility] V28 ) 11/18/2023 Assessment & Plan (11/18/2024 2:46 PM EDT): Peripheral edema 11/17/2023 Overview (01/04/2024): Last Assessment & Plan: As above; may be related to heart failure but we will evaluate for venous insufficiency with bilateral venous duplex study. Secondary hypercoagulable state ([facility] V24) Assessment & Plan (11/18/2024 2:46 PM EDT): Typical atrial flutter ([facility] V24, [facility] V28 ) 08/21/2021 Arthritis of carpometacarpal (CMC) [...] PM EDT): Diastolic congestive heart f ailure ([facility] V24, [facility] V28) 05/18/2020 Overview (01/04/2024): Last Assessment & [...] panel; Future Magnesium; Future Paroxysmal atrial fibrillation (CMS/[facility] V24, CMS /[facility] V28) 05/18/2020 Overview (01/04/2024): Unsuccessful MARIA ANTONIA [...] or for any head injury. Pulmonary embolism ([facility] V24, [facility] V28) Disease due to severe acute respiratory syndrome coronavirus 2 (SARS-CoV-2) 01/25/2020 Hyperparathyroidism ([facility] V24) 07/09/2017 Diabetes mellitus type 2 wit h neurological manifestations ([facility] V24, [facility] V28) 03/19/2015 Hyperlipidemia 02/24/2014 Overview (01/04/2024): Last [...] on duration rather than intensity. COPD, moderate ([facility] V24, [facility] V28) 2010 Overview (01/04/2024): last PFTs 03/2009; on 2.5-3 L portable oxygen with activity Last Assessment & Plan: I have requested she use her inhalers as ordered, including rescue inhaler, to see if this improves breathing at all. Continue supplemental oxygen with exertion. She will continue to follow with pulmonology. CKD (chronic kidney disease) stage 3, GFR 30-59 ml/min ([facility] V24, [facility] V28) 05/06/2010 Overview (01/04/2024): Last Assessment & Plan: Continues to follow with Dr. Marroquin as recommended. Will update metabolic panel after the completion of increased furosemide dosing x 3 days [address] collaborate with Dr Marroquin moving forward as indicated. Microalbuminuria 05/06/2010 Status post hip replacement 05/06/2010 Obstructive sleep apnea 08/09/2009 Overview (01/04/2024): Has mask Used infrequently. [facility] Home Sleep Apnea Test: Date 10/23/2017; Wt 221#; BMI 42; VIK 7, AI 0.4; HI 6.4; Unclassified apneas 0; Obstructive apneas 3; Central apneas 0; Mixed apneas 0; hypopneas 50; average oxygen saturation 90% (lowest 80% with saturations <88% for 5% or more of study) [facility] Sleep Center Polysomnogram treatment study. [...] own machine; she is working with her biopharmaceutical rep regarding this. Depression 09/07/2008 Gout 09/25/2005 Hypertension [...] Encounters Date Type Department Care Team Description 12/06/2024 Telephone Adult Medicine [address] [phone] Miguel Morrison, PA 11/30/2024 Telephone Adult Medicine [address] [phone] Miguel Morrison PA 11/30/2024 Telephone Adult Medicine [address] [phone] Miguel Morrison PA 11/30/2024 Telephone Adult Medicine [address] [phone] Miguel Morrison PA 11/29/2024 Telephone Adult Medicine [address] [phone] Miguel Morrison PA 11/24/2024 Telephone [facility] [address] [facility] [address] [place] [phone] Lorrie Avalos RN 11/24/2024 Telephone [facility] Cardiology [facility] [address] [address] [place] [address] Gisel Crain MA 11/21/2024 Telephone [facility] [address] [place] [address] Shari Guerrero NP 11/20/2024 Telephone Adult [address] [phone] Alphonse Amos MD 11/18/2024 Telephone Adult [address] [phone] Miguel Morrison, PA 11/17/2024 12:40 PM EDT Office Visit [facility] [address] [place] [address] Shari Guerrero NP Chronic diastolic congestive heart failure (CMS/HCC V24, CMS/HCC V28) (Primary Dx); Pulmonary hypertension (CMS/HCC V24, CMS/HCC V28); Stenosis of prosthetic mitral valve, subsequent encounter; S/P mitral valve replacement; Nonrheumatic mitral valve stenosis; Tricuspid valve insufficiency, unspecified etiology; Aortic valve stenosis, etiology of cardiac valve disease unspecified; Coronary artery disease involving nome coronary artery of nome heart without angina pectoris; Hyperlipidemia, unspecified hyperlipidemia type; Primary hypertension; Paroxysmal atrial fibrillation (CMS/HCC V24, CMS/HCC V28); Secondary hypercoagulable state (CMS/HCC V24); Class 1 obesity due to excess calories with serious comorbidity and body mass index (BMI) of 33.0 to 33.9 in adult; SOB (shortness of breath); Hospital discharge follow-up 11/08/2024 Telephone Adult Medicine [address] [phone] Miguel Morrison, PA 11/02/2024 Telephone [facility] [address] [facility] [address] [place] [address] Venancio Dobbs MD 10/28/2024 Telephone Adult Medicine [address] [phone] Miguel Morrison PA 10/26/2024 5:30 PM EDT - 10/26/2024 11:59 PM EDT Hospital Encounter Radiology Department [address] [phone] Low back pain without sciatica, unspecified back pain laterality, unspecified chronicity; Dysuria; Stage 3 chronic kidney disease, unspecified whether stage 3a or 3b CKD ([facility] V24, [facility] V28); COPD, moderate ([facility] V24, [facility] V28); Depression, unspecified depression type; Diabetes mellitus type 2 with neurological manifestations ([facility] V24, [facility] V28); Hyperlipidemia, unspecified hyperlipidemia type; Gout, unspecified cause, unspecified chronicity, unspecified site; Primary hypertension; Hyperparathyroidism ([facility] V24); Microalbuminuria; Obstructive sleep apnea; Paroxysmal atrial fibrillation ([facility] V24, [facility] V28); Pulmonary hypertension ([facility] V24, [facility] V28) Discharge Disposition: Home or Self Care 10/26/2024 Telephone Adult Medicine [address] [phone] Amina Newberry, Janie 10/26/2024 Telephone [facility] Cardiology [facility] [address] [facility] 101 [place] [address] Emily Kevin 10/21/2024 Telephone [facility] Cardiology [facility] [address] [facility] 101 [place] [address] Venancio Dobbs MD 10/21/2024 Telephone Gastroenterology [facility] [address] [place] [phone] Rylan Castillo DO 10/14/2024 9:53 AM EDT - 10/14/2024 11:59 PM EDT Hospital Encounter [address] [phone] Low back pain without sciatica, unspecified back [...] AM EDT Office Visit Adult Medicine [address] [phone] Miguel Morrison PA Diabetes mellitus type 2 [...] (CMS/HCC V24, CMS/HCC V28) 09/28/2024 Telephone Gastroenterology [facility] [address] [facility] [address] [place] [address] Patti Causey LPN 09/13/2024 9:00 AM EDT Consult Gastroenterology - [place] [address] [place] [address] Josee Andrade, ANABELA Iron deficiency anemia, unspecified iron deficiency anemia type (Primary Dx) 09/13/2024 Telephone Gastroenterology - [address] [place] [address] Josee Andrade NP from Last 3 Months Immunizations Immunization Administration [...] Date Site/Laterality Comments OTHER SURGICAL HISTORY PROCEDURE: PA MADRID FACETECTOMY & FORAMOTOMY 1 VRT SGM [...] kidney disease) stage 3, GFR 30-59 ml/min ([facility] V24, [facility] V28) 05/06/2010 DX:CKD (chronic kidney disea se) stage 3, GFR 30-59 ml/min ([facility]) Congestive heart failure (CH F) ([facility] V24, [facility] V28) 07/07/2012 DX:Congestive heart failure (CHF) ([facility]); COMMENT: ECHO: 06/2012: LVEF 60-65%, no focal wall motion abnormalitis, moderate diastolic dysfunction with dilated right ventricle and increased LA pressure, mod-severe pulm htn and mode/severe MS. Depressive disorder 09/07/2008 DX:Depressiv e disorder Diabetes mellitus type 2 wit h neurological manifestations ([facility] V24, [facility] V28) 03/19/2015 DX:Diabetes mellitus type 2 with neurological manifestations ([facility]) Gout 09/25/2005 DX:Gout Hyperlipidemia 02/24/2014 DX:Hyperlipidemi a Hypertension 03/13/2005 DX:Hypertension LAP-BAND surgery status 10/06/2016 DX:LAP-B AND surgery status Lumbosacral spondylosis with out myelopathy 02/05/2005 DX:Lumbosacral spondylosis w ithout myelopathy; COMMENT: SX x 2 Lung nodules 08/25/2012 DX:Lung nodules; COMMENT: Multiple low suspicion lung nodules. Previous smoker, will repeat in 1 year for follow up( due in 07/2013) Microalbuminuria 05/06/2010 DX:Microalbumin uria COPD, moderate ([facility] V24, [facility] V28) 05/29/2010 DX:COPD, moderate ([facility]); COM MENT: last PFTs 03/2009; on 2.5-3 L portable oxygen with activity Morbid obesity ([facility] V24, [facility] V28) 10/02/2010 DX:Morbid obesity ([facility]) Obstructive sleep apnea 08/09/2009 DX:Obstr uctive sleep apnea; COMMENT: Has mask Used infreeequently S/P mitral valve replacement 10/26/2012 DX: S/P mitral valve replacement; COMMENT: 09/2012 Dr. Garay Status post hip replacement 05/06/2010 DX:S tatus post hip replacement Type 2 diabetes mellitus wit h renal manifestations, controlled ([facility] V24, [facility] V28) 12/15/2012 DX:Type 2 diabetes mellitus with renal manifestations, controlled ([facility]) Family History Medical History Relation Name Comments [...] for your loved ones. For example, children's ministries director or elderly care for an older [...] AM EDT Office Visit Adult Medicine [address] [phone] Lexi De Oliveira PA [address] [place], [place] 12/27/2024 2:15 PM EDT Office Visit Orthopedic Surgery - [place] [address] [facility] 250 [place] [phone] Manolo Trammell DPM 175 [facility] [address] [place] [phone] 01/02/2025 8:[address] [facility] [address] [place] [phone] Rylan Castillo DO [address] [address] 01/30/2025 9:45 AM EST Office Visit Pulmonology - [place] [address] [phone] Jose Guillen MD [address] [address] 08/10/2025 1:00 PM EDT Office Visit [facility] [address] [place], [place] [phone] Karthik Marroquin MD [address] [facility] [address] [place] [phone] Health Maintenance Due Date Last Done Comments Medicare Annual Wellness Visit 02/08/2022 Diabetes: Annual Foot Exam 10/08/2024 10/09/2023 COVID-19 Vaccine ( season) 2024 12/18/2021, 07/31/2021, 01/03/2021, Additional history exists Influenza Vaccine (#1) 2024 3, 12/09/2021, 11/16/2019, Additional history exists Falls Risk [...] Meningococcal B Vaccine Aged Out No l carenger eligible based on patient's age to complete this topic RSV Immunization Patients Under 20 months Aged Out No longer eligible based on patient's age to complete this topic Varicella Vaccines Aged Out No longer eligible based on patient's age to complete this topic Goals Goal Patient Goal Type Associated Problems Recent Progress Patient-Stated? Author Adherence to Treatment Plan Na Ladd RN Note: To to weigh herself daily Pt to continue to follow a low salt diet Procedures Procedure Name Priority Date/Time Associated Diagnosis Comments BASIC METABOLIC PANEL Routine 11/22/2024 2:18 PM EDT Chronic diastolic congestive heart failure ([facility]/HCC V24, CMS/HCC V28) Primary hypertension MAGNESIUM Routine 11/22/2024 2:18 [...] unspecified chronicity, unspecified site Primary hypertension Hyperparathyroidism (CMS/HCC V24) Microalbuminuria Obstructive sleep apnea Paroxysmal atrial fibrillation (CMS/HCC V24, CMS/HCC V28) Pulmonary hypertension (CMS/HCC V24, CMS/HCC V28) EXTERNAL CT REPORT 10/19/2024 URINALYSIS WITH REFLEX MICROSCOPIC Routine 10/14/2024 10:32 AM EDT Low back pain without sciatica, unspecified back pain laterality, unspecified chronicity Dysuria Stage 3 chronic kidney disease, unspecified whether stage 3a or 3b CKD (CMS/HCC V24, CMS/HCC V28) COPD, moderate (CMS/[facility] V24, CMS/HCC V28) Depression, unspecified depression type Diabetes mellitus type 2 with neurological manifestations ([facility] V24, [facility] V28) Hyperlipidemia, unspecified hyperlipidemia type Gout, unspecified cause, unspecified chronicity, unspecified site Primary hypertension Hyperparathyroidism ([facility] V24) Microalbuminuria Obstructive sleep apnea Paroxysmal atrial fibrillation ([facility] V24, [facility] V28) Pulmonary hypertension ([facility] V24, [facility] V28) URINALYSIS WITH REFLEX MICROSCOPIC Routine 10/14/2024 10:32 AM EDT Low back pain without sciatica, unspecified back pain laterality, unspecified chronicity Dysuria Stage 3 chronic kidney disease, unspecified whether stage 3a or 3b CKD ([facility] V24, [facility] V28) COPD, moderate ([facility] V24, [facility] V28) Depression, unspecified depression type Diabetes mellitus type 2 with neurological manifestations ([facility] V24, [facility] V28) Hyperlipidemia, unspecified hyperlipidemia type Gout, unspecified cause, unspecified chronicity, unspecified site Primary hypertension Hyperparathyroidism ([facility] V24) Microalbuminuria Obstructive sleep apnea Paroxysmal atrial fibrillation ([facility] V24, [facility] V28) Pulmonary hypertension ([facility] V24, [facility] V28) XR LUMBAR SPINE 4+ VIEWS Routine 10/14/2024 10:08 AM EDT Low back pain without sciatica, unspecified back pain laterality, unspecified chronicity Dysuria Stage 3 chronic kidney disease, unspecified whether stage 3a or 3b CKD ([facility] V24, [facility] V28) COPD, moderate ([facility] V24, [facility] V28) Depression, unspecified depression type Diabetes mellitus type 2 with neurological manifestations ([facility] V24, [facility] V28) Hyperlipidemia, unspecified hyperlipidemia type Gout, unspecified cause, unspecified chronicity, unspecified site Primary hypertension Hyperparathyroidism ([facility] V24) Microalbuminuria Obstructive sleep apnea Paroxysmal atrial fibrillation ([facility] V24, [facility] V28) Pulmonary hypertension ([facility] V24, [facility] V28) CBC WITH AUTO DIFFERENTIAL Routine 10/12/2024 10:35 AM EDT Stage 3 chronic kidney disease, unspecified whether stage 3a or 3b CKD ([facility] V24, [facility] V28) COPD, moderate ([facility] V24, [facility] V28) Depression, unspecified depression type Diabetes mellitus type 2 with neurological manifestations ([facility] V24, [facility] V28) Gout, unspecified cause, unspecified chronicity, unspecified site Hyperparathyroidism ([facility] V24) Primary hypertension Hyperlipidemia, unspecified hyperlipidemia type Diastolic congestive heart failure, unspecified HF chronicity ([facility] V24, [facility] V28) Pulmonary hypertension ([facility] V24, [facility] V28) Paroxysmal atrial fibrillation ([facility] V24, [facility] V28) Obstructive sleep apnea Typical atrial flutter ([facility] V24, [facility] V28) URIC ACID Routine 10/12/2024 10:35 AM EDT Stage 3 chronic kidney disease, unspecified whether stage 3a or 3b CKD ([facility] V24, [facility] V28) COPD, moderate ([facility] V24, [facility] V28) Depression, unspecified depression type Diabetes mellitus type 2 with neurological manifestations ([facility] V24, [facility] V28) Gout, unspecified cause, unspecified chronicity, unspecified site Hyperparathyroidism ([facility] V24) Primary hypertension Hyperlipidemia, unspecified hyperlipidemia type Diastolic congestive heart failure, unspecified HF chronicity ([facility] V24, [facility] V28) Pulmonary hypertension ([facility] V24, [facility] V28) Paroxysmal atrial fibrillation ([facility] V24, [facility] V28) Obstructive sleep apnea Typical atrial flutter ([facility] V24, [facility] V28) PARATHYROID HORMONE INTACT Routine 10/12/2024 10:35 AM EDT Stage 3 chronic kidney disease, unspecified whether stage 3a or 3b CKD ([facility] V24, [facility] V28) COPD, moderate ([facility] V24, [facility] V28) Depression, unspecified depression type Diabetes mellitus type 2 with neurological manifestations ([facility] V24, [facility] V28) Gout, unspecified cause, unspecified chronicity, unspecified site Hyperparathyroidism ([facility] V24) Primary hypertension Hyperlipidemia, unspecified hyperlipidemia type Diastolic congestive heart failure, unspecified HF chronicity (CMS/HCC V24, CMS/HCC V28) Pulmonary hypertension (CMS/HCC V24, CMS/HCC V28) Paroxysmal atrial fibrillation (CMS/HCC V24, CMS/HCC V28) Obstructive sleep apnea Typical atrial flutter (CMS/HCC V24, CMS/HCC V28) CBC AND DIFFERENTIAL Routine 10/12/2024 10:35 AM EDT Stage 3 chronic kidney disease, unspecified whether stage 3a or 3b CKD ([facility]/HCC V24, CMS/HCC V28) COPD, moderate (CMS/HCC V24, CMS/HCC V28) Depression, unspecified depression type Diabetes mellitus type 2 with neurological manifestations (CMS/HCC V24, CMS/HCC V28) Gout, unspecified cause, unspecified chronicity, unspecified site Hyperparathyroidism ([facility]/HCC V24) Primary hypertension Hyperlipidemia, unspecified hyperlipidemia type Diastolic congestive heart failure, unspecified HF chronicity ([facility]/HCC V24, [facility]/HCC V28) Pulmonary hypertension ([facility]/HCC V24, CMS/HCC V28) Paroxysmal atrial fibrillation ([facility]/HCC V24, CMS/HCC V28) Obstructive sleep apnea Typical atrial flutter (CMS/HCC V24, CMS/HCC V28) IRON AND TIBC Routine 10/12/2024 10:35 AM EDT Stage 3 chronic kidney disease, unspecified whether stage 3a or 3b CKD ([facility]/HCC V24, [facility]/HCC V28) COPD, moderate (CMS/HCC V24, CMS/HCC V28) Depression, unspecified depression type Diabetes mellitus type 2 with neurological manifestations ([facility]/HCC V24, [facility]/HCC V28) Gout, unspecified cause, unspecified chronicity, unspecified site Hyperparathyroidism ([facility]/HCC V24) Primary hypertension Hyperlipidemia, unspecified hyperlipidemia type Diastolic congestive heart failure, unspecified HF chronicity (CMS/HCC V24, CMS/HCC V28) Pulmonary hypertension ([facility]/HCC V24, CMS/HCC V28) Paroxysmal atrial fibrillation (CMS/HCC V24, CMS/HCC V28) Obstructive sleep apnea Typical atrial flutter ([facility]/HCC V24, CMS/HCC V28) HEMOGLOBIN A1C Routine 10/12/2024 10:35 AM EDT Stage 3 chronic kidney disease, unspecified whether stage 3a or 3b CKD ([facility] V24, [facility] V28) COPD, moderate ([facility] V24, [facility] V28) Depression, unspecified depression type Diabetes mellitus type 2 with neurological manifestations ([facility] V24, [facility] V28) Gout, unspecified cause, unspecified chronicity, unspecified site Hyperparathyroidism ([facility] V24) Primary hypertension Hyperlipidemia, unspecified hyperlipidemia type Diastolic congestive heart failure, unspecified HF chronicity ([facility] V24, [facility] V28) Pulmonary hypertension ([facility] V24, [facility] V28[facility] Paroxysmal atrial fibrillation ([facility] V24, [facility] V28) Obstructive sleep apnea Typical atrial flutter ([facility] V24, [facility] V28) COMPREHENSIVE METABOLIC PANEL Routine 10/12/2024 10:35 AM EDT Stage 3 chronic kidney disease, unspecified whether stage 3a or 3b CKD ([facility] V24, [facility] V28) COPD, moderate ([facility] V24, [facility] V28) Depression, unspecified depression type Diabetes mellitus type 2 with neurological manifestations ([facility] V24, [facility] V28) Gout, unspecified cause, unspecified chronicity, unspecified site Hyperparathyroidism ([facility] V24) Primary hypertension Hyperlipidemia, unspecified hyperlipidemia type Diastolic congestive heart failure, unspecified HF chronicity ([facility] V24, [facility] V28) Pulmonary hypertension ([facility] V24, [facility] V28[facility] Paroxysmal atrial fibrillation ([facility] V24, [facility] V28) Obstructive sleep apnea Typical atrial flutter ([facility] V24, [facility] V28) MICROALBUMIN CREATININE URINE RATIO Routine 10/12/2024 10:35 AM EDT Stage 3 chronic kidney disease, unspecified whether stage 3a or 3b CKD ([facility] V24, [facility] V28) COPD, moderate ([facility] V24, [facility] V28) Depression, unspecified depression type Diabetes mellitus type 2 with neurological manifestations ([facility] V24, [facility] V28) Gout, unspecified cause, unspecified chronicity, unspecified site Hyperparathyroidism ([facility] V24) Primary hypertension Hyperlipidemia, unspecified hyperlipidemia type Diastolic congestive heart failure, unspecified HF chronicity ([facility] V24, [facility] V28[facility] Pulmonary hypertension ([facility] V24, [facility] V28[facility] Paroxysmal atrial fibrillation ([facility] V24[facility] V28[facility] Obstructive sleep apnea Typical atrial flutter ([facility] V24, [facility] V28) LIPID PANEL WITH REFLEX TO DIRECT LDL Routine 10/12/2024 10:35 AM EDT Stage 3 chronic kidney disease, unspecified whether stage 3a or 3b CKD ([facility] V24, [facility] V28) COPD, moderate ([facility] V24, [facility] V28) Depression, unspecified depression type Diabetes mellitus type 2 with neurological manifestations ([facility] V24, [facility] V28) Gout, unspecified cause, unspecified chronicity, unspecified site Hyperparathyroidism ([facility] V24) Primary hypertension Hyperlipidemia, unspecified hyperlipidemia type Diastolic congestive heart failure, unspecified HF chronicity ([facility] V24, [facility] V28[facility] Pulmonary hypertension ([facility] V24, [facility] V28[facility] Paroxysmal atrial fibrillation ([facility] V24, [facility] V28) Obstructive sleep apnea Typical atrial flutter ([facility] V24, [facility] V28) EXTERNAL DIABETIC RETINA EYE EXAM 10/03/2024 DXA BONE DENSITY STUDY 1+ SITS AXIAL SKEL Routine 08/12/2017 10:37 AM EDT Encounter for screening for osteoporosis Stage 3 chronic kidney disease ([facility] V24, [facility] V28) Hyperparathyroidism, unspecified ([facility] V24) from Last 3 Months or Most Recently Relevant to Health Maintenance Results * (ABNORMAL) Magnesium (11/22/2024 2:18 PM EDT) [facility] Signature Magnesium 1.7(L) 1.9 - 2.6 mg/dL LAB CHEMISTRY METHOD 11/22/2024 4:58 PM EDT [facility] Blood Venous blood specimen / Unknown Venipuncture / Unknown 11/22/2024 2:18 PM EDT 11/22/2024 2:18 PM EDT Shari Guerrero NP LAB BLOOD ORDERABLES Final Result [facility] [address] [place] [address], [place] [phone] * Basic metabolic panel (11/22/2024 2:18 PM EDT) Sodium 140 133 - 145 mmol/L LAB CHEMISTRY METHOD 11/22/2024 4:58 PM EDT [facility] Potassium 3.8 3.5 - 5.5 mmol/L LAB CHEMISTRY METHOD 11/22/2024 4:58 PM [facility] Chloride 102 96 - 110 mmol/L LAB CHEMISTRY METHOD 11/22/2024 4:58 PM [facility] CO2 30 21 - 32 mmol/L LAB CHEMISTRY METHOD 11/22/2024 4:58 PM T [facility] Anion Gap 8 3 - 11 LAB CHEMISTRY METHOD 11/22/2024 4:58 PM T [facility] Glucose 85 70 - 100 mg/dL LAB CHEMISTRY METHOD 11/22/2024 4:58 PM [facility] BUN 12 5 - 25 mg/dL LAB CHEMISTRY METHOD 11/22/2024 4:58 PM T [facility] Creatinine 0.85 0.50 - 1.10 mg/dL LAB CHEMISTRY METHOD 11/22/2024 4:58 PM [facility] eGFR 69 >=60 mL/min/1. 73m2 LAB CHEMISTRY METHOD 11/22/2024 4:58 PM [facility] Comment:Calculation based on the Chronic Kidney Disease Epidemiology Collaboration (CKD-EPI) equation refit without adjustment for race. BUN/Creatinine Ratio 14.1 LAB CHEMISTRY METHOD 11/22/2024 4:58 PM T [facility] Calcium 9.8 8.5 - 10.5 mg/dL LAB CHEMISTRY METHOD 11/22/2024 4:58 PM EDT [facility] Blood Venous blood specimen / Unknown Venipuncture / Unknown 11/22/2024 2:18 PM EDT 11/22/2024 2:18 PM EDT Shari Guerrero [facility] LAB BLOOD ORDERABLES Final Result [facility] [address] [place] [address], [place] [phone] * External clinical lab (11/01/2024) Provider [facility] [...] Signed Date: 10/27/2024 17:39 ET Workstation ID: [id number] Transcribed By: Self Edit Transcribed Date: 10/27/2024 [...] Signed Date: 10/27/2024 17:39 ET Workstation ID: [id number] Transcribed By: Self Edit Transcribed Date: 10/27/2024 09:13 ET Miguel KWON IMG MRI PROCEDURES Final Result * External CT Report (10/19/2024) Anatomical Region Laterality Modality Computed Tomogra phy us [facility] Final Result * (ABNORMAL) Urinalysis with reflex microscopic (10/14/2024 10:32 AM EDT) Specific [place] Urine 1.014 1.003 - 1.030 LAB URINALYSIS - AUTOMATED METHOD 10/14/2024 12:00 PM [facility] pH, Urine 6.0 5.0 - 8.0 pH LAB URINALYSIS - AUTOMATED METHOD 10/14/2024 12:00 PM [facility] Leukocytes, Urine Trace(A) Negative LAB URINALYSIS - AUTOMATED METHOD 10/14/2024 12:00 PM [facility] Nitrite, Urine Negative Negative LAB URINALYSIS - AUTOMATED METHOD 10/14/2024 12:00 PM [facility] Protein, Urine Trace <=Trace mg/dL LAB URINALYSIS - AUTOMATED METHOD 10/14/2024 12:00 PM [facility] Glucose, Urine Negative Negative mg/dL LAB URINALYSIS - AUTOMATED METHOD 10/14/2024 12:00 PM [facility] Ketones, Urine Negative Negative mg/dL LAB URINALYSIS - AUTOMATED METHOD 10/14/2024 12:00 PM [facility] Urobilinogen, Urine 0.2 0.2 - 1.0 mg/dL LAB URINALYSIS - AUTOMATED METHOD 10/14/2024 12:00 PM [facility] Bilirubin, Urine Negative Negative LAB URINALYSIS - AUTOMATED METHOD 10/14/2024 12:00 PM [facility] Blood, Urine Negative Negative LAB URINALYSIS - AUTOMATED METHOD 10/14/2024 12:00 PM [facility] RBC, Urine 2.6 0 - 4 /HPF LAB URINALYSIS - AUTOMATED METHOD 10/14/2024 12:00 PM EDT [facility] WBC, Urine 6.8(H) 0 - 4 /HPF LAB URINALYSIS - AUTOMATED METHOD 10/14/2024 12:00 PM EDT [facility] Squamous Epithelial, Urine >100(H) 0 - 60 /LPF LAB URINALYSIS - AUTOMATED METHOD 10/14/2024 12:00 PM EDT [facility] Bacteria, Urine Negative Negative /HPF LAB URINALYSIS - AUTOMATED METHOD 10/14/2024 12:00 PM EDT [facility] Hyaline Casts, Urine 1.6 0 - 3 /LPF LAB URINALYSIS - AUTOMATED METHOD 10/14/2024 12:00 PM EDT [facility] Urine Urine specimen obtained by clean catch procedure / Unknown Non-blood Collection / Unknown 10/14/2024 10:32 AM EDT 10/14/2024 10:32 AM EDT Miguel KWON LAB URINE ORDERABLES Dede l Result [facility] [address] [place] [address], * XR Lumbar Spine 4+ Views (10/14/2024 10:08 AM EDT) Anatomical Region Laterality Modality Spine, L-spine Radiographic Sravanthi ging 10/14/2024 11:5 3 AM EDT Impressions 10/14/2024 12:01 PM EDT Scoliosis. Extensive degenerative changes. Grade 1 spondylolisthesis at L4-5. POS - [id number] -------- FINAL REPORT -------- Dictated By: Lorena Conroy Dictated Date: 10/14/2024 11:53 ET Assigned Physician: Lorena Conroy Reviewed and Electronically Signed By: Lorena Conroy Signed Date: 10/14/2024 12:01 ET Workstation ID: [id number] Transcribed By: Self Edit Transcribed Date: 10/14/2024 [...] changes. Grade 1 spondylolisthesis atL4-5. POS - [id number] -------- FINAL REPORT -------- Dictated By: Lorena Conroy Dictated Date: 10/14/2024 11:53 ET Assigned Physician: Lorena Conroy Reviewed and Electronically Signed By: Lorena Conroy Signed Date: 10/14/2024 12:01 ET Workstation ID: [id number] Transcribed By: Self Edit Transcribed Date: 10/14/2024 11:53 ET Miguel KWON IMG XR PROCEDURES Final R esult * Lipid panel with reflex to direct LDL (10/12/2024 10:35 AM EDT) Cholesterol 141 0 - 200 mg/dL LAB CHEMISTRY METHOD 10/12/2024 3:23 PM EDT [facility] Triglycerides 104 0 - 150 mg/dL LAB CHEMISTRY METHOD 10/12/2024 3:23 PM EDT [facility] HDL 68 >=40 mg/dL LAB CHEMISTRY METHOD 10/12/2024 3:23 PM EDT [facility] LDL Calculated 52 0 - 100 mg/dL LAB CHEMISTRY METHOD 10/12/2024 3:23 PM EDT [facility] Comment:Estimated LDL Calcul ated using equation: Total cholesterol - HDL cholesterol - (Triglycerides/5) VLDL Cholesterol Aime 20.8 mg/dL LAB CHEMISTRY METHOD 10/12/2024 3:23 PM EDT [facility] Non HDL Chol. (LDL+VLDL) 73 <145 mg/dL LAB CHEMISTRY METHOD 10/12/2024 3:23 PM EDT [facility] Chol/HDL Ratio 2.1 0.0 - 4.4 LAB CHEMISTRY METHOD 10/12/2024 3:23 PM T [facility] Blood Venous blood specimen / Unknown Venipuncture / Unknown 10/12/2024 10:35 AM EDT 10/12/2024 10:35 AM EDT us Miguel KWON LAB BLOOD ORDERABLES Dede l Result [facility] [address] [place] [address], * (ABNORMAL) CBC auto differential (10/12/2024 10:35 AM EDT) WBC 14.8(H) 4.8 - 10.8 K/mcL LAB HEMETOLOGY METHOD 10/12/2024 1:53 PM [facility] RBC 4.20 3.80 - 4.80 M/mcL LAB HEMETOLOGY METHOD 10/12/2024 1:53 PM [facility] Hemoglobin 12.3 11.5 - 16.0 g/dL LAB HEMETOLOGY METHOD 10/12/2024 1:53 PM [facility] Hematocrit 39.6 35.0 - 47.0 % LAB HEMETOLOGY METHOD 10/12/2024 1:53 PM [facility] MCV 93.6 79.0 - 98.0 FL LAB HEMETOLOGY METHOD 10/12/2024 1:53 PM [facility] MCH 29.1 27.0 - 32.0 pcg LAB HEMETOLOGY METHOD 10/12/2024 1:53 PM [facility] MCHC 31.1(L) 32.0 - 37.0 g/dL LAB HEMETOLOGY METHOD 10/12/2024 1:53 PM [facility] RDW 17.7(H) 11.0 - 15.0 % LAB HEMETOLOGY METHOD 10/12/2024 1:53 PM [facility] Platelets 279 130 - 400 K/mcL LAB HEMETOLOGY METHOD 10/12/2024 1:53 PM [facility] MPV 11.5(H) 7.0 - 11.0 FL LAB HEMETOLOGY METHOD 10/12/2024 1:53 PM [facility] NRBC 0.0 <1.0 % LAB HEMETOLOGY METHOD 10/12/2024 1:53 PM [facility] NRBC Absolute 0.00 <0.10 K/mcL LAB HEMETOLOGY METHOD 10/12/2024 1:53 PM [facility] Neutrophils Relative 72.5 % LAB HEMETOLOGY METHOD 10/12/2024 1:53 PM [facility] Lymphocytes Relative 15.4 % LAB HEMETOLOGY METHOD 10/12/2024 1:53 PM [facility] Monocytes Relative 9.4 % LAB HEMETOLOGY METHOD 10/12/2024 1:53 PM [facility] Eosinophils Relative 2.0 % LAB HEMETOLOGY METHOD 10/12/2024 1:53 PM [facility] Basophils Relative 0.3 % LAB HEMETOLOGY METHOD 10/12/2024 1:53 PM [facility] Immature Granulocytes Relative 0.4 % LAB HEMETOLOGY METHOD 10/12/2024 1:53 PM [facility] Neutrophils Absolute 10.70(H) 1.50 - 7.00 K/mcL LAB HEMETOLOGY METHOD 10/12/2024 1:53 PM [facility] Lymphocytes Absolute 2.27 1.00 - 5.00 K/mcL LAB HEMETOLOGY METHOD 10/12/2024 1:53 PM [facility] Monocytes Absolute 1.38(H) 0.20 - 1.00 K/mcL LAB HEMETOLOGY METHOD 10/12/2024 1:53 PM [facility] Eosinophils Absolute 0.29 0.00 - 0.50 K/mcL LAB HEMETOLOGY METHOD 10/12/2024 1:53 PM [facility] Basophils Absolute 0.05 0.00 - 0.20 K/mcL LAB HEMETOLOGY METHOD 10/12/2024 1:53 PM [facility] Immature Granulocytes Absolute 0.06(H) 0.00 - 0.03 K/mcL LAB HEMETOLOGY METHOD 10/12/2024 1:53 PM [facility] Blood Venous blood specimen / Unknown Venipuncture / Unknown 10/12/2024 10:35 AM EDT 10/12/2024 10:35 AM EDT Miguel KWON LAB BLOOD ORDERABLES Dede l Result Performing Organization Address City/[facility]/ZIP Co de Phone Number [facility] [address] [place] [address], [place] [phone] * (ABNORMAL) Iron and TIBC (10/12/2024 10:35 AM EDT) Iron 47 40 - 150 mcg/dL LAB CHEMISTRY METHOD 10/12/2024 3:23 PM EDT [facility] TIBC 351 250 - 450 mcg/dL LAB CHEMISTRY METHOD 10/12/2024 3:23 PM EDT [facility] Iron Saturation 13(L) 15 - 50 % LAB CHEMISTRY METHOD 10/12/2024 3:23 PM EDT [facility] Blood Venous blood specimen / Unknown Venipuncture / Unknown 10/12/2024 10:35 AM EDT 10/12/2024 10:35 AM EDT Miguel KWON LAB BLOOD ORDERABLES Dede l Result Performing Organization Address [facility]/[place] Co de Phone Number [facility] [address] [place] [address], [place] [phone] * (ABNORMAL) Microalbumin creatinine urine ratio (10/12/2024 10:35 AM EDT) Creatinine, Urine 85.0 mg/dL LAB CHEMISTRY METHOD 10/12/2024 2:39 PM EDT [facility] Microalb, Ur 80.3(H) 0.0 - 29.0 mg/L LAB CHEMISTRY METHOD 10/12/2024 2:39 PM EDT [facility] Microalb/Crea t Ratio 94(H) <30 mg/g creat LAB CHEMISTRY METHOD 10/12/2024 2:39 PM EDT [facility] Urine Urine specimen obtained by clean catch procedure / Unknown Non-blood Collection / Unknown 10/12/2024 10:35 AM EDT 10/12/2024 10:35 AM EDT Miguel KOWN LAB URINE ORDERABLES Dede l Result Performing Organization Address [facility]/ZIP Co de Phone Number [facility] [address] [place] [address], * Uric acid (10/12/2024 10:35 AM EDT) Uric Acid 3.5 3.1 - 7.8 mg/dL LAB CHEMISTRY METHOD 10/12/2024 3:23 PM EDT [facility] Blood Venous blood specimen / Unknown Venipuncture / Unknown 10/12/2024 10:35 AM EDT 10/12/2024 10:35 AM EDT Miguel KWON LAB BLOOD ORDERABLES Dede l Result Performing Organization Address [facility] de Phone Number [facility] [address] [place] [address], * Parathyroid hormone intact (10/12/2024 10:35 AM EDT) PTH 68.7 18.5 - 88.0 pcg/mL LAB CHEMISTRY METHOD 10/12/2024 4:29 PM EDT [facility] Blood Venous blood specimen / Unknown Venipuncture / Unknown 10/12/2024 10:35 AM EDT 10/12/2024 10:35 AM EDT Miguel Morrison [place] LAB BLOOD ORDERABLES Dede l Result Performing Organization Address City/[facility]/ZIP Co de Phone Number [facility] [address] [place] [address], [place] [phone] * Hemoglobin A1c (10/12/2024 10:35 AM EDT) [facility] [address] Hemoglobin A1C 5.8 <6.5 % LAB CHEMISTRY METHOD 10/12/2024 3:09 PM EDT [facility] Mean Bld Glu Estim. 120 mg/dL LAB CHEMISTRY METHOD 10/12/2024 3:09 PM T [facility] Blood Venous blood specimen / Unknown Venipuncture / Unknown 10/12/2024 10:35 AM EDT 10/12/2024 10:35 AM EDT Miguel KWON LAB BLOOD ORDERABLES Dede craven Result [facility] [address] [place] [address], [place] [phone] * (ABNORMAL) Comprehensive metabolic panel (10/12/2024 10:35 AM EDT) [facility] [address] Sodium 141 133 - 145 mmol/L LAB CHEMISTRY METHOD 10/12/2024 3:30 PM [facility] Potassium 4.2 3.5 - 5.5 mmol/L LAB CHEMISTRY METHOD 10/12/2024 3:30 PM [facility] Chloride 107 96 - 110 mmol/L LAB CHEMISTRY METHOD 10/12/2024 3:30 PM [facility] CO2 29 21 - 32 mmol/L LAB CHEMISTRY METHOD 10/12/2024 3:30 PM [facility] Anion Gap 5 3 - 11 LAB CHEMISTRY METHOD 10/12/2024 3:30 PM [facility] Glucose 88 70 - 100 mg/dL LAB CHEMISTRY METHOD 10/12/2024 3:30 PM [facility] BUN 9 5 - 25 mg/dL LAB CHEMISTRY METHOD 10/12/2024 3:30 PM [facility] Creatinine 1.02 0.50 - 1.10 mg/dL LAB CHEMISTRY METHOD 10/12/2024 3:30 PM EDT [facility] eGFR 55(L) >=60 mL/min/1. 73m2 LAB CHEMISTRY METHOD 10/12/2024 3:30 PM T [facility] Comment:Calculation based on the Chronic Kidney Disease Epidemiology Collaboration (CKD-EPI) equation refit without adjustment for race. BUN/Creatinine Ratio 8.8 LAB CHEMISTRY METHOD 10/12/2024 3:30 PM EDT [facility] Calcium 9.9 8.5 - 10.5 mg/dL LAB CHEMISTRY METHOD 10/12/2024 3:30 PM [facility] AST (SGOT) 19 10 - 42 unit/L LAB CHEMISTRY METHOD 10/12/2024 3:30 PM [facility] ALT (SGPT) 22 10 - 60 unit/L LAB CHEMISTRY METHOD 10/12/2024 3:30 PM [facility] Alkaline Phosphatase 139(H) 42 - 121 unit/L LAB CHEMISTRY METHOD 10/12/2024 3:30 PM T [facility] Total Protein 6.5 6.0 - 8.0 g/dL LAB CHEMISTRY METHOD 10/12/2024 3:30 PM [facility] Albumin 3.8 3.2 - 5.0 g/dL LAB CHEMISTRY METHOD 10/12/2024 3:30 PM [facility] Total Bilirubin 0.6 0.0 - 1.4 mg/dL LAB CHEMISTRY METHOD 10/12/2024 3:30 PM [facility] Blood Venous blood specimen / Unknown Venipuncture / Unknown 10/12/2024 10:35 AM EDT 10/12/2024 10:35 AM EDT us Miguel KWON LAB BLOOD ORDERABLES Dede l Result [facility] [address] [place] [address], * External Diabetic Retina Eye Exam Report (10/03/2024) Anatomical Region Laterality Modality Ultrasound us Provider [employer] [facility] US PROCEDURES Final Result * DXA BONE [...] classified as having normal bone density. The [facility] Department of Internal Medicine recommends [...] classified as having normal bone density. The [facility] Department of Internal Medicine recommendsusing [...] or Most Recently Relevant to Health Maintenance Additional Health Concerns Active Problems Noted Date Diagnosed Date Autogenerated Problem 12/04/2024 Insurance MEDICARE [facility] Care Teams Client Relations Representative Relationship Specialty Start Date End Date Miguel Morrison PA [address] [place] [address] PCP - General Internal Medicine 02/16/20
--- OUTSIDE RECORDS SUMMARY | 2024-12-06 16:36 | XMS_ITS | Clinical Summary ---
Author Organization [facility] Facility Address [address] [address] Care Team Providers Care Financial Aid Administrator Name Role Phone Unavailable Primary Care Provider Unavailabl e Allergies Active Allergy Reactions Criticality Noted Date Comments Fentanyl 08/15/2022 delerium Social History Tobacco Use Types Packs/Day Years [...] A1C 10/06/2024 07/06/2024 Influenza Vaccine (#1) 2024 , 12/09/2021, 12/30/2018, Additional history exists Pneumococcal Vaccine: 50+ Years Completed 11/30/2017, 01/29/2015, 01/16/2014, Additional history exists Hepatitis B Vaccine Aged Out No longe r eligible based on patient's age to complete this topic
--- OUTSIDE RECORDS SUMMARY | 2024-12-06 16:36 | XMS_ITS | Encounter Summary ---
Author Organization [facility] Address [address] [place] [address] Care Team Providers Care Centrifugal Drier Operator Name Role Phone Miguel Morrison Primary Care Provider [phone] Reason for Visit * Reason Onset Date Comments triage fall 11/30/2024 Encounter Details Date Type Department Care Team ([facility] st Contact Info) Description 11/30/2024 Telephone Adult Medicine [address] [phone] Miguel Morrison PA [address] [place] [phone] Social History Tobacco Use Types Packs/Day Years [...] for your loved ones. For example, director maternal child or elderly care for an older adult? [...] as of this encounter Progress Notes * Keith Yee RN - 11/30/2024 12:23 PM EDT Called pt mailbox is full unable to leave vm to return call mobile Called pt home number spoke with pt. Pt fell last night was walking quickly to bathroom with walkerand leg of walker got caught on door jam and fell on left side. No head injury. No dizziness or lightheadedness prior to fall. Pt sts has small bruise on left wrist and left knee small abrasion no redness no open areas no swelling. Pt sts back pain is not new from fall going to get injections in back on Thursday. Declined appt at this time if doesn't continue to improve or worsens will call back for appt pt has hosp fu scheduled for 12/15 * Fazal Johnson LPN - 11/30/2024 11:51 AM EDT Please triage see VNA message * Chase Gonzalez - 11/30/2024 9:59 AM EDT [facility]NA CALL Which [facility] office is calling? [facility] / Full name of caller: Cora The caller is An Occupational Therapist Is the caller at the patients home?: yes Reason for call: OT is calling to inform Patient fell. No serious injuries. Pt states her back is sore, small scrape covered on right knee. Does caller need an urgent call back? no Was CONTACT Telephone # obtained above?: yes Fax #: N/A documented in this encounter Plan of Treatment Upcoming Encounters Date Type Department Care Team (Late st Contact Info) Description 12/15/2024 9:00 AM EDT Office Visit Adult Medicine [address] [phone] Lexi De Oliveira PA [address] [place], [place] 12/27/2024 2:15 PM EDT Office Visit Orthopedic Surgery - [place] 250 175 [facility] 250 [place] [phone] Manolo Trammell DPM [address] [phone] 01/02/2025 8:00 AM EST Appointment [facility] Endoscopy [address] [place] [phone] Rylan Castillo DO [address] [address] 01/30/2025 9:45 AM EST Office Visit Pulmonology - [place] [address] [phone] Jose Guillen MD [address] [address] 08/10/2025 1:00 PM EDT Office Visit Nephrology [facility] [address] [place] [phone] Karthik Marroquin MD 3550 [facility] [address] [place] [phone] documented as of this encounter Goals Goal [...] documented as of this encounter Care Teams Centrifugal Drier Operator Relationship Specialty Start Date End Date Miguel Morrison PA [address] [place], [place] PCP - General Internal Medicine 02/16/20 documented as of this encounter
--- OUTSIDE RECORDS SUMMARY | 2024-12-06 16:36 | XMS_ITS | Clinical Summary ---
Author Organization [facility] Address [address] [place] [phone] Phone Care Team Providers Care Pot Feeder Name Role Phone Lowell Washington MD Primary [...] [place] [id number] [facility] MEDEX SUPPLEMENT MEDICARE PART A & B [facility] MEDEX SUPPLEMENT MEDICARE PART A & B [employer] SUPPLEMENT MEDICARE PART A & B [employer] SUPPLEMENT MEDICARE PART A & B [employer] SUPPLEMENT MEDICARE PART A & B [employer] SUPPLEMENT MEDICARE PART A & B [employer] MED[employer] SUPPLEMENT MEDICARE PART A & B [employer] SUPPLEMENT MEDICARE PART A & B [employer] MEDEX SUPPLEMENT Care Teams Pot Feeder Relationship Specialty Start Date End Date Lowell Washington MD [address] [place] [phone] PCP - General Internal Medicine 01/28/21 Additional Source Comments The information contained in this document represents components of the legal health record. It is not the complete legal health record.[facility]
--- OUTSIDE RECORDS SUMMARY | 2024-12-06 16:36 | XMS_ITS | Encounter Summary ---
Author Organization Address [address] [place] [address] Care Team Providers Care Derrick Operator Name Role Phone Miguel Morrison Primary Care Provider [phone] Reason for Visit * Reason Onset Date Comments faxed order 11/30/2024 [facility] A - #[id number] Encounter Details Date Type Department Care Team ([facility] st Contact Info) Description 11/30/2024 Telephone Adult Medicine [address] [phone] Miguel Morrison PA [address] [place] [phone] Social History Tobacco Use Types Packs/Day Years [...] for your loved ones. For example, child development assistant or elderly care for an older adult? [...] as of this encounter Progress Notes * Luz Maria Rodríguez MA - 12/05/2024 3:59 PM EDT Faxed Manually, signed and scanned. * Frances Stark MA - 11/30/2024 1:37 PM EDT Order on 's desk for signature. * Saul Pickering - 11/30/2024 12:09 PM EDT M[facility] FUNG - #[id number] orders received. Please sign and fax to [phone] documented in this encounter Plan of Treatment Upcoming Encounters Date Type Department Care Team (Late st Contact Info) Description 12/15/2024 9:00 AM EDT Office Visit Adult Medicine [facility] [address] [place], [place] [phone] Lexi De Oliveira PA [address] [place], [place] 12/27/2024 2:15 PM EDT Office Visit Orthopedic Surgery [facility] [address] [phone] Manolo Trammell DPM [address] [phone] 01/02/2025 8:[address] [facility] Endoscopy [address] [place] [phone] Rylan Castillo DO [address] [address] 01/30/2025 9:45 AM EST Office Visit Pulmonology - [place] [address] [phone] Jose Guillen MD 175 [facility] 200 [place] [address] 08/10/2025 1:00 PM EDT Office Visit Nephrology [facility] [address] [place] [phone] Karthik Marroquin MD 3550 [facility] 204 [place] [phone] documented as of this encounter Goals Goal Patient Goal Type Associated Problems Recent Progress Patient-Stated? Author Adherence to Treatment Plan General Na Hua, ABDOULAYE Note: To to weigh herself daily Pt to continue to follow a low salt diet documented as of this encounter Visit Diagnoses Not on filedocumented in this encounter Additional Health Concerns Assessment Noted Time PHQ-9 Depression Total Score: 0 03/09/19 25 8:56 AM EST documented as of this encounter Care Teams Derrick Operator Relationship Specialty Start Date End Date Miguel Morrison PA [address] [place] [address] PCP - General Internal Medicine 02/16/20 documented as of this encounter
--- OUTSIDE RECORDS SUMMARY | 2024-12-06 16:36 | XMS_ITS | Encounter Summary ---
Author Organization [facility] Address [address] [place] [address] Care Team Providers Care Shot Hole Shooter Name Role Phone Miguel Morrison Primary Care Provider [phone] Reason for Visit * Reason Onset Date Comments faxed order 11/30/2024 Access [facility] - Delivered Meals Order 11/25/24 Encounter Details Date Type Department [facility] Team ([facility] Contact Info) Description 11/30/2024 Telephone Adult Medicine [address] [phone] Miguel Morrison PA [address] [place] [phone] Social History Tobacco Use Types Packs/Day Years [...] for your loved ones. For example, child nutrition assistant or elderly care for an older [...] Notes * Luz Maria Rodríguez MA - 12/06/2024 8:17 AM EDT Order faxed manually, signed and scanned. * Frances Stark MA - 11/30/2024 1:40 PM EDT Order on Dr. Mukherjee's desk for signature. * Saul Pickering - 11/30/2024 11:28 AM EDT [facility] - Delivered Meals Order dated 11/25/24 received. Please sign and fax to [phone] documented in this encounter Plan of Treatment Upcoming Encounters Date Type Department Care Team (Late st Contact Info) Description 12/15/2024 9:00 AM EDT Office Visit Adult Medicine [address] [phone] Lexi De Oliveira PA [address] [place], [place] 12/27/2024 2:15 PM EDT Office Visit Orthopedic Surgery - [place] [address] [phone] Manolo Trammell DPM [address] [phone] 01/02/2025 8:00 AM EST Appointment [facility] Endoscopy [address] [place] [phone] Rylan Castillo DO 175 [facility] 200 [place] [address] 01/30/2025 9:45 AM EST Office Visit Pulmonology - [place] 175 [facility] 200 [place] [phone] Jose Guillen MD 175 [facility] 200 [place] [address] 08/10/2025 1:00 PM EDT Office Visit Nephrology [facility] [address] [place] [phone] Karthik Marroquin MD 3550 [facility] [address] [place] [phone] documented as of this encounter Goals Goal [...] documented as of this encounter Care Teams Shot Hole Shooter Relationship Specialty Start Date End Date Miguel Morrison PA [address] [place] [address] PCP - General Internal Medicine 02/16/20 documented as of this encounter
== END 2024-12-06 13:32 | disposition home or self-care (01) ==
LOC: HO.HVNA 13:31
PROVIDERS: Visit Provider Internal Medicine Cardiovascular Disease
DX: I11.0 Hypertensive heart disease with heart failure (principal); I50.9 Heart failure, unspecified
CPT/HCPCS: 36415; 80048

== ENCOUNTER 2024-12-21 15:42 | Inpatient (IN) | payer MEDICARE, SELFPAY ==
--- NOTE | ~2024-12-21 | CT_ITS ---
CLINICAL HISTORY: GI bleed CT abdomen and pelvis without IV contrast. COMPARISON: None provided. FINDINGS: Mild bronchiectasis along the partially visualized lung bases. Distal esophageal wall thickening. Gastric banding present. Normal gallbladder. Noncontrast appearance of the liver, spleen, pancreas and adrenal glands are unremarkable. No hydronephrosis or hydroureter. No renal or ureteral calculus. Appendix is not seen. Moderate colonic stool burden. No bowel obstruction. No mesenteric or retroperitoneal lymphadenopathy. Moderate aortoiliac atherosclerotic vascular calcifications. Urinary bladder is unremarkable given degree of distention No adnexal mass. Rightward curvature of the lower lumbar spine. Right total hip arthroplasty partially visualized. Advanced degenerative changes of the left hip. Advanced multilevel spondylosis. No acute fracture. IMPRESSION: 1. No cause for patient's symptoms identified. No bowel obstruction. No evidence of diverticulitis. 2. Moderate colonic stool burden. This document has been electronically signed by: Anthony Weston MD on 12/21/2024 19:23:05
[2024-12-21 15:54] VITALS: BP 104/53; PULSE 60; RESP 18; TEMP 36.3; O2SAT 97; BMI 31.4
--- NOTE | 2024-12-21 15:54 | ED.GENADULT ---
HPI - General Adult General Chief complaint: GI Bleed Stated complaint: Dizziness Time Seen by Provider: 12/21/24 17:05 Source: patient Mode of arrival: ambulatory Limitations: no limitations History of Present Illness ED Provider: Dr. Gray [facility] narrative: This is a 84-year-old female history of AFib on Eliquis, COPD, CHF presented hospital today for evaluation of GI bleed for past 3 days. Patient stated that it appears to be coffee-ground that she has passing when she used the bathroom. She is also complaining of some bright blood as well. Patient has not complain of any abdominal pain. Patient has no epigastric pain. Denies any fever. Denies any dysuria. Patient states she does feel weak and fatigued more than usual. This is abnormal for her. At baseline patient does spend most of the day in the chair. She has trouble with her ambulation. Related Data Home Medications ?Medication ?Instructions ?Recorded ?Confirmed allopurinol 100 mg tablet 100 mg PO DAILY 01/30/20 10/19/24 bupropion HCl 150 mg 24 hr tablet, 150 mg PO DAILY@1700 01/30/20 10/19/24 extended release bupropion HCl 300 mg 24 hr tablet, 300 mg PO DAILY 01/30/20 10/19/24 extended release duloxetine 60 mg capsule,delayed 60 mg PO DAILY 01/30/20 10/19/24 release omeprazole 20 mg capsule,delayed 20 mg PO DAILY@0630 01/30/20 10/19/24 release potassium chloride 10 mEq 10 meq PO BID 01/30/20 10/19/24 capsule,extended release rosuvastatin 20 mg tablet 20 mg PO BEDTIME 01/30/20 10/19/24 apixaban 5 mg tablet 5 mg PO BID 08/17/20 10/19/24 diltiazem HCl 180 mg 180 mg PO DAILY 08/17/20 10/19/24 capsule,extended release 24 hr, controlled (DILT-XR) albuterol sulfate 90 mcg/actuation 2 puff inhalation Q6H PRN 06/13/21 10/19/24 aerosol inhaler Shortness Of Breath cholecalciferol (vitamin D3) 50 50 mcg PO BEDTIME 06/13/21 10/19/24 mcg (2,000 unit) tablet docusate sodium 50 mg capsule 50 mg PO DAILY PRN Constipation 06/13/21 10/19/24 ferrous sulfate 325 mg (65 mg 325 mg PO Q48H 06/13/21 10/19/24 iron) tablet furosemide 40 mg tablet 40 mg PO DAILY 06/13/21 10/19/24 budesonide 160 mcg-glycopyr 9 2 inh inhalation BID 10/19/24 10/19/24 mcg-formot 4.8 mcg/actuation HFA inhaler (Breztri Aerosphere) buspirone 7.5 mg tablet 7.5 mg PO BID 10/19/24 10/19/24 colchicine 0.6 mg tablet 0.6 mg PO DAILY PRN Gout 10/19/24 10/19/24 lisinopril 40 mg tablet 40 mg PO DAILY 10/19/24 10/19/24 uncfties-lkpq-ogqs 8 mg-folic 400 1 tab PO DAILY 10/19/24 10/19/24 mcg-K 50 mcg-lutein 300 mcg tablet (Multivitamin Women 50 Plus) Allergies Allergy/AdvReac Type Severity Reaction Status Date / Time fentanyl Allergy Difficulty Verified 12/21/24 15:59 Breathing Review of Systems Review of Systems: Pertinent review of systems as mentioned in HPI. All other system otherwise negative. [facility] Past Medical History [facility] Narrative: Medical history as mentioned in HPI Medical History Non-pressure chronic ulcer of skin of other sites with fat layer exposed COPD (chronic obstructive pulmonary disease) Pulmonary nodules Myocarditis Pneumonia Acute respiratory failure Gout Depression Obesity CHF (congestive heart failure) SABRINA on CPAP Diabetes mellitus Pulmonary embolism COVID-19 HTN (hypertension) Heart valve problem COPD (chronic obstructive pulmonary disease) Surgical History Previous back surgery History of aortic valve replacement with bioprosthetic valve Hx of laparoscopic gastric banding History of total right hip arthroplasty Family History Family History Sister Lung cancer Mother Renal cancer Other Diabetes mellitus Social History Social History Household Members: Spouse and Children Household Members Other:: lives with her and her son Housing: House Do you presently have visiting nurse or other home services: No Alcohol intake: never Patient Tobacco Use Status: Never used Tobacco Smoked in Last 30 Days: No Use of substances other than those prescribed or required for medical reasons: No Advance Directives: No Advance Directives Information Provided: Yes Nutrition Risks: No Nutritional Risk service: No Current occupational status: retired Physical Exam ED Exam Exam: General: Pleasant, no distress, interacting appropriately Head: Normacephalic, atraumatic ENT: oral mucosa moist, neck supple, no tracheal deviation, no conjunctival paleness identify exam. Tongue does not appear to be pale Cardiovascular: regular rate, regular rhythm, no murmurs, rubbing, gallops Respiratory: CTAB, no wheeze, rales, rhonchi Gastrointestinal: Soft, non distended, non tender, non guarding Extremities: There was some duskiness to the distal part of her feet. We will obtain a Doppler., trace pitting edema appreciated on exam Neurological: Awake and alert, no facial droop noted Skin: Warm and dry Psychiatric: Appropriate mood and thoughts Vital Signs: Vital Signs - 24 hr 12/21/24 15:54 12/21/24 18:10 Temperature 97.4 F 98.2 F Pulse Rate 60 51 Respiratory Rate 18 15 Blood Pressure 104/53 L 135/36 L Pulse Oximetry 97 97 Oxygen Delivery Method Room Air Room Air BMI result Body Mass Index 31.4 Course Course Course Narrative: This is a Rapid Medical Examination (RME) performed by Liberty Botello PA-C in triage. Full HPI, ROS, assessment and treatment plan per primary provider in the Main ED. Hx: 84 yo F hx afib and mitral valve replacement on eliquis here for eval of black tarry stools x3 days. also reports seeing bright red blood leakage from rectum on her diaper. recent constipation 1 wk ago, took mirlax w/ improvement. on iron supplements x a while. no abd pain. now feeling lightheaded/ dizzy Plan: labs, will defer imaging to primary provider Medications Administered Generic Name Dose Route Start Last Admin Trade Name Freq PRN Reason Stop Dose Admin Lactated Ringer's 1,000 mls @ 50 mls/hr 12/21/24 22:30 12/21/24 22:49 Lr IVCONT 50 mls/hr .Q20H ERICH Administration Sodium Chloride 3 ml 12/22/24 00:00 12/22/24 00:30 0.9 % Sodium Chloride Flush 3 Ml Syringe IVFLUSH Not Given QSHIFT ERICH Discontinued Medications Generic Name Dose Route Start Last Admin Trade Name Lina PRN Reason Stop Dose Admin Famotidine 20 mg 12/21/24 17:41 12/21/24 18:19 Famotidine/Pf 20 Mg/2 Ml Vial IVPUSH 12/21/24 17:42 20 mg ONCE ONE Administration Sodium Chloride 1,000 mls @ 999 mls/hr 12/21/24 17:45 12/21/24 21:03 Ns IV 12/21/24 18:45 Infused .Q1H1M ERICH Infusion Octreotide Acetate 100 mcg 12/21/24 17:40 12/21/24 18:19 Octreotide Acetate 100 Mcg/Ml Ampul IVPUSH 12/21/24 17:41 100 mcg ONCE ONE Administration Pantoprazole Sodium 80 mg 12/21/24 17:40 12/21/24 18:18 Pantoprazole Sodium 40 Mg/10 Ml Vial IVPUSH 12/21/24 17:41 80 mg ONCE ONE Administration Sodium Bicarbonate 50 meq 12/21/24 21:55 12/21/24 22:37 Sodium Bicarbonate 8.4% 50 Meq/50 Ml Syringe IVPUSH 12/21/24 21:56 50 meq ONCE ONE Administration Medical Decision Making Medical Decision Making MDM Narrative: 84-year-old female presented hospital today for 3 days of GI bleed. She is anticoagulated on Eliquis due to AFib. We will give IV Protonix, IV Pepcid, IV octreotide. CBC CMP type and screen will be obtained. Assess whether patient would require transfusion. Patient has no abdominal pain at this time. We will obtain a CT abdomen and pelvis to assess for any other occult cause of her GI bleeding including gastric mass, at the lower GI bleed. On my rectal exam the patient does have some pressure sores on her bilateral gluteus. Patient also has signs signs of hemorrhoids. No sign of tachycardic no sign of hypotension at this time we will continue to monitor the patient. OBS will be sent off. We will initiate a bolus IV fluid. The patient's occult blood stool test was positive. Hemoglobin low remains appropriate. CT imaging was negative for any signs of acute intra-abdominal pathology that may be explaining her symptoms. Suspect patient likely has a GI bleed. I did consult the GI team for the patient. Patient will be admitted to the hospital for further monitoring. I do not think patient has sepsis. Or infection at this time. Differential Diagnosis Differential Diagnoses: The differential diagnosis associated with the presentation includes Upper GI bleed, colitis, gastroenteritis, lower GI bleed, hemorrhoids Lab Data MDM Lab Attestation statement: I reviewed the patient's lab results. 12/21/24 20:59 12/21/24 20:59 Labs: Lab Results 12/21/24 12/21/24 12/21/24 Range/Units 16:08 17:49 18:14 WBC 18.2 H (4.8-10.8) X10*3/uL RBC 4.40 (4.20-5.50) X10*6/uL Hgb 13.2 (12.0-16.0) g/dl Hct 41.7 (37.0-47.0) % MCV 94.8 (80.0-98.0) fL MCH 30.0 (27.0-33.0) pg MCHC 31.7 (31.0-35.0) g/dl RDW 15.5 (11.0-16.0) % Plt Count 212 (160-400) X10*3/uL MPV 11.0 (9.4-12.3) fL Immature Gran % (Auto) 0.4 (0.0-0.4) % Neut % (Auto) 75.6 H (45-73) % Lymph % (Auto) 15.2 L (20-40) % [place] % (Auto) 7.7 (2-11) % Eos % (Auto) 0.9 (0-4) % Baso % (Auto) 0.2 (0-2) % Lymph # (Auto) 2.8 (1.2-4.9) X10*3/uL [place] # (Auto) 1.4 H (0.1-1.2) X10*3/uL Eos # (Auto) 0.2 (0.0-0.4) X10*3/uL Baso # (Auto) 0.0 (0.0-0.2) X10*3/uL Abs Immat Gran (auto) 0.07 H (0.00-0.03) X10*3/uL Absolute Neuts (auto) 13.7 H (2.0-8.3) x10*3/uL Absolute Nucleated RBC 0.000 (0.0-0.012) X10*3/uL Nucleated RBC % (auto) 0.0 (0.0-0.2) /100WBC Sodium 139 (135-145) mmol/L Potassium 5.3 H D (3.3-5.1) mmol/L Chloride 104 (96-108) mmol/L Carbon Dioxide 30 H (22-29) mmol/L Anion Gap 10 L (12-20) BUN 39 H (9-16) mg/dL Creatinine 1.67 H (0.5-1.4) mg/dL Estim Creat Clear Calc 23.1 Estimated GFR 29 Random Glucose 182 H (60-115) mg/dL Lactic Acid 1.7 (0.5-2.0) mmol/L Calcium 10.8 H (8.4-10.2) mg/dL Magnesium 2.3 (1.6-2.6) mg/dL Total Bilirubin 0.6 (0.0-1.0) mg/dL AST 32 H (5-31) U/L ALT 29 (0-31) U/L Alkaline Phosphatase 101 (39-117) U/L Total Protein 6.9 (6.5-8.0) g/dL Albumin 4.3 (3.5-5.0) g/dL Lipase 20 (8-78) U/L Urine Color Urine Appearance Urine pH (5.0-9.0) Ur Specific [place] (1.005-1.025) Urine Protein (Neg-Trace) mg/dL Urine Glucose (UA) (Negative) mg/dL Urine Ketones (Negative) mg/dL Urine Blood (Negative) Urine Nitrite (Negative) Ur Leukocyte Esterase (Negative) Urine RBC (0-2) /HPF Urine WBC (0-5) /HPF Ur Squamous Epith Cells (0-2) /HPF Urine Bacteria (None Seen) Hyaline Casts (0-2) /LPF Stool Occult Blood POSITIVE (NEGATIVE) Blood Type O Negative Antibody Screen NEGATIVE 12/21/24 12/21/24 Range/Units 18:26 20:59 WBC 15.8 H (4.8-10.8) X10*3/uL RBC 4.15 L (4.20-5.50) X10*6/uL Hgb 12.5 (12.0-16.0) g/dl Hct 39.3 (37.0-47.0) % MCV 94.7 (80.0-98.0) fL MCH 30.1 (27.0-33.0) pg MCHC 31.8 (31.0-35.0) g/dl RDW 15.5 (11.0-16.0) % Plt Count 191 (160-400) X10*3/uL MPV 10.9 (9.4-12.3) fL Immature Gran % (Auto) 0.3 (0.0-0.4) % Neut % (Auto) 74.2 H (45-73) % Lymph % (Auto) 16.0 L (20-40) % [place] % (Auto) 8.0 (2-11) % Eos % (Auto) 1.2 (0-4) % Baso % (Auto) 0.3 (0-2) % Lymph # (Auto) 2.5 (1.2-4.9) X10*3/uL [place] # (Auto) 1.3 H (0.1-1.2) X10*3/uL Eos # (Auto) 0.2 (0.0-0.4) X10*3/uL Baso # (Auto) 0.0 (0.0-0.2) X10*3/uL Abs Immat Gran (auto) 0.05 H (0.00-0.03) X10*3/uL Absolute Neuts (auto) 11.8 H (2.0-8.3) x10*3/uL Absolute Nucleated RBC 0.000 (0.0-0.012) X10*3/uL Nucleated RBC % (auto) 0.0 (0.0-0.2) /100WBC Sodium 142 (135-145) mmol/L Potassium 5.3 H (3.3-5.1) mmol/L Chloride 107 (96-108) mmol/L Carbon Dioxide 25 (22-29) mmol/L Anion Gap 15 (12-20) BUN 35 H (9-16) mg/dL Creatinine 1.52 H (0.5-1.4) mg/dL Estim Creat Clear Calc 25.4 Estimated GFR 33 Random Glucose 125 H (60-115) mg/dL Lactic Acid (0.5-2.0) mmol/L Calcium 9.8 D (8.4-10.2) mg/dL Magnesium (1.6-2.6) mg/dL Total Bilirubin (0.0-1.0) mg/dL AST (5-31) U/L ALT (0-31) U/L Alkaline Phosphatase (39-117) U/L Total Protein (6.5-8.0) g/dL Albumin (3.5-5.0) g/dL Lipase (8-78) U/L Urine Color Yellow Urine Appearance Clear Urine pH 5.5 (5.0-9.0) Ur Specific [place] 1.010 (1.005-1.025) Urine Protein Negative (Neg-Trace) mg/dL Urine Glucose (UA) Negative (Negative) mg/dL Urine Ketones Negative (Negative) mg/dL Urine Blood Negative (Negative) Urine Nitrite Negative (Negative) Ur Leukocyte Esterase Negative (Negative) Urine RBC 0-2 (0-2) /HPF Urine WBC 0-5 (0-5) /HPF Ur Squamous Epith Cells 0-2 (0-2) /HPF Urine Bacteria None Seen (None Seen) Hyaline Casts 3-5 (0-2) /LPF Stool Occult Blood (NEGATIVE) Blood Type Antibody Screen Independent Interpretation I performed an independent interpretation of an: CT Scan Radiology Impression Discussion of test interpretation with radiology: I have reviewed the radiologist's reading. Discharge Plan Discharge Clinical Impression: Acute upper GI bleed Patient Disposition: Admitted As Inpatient
[2024-12-21 16:15] LABS: Hematocrit 41.7 % (37.0-47.0); Hemoglobin 13.2 g/dl (12.0-16.0); Imm Gran Pct Auto 0.4 % (0.0-0.4); MANUAL DIFF FLAG NO; Mean Corpuscular HGB Conc 31.7 g/dl (31.0-35.0); Mean Corpuscular Hemoglobin 30.0 pg (27.0-33.0); Mean Corpuscular Volume 94.8 fL (80.0-98.0); Platelet Count 212 X10*3/uL (160-400); Red Blood Count 4.40 X10*6/uL (4.20-5.50); White Blood Count 18.2 X10*3/uL (4.8-10.8)
[2024-12-21 16:16] LABS: Imm Gran Abs Auto 0.07 X10*3/uL (0.00-0.03); Lymphocytes Absolute Auto 2.8 X10*3/uL (1.2-4.9); NRBC Abs Auto 0.000 X10*3/uL (0.0-0.012); NRBC Pct Auto 0.0 /100WBC (0.0-0.2)
[2024-12-21 16:29] LABS: Alanine Aminotransferase 29 U/L (0-31); Albumin Level 4.3 g/dL (3.5-5.0); Alkaline Phosphatase 101 U/L (39-117); Anion Gap 10 (12-20); Aspartate Amino Transferase 32 U/L (5-31); Blood Urea Nitrogen 39 mg/dL (9-16); Calcium 10.8 mg/dL (8.4-10.2); Carbon Dioxide 30 mmol/L (22-29); Chloride 104 mmol/L (96-108); Creatinine Clr Calc Pharmacy 23.1; Estimated Glomerular Filt Rate 29; Lipase 20 U/L (8-78); Magnesium 2.3 mg/dL (1.6-2.6); Potassium 5.3 mmol/L (3.3-5.1); Sodium 139 mmol/L (135-145); Total Protein 6.9 g/dL (6.5-8.0)
[2024-12-21 17:58] LABS: OBS Int Ctl Valid YES; OBS1 POSITIVE (NEGATIVE)
[2024-12-21 18:10] VITALS: BP 135/36; PULSE 51; RESP 15; TEMP 36.8; O2SAT 97
[2024-12-21] MEDS: Octreotide Acetate 100 MCG/ML AMPUL IVPUSH (18:19)
[2024-12-21 18:34] LABS: Appearance Urine Clear; Glucose Urine UA Negative (Negative); PH 5.5 (5.0-9.0); Specific Gravity - Urine 1.010 (1.005-1.025)
--- NOTE | 2024-12-21 19:46 | PC.NURSE ---
18gIV noted to be infiltrated. IV access removed. additional 20gIV placed in the right forearm - IVF continues to infuse at this time.
[2024-12-21 21:03] LABS: MANUAL DIFF FLAG NO
[2024-12-21 21:06] LABS: Hematocrit 39.3 % (37.0-47.0); Hemoglobin 12.5 g/dl (12.0-16.0); Imm Gran Abs Auto 0.05 X10*3/uL (0.00-0.03); Imm Gran Pct Auto 0.3 % (0.0-0.4); Lymphocytes Absolute Auto 2.5 X10*3/uL (1.2-4.9); Mean Corpuscular HGB Conc 31.8 g/dl (31.0-35.0); Mean Corpuscular Hemoglobin 30.1 pg (27.0-33.0); Mean Corpuscular Volume 94.7 fL (80.0-98.0); NRBC Abs Auto 0.000 X10*3/uL (0.0-0.012); NRBC Pct Auto 0.0 /100WBC (0.0-0.2); Platelet Count 191 X10*3/uL (160-400); Red Blood Count 4.15 X10*6/uL (4.20-5.50); White Blood Count 15.8 X10*3/uL (4.8-10.8)
[2024-12-21 21:20] LABS: Anion Gap 15 (12-20); Blood Urea Nitrogen 35 mg/dL (9-16); Calcium 9.8 mg/dL (8.4-10.2); Carbon Dioxide 25 mmol/L (22-29); Chloride 107 mmol/L (96-108); Creatinine Clr Calc Pharmacy 25.4; Estimated Glomerular Filt Rate 33; Potassium 5.3 mmol/L (3.3-5.1); Sodium 142 mmol/L (135-145)
--- OUTSIDE RECORDS SUMMARY | 2024-12-21 22:02 | XMS_ITS | Clinical Summary ---
Author Organization [facility] [address] [facility] Address [address] [place] [address] Phone Care Team Providers Care Boat Hand Name Role Phone Miguel Morrison Primary Care Provider [phone] Allergies Active Allergy Reactions Criticality Noted Date [...] day. 90 tablet 3 03/28/19 25 Active dilTIAZem CD (CARDIZEM CD) 180 mg 24 hr capsule Take 1 capsule (180 mg total) by mouth 1 (one) time each day. 90 each 2 04/08/19 25 Active freestyle (FreeStyle Lancets) 28 gauge lancets Use to check blood sugar daily 100 each 12 06/21/19 25 Active blood sugar diagnostic (FreeStyle Lite Strips) test strip Use to check blood sugar daily 100 each 12 06/21/19 25 Active busPIRone (BUSPAR) 7.5 mg tablet Take 1 tablet (7.5 mg total) by mouth 2 (two) times a day. 180 each 3 07/14/19 25 Active ferrous sulfate (Slow Fe) 137 mg (45 mg iron) tablet extended release Take 1 tablet by mouth 1 (one) time each day. 90 tablet 3 07/14/19 25 Active allopurinoL (ZYLOPRIM) 100 mg tablet TAKE 1 TABLET DAILY 90 tablet 3 09/02/19 25 Active lisinopril (PRINIVIL,ZES TRIL) 40 mg tablet TAKE 1 TABLET DAILY 90 tablet 3 09/02/19 25 Active Eliquis 5 mg tablet TAKE 1 TABLET TWICE A DAY 90 tablet 7 09/27/19 25 Active omeprazole (PriLOSEC) [address] capsule TAKE 1 CAPSULE TWICE A DAY 90 capsule 7 09/27/19 25 Active polyethylene glycol (Golytely) 236-22.74-6.7 4 -5.86 gram solution Take 4L by mouth once for one dose. May substitue any PEG. Starting at 2PM the day before your procedure drink 1 8oz glasses at your own pace until you complete half of the gallon. Finish 2nd half of the gallon at 8PM. 4000 mL 10/13/19 25 Active bisacodyL (DULCOLAX) 5 mg EC tablet Take 2 tablets by mouth right before beginning bowel prep. See instructions provided by the office 2 tablet 10/13/19 25 Active blood-glucose meter kit Used to check blood sugar daily 1 each 11/09/19 25 Active lancets lancets Used to check blood sugar daily 100 each 11 11/09/19 25 Active multivit-min/ ferrous fumarate (MULTI VITAMIN ORAL) [...] day. 90 each 1 11/25/19 25 Active furosemide (LASIX) 40 mg tablet Take 1 tablet (40 mg total) by mouth 2 (two) times a day. 60 each 2 12/01/19 25 Active potassium chloride (KLOR-CON M20) 20 mEq CR tablet Take 1 tablet (20 mEq total) by mouth 2 (two) times a day. Tablet may be swallowed whole (do not crush/chew/suck on) OR broken in half and each half swallowed separately OR dissolved (whole tablet) in ~4 ounces of water (allow ~2 minutes to dissolve, stir well and administer immediately). 60 each 2 12/01/19 25 Active budesonide-gl ycopyr-formot kyree (Breztri Aerosphere) 160-9-4.8 mcg/actuation HFA aerosol inhaler inhaler INHALE 2 PUFFS INTO THE LUNGS TWICE DAILY FOR 30 DAYS 10.7 g 11 12/06/19 25 2025 Active amoxicillin-c lavulanate (AUGMENTIN) 250-125 mg per tablet Take 1 tablet (250 mg total) by mouth every 12 (twelve) hours for 5 days. 10 tablet 12/17/19 25 2024 Active budesonide-gl ycopyr-formot kyree (Breztri Aerosphere) 160-9-4.8 mcg/actuation HFA aerosol inhaler inhaler Inhale 2 puffs by mouth 1 (one) time each day. 1 each 1 03/28/19 25 2024 Discontinued furosemide (LASIX) 40 mg tablet TAKE 1 TABLET DAILY 30 tablet 11 09/27/19 25 2024 Discontinued potassium chloride (MICRO-K) 10 mEq CR capsule Take 2 capsules (20 mEq total) by mouth 1 (one) time each day. 180 capsule 11/16/192024 Discontinued amoxicillin-c lavulanate (AUGMENTIN) 250-125 mg per tablet Take 1 tablet (250 mg total) by mouth every 12 (twelve) hours for 5 days. 10 tablet 12/17/19 25 2024 Discontinued Active Problems Problem Noted Date Diagnosed Date Tricuspid valve insufficiency 11/18/2024 Assessment & Plan (11/18/2024 2:46 PM EDT): Mild TR and mild aortic valve stenosis were both noted on her most recent echocardiogram from 10/20/2024. Will continue to monitor these on serial echocardiograms. Aortic valve stenosis 11/18/2024 Assessment & Plan (11/18/2024 2:46 PM EDT): As above. Coronary artery disease invo lving kaguy[place] coronary artery of kaguy[place] heart without angina pectoris 11/17/2024 Assessment & [...] echocardiogram completed while hospitalized on 10/20/2024 at [facility] showed a significantly increased gradient across the bioprosthetic mitral valve suggestive of significant stenosis; mean gradient was 13 at heart rate of 76 bpm. I have reviewed these findings with Dr. Dobbs who would like to review the echo images from [place] himself; I will reach out to the appropriate folks to get this done. She is aware of the need for antibiotic prophylaxis 30 to 60 minutes prior to dental procedures or cleanings. Acute exacerbation of CHF (c ongestive heart failure) ([facility] V24, [facility] V28) 11/16/2024 Chronic cough 12/22/2023 SOB (shortness [...] have asked her to follow-up with her retail parts pro for continued evaluation and treatment. We will continue to readdress this as indicated. Pulmonary hypertension ([facility] V24, [facility] V28 ) 11/18/2023 Assessment & Plan (11/18/2024 2:46 PM EDT): Peripheral edema 11/17/2023 Overview (01/04/2024): Last Assessment & Plan: As above; may be related to heart failure but we will evaluate for venous insufficiency with bilateral venous duplex study. Secondary hypercoagulable state ([facility] V24) Assessment & Plan (11/18/2024 2:46 PM [...] PM EDT): Diastolic congestive heart f ailure (CMS/[facility] V24, CMS/[facility] V28) 05/18/2020 Overview (01/04/2024): Last Assessment & [...] panel; Future Magnesium; Future Paroxysmal atrial fibrillation (CMS/[facility] V24, CMS /[facility] V28) 05/18/2020 Overview (01/04/2024): Unsuccessful MARIA ANTONIA [...] or for any head injury. Pulmonary embolism ([facility] V24, [facility] V28) Disease due to severe acute respiratory syndrome coronavirus 2 (SARS-CoV-2) 01/25/2020 Hyperparathyroidism ([facility] V24) 07/09/2017 Diabetes mellitus type 2 wit h neurological manifestations ([facility] V24, [facility] V28) 03/19/2015 Hyperlipidemia 02/24/2014 Overview (01/04/2024): Last [...] on duration rather than intensity. COPD, moderate ([facility] V24, [facility] V28) 2010 Overview (01/04/2024): last PFTs 03/2009; on 2.5-3 L portable oxygen with activity Last Assessment & Plan: I have requested she use her inhalers as ordered, including rescue inhaler, to see if this improves breathing at all. Continue supplemental oxygen with exertion. She will continue to follow with pulmonology. CKD (chronic kidney disease) stage 3, GFR 30-59 ml/min ([facility] V24, [facility] V28) 05/06/2010 Overview (01/04/2024): Last Assessment & Plan: Continues to follow with Dr. Marroquin as recommended. Will update metabolic panel after the completion of increased furosemide dosing x [address] with Dr Marroquin moving forward as indicated. Microalbuminuria 05/06/2010 Status post hip replacement 05/06/2010 Obstructive sleep apnea 08/09/2009 Overview (01/04/2024): Has mask Used infrequently. [facility] Home Sleep Apnea Test: Date 10/23/2017; Wt 221#; BMI 42; VIK 7, AI 0.4; HI 6.4; Unclassified apneas 0; Obstructive apneas 3; Central apneas 0; Mixed apneas 0; hypopneas 50; average oxygen saturation 90% (lowest 80% with saturations <88% for 5% or more of study) [facility] Sleep Center Polysomnogram treatment study. Date 11/14/2018. [...] own machine; she is working with her retail parts pro regarding this. Depression 09/07/2008 Gout 09/25/2005 Hypertension [...] Encounters Date Type Department Care Team Description 12/21/2024 Telephone Adult Medicine [address] [phone] Miguel Morrison PA 12/16/2024 Results Follow-Up Adult Medicine [address] [phone] Lexi De Oliveira PA 12/15/2024 9:00 AM EDT Office Visit Adult Medicine [address] [phone] Lexi De Oliveira PA Hospital discharge follow-up (Primary Dx); Chronic diastolic (congestive) heart failure (CMS/HCC V24, CMS/HCC V28); Pulmonary hypertension (CMS/HCC V24, CMS/HCC V28); Coronary artery disease involving kaguyuk coronary artery of kaguy[place] heart without angina pectoris; Paroxysmal atrial fibrillation (CMS/HCC V24, CMS/HCC V28); Primary hypertension; Other hyperlipidemia; Diabetes mellitus type 2 with neurological manifestations (CMS/HCC V24, CMS/HCC V28); COPD, moderate (CMS/HCC V24, CMS/HCC V28); Depressive disorder; Chronic gout without tophus, unspecified cause, unspecified site; Hyperparathyroidism (CMS/HCC V24); Memory loss; Stage II pressure ulcer of right buttock (CMS/HCC V24, CMS/HCC V28); Need for prophylactic vaccination and inoculation against influenza 12/15/2024 Results Follow-Up [facility] 102 300 [facility] 102 [place] [address] Belkys Lucas NP 12/15/2024 Telephone Adult Medicine [address] [phone] Miguel Morrison, PA 12/07/2024 Telephone [facility] 101 300 [facility] 101 [place] [address] Gisel Crain MA 12/06/2024 Telephone Adult Medicine [address] [phone] Miguel Morrison, PA 11/30/2024 Telephone Adult Medicine [address] [phone] Miguel Morrison, PA 11/30/2024 Telephone Adult Medicine [address] [phone] Miguel Morrison, PA 11/30/2024 Telephone Adult Medicine [address] [phone] Miguel Morrison, PA 11/29/2024 Telephone Adult Medicine [address] [phone] Miguel Morrison, PA 11/24/2024 Telephone [facility] 154 300 [facility] 154 [place] [address] Lorrie Avalos RN 11/24/2024 Telephone [facility] 101 300 [facility] 101 [place] [address] Gisel Rae MA 11/21/2024 Telephone [facility] Cardiology [facility] 154 300 [facility] 154 [place] [phone] Shari Guerrero NP 11/20/2024 Telephone Adult Medicine [address] [phone] Alphonse Amos MD 11/18/2024 Telephone Adult Medicine [address] [phone] Miguel Morrison PA 11/17/2024 12:40 PM EDT Office Visit [facility] 102 300 [facility] 102 [place] [phone] Shari Guerrero NP Chronic diastolic congestive heart failure (CMS/HCC V24, CMS/HCC V28) (Primary Dx); Pulmonary hypertension (CMS/HCC V24, CMS/HCC V28); Stenosis of prosthetic mitral valve, subsequent encounter; S/P mitral valve replacement; Nonrheumatic mitral valve stenosis; Tricuspid valve insufficiency, unspecified etiology; Aortic valve stenosis, etiology of cardiac valve disease unspecified; Coronary artery disease involving kaguy[place] coronary artery of kaguy[place] heart without angina pectoris; Hyperlipidemia, unspecified hyperlipidemia type; Primary hypertension; Paroxysmal atrial fibrillation (CMS/HCC V24, CMS/HCC V28); Secondary hypercoagulable state (CMS/HCC V24); Class 1 obesity due to excess calories with serious comorbidity and body mass index (BMI) of 33.0 to 33.9 in adult; SOB (shortness of breath); Hospital discharge follow-up 11/08/2024 Telephone Adult Medicine [address] [phone] Miguel Morrison, PA 11/02/2024 Telephone [facility] Cardiology [facility] 154 300 [facility] 154 [place] [phone] Venancio Dobbs MD 10/28/2024 Telephone Adult Medicine [address] [phone] Miguel Morrison PA 10/26/2024 5:30 PM EDT - 10/26/2024 11:59 PM EDT Hospital Encounter Radiology Department [address] [phone] Low back pain without sciatica, unspecified back pain laterality, unspecified chronicity; Dysuria; Stage 3 chronic kidney disease, unspecified whether stage 3a or 3b CKD ([facility] V24, [facility] V28); COPD, moderate ([facility] V24, [facility] V28); Depression, unspecified depression type; Diabetes mellitus type 2 with neurological manifestations ([facility] V24, [facility] V28); Hyperlipidemia, unspecified hyperlipidemia type; Gout, unspecified cause, unspecified chronicity, unspecified site; Primary hypertension; Hyperparathyroidism ([facility] V24); Microalbuminuria; Obstructive sleep apnea; Paroxysmal atrial fibrillation ([facility] V24, [facility] V28); Pulmonary hypertension ([facility] V24, [facility] V28) Discharge Disposition: Home or Self Care 10/26/2024 Telephone Adult Medicine [address] [phone] Amina Newberry PharmD 10/26/2024 Telephone [facility] Cardiology [facility] [address] [phone] Emily Kevin 10/21/2024 Telephone [facility] Cardiology [facility] 101 300 [facility] 101 [place] [address] Venancio Dobbs MD 10/21/2024 Telephone Gastroenterology [facility] [address] [place] [phone] Rylan Castillo DO 10/14/2024 9:53 AM EDT - 10/14/2024 11:59 PM EDT Hospital Encounter XRAY - [address] [phone] Low back pain without sciatica, unspecified back pain laterality, unspecified chronicity; Dysuria; Stage 3 chronic kidney disease, unspecified whether stage 3a or 3b CKD ([facility] V24, [facility] V28); COPD, moderate ([facility] V24, [facility] V28); Depression, unspecified depression type; Diabetes mellitus type 2 with neurological manifestations ([facility] V24, [facility] V28); Hyperlipidemia, unspecified hyperlipidemia type; Gout, unspecified cause, unspecified chronicity, unspecified site; Primary hypertension; Hyperparathyroidism ([facility] V24); Microalbuminuria; Obstructive sleep apnea; Paroxysmal atrial fibrillation ([facility] V24, [facility] V28); Pulmonary hypertension ([facility] V24, [facility] V28) Discharge Disposition: Home or Self Care 10/14/2024 9:00 AM EDT Office Visit Adult Medicine [address] [phone] Miguel Morrison PA Diabetes mellitus type 2 with neurological manifestations ([facility] V24, [facility] V28) (Primary Dx); Low back pain without sciatica, unspecified back pain laterality, unspecified chronicity; Dysuria; Stage 3 chronic kidney disease, unspecified whether stage 3a or 3b CKD ([facility] V24, [facility] V28); COPD, moderate ([facility] V24, [facility] V28); Depression, unspecified depression type; Hyperlipidemia, unspecified hyperlipidemia type; Gout, unspecified cause, unspecified chronicity, unspecified site; Primary hypertension; Hyperparathyroidism ([facility] V24); Microalbuminuria; Obstructive sleep apnea; Paroxysmal atrial fibrillation ([facility] V24, [facility] V28); Pulmonary hypertension ([facility] V24, [facility] V28) 09/28/2024 Telephone Gastroenterology - [place] 175 [facility] 175 [facility] 200 [place] [address] Patti Causey LPN from Last 3 Months Immunizations Immunization Administration Dates Next Due H1N1 Inj Preservative Free 03/22/2009 Influenza Quadravalent, 0.5m l (Fluad) 65yo and older 11/28/2022 Influenza trivalent, 0.5mL ( Fluad) 65yo and older 12/15/2024,12/09/2021,12/30/2018 Influenza trivalent, 0.5mL, preservative free (Fluarix; FluLaval; [...] Date Site/Laterality Comments OTHER SURGICAL HISTORY PROCEDURE: GA MADRID FACETECTOMY & FORAMOTOMY 1 VRT SGM [...] 30-59 ml/min (CMS/HCC V24, CMS/HCC V28) 05/06/2010 DX:CKD (chronic kidney disea se) stage 3, GFR 30-59 ml/min (HCC) Congestive heart failure (CH F) (CMS/HCC V24, CMS/HCC V28) 07/07/2012 DX:Congestive heart failure (CHF) ([facility]); COMMENT: ECHO: 06/2012: LVEF 60-65%, no focal wall motion abnormalitis, moderate diastolic dysfunction with dilated right ventricle and increased LA pressure, mod-severe pulm htn and mode/severe MS. Depressive disorder 09/07/2008 DX:Depressiv e disorder Diabetes mellitus type 2 wit h neurological manifestations ([facility] V24, [facility] V28) 03/19/2015 DX:Diabetes mellitus type 2 with [...] 07/2013) Microalbuminuria 05/06/2010 DX:Microalbumin uria COPD, moderate ([facility] V24, [facility] V28) 05/29/2010 DX:COPD, moderate ([facility]); COM MENT: last PFTs 03/2009; on 2.5-3 L portable oxygen with activity Morbid obesity ([facility] V24, [facility] V28) 10/02/2010 DX:Morbid obesity ([facility]) Obstructive sleep apnea 08/09/2009 DX:Obstr uctive sleep apnea; COMMENT: Has mask Used infreeequently S/P mitral valve replacement 10/26/2012 DX: S/P mitral valve replacement; COMMENT: 09/2012 Dr. Garay Status post hip replacement 05/06/2010 DX:S tatus post hip replacement Type 2 diabetes mellitus wit h renal manifestations, controlled ([facility] V24, [facility] V28) 12/15/2012 DX:Type 2 diabetes mellitus with renal manifestations, controlled ([facility]) Family History Medical History Relation Name Comments Ovarian cancer Aunt maternal (ova poly or uterine) Diabetes Maternal Grandmother Diabetes Mother Hypertension Mother Other cancer Mother kidney Thyroid disease Other cousin, mate rnal Lung cancer Sister 1 Diabetes Sister 2 Hypertension Sister 3 Relation Name Status Comments Aunt Father WWII Maternal Grandmother Mother (Age 70s) renal ce ll cancer dm Other Sister 1 Sister 2 [...] for your loved ones. For example, children's tutor or elderly care for an older adult? [...] Sign Reading Time Taken Comments Blood Pressure 117/62 12/15/2024 9:04 AM EDT Pulse 56 12/15/2024 9:04 AM EDT Temperature 36.8 C (98.3 F) 12/15/2024 9:04 AM EDT Respiratory Rate 13 12/15/2024 9:04 AM EDT Oxygen Saturation 96% 12/15/2024 9:37 AM EDT Inhaled Oxygen Concentration - - Weight 75.5 kg (166 lb 6.4 oz) 12/15/2024 9:04 A M EDT Height 152.4 cm (5') 12/15/2024 9:04 AM EDT Body Mass Index 32.5 12/15/2024 9:04 AM EDT Plan of Treatment Upcoming Encounters Date Type Department Care Team ([facility] st Contact Info) Description 12/27/2024 2:15 PM EDT Office Visit Orthopedic Surgery - [place] [address] [phone] Manolo Trammell, DPM 175 [facility] 250 [place] [phone] 01/02/2025 8:[address] [facility] [address] [place] [phone] Rylan Castillo DO 175 [facility] 200 [place] [address] 01/30/2025 9:45 AM EST Office Visit Pulmonology - [place] 175 [facility] 200 [place] [phone] Jose Guillen MD 175 [facility] 200 [place] [address] 03/17/2025 9:00 AM EST Office Visit Adult Medicine [place] [address] [place] [phone] Miguel Morrison PA 230 [place] [phone] 08/10/2025 1:00 PM EDT Office Visit Nephrology - [address] [phone] Karthik Marroquin MD 3550 [facility] 204 [place] [phone] Health Maintenance Due Date Last Done Comments Medicare Annual Wellness Visit 02/08/2022 Diabetes: Annual Foot Exam 10/08/2024 10/09/2023 COVID-19 Vaccine ( season) 2024 12/18/2021, 07/31/2021, 01/03/2021, Additional history exists Falls Risk Assessment 03/09/2025 03/09/2024 Diabetes: Blood Sugar Control Test (HGBA1C) 04/14/2025 10/12/2024, 07/06/2024, 03/09/2024, Additional history exists Diabetes: Annual Retina Eye Exam 10/03/2025 10/03/2024, 10/08/2023 Diabetes: Annual Urine Albumin-Creatinine Ratio (uACR) 10/12/2025 10/12/2024, 07/06/2024, 03/09/2024, Additional history exists Social Influencers of Health Screening 11/08/2025 11/08/2024 Diabetes: Annual GFR (Glomerular Filtration Rate) 12/15/2025 12/15/2024, 11/22/2024, 10/12/2024, Additional history exists Hypertension/CHF/CAD Annual BMP Blood Test 12/15/2025 12/15/2024, 11/22/2024, 10/12/2024, Additional history exists DTaP,Tdap,and Td Vaccines (4 - Td or Tdap) 09/15/2028 09/15/2018, 09/07/2008, 12/31/1997 Cholesterol Screening (Lipid Panel) 10/12/2029 10/12/2024, 07/06/2024, 03/09/2024, Additional history exists Osteoporosis Screening (Bone Density Screening) 08/12/2032 08/12/2017 Pneumococcal Vaccine: 50+ Years Completed 11/30/2017, 01/29/2015, 01/16/2014, Additional history exists Zoster Vaccines Completed 01/11/2019, 10/31, 09/13/2008 RSV Immunization Adult Patients Completed 12/06/2022 Depression Screening Completed 03/09/2024 Influenza Vaccine Completed 12/15/2024, , 12/09/2021, Additional history exists HIB Vaccines Aged Out No longer eligi [...] Procedure Name Priority Date/Time Associated Diagnosis Comments CULTURE URINE Routine 12/15/2024 10:18 AM EDT Low back pain without sciatica, unspecified back pain laterality, unspecified chronicity Dysuria Stage 3 chronic kidney disease, unspecified whether stage 3a or 3b CKD ([facility] V24, [facility] V28) COPD, moderate ([facility] V24, [facility] V28) Depression, unspecified depression type Diabetes mellitus type 2 with neurological manifestations ([facility] V24, [facility] V28) Hyperlipidemia, unspecified hyperlipidemia type Gout, unspecified cause, unspecified chronicity, unspecified site Primary hypertension Hyperparathyroidism ([facility] V24) Microalbuminuria Obstructive sleep apnea Paroxysmal atrial fibrillation ([facility] V24, [facility] V28) Pulmonary hypertension ([facility] V24, [facility] V28) URINALYSIS WITH REFLEX MICROSCOPIC Routine 12/15/2024 10:14 AM EDT Memory loss MAGNESIUM Routine 12/15/2024 10:14 AM EDT Hypomagnesemia B-TYPE NATRIURETIC PEPTIDE Routine 12/15/2024 10:14 AM EDT Diastolic congestive heart failure, unspecified HF chronicity ([facility] V24, [facility] V28) BASIC METABOLIC PANEL Routine 12/15/2024 10:14 AM EDT Diastolic congestive heart failure, unspecified HF chronicity ([facility] V24, [facility] V28) URINALYSIS WITH REFLEX MICROSCOPIC Routine 12/15/2024 10:14 AM EDT Memory loss EXTERNAL CLINICAL LAB Routine 12/06/2024 9:34 AM EDT EXTERNAL CLINICAL LAB Routine 11/28/2024 9:39 AM EDT BASIC METABOLIC PANEL Routine 11/22/2024 2:18 PM EDT Chronic diastolic congestive heart failure ([facility] V24, [facility] V28) Primary hypertension MAGNESIUM Routine 11/22/2024 2:18 PM EDT Chronic diastolic congestive heart failure ([facility] V24, [facility] V28) Primary hypertension EXTERNAL CLINICAL LAB 11/01/2024 MR LUMBAR SPINE WO CONTRAST Routine 10/26/2024 6:22 PM EDT Low back pain without sciatica, unspecified back pain laterality, unspecified chronicity Dysuria Stage 3 chronic kidney disease, unspecified whether stage 3a or 3b CKD ([facility] V24, [facility] V28) COPD, moderate ([facility] V24, [facility] V28) Depression, unspecified depression type Diabetes mellitus type 2 with neurological manifestations ([facility]CC V24, [facility] V28) Hyperlipidemia, unspecified hyperlipidemia type Gout, unspecified cause, unspecified chronicity, unspecified site Primary hypertension Hyperparathyroidism ([facility] V24) Microalbuminuria Obstructive sleep apnea Paroxysmal atrial fibrillation ([facility] V24, [facility] V28) Pulmonary hypertension ([facility] V24, [facility] V28) EXTERNAL CT REPORT 10/19/2024 URINALYSIS WITH REFLEX MICROSCOPIC Routine 10/14/2024 10:32 AM EDT Low back pain without sciatica, unspecified back pain laterality, unspecified chronicity Dysuria Stage 3 chronic kidney disease, unspecified whether stage 3a or 3b CKD ([facility] V24, [facility] V28) COPD, moderate ([facility] V24, [facility] V28) Depression, unspecified depression type Diabetes mellitus type 2 with neurological manifestations ([facility] V24, [facility] V28) Hyperlipidemia, unspecified hyperlipidemia type Gout, unspecified cause, unspecified chronicity, unspecified site Primary hypertension Hyperparathyroidism ([facility] V24) Microalbuminuria Obstructive sleep apnea Paroxysmal atrial fibrillation ([facility] V24, [facility] V28) Pulmonary hypertension ([facility] V24, [facility] V28) URINALYSIS WITH REFLEX MICROSCOPIC Routine 10/14/2024 10:32 AM EDT Low back pain without sciatica, unspecified back pain laterality, unspecified chronicity Dysuria Stage 3 chronic kidney disease, unspecified whether stage 3a or 3b CKD ([facility]/HCC V24, [facility] V28) COPD, moderate ([facility] V24, [facility] V28) Depression, unspecified depression type Diabetes mellitus type 2 with neurological manifestations ([facility] V24, [facility] V28) Hyperlipidemia, unspecified hyperlipidemia type Gout, unspecified cause, unspecified chronicity, unspecified site Primary hypertension Hyperparathyroidism ([facility] V24) Microalbuminuria Obstructive sleep apnea Paroxysmal atrial fibrillation ([facility] V24, [facility] V28) Pulmonary hypertension ([facility] V24, [facility] V28) XR LUMBAR SPINE 4+ VIEWS Routine 10/14/2024 10:08 AM EDT Low back pain without sciatica, unspecified back pain laterality, unspecified chronicity Dysuria Stage 3 chronic kidney disease, unspecified whether stage 3a or 3b CKD ([facility] V24, [facility] V28) COPD, moderate ([facility] V24, [facility] V28) Depression, unspecified depression type Diabetes mellitus type 2 with neurological manifestations ([facility] V24, [facility] V28) Hyperlipidemia, unspecified hyperlipidemia type Gout, unspecified cause, unspecified chronicity, unspecified site Primary hypertension Hyperparathyroidism ([facility] V24) Microalbuminuria Obstructive sleep apnea Paroxysmal atrial fibrillation ([facility] V24, [facility] V28) Pulmonary hypertension ([facility] V24, [facility] V28) CBC WITH AUTO DIFFERENTIAL Routine 10/12/2024 10:35 AM EDT Stage 3 chronic kidney disease, unspecified whether stage 3a or 3b CKD ([facility] V24, [facility] V28) COPD, moderate ([facility] V24, [facility] V28) Depression, unspecified depression type Diabetes mellitus type 2 with neurological manifestations ([facility] V24, [facility] V28) Gout, unspecified cause, unspecified chronicity, unspecified site Hyperparathyroidism ([facility] V24) Primary hypertension Hyperlipidemia, unspecified hyperlipidemia type Diastolic congestive heart failure, unspecified HF chronicity ([facility] V24, [facility] V28[facility] Pulmonary hypertension ([facility] V24, [facility] V28[facility] Paroxysmal atrial fibrillation ([facility] V24, [facility] V28) Obstructive sleep apnea Typical atrial flutter ([facility] V24, [facility] V28) URIC ACID Routine 10/12/2024 10:35 AM EDT Stage 3 chronic kidney disease, unspecified whether stage 3a or 3b CKD ([facility] V24, [facility] V28) COPD, moderate ([facility] V24, [facility] V28) Depression, unspecified depression type Diabetes mellitus type 2 with neurological manifestations ([facility] V24, [facility] V28) Gout, unspecified cause, unspecified chronicity, unspecified site Hyperparathyroidism ([facility] V24) Primary hypertension Hyperlipidemia, unspecified hyperlipidemia type Diastolic congestive heart failure, unspecified HF chronicity ([facility] V24, [facility] V28[facility] Pulmonary hypertension ([facility] V24, [facility] V28) Paroxysmal atrial fibrillation ([facility] V24, [facility] V28) Obstructive sleep apnea Typical atrial flutter ([facility] V24, [facility] V28) PARATHYROID HORMONE INTACT Routine 10/12/2024 10:35 AM EDT Stage 3 chronic kidney disease, unspecified whether stage 3a or 3b CKD ([facility] V24, [facility] V28) COPD, moderate ([facility] V24, [facility] V28) Depression, unspecified depression type Diabetes mellitus type 2 with neurological manifestations ([facility] V24, [facility] V28) Gout, unspecified cause, unspecified chronicity, unspecified site Hyperparathyroidism ([facility] V24) Primary hypertension Hyperlipidemia, unspecified hyperlipidemia type Diastolic congestive heart failure, unspecified HF chronicity ([facility] V24, [facility] V28) Pulmonary hypertension ([facility] V24, [facility] V28) Paroxysmal atrial fibrillation ([facility] V24, [facility] V28) Obstructive sleep apnea Typical atrial flutter ([facility] V24, [facility] V28) CBC AND DIFFERENTIAL Routine 10/12/2024 10:35 AM EDT Stage 3 chronic kidney disease, unspecified whether stage 3a or 3b CKD ([facility] V24, [facility] V28) COPD, moderate ([facility] V24, [facility] V28) Depression, unspecified depression type Diabetes mellitus type 2 with neurological manifestations ([facility] V24, [facility] V28) Gout, unspecified cause, unspecified chronicity, unspecified site Hyperparathyroidism ([facility] V24) Primary hypertension Hyperlipidemia, unspecified hyperlipidemia type Diastolic congestive heart failure, unspecified HF chronicity ([facility] V24, [facility] V28) Pulmonary hypertension ([facility] V24, [facility] V28[facility] Paroxysmal atrial fibrillation ([facility]/HCC V24, [facility] V28) Obstructive sleep apnea Typical atrial flutter ([facility] V24, [facility] V28) IRON AND TIBC Routine 10/12/2024 10:35 AM EDT Stage 3 chronic kidney disease, unspecified whether stage 3a or 3b CKD ([facility] V24, [facility] V28) COPD, moderate ([facility] V24, [facility] V28) Depression, unspecified depression type Diabetes mellitus type 2 with neurological manifestations ([facility] V24, [facility] V28) Gout, unspecified cause, unspecified chronicity, unspecified site Hyperparathyroidism ([facility] V24) Primary hypertension Hyperlipidemia, unspecified hyperlipidemia type Diastolic congestive heart failure, unspecified HF chronicity ([facility] V24, [facility] V28[facility] Pulmonary hypertension ([facility] V24, [facility] V28[facility] Paroxysmal atrial fibrillation ([facility] V24, [facility] V28) Obstructive sleep apnea Typical atrial flutter ([facility] V24, [facility] V28) HEMOGLOBIN A1C Routine 10/12/2024 10:35 AM EDT Stage 3 chronic kidney disease, unspecified whether stage 3a or 3b CKD ([facility] V24, [facility] V28) COPD, moderate ([facility] V24, [facility] V28) Depression, unspecified depression type Diabetes mellitus type 2 with neurological manifestations ([facility] V24, [facility] V28) Gout, unspecified cause, unspecified chronicity, unspecified site Hyperparathyroidism ([facility] V24) Primary hypertension Hyperlipidemia, unspecified hyperlipidemia type Diastolic congestive heart failure, unspecified HF chronicity ([facility] V24, [facility] V28[facility] Pulmonary hypertension ([facility] V24, [facility] V28[facility] Paroxysmal atrial fibrillation ([facility] V24, [facility] V28) Obstructive sleep apnea Typical atrial flutter ([facility] V24, [facility] V28) COMPREHENSIVE METABOLIC PANEL Routine 10/12/2024 10:35 AM EDT Stage 3 chronic kidney disease, unspecified whether stage 3a or 3b CKD ([facility] V24, [facility] V28) COPD, moderate ([facility] V24, [facility] V28) Depression, unspecified depression type Diabetes mellitus type 2 with neurological manifestations ([facility] V24, [facility] V28) Gout, unspecified cause, unspecified chronicity, unspecified site Hyperparathyroidism ([facility] V24) Primary hypertension Hyperlipidemia, unspecified hyperlipidemia type Diastolic congestive heart failure, unspecified HF chronicity ([facility] V24, [facility] V28[facility] Pulmonary hypertension ([facility] V24, [facility] V28) Paroxysmal atrial fibrillation ([facility] V24, [facility] V28) Obstructive sleep apnea Typical atrial flutter ([facility] V24, [facility] V28) MICROALBUMIN CREATININE URINE RATIO Routine 10/12/2024 10:35 AM EDT Stage 3 chronic kidney disease, unspecified whether stage 3a or 3b CKD ([facility] V24, [facility] V28) COPD, moderate ([facility] V24, [facility] V28) Depression, unspecified depression type Diabetes mellitus type 2 with neurological manifestations ([facility] V24, [facility] V28) Gout, unspecified cause, unspecified chronicity, unspecified site Hyperparathyroidism ([facility] V24) Primary hypertension Hyperlipidemia, unspecified hyperlipidemia type Diastolic congestive heart failure, unspecified HF chronicity ([facility] V24, [facility] V28) Pulmonary hypertension ([facility] V24, [facility] V28) Paroxysmal atrial fibrillation ([facility] V24, [facility] V28) Obstructive sleep apnea Typical atrial flutter ([facility] V24, [facility] V28) LIPID PANEL WITH REFLEX TO DIRECT LDL Routine 10/12/2024 10:35 AM EDT Stage 3 chronic kidney disease, unspecified whether stage 3a or 3b CKD ([facility] V24, [facility] V28) COPD, moderate ([facility] V24, [facility] V28) Depression, unspecified depression type Diabetes mellitus type 2 with neurological manifestations ([facility] V24, [facility] V28) Gout, unspecified cause, unspecified chronicity, unspecified site Hyperparathyroidism ([facility] V24) Primary hypertension Hyperlipidemia, unspecified hyperlipidemia type Diastolic congestive heart failure, unspecified HF chronicity ([facility] V24, [facility] V28) Pulmonary hypertension ([facility] V24, [facility] V28) Paroxysmal atrial fibrillation ([facility] V24, [facility] V28) Obstructive sleep apnea Typical atrial flutter ([facility] V24, [facility] V28) EXTERNAL DIABETIC RETINA EYE EXAM 10/03/2024 DXA BONE DENSITY STUDY 1+ SITS AXIAL SKEL Routine 08/12/2017 10:37 AM EDT Encounter for screening for osteoporosis Stage 3 chronic kidney disease ([facility] V24, [facility] V28) Hyperparathyroidism, unspecified ([facility] V24) from Last 3 Months or Most Recently Relevant to Health Maintenance Results * (ABNORMAL) Culture urine (12/15/2024 10:18 AM EDT) [facility] Culture, Urine 10,000-49,000 CFU/mL Streptococcus beta-hemolytic Group B(A) 12/16/2024 10:02 AM EDT [facility] Comment: Susceptibility testing is not routinely performed for Beta Streptococcus isolates since these organisms are predictably sensitive to Penicillin. If the Patient is not responding, is allergic to Penicillin, or further therapeutic information is requir ed, please consult an Infectious Disease Specialist. Urine Urine specimen obtained by clean catch procedure / Unknown Non-blood Collection / Unknown 12/15/2024 10:18 AM EDT 12/15/2024 10:18 AM EDT Miguel KWON LAB MICROBIOLOGY - GENERA L ORDERABLES Final Result [facility] [address] [place] [address], * (ABNORMAL) Urinalysis with reflex microscopic (12/15/2024 10:14 AM EDT) Only the most recent of2 resultswithin the time period is included. [facility] Specific [place] Urine 1.008 1.003 - 1.030 LAB URINALYSIS - AUTOMATED METHOD 12/15/2024 12:37 PM EDT [facility] pH, Urine 6.5 5.0 - 8.0 pH LAB URINALYSIS - AUTOMATED METHOD 12/15/2024 12:37 PM [facility] Leukocytes, Urine Trace(A) Negative LAB URINALYSIS - AUTOMATED METHOD 12/15/2024 12:37 PM [facility] Nitrite, Urine Negative Negative LAB URINALYSIS - AUTOMATED METHOD 12/15/2024 12:37 PM [facility] Protein, Urine Negative <=Trace mg/dL LAB URINALYSIS - AUTOMATED METHOD 12/15/2024 12:37 PM [facility] Glucose, Urine Negative Negative mg/dL LAB URINALYSIS - AUTOMATED METHOD 12/15/2024 12:37 PM [facility] Ketones, Urine Negative Negative mg/dL LAB URINALYSIS - AUTOMATED METHOD 12/15/2024 12:37 PM [facility] Urobilinogen, Urine 0.2 0.2 - 1.0 mg/dL LAB URINALYSIS - AUTOMATED METHOD 12/15/2024 12:37 PM [facility] Bilirubin, Urine Negative Negative LAB URINALYSIS - AUTOMATED METHOD 12/15/2024 12:37 PM [facility] Blood, Urine Negative Negative LAB URINALYSIS - AUTOMATED METHOD 12/15/2024 12:37 PM [facility] RBC, Urine 0.7 0 - 4 /HPF LAB URINALYSIS - AUTOMATED METHOD 12/15/2024 12:37 PM [facility] WBC, Urine 2.3 0 - 4 /HPF LAB URINALYSIS - AUTOMATED METHOD 12/15/2024 12:37 PM [facility] Squamous Epithelial, Urine 78(H) 0 - 60 /LPF LAB URINALYSIS - AUTOMATED METHOD 12/15/2024 12:37 PM [facility] Bacteria, Urine Negative Negative /HPF LAB URINALYSIS - AUTOMATED METHOD 12/15/2024 12:37 PM EDT [facility] Hyaline Casts, Urine 0.0 0 - 3 /LPF LAB URINALYSIS - AUTOMATED METHOD 12/15/2024 12:37 PM EDT [facility] Urine Urine specimen obtained by clean catch procedure / Unknown Non-blood Collection / Unknown 12/15/2024 10:14 AM EDT 12/15/2024 10:15 AM EDT Lexi De Oliveira PA LAB URINE ORDERABLES Final Resul t Performing Organization Address [facility]/ZIP Co de Phone Number [facility] [address] [place] [address], * (ABNORMAL) B-type natriuretic peptide (12/15/2024 10:14 AM EDT) BNP 165(H) <=100 pcg/mL LAB CHEMISTRY METHOD 12/15/2024 12:57 PM EDT [facility] Blood Venous blood specimen / Unknown Venipuncture / Unknown 12/15/2024 10:14 AM EDT 12/15/2024 10:15 AM EDT Shari Guerrero NP LAB BLOOD ORDERABLES Final Result Performing Organization Address [facility]/ZIP Co de Phone Number [facility] [address] [place] [address], * Magnesium (12/15/2024 10:14 AM EDT) Only the most recent of2 resultswithin the time period is included. Magnesium 2.4 1.9 - 2.6 mg/dL LAB CHEMISTRY METHOD 12/15/2024 1:21 PM EDT [facility] Blood Venous blood specimen / Unknown Venipuncture / Unknown 12/15/2024 10:14 AM EDT 12/15/2024 10:18 AM EDT Shari Guerrero NP LAB BLOOD ORDERABLES Final Result [facility] [address] [place] [address], * (ABNORMAL) Basic metabolic panel (12/15/2024 10:14 AM EDT) Only the most recent of2 resultswithin the time period is included. Pathologist [facility] [place] Sodium 138 133 - 145 mmol/L LAB CHEMISTRY METHOD 12/15/2024 1:54 PM EDT [facility] Potassium 5.1 3.5 - 5.5 mmol/L LAB CHEMISTRY METHOD 12/15/2024 1:54 PM [facility] Chloride 102 96 - 110 mmol/L LAB CHEMISTRY METHOD 12/15/2024 1:54 PM [facility] CO2 31 21 - 32 mmol/L LAB CHEMISTRY METHOD 12/15/2024 1:54 PM [facility] Anion Gap 5 3 - 11 LAB CHEMISTRY METHOD 12/15/2024 1:54 PM [facility] Glucose 106(H) 70 - 100 mg/dL LAB CHEMISTRY METHOD 12/15/2024 1:54 PM [facility] BUN 43(H) 5 - 25 mg/dL LAB CHEMISTRY METHOD 12/15/2024 1:54 PM [facility] Comment:Results verified by repeat testing Creatinine 1.75(H) 0.50 - 1.10 mg/dL LAB CHEMISTRY METHOD 12/15/2024 1:54 PM [facility] Comment:Results verified by repeat testing eGFR 29(L) >=60 mL/min/1. 73m2 LAB CHEMISTRY METHOD 12/15/2024 1:54 PM [facility] Comment:Calculation based on the Chronic Kidney Disease Epidemiology Collaboration (CKD-EPI) equation refit without adjustment for race. BUN/Creatinine Ratio 24.6 LAB CHEMISTRY METHOD 12/15/2024 1:54 PM EDT [facility] Calcium 10.8(H) 8.5 - 10.5 mg/dL LAB CHEMISTRY METHOD 12/15/2024 1:54 PM EDT [facility] Blood Venous blood specimen / Unknown Venipuncture / Unknown 12/15/2024 10:14 AM EDT 12/15/2024 10:18 AM EDT Belkys Lucas NP LAB BLOOD ORDERABLES Final Resu lt [facility] [address] [place] [address], * External clinical lab (12/06/2024 9:34 AM EDT) Only the most recent of3 resultswithin the time period is included. Historical Provider LAB BLOOD ORDERABLES Dede l Result * MR Lumbar Spine wo Contrast [...] Signed Date: 10/27/2024 17:39 ET Workstation ID: [id number] Transcribed By: Self Edit Transcribed Date: 10/27/2024 [...] Signed Date: 10/27/2024 17:39 ET Workstation ID: [id number] Transcribed By: Self Edit Transcribed Date: 10/27/2024 09:13 ET Miguel KWON IMG MRI PROCEDURES Final Result * External CT Report (10/19/2024) Anatomical Region Laterality Modality Computed Tomogra phy Provider [facility]G CT PROCEDURES Final Result * XR Lumbar Spine 4+ Views (10/14/2024 10:08 AM EDT) Anatomical Region Laterality Modality Spine, L-spine Radiographic Sravanthi ging 10/14/2024 11:5 3 AM EDT Impressions 10/14/2024 12:01 PM EDT Scoliosis. Extensive degenerative changes. Grade 1 spondylolisthesis at L4-5. POS - [id number] -------- FINAL REPORT -------- Dictated By: Lorena Conroy Dictated Date: 10/14/2024 11:53 ET Assigned Physician: Lorena Conroy Reviewed and Electronically Signed By: Lorena Conroy Signed Date: 10/14/2024 12:01 ET Workstation ID: [id number] Transcribed By: Self Edit Transcribed Date: 10/14/2024 [...] imaged right hip prosthesis. Procedure Note Lorena Conory MD - 10/14/2024 EXAM: Lumbar spine x-ray [...] changes. Grade 1 spondylolisthesis atL4-5. POS - [id number] -------- FINAL REPORT -------- Dictated By: Lorena Conroy Dictated Date: 10/14/2024 11:53 ET Assigned Physician: Lorena Conroy Reviewed and Electronically Signed By: Lorena Conroy Signed Date: 10/14/2024 12:01 ET Workstation ID: [id number] Transcribed By: Self Edit Transcribed Date: 10/14/2024 11:53 ET us Miguel KWON IMG XR PROCEDURES Final R esult * Lipid panel with reflex to direct LDL (10/12/2024 10:35 AM EDT) Cholesterol 141 0 - 200 mg/dL LAB CHEMISTRY METHOD 10/12/2024 3:23 PM EDT [facility] Triglycerides 104 0 - 150 mg/dL LAB CHEMISTRY METHOD 10/12/2024 3:23 PM EDT [facility] HDL 68 >=40 mg/dL LAB CHEMISTRY METHOD 10/12/2024 3:23 PM EDT [facility] LDL Calculated 52 0 - 100 mg/dL LAB CHEMISTRY METHOD 10/12/2024 3:23 PM EDT [facility] Comment:Estimated LDL Calcul ated using equation: Total cholesterol - HDL cholesterol - (Triglycerides/5) VLDL Cholesterol Jonathan 20.8 mg/dL LAB CHEMISTRY METHOD 10/12/2024 3:23 PM EDT [facility] Non HDL Chol. (LDL+VLDL) 73 <145 mg/dL LAB CHEMISTRY METHOD 10/12/2024 3:23 PM EDT [facility] Chol/HDL Ratio 2.1 0.0 - 4.4 LAB CHEMISTRY METHOD 10/12/2024 3:23 PM EDT [facility] Blood Venous blood specimen / Unknown Venipuncture / Unknown 10/12/2024 10:35 AM EDT 10/12/2024 10:35 AM EDT us Miguel KWON LAB BLOOD ORDERABLES Dede craven Result [facility] [address] [place] [address], * (ABNORMAL) CBC auto differential (10/12/2024 10:35 AM EDT) WBC 14.8(H) 4.8 - 10.8 K/mcL LAB HEMETOLOGY METHOD 10/12/2024 1:53 PM EDT [facility] RBC 4.20 3.80 - 4.80 M/mcL LAB HEMETOLOGY METHOD 10/12/2024 1:53 PM EDT [facility] Hemoglobin 12.3 11.5 - 16.0 g/dL LAB HEMETOLOGY METHOD 10/12/2024 1:53 PM EDT [facility] Hematocrit 39.6 35.0 - 47.0 % LAB HEMETOLOGY METHOD 10/12/2024 1:53 PM EDT [facility] MCV 93.6 79.0 - 98.0 FL LAB HEMETOLOGY METHOD 10/12/2024 1:53 PM EDT [facility] MCH 29.1 27.0 - 32.0 pcg LAB HEMETOLOGY METHOD 10/12/2024 1:53 PM EDT [facility] MCHC 31.1(L) 32.0 - 37.0 g/dL LAB HEMETOLOGY METHOD 10/12/2024 1:53 PM EDT [facility] RDW 17.7(H) 11.0 - 15.0 % LAB HEMETOLOGY METHOD 10/12/2024 1:53 PM [facility] Platelets 279 130 - 400 K/mcL LAB HEMETOLOGY METHOD 10/12/2024 1:53 PM [facility] MPV 11.5(H) 7.0 - 11.0 FL LAB HEMETOLOGY METHOD 10/12/2024 1:53 PM [facility] NRBC 0.0 <1.0 % LAB HEMETOLOGY METHOD 10/12/2024 1:53 PM [facility] NRBC Absolute 0.00 <0.10 K/mcL LAB HEMETOLOGY METHOD 10/12[facility]24 [facility] Neutrophils Relative 72.5 % LAB HEMETOLOGY METHOD 10/12/2024 1:53 PM [facility] Lymphocytes Relative 15.4 % LAB HEMETOLOGY METHOD 10/12/2024 1:53 PM [facility] Monocytes Relative 9.4 % LAB HEMETOLOGY METHOD 10/12/2024 1:53 PM [facility] Eosinophils Relative 2.0 % LAB HEMETOLOGY METHOD 10/12/2024 1:53 PM [facility] Basophils Relative 0.3 % LAB HEMETOLOGY METHOD 10/12/2024 1:53 PM [facility] Immature Granulocytes Relative 0.4 % LAB HEMETOLOGY METHOD 10/12/2024 1:53 PM [facility] Neutrophils Absolute 10.70(H) 1.50 - 7.00 K/mcL LAB HEMETOLOGY METHOD 10/12/2024 1:53 PM EDT [facility] Lymphocytes Absolute 2.27 1.00 - 5.00 K/mcL LAB HEMETOLOGY METHOD 10/12/2024 1:53 PM EDT [facility] Monocytes Absolute 1.38(H) 0.20 - 1.00 K/[facility] LAB HEMETOLOGY METHOD 10/12/2024 1:53 PM EDT [facility] Eosinophils Absolute 0.29 0.00 - 0.50 K/[facility] LAB HEMETOLOGY METHOD 10/12/2024 1:53 PM EDT [facility] Basophils Absolute 0.05 0.00 - 0.20 K/[facility] LAB HEMETOLOGY METHOD 10/12/2024 1:53 PM EDT [facility] Immature Granulocytes Absolute 0.06(H) 0.00 - 0.03 K/[facility] LAB HEMETOLOGY METHOD 10/12/2024 1:53 PM EDT [facility] Blood Venous blood specimen / Unknown Venipuncture / Unknown 10/12/2024 10:35 AM EDT 10/12/2024 10:35 AM EDT Miguel KWON LAB BLOOD ORDERABLES Dede l Result [facility] [address] [place] [address], * (ABNORMAL) Iron and TIBC (10/12/2024 10:35 AM EDT) Iron 47 40 - 150 mcg/dL LAB CHEMISTRY METHOD 10/12/2024 3:23 PM EDT [facility] TIBC 351 250 - 450 mcg/dL LAB CHEMISTRY METHOD 10/12/2024 3:23 PM EDT [facility] Iron Saturation 13(L) 15 - 50 % LAB CHEMISTRY METHOD 10/12/2024 3:23 PM EDT [facility] Blood Venous blood specimen / Unknown Venipuncture / Unknown 10/12/2024 10:35 AM EDT 10/12/2024 10:35 AM EDT Miguel KWON LAB BLOOD ORDERABLES Dede l Result Performing Organization Address [facility]/ZIP Co de Phone Number [facility] [address] [place] [address], [place] [phone] * (ABNORMAL) Microalbumin creatinine urine ratio (10/12/2024 10:35 AM EDT) Creatinine, Urine 85.0 mg/dL LAB CHEMISTRY METHOD 10/12/2024 2:39 PM EDT [facility] Microalb, Ur 80.3(H) 0.0 - 29.0 mg/L LAB CHEMISTRY METHOD 10/12/2024 2:39 PM EDT [facility] Microalb/Crea t Ratio 94(H) <30 mg/g creat LAB CHEMISTRY METHOD 10/12/2024 2:39 PM EDT [facility] Urine Urine specimen obtained by clean catch procedure / Unknown Non-blood Collection / Unknown 10/12/2024 10:35 AM EDT 10/12/2024 10:35 AM EDT Miguel Morrison ME LAB URINE ORDERABLES Dede l Result Performing Organization Address City/[facility]/ZIP Co de Phone Number [facility] [address] [place] [address], [place] [phone] * Uric acid (10/12/2024 10:35 AM EDT) Uric Acid 3.5 3.1 - 7.8 mg/dL LAB CHEMISTRY METHOD 10/12/2024 3:23 PM EDT [facility] Blood Venous blood specimen / Unknown Venipuncture / Unknown 10/12/2024 10:35 AM EDT 10/12/2024 10:35 AM EDT Miguel KWON LAB BLOOD ORDERABLES Dede l Result [facility] [address] [place] [address], [place] [phone] * Parathyroid hormone intact (10/12/2024 10:35 AM EDT) [facility] PTH 68.7 18.5 - 88.0 pcg/mL LAB CHEMISTRY METHOD 10/12/2024 4:29 PM EDT [facility] Blood Venous blood specimen / Unknown Venipuncture / Unknown 10/12/2024 10:35 AM EDT 10/12/2024 10:35 AM EDT Miguel KWON LAB BLOOD ORDERABLES Dede l Result Performing Organization Address [facility]/ZIP Co de Phone Number [facility] [address] [place] [address], [place] [phone] * Hemoglobin A1c (10/12/2024 10:35 AM EDT) [facility] Hemoglobin A1C 5.8 <6.5 % LAB CHEMISTRY METHOD 10/12/2024 3:09 PM EDT [facility] Mean Bld Glu Estim. 120 mg/dL LAB CHEMISTRY METHOD 10/12/2024 3:09 PM EDT [facility] Blood Venous blood specimen / Unknown Venipuncture / Unknown 10/12/2024 10:35 AM EDT 10/12/2024 10:35 AM EDT Miguel KWON LAB BLOOD ORDERABLES Dede l Result Performing Organization Address City/[facility]/ZIP Co de Phone Number [facility] [address] [place] [address], [place] [phone] * (ABNORMAL) Comprehensive metabolic panel (10/12/2024 10:35 AM EDT) Sodium 141 133 - 145 mmol/L LAB CHEMISTRY METHOD 10/12/2024 3:30 PM [facility] Potassium 4.2 3.5 - 5.5 mmol/L LAB CHEMISTRY METHOD 10/12/2024 3:30 PM [facility] Chloride 107 96 - 110 mmol/L LAB CHEMISTRY METHOD 10/12/2024 3:30 PM [facility] CO2 29 21 - 32 mmol/L LAB CHEMISTRY METHOD 10/12/2024 3:30 PM [facility] Anion Gap 5 3 - 11 LAB CHEMISTRY METHOD 10/12/2024 3:30 PM [facility] Glucose 88 70 - 100 mg/dL LAB CHEMISTRY METHOD 10/12/2024 3:30 PM [facility] BUN 9 5 - 25 mg/dL LAB CHEMISTRY METHOD 10/12/2024 3:30 PM [facility] Creatinine 1.02 0.50 - 1.10 mg/dL LAB CHEMISTRY METHOD 10/12/2024 3:30 PM [facility] eGFR 55(L) >=60 mL/min/1. 73m2 LAB CHEMISTRY METHOD 10/12/2024 3:30 PM [facility] Comment:Calculation based on the Chronic Kidney Disease Epidemiology Collaboration (CKD-EPI) equation refit without adjustment for race. BUN/Creatinine Ratio 8.8 LAB CHEMISTRY METHOD 10/12/2024 3:30 PM [facility] Calcium 9.9 8.5 - 10.5 mg/dL LAB CHEMISTRY METHOD 10/12/2024 3:30 PM [facility] AST (SGOT) 19 10 - 42 unit/L LAB CHEMISTRY METHOD 10/12/2024 3:30 PM [facility] ALT (SGPT) 22 10 - 60 unit/L LAB CHEMISTRY METHOD 10/12/2024 3:30 PM EDT [facility] Alkaline Phosphatase 139(H) 42 - 121 unit/L LAB CHEMISTRY METHOD 10/12/2024 3:30 PM EDT [facility] Total Protein 6.5 6.0 - 8.0 g/dL LAB CHEMISTRY METHOD 10/12/2024 3:30 PM EDT [facility] Albumin 3.8 3.2 - 5.0 g/dL LAB CHEMISTRY METHOD 10/12/2024 3:30 PM EDT [facility] Total Bilirubin 0.6 0.0 - 1.4 mg/dL LAB CHEMISTRY METHOD 10/12/2024 3:30 PM EDT [facility] Blood Venous blood specimen / Unknown Venipuncture / Unknown 10/12/2024 10:35 AM EDT 10/12/2024 10:35 AM EDT Miguel KWON LAB BLOOD ORDERABLES Dede l Result [facility] [address] [place] [address], * External Diabetic Retina Eye Exam Report [...] classified as having normal bone density. [facility] Department of Internal Medicine recommends [...] classified as having normal bone density. [facility] Department of Internal Medicine recommendsusing [...] Diagnosed Date Autogenerated Problem 12/04/2024 Insurance MEDICARE [facility] Care Teams Boat Hand Relationship Specialty Start Date End Date Miguel Morrison PA [address] [place] [address] PCP - General Internal Medicine 02/16/20
--- OUTSIDE RECORDS SUMMARY | 2024-12-21 22:02 | XMS_ITS | Encounter Summary ---
Author Organization [facility] Address [address] [place] [address] Care Team Providers Care Media Relations Specialist Name Role Phone Miguel Morrison Primary Care Provider [phone] Reason for Visit * Reason Onset Date Comments faxed order 11/30/2024 Access Care Part ners - Delivered Meals Order 11/25/24 Encounter Details Date Type Department Care Team ([facility] Contact Info) Description 11/30/2024 Telephone Adult Medicine [address] [phone] Miguel Morrison PA [address] [place] [phone] Social History Tobacco Use Types Packs/Day Years [...] your loved ones. For example, child development director or elderly care for an older [...] Saul Pickering - 11/30/2024 11:28 AM EDT [facility] - Delivered Meals Order dated 11/25/24 received. Please sign and fax to [phone] documented in this encounter Plan of Treatment Upcoming Encounters Date Type Department Care Team (Late st Contact Info) Description 12/27/2024 2:15 PM EDT Office Visit Orthopedic Surgery - [place] [address] [phone] Manolo Trammell DPM [address] [phone] 01/02/2025 8:00 AM EST Appointment Endoscopy [address] [place] [phone] Rylan Castillo DO [address] [address] 01/30/2025 9:45 AM EST Office Visit Pulmonology - [place] [address] [phone] Jose Guillen MD [address] [address] 03/17/2025 9:00 AM EST Office Visit Adult Medicine East - [address] [phone] Miguel Morrison PA [address] [place] [phone] 08/10/2025 1:00 PM EDT Office Visit Nephrology - [address] [phone] Karthik Marroquin MD [address] [phone] documented as of this encounter Goals Goal [...] documented as of this encounter Care Teams Media Relations Specialist Relationship Specialty Start Date End Date Miguel Morrison PA [address] [place] [address] PCP - General Internal Medicine 02/16/20 documented as of this encounter
--- OUTSIDE RECORDS SUMMARY | 2024-12-21 22:02 | XMS_ITS ---
Author Organization [facility] [address] [facility] Address [address] [place] [address] Phone Care Team Providers Care Airplane Inspector Name Role Phone Miguel Morrison Primary Care Provider [phone] [phone] Chronic Care Management Status:Ongoing (Active) Start date:10/26/2024 Enrollment date:11/08/2024 Enrollment reason:Referred by Care Team Related social drivers of health:Housing Instability, Food Access & Nutrition, Access to Healthcare, TH Health Literacy, Financial Risk, Transportation, Social Isolation, Food Risk Case Team Name Relationship Phone Na Talbert RN(Responsible Staff) Business Change Manager Continued Care and Services Coordination
--- OUTSIDE RECORDS SUMMARY | 2024-12-21 22:02 | XMS_ITS | Encounter Summary ---
Author Organization [facility] Address [address] [place] [address] Care Team Providers Care Appellate Court Clerk Name Role Phone Miguel Morrison Primary Care Provider [phone] Reason for Visit * Reason Onset Date Comments [facility] 12/21/2024 Encounter Details Date Type Department Care Team ([facility] st Contact Info) Description 12/21/2024 Telephone Adult Medicine [address] [phone] Miguel Morrison PA [address] [place] [phone] Social History Tobacco Use Types Packs/Day Years [...] your loved ones. For example, child development teacher or elderly care for an older [...] as of this encounter Progress Notes * Alphonse Amos MD - 12/21/2024 4:12 PM EDT Yes agree with the plan. * Fazal Johnson LPN - 12/21/2024 4:06 PM EDT See FYI from [facility] * Ruthann Sumner - 12/21/2024 3:03 PM EDT [facility] Full name of caller: Selam The caller is A nurse Is the caller at the patients home?: yes Reason for call: Caller is sending the patient to [facility] ER, daughter will bring her. Black stools for 3 days, poor appetite, toes have a blue hue, dizziness today. Does caller need an urgent call back? yes Was CONTACT Telephone # obtained above?: yes Fax #: documented in this encounter Plan of Treatment Upcoming Encounters Date Type Department Care Team (Late st Contact Info) Description 12/27/2024 2:15 PM EDT Office Visit Orthopedic Surgery - [place] [address] [phone] Manolo Trammell DPM 175 [facility] [address] [place] [phone] 01/02/2025 8:00 AM EST Appointment [facility] Endoscopy [address] [place] [phone] Rylan Castillo DO [address] [address] 01/30/2025 9:45 AM EST Office Visit Pulmonology - [place] 175 [facility] [address] [place] [address] Jose Guillen MD 175 [facility] [address] [place] [address] 03/17/2025 9:00 AM EST Office Visit Adult Medicine [facility] - [address] [phone] Miguel Morrison PA [address] [place] [phone] 08/10/2025 1:00 PM EDT Office Visit Nephrology [address] [phone] Karthik Marroquin MD [address] [phone] documented as of this encounter Goals Goal Patient Goal Type Associated Problems Recent Progress Patient-Stated? Author Adherence to Treatment Plan General No Na Talbert, ABDOULAYE Note: To to weigh herself daily Pt to continue to follow a low salt diet documented as of this encounter Visit Diagnoses Not on filedocumented in this encounter Additional Health Concerns Active Problems Noted Date Diagnosed Date Autogenerated Problem 12/04/2024 Assessment Noted Time PHQ-9 Depression Total Score: 0 03/09/19 25 8:56 AM EST documented as of this encounter Care Teams Appellate Court Clerk Relationship Specialty Start Date End Date Miguel Morrison PA [address] [place] [address] PCP - General Internal Medicine 02/16/20 documented as of this encounter
--- OUTSIDE RECORDS SUMMARY | 2024-12-21 22:02 | XMS_ITS | Encounter Summary ---
Author Organization [facility] Address [address] [place] [address] Care Team Providers Care Air Boatswain Name Role Phone Miguel Morrison Primary Care Provider [phone] [phone] Encounter Details Date Type Department Care Team (Late st Contact Info) Description 12/16/2024 Results Follow-Up Adult Medicine [facility] [address] [place] [phone] Lexi De Oliveira PA [address] [place] [phone] Social History Tobacco Use Types Packs/Day Years [...] care for your loved ones. For example, attendant children's institution or elderly care for an older adult? [...] Refills Last Filled Start Date End Date amoxicillin-clavul anate (AUGMENTIN) 250-125 mg per tablet Take 1 tablet (250 mg total) by mouth every 12 (twelve) hours for 5 days. 10 tablet 12/16/2024 12/21/2024 amoxicillin-clavul anate (AUGMENTIN) 250-125 mg per tablet Take 1 tablet (250 mg total) by mouth every 12 (twelve) hours for 5 days. 10 tablet 12/16/2024 12/16/2024 documented in this encounter Plan of Treatment Upcoming Encounters Date Type Department Care Team (Late st Contact Info) Description 12/27/2024 2:15 PM EDT Office Visit Orthopedic Surgery - [place] [address] [phone] Manolo Trammell DPM [address] [phone] 01/02/2025 8:00 AM EST Appointment Endoscopy [address] [place] [phone] Rylan Castillo DO [address] [address] 01/30/2025 9:45 AM EST Office Visit Pulmonology - [place] [address] [phone] Jose Guillen MD [address] [address] 03/17/2025 9:00 AM EST Office Visit Adult Medicine East - [address] [phone] Miguel Morrison PA [address] [place] [phone] 08/10/2025 1:00 PM EDT Office Visit Nephrology - [address] [phone] Karthik Marroquin MD [address] [phone] documented as of this encounter Goals Goal Patient Goal Type Associated Problems Recent Progress Patient-Stated? Author Adherence to Treatment Plan Na Ladd RN Note: To to weigh herself daily Pt to continue to follow a low salt diet documented as of this encounter Visit Diagnoses Not on filedocumented in this encounter Discontinued Medications Medication Sig Discontinue Reason Start Date End Da te amoxicillin-clavulanate (AUGMENTIN) 250-125 mg per tablet Take 1 tablet (250 mg total) by mouth every 12 (twelve) hours for 5 days. 12/16/2024 12/16/2024 documented as of this encounter Additional Health Concerns Active Problems Noted Date Diagnosed Date Autogenerated Problem 12/04/2024 Assessment Noted Time PHQ-9 Depression Total Score: 0 03/09/19 25 8:56 AM EST documented as of this encounter Care Teams Air Boatswain Relationship Specialty Start Date End Date Miguel Morrison PA [address] [place] [address] PCP - General Internal Medicine 02/16/20 documented as of this encounter
--- OUTSIDE RECORDS SUMMARY | 2024-12-21 22:02 | XMS_ITS | Encounter Summary ---
Author Organization [facility] Address [address] [place] [address] Care Team Providers Care Lean Consultant Name Role Phone Miguel Morrison Primary Care Provider [phone] Reason for Visit * Reason Onset Date Comments triage fall 11/30/2024 Encounter Details Date Type Department Care Team ([facility] st Contact Info) Description 11/30/2024 Telephone Adult Medicine [address] [phone] Miguel Morrison PA [address] [place] [phone] Social History Tobacco Use Types Packs/Day Years [...] your loved ones. For example, child care associate or elderly care for an older adult? [...] Upcoming Encounters Date Type Department Care Team ([facility] Contact Info) Description 12/27/2024 2:15 PM EDT Office Visit Orthopedic Surgery - [place] [address] [phone] Manolo Trammell, DPM [address] [phone] 01/02/2025 8:[address] [facility] Endoscopy [address] [place] [phone] Rylan Castillo DO [address] [address] 01/30/2025 9:45 AM EST Office Visit Pulmonology - [place] [address] [phone] Jose Guillen MD [address] [address] 03/17/2025 9:00 AM EST Office Visit Adult Medicine [address] [phone] Miguel Morrison PA [address] [place] [address] 08/10/2025 1:00 PM EDT Office Visit Nephrology [address] [phone] [place] [address] [place] [phone] documented as of this encounter Goals Goal [...] documented as of this encounter Care Teams Lean Consultant Relationship Specialty Start Date End Date Miguel Morrison PA [address] [place] [address] PCP - General Internal Medicine 02/16/20 documented as of this encounter
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
--- OUTSIDE RECORDS SUMMARY | 2024-12-21 22:02 | XMS_ITS | Encounter Summary ---
Author Organization [facility] Address [address] [place] [address] Care Team Providers Care Chain Builder Loom Control Name Role Phone Miguel Morrison Primary Care Provider [phone] Encounter Details Date Type Department Care Team (Late st Contact Info) Description 12/15/2024 Results Follow-Up [facility] - [facility] [address] 300 [facility] [address] [place] [address] Belkys Lucas NP 300 [facility] [place] [address] [place] [address] Social History Tobacco Use Types Packs/Day Years [...] Record ed Within the last 3 months, ojslyn mccartney many times did you visit the [...] for your loved ones. For example, children's book author or elderly care for an older adult? [...] as of this encounter Progress Notes * Nettie Montejo MA - 12/16/2024 4:31 PM EDT Robert, pts son aware of orders. BMP ordered and will be faxed to Moustapha BUCK. Med list updated * Shari Guerrero NP - 12/16/2024 3:05 PM EDT Thank you for confirming. Please have the patient decrease her potassium supplementation to 10 millequivalents daily and decrease furosemide to 40 mg daily alternating with 40 mg twice daily every other day. She should have a BMP rechecked in 1 week. * Lorrie Avalos RN - 12/16/2024 1:47 PM EDT Spoke with son Robert. See EPIC. Patient saw covering PCP yesterday. Per son. Patient has been and is taking taking Lasix 40 mg BID, KCL 20 MEQ 1 tab 4x/day he states as told by our office. No LLE . Wgt has decreased ~ 9 lbs over the past few months. No specific wgt reported. Denied any increased shortness of breath beyond her usual COPD baseline. Denied PND. Has not seen Nephrology lately. * Shari Guerrero NP - 12/16/2024 12:40 PM EDT Chart reviewed. Triage, could you please call to confirm what dose of both furosemide and potassium supplement thatthe patient has been taking; we may need to make some adjustments here or touch base with her medical records receptionist, Dr. Marroquin. Please also inquire as to any heart failure symptoms. Thank you ! documented in this encounter Plan of Treatment Upcoming Encounters Date Type Department Care Team (Late st Contact Info) Description 12/27/2024 2:15 PM EDT Office Visit Orthopedic Surgery - [place] [address] 175 [facility] [address] [place] [phone] Manolo Trammell DPM 175 [facility] 250 [place] [phone] 01/02/2025 8:00 AM EST Appointment [facility] Endoscopy [address] [place] [phone] Rylan Castillo DO 175 [facility] 200 [place] [address] 01/30/2025 9:45 AM EST Office Visit Pulmonology - [place] [address] [phone] Jose Guillen MD [address] [address] 03/17/2025 9:00 AM EST Office Visit Adult Medicine East - [address] [phone] Miguel Morrison PA 230 [place] [phone] 08/10/2025 1:00 PM EDT Office Visit Nephrology [address] [phone] Karthik Marroquin MD [address] [phone] Scheduled Orders Name Type Priority Associated Diagnoses Orde r Schedule Basic metabolic panel Lab Routine Chronic diastolic congestive heart failure (CMS/HCC V24, CMS/HCC V28) 1 Occurrences starting 12/16/2024 until 12/16/2025 documented as of this encounter Goals Goal Patient Goal Type Associated Problems Recent Progress Patient-Stated? Author Adherence to Treatment Plan General No Na Talbert, ABDOULAYE Note: To to weigh herself daily Pt to continue to follow a low salt diet documented as of this encounter Visit Diagnoses Diagnosis Chronic diastolic congestive heart failure (CMS/[facility] V24, CMS/HCC V28)- Primary documented in this encounter Additional Health Concerns Active Problems Noted Date Diagnosed Date Autogenerated Problem 12/04/2024 Assessment Noted Time PHQ-9 Depression Total Score: 0 03/09/19 25 8:56 AM EST documented as of this encounter Care Teams Chain Builder Loom Control Relationship Specialty Start Date End Date Miguel Morrison PA [address] [place] [address] PCP - General Internal Medicine 02/16/20 documented as of this encounter
--- OUTSIDE RECORDS SUMMARY | 2024-12-21 22:02 | XMS_ITS | Clinical Summary ---
Author Organization [facility] Address [address] [place] [phone] Phone Care Team Providers Care Handwriting Expert Name Role Phone Lowell Washington MD Primary [...] [place] MED[place] PART A [place] [id number] [facility] MEDEX SUPPLEMENT MEDICARE PART A & B [facility] MEDEX SUPPLEMENT MEDICARE PART A & B [employer] MED[employer] SUPPLEMENT MEDICARE PART A & B [employer] MED[employer] SUPPLEMENT MEDICARE PART A & B [employer] SUPPLEMENT MEDICARE PART A & B [employer] MED[employer] SUPPLEMENT MEDICARE PART A & B [employer] MED[employer] SUPPLEMENT MEDICARE PART A & B [employer] MED[employer] SUPPLEMENT MEDICARE PART A & B [employer] MEDEX SUPPLEMENT Care Teams Handwriting Expert Relationship Specialty Start Date End Date Lowell Washington MD [address] [place] [phone] PCP - General Internal Medicine 01/28/21 Additional Source Comments The information contained in this document represents components of the legal health record. It is not the complete legal health record.[facility]
--- NOTE | 2024-12-21 22:27 | PM.IMHP ---
History of Present Illness Date of Service: 12/21/24 Chief Complaint: melena 84-year-old female with a past medical history of HTN, HLD, HFpEF, mitral valve repair-bioprosthetic valve; history of PE, history of AFib on Eliquis, COPD on 3 L of home oxygen, anxiety, depression, GERD, suspected achalasia; presented to the hospital today with a chief complaint of black tarry stools. Patient reports that over the past 3 days she has been having dark-colored stools. Reports having mild shortness of breath. Denies any nausea or vomiting. Denies any abdominal pain. Denies any chest pain or palpitations. Review of all other systems is negative except mentioned above ER course: Per ER physician, patient blood pressure was stable; hemoglobin stable at spaced at; abdominal exam is benign; CT abdomen pelvis showed no active bleeding; creatinine slightly elevated; potassium to 5.3. Patient was given IV Protonix. Gastroenterology was notified[facility] Medical History Non-pressure chronic ulcer of skin of other sites with fat layer exposed COPD (chronic obstructive pulmonary disease) Pulmonary nodules Myocarditis Pneumonia Acute respiratory failure Gout Depression Obesity CHF (congestive heart failure) SABRINA on CPAP Diabetes mellitus Pulmonary embolism COVID-19 HTN (hypertension) Heart valve problem COPD (chronic obstructive pulmonary disease) Family History Sister Lung cancer Mother Renal cancer Other Diabetes mellitus Surgical History Previous back surgery History of aortic valve replacement with bioprosthetic valve Hx of laparoscopic gastric banding History of total right hip arthroplasty Social History Household Members: Spouse and Children Household Members Other:: lives with her and her son Housing: House Do you presently have visiting nurse or other home services: No Alcohol intake: never Patient Tobacco Use Status: Never used Tobacco Smoked in Last 30 Days: No Use of substances other than those prescribed or required for medical reasons: No Advance Directives: No Advance Directives Information Provided: Yes service: No Current occupational status: retired Meds Allergies Allergy/AdvReac Type Severity Reaction Status Date / Time fentanyl Allergy Difficulty Verified 12/21/24 15:59 Breathing Active Medications: Current Medications Acetaminophen (Acetaminophen 325 Mg Tablet) 650 mg PO Q6H PRN PRN Reason: Pain, Mild 1-3,fever,headache Calcium Carbonate (Calcium Carbonate 750 Mg Tab.Chew) 750 mg PO Q4H PRN PRN Reason: Heartburn Lactated Ringer's (Lr) 1,000 mls @ 50 mls/hr IVCONT .Q20H ERICH Magnesium Hydroxide (Milk Of Magnesia 30 Ml Oral.Susp) 30 ml PO DAILY PRN PRN Reason: Constipation Melatonin (Melatonin 3 Mg Tablet) 6 mg PO BEDTIME PRN PRN Reason: Insomnia Pantoprazole Sodium (Pantoprazole Sodium 40 Mg/10 Ml Vial) 40 mg IVPUSH DAILY@0630 [facility] Sodium Chloride (0.9 % Sodium Chloride Flush 3 Ml Syringe) 3 ml IVFLUSH QSHIFT [facility] Home Medications ?Medication ?Instructions ?Recorded ?Confirmed ?Last Taken ?Type allopurinol 100 mg tablet 100 mg PO DAILY 01/30/20 10/19/24 10/19/24 History bupropion HCl 150 mg 24 hr tablet, 150 mg PO DAILY@1700 01/30/20 10/19/24 10/18/24 History extended release bupropion HCl 300 mg 24 hr tablet, 300 mg PO DAILY 01/30/20 10/19/24 10/18/24 History extended release duloxetine 60 mg capsule,delayed 60 mg PO DAILY 01/30/20 10/19/24 10/18/24 History release omeprazole 20 mg capsule,delayed 20 mg PO DAILY@0630 01/30/20 10/19/24 10/18/24 History release potassium chloride 10 mEq 10 meq PO BID 01/30/20 10/19/24 10/18/24 History capsule,extended release rosuvastatin 20 mg tablet 20 mg PO BEDTIME 01/30/20 10/19/24 10/18/24 History apixaban 5 mg tablet 5 mg PO BID 08/17/20 10/19/24 10/19/24 History diltiazem HCl 180 mg 180 mg PO DAILY 08/17/20 10/19/24 10/19/24 History capsule,extended release 24 hr, controlled (DILT-XR) albuterol sulfate 90 mcg/actuation 2 puff inhalation Q6H PRN 06/13/21 10/19/24 Unknown History aerosol inhaler Shortness Of Breath cholecalciferol (vitamin D3) 50 50 mcg PO BEDTIME 06/13/21 10/19/24 10/18/24 History mcg (2,000 unit) tablet docusate sodium 50 mg capsule 50 mg PO DAILY PRN Constipation 06/13/21 10/19/24 Unknown History ferrous sulfate 325 mg (65 mg 325 mg PO Q48H 06/13/21 10/19/24 10/17/24 History iron) tablet furosemide 40 mg tablet 40 mg PO DAILY 06/13/21 10/19/24 10/18/24 History budesonide 160 mcg-glycopyr 9 2 inh inhalation BID 10/19/24 10/19/24 10/19/24 History mcg-formot 4.8 mcg/actuation HFA inhaler (Breztri Aerosphere) buspirone 7.5 mg tablet 7.5 mg PO BID 10/19/24 10/19/24 10/19/24 History colchicine 0.6 mg tablet 0.6 mg PO DAILY PRN Gout 10/19/24 10/19/24 Unknown History lisinopril 40 mg tablet 40 mg PO DAILY 10/19/24 10/19/24 10/19/24 History hfhfwdso-xvkn-wkrv 8 mg-folic 400 1 tab PO DAILY 10/19/24 10/19/24 10/18/24 History mcg-K 50 mcg-lutein 300 mcg tablet (Multivitamin Women 50 Plus) Physical Exam Vital Signs and Narrative: Vital Signs: Last Vital Signs Temp 98.2 F 12/21/24 18:10 Pulse 51 12/21/24 18:10 Resp 15 12/21/24 18:10 BP 135/36 L 12/21/24 18:10 Pulse Ox 97 12/21/24 18:10 O2 Del Method Room Air 12/21/24 18:10 BMI result Body Mass Index 31.4 Gen: Appears be in no acute distress HEENT: NCAT, Moist mucosa. Pulmonary: Vesicular breath sounds, fair air entry CVS: Normal S1-S2 Abdomen: BS+, Soft, Nontender Extremities: Warm well perfused Neuro: Alert and awake. Results Labs 12/21/24 20:59 12/21/24 20:59 Labs: Laboratory Results - last 24 hr 12/21/24 12/21/24 12/21/24 16:08 17:49 18:14 MCV 94.8 MCH 30.0 MCHC 31.7 RDW 15.5 Plt Count 212 MPV 11.0 Immature Gran % (Auto) 0.4 Neut % (Auto) 75.6 H Lymph % (Auto) 15.2 L [place] % (Auto) 7.7 Eos % (Auto) 0.9 Baso % (Auto) 0.2 Lymph # (Auto) 2.8 [place] # (Auto) 1.4 H Eos # (Auto) 0.2 Baso # (Auto) 0.0 Abs Immat Gran (auto) 0.07 H Absolute Neuts (auto) 13.7 H Absolute Nucleated RBC 0.000 Nucleated RBC % (auto) 0.0 Anion Gap 10 L Estim Creat Clear Calc 23.1 Estimated GFR 29 Random Glucose 182 H Lactic Acid 1.7 Calcium 10.8 H Magnesium 2.3 Total Bilirubin 0.6 AST 32 H ALT 29 Alkaline Phosphatase 101 Total Protein 6.9 Albumin 4.3 Lipase 20 Urine Color Urine Appearance Urine pH Ur Specific [place] Urine Protein Urine Glucose (UA) Urine Ketones Urine Blood Urine Nitrite Ur Leukocyte Esterase Urine RBC Urine WBC Ur Squamous Epith Cells Urine Bacteria Hyaline Casts Stool Occult Blood POSITIVE Blood Type O Negative Antibody Screen NEGATIVE 12/21/24 12/21/24 18:26 20:59 MCV 94.7 MCH 30.1 MCHC 31.8 RDW 15.5 Plt Count 191 MPV 10.9 Immature Gran % (Auto) 0.3 Neut % (Auto) 74.2 H Lymph % (Auto) 16.0 L [place] % (Auto) 8.0 Eos % (Auto) 1.2 Baso % (Auto) 0.3 Lymph # (Auto) 2.5 [place] # (Auto) 1.3 H Eos # (Auto) 0.2 Baso # (Auto) 0.0 Abs Immat Gran (auto) 0.05 H Absolute Neuts (auto) 11.8 H Absolute Nucleated RBC 0.000 Nucleated RBC % (auto) 0.0 Anion Gap 15 Estim Creat Clear Calc 25.4 Estimated GFR 33 Random Glucose 125 H Lactic Acid Calcium 9.8 D Magnesium Total Bilirubin AST ALT Alkaline Phosphatase Total Protein Albumin Lipase Urine Color Yellow Urine Appearance Clear Urine pH 5.5 Ur Specific Lincoln 1.010 Urine Protein Negative Urine Glucose (UA) Negative Urine Ketones Negative Urine Blood Negative Urine Nitrite Negative Ur Leukocyte Esterase Negative Urine RBC 0-2 Urine WBC 0-5 Ur Squamous Epith Cells 0-2 Urine Bacteria None Seen Hyaline Casts 3-5 Stool Occult Blood Blood Type Antibody Screen Assessment and Plan (1) GI bleed: Qualifiers: GI bleed type/associated pathology: melena Qualified Code(s): K92.1 - Melena Status: Acute Plan 84-year-old female with a past medical history of HTN, HLD, HFpEF, mitral valve repair-bioprosthetic valve; history of PE, history of AFib on Eliquis, COPD on 3 L of home oxygen, anxiety, depression, GERD, suspected achalasia; presented to the hospital today with a chief complaint of black tarry stools. GI bleed: H and H currently stable Serial H&H Clear liquid diet GI consult note. IV ppi Mild PREMA: Mild hyperkalemia: Will keep the patient on gentle IV fluids total of 500 cc at 50 cc/hour. HX PE/AFib: Hold home Eliquis until cleared by Gastroenterology. HX HFpEF: Stable. Held Lasix for the 1st 24 hours to ensure improvement in renal function. History COPD: Patient on 3 L of home oxygen. DuoNebs p.r.n.. Anxiety/depression: Continue home medications once med rec is finished. DVT prophylaxis: SCD boots Code status: Full code Quality Stroke Does the patient have a stroke diagnosis?: No VTE Prior VTE?: No VTE Risk Level:: Medical - moderate - high VTE Device Contraindication: N/A - Device Ordered VTE Drug Contraindication: Treatment Not Indicated
[2024-12-21 22:31] VITALS: BP 143/41; PULSE 55; RESP 19; TEMP 36.2; O2SAT 93
[2024-12-21] MEDS: Lactated Ringers 1,000 ML 50 ML IVCONT (22:49)
--- NOTE | 2024-12-21 22:52 | PC.NURSE ---
pt reports she uses CPAP at night at home, declined to use one now. states she would rather just use O2 for nighttime. pt placed on 3L nc. pt states she uses this at home when needed
[2024-12-22] VITALS (10 sets, daily range): BP systolic 123–166; BP diastolic 47–67; PULSE 62–77; RESP 16–22; TEMP 36.1–36.7; O2SAT 94–100; BMI 32.9
--- NOTE | 2024-12-22 04:49 | HO.NURTONUR ---
Addendum entered by Jenny Holt RN 12/22/24 08:50: Pt has pertient hx HTN, MVR, PE, Afib on eliquis, COPD on 3L oxygen continuously, anxiety, depression and GERD. GI saw pt this am, plan for upper endoscopy tomorrow. Per MD Beckwith pt no longer requires telemetry and can be medsurge level of care. Original Note: pt presents to ED for dark stool x3 days, dizzy/lightheaded, ADMIT:GI bleed. occult positive, H/H stable. CT abd/pelv negative. GI consult. clear liquid diet. A/O x3, confused at times. calm and cooperative with care, 1 assist to the bathroom via w/c. uses walker and w/c at home. indep. with ADLs. O2 at home PRN, CPAP at night, refused CPAP in ED, just wanted O2 during the night, 3L nc, o2 98% 20g IV R forearm, LR infusing 50 mls/hr. sinus gustavo on tele overnight.
--- NOTE | 2024-12-22 05:51 | PC.NURSE ---
pt rings appropriately to use the bathroom. up many times during the night, 1 assist to bathroom via w/c
--- NOTE | 2024-12-22 09:53 | MHC.CM.PN ---
CM met with Patient at bedside, in the ED and addressed IMM with her, providing Patient with the original and a copy will be placed on the chart. Patient lives in a house with her and Son/HCP/Robert, who will transport at dc. Patient's home O2 is from [facility] [place] and home/resume said services is Patient's goal. CM has initiated and will follow for dc planning. PCP/PA is Miguel Morrison.
--- NOTE | 2024-12-22 09:59 | PHA.MEDREC ---
Addendum entered by Narayan Taveras PharmD 12/22/24 10:12: reviewed Original Note: Pharmacy Consult ? Medication Reconciliation Pharmacy has completed the medication reconciliation. Patient is a poor historian, she instructed me to call her son Robert to confirm med list. Spoke to Robert over the phone to confirm med list. Son was able to confirm all of patient medications. patient is no longer taking Augmentin 875 mg, Vitamin D3 50 mcg, and Docusate 50 mg. son reports patient takes Furosemide 40 mg every other day alternating with Furosemide 20 mg every other day, Potassium chlor 10 meq daily NOT BID. Patient had all her morning medications yesterday.
--- NOTE | 2024-12-22 10:08 | CONS_ITS ---
DATE OF SERVICE: 12/22/2024 REFERRING PHYSICIAN: Dr. Fowler REASON FOR CONSULTATION: Upper GI bleeding. HISTORY OF PRESENT ILLNESS: The patient is a pleasant 84-year-old woman, who was admitted to the hospital after presenting to the emergency room with 3-day history of black and coffee-ground stools. She does take Eliquis and last took this the night before admission. She denies any prior history of upper GI bleeding before. She does not take chronic anti-inflammatories or proton pump inhibitors. Hematocrit on admission was 41.7, this was rechecked last night and was 39.3. She has had no melena since admission. Stool occult blood testing was positive. PAST MEDICAL HISTORY: 1. Hypertension. 2. Hyperlipidemia. 3. Heart failure with preserved ejection fraction. 4. Mitral valve repair. 5. Pulmonary embolism. 6. Atrial fibrillation. 7. COPD, on home oxygen. 8. Anxiety/depression. 9. Gastroesophageal reflux disease. 10. Question achalasia. CURRENT MEDICATIONS: Her current medication list is reviewed in the chart. ALLERGIES: FENTANYL. FAMILY HISTORY: This is reviewed with the patient and is noncontributory. SOCIAL HISTORY: There is no current tobacco, alcohol, or substance abuse. REVIEW OF SYSTEMS: SKIN: No pruritus. HEENT: Negative. CARDIOPULMONARY: No shortness of breath or chest pain. GASTROINTESTINAL: As above. GENITOURINARY: Negative. NEUROPSYCHIATRIC: Negative. PHYSICAL EXAMINATION: GENERAL: Shows a pleasant female, lying comfortably in bed. VITAL SIGNS: Reviewed in electronic medical record and are stable. SKIN: Anicteric. HEENT: Shows no scleral icterus. NECK: Without lymphadenopathy or thyromegaly. LUNGS: Clear. HEART: Shows regular rate and rhythm. S1, S2. No murmur. ABDOMEN: Soft without focal mass or tenderness. Bowel sounds are present. No organomegaly is noted. EXTREMITIES: Without edema. LABORATORY DATA AND IMAGING STUDIES: Reviewed. No bleeding was identified on CT scanning. IMPRESSION: Black stools. PLAN: Her symptoms appear consistent with upper GI blood loss. Discussed risks and benefits of endoscopy with her. She understands this and agrees to proceed. This will be scheduled tomorrow because of her recent Eliquis use. MD SOHA Valdivia/SONYA / [phone]
--- NOTE | 2024-12-22 11:11 | PC.NURSE ---
Pt's son is HCP and would any plan of care updates to be communicated to him: Robert [phone].
--- NOTE | 2024-12-22 12:11 | MHC.EDTECH ---
pt assisted to and from bathroom with use of wheelchair and a steady gait when ambulated a few steps to toilet and bed
--- NOTE | 2024-12-22 12:41 | HO.PM.IMPN ---
Subjective Subjective Date of Service: 12/22/24 Interval History: f/u on gib no anemia H/H is stable EGD planned for tomorrow, holding eliquis Physical Exam Vital Signs: Vital Signs: Last Vital Signs Temp 97.8 F 12/22/24 12:10 Pulse 74 12/22/24 12:10 Resp 22 H 12/22/24 12:10 BP 148/48 H 12/22/24 12:10 Pulse Ox 94 12/22/24 12:10 O2 Del Method Room Air 12/22/24 12:10 O2 Flow Rate 3 12/22/24 09:01 BMI result Body Mass Index 31.4 Const: Other: General: AO X 3, no acute distress Resp: CTA bilateral CVS: S1,S2,RRR GI: +BS, NT, no distention Skin: No rash Neuro: motor grossly intact Psych: appropriate affect Objective Data Active Medications Acetaminophen (Acetaminophen 325 Mg Tablet) 650 mg PO Q6H PRN PRN Reason: Pain, Mild 1-3,fever,headache Calcium Carbonate (Calcium Carbonate 750 Mg Tab.Chew) 750 mg PO Q4H PRN PRN Reason: Heartburn Lactated Ringer's (Lr) 1,000 mls @ 50 mls/hr IVCONT .Q20H [facility] Last Admin: 12/21/24 22:49 Dose: 50 mls/hr Documented By: JADIEL Magnesium Hydroxide (Milk Of Magnesia 30 Ml Oral.Susp) 30 ml PO DAILY PRN PRN Reason: Constipation Melatonin (Melatonin 3 Mg Tablet) 6 mg PO BEDTIME PRN PRN Reason: Insomnia Pantoprazole Sodium (Pantoprazole Sodium 40 Mg/10 Ml Vial) 40 mg IVPUSH DAILY@0630 [facility] Last Admin: 12/22/24 06:45 Dose: 40 mg Documented By: JADIEL Sodium Chloride (0.9 % Sodium Chloride Flush 3 Ml Syringe) 3 ml IVFLUSH QSHIFT [facility] Last Admin: 12/22/24 07:15 Dose: Not Given Documented By: CORNEL Non-Admin Reason: IV Running Labs 12/21/24 20:59 12/21/24 20:59 Labs: Laboratory Results - last 24 hr 12/21/24 12/21/24 12/21/24 16:08 17:49 18:14 MCV 94.8 MCH 30.0 MCHC 31.7 RDW 15.5 Plt Count 212 MPV 11.0 Immature Gran % (Auto) 0.4 Neut % (Auto) 75.6 H Lymph % (Auto) 15.2 L [place] % (Auto) 7.7 Eos % (Auto) 0.9 Baso % (Auto) 0.2 Lymph # (Auto) 2.8 [place] # (Auto) 1.4 H Eos # (Auto) 0.2 Baso # (Auto) 0.0 Abs Immat Gran (auto) 0.07 H Absolute Neuts (auto) 13.7 H Absolute Nucleated RBC 0.000 Nucleated RBC % (auto) 0.0 Anion Gap 10 L Estim Creat Clear Calc 23.1 Estimated GFR 29 Random Glucose 182 H Lactic Acid 1.7 Calcium 10.8 H Magnesium 2.3 Total Bilirubin 0.6 AST 32 H ALT 29 Alkaline Phosphatase 101 Total Protein 6.9 Albumin 4.3 Lipase 20 Urine Color Urine Appearance Urine pH Ur Specific [place] Urine Protein Urine Glucose (UA) Urine Ketones Urine Blood Urine Nitrite Ur Leukocyte Esterase Urine RBC Urine WBC Ur Squamous Epith Cells Urine Bacteria Hyaline Casts Stool Occult Blood POSITIVE Blood Type O Negative Antibody Screen NEGATIVE 12/21/24 12/21/24 18:26 20:59 MCV 94.7 MCH 30.1 MCHC 31.8 RDW 15.5 Plt Count 191 MPV 10.9 Immature Gran % (Auto) 0.3 Neut % (Auto) 74.2 H Lymph % (Auto) 16.0 L [place] % (Auto) 8.0 Eos % (Auto) 1.2 Baso % (Auto) 0.3 Lymph # (Auto) 2.5 [place] # (Auto) 1.3 H Eos # (Auto) 0.2 Baso # (Auto) 0.0 Abs Immat Gran (auto) 0.05 H Absolute Neuts (auto) 11.8 H Absolute Nucleated RBC 0.000 Nucleated RBC % (auto) 0.0 Anion Gap 15 Estim Creat Clear Calc 25.4 Estimated GFR 33 Random Glucose 125 H Lactic Acid Calcium 9.8 D Magnesium Total Bilirubin AST ALT Alkaline Phosphatase Total Protein Albumin Lipase Urine Color Yellow Urine Appearance Clear Urine pH 5.5 Ur Specific [place] 1.010 Urine Protein Negative Urine Glucose (UA) Negative Urine Ketones Negative Urine Blood Negative Urine Nitrite Negative Ur Leukocyte Esterase Negative Urine RBC 0-2 Urine WBC 0-5 Ur Squamous Epith Cells 0-2 Urine Bacteria None Seen Hyaline Casts 3-5 Stool Occult Blood Blood Type Antibody Screen Assessment and Plan (1) Acute upper GI bleed: Status: Acute Plan 84-year-old female with a past medical history of HTN, HLD, HFpEF, mitral valve repair-bioprosthetic valve; history of PE, history of AFib on Eliquis, COPD on 3 L of home oxygen, anxiety, depression, GERD, suspected achalasia; presented to the hospital today with a chief complaint of black tarry stools. Melana, concern for GIB, H/H stable. IV PPI EGD tomorrow hold eliquis GI consult note. IV ppi Mild PREMA: improving, continue IVF Mild hyperkalemia: resolved, hold lisinopril HX PE/AFib: Hold home Eliquis until cleared by Gastroenterology. HX HFpEF: Stable. hold Lasix History COPD: Patient on 3 L of home oxygen. DuoNebs p.r.n.. Anxiety/depression: Continue home medications once med rec is finished. DVT prophylaxis: SCD boots Code status: Full code Quality Stroke Does the patient have a stroke diagnosis?: No VTE Prior VTE?: No VTE Risk Level:: Medical - moderate - high VTE Device Contraindication: N/A - Device Ordered VTE Drug Contraindication: Treatment Not Indicated
--- NOTE | 2024-12-22 13:10 | PC.NURSE ---
Pharmacy contacted for medication verification.
[2024-12-22] MEDS: dilTIAZem HCL CD 180 MG CAP.ER.24H PO (13:42)
[2024-12-22] MEDS: buPROPion HCl XL 300 MG TAB.ER.24H PO (13:42)
--- NOTE | 2024-12-22 13:50 | HO.ANESPROP2 ---
Documented by User: Tamela Holder NP 12/22/24 14:29 HPI - Anesthesia Eval Consult details Narrative: 84 yr old female for upper endoscopy with Gold probe Saw pt in ED, she denies CP, no SOB at rest, not on supplemental O2, very minimal LE edema. No trouble with prior anesthesia. Admitted to [facility] 10/19-10/25/24 for acute on chronic CHF-heart failure with preserved fraction; CT chest showed mild interstitial edema, pleural effusions, elevated BNP, patient was significantly short of breath especially with exertion; Patient was started on IV Lasix, renal function electrolytes monitored closely, echo was done *see below Patient seen by cardiology: Recommended to continue home Lasix, patient is to follow-up with her own [employer] for question of mitral valve dysfunction. 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 Mild aortic stenosis: mean gradient 9, AV valve area 1.73 Atrial fibrillation/flutter: s/p MARIA ANTONIA cardioversion 05/2020 with return of flutter post procedure. CHF: 09/2024 hospitalization as per above, lasix dose was adjusted at her 11/17 cards visit, advised on strict low sodium diet, daily weights. Pulmonary HTN: moderate to severe on recent echo below. PVC feels likely due to combination of diastolic dysfunction & underlying COPD. COPD: on supplemental O2 for ambulation SABRINA on CPAP PMFSH Active Problems Active Problems: All Active Problems Acute upper GI bleed (Acute) GI bleed (Acute) Prosthetic mitral valve stenosis (Acute) S/P mitral valve replacement with bioprosthetic valve (Acute) Community acquired pneumonia (Acute) Acute exacerbation of CHF (congestive heart failure) (Acute) Acute upper respiratory infection (Acute) Delirium (Acute) Past Medical History Medical History Non-pressure chronic ulcer of skin of other sites with fat layer exposed COPD (chronic obstructive pulmonary disease) Pulmonary nodules Myocarditis Pneumonia Acute respiratory failure Gout Depression Obesity CHF (congestive heart failure) SABRINA on CPAP Diabetes mellitus Pulmonary embolism COVID-19 HTN (hypertension) Heart valve problem COPD (chronic obstructive pulmonary disease) Family History Family History Sister Lung cancer Mother Renal cancer Other Diabetes mellitus Family history of problems with anesthesia: No Surgical History Surgical History Previous back surgery History of aortic valve replacement with bioprosthetic valve Hx of laparoscopic gastric banding History of total right hip arthroplasty History of Problems with Anesthesia: No Social History Social History Household Members: Spouse Household Members Other:: lives with her and her son Housing: House Are you a primary family day carer to a significant other at home: Yes Do you presently have visiting nurse or other home services: No Alcohol intake: never Patient Tobacco Use Status: Former Tobacco user Tobacco use type: Cigarette service: No Current occupational status: retired [employer] Allergies Allergy/AdvReac Type Severity Reaction Status Date / Time fentanyl Allergy Difficulty Verified 12/21/24 15:59 Breathing Active Medications: Current Medications Acetaminophen (Acetaminophen 325 Mg Tablet) 650 mg PO Q6H PRN PRN Reason: Pain, Mild 1-3,fever,headache Albuterol Sulfate (Albuterol Sulfate 90 Mcg 8 Gm Inhaler) 2 puff INHALE Q6H PRN PRN Reason: Shortness of Breath Allopurinol (Allopurinol 100 Mg Tablet) 100 mg PO DAILY [facility] Atorvastatin Calcium (Atorvastatin Calcium 80 Mg Tablet) 80 mg PO BEDTIME [facility] Bupropion HCl (Bupropion Hcl Xl 150 Mg Tab.Er.24h) 150 mg PO DAILY@1700 [facility] Bupropion HCl (Bupropion Hcl Xl 300 Mg Tab.Er.24h) 300 mg PO DAILY [facility] Last Admin: 12/22/24 13:42 Dose: 300 mg Buspirone HCl (Buspirone Hcl 5 Mg Tablet) 7.5 mg PO BID [facility] Calcium Carbonate (Calcium Carbonate 750 Mg Tab.Chew) 750 mg PO Q4H PRN PRN Reason: Heartburn Diltiazem HCl (Diltiazem Hcl Cd 180 Mg Cap.Er.24h) 180 mg PO DAILY [facility]; Protocol Last Admin: 12/22/24 13:42 Dose: 180 mg Duloxetine HCl (Duloxetine Hcl 60 Mg Capsule.Dr) 60 mg PO DAILY [facility] Ferrous Sulfate (Ferrous Sulfate 324 Mg Tablet.Dr) 324 mg PO Q48H [facility] Furosemide (Furosemide 20 Mg Tablet) 20 mg PO Q48H [facility]; Protocol Furosemide (Furosemide 40 Mg Tablet) 40 mg PO Q48H [facility]; Protocol Lactated Ringer's (Lr) 1,000 mls @ 50 mls/hr IVCONT .Q20H [facility] Last Admin: 12/21/24 22:49 Dose: 50 mls/hr Lisinopril (Lisinopril 40 Mg Tablet) 40 mg PO DAILY [facility]; Protocol Magnesium Hydroxide (Milk Of Magnesia 30 Ml Oral.Susp) 30 ml PO DAILY PRN PRN Reason: Constipation Magnesium Oxide (Magnesium Oxide 400 Mg Tablet) 400 mg PO DAILY [facility] Melatonin (Melatonin 3 Mg Tablet) 6 mg PO BEDTIME PRN PRN Reason: Insomnia Multivitamins/Vitamin C (Multivitamin Tablet) 1 tab PO DAILY [facility] Non-Formulary Medication (Uumcdujcja-Ylvtzvkj-Qylfypaeeo [Breztri Aerosphere]) 2 inhalation INHALE BID [facility] Omeprazole (Omeprazole 20 Mg Capsule.) 20 mg PO DAILY@0630 [facility] Potassium Chloride (Potassium Chloride Er 10 Meq Tablet.Er) 10 meq PO DAILY [facility] Sodium Chloride (0.9 % Sodium Chloride Flush 3 Ml Syringe) 3 ml IVFLUSH QSHIFT [facility] Last Admin: 12/22/24 07:15 Dose: Not Given Home Medications ?Medication ?Instructions ?Recorded ?Confirmed ?Last Taken ?Type allopurinol 100 mg tablet 100 mg PO DAILY 01/30/20 12/22/24 12/21/24 History bupropion HCl 150 mg 24 hr tablet, 150 mg PO DAILY@1700 01/30/20 12/22/24 12/20/24 History extended release bupropion HCl 300 mg 24 hr tablet, 300 mg PO DAILY 01/30/20 12/22/24 12/21/24 History extended release duloxetine 60 mg capsule,delayed 60 mg PO DAILY 01/30/20 12/22/24 12/21/24 History release omeprazole 20 mg capsule,delayed 20 mg PO DAILY@0630 01/30/20 12/22/24 12/21/24 History release potassium chloride 10 mEq 10 meq PO DAILY 01/30/20 12/22/24 12/21/24 History capsule,extended release rosuvastatin 20 mg tablet 20 mg PO BEDTIME 01/30/20 12/22/24 12/20/24 History apixaban 5 mg tablet 5 mg PO BID 08/17/20 12/22/24 12/21/24 History diltiazem HCl 180 mg 180 mg PO DAILY 08/17/20 12/22/24 12/21/24 History capsule,extended release 24 hr, controlled (DILT-XR) albuterol sulfate 90 mcg/actuation 2 puff inhalation Q6H PRN 06/13/21 12/22/24 Unknown History aerosol inhaler Shortness Of Breath ferrous sulfate 325 mg (65 mg 325 mg PO Q48H 06/13/21 12/22/24 12/20/24 History iron) tablet furosemide 40 mg tablet 40 mg PO Q48H 06/13/21 12/22/24 12/21/24 History budesonide 160 mcg-glycopyr 9 2 inh inhalation BID 10/19/24 12/22/24 12/21/24 History mcg-formot 4.8 mcg/actuation HFA inhaler (Breztri Aerosphere) buspirone 7.5 mg tablet 7.5 mg PO BID 10/19/24 12/22/24 12/21/24 History lisinopril 40 mg tablet 40 mg PO DAILY 10/19/24 12/22/24 12/21/24 History ydzzsqkk-[id number]-aivl 8 mg-folic 400 1 tab PO DAILY 10/19/24 12/22/24 12/21/24 History mcg-K 50 mcg-lutein 300 mcg tablet (Multivitamin Women 50 Plus) furosemide 20 mg tablet 20 mg PO Q48H 12/22/24 12/22/24 12/20/24 History magnesium oxide 400 mg (241.3 mg 400 mg PO DAILY 12/22/24 12/22/24 12/21/24 History magnesium) tablet Exam Height,Weight and Vital Signs: Height 5 ft Weight 73.028 kg Last Vital Signs Temp 97.8 F 12/22/24 12:10 Pulse 69 12/22/24 13:42 Resp 22 H 12/22/24 12:10 BP 166/63 H 12/22/24 13:42 Pulse Ox 94 12/22/24 12:10 O2 Del Method Room Air 12/22/24 12:10 O2 Flow Rate 3 12/22/24 09:01 Pertinent Lab Results Pertinent Lab Results: Laboratory Tests 12/21/24 12/21/2412/21/25 16:08 17:49 18:14 WBC 18.2 H RBC 4.40 Hgb 13.2 Hct 41.7 MCV 94.8 MCH 30.0 MCHC 31.7 RDW 15.5 Plt Count 212 MPV 11.0 Immature Gran % (Auto) 0.4 Neut % (Auto) 75.6 H Lymph % (Auto) 15.2 L [place] % (Auto) 7.7 Eos % (Auto) 0.9 Baso % (Auto) 0.2 Lymph # (Auto) 2.8 [place] # (Auto) 1.4 H Eos # (Auto) 0.2 Baso # (Auto) 0.0 Abs Immat Gran (auto) 0.07 H Absolute Neuts (auto) 13.7 H Absolute Nucleated RBC 0.000 Nucleated RBC % (auto) 0.0 Sodium 139 Potassium 5.3 H D Chloride 104 Carbon Dioxide 30 H Anion Gap 10 L BUN 39 H Creatinine 1.67 H Estim Creat Clear Calc 23.1 Estimated GFR 29 Random Glucose 182 H Lactic Acid 1.7 Calcium 10.8 H Magnesium 2.3 Total Bilirubin 0.6 AST 32 H ALT 29 Alkaline Phosphatase 101 Total Protein 6.9 Albumin 4.3 Lipase 20 Urine Color Urine Appearance Urine pH Ur Specific [place] Urine Protein Urine Glucose (UA) Urine Ketones Urine Blood Urine Nitrite Ur Leukocyte Esterase Urine RBC Urine WBC Ur Squamous Epith Cells Urine Bacteria Hyaline Casts Stool Occult Blood POSITIVE Blood Type O Negative Antibody Screen NEGATIVE 12/21/24 12/21/24 18:26 20:59 WBC 15.8 H RBC 4.15 L Hgb 12.5 Hct 39.3 MCV 94.7 MCH 30.1 MCHC 31.8 RDW 15.5 Plt Count 191 MPV 10.9 Immature Gran % (Auto) 0.3 Neut % (Auto) 74.2 H Lymph % (Auto) 16.0 L [place] % (Auto) 8.0 Eos % (Auto) 1.2 Baso % (Auto) 0.3 Lymph # (Auto) 2.5 [place] # (Auto) 1.3 H Eos # (Auto) 0.2 Baso # (Auto) 0.0 Abs Immat Gran (auto) 0.05 H Absolute Neuts (auto) 11.8 H Absolute Nucleated RBC 0.000 Nucleated RBC % (auto) 0.0 Sodium 142 Potassium 5.3 H Chloride 107 Carbon Dioxide 25 Anion Gap 15 BUN 35 H Creatinine 1.52 H Estim Creat Clear Calc 25.4 Estimated GFR 33 Random Glucose 125 H Lactic Acid Calcium 9.8 D Magnesium Total Bilirubin AST ALT Alkaline Phosphatase Total Protein Albumin Lipase Urine Color Yellow Urine Appearance Clear Urine pH 5.5 Ur Specific [place] 1.010 Urine Protein Negative Urine Glucose (UA) Negative Urine Ketones Negative Urine Blood Negative Urine Nitrite Negative Ur Leukocyte Esterase Negative Urine RBC 0-2 Urine WBC 0-5 Ur Squamous Epith Cells 0-2 Urine Bacteria None Seen Hyaline Casts 3-5 Stool Occult Blood Blood Type Antibody Screen Narrative Narrative: ECHO 09/2024 Conclusions: - 1. Normal LV ejection fraction 65-70% 2. Biatrial enlargement, right greater than left 3. Mild aortic stenosis 4. Significantly increased gradient across bioprosthetic mitral valve suggestive of significant stenosis 5. Moderate to severe elevation of right ventricular systolic pressure 6. No pericardial effusion EKG 09/2024 Vent. Rate : 62 BPM Atrial Rate : 234 BPM P-R Int : * ms QRS Dur : 116 ms QT Int : 346 ms P-R-T Axes : * -64 34 degrees QTcB Int : 351 ms Poor data quality Possible Atrial flutter with 4:1 A-V conduction Left axis deviation Minimal voltage criteria for LVH, may be normal variant ( [place] product ) Nonspecific ST and T wave abnormality Abnormal ECG When compared with ECG of 19-Jun-2021 14:04, Poor data quality in current ECG precludes serial comparison Airway Mallampati Class: III TM Dist: >3cm Neck ROM: Limited Loose/Missing/Broken Teeth: Yes and Lower (M) Heart: RRR Lungs: diminished b/l Assessment and Plan Final Anesthetic Review Family History of Problems with Anesthesia: No History of Problems with Anesthesia: No Documented by User: Haylee Wade MD 12/23/24 09:03 [facility] Past Medical History Medical History Non-pressure chronic ulcer of skin of other sites with fat layer exposed COPD (chronic obstructive pulmonary disease) Pulmonary nodules Myocarditis Pneumonia Acute respiratory failure Gout Depression Obesity CHF (congestive heart failure) SABRINA on CPAP Diabetes mellitus Pulmonary embolism COVID-19 HTN (hypertension) Heart valve problem COPD (chronic obstructive pulmonary disease) Family History Family History Sister Lung cancer Mother Renal cancer Other Diabetes mellitus Surgical History Surgical History Previous back surgery History of aortic valve replacement with bioprosthetic valve Hx of laparoscopic gastric banding History of total right hip arthroplasty Social History Social History Household Members: Spouse Household Members Other:: lives with her and her son Housing: House Are you a primary family day carer to a significant other at home: Yes Do you presently have visiting nurse or other home services: No Alcohol intake: never Patient Tobacco Use Status: Former Tobacco user Tobacco use type: Cigarette service: No Current occupational status: retired [employer] Allergies Allergy/AdvReac Type Severity Reaction Status Date / Time fentanyl Allergy Difficulty Verified 12/21/24 15:59 Breathing Home Medications ?Medication ?Instructions ?Recorded ?Confirmed ?Last Taken ?Type allopurinol 100 mg tablet 100 mg PO DAILY 01/30/20 12/22/24 12/21/24 History bupropion HCl 150 mg 24 hr tablet, 150 mg PO DAILY@1700 01/30/20 12/22/24 12/20/24 History extended release bupropion HCl 300 mg 24 hr tablet, 300 mg PO DAILY 01/30/20 12/22/24 12/21/24 History extended release duloxetine 60 mg capsule,delayed 60 mg PO DAILY 01/30/20 12/22/24 12/21/24 History release omeprazole 20 mg capsule,delayed 20 mg PO DAILY@0630 01/30/20 12/22/24 12/21/24 History release potassium chloride 10 mEq 10 meq PO DAILY 01/30/20 12/22/24 12/21/24 History capsule,extended release rosuvastatin 20 mg tablet 20 mg PO BEDTIME 01/30/20 12/22/24 12/20/24 History apixaban 5 mg tablet 5 mg PO BID 08/17/20 12/22/24 12/21/24 History diltiazem HCl 180 mg 180 mg PO DAILY 08/17/20 12/22/24 12/21/24 History capsule,extended release 24 hr, controlled (DILT-XR) albuterol sulfate 90 mcg/actuation 2 puff inhalation Q6H PRN 06/13/21 12/22/24 Unknown History aerosol inhaler Shortness Of Breath ferrous sulfate 325 mg (65 mg 325 mg PO Q48H 06/13/21 12/22/24 12/20/24 History iron) tablet furosemide 40 mg tablet 40 mg PO Q48H 06/13/21 12/22/24 12/21/24 History budesonide 160 mcg-glycopyr 9 2 inh inhalation BID 10/19/24 12/22/24 12/21/24 History mcg-formot 4.8 mcg/actuation HFA inhaler (Breztri Aerosphere) buspirone 7.5 mg tablet 7.5 mg PO BID 10/19/24 12/22/24 12/21/24 History lisinopril 40 mg tablet 40 mg PO DAILY 10/19/24 12/22/24 12/21/24 History fxbnlbmm-wgbi-qjtc 8 mg-folic 400 1 tab PO DAILY 10/19/24 12/22/24 12/21/24 History mcg-K 50 mcg-lutein 300 mcg tablet (Multivitamin Women 50 Plus) furosemide 20 mg tablet 20 mg PO Q48H 12/22/24 12/22/24 12/20/24 History magnesium oxide 400 mg (241.3 mg 400 mg PO DAILY 12/22/24 12/22/24 12/21/24 History magnesium) tablet Exam Airway Loose/Missing/Broken Teeth: Upper Assessment and Plan Assessment Anesthesia Assessment: Anesthesia Plan Discussed and Chart Reviewed Final Anesthetic Review NPO: Yes ASA Class: III Final Preanesthetic Review: Meds/Allgs Chart Reviewed, Consent Obtained/Reviewed and Anes Risks/Benef Reviewed Patient Risk: Intermediate Procedure Risk: Intermediate Anesthetic Plan Anesthetic Plan: MAC: Disposition: Standard PACU
--- NOTE | 2024-12-22 14:00 | PC.NURSE ---
Attempted to contact harish Jones @ number on file for update on pt room. No response.
--- NOTE | 2024-12-22 14:04 | HO.NURTONUR ---
Pt arrived c/o black tarry stools. Hx: HTN, HLD, HFpEF, mitral valve repair-bioprosthetic valve; history of PE, history of AFib on Eliquis, COPD on 3 L of home oxygen, anxiety, depression, GERD, suspected achalasia. H&H stable, given IV PPI, plan for EGD tomorrow w/possible colonoscopy (hold eliquis). ED workup pos for occult stool, mild PREMA (continuous IVF, LR @ 50mL/hr). Pt confused @ basline, x1 assist w/wheelchair to bathroom.
[2024-12-22] MEDS: Ferrous Sulfate 324 MG TABLET.DR PO (14:06)
[2024-12-22] MEDS: Lactated Ringers 1,000 ML 50 ML IVCONT (17:17)
[2024-12-22] MEDS: buPROPion HCl XL 150 MG TAB.ER.24H PO (17:17)
--- NOTE | 2024-12-22 18:39 | HO.SKINPHOTO ---
Location: right buttock Category: Stage: Length: Width: Depth: cm Location: Category: Stage: Length: Width: Depth: cm Location: Category: Stage: Length: Width: Depth: cm Location: Category: Stage: Length: Width: Depth: cm Location: Category: Stage: Length: Width: Depth: cm Location: Category: Stage: Length: Width: Depth: cm
[2024-12-23] VITALS (8 sets, daily range): BP systolic 135–163; BP diastolic 43–70; PULSE 66–81; RESP 14–28; TEMP 36–36.9; O2SAT 94–100
[2024-12-23 07:13] LABS: Hematocrit 34.9 % (37.0-47.0); Hemoglobin 11.4 g/dl (12.0-16.0); Mean Corpuscular HGB Conc 32.7 g/dl (31.0-35.0); Mean Corpuscular Hemoglobin 30.6 pg (27.0-33.0); Mean Corpuscular Volume 93.8 fL (80.0-98.0); NRBC Abs Auto 0.000 X10*3/uL (0.0-0.012); NRBC Pct Auto 0.0 /100WBC (0.0-0.2); Platelet Count 161 X10*3/uL (160-400); Red Blood Count 3.72 X10*6/uL (4.20-5.50); White Blood Count 11.9 X10*3/uL (4.8-10.8)
--- NOTE | 2024-12-23 09:10 | MHC.SHP ---
Pre-Procedural Eval Section A - 24 Hr Update-Section A only Date of Service: 12/23/24 The patient is an INPATIENT: Yes Changes since office visit: No Cold of Flu in the past 2 weeks, No New Medical Problems, No Changes in Medication and No Patient answered all questions The patient has been examined within 24 hours of the surgical procedure. The History & Physical has been completed within 30 days and I have reviewed it.: Yes Section B - Complete if H&P > 30 days Chief Complaint: Melena Allergies: Allergies Allergy/AdvReac Type Severity Reaction Status Date / Time fentanyl Allergy Difficulty Verified 12/21/24 15:59 Breathing Plan I have reviewed the history and physical and performed a pertinent physical examination on my patient. No changes have occurred unless specified. Time Spent With Patient Time: Total time managing care of this patient today ____ minutes.
--- NOTE | 2024-12-23 09:36 | PM.EVENT ---
Event Note Date of Service: 12/23/24 Event Note: EGD gastritis and esophagitis, no bleeding bx's taken changes from lap band ptresent at 45 cm. Rec advance diet restart AC in am. oral ppi Time Spent With Patient Time: Total time managing care of this patient today ____ minutes.
--- NOTE | 2024-12-23 10:10 | OP_ITS ---
DATE OF SERVICE: 12/23/2024 SURGEON: Bill Lee MD INDICATIONS: GI bleeding. PREOPERATIVE DIAGNOSIS: POSTOPERATIVE DIAGNOSIS: PROCEDURE PERFORMED: Upper endoscopy with biopsy. ESTIMATED BLOOD LOSS: COMPLICATIONS: ANESTHESIA: Monitored anesthesia care. ASSISTANTS: SPECIMENS: DESCRIPTION OF PROCEDURE: A history and physical was performed. The risks and benefits of the procedure were explained to the patient, and informed consent was obtained. The patient was placed in the left lateral decubitus position. The Olympus video gastroscope was introduced into the esophagus, stomach, and duodenum. Examination was performed. The scope was removed. She tolerated the procedure well and was returned to the recovery area in stable condition. FINDINGS: Esophagus: The esophagus showed some distal esophagitis, which was biopsied. There was no active bleeding. Stomach: The stomach showed no evidence of masses or ulcers. There were surgical changes from her lap band at about 45 cm from the lips. The scope passed through the area where the lap band was into the distal stomach. There was some associated gastritis at the site of the lap band. Biopsies were obtained from the antrum. Duodenum: The bulb and 2nd portion were normal. IMPRESSION: 1. Esophagitis. 2. Gastritis. RECOMMENDATION: 1. Follow up the biopsy results. 2. Anticoagulation can be restarted in the a.m. MD SOHA Valdivia/SONYA / [id number]
[2024-12-23] MEDS: buPROPion HCl XL 300 MG TAB.ER.24H PO (10:46)
[2024-12-23] MEDS: dilTIAZem HCL CD 180 MG CAP.ER.24H PO (10:46)
--- NOTE | 2024-12-23 12:00 | P.DS_ITS ---
DS: Providers Provider Date of Service: 12/23/24 Date of admission: 12/21/24 22:22 Date of discharge: 12/23/24 Primary care physician: CHER Tate Consults: 12/21/24 22:22 Consult to Gastroenterology Routine Consulting Provider: Bill Lee Reason for consultation: melena 12/22/24 15:16 Consult to Wound Care Routine Consulting Provider: [facility] [place] [facility] Reason for consultation: OPEN AREA RIGHT BUTTOCK DS: Diagnosis Discharge Diagnosis (1) Acute upper GI bleed: Status: Acute DS: Summary Hospital Course Hospital Course: admission hpi Chief Complaint: melena 84-year-old female with a past medical history of HTN, HLD, HFpEF, mitral valve repair-bioprosthetic valve; history of PE, history of AFib on Eliquis, COPD on 3 L of home oxygen, anxiety, depression, GERD, suspected achalasia; presented to the hospital today with a chief complaint of black tarry stools. Patient reports that over the past 3 days she has been having dark-colored stools. Reports having mild shortness of breath. Denies any nausea or vomiting. Denies any abdominal pain. Denies any chest pain or palpitations. Review of all other systems is negative except mentioned above ER course: Per ER physician, patient blood pressure was stable; hemoglobin stable at spaced at; abdominal exam is benign; CT abdomen pelvis showed no active bleeding; creatinine slightly elevated; potassium to 5.3. Patient was given IV Protonix. Gastroenterology was notified. Hospital course: patient presented with melana on eliquis. Initial Hemoglobin was 13 and has dropped to 11.9. She had EGD today showing gastritis and esophagitis, biopsy taken. Will put on Prilosec. She can resume eliquis tomorrow monring. Time Attestation Discharge Coordination Time (in mins): 35 Quality: Safe Use of Opioids Does Pt have an Active Cancer Diagnosis on the Problem List?: No Quality: Stroke Does the patient have a stroke diagnosis?: No Physical Exam Vital Signs: Vital Signs: Last Vital Signs Temp 97.3 F 12/23/24 10:27 Pulse 75 12/23/24 10:27 Resp 16 12/23/24 10:27 BP 139/65 12/23/24 10:27 Pulse Ox 99 12/23/24 10:27 O2 Del Method Nasal Cannula 12/23/24 10:27 O2 Flow Rate 2 12/23/24 10:27 BMI result Body Mass Index 32.9 Const: Other: General: AO X 3, no acute distress Resp: CTA bilateral CVS: S1,S2,RRR GI: +BS, NT, no distention Skin: No rash Neuro: motor grossly intact Psych: appropriate affect DS: Data Data Completed and Pending Completed studies during hospitalization [Text1]: Procedures Introduction of Remdesivir Anti-infective into Peripheral Vein, Percutaneous Approach, [employer] 5 (01/30/20) Transfusion of Nonautologous Frozen Plasma into Peripheral Vein, Percutaneous Approach (01/30/20) Pending studies at discharge: Pending at discharge 12/23/24 09:28 Surgical [PTH] Routine Labs on day of discharge: Laboratory Results - last 24 hr 12/23/24 05:53 WBC 11.9 H RBC 3.72 L Hgb 11.4 L Hct 34.9 L MCV 93.8 MCH 30.6 MCHC 32.7 RDW 15.3 Plt Count 161 MPV 11.9 Absolute Nucleated RBC 0.000 Nucleated RBC % (auto) 0.0 Preliminary micro results at discharge 12/21/24 18:25 Blood Culture - Preliminary Blood - Venous No growth after 24 hours. 12/21/24 17:49 Blood Culture - Preliminary Blood - Venous No growth after 24 hours. Discharge Plan Discharge Anticipated Discharge Date/Time: 12/23/24 11:56 Patient Disposition: Home, Self-Care Discharge Diagnosis: Upper GI bleed, anemia Referrals: Miguel Morrison PA [Primary Care Provider, Internal Medicine] - 1 Week Discharge Medications: Continued diltiazem HCl [DILT-XR] 180 mg capsule,ext.rel 24h degradable 180 mg PO DAILY apixaban 5 mg tablet 5 mg PO BID potassium chloride 10 mEq capsule, extended release 10 meq PO DAILY allopurinol 100 mg tablet 100 mg PO DAILY omeprazole 20 mg capsule,delayed release(DR/EC) 20 mg PO DAILY@0630 rosuvastatin 20 mg tablet 20 mg PO BEDTIME bupropion HCl 300 mg tablet extended release 24 hr 300 mg PO DAILY duloxetine 60 mg capsule,delayed release(DR/EC) 60 mg PO DAILY bupropion HCl 150 mg tablet extended release 24 hr 150 mg PO DAILY@1700 furosemide 40 mg tablet 40 mg PO Q48H ferrous sulfate 325 mg (65 mg iron) Tablet 325 mg PO Q48H albuterol sulfate 90 mcg/actuation Hfa Aerosol Inhaler 2 puff INHALATION Q6H PRN (Reason: Shortness Of Breath) buspirone 7.5 mg tablet 7.5 mg PO BID Breztri Aerosphere 160-9-4.8 mcg/actuation HFA aerosol inhaler 2 inh inhalation BID Multivitamin Women 50 Plus 8 mg iron-400 mcg-50 mcg Tablet 1 tab PO DAILY lisinopril 40 mg tablet 40 mg PO DAILY magnesium oxide 400 mg (241.3 mg magnesium) tablet 400 mg PO DAILY furosemide 20 mg Tablet 20 mg PO Q48H Discharge Orders: Discharge Order (Routine); Ordered 12/23/24 Ordered By: Jama Beckwith Diet: Advance to usual diet Activity on Discharge: As tolerated Stand Alone Forms: Patient Portal Discharge page Print Language: Chilean Care Plan Goals: recovery from upper gi bleeding and anemia Health Concerns: upper gi bleeding, anemia Plan of Treatment: can start taking eliquis tomorrow morning follow up with your doctor in a week, call for appointment Assessment: see above
--- NOTE | 2024-12-23 12:16 | MHC.CM.PN ---
IMM 12/23/24 Patient is discharged to home with resumption of services provided by [facility]. [facility] services will resume. Additional hours requested via Task. She has arranged for her son to provide transportation home.
[2024-12-23 12:50] LABS: Anion Gap 9 (12-20); Blood Urea Nitrogen 12 mg/dL (9-16); Calcium 9.7 mg/dL (8.4-10.2); Carbon Dioxide 32 mmol/L (22-29); Chloride 106 mmol/L (96-108); Creatinine Clr Calc Pharmacy 41.2; Estimated Glomerular Filt Rate 56; Potassium 4.1 mmol/L (3.3-5.1); Sodium 143 mmol/L (135-145)
--- NOTE | 2024-12-23 13:35 | HO.WOUND ---
Wound Consult: Initial 84 yr old [place] [facility] [place]- See progress notes and H&P for detailed history. Wound consult placed for right buttock. Attempted to see patient x2, patient off floor for procedure and then patient up in chair for lunch, per direct care team patient to be discharged home today. Previous photo documentation reviewed from direct care team from 12/22/24 of right buttock wound, appropriate interventions in place. Right buttock Etiology: Deep tissue pressure injury Present on Admission declaring Measurements: 1.5cm x 1cm x 0.1cm Wound Bed: primarily intact dark purple area with small area of superficial skin erosion noted, appears to have moist pink base. Drainage / Odor: none Clara wound: ? No Induration, Fluctuance or Warmth noted Goals of Treatment: ? offloading, moist wound healing with foam Recommendations: 1. Turn and Reposition every 2 hours and as needed for patient comfort. Use pillows or wedges to support off loading positions. 2. Off Load all bony prominences with use of pillows and heel boots if needed. Apply Preventative foams where needed. 3. Monitor for incontinence and moisture control, use barrier creams when needed for prevention and treatment. 4. Provide adequate and supplemental nutrition. 5. Order or Continue low air loss mattress. 6. When applicable maintain blood glucose levels per Providers order. Right Buttock: Off Load Pressure with Q2 hr turns and use of pillows - Routine cleansing. Apply skin prep allow to dry. Cover with foam dressing to aid in off loading and protection from friction. Change every 3 days and PRN. Re-consult wound care Nurse for wound deterioration or wound changes.
== END 2024-12-23 14:47 | disposition home health service (06) | DRG 368 ==
LOC: HO.ED 17:05 → HO.EDOVER 22:29 → HO.S3 12-22 13:44
PROVIDERS: Internal Medicine Gastroenterology; Physician Assistant Medical; Admitting Provider Hospitalist; Emergency Provider Student in an Organized Health Care Education/Training Program; PCP Physician Assistant Medical; Visit Provider Internal Medicine
PROC: 0DB38ZX Excision of Lower Esophagus, Via Natural or Artificial Opening Endoscopic, Diagnostic (ICD-10-PCS; principal; 2024-12-23 11:50)
DX: K20.91 Esophagitis, unspecified with bleeding (principal); K29.71 Gastritis, unspecified, with bleeding; I50.32 Chronic diastolic (congestive) heart failure; N17.9 Acute kidney failure, unspecified; Z95.2 Presence of prosthetic heart valve; I11.0 Hypertensive heart disease with heart failure; J44.9 Chronic obstructive pulmonary disease, unspecified; Z99.81 Dependence on supplemental oxygen; I48.91 Unspecified atrial fibrillation; E87.5 Hyperkalemia; D64.9 Anemia, unspecified; F41.9 Anxiety disorder, unspecified; F32.A Depression, unspecified; Z86.711 Personal history of pulmonary embolism; Z87.891 Personal history of nicotine dependence; Z79.01 Long term (current) use of anticoagulants; Z79.899 Other long term (current) drug therapy
CPT/HCPCS: 36415; 74176; 80048; 80053; 81001; 82272; 83605; 83690; 83735; 85025; 85027; 86850; 86900; 86901; 87040; 88305; 99285; J1308; J2354; J2470; J2704; J7120

== ENCOUNTER → 2024-12-21 18:36 | Outpatient (BNV) | payer MEDICARE, SELFPAY | PROVIDERS: Emergency Provider Student in an Organized Health Care Education/Training Program; PCP Physician Assistant Medical; Visit Provider Radiology Diagnostic Radiology | DX: K92.2 Gastrointestinal hemorrhage, unspecified (principal) | CPT/HCPCS: 74176 ==

== ENCOUNTER → 2024-12-21 22:22 | Outpatient (BNV) | payer MEDICARE, SELFPAY | PROVIDERS: Admitting Provider Hospitalist; Emergency Provider Student in an Organized Health Care Education/Training Program; PCP Physician Assistant Medical; Visit Provider Internal Medicine | DX: K92.2 Gastrointestinal hemorrhage, unspecified (principal) | CPT/HCPCS: 99232 ==